=== PATIENT | female | born 1940 | race Caucasian/White ===

== ENCOUNTER → 2017-10-24 14:25 | Outpatient (REF) | payer MEDICARE, MEDICAID, SELFPAY ==
[2017-10-24 20:53] LABS: Prothrombin Time 9.4 sec (9.3-10.8)
[2017-10-24 20:58] LABS: Abs Immature Grans 0.01 k/cumm (0.0-0.09); Absolute Basophil Count 0.01 k/cumm (0.0-0.2); Absolute Eosinophil Count 0.07 k/cumm (0.0-0.7); Absolute Monocyte Count 0.64 k/cumm (0.11-0.7); Absolute Neutrophil Count 3.09 k/cumm (1.2-6.7); Basophils % 0.2; Eosinophils % 1.4; HCT 39.1 % (36.0-46.0); HGB 12.7 g/dL (12.0-15.5); Immature Grans % 0.2; Lymphocytes % 25.4; Mean Corp. HGB Concentration 32.5 g/dL (32.0-36.0); Mean Corpuscular Hemoglobin 31.4 pg (27.0-33.0); Mean Corpuscular Volume 96.5 fL (80-95); Mean Platelet Volume 9.8 fL (8.0-11.0); Monocytes % 12.5; Neutrophils % 60.3; Platelet Count 236 x1000/uL (130-400); RBC 4.05 m/cumm (4.00-5.20); RBC Distribution Width 12.9 % (11.7-14.6); White Blood Cell Count 5.12 k/cumm (4.4-10.8)
[2017-10-24 21:24] LABS: Anion Gap 9.7 mmol/L (3-11); BUN 17 mg/dL (7-18); CO2 27.3 mmol/L (21.0-32.0); CREATININE 1.02 mg/dL (0.55-1.02); Calcium 9.3 mg/dL (8.5-10.1); Chloride 104 mmol/L (98-107); Estimated GFR 52.83 (mL/min/1.73m2); Glucose 82 mg/dL (70-100); Potassium 4.8 mmol/L (3.5-5.1); Sodium 141 mmol/L (136-145)
== END ==
LOC: NCHCN 14:25
PROVIDERS: PCP Physician Assistant Medical; Visit Provider Physician Assistant Medical
DX: I67.1 Cerebral aneurysm, nonruptured (principal); I73.9 Peripheral vascular disease, unspecified; Z01.818 Encounter for other preprocedural examination
CPT/HCPCS: 80048; 85025; 85610

== ENCOUNTER → 2017-10-26 00:15 | Outpatient (CLI) | payer MEDICARE, MEDICAID, SELFPAY ==
--- NOTE | 2017-10-26 12:46 | DI.REPORT_ITS ---
SYMPTOMS/DIAGNOSIS: PAIN RT SI JOINTS, M53.3, RT HIP PAIN, M25.551 SI JOINTS: Three views were obtained. Mild degenerative changes are seen at the sacroiliac joints bilaterally. No ankylosis is seen. The bones appear mildly osteopenic. No acute fracture or subluxation is seen. Vascular calcifications are present. IMPRESSION: Mild degenerative changes of the sacroiliac joints. RIGHT HIP AND PELVIS: Two views. The right hip is well maintained. The bones are intact. No significant arthrosis is seen of the right hip. The soft tissues are unremarkable IMPRESSION: Negative right hip.
== END ==
PROVIDERS: PCP Physician Assistant Medical; Visit Provider Internal Medicine Rheumatology
DX: M53.3 Sacrococcygeal disorders, not elsewhere classified (principal); M25.551 Pain in right hip; M85.88 Other specified disorders of bone density and structure, other site; J44.9 Chronic obstructive pulmonary disease, unspecified; I67.1 Cerebral aneurysm, nonruptured; Z01.818 Encounter for other preprocedural examination
CPT/HCPCS: 71046; 72202; 73502

== ENCOUNTER → 2017-10-26 00:16 | Outpatient (CLI) | payer MEDICARE, MEDICAID, SELFPAY ==
--- NOTE | 2017-10-26 12:40 | DI.REPORT_ITS ---
SYMPTOMS/DIAGNOSIS: PRE OP, Z01.818, CEREBRAL ANEURYSM, I67.1 CHEST: Frontal and lateral views. Comparison is 08/14/16. The heart size and pulmonary vasculature are stable and within normal limits. No evidence of acute pneumonia or congestive heart failure is seen. The lungs appear hyperinflated suggesting underlying COPD. Pulmonary fibrotic changes are noted. No effusions or pneumothoraces are identified. Degenerative changes are seen in the spine. IMPRESSION: No acute pulmonary process.
== END ==
PROVIDERS: PCP Physician Assistant Medical; Visit Provider Physician Assistant Medical
DX: M53.3 Sacrococcygeal disorders, not elsewhere classified (principal); M25.551 Pain in right hip; M85.88 Other specified disorders of bone density and structure, other site; J44.9 Chronic obstructive pulmonary disease, unspecified; I67.1 Cerebral aneurysm, nonruptured; Z01.818 Encounter for other preprocedural examination
CPT/HCPCS: 71046

== ENCOUNTER 2017-12-25 14:44 | Outpatient (REF) | payer MEDICARE, MEDICAID, SELFPAY ==
[2017-12-25 21:02] LABS: Abs Immature Grans 0.01 k/cumm (0.0-0.09); Absolute Basophil Count 0.02 k/cumm (0.0-0.2); Absolute Eosinophil Count 0.06 k/cumm (0.0-0.7); Absolute Lymphocyte Count 1.08 k/cumm (1.2-3.4); Absolute Monocyte Count 0.36 k/cumm (0.11-0.7); Absolute Neutrophil Count 2.98 k/cumm (1.2-6.7); Basophils % 0.4; Eosinophils % 1.3; HGB 12.7 g/dL (12.0-15.5); Immature Grans % 0.2; Lymphocytes % 23.9; Mean Corp. HGB Concentration 31.8 g/dL (32.0-36.0); Mean Corpuscular Hemoglobin 30.2 pg (27.0-33.0); Mean Corpuscular Volume 95.2 fL (80-95); Mean Platelet Volume 9.8 fL (8.0-11.0); Neutrophils % 66.2; Platelet Count 249 x1000/uL (130-400); RBC Distribution Width 13.1 % (11.7-14.6); White Blood Cell Count 4.51 k/cumm (4.4-10.8)
[2017-12-25 21:10] LABS: ALT 36 U/L (12-78); AST 36 U/L (15-37); Albumin 3.6 g/dL (3.4-5.0); Alkaline Phosphatase 96 U/L (46-116); Anion Gap 5.3 mmol/L (3-11); BUN 17 mg/dL (7-18); Bilirubin, Total 0.4 mg/dL (0.2-1.0); CO2 29.7 mmol/L (21.0-32.0); CREATININE 0.82 mg/dL (0.55-1.02); Calcium 9.2 mg/dL (8.5-10.1); Chloride 105 mmol/L (98-107); Glucose 90 mg/dL (70-100); Potassium 4.6 mmol/L (3.5-5.1); Sodium 140 mmol/L (136-145); Total Protein 6.5 g/dL (6.4-8.2)
== END 2017-12-25 15:04 ==
LOC: NCHCN 14:44
PROVIDERS: PCP Physician Assistant Medical; Visit Provider Physician Assistant Medical
DX: R53.83 Other fatigue (principal)
CPT/HCPCS: 80053; 85025

== ENCOUNTER 2018-01-03 00:31 | Outpatient (CLI) | payer MEDICARE, MEDICAID, SELFPAY ==
--- NOTE | 2018-01-03 11:12 | DI.MAMMO_ITS ---
SYMPTOMS/DIAGNOSIS: SCREENING, Z12.31 MAMMOGRAM: Mammograms were interpreted according to the usual protocol including computer analysis with CAD system, tomosynthesis and C view imaging. Comparison is made with exams from 2012 through 2017. The breasts are composed of heterogeneously dense fibroglandular tissue, breast density Category C. No suspicious masses or suspicious microcalcifications are seen. There has been no significant change. IMPRESSION: Category I C, negative mammogram. Yearly screening mammography is recommended. [facility] ASSESSMENT OF FINDINGS: Negative. Category 1. Patient will receive a letter notifying them of these results. Bi-RADS category C. The breasts are heterogeneously dense, which may obscure small masses.
== END 2018-01-03 00:51 ==
PROVIDERS: PCP Physician Assistant Medical; Visit Provider Obstetrics & Gynecology Gynecology
DX: Z12.31 Encounter for screening mammogram for malignant neoplasm of breast (principal)
CPT/HCPCS: 77063; 77067

== ENCOUNTER 2018-01-29 08:33 | Outpatient (CLI) | payer MEDICARE, MEDICAID, SELFPAY ==
[2018-01-29 20:02] LABS: Vitamin B12 422 pg/mL (193-986)
[2018-01-31 12:28] LABS: Methylmalonic Acid 0.24 nmol/mL (<=0.40)
== END 2018-01-29 08:53 ==
PROVIDERS: PCP Physician Assistant Medical; Visit Provider Physician Assistant Medical
DX: E53.8 Deficiency of other specified B group vitamins (principal)
CPT/HCPCS: 36415; 80186; 82607

== ENCOUNTER 2019-01-06 01:00 | Outpatient (CLI) | payer MEDICARE, MEDICAID, SELFPAY ==
--- NOTE | 2019-01-06 11:10 | DI.MAMMO_ITS ---
EXAM: MAMMO SCREENING CLINICAL HISTORY: SCREENING, Z12.31 TECHNIQUE: Mammograms were interpreted according to the usual protocol including computer analysis with CAD system, tomosynthesis and C-view imaging. COMPARISON: December 2017 FINDINGS: The breasts are heterogeneously dense. No dominant mass or clumped microcalcification is identified in either breast. The current examination is compared with previous examinations including January 12 and there has been no gross interval change in appearance in comparison with the previous studies. IMPRESSION: No specific evidence of malignancy at this time. Routine screening examinations are suggested at year ly intervals in this age group according to the ACS/ACR guidelines. Category 1, breast density catego ry C. BI-RADS Cat 1 - Negative Breast Density - Category C - Heterogeneously dense
== END 2019-01-06 01:20 ==
PROVIDERS: PCP Physician Assistant Medical; Visit Provider Obstetrics & Gynecology Gynecology
DX: Z12.31 Encounter for screening mammogram for malignant neoplasm of breast (principal)
CPT/HCPCS: 77063; 77067

== ENCOUNTER 2019-04-01 12:14 | Outpatient (REF) | payer MEDICARE, MEDICAID, SELFPAY ==
[2019-04-01 22:03] LABS: Anion Gap 7.5 mmol/L (3-11); BUN 19 mg/dL (7-18); CO2 30.5 mmol/L (21.0-32.0); CREATININE 0.98 mg/dL (0.55-1.02); Calcium 9.2 mg/dL (8.5-10.1); Calculated LDL 144 mg/dL; Chloride 104 mmol/L (98-107); Cholesterol 247 mg/dL (<200); Estimated GFR 55.18 (mL/min/1.73m2); Glucose 93 mg/dL (74-106); HDL Cholesterol 90 mg/dL (40-60); Potassium 4.5 mmol/L (3.5-5.1); Sodium 142 mmol/L (136-145); Triglyceride 66 mg/dL (<150)
[2019-04-01 22:04] LABS: Hemoglobin A1C 5.8 % (3.8-5.6)
== END 2019-04-01 12:34 ==
LOC: NCHCN 12:14
PROVIDERS: PCP Physician Assistant Medical; Visit Provider Physician Assistant Medical
DX: I10 Essential (primary) hypertension (principal); R73.09 Other abnormal glucose
CPT/HCPCS: 80048; 80061; 83036

== ENCOUNTER 2019-09-09 12:11 | Outpatient (REF) | payer MEDICARE, MEDICAID, SELFPAY ==
--- NOTE | 2019-09-09 10:20 | PAPFT_PTH ---
PATIENT: Rehan Gann LOC: [facility] U#:[id number] AGE/SX: 79/F ROOM: RE09/09/[address]: Michelle Kingston : 1940 BED: DIS: 09/09/2019 SPEC #: [id number] RECD: 09/09/19 12:35 STATUS: NELSON REQ #: [id number] JAZMINE: 09/09/19 10:[address]: Michelle Kingston DEPT: [facility] [place] Cytology RECD BY: Aleja Guan ENTERED: 09/09/19 12:35 SP TYPE: PAPFT OTHR DR: Raquel Martin Tissues: 1 - CX/ENDOCX FOR PAP SMEARS Procedures: PAP THIN PREP/UVM Screening HPV DNA PROBE Comments: [id number]
== END 2019-09-09 12:31 ==
LOC: LBN 12:11
PROVIDERS: PCP Physician Assistant Medical; Visit Provider Obstetrics & Gynecology Gynecology
DX: Z12.4 Encounter for screening for malignant neoplasm of cervix (principal); Z11.51 Encounter for screening for human papillomavirus (HPV)
CPT/HCPCS: 88142; 87624

== ENCOUNTER 2019-12-17 06:22 | Emergency (ER) | payer MEDICARE, MEDICAID, SELFPAY ==
[2019-12-17] VITALS (9 sets, daily range): BP systolic 167–183; BP diastolic 72–80; PULSE 75–87; RESP 18–19; TEMP 36.6–36.9; O2SAT 79–97
--- NOTE | 2019-12-17 06:25 | ED.GENADUL_ITS ---
Discharge Plan Disposition Patient Disposition: HOME Condition: Improving Discharge Details Clinical Impression: Gallstones Primary Care Provider: Raquel Martin ED Provider: Marty Hansen Home Meds and New Rx's Prescriptions: New ondansetron HCl [Zofran] 4 mg tablet 4 mg PO QID PRN (Reason: nausea and vomiting) Qty: 10 RF: 0 Continued Spiriva with HandiHaler 18 MCG capsule, w/inhalation device 18 mcg Inhalation DAILY RF: 0 triamcinolone acetonide 0.5 % ointment 1 applic TP BID Qty: 15 RF: 1 lisinopril 2.5 MG tablet 2.5 mg PO DAILY RF: 0 albuterol sulfate [Proventil HFA] 200 PUFF HFA aerosol inhaler 2 puff Inhalation .Q4-6H PRN PRNRF: 0 Discharge Instructions Instructions: Biliary Colic (ED), Gallstones (ED) Additional Instructions: Home to rest today. Small, frequent sips of fluids to maintain hydration. Avoid fatty or fried foods. Return if you develop a fever, persistent vomiting, pain, or any other acute concerns. We will ask our care management team to arrange a follow-up appointment for you in surgery clinic. Resume normal routine and activities. May use Zofran as needed for nausea or abdominal pressure. Medical Decision Making <Justin Pagan MD - Last Filed: 12/17/19 07:44> Patient presents to ED with generalized abdominal discomfort mostly upper in nature with some nausea and belching. Denies chest pain. Has no localizing tenderness on exam. Consider gallbladder disease, ulcer disease, pancreatitis, less likely cardiac. IV placed. Fluids started. Zofran, Pepcid, morphine ordered. Laboratory studies sent. CT scan abdomen pelvis ordered. 07:45 - EKG without acute changes. Laboratory studies unremarkable. Urinalysis and CT scan pending. Patient declined morphine. Patient will be signed out to oncoming physician, Dr. Hansen, to follow-up on CT scan and reevaluate patient for disposition. Medical Records Medical records reviewed: Yes I reviewed the patient's medical records. Lab Data Lab results reviewed: Yes I reviewed the patient's lab results. ECG Data Attestation: I personally reviewed and interpreted this ECG (s) as follows: Interpretation: See EKG <Marty Hansen MD - Last Filed: 12/17/19 09:14> Received signout from Dr. Pagan. Patient improved following medications. Her CT images noted prominently distended gallbladder. See formal report. Labs unremarkable. Patient referred for ultrasound, + gallstones, no pericholecystic fluid or wall thickening. Consistent with biliary colic. We will refer her to surgery clinic for consultation. Discussed with her indications to seek return. She is stable for discharge home. Lab Data Lab results reviewed: Yes I reviewed the patient's lab results. Labs: Laboratory Results - last 24 hr 12/17/19 12/17/19 06:35 06:35 WBC 5.68 RBC 4.61 Hgb 14.1 Hct 44.1 MCV 95.7 H MCH 30.6 MCHC 32.0 RDW 12.6 Plt Count 186 MPV 9.2 Immature Gran % 0.4 Neutrophils % 81.9 Lymphocytes % 11.1 Monocytes % 6.2 Eosinophils % 0.2 Basophils % 0.2 Nucleated RBC % 0 Absolute Neutrophils 4.66 Absolute Lymphocytes 0.63 L Absolute Monocytes 0.35 Absolute Eosinophils 0.01 Absolute Basophils 0.01 Sodium 138 Potassium 4.4 Chloride 103 Carbon Dioxide 28.5 Anion Gap 6.5 BUN 15 Creatinine 0.89 Estimated GFR/1.73 m2 >= 60.00 Glucose 121 H Calcium 9.8 Magnesium 2.0 Total Bilirubin 0.6 AST 34 ALT 20 Alkaline Phosphatase 75 Troponin I < 0.05 Total Protein 7.4 Albumin 4.0 Lipase 109 HPI <Justin Pagan MD - Last Filed: 12/17/19 07:44> General Mode of arrival: wheelchair . Date/Time Provider Initiated Documentation: 12/17/19 06:25 . Limitations to Documentation: no limitations . Information obtained by: patient, RN notes reviewed and old records reviewed . HPI Narrative: Patient presents to ED with generalized abdominal discomfort, bloated and distended feeling. Some nausea and dry heaves intermittently overnight but no vomiting. No diarrhea. Denies having chest pain. Does report fair amount of belching. Cannot localize the pain anywhere in particular though seems to be mostly upper in nature. Denies fever, cough, shortness of breath. No urinary symptoms. Slight radiation to the back though not consistently. Status post tubal ligation but no other abdominal surgery in the past. Also complains of very mild headache. No other neurologic symptomatology. No URI symptoms. Related Data Home Medications Medication Instructions Recorded Confirmed lisinopril 2.5 mg PO DAILY 10/14/15 12/17/19 Spiriva with HandiHaler 18 mcg INHALATION DAILY tab-cap 01/31/17 12/17/19 albuterol sulfate [Proventil HFA] 2 puff INHALATION .Q4-6H PRN PRN 06/06/1711/25 triamcinolone acetonide 0.5 % 1 applic TP BID #15 gm 11/27/18 12/17/19 topical ointment ondansetron HCl [Zofran] 4 mg PO QID PRN #10 tab 12/17/19 Previous Rx's Medication Instructions Recorded triamcinolone acetonide 0.5 % 1 applic TP BID #15 gm 11/27/18 topical ointment ondansetron HCl [Zofran] 4 mg PO QID PRN #10 tab 12/17/19 Allergies Allergy/AdvReac Type Severity Reaction Status Date / Time pseudoephedrine HCl Allergy Intermediate Swelling/Ed Unverified 12/17/19 06:31 [From Sudafed] yuniel Sulfa (Sulfonamide Allergy itch/rash Unverified 12/17/19 06:31 Antibiotics) erythromycin base AdvReac Intermediate GI upset Unverified 12/17/19 06:31 codeine AdvReac hyper Unverified 12/17/19 06:31 Review of Systems <Justin Pagan MD - Last Filed: 12/17/19 07:44> Narrative: 01/06 Review of Systems completed and is negative except as stated above in HPI (Systems reviewed: Const, Eyes, ENT, Resp, CV, GI, , MSK, Skin, Neuro) PFSH <Justin Pagan MD - Last Filed: 12/17/19 07:44> Medical History (Updated 12/17/19 @ 09:05 by Marty Hansen MD) Cerebral aneurysm without rupture 2018 patient had aneurysm clipped at [facility]. No sequela Claudication of left lower extremity Dense breasts 2019. Category C. Normal mammogram. 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 + HR HPV beginning 2003. 2013 Pap Nl/HPV Neg 2014 Pap Nl/HPV + 2016 Pap Nl/HPV + ( Neg HPV 16 & 18) 2017 Pap Nl/HPV Neg HTN (hypertension) PMR (polymyalgia rheumatica) Pulmonary emphysema Surgical History S/P cataract surgery S/P tubal ligation Social History Smoking/Tobacco Use Status: Former Tobacco Use Tobacco: How many years used: 10 Alcohol Intake: never Drug use: Never Substance use type: does not use Household members: none and other Details: Lives alone at [address] [place]. D x20 years Number of Children: 5 number of grandchildren: 3 current occupation: Retired with 50 years [employer] Pets and animals: Yes (Jose Currie) Pets and animals: dog(s) Sexually active: No Do you feel safe at home: Yes Do you feel safe in your relationship?: Yes Additional Social history: Son-Arron. 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 GC - Bhargav 24, Naeem 20, Pavithra 21. Female Reproductive History Menstrual Menopause type: natural History History 6 Para Hx # Term Pregnancies 5 Multiple births Hx # Pregnancies Ectopic pregnancies AB induced Hx Number of Living Children AB spontaneous Exam <Justin Pagan MD - Last Filed: 12/17/19 07:44> Narrative Exam Narrative: Vitals: Afebrile. Hypertensive otherwise normal vitals and normal room air pulse ox. Const: WDWN elderly female in NAD. HEENT: NC/AT. Normal facial exam. Eyes: Normal conjunctiva and sclera. Neck: Supple. Trachea midline. Lungs: Normal respiratory effort. Lungs are clear. Cor: RRR without murmur/gallop. Good radial pulses. GI: Soft. Some mild distention. Generalized upper abdominal discomfort but no true tenderness. No guarding or rebound. No Ruvalcaba sign. Neuro: A+O x 3. Normal speech, mentation, gait. Cranial nerves II - XII grossly intact. No gross motor or sensory deficit. Ext: No C/C/E. Skin: Warm and dry without rash. Sign Out <Justin Pagan MD - Last Filed: 12/17/19 07:44> Sign Out Data: Sign Out Comment: pending CT Last updated by Justin Pagan MD at 12/17/19 07:48
--- NOTE | 2019-12-17 06:30 | RT.EKG_ITS ---
APPROVED REPORT Exam: Resting ECG Patient Location: E HR:76 bpm ECG Measurements Heart Rate 76 AXIS KS 164 P -54 QRSd 134 QRS 71 QT 439 T 12 QTc 493 Conclusion Sinus or ectopic atrial rhythm...P axis (-45,135) Right bundle branch block...QRSd>120, terminal axis(90,270) No STEMI.
--- NOTE | 2019-12-17 06:30 | DI.CT_ITS ---
EXAM: CT ABDOMEN PELVIS W CLINICAL HISTORY: generalized abd pain, distended TECHNIQUE: Imaging Protocol: Axial computed tomography images with coronal and sagittal reformatted images were created and reviewed CONTRAST MATERIAL: Intravenous: Omnipaque 350 Contrast volume:100 mL Oral: No COMPARISON: No exams were available for comparison FINDINGS: ABDOMEN: Lung Bases: Centrilobular emphysema. Nodular opacities are seen in the lung bases bilaterally. Smal l hiatal hernia. Liver: Normal density. No measurable mass. There is a nodular contour of the liver suspicious for hep atic cirrhosis. Portal, Superior Mesenteric, and Splenic Veins: Unremarkable. Gallbladder and Biliary Tract: No radiodense calculus or dilation. Pancreas: Normal density, no abnormal calcifications or inflammatory process. Spleen: Normal. Adrenals: No masses seen. Kidneys: Normal size, contour and axis. No radiodense stones or obstructive uropathy. Tiny hypodensit y in the lower pole of the left kidney. It is too small for further characterization but likely refl ects a small cyst. Abdominal Aorta: Abdominal portion non-dilated. 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 Bowel: No obstruction or bowel wall thickening. No evidence of appendicitis. Colonic diverticulosis. No evidence of acute diverticulitis. Peritoneal Cavity: No ascites, collection or mesenteric inflammatory response. Lymph Nodes: Within normal limits. Bones: Degenerative changes are seen in the spine. Soft Tissues: Unremarkable. PELVIS: Bladder: Symmetric distention, no gross wall thickening. Reproductive Organs: Unremarkable as visualized. Lymph Nodes: Within normal limits. Bones: Degenerative changes. IMPRESSION: 1. Nodular opacities in the lung bases which may reflect non-specific small airways disease. 2. Findings suggestive of hepatic cirrhosis. 3. Colonic diverticulosis but no evidence of acute diverticulitis. 4. No stones or biliary ductal dilatation. If there is concern for gallbladder disease, ultrasound m ay be considered for further evaluation. RADIATION DOSE DELIVERED: 945.47mGy.cm Total DLP DATA REPOSITORY: All CT scans at this facility are submitted to the National Radiology Data Registry (NRDR) Dose Index Registry (DIR) with the [employer] (ACR). RADIATION OPTIMIZATION: All CT scans at this facility use at least one of these dose optimization te chniques: automated exposure control; mA and/or kV adjustment per patient size (includes targeted exa ms where dose is matched to clinical indication); or iterative reconstruction.
[2019-12-17] MEDS: Ondansetron 4 MG/2 ML VIAL IVP (06:53)
[2019-12-17] MEDS: FAMOTIDINE 20 MG/50 ML BAG 100 MG IVPB (06:53)
[2019-12-17] MEDS: Normal Saline Flush 10 ML SYR IVP (06:54)
[2019-12-17] MEDS: Lactated Ringers 1,000 ML 125 ML IV (06:54)
[2019-12-17 07:05] LABS: Abs Immature Grans 0.02 10^3/uL (0.0-0.06); Absolute Basophil Count 0.01 10^3/uL (0.0-0.2); Absolute Eosinophil Count 0.01 10^3/uL (0.0-0.7); Absolute Lymphocyte Count 0.63 10^3/uL (1.2-3.4); Absolute Monocyte Count 0.35 10^3/uL (0.1-0.8); Absolute Neutrophil Count 4.66 10^3/uL (1.2-6.7); Basophils % 0.2; Eosinophils % 0.2; HCT 44.1 % (36.0-46.0); HGB 14.1 g/dL (11.2-15.7); Immature Grans % 0.4; Lymphocytes % 11.1; MCH 30.6 pg (27.0-33.0); MCV 95.7 fL (80-95); MPV 9.2 fL (8.0-11.0); Monocytes % 6.2; Neutrophils % 81.9; Nucleated RBC 0 %; Platelet Count 186 10^3/uL (130-400); RBC 4.61 10^6/uL (3.93-5.22); RDW 12.6 % (11.7-14.6); RDW-SD 43.8 fL; WBC 5.68 10^3/uL (4.4-10.8)
[2019-12-17 07:29] LABS: ALT 20 U/L (14-59); AST 34 U/L (15-37); Alkaline Phosphatase 75 U/L (46-116); Anion Gap 6.5 mmol/L (3-11); BUN 15 mg/dL (7-18); Bilirubin, Total 0.6 mg/dL (0.2-1.0); CO2 28.5 mmol/L (21.0-32.0); CREATININE 0.89 mg/dL (0.55-1.02); Calcium 9.8 mg/dL (8.5-10.1); Chloride 103 mmol/L (98-107); Glucose 121 mg/dL (74-106); Lipase 109 U/L (73-393); Potassium 4.4 mmol/L (3.5-5.1); Sodium 138 mmol/L (136-145); Total Protein 7.4 g/dL (6.4-8.2)
[2019-12-17 07:32] LABS: Troponin I < 0.05 ng/mL (<0.06)
[2019-12-17] MEDS: Omnipaque 350 MG/ML 100 ML BTL IV (07:50)
--- NOTE | 2019-12-17 08:15 | DI.US_ITS ---
EXAM: US ABDOMEN LIMITED CLINICAL HISTORY: abd pain, distended gallbladder TECHNIQUE: Ultrasound abdomen performed using standard protocol. COMPARISON: CT CT ABDOMEN PELVIS W from 12/17/2019 FINDINGS: ABDOMINAL AORTA AND IVC: Visualized portions normal caliber. PANCREAS: Normal where visualized. LIVER: Increased echogenicity consistent with fatty infiltration. Hepatopedal flow in the Portal Vei n. 14.3 cm in length. GALLBLADDER: Multiple mobile gallstones. The largest measures 1.6 cm. No evidence of wall thickenin g. No pericholecystic fluid identified. BILIARY SYSTEM: Common bile duct measures < 7 mm. No intrahepatic biliary ductal dilation. THOMPSON'S SIGN: Negative. KIDNEYS: Right kidney is unremarkable. No evidence of renal calculi. No evidence of hydronephrosis. No renal mass or cyst identified. ASCITES: None seen. IMPRESSION: 1. Cholelithiasis. No biliary ductal dilatation. No sonographic findings to suggest acute cholecyst itis. 2. Fatty liver. 3. Findings were discussed with the emergency department on the date of the examination. DATA REPOSITORY:
--- NOTE | 2019-12-17 08:17 | DI.VRAD_ITS ---
PROCEDURE INFORMATION: Exam: CT Abdomen And Pelvis With Contrast Exam date and time: 12/17/2019 6:46 AM Age: 79 years old Clinical indication: Other: Generalized abd pain, distended TECHNIQUE: Imaging protocol: Computed tomography of the abdomen and pelvis with intravenous contrast. Contrast material: OMNIPAQUE 350; Contrast volume: 100 ml; Contrast route: INTRAVENOUS (IV); COMPARISON: CR RT HIP COMPLETE AP PELVIS 10/26/2017 12:46 PM FINDINGS: Lungs: Nodular opacities at the lung bases may reflect nonspecific small airways disease. Liver: Equivocal micro nodular hepatic cirrhosis Gallbladder and bile ducts: The gallbladder is prominently distended but not obviously thick-walled. No calcified stones evident. Sonography however recommended if right upper quadrant symptoms are present to exclude cholecystitis. Pancreas: Normal. No ductal dilation. Spleen: Normal. No splenomegaly. Adrenals: Normal. No mass. Kidneys and ureters: Normal. No hydronephrosis. Stomach and bowel: Unremarkable. No obstruction. No mucosal thickening. Appendix: No evidence of appendicitis. Intraperitoneal space: Unremarkable. No free air. No significant fluid collection. Vasculature: Prominent atherosclerotic calcifications of the abdominal aorta are noted. High-grade ostial SMA stenosis Lymph nodes: Unremarkable. No enlarged lymph nodes. Urinary bladder: Unremarkable as visualized. Reproductive: Unremarkable as visualized. Bones/joints: Unremarkable. No acute fracture. Soft tissues: Unremarkable. IMPRESSION: 1. Nodular opacities at the lung bases may reflect nonspecific small airways disease. 2. The gallbladder is prominently distended but not obviously thick-walled. No calcified stones evident. Sonography however recommended if right upper quadrant symptoms are present to exclude cholecystitis. 3. Equivocal micro nodular hepatic cirrhosis Dictated and Authenticated by: Moiz Lizama MD. Ordering:VASU Anderson MD
--- NOTE | 2019-12-17 09:00 | NUR.NOTE ---
Nursing Note: Referral for follow up with [facility] faxed. Aditi Burciaga
== END 2019-12-17 09:17 | disposition home or self-care (01) ==
PROVIDERS: Emergency Medicine; Emergency Provider Emergency Medicine; PCP Physician Assistant Medical
DX: K80.20 Calculus of gallbladder without cholecystitis without obstruction (principal); I10 Essential (primary) hypertension
CPT/HCPCS: 36415; 80053; 83690; 93005; 96361; 96365; 96366; 96375; 99285; 74177; 76705; 83735; 84484; 85025; 93010; J2270; J2405; J3490

== ENCOUNTER → 2019-12-19 10:52 | Outpatient (BNVA) | payer MEDICARE, MEDICAID, SELFPAY | PROVIDERS: PCP Physician Assistant Medical; Referring Provider Physician Assistant Medical; Visit Provider Surgery | DX: K80.50 Calculus of bile duct without cholangitis or cholecystitis without obstruction (principal); Z11.59 Encounter for screening for other viral diseases; I10 Essential (primary) hypertension | CPT/HCPCS: 99213 ==

== ENCOUNTER 2019-12-26 04:21 | Outpatient (CLI) | payer MEDICARE, MEDICAID, SELFPAY ==
[2019-12-27 20:39] LABS: COVID-19 RT-PCR Result NEGATIVE (Negative)
== END 2019-12-26 04:41 ==
PROVIDERS: PCP Physician Assistant Medical; Visit Provider Surgery
DX: Z11.59 Encounter for screening for other viral diseases (principal); Z01.818 Encounter for other preprocedural examination
CPT/HCPCS: U0003

== ENCOUNTER 2019-12-30 06:06 | Day surgery (SDC) | payer MEDICARE, MEDICAID, SELFPAY ==
--- NOTE | 2019-12-29 08:18 | GB_PTH ---
PATIENT: Rehan Gann LOC: [facility] U#:[id number] AGE/SX: 79/F ROOM: RE12/30/[address]: Thi Kelsey MD : 1940 BED: DIS: 12/30/2019 SPEC #: [id number] RECD: 12/30/19 09:36 STATUS: NELSON REQ #: [id number] JAZMINE: 12/29/19 08:[address]: Thi Kelsey DEPT: Surgical Specimen RECD BY: Cindy Roca ENTERED: 12/30/19 09:37 SP TYPE: GB OTHR DR: Raquel Martin Tissues: 1 - GALLBLADDER Procedures: GROSS AND MICRO LEVEL 3 Comments: [id number]
[2019-12-30] VITALS (9 sets, daily range): BP systolic 124–150; BP diastolic 40–73; PULSE 59–69; RESP 12–20; TEMP 36.3–36.6; O2SAT 94–99
[2019-12-30] MEDS: Celecoxib 200 MG CAP PO (06:45)
[2019-12-30] MEDS: Lactated Ringers 1,000 ML 80 ML IV ×2 (06:45→08:04)
[2019-12-30] MEDS: Acetaminophen 500 MG TAB 1000 MG PO (06:45)
--- NOTE | 2019-12-30 07:03 | W.PM.OP ---
Date of service: 12/30/19 Time of Service: 08:43 Operative Note Operative Note DATE OF PROCEDURE: 12/30/19 PRE-OP DIAGNOSIS: Biliary Cholic POST-OP DIAGNOSIS: same (and cirrhosis of the liver) PROCEDURE: Laparoscopic Cholecystectomy SURGEON: Thi Kelsey PURCHASING DEPARTMENT CLERK: Vida Moya ANESTHESIA: GETA (ASA 2/ Don Wheeler CRNA) ESTIMATED BLOOD LOSS: 25 PATHOLOGY: other (Gallbladder and content) COMPLICATIONS: None Patient was transported to: PACU Patient's condition: stable Indications: 79 year old female with biliary colic. She continues to have some upper abdominal tightness and discomfort. She is at this point eating a low-fat diet. We reviewed the anatomy of the gallbladder. We went over the surgery and its complications. We discussed nonsurgical treatment with dietary changes. Patient would like to move forward with laparoscopic cholecystectomy. Over testing was discussed prior to surgery as per state guidelines. Findings: Mild inflammation around the Gallbladder Cirrhosis of the liver Short Cystic duct Procedure Description: After informed consent was obtained the patient was brought to the operating room, placed in a supine position and monitors were applied. SCDs were applied to her lower extremities and she was placed under general anesthesia and intubated without difficulty. Her abdomen was then prepped and draped in a sterile fashion using ChloraPrep. At this point a timeout was done and the patient's name, date of , procedure type, allergies to medications, metal in her body, antibiotic and DVT prophylaxis, and fire risk was assessed. At this point 1% Lidocaine was injected just above the umbilicus into the dermis and subcutaneous tissue. A 5 mm incision was made with an 11 blade. The skin next to the incision was grasped with penetrating towel clamps and while pulling up on the skin a 5 mm port was placed under direct visualization. The abdomen was insuflated and then 3 more ports were placed. A 12 mm port was placed in the subxiphoid area and two 5 mm ports were placed in the right upper quadrant. The liver was inspected. The liver looked cirrhotic and enlarged. The patient's bed was then turned to the left and her head was brought up. The gallbladder was grasped at the body and pushed towards the right shoulder, this allowed me to visualize the neck of the gallbladder. There was omentum attached to the Gallbladder and this was taken down using a murphy dissector and cautery. The neck was grasped and pulled towards the right flank and down allowing me to visualize the lymph node. Using a [place] dissector with cautery the lymph node was gently dissected away from the tissues and the fatty tissue was also dissected away. The cystic duct was identified it was normal in size. The duct was short. The common bile duct was identified. The duct was dissected 360 degrees using the [place] dissector in order for me to visualize its entrance into the gallbladder. Liver was noted behind it. There were no other structures right behind. Critical view was achieved. 3 clips were placed one proximal and 2 distal and the cystic duct was cut. The cystic artery was then identified and dissected 360 degrees. It was located just medial to the cystic duct. It was visualized going into the gallbladder. Once dissected 3 more clips were placed one proximal and 2 distal and the artery was cut. Using the hook dissector the gallbladder was then dissected away from the liver bed and placed into an Endo Catch bag and pulled through the 12 mm port site. The 12 mm port was placed back into the abdomen under direct visualization. The liver bed was inspected, there was mild bleeding noted. The bleeding was stopped with cautery. A 4x4 was placed into the abdomen and pressure was applied to the liver bed. The 4x4 was removed. The abdomen was then irrigated with 200 cc of normal saline until the effluent was clear. Floseal was then injected onto the liver bed. Next the rest of the local anesthetic mixture was injected above the liver to help with postoperative right shoulder pain. The 12 mm and the 2 right upper quadrant ports were removed under direct visualization and no bleeding was noted from the fascia. The abdomen was deflated completely and lastly the umbilical port was removed. The skin was cleaned and the incisions were closed with 4-0 Vicryl. The skin was dried and mastasol and steri-strips were applied over the closed incisions. 4x4 were applied and secured with tegaderm. Needle and sponge counts were correct at the end of the case. At this point the patient was woken up, extubated and taken back to recovery in stable condition. There were no immediate complications.
--- NOTE | 2019-12-30 07:07 | PDOC.DSDIS_ITS ---
Discharge Plan Disposition Patient Disposition: HOME Condition: Good Discharge Details Reason For Visit: Laparoscopic Cholecystectomy Attending Provider: Thi Kelsey Primary Care Provider: Raquel Martin Home Meds and New Rx's Prescriptions: New acetaminophen [Tylenol] 325 mg tablet 650 mg PO Q6H PRNQty: 30 RF: 0 ibuprofen 600 mg tablet 600 mg PO Q6H PRNQty: 30 RF: 0 oxycodone 5 mg tablet 5 mg PO Q6H PRNQty: 14 RF: 0 Continued Spiriva with HandiHaler 18 MCG capsule, w/inhalation device 18 mcg Inhalation DAILY RF: 0 triamcinolone acetonide 0.5 % ointment 1 applic TP BID Qty: 15 RF: 1 lisinopril 2.5 MG tablet 2.5 mg PO DAILY RF: 0 albuterol sulfate [Proventil HFA] 200 PUFF HFA aerosol inhaler 2 puff Inhalation .Q4-6H PRN PRNRF: 0 Discharge Instructions Additional Instructions: Activity at Home after surgery: 1. Make sure you walk outside at least 4 times per day 2. You should be able to climb a flight of stairs 3. No driving while in pain or taking pain medications 4. No strenuous activity or heavy lifting for 2 weeks (laparoscopic surgery) Diet, Nutrition, & wound healin. Avoid alcohol until after you are recovered from your surgery 2. Make sure to eat plenty of lean protein (meat, fish, eggs, cottage cheese, beans) 3. Eat a variety of fruits and vegetables. Eat plenty of high fiber foods to avoid constipation. 4. Drink plenty of liquids to stay hydrated and avoid constipation Pain Medications: 1.Tylenol 650 mg every 6 hours as needed and Ibuprofen 600 mg every 6 hours as needed. You may alternate between the two medications every 3 hours 2. If a narcotic has been prescribed take as directed only for breakthrough pain For Constipation: 1. Take Milk of Magnesia or MiraLax as needed for constipation Other: 1. You may shower daily. Do not scrub the incisions 2. Do not soak the incisions for 1 week 3. You may alternate ice and heat as needed for pain and swelling Wound Care: 1. Keep the incisions clean and dry Please call our office if you develop: 1. Fevers >101.5 2. Nausea or Vomiting 3. Worsening pain 4. Redness and thick discharge from the wounds If after hours please call the Hospital at and ask to speak to the on-call surgeon Referrals: Thi Kelsey MD [ [facility] STAFF PHYSICIAN] - 01/13/20 9:30 am Activity:: No lifting >20 lb x 2 weeks Remove Dressings/Wound Care:: Do Not Remove Shower/Bathe:: 24 hours Diet:: low fat for 2 weeks Discharge Orders Discharge Orders: Discharge Order (Routine); Ordered 12/30/19 Ordered By: Thi Kelsey
[2019-12-30] MEDS: Lidocaine 1% Multi-Dose 50 ML VIAL (08:04)
[2019-12-30] MEDS: fentaNYL 100 MCG/2 ML VIAL IVP (09:18)
[2019-12-30] MEDS: oxyCODONE 5 MG TAB PO (10:15)
== END 2019-12-30 11:45 | disposition home or self-care (01) ==
PROVIDERS: PCP Physician Assistant Medical; Visit Provider Surgery
PROC: 0FT44ZZ Resection of Gallbladder, Percutaneous Endoscopic Approach (ICD-10-PCS; CPT 47562; principal; 2019-12-30 07:30)
DX: K80.20 Calculus of gallbladder without cholecystitis without obstruction (principal); K74.60 Unspecified cirrhosis of liver
CPT/HCPCS: 47562; 88304; J0295; J1100; J2405; J2704; J3010

== ENCOUNTER 2020-01-09 04:36 | Outpatient (CLI) | payer MEDICARE, MEDICAID, SELFPAY ==
--- NOTE | 2020-01-09 09:00 | DI.MAMMO_ITS ---
EXAM: MG MAMMO SCREENING CLINICAL HISTORY: screening TECHNIQUE: Bilateral full field digital CC and MLO mammographic images were obtained with 3D tomosyn thesis and utilizing computer aided detection (CAD). COMPARISON: Available for comparison. FINDINGS: Masses/Architectural Distortion: None seen. Microcalcifications: No suspicious pleomorphic-type are seen. Skin Thickening/Nipple Retraction: None. IMPRESSION: 1. No significant interval change with no specific features of malignancy noted. 2. Unless there is more urgent need, screening mammography is recommended, as per [employer] guidelines. BI-RADS Category 1 - Negative Breast Density - Category C - Heterogeneously dense The mammogram demonstrates the patient's breast tissue is dense. Dense breast tissue is very common a nd is not abnormal but dense breast tissue can make it harder to find cancer on a mammogram. Also, de nse breast tissue may increase their breast cancer risk. This information about the result of the [facility] mogram report was provided to the patient to raise their awareness. Use this report when you speak wi th the patient about their risks for breast cancer, which includes their family history. At that time , you may recommend for more screening tests (Ultrasound or MRI) as they might be useful based on the ir risk. A negative radiographic report should not delay biopsy if a dominant or clinically suspicious mass is present. Up to ten percent of cancers are not identified on mammography. A negative report may reinforce clinical impression. Adenosis and dense breasts may obscure an underlying neoplasm. False positive reports average 6 to 10%. Patient will receive a letter notifying them of these results.
== END 2020-01-09 04:56 ==
PROVIDERS: PCP Physician Assistant Medical; Visit Provider Obstetrics & Gynecology Gynecology
DX: Z12.31 Encounter for screening mammogram for malignant neoplasm of breast (principal)
CPT/HCPCS: 77063; 77067

== ENCOUNTER → 2020-01-13 09:20 | Outpatient (BNVA) | payer MEDICARE, MEDICAID, SELFPAY | PROVIDERS: PCP Physician Assistant Medical; Referring Provider Physician Assistant Medical; Visit Provider Surgery | DX: Z48.815 Encounter for surgical aftercare following surgery on the digestive system (principal); I10 Essential (primary) hypertension ==

== ENCOUNTER 2020-02-03 13:54 | Outpatient (REF) | payer MEDICARE, MEDICAID, SELFPAY ==
[2020-02-08 12:38] LABS: Patient Race White; SARS-CoV-2 RNA Undetected (Undetected); SARS-CoV-2 Specimen Source Nasal
== END 2020-02-03 14:14 ==
LOC: NCHCN 13:54
PROVIDERS: PCP Physician Assistant Medical; Visit Provider Physician Assistant Medical
DX: Z11.59 Encounter for screening for other viral diseases (principal); Z00.00 Encounter for general adult medical examination without abnormal findings
CPT/HCPCS: U0003

== ENCOUNTER 2020-02-13 18:44 | Outpatient (CLI) | payer MEDICARE, MEDICAID, SELFPAY ==
--- NOTE | 2020-02-13 12:10 | DI.RAD_ITS ---
EXAM: XR KNEE RT 3V AP,LAT,SUPRIYA CLINICAL HISTORY: RT KNEE PAIN, M25.561. TECHNIQUE: 2D digital imaging was performed. COMPARISON: CR CHEST 2 VIEWS PA,LAT from 10/26/2017 FINDINGS: BONES: No acute fracture is present. No bony destructive lesion is seen. There is an enthesophyte at the superior patella. JOINTS: The knee is normally aligned. No joint effusion is seen. Minimal degenerative changes are see n in the knee. SOFT TISSUE: Atherosclerosis. IMPRESSION: No acute fracture or dislocation. DATA REPOSITORY: RADIATION DOSE DELIVERED:
== END 2020-02-13 19:04 ==
PROVIDERS: PCP Physician Assistant Medical; Visit Provider Physician Assistant Medical
DX: M25.561 Pain in right knee (principal)
CPT/HCPCS: 73562

== ENCOUNTER 2020-05-01 08:22 | Emergency (ER) | payer MEDICARE, MEDICAID, SELFPAY ==
[2020-05-01] VITALS (27 sets, daily range): BP systolic 135–175; BP diastolic 70–88; PULSE 68–87; RESP 14–22; TEMP 36.4; O2SAT 83–100
--- NOTE | 2020-05-01 08:15 | RT.EKG_ITS ---
APPROVED REPORT Exam: Resting ECG Patient Location: E HR:69 bpm ECG Measurements Heart Rate 69 AXIS FL 154 P 82 QRSd 127 QRS 84 QT 449 T 26 QTc 482 Conclusion Sinus rhythm. bigeminy Right bundle branch block...QRSd>120, terminal axis(90,270)
--- NOTE | 2020-05-01 08:45 | DI.CT_ITS ---
EXAM: CT ABDOMEN PELVIS W CLINICAL HISTORY: recent cholecystectomy, abd pain/pressure TECHNIQUE: Imaging Protocol: Axial computed tomography images with coronal and sagittal reformatted images were created and reviewed CONTRAST MATERIAL: Intravenous: Omnipaque 350 Contrast volume:100 mL Oral: No COMPARISON: CT CHEST WITH CONTRAST from 08/30/2010 CT CHEST WITH CONTRAST from 08/30/[address] ABDOMEN PELVIS W from 12/17/2019 FINDINGS: ABDOMEN: Lung Bases: Stable emphysematous changes are seen in the lung bases. Stable reticular nodular opacit ies are seen in the lung bases. Liver: The liver has an unchanged appearance suggestive of cirrhosis. No evidence of a hepatic mass. The liver measures 14 cm in length. Portal, Superior Mesenteric, and Splenic Veins: Unremarkable. Gallbladder and Biliary Tract: The patient is status post cholecystectomy. No biliary ductal dilatat ion. No focal fluid collection is seen in the gallbladder bed. Pancreas: Normal density, no abnormal calcifications or inflammatory process. Spleen: Normal. Adrenals: No masses seen. Kidneys: Normal size, contour and axis. No radiodense stones or obstructive uropathy. No masses seen. Abdominal Aorta: Abdominal portion non-dilated. Atherosclerosis. There is atherosclerosis at the audelia gin of the superior mesenteric artery resulting in [id number]-[id number] stenosis. Bowel: No obstruction or bowel wall thickening. Appendix is unremarkable. Diverticulosis of the sigmo id colon but no evidence of acute diverticulitis. Moderate amount of retained stool throughout the c olon. Small hiatal hernia. Peritoneal Cavity: No ascites, collection or mesenteric inflammatory response. No free air. Lymph Nodes: Within normal limits. Bones: Within normal limits for the patient's age. Soft Tissues: Small fat containing umbilical hernia. PELVIS: Bladder: Symmetric distention, no gross wall thickening. Reproductive Organs: Unremarkable as visualized. Lymph Nodes: Within normal limits. Bones: Within normal limits for the patient's age. IMPRESSION: 1. Status post cholecystectomy. No evidence of biliary ductal dilatation or fluid collection in the gallbladder bed. 2. Stable bilateral nodular interstitial infiltrate in the lung bases. Differential considerations i nclude chronic interstitial disease, infectious or inflammatory process. 3. Findings suggestive of hepatic cirrhosis. RADIATION DOSE DELIVERED: 965.09mGy.cm Total DLP DATA REPOSITORY: All CT scans at this facility are submitted to the National Radiology Data Registry (NRDR) Dose Index Registry (DIR) with the [employer] (A[employer]). RADIATION OPTIMIZATION: All CT scans at this facility use at least one of these dose optimization te chniques: automated exposure control; mA and/or kV adjustment per patient size (includes targeted exa ms where dose is matched to clinical indication); or iterative reconstruction.
--- NOTE | 2020-05-01 08:48 | NUR.NOTE ---
Nursing Note: pt reports having gallbladder removed in Dec 2019. States she feels {the pain feels like this
--- NOTE | 2020-05-01 08:55 | DI.RAD_ITS ---
EXAM: XR PORTABLE CHEST AP CLINICAL HISTORY: abdominal pressure towards rib cage TECHNIQUE: 2D digital imaging was performed. COMPARISON: CR CHEST 2 VIEWS PA,LAT from 10/26/2017 FINDINGS: MEDIASTINUM: Normal. HEART: Normal. PULMONARY VASCULATURE: Normal. LUNGS: Scattered interstitial infiltrates are seen in the lungs not present on the prior examination. Acute interstitial pneumonia should be considered. Interstitial edema cannot be excluded. PLEURAL SPACE: No pleural effusion or pneumothorax. BONE:Within normal limits for the patient's age. OTHER FINDINGS:Normal. IMPRESSION: Patchy bilateral interstitial infiltrates. This may represent pneumonia or edema. Please correlate clinically. DATA REPOSITORY: RADIATION DOSE DELIVERED:
--- NOTE | 2020-05-01 08:59 | ED.GENADUL_ITS ---
Discharge Plan Disposition Patient Disposition: HOME Condition: Good Discharge Details Clinical Impression: Pneumonia, COVID-19 Primary Care Provider: Raquel Martin ED Provider: Aleja Soni Home Meds and New Rx's Prescriptions: New doxycycline hyclate 100 mg capsule 100 mg PO BID Qty: 20 RF: 0 Continued acetaminophen [Tylenol] 325 mg tablet 325 mg PO Q6H PRNRF: 0 Spiriva with HandiHaler 18 MCG capsule, w/inhalation device 18 mcg Inhalation DAILY RF: 0 triamcinolone acetonide 0.5 % ointment 1 applic TP BID Qty: 15 RF: 1 lisinopril 2.5 MG tablet 2.5 mg PO DAILY RF: 0 Discharge Instructions Instructions: Viral Syndrome (ED) Additional Instructions: You are being evaluated for possible COVID-19, you should isolate, not leave your house Anyone that you have had a exposure with should also isolate until your test returns You should test your pulse oximeter several times a day and if your oxygen dips below 90%, you should return to the emergency room Your chest will take 48 to 72 hours to return, we will notify you if this is positive, you should behave as though you have a positive Covid swab until proven otherwise Take the antibiotic as prescribed there is evidence of pneumonia on your x-ray, COVID-19 can also cause these findings I recommend reevaluation in 48 hours, you should not be evaluated by your doctor until your Covid test returned but a virtual visit is a safe and good alternative Please return immediately with low oxygen, worsening symptoms, shortness of breath, or with any new or worsening complaints Discharge Data Discharge Date/Time-TO BE ENTERED AT DEPARTURE: 05/01/20 11:31 Medical Decision Making Patient with bilateral interstitial infiltrates on her chest x-ray concerning for pneumonia, she was treated with doxycycline, the other concerning findings are that she has leukopenia and lymphocytopenia which may be consistent with COVID-19, she has a swab pending at this time She ambulated for 2 minutes and was not noted to be hypoxic in fact her oxygen saturation was 98% throughout her visit She is speaking in complete sentences, currently asymptomatic The remainder of her do not show acute pathology Clinically low suspicion for pulmonary embolism, she is not tachypneic, tachycardic, or hypoxic, aside from age she does not have any risk factors Her CT abdomen pelvis did not show acute pathology She is instructed to follow-up on Sunday and instructed to isolate until her Covid swab should return She is encouraged to have a virtual visit with her doctor on Sunday for reassessment and to use her pulse oximeter at home She does have a pulse ox in number, the confirmed She is discharged home in stable condition with stable vital given very low threshold to return should she have new or complaints She has a negative troponin her symptoms are more of an abdominal pressure and her symptoms have been present for some yesterday evening, there is no indication for repeat troponin Her EKG did not show acute pathology as well Differential Diagnosis Differential Diagnosis: Pneumonia, bowel obstruction, abscess, COVID-19 Medical Records Medical records reviewed: Yes I reviewed the patient's medical records. Lab Data Lab results reviewed: Yes I reviewed the patient's lab results. HPI This 80-year-old female with past medical history of hypertension, cerebral aneurysm (without rupture, HPV, PMR, and pulmonary emphysema presents with reported intermittent pressure in her abdomen. She is status post cholecystectomy in December. She states of uneventful. She denies any fever or chills. She had some intermittent nausea without vomiting. She denies any chest pain or shortness of breath. She has any pleuritic symptoms. She denies any urinary complaints. Patient denies any known exacerbating or alleviating factors. Patient was able to sleep through the night. She denies any current nausea. She denies headache. She status post Covid vaccine #1 on 04/21. She lives independently and denies any known sick contacts. She has not been coughing. Denies any weight gain. Denies orthopnea. General Date/Time Provider Initiated Documentation: 05/01/20 08:27 . Related Data Home Medications Medication Instructions Recorded Confirmed lisinopril 2.5 mg PO DAILY 10/14/15 05/01/20 Spiriva with HandiHaler 18 mcg INHALATION DAILY tab-cap 01/31/17 05/01/20 triamcinolone acetonide 0.5 % 1 applic TP BID #15 gm 11/27/18 05/01/20 topical ointment acetaminophen 325 mg tablet 325 mg PO Q6H PRN tab 01/13/20 05/01/20 doxycycline hyclate 100 mg PO BID #20 cap 05/01/20 Previous Rx's Medication Instructions Recorded triamcinolone acetonide 0.5 % 1 applic TP BID #15 gm 11/27/18 topical ointment doxycycline hyclate 100 mg PO BID #20 cap 05/01/20 Allergies Allergy/AdvReac Type Severity Reaction Status Date / Time pseudoephedrine HCl Allergy Intermediate Swelling/Ed Unverified 05/01/20 08:43 [From Sudafed] yuniel Sulfa (Sulfonamide Allergy itch/rash Unverified 05/01/20 08:43 Antibiotics) erythromycin base AdvReac Intermediate GI upset Unverified 05/01/20 08:43 codeine AdvReac hyper Unverified 05/01/20 08:43 General Stated Complaint: Chest/Rib ADAM: 2 Review of Systems Narrative: Review of systems negative x7 aside from where indicated in HPI, specifically no chest pain, shortness of breath, vomiting, diarrhea PFSH Medical History Cerebral aneurysm without rupture 2018 patient had aneurysm clipped at [facility]. No sequela Per pt. stable, and did not require further F/U Claudication of left lower extremity Dense breasts 2019. Category C. Normal mammogram. 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 + HR HPV beginning 2003. 2013 Pap Nl/HPV Neg 2014 Pap Nl/HPV + 2016 Pap Nl/HPV + ( Neg HPV 16 & 18) 2017 Pap Nl/HPV Neg HTN (hypertension) Hx of carpal tunnel syndrome R side Hx of chronic cholecystitis Limited range of motion of shoulder R sided. PMR (polymyalgia rheumatica) Pulmonary emphysema Surgical History H/O: pt. soraida, pt. states one child was born vaginally Hx laparoscopic cholecystectomy (~12/30/19) S/P cataract surgery S/P tubal ligation Social History Smoking/Tobacco Use Status: Former Tobacco Use Quit Date: 03/26/07 Tobacco: How many years used: 10 Smoking risk assessment performed?: Yes Alcohol Intake: current Alcohol Intake frequency: holidays/special occasions only Alcohol type: wine and hard liquor Drug use: Never Substance use type: does not use Details: alcohol: t-7 Household members: none and other Details: Lives alone at [address]. 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 GC - Bhargav 24, Naeem 20, Pavithra 21. Female Reproductive History Menstrual Menopause type: natural History History 6 Para Hx # Term Pregnancies 5 Multiple births Hx # Pregnancies Ectopic pregnancies AB induced Hx Number of Living Children AB spontaneous Exam Const General: cooperative, healthy appearing, comfortable and no acute distress HENMT Mouth: oral mucosae normal Chest Chest: normal inspection of the chest Resp Effort & Inspection: normal respiratory effort Auscultation: clear to auscultation bilaterally Cardio Pulses: normal peripheral pulses GI Inspection: normal to inspection Auscultation: normal bowel sounds Other: Mild diffuse tenderness without rebound or guarding, no abdominal bruit or pulsatile mass, no CVA tenderness Skin General skin exam: no rashes or lesions noted Neuro General: patient alert and patient oriented x3 Cranial Nerves: CN's II-XI intact bilaterally Gait: normal gait Extrem General: normal to inspection Other: No calf swelling or tenderness Psych Appearance: grossly normal and well kempt Course Vital Signs Vital signs: Vital Signs Temperature 36.4 C L 05/01/20 08:30 Pulse 76 05/01/20 08:30 Respiratory Rate 16 05/01/20 08:30 Blood Pressure 150/86 H 05/01/20 08:30 Temperature 36.4 C L 05/01/20 08:30 Temperature Source Tympanic 05/01/20 08:30 Pulse 76 05/01/20 08:30 Respiratory Rate 16 05/01/20 08:30 Respiratory Effort Non-Labored 05/01/20 08:38 Respiratory Depth Normal 05/01/20 08:38 Respiratory Pattern Normal 05/01/20 08:38 Blood Pressure 150/86 H 05/01/20 08:30 Blood Pressure Position Sitting 05/01/20 08:30 Oxygen Delivery Method Room Air 05/01/20 08:30 Oxygen Flow Rate 0 05/01/20 08:30 Pain Level 4 05/01/20 08:38
[2020-05-01 09:09] LABS: Abs Immature Grans 0.01 10^3/uL (0.0-0.06); Absolute Basophil Count 0.01 10^3/uL (0.0-0.2); Absolute Eosinophil Count 0.01 10^3/uL (0.0-0.7); Absolute Lymphocyte Count 0.61 10^3/uL (1.2-3.4); Absolute Monocyte Count 0.41 10^3/uL (0.1-0.8); Absolute Neutrophil Count 3.31 10^3/uL (1.2-6.7); Basophils % 0.2; Eosinophils % 0.2; HGB 13.2 g/dL (11.2-15.7); Immature Grans % 0.2; MCV 93.9 fL (80-95); MPV 9.1 fL (8.0-11.0); Monocytes % 9.4; Nucleated RBC 0 %; Platelet Count 173 10^3/uL (130-400); RBC 4.26 10^6/uL (3.93-5.22); RDW 12.9 % (11.7-14.6); RDW-SD 44.5 fL; WBC 4.36 10^3/uL (4.4-10.8)
[2020-05-01 09:31] LABS: ALT 25 U/L (14-59); AST 30 U/L (15-37); Albumin 3.7 g/dL (3.4-5.0); Alkaline Phosphatase 75 U/L (46-116); Anion Gap 8.5 mmol/L (3-11); BUN 15 mg/dL (7-18); Bilirubin, Total 0.9 mg/dL (0.2-1.0); CO2 28.5 mmol/L (21.0-32.0); CREATININE 0.9 mg/dL (0.55-1.02); Chloride 102 mmol/L (98-107); Glucose 105 mg/dL (74-106); Lipase 109 U/L (73-393); Potassium 4.5 mmol/L (3.5-5.1); Sodium 139 mmol/L (136-145); Total Protein 7.2 g/dL (6.4-8.2); Troponin I < 0.05 ng/mL (<0.06)
[2020-05-01 09:47] LABS: Bilirubin Negative (Negative); Blood Negative (Negative); Clarity Clear (Clear); Glucose Negative (Negative); Ketones 15 mg/dL (Negative); Leukocyte Esterase Negative (Negative); Nitrite Negative (Negative); Specific Gravity >= 1.030 (1.005-1.025)
[2020-05-01] MEDS: Omnipaque 350 MG/ML 100 ML BTL IJ (10:00)
--- NOTE | 2020-05-01 10:10 | DI.VRAD_ITS ---
PROCEDURE INFORMATION: Exam: XR Chest, 1 View Exam date and time: 05/01/2020 9:57 AM Age: 80 years old Clinical indication: Chest wall pain TECHNIQUE: Imaging protocol: XR of the chest Views: 1 view. COMPARISON: CR CHEST 2 VIEWS PA,LAT 10/26/2017 12:40 PM FINDINGS: Lungs: Changes of emphysema. Patchy bilateral interstitial prominence suspicious for infiltrate. Pleural spaces: Unremarkable. No pleural effusion. No pneumothorax. Heart/Mediastinum: Unremarkable. No cardiomegaly. Vasculature: Aortic calcifications. Bones/joints: Unremarkable. IMPRESSION: Patchy bilateral interstitial prominence suspicious for infiltrate. Dictated and Authenticated by: Jessica Mcpherson MD. Ordering:SANDRA Masterson MD
--- NOTE | 2020-05-01 10:19 | DI.VRAD_ITS ---
PROCEDURE INFORMATION: Exam: CT Abdomen And Pelvis With Contrast Exam date and time: 05/01/2020 9:02 AM Age: 80 years old Clinical indication: Other: Pain, preasure; Prior surgery; Surgery date: 1-6 months; Surgery type: Cholecystectomy 12-30-19 TECHNIQUE: Imaging protocol: Computed tomography of the abdomen and pelvis with contrast. Contrast material: OMNIPAQUE 350; Contrast volume: 100 ml; Contrast route: IV; COMPARISON: CT ABDOMEN PELVIS W 12/17/2019 7:38 AM FINDINGS: Lungs: Nodular interstitial infiltrate in both lung bases. Changes of emphysema. Mediastinal space: Small esophageal hiatal hernia. Liver: Diffuse fatty infiltration of the liver. Slightly nodular contour of the liver suggesting cirrhotic change. Gallbladder and bile ducts: Cholecystectomy. Pancreas: Normal. No ductal dilation. Spleen: Mild splenomegaly. Adrenal glands: Normal. No mass. Kidneys and ureters: Normal. No hydronephrosis. Stomach and bowel: Moderate amount of stool in the colon. Appendix: No evidence of appendicitis. Intraperitoneal space: Unremarkable. No free air. No significant fluid collection. Vasculature: Diffuse vascular calcifications. No aneurysm identified Lymph nodes: Unremarkable. No enlarged lymph nodes. Urinary bladder: Unremarkable as visualized. Reproductive: Unremarkable as visualized. Bones/joints: Degenerative arthritis in the spine and pelvis. The bones are demineralized. Soft tissues: Tiny fat containing supraumbilical abdominal wall hernia. IMPRESSION: 1. Nodular interstitial infiltrate in both lung bases. 2. Fatty liver with a slightly nodular configuration and splenomegaly. 3. Esophageal hiatal hernia. 4. Cholecystectomy. Dictated and Authenticated by: Jessica Mcpherson MD. Ordering:SANDRA Masterson MD
--- NOTE | 2020-05-01 11:26 | NUR.NOTE ---
Nursing Note: Referral faxed to PCP for follow up within 2-3 days. Pneumonia, r/o COVID w/spec done and sent out. Aditi Burciaga
[2020-05-03 16:23] LABS: COVID-19 RT-PCR UVMMC Result Negative (Negative)
--- NOTE | 2020-05-04 14:27 | NUR.NOTE ---
Nursing Note: Received call from patient inquiring about her covid test results- pt results were called to her by her PCP but had not heard from ED where testing was performed. Pt test results were confirmed with her, and per her request will forward her name and phone number to the office manager to investigate why results did not print to ED.
== END 2020-05-01 11:31 | disposition home or self-care (01) ==
PROVIDERS: Emergency Provider Physician Assistant; PCP Physician Assistant Medical
DX: J18.8 Other pneumonia, unspecified organism (principal); D72.819 Decreased white blood cell count, unspecified; D72.810 Lymphocytopenia; Z03.818 Encounter for observation for suspected exposure to other biological agents ruled out
CPT/HCPCS: 80053; 83690; 93005; 99285; U0003; 71045; 74177; 81003; 84484; 85025; 93010; 99284; J3490

== ENCOUNTER 2020-05-12 18:55 | Outpatient (CLI) | payer MEDICARE, MEDICAID, SELFPAY ==
--- NOTE | 2020-05-12 | DI.RAD_ITS ---
EXAM: XR CHEST 2V PA LATERAL CLINICAL HISTORY: PNEUMONIA J18.9, NEG COVID. TECHNIQUE: 2D digital imaging was performed. COMPARISON: CR,XR XR PORTABLE CHEST AP from 05/01/2020 FINDINGS: Heart size is upper normal. The mediastinum is not widened. No confluent infiltrates but there is very mild reticulonodular density in the right lung base, possi milena significant. No pleural effusions. No pulmonary edema. No Idalia B lines IMPRESSION: Very mild increased reticulonodular markings in the right lung base. No pleural effusions. No pulmo nary edema. DATA REPOSITORY: RADIATION DOSE DELIVERED:
== END 2020-05-12 18:56 ==
LOC: DI 05-13 18:57
PROVIDERS: PCP Physician Assistant Medical; Visit Provider Physician Assistant Medical
DX: J18.9 Pneumonia, unspecified organism (principal); R91.1 Solitary pulmonary nodule
CPT/HCPCS: 71046

== ENCOUNTER 2021-02-10 01:13 | Outpatient (CLI) | payer MEDICARE, MEDICAID, SELFPAY ==
--- NOTE | 2021-02-10 11:30 | DI.MAMMO_ITS ---
Exam(s) MAMMO SCREENING EXAM: MAMMO SCREENING CLINICAL HISTORY: screening. TECHNIQUE: Bilateral full field digital CC and MLO mammographic images were obtained with 3D tomosyn thesis and utilizing computer aided detection (CAD). COMPARISON: Prior mammograms dating back to 2011, the most recent being December 2019. FINDINGS: Fibroglandular tissue is again noted be moderately dense, this decreasing the sensitivity of the mamm ogram for finding in underlying lesions. There are no new spiculated masses nor malignant appearing microcalcification groups. Asymmetric density posteriorly in the left breast on the CC view is unchanged from prior studies. There is no significant architectural distortion nor skin thickening-retraction. IMPRESSION: Dense bilateral fibroglandular tissue. No obvious radiographic evidence of malignancy nor significan t change compared to prior studies listed above BI-RADS Category 2 - Benign Findings Breast Density - Category C - Heterogeneously dense Breast density Category C or D implies that the patient has dense breast tissue. Dense breast tissue can make it harder to find cancer on a mammogram. Dense breast tissue is also associated with an incr eased risk of breast cancer. This information about the result of the mammogram report was provided to the patient to raise their awareness. Use this report when you speak with the patient about their risks for breast cancer, which includes their family history. At that time, you may recommend additional screening tests (Ultrasoun d or MRI) as these tests may add significant information. A negative radiographic report should not delay biopsy if a dominant or clinically suspicious mass is present. Up to ten percent of cancers are not identified on mammography. A negative report may reinforce clinical impression. Adenosis and dense breasts may obscure an underlying neoplasm. False positive reports average 6 to 10%. Patient will receive a letter notifying them of these results.
== END 2021-02-10 01:33 ==
PROVIDERS: PCP Physician Assistant Medical; Visit Provider Obstetrics & Gynecology Gynecology
DX: Z12.31 Encounter for screening mammogram for malignant neoplasm of breast (principal)
CPT/HCPCS: 77063; 77067

== ENCOUNTER 2021-04-18 15:01 | Outpatient (REF) | payer MEDICARE, MEDICAID, SELFPAY ==
[2021-04-18 20:20] LABS: Abs Immature Grans 0.01 10^3/uL (0.0-0.06); Absolute Basophil Count 0.01 10^3/uL (0.0-0.2); Absolute Eosinophil Count 0.04 10^3/uL (0.0-0.7); Absolute Lymphocyte Count 1.07 10^3/uL (1.2-3.4); Absolute Monocyte Count 0.46 10^3/uL (0.1-0.8); Absolute Neutrophil Count 2.78 10^3/uL (1.2-6.7); Basophils % 0.2; Eosinophils % 0.9; HCT 44.6 % (36.0-46.0); HGB 13.7 g/dL (11.2-15.7); Immature Grans % 0.2; Lymphocytes % 24.5; MCH 30.1 pg (27.0-33.0); MCHC 30.7 % (32.0-36.0); MPV 9.5 fL (8.0-11.0); Monocytes % 10.5; Neutrophils % 63.7; Nucleated RBC 0 %; Platelet Count 192 10^3/uL (130-400); RBC 4.55 10^6/uL (3.93-5.22); RDW 12.9 % (11.7-14.6); RDW-SD 46.7 fL; WBC 4.37 10^3/uL (4.4-10.8)
[2021-04-18 20:30] LABS: Prothrombin Time 10.4 sec (9.3-11.0)
[2021-04-18 20:35] LABS: Hemoglobin A1C 5.6 % (<5.7)
[2021-04-18 20:39] LABS: Anion Gap 6.5 mmol/L (3-11); BUN 19 mg/dL (7-18); CO2 31.5 mmol/L (21.0-32.0); Calcium 9.4 mg/dL (8.5-10.1); Chloride 101 mmol/L (98-107); Estimated GFR 53.62 (mL/min/1.73m2); Glucose 87 mg/dL (74-106); NT-proBNP 1584 pg/mL (<300); Potassium 4.5 mmol/L (3.5-5.1); Sodium 139 mmol/L (136-145); TSH (W/Ref FT4) 1.15 uIU/mL (0.36-3.74)
[2021-04-18 20:50] LABS: Calculated LDL 137 mg/dL (<100); Cholesterol 230 mg/dL (<200); HDL Cholesterol 78 mg/dL (40-60); Triglyceride 76 mg/dL (<150)
== END 2021-04-18 15:02 | disposition home or self-care (01) ==
LOC: NCHCN 15:01
PROVIDERS: PCP Physician Assistant Medical; Visit Provider Physician Assistant Medical
DX: R00.0 Tachycardia, unspecified (principal); I48.91 Unspecified atrial fibrillation; J44.9 Chronic obstructive pulmonary disease, unspecified
CPT/HCPCS: 80048; 80061; 83036; 83880; 84443; 85025; 85610; 85730

== ENCOUNTER 2021-05-03 01:10 | Outpatient (CLI) | payer MEDICARE, MEDICAID, SELFPAY ==
--- NOTE | 2021-05-03 13:00 | DI.US_ITS ---
APPROVED REPORT EXAM: Comprehensive 2D, Doppler, and color-flow Echocardiogram Patient Location: Out-Patient [facility] Operator: Irene Licea RDCS (AE) Indications: Atrial Fibrillation Other Information Study Quality: Adequate Conclusion Normal left ventricular wall thickness and chamber size. Estimated ejection fraction is approximatel y 55%. Wall motion is normal Normal right ventricular size and systolic function Both atria are moderately to severely dilated Mildly sclerotic trileaflet aortic valve without stenosis or regurgitation Normal mitral valve with moderate regurgitation Normal tricuspid valve with moderate regurgitation. Estimated right ventricular systolic pressure is 34 mmHg Atrial fibrillation was present throughout with an average heart rate of 125 Wall motion Left Ventricle The left ventricle is normal size. The left ventricular systolic function is normal. The left ventric ular ejection fraction is within the normal range. There is normal left ventricular wall thickness. T here is no ventricular septal defect visualized. LVEF is 55%. Right Ventricle The right ventricle is normal size. The right ventricular systolic function is normal. The RVSP is 34 .1 mmHg. Atria Left atrium is moderate to severely dilated. Right atrium is moderate to severely dilated. The intera trial septum is intact with no evidence for an atrial septal defect. Aortic Valve The aortic valve is mildly sclerotic Aortic valve is trileaflet. There is no aortic valvular stenosis . No aortic regurgitation is present. Mitral Valve The mitral valve is normal in structure. No evidence of mitral valve stenosis. Moderate mitral regurg itation. Tricuspid Valve The tricuspid valve is normal in structure. There is no tricuspid valve stenosis. Moderate tricuspid regurgitation. Pulmonic Valve The pulmonary valve is normal in structure. There is no pulmonic valvular stenosis. Trace pulmonic re gurgitation. Great Vessels The aortic root is normal in size. The ascending aorta is normal in size. Aortic arch is not well vis ualized. IVC is normal in size and collapses >50% with inspiration. Pericardium There is no pericardial effusion. 2D Dimensions IVSD d PLAX 1.00 cm F: 0.6-1.0 LV Vol A2C d MOD 77.6 mL LVPW d PLAX 1.03 cm F: 0.6 - 1.0 LV Vol A4C d MOD 70.1 mL LVID d PLAX 4.07 cm F: 3.8 - 5.2 LA vol/ BSA A2C s A-L 41.2 mL/m2 LVDs 2.95 cm F: 2.2 - 3.5 LA vol/ BSA A4C s A-L 37.8 mL/m2 Ao Root d 2.80 cm F: 2.7 - 3.3 LA Vol/ BSA Biplane s A-L 40.1 mL/m2 RA Area A4C 18.58 cm2 LA Area A4C s MOD 22.62 cm2 RA Vol/ BSA A4C s A-L 30.9 mL/m2 LA Area A2C s MOD 23.24 cm2 Ao Asc Diam d 3.21 cm F: 2.3 - 3.1 LV EF A4C MOD 53.8 % LV EF Teichholz 53.2 % LV EF A2C MOD 51.0 % LVEF (Craft's) 50.57 % F: 54 - 74 LV EF Biplane MOD 50.6 % LV Volume 57.35 mL F: 46 - 106 SV 37.62 mL LV Volume Index 31.16 mL/m2 F: 29 - 61 SV Index 20.38 mL/m2 LV Vol Biplane MOD 74.4 mL FS 27.05 % M-Mode TAPSE 1.21 cm (M/F) >1.7 LV Diastology MV E' medial 0.075 (>0.07 m/s) MV E Vmax 1.02 (0.4-1.3 m/s) LV E/e MED 13.55 (<14) MV E' lateral 0.123 (>0.1 m/s) LV E/e LAT 8.30 (<14) MV E/E' medial 13.59 MV E/E' lateral 8.30 Aortic Valve LVOT Area 3.02 cm2 AoV Area Vmax 2.22 cm2 LVOT Vmax 0.73 m/s AoV Area/ BSA (Vmax) 1.20 cm2/m2 LVOT Mean Anibal. 0.48 m/s ALBERTO Mean Anibal. 2.07 cm2 LVOT Peak Grad 2.1 mmHg ALBERTO Mean Anibal. Index 1.12 cm2/m2 LVOT Mean Grad 1.1 mmHg LVOT VTI 0.130 m LVOT Diam s 1.95 cm AoV Vmax 1.00 m/s Velocity Ratio 0.73 AoV Mean Anibal. 0.71 m/s AoV Peak Grad 4.0 mmHg LVOT SV 39.35 mL AoV Mean Grad 2.2 mmHg AoV VTI 0.171 m AoV Area VTI 2.30 cm2 AoV Area/ BSA (VTI) 1.25 cm/m2 Mitral Valve MV DT 162 (160-240 msec) MR Vmax 5.74 m/s MV PHT 47 msec MR VTI 1.648 m MV Area PHT 4.68 cm2 MR Peak Grad 132.0 mmHg MV VTI 0.193 m MR Mean Grad 85.0 mmHg MV VTI Annulus 0.194 m MR PISA Radius 0.44 cm MV Area VTI 2.05 (4.0-6.0 cm2) MR EROA 0.07 cm2 MR Aliasing Velocity 0.35 m/s MR PISA 1.23 cm2 Pulmonary Valve PV Vmax 0.64 (0.5-1.5 m/s) RVOT Peak Gr. 0.95 mmHg PV Peak Grad 1.7 mmHg RVOT Mean Gr. 0.45 mmHg PV Mean Grad 0.9 mmHg RVOT VTI 0.087 m PV VTI 0.107 m RVOT Vmax 0.49 m/s Tricuspid Valve TR Peak Grad 31.0 mmHg TR Vmax 2.79 m/s RA Pressure 3.00 mmHg RVSP (TR) 34.1 mmHg
== END 2021-05-03 01:30 ==
PROVIDERS: PCP Physician Assistant Medical; Visit Provider Physician Assistant Medical
DX: I48.91 Unspecified atrial fibrillation (principal); R94.39 Abnormal result of other cardiovascular function study
CPT/HCPCS: 93306

== ENCOUNTER 2021-06-06 09:00 | Outpatient (CLI) | payer MEDICARE, MEDICAID, SELFPAY ==
--- NOTE | 2021-06-06 09:00 | RT.EKG_ITS ---
APPROVED REPORT Exam: Resting ECG Reason for Exam: afib Patient Location: O HR:105 bpm ECG Measurements Heart Rate 105 AXIS AR [id number] P [id number] QRSd 133 QRS 77 QT 366 T -20 QTc 484 Conclusion Atrial fibrillation...V-rate 77-132, irreg A-activity Right bundle branch block...QRSd>120, terminal axis(90,270)
== END 2021-06-06 09:01 | disposition home or self-care (01) ==
LOC: DI.CARD 09:01
PROVIDERS: PCP Physician Assistant Medical; Visit Provider Internal Medicine Cardiovascular Disease
DX: I48.91 Unspecified atrial fibrillation (principal); R06.00 Dyspnea, unspecified
CPT/HCPCS: 93010

== ENCOUNTER → 2021-06-06 12:47 | Outpatient (BNVA) | payer MEDICARE, MEDICAID, SELFPAY | PROVIDERS: PCP Physician Assistant Medical; Referring Provider Physician Assistant Medical; Visit Provider Internal Medicine Cardiovascular Disease | DX: I48.20 Chronic atrial fibrillation, unspecified (principal); I10 Essential (primary) hypertension; R06.09 Other forms of dyspnea; R73.03 Prediabetes; J44.9 Chronic obstructive pulmonary disease, unspecified | CPT/HCPCS: 93005; 99203; 99214 ==

== ENCOUNTER → 2021-07-04 13:22 | Outpatient (BNVA) | payer MEDICARE, MEDICAID, SELFPAY | PROVIDERS: PCP Physician Assistant Medical; Referring Provider Physician Assistant Medical; Visit Provider Internal Medicine Cardiovascular Disease | DX: I48.20 Chronic atrial fibrillation, unspecified (principal) | CPT/HCPCS: 99214; 99213 ==

== ENCOUNTER 2021-07-08 19:01 | Emergency (ER) | payer MEDICARE, MEDICAID, SELFPAY ==
[2021-07-08] VITALS (26 sets, daily range): BP systolic 111–135; BP diastolic 41–105; PULSE 79–119; RESP 16–27; TEMP 36.6; O2SAT 96–99
--- NOTE | 2021-07-08 19:00 | RT.EKG_ITS ---
APPROVED REPORT Exam: Resting ECG Reason for Exam: DYSPNEA Patient Location: E HR:109 bpm ECG Measurements Heart Rate 109 AXIS AK [id number] P [id number] QRSd 129 QRS 72 QT 375 T -15 QTc 505 Conclusion Atrial fibrillation...V-rate 79-140, irreg A-activity Right bundle branch block...QRSd>120, terminal axis(90,270)
--- NOTE | 2021-07-08 19:30 | DI.RAD_ITS ---
Exam(s) XR PORTABLE CHEST AP EXAM: XR PORTABLE CHEST AP CLINICAL HISTORY: shortness of breath, crackles, afib. TECHNIQUE: 2D digital imaging was performed. COMPARISON: CR,XR XR PORTABLE CHEST AP from 05/01/2020 CR XR CHEST 2V PA LATERAL from 05/12/2020 FINDINGS: Single AP portable view. Mild cardiomegaly. Mediastinum not widened. There is COPD changes bilaterally. There is interstitial prominence in both lung bauer as well as s carring bilaterally. No obvious pleural effusions. No pulmonary edema. IMPRESSION: Increasing interstitial disease and scarring in both lung bauer, superimposed upon COPD findings. DATA REPOSITORY: RADIATION DOSE DELIVERED: All CT scans at this facility use at least one of these dose optimization techniques: automated exposure control; mA and/or kV adjustment per patient size (includes targeted e xams where dose is matched to clinical indication); or iterative reconstruction.
[2021-07-08 20:03] LABS: Source Nasal/Nares
[2021-07-08 20:07] LABS: Abs Immature Grans 0.01 10^3/uL (0.0-0.06); Absolute Basophil Count 0.02 10^3/uL (0.0-0.2); Absolute Eosinophil Count 0.07 10^3/uL (0.0-0.7); Absolute Lymphocyte Count 0.93 10^3/uL (1.2-3.4); Absolute Monocyte Count 0.51 10^3/uL (0.1-0.8); Absolute Neutrophil Count 2.43 10^3/uL (1.2-6.7); Basophils % 0.5; Eosinophils % 1.8; HCT 40.4 % (36.0-46.0); HGB 12.7 g/dL (11.2-15.7); Immature Grans % 0.3; Lymphocytes % 23.4; MCH 30.3 pg (27.0-33.0); MCHC 31.4 % (32.0-36.0); MCV 96.4 fL (80-95); MPV 9.2 fL (8.0-11.0); Monocytes % 12.8; Neutrophils % 61.2; Platelet Count 162 10^3/uL (130-400); RBC 4.19 10^6/uL (3.93-5.22); RDW 13.4 % (11.7-14.6); RDW-SD 47.1 fL; WBC 3.97 10^3/uL (4.4-10.8)
[2021-07-08] MEDS: dilTIAZem 25 MG/5 ML VIAL 10 MG IVP (20:10)
--- NOTE | 2021-07-08 20:25 | ED.GENADUL_ITS ---
Discharge Plan Disposition Patient Disposition: OTHER Condition: Stable Discharge Details Clinical Impression: Atrial fibrillation, chronic, CHF (congestive heart failure) Primary Care Provider: Raquel Martin ED Provider: Aleja Soni Home Meds and New Rx's Prescriptions: Continued acetaminophen [Tylenol] 325 mg tablet 325 mg PO Q6H PRN0RF Eliquis 5 mg tablet 5 mg PO BID Qty: 60 7RF metoprolol tartrate 25 mg tablet 25 mg PO BID Qty: 180 3RF Spiriva with HandiHaler 18 MCG capsule, w/inhalation device 18 mcg Inhalation DAILY 0RF lisinopril 2.5 mg tablet 5 mg PO DAILY 0RF furosemide 20 mg tablet 20 mg PO DAILY PRN0RF ondansetron 4 mg tablet,disintegrating 4 mg PO Q6H 0RF Rx Instructions: df mecobalamin (vitamin B12) 10,000 mcg recon soln 1,000 mcg subcut [id number] 0RF albuterol sulfate [Ventolin HFA] 90 mcg/actuation HFA aerosol inhaler 2 puff inhalation Q6H PRN0RF triamcinolone acetonide 0.1 % cream 1 applic topical BID 0RF Discharge Data Discharge Date/Time-TO BE ENTERED AT DEPARTURE: 07/08/21 22:56 Medical Decision Making Patient is in atrial fibrillation with CHF Patient is symptomatic, BNP of 2500 with evidence of mild pulmonary edema on chest x-ray Covid negative Troponin negative Given a dose of 10 mg of diltiazem secondary to bradycardia of 1 10-1 20 and CHF and patient has been rate controlled in the 80s in the emergency department She also received an additional 12.5 mg of metoprolol tartrate in addition to the 50 mg tach prior to arrival She received 20 mg of Lasix as she has not been taking Lasix at home Her electrolyte stable Unfortunately secondary capacity we are unable to admit this patient to her was contacted and Dr. Eubanks, hospitalist is willing to accept this patient She did have a 4 beat episode of what appeared to be ventricular tachycardia on the monitor, she will continue to be monitored in the emergency department She was asymptomatic with this event her blood pressure and vitals remained stable, she was alert and oriented She is full CODE STATUS Pending transportation at this time Medical Records Medical records reviewed: Yes I reviewed the patient's medical records. HPI General Date/Time Provider Initiated Documentation: 07/08/21 19:18 . HPI Narrative: This 81-year-old female presents with report of dyspnea on exertion for the past 2 days that is worsening. Is not currently taking Lasix. Denies history of CHF. Was diagnosed with CHF approximately 2 months ago. Has been taking Eliquis for the past few months and did take her dose this evening. Has also taken her metoprolol this evening. States she had an echocardiogram in April that was normal . Denies any associated chest discomfort. Denies any weight gain or peripheral edema. Denies fevers, chest discomfort, Covid exposure. Denies hemoptysis. Denies prior history of PE or DVT. Related Data Home Medications Medication Instructions Recorded Confirmed tiotropium bromide 18 mcg capsule 18 mcg INHALATION DAILY tab-cap 01/31/17 07/08/21 with inhalation device (Spiriva with HandiHaler) acetaminophen 325 mg tablet 325 mg PO Q6H PRN tab 01/13/20 07/08/21 (Tylenol) albuterol sulfate 90 mcg/actuation 2 puff INHALATION Q6H PRN 05/17/21 07/08/21 aerosol inhaler (Ventolin HFA) furosemide 20 mg tablet 20 mg PO DAILY PRN 05/17/21 07/08/21 lisinopril 2.5 mg tablet 5 mg PO DAILY tab 05/17/21 07/08/21 mecobalamin (vitamin B12) 10,000 1,000 mcg SUBCUT [id number] ea 05/17/21 07/08/21 mcg solution for injection ondansetron 4 mg disintegrating 4 mg PO Q6H 05/17/21 07/08/21 tablet triamcinolone acetonide 0.1 % 1 applic TOPICAL BID 05/17/21 07/08/21 topical cream apixaban 5 mg tablet (Eliquis) 5 mg PO BID #60 tab 06/06/21 07/08/21 metoprolol tartrate 25 mg tablet 25 mg PO BID #180 tab 06/07/21 07/08/21 Previous Rx's Medication Instructions Recorded apixaban 5 mg tablet (Eliquis) 5 mg PO BID #60 tab 06/06/21 metoprolol tartrate 25 mg tablet 25 mg PO BID #180 tab 06/07/21 Allergies Allergy/AdvReac Type Severity Reaction Status Date / Time pseudoephedrine HCl Allergy Intermediate Swelling/Ed Verified 07/08/21 19:36 [From Sudafed] yuniel Sulfa (Sulfonamide Allergy itch/rash Verified 07/08/21 19:36 Antibiotics) erythromycin base AdvReac Intermediate GI upset Verified 07/08/21 19:36 codeine AdvReac hyper Verified 07/08/21 19:36 General Stated Complaint: SOB ADAM: 3 Review of Systems All systems reviewed & are unremarkable except as noted in HPI and below PFSH All Active Problems (Updated 07/09/21 @ 17:56 by GALILEO Moeller) CHF (congestive heart failure) (Chronic) Dyspnea (Acute) Tachycardia (Acute) Pre-diabetes (Acute) PVD (peripheral vascular disease) (Chronic) Lumbar radiculopathy (Acute) Anxiety (Chronic) COPD (chronic obstructive pulmonary disease) (Chronic) Atrial fibrillation, chronic (Acute) COVID-19 (Acute) HTN (hypertension) (Chronic) Dense breasts (Chronic) 2019. Category C. Normal mammogram. Claudication of left lower extremity (Chronic) Pulmonary emphysema (Chronic) PMR (polymyalgia rheumatica) (Chronic) Medical History Dysuria (~10/2018) Hx of carpal tunnel syndrome R side Hx of chronic cholecystitis Limited range of motion of shoulder R sided. Surgical History H/O: pt. denies, pt. states one child was born vaginally Hx laparoscopic cholecystectomy (~12/30/19) S/P cataract surgery S/P tubal ligation Social History Smoking/Tobacco Use Status: Former Tobacco Use Quit Date: 03/26/07 Tobacco: How many years used: 10 Smoking risk assessment performed?: Yes Alcohol Intake: current Alcohol Intake frequency: holidays/special occasions only Alcohol type: wine and hard liquor Drug use: Never Substance use type: does not use Details: alcohol: t-7 Household members: none and other Details: Lives alone at [facility]. 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 SERINA - Bhargav 24, Naeem 20, Pavithra 21. Female Reproductive History Menstrual Menopause type: natural History History 6 Para Hx # Term Pregnancies 5 Multiple births Hx # Pregnancies Ectopic pregnancies AB induced Hx Number of Living Children AB spontaneous Exam Const General: cooperative, comfortable and no acute distress Eyes Pupils: PERRL Resp Effort & Inspection: normal respiratory effort Other: Crackles at bases Cardio Rate: regular rate Rhythm: regular rhythm GI Inspection: normal to inspection Skin General skin exam: no rashes or lesions noted Neuro General: patient alert and patient oriented x3 Extrem Other: 1+ edema, distal pulses intact, non-tender Course Vital Signs Vital signs: Vital Signs Temperature 36.6 C 07/08/21 19:22 Pulse 105 H 07/08/21 19:22 Respiratory Rate 16 07/08/21 19:22 Blood Pressure 131/73 07/08/21 19:22 Pulse Oximetry 98 07/08/21 19:22 Temperature 36.6 C 07/08/21 19:22 Temperature Source Skin 07/08/21 19:22 Pulse 104 H 07/08/21 20:09 Pulse 107 H 07/08/21 20:10 Respiratory Rate 27 H 07/08/21 20:10 Respiratory Effort 07/08/21 19:40 Respiratory Depth Normal 07/08/21 19:40 Respiratory Pattern Normal 07/08/21 19:40 Blood Pressure 122/70 07/08/21 20:09 Blood Pressure Mean 82 07/08/21 20:09 Blood Pressure Position Sitting 07/08/21 19:22 Pulse Oximetry 98 07/08/21 20:10 Pain Level 0 07/08/21 19:22 Lab/Test Results Lab/Test Results: Laboratory Tests Range/Units 07/08/21 07/08/21 19:50 19:50 WBC (4.4-10.8) 10^3/uL 3.97 L RBC (3.93-5.22) 10^6/uL 4.19 Hgb (11.2-15.7) g/dL 12.7 Hct (36.0-46.0) % 40.4 MCV (80-95) fL 96.4 H MCH (27.0-33.0) pg 30.3 MCHC (32.0-36.0) % 31.4 L RDW (11.7-14.6) % 13.4 Plt Count (130-400) 10^3/uL 162 MPV (8.0-11.0) fL 9.2 Immature Gran % 0.3 Neutrophils % 61.2 Lymphocytes % 23.4 Monocytes % 12.8 Eosinophils % 1.8 Basophils % 0.5 Nucleated RBC % (0.0-0.3) % 0.0 Absolute Neutrophils (1.2-6.7) 10^3/uL 2.43 Absolute Lymphocytes (1.2-3.4) 10^3/uL 0.93 L Absolute Monocytes (0.1-0.8) 10^3/uL 0.51 Absolute Eosinophils (0.0-0.7) 10^3/uL 0.07 Absolute Basophils (0.0-0.2) 10^3/uL 0.02 COVID-19 Source Nasal/Nares Critical Care Time Critical Care Time Critical Care Time: Yes Total Critical Care Time: 45 Attestation: telemetry monitoring, iv diltiazem, iv lasix, diagnostic blood work, and transfer for inpatient bed placement
[2021-07-08] MEDS: Metoprolol 12.5 MG TAB PO (20:28)
[2021-07-08 20:30] LABS: ALT 40 U/L (14-59); AST 37 U/L (15-37); Albumin 3.8 g/dL (3.4-5.0); Alkaline Phosphatase 74 U/L (46-116); Anion Gap 7.2 mmol/L (3-11); BUN 18 mg/dL (7-18); Bilirubin, Total 0.5 mg/dL (0.2-1.0); CO2 27.8 mmol/L (21.0-32.0); CREATININE 1.1 mg/dL (0.55-1.02); Calcium 9.2 mg/dL (8.5-10.1); Chloride 107 mmol/L (98-107); Estimated GFR 47.91 (mL/min/1.73m2); Glucose 106 mg/dL (74-106); Magnesium 2.1 mg/dL (1.8-2.4); NT-proBNP 2554 pg/mL (<300); Potassium 4.4 mmol/L (3.5-5.1); Sodium 142 mmol/L (136-145); TSH (W/Ref FT4) 3.05 uIU/mL (0.36-3.74); Total Protein 6.9 g/dL (6.4-8.2); Troponin I < 50 ng/L (<or=60)
[2021-07-08 20:42] LABS: COVID-19 PCR Negative (Negative)
--- NOTE | 2021-07-08 20:43 | DI.VRAD_ITS ---
PROCEDURE INFORMATION: Exam: XR Chest Exam date and time: 07/08/2021 7:55 PM Age: 81 years old Clinical indication: Shortness of breath; Additional info: SOB TECHNIQUE: Imaging protocol: XR of the chest. Views: 1 view. COMPARISON: CR XR CHEST 2V PA LATERAL 05/12/2020 2:41 PM FINDINGS: Tubes, catheters and devices: Monitoring wires noted. Lungs: Coarse interstitial prominence noted throughout both lungs. Background emphysematous changes noted. Patchy airspace opacity present in the lung bases. Pleural spaces: Mild blunting noted in both costophrenic angles. No pneumothorax. Heart/Mediastinum: Mild cardiomegaly. Bones/joints: Unremarkable. IMPRESSION: 1. Background emphysema. 2. Overlying edema and/or pneumonia. 3. Trace bilateral pleural effusions. Dictated and Authenticated by: Pedro Nunez MD. Ordering:SANDRA Masterson MD
[2021-07-08] MEDS: Furosemide 20 MG/2 ML VIAL IVP (20:49)
--- NOTE | 2021-07-08 21:09 | NUR.NOTE ---
This nurse was admininstering 20mg/2ml Lasix IV (over 2minutes) to patient. At end of administration, monitor read V-TACH for 6 beats and then returned to baseline rhythm (AFIB) . At that time, patient was talking to nurse and appeared unchanged. This nurse asked patient if she was symptomatic; patient denied any symptoms. PA aware. Defibrillator pads placed. VSS. Will continue to monitor patient. [facility]
== END 2021-07-08 22:56 | disposition other institution (70) ==
PROVIDERS: Emergency Provider Physician Assistant; PCP Physician Assistant Medical
DX: I48.20 Chronic atrial fibrillation, unspecified (principal); I11.0 Hypertensive heart disease with heart failure; I50.9 Heart failure, unspecified; R06.02 Shortness of breath; R06.00 Dyspnea, unspecified; Z20.822 Contact with and (suspected) exposure to COVID-19
CPT/HCPCS: 51702; 80053; 87635; 93005; 96374; 96375; 99291; 71045; 83735; 83880; 84443; 84484; 85025; 93010; J1941; J3490

== ENCOUNTER 2021-07-18 14:15 | Outpatient (REF) | payer MEDICARE, MEDICAID, SELFPAY ==
[2021-07-18 15:38] LABS: ALT 31 U/L (14-59); AST 41 U/L (15-37); Albumin 4.1 g/dL (3.4-5.0); Alkaline Phosphatase 74 U/L (46-116); Anion Gap 6.9 mmol/L (3-11); BUN 20 mg/dL (7-18); Bilirubin, Total 0.7 mg/dL (0.2-1.0); CO2 30.1 mmol/L (21.0-32.0); Calcium 9.4 mg/dL (8.5-10.1); Chloride 103 mmol/L (98-107); Digoxin 1.29 ng/mL (0.90-2.00); Estimated GFR 53.48 (mL/min/1.73m2); Glucose 85 mg/dL (74-106); Potassium 4.9 mmol/L (3.5-5.1); Sodium 140 mmol/L (136-145); Total Protein 7.2 g/dL (6.4-8.2)
== END 2021-07-18 14:16 | disposition home or self-care (01) ==
LOC: NCHCN 14:15
PROVIDERS: PCP Physician Assistant Medical; Visit Provider Physician Assistant Medical
DX: I50.9 Heart failure, unspecified (principal); I48.91 Unspecified atrial fibrillation; Z51.81 Encounter for therapeutic drug level monitoring
CPT/HCPCS: 80053; 80162

== ENCOUNTER 2021-07-19 08:23 | Outpatient (CLI) | payer MEDICARE, MEDICAID, SELFPAY ==
--- NOTE | 2021-07-19 08:15 | RT.EKG_ITS ---
APPROVED REPORT Exam: Resting ECG Reason for Exam: tachy Patient Location: O HR:76 bpm ECG Measurements Heart Rate 76 AXIS FL [id number] P [id number] QRSd 127 QRS 77 QT 382 T -52 QTc 430 Conclusion Atrial fibrillation...V-rate 67- 83, irreg A-activity Right bundle branch block...QRSd>120, terminal axis(90,270) Baseline wander in lead(s) V2,V5
== END 2021-07-19 08:24 | disposition home or self-care (01) ==
LOC: DI.CARD 08:24
PROVIDERS: PCP Physician Assistant Medical; Visit Provider Internal Medicine Cardiovascular Disease
DX: R00.0 Tachycardia, unspecified (principal)
CPT/HCPCS: 93010

== ENCOUNTER → 2021-07-19 09:49 | Outpatient (BNVA) | payer MEDICARE, MEDICAID, SELFPAY | PROVIDERS: PCP Physician Assistant Medical; Referring Provider Physician Assistant Medical; Visit Provider Internal Medicine Cardiovascular Disease | DX: I50.9 Heart failure, unspecified (principal); I48.20 Chronic atrial fibrillation, unspecified; R00.0 Tachycardia, unspecified | CPT/HCPCS: 93005; 99214; 99213 ==

== ENCOUNTER 2021-08-29 15:02 | Outpatient (REF) | payer MEDICARE, MEDICAID, SELFPAY ==
[2021-08-29 16:16] LABS: ALT 28 U/L (14-59); AST 33 U/L (15-37); Albumin 3.9 g/dL (3.4-5.0); Alkaline Phosphatase 62 U/L (46-116); Anion Gap 9.3 mmol/L (3-11); BUN 18 mg/dL (7-18); Bilirubin, Total 0.6 mg/dL (0.2-1.0); CO2 29.7 mmol/L (21.0-32.0); CREATININE 1.1 mg/dL (0.55-1.02); Calcium 9.1 mg/dL (8.5-10.1); Chloride 102 mmol/L (98-107); Digoxin 1.96 ng/mL (0.90-2.00); Estimated GFR 47.91 (mL/min/1.73m2); Glucose 107 mg/dL (74-106); Potassium 4.7 mmol/L (3.5-5.1); Sodium 141 mmol/L (136-145); Total Protein 6.8 g/dL (6.4-8.2)
== END 2021-08-29 15:03 | disposition home or self-care (01) ==
LOC: NCHCN 15:02
PROVIDERS: PCP Physician Assistant Medical; Visit Provider Physician Assistant Medical
DX: I50.9 Heart failure, unspecified (principal); Z51.81 Encounter for therapeutic drug level monitoring
CPT/HCPCS: 80053; 80162

== ENCOUNTER → 2021-08-30 11:29 | Outpatient (BNVA) | payer MEDICARE, MEDICAID, SELFPAY | PROVIDERS: PCP Physician Assistant Medical; Referring Provider Physician Assistant Medical; Visit Provider Internal Medicine Cardiovascular Disease | DX: I48.20 Chronic atrial fibrillation, unspecified (principal); I10 Essential (primary) hypertension; I50.30 Unspecified diastolic (congestive) heart failure; R00.0 Tachycardia, unspecified | CPT/HCPCS: 99214; 99213 ==

== ENCOUNTER 2021-09-13 19:27 | Emergency (ER) | payer MEDICARE, MEDICAID, SELFPAY ==
[2021-09-13 19:32] VITALS: BP 125/70; PULSE 87; RESP 18; TEMP 36.3; O2SAT 96
--- NOTE | 2021-09-13 19:55 | ED.GENADUL_ITS ---
Discharge Plan Disposition Patient Disposition: HOME Condition: Stable Discharge Details Clinical Impression: Constipation Primary Care Provider: Raquel Martin ED Provider: Meño Mustafa Home Meds and New Rx's Prescriptions: Continued acetaminophen [Tylenol] 325 mg tablet 325 mg PO Q6H PRN Eliquis 5 mg tablet 5 mg PO BID Qty: 60 7RF furosemide 40 mg tablet 40 mg PO DAILY Qty: 90 3RF Spiriva with HandiHaler 18 MCG capsule, w/inhalation device 18 mcg Inhalation DAILY mecobalamin (vitamin B12) 10,000 mcg recon soln 1,000 mcg subcut [id number] albuterol sulfate [Ventolin HFA] 90 mcg/actuation HFA aerosol inhaler 2 puff inhalation Q6H PRN triamcinolone acetonide 0.1 % cream 1 applic topical BID digoxin [Digox] 125 mcg (0.125 mg) tablet 125 mcg PO DAILY potassium chloride 10 mEq capsule, extended release 10 meq PO DAILY metoprolol succinate 50 mg tablet extended release 24 hr 50 mg PO BID lisinopril 2.5 mg tablet 2.5 mg PO DAILY Discharge Instructions Instructions: Polyethylene Glycol 3350/Electrolytes (By mouth), Constipation (ED) Additional Instructions: Use GoLytely to encourage bowel movement. Drink the entire bottle. If constipation does not resolve with GoLytely, perform milk and molasses enema: mix 1/2 cup whole milk with 1/2 cup black strap molasses in a sauce santa until mixed and warm (NOT hot). Fill enema bag with this solution and use per rectum. Try to keep solution in rectum as long as possible. Please contact your primary care physician to arrange follow-up. Return to the ER immediately for any worsening or new concerning symptoms. You need to have a colonoscopy as soon as possible. Please follow-up with general surgery to schedule this diagnostic procedure. Referrals: [facility] [Provider Group] Raquel Martin PA [Primary Care Provider] - Medical Decision Making 2008 --81-year-old female here with constipation over the past few days. Abdominal exam is benign. We discussed treatment options and patient is interested in attempting GoLytely and if this is not successful proceeding to milk and molasses enema. Of note, the patient has not yet had a colonoscopy. She notes fear of this procedure. I reviewed the procedure with her and encouraged her to arrange outpatient follow- up. I will refer her to general surgery for colonoscopy. Disposition decision was made weighing the risks and benefits of hospitalization versus outpatient treatment, the risk for further decompensation, and the patient's wishes. The patient was stable and requested discharge. Prior to discharge, my usual and customary return precautions were reviewed with the patient - this included follow-up instructions and reason to return to the emergency department if condition worsens, does not improve as expected, or other new concerns arise. HPI General Mode of arrival: ambulatory . Date/Time Provider Initiated Documentation: 09/13/21 19:27 . Limitations to Documentation: no limitations . Information obtained by: patient . HPI Narrative: 81-year-old female presents with chief complaint of constipation. Patient notes she has not had a normal bowel movement over the past few days. She states she Colace today and a oil enema. She notes she has had some liquid stool after the enema but continues to feel like she needs to have a bowel movement and cannot. She has no associated abdominal pain. Normal appetite. No nausea or vomiting. Related Data Home Medications Medication Instructions Recorded Confirmed tiotropium bromide 18 mcg capsule 18 mcg inhalation DAILY 01/31/17 09/13/21 with inhalation device (Spiriva with HandiHaler) acetaminophen 325 mg tablet 325 mg PO Q6H PRN 01/13/20 09/13/21 (Tylenol) albuterol sulfate 90 mcg/actuation 2 puff inhalation Q6H PRN 05/17/21 09/13/21 aerosol inhaler (Ventolin HFA) mecobalamin (vitamin B12) 10,000 1,000 mcg subcut [id number] 05/17/21 09/13/21 mcg solution for injection triamcinolone acetonide 0.1 % 1 applic topical BID 05/17/21 09/13/21 topical cream apixaban 5 mg tablet (Eliquis) 5 mg PO BID #60 tabs 06/06/21 09/13/21 digoxin 125 mcg (0.125 mg) tablet 125 mcg PO DAILY 07/13/21 09/13/21 (Digox) lisinopril 2.5 mg tablet 2.5 mg PO DAILY 07/13/21 09/13/21 metoprolol succinate 50 mg 50 mg PO BID 04/20/22 06/21/22 tablet,extended release 24 hr potassium chloride 10 mEq 10 meq PO DAILY 07/13/21 09/13/21 capsule,extended release furosemide 40 mg tablet 40 mg PO DAILY #90 tabs 07/19/21 09/13/21 Previous Rx's Medication Instructions Recorded apixaban 5 mg tablet (Eliquis) 5 mg PO BID #60 tabs 06/06/21 furosemide 40 mg tablet 40 mg PO DAILY #90 tabs 07/19/21 Allergies Allergy/AdvReac Type Severity Reaction Status Date / Time pseudoephedrine HCl Allergy Intermediate Swelling/Ed Verified 09/13/21 19:35 [From Sudafed] yuniel Sulfa (Sulfonamide Allergy itch/rash Verified 09/13/21 19:35 Antibiotics) erythromycin base AdvReac Intermediate GI upset Verified 09/13/21 19:35 codeine AdvReac hyper Verified 09/13/21 19:35 General Stated Complaint: Abd Prob ADAM: 4 Review of Systems Constitutional Constitutional: Denies fever(s) Gastrointestinal Gastrointestinal: Reports as per HPI, Denies abdominal pain and Denies vomiting PFSH All Active Problems (Updated 09/13/21 @ 19:56 by Meño Mustafa MD) Constipation (Acute) Diastolic heart failure (Acute) Dyspnea (Acute) Tachycardia (Acute) Pre-diabetes (Acute) PVD (peripheral vascular disease) (Chronic) Lumbar radiculopathy (Acute) Anxiety (Chronic) COPD (chronic obstructive pulmonary disease) (Chronic) Atrial fibrillation, chronic (Acute) COVID-19 (Acute) HTN (hypertension) (Chronic) Dense breasts (Chronic) 2019. Category C. Normal mammogram. Claudication of left lower extremity (Chronic) Pulmonary emphysema (Chronic) PMR (polymyalgia rheumatica) (Chronic) Medical History Dysuria (~10/2018) Hx of carpal tunnel syndrome R side Hx of chronic cholecystitis Limited range of motion of shoulder R sided. Surgical History H/O: pt. soraida, pt. states one child was born vaginally Hx laparoscopic cholecystectomy (~12/30/19) S/P cataract surgery S/P tubal ligation Social History Smoking/Tobacco Use Status: Former Tobacco Use Quit Date: 03/26/07 Tobacco: How many years used: 10 Smoking risk assessment performed?: Yes Alcohol Intake: current Alcohol Intake frequency: holidays/special occasions only Alcohol type: wine and hard liquor Drug use: Never Substance use type: does not use Details: alcohol: t-7 Household members: none and other Details: Lives alone at [facility]. 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 GC - Bhargav 24, Naeem 20, Pavithra 21. Female Reproductive History Menstrual Menopause type: natural History History 6 Para Hx # Term Pregnancies 5 Multiple births Hx # Pregnancies Ectopic pregnancies AB induced Hx Number of Living Children AB spontaneous Exam Const General: cooperative and no acute distress HENMT Mouth: moist mucous membranes Resp Auscultation: clear to auscultation bilaterally, no rales, no rhonchi and no wheezes Cardio Rate: regular rate and not tachycardic Rhythm: regular rhythm GI Palpation: soft, not firm, no guarding, no masses, not rigid and nontender Neuro General: patient alert and patient awake Course Vital Signs Vital signs: Vital Signs Temperature 36.3 C L 09/13/21 19:32 Pulse 87 09/13/21 19:32 Respiratory Rate 18 09/13/21 19:32 Blood Pressure 125/70 09/13/21 19:32 Pulse Oximetry 96 09/13/21 19:32 Temperature 36.3 C L 09/13/21 19:32 Temperature Source Temporal Artery Scan 09/13/21 19:32 Pulse 87 09/13/21 19:32 Respiratory Rate 18 09/13/21 19:32 Blood Pressure 125/70 09/13/21 19:32 Pulse Oximetry 96 09/13/21 19:32 Oxygen Delivery Method Room Air 09/13/21 19:32 Oxygen Flow Rate 0 09/13/21 19:32 Pain Level 4 09/13/21 19:32
== END 2021-09-13 20:19 | disposition home or self-care (01) ==
PROVIDERS: Emergency Provider Student in an Organized Health Care Education/Training Program; PCP Physician Assistant Medical
DX: K59.00 Constipation, unspecified (principal)
CPT/HCPCS: 99282

== ENCOUNTER 2021-11-15 16:12 | Emergency (ER) | payer MEDICARE, MEDICAID, SELFPAY ==
[2021-11-15] VITALS (11 sets, daily range): BP systolic 107–127; BP diastolic 42–75; PULSE 66–103; RESP 13–23; TEMP 36.4–36.5; O2SAT 95–98
--- NOTE | 2021-11-15 16:15 | RT.EKG_ITS ---
APPROVED REPORT Exam: Resting ECG Reason for Exam: sob Patient Location: E HR:66 bpm ECG Measurements Heart Rate 66 AXIS WA [id number] P [id number] QRSd 132 QRS 75 QT 416 T -56 QTc 437 Conclusion Atrial fibrillation...V-rate 53- 82, irreg A-activity Right bundle branch block...QRSd>120, terminal axis(90,270)
--- NOTE | 2021-11-15 17:00 | DI.RAD_ITS ---
Exam(s) XR CHEST 2V PA LATERAL EXAM: XR CHEST 2V PA LATERAL CLINICAL HISTORY: Shortness of breath. TECHNIQUE: 2D digital imaging was performed. COMPARISON: CR,XR XR PORTABLE CHEST AP from 07/08/2021 FINDINGS: 2 views: Mild cardiomegaly. Mediastinum not widened. Heart size is normal. The mediastinum is not widened. Scarring in left upper lobe again noted. No new infiltrates nor pleural effusions. No pulmonary terrence ma. There is no pneumothorax. IMPRESSION: Left upper lobe scarring. Unchanged.Mild cardiomegaly. No pulmonary edema. DATA REPOSITORY: RADIATION DOSE DELIVERED:
[2021-11-15] MEDS: Albuterol/Ipratropium 3 ML UPD VIAL UPD (17:44)
[2021-11-15] MEDS: methylPREDNISolone SUCC 125 MG VIAL IVP (17:44)
[2021-11-15 18:04] LABS: Abs Immature Grans 0.02 10^3/uL (0.0-0.06); Absolute Basophil Count 0.03 10^3/uL (0.0-0.2); Absolute Eosinophil Count 0.05 10^3/uL (0.0-0.7); Absolute Lymphocyte Count 0.83 10^3/uL (1.2-3.4); Absolute Monocyte Count 0.46 10^3/uL (0.1-0.8); Absolute Neutrophil Count 2.84 10^3/uL (1.2-6.7); Basophils % 0.7; Eosinophils % 1.2; HCT 45.7 % (36.0-46.0); Immature Grans % 0.5; Lymphocytes % 19.6; MCH 30.6 pg (27.0-33.0); MCHC 32.8 % (32.0-36.0); MCV 93 fL (80-95); MPV 9.1 fL (8.0-11.0); Monocytes % 10.9; Neutrophils % 67.1; Platelet Count 181 10^3/uL (130-400); RDW 13.2 % (11.7-14.6); RDW-SD 45.1 fL; WBC 4.23 10^3/uL (4.4-10.8)
[2021-11-15 18:24] LABS: ALT 38 U/L (14-59); AST 39 U/L (15-37); Albumin 3.9 g/dL (3.4-5.0); Alkaline Phosphatase 72 U/L (46-116); Anion Gap 5.9 mmol/L (3-11); BUN 23 mg/dL (7-18); Bilirubin, Total 0.7 mg/dL (0.2-1.0); CO2 34.1 mmol/L (21.0-32.0); CREATININE 1.4 mg/dL (0.55-1.02); Calcium 9.2 mg/dL (8.5-10.1); Chloride 98 mmol/L (98-107); Estimated GFR 36.27 (mL/min/1.73m2); Glucose 105 mg/dL (74-106); Potassium 4.2 mmol/L (3.5-5.1); Sodium 138 mmol/L (136-145); Total Protein 7.4 g/dL (6.4-8.2)
[2021-11-15 18:27] LABS: Magnesium 2.2 mg/dL (1.8-2.4); NT-proBNP 3239 pg/mL (<300); Troponin I < 50 ng/L (<or=60)
[2021-11-15 18:34] LABS: D-Dimer 1100 ng/mlFEU (<500)
[2021-11-15 18:51] LABS: Digoxin 1.68 ng/mL (0.90-2.00)
--- NOTE | 2021-11-15 18:55 | DI.VRAD_ITS ---
PROCEDURE INFORMATION: Exam: XR Chest Exam date and time: 11/15/2021 6:29 PM Age: 81 years old Clinical indication: Other: Shortness of breath TECHNIQUE: Imaging protocol: Radiologic exam of the chest. Views: 2 views. COMPARISON: 1. XR PORTABLE CHEST AP 07/08/2021 7:55 PM 2. CR XR CHEST 2V PA LATERAL 05/12/2020 2:41 PM 3. XR PORTABLE CHEST AP 05/01/2020 9:44 AM FINDINGS: Lungs: There are increased interstitial markings bilaterally. Pleural spaces: Unremarkable. No pleural effusion. No pneumothorax. Heart/Mediastinum: Unremarkable. No cardiomegaly. Vasculature: There are arteriosclerotic changes of the aorta. Bones/joints: There are degenerative changes of the thoracic spine. There is osteopenia. IMPRESSION: No significant change when compared to the earlier study dated 07/08/2021. Please see discussion. Dictated and Authenticated by: Ronnie Smith MD. Ordering:ERNESTINA Sorto MD
[2021-11-15] MEDS: Furosemide 40 MG/4 ML VIAL IVP (20:23)
--- NOTE | 2021-11-15 22:25 | ED.GENADUL_ITS ---
Discharge Plan Disposition Patient Disposition: HOME Condition: Improving Discharge Details Clinical Impression: Atrial fibrillation, chronic, COPD (chronic obstructive pulmonary disease), Dyspnea, Diastolic heart failure Primary Care Provider: Raquel Martin ED Provider: Macario Renteria Home Meds and New Rx's Prescriptions: New furosemide 80 mg tablet 80 mg PO DAILY Qty: 3 0RF Continued acetaminophen [Tylenol] 325 mg tablet 325 mg PO Q6H PRN Eliquis 5 mg tablet 5 mg PO BID Qty: 60 7RF furosemide 40 mg tablet 40 mg PO DAILY Qty: 90 3RF Spiriva with HandiHaler 18 MCG capsule, w/inhalation device 18 mcg Inhalation DAILY mecobalamin (vitamin B12) 10,000 mcg recon soln 1,000 mcg subcut [id number] albuterol sulfate [Ventolin HFA] 90 mcg/actuation HFA aerosol inhaler 2 puff inhalation Q6H PRN triamcinolone acetonide 0.1 % cream 1 applic topical BID digoxin [Digox] 125 mcg (0.125 mg) tablet 125 mcg PO DAILY potassium chloride 10 mEq capsule, extended release 10 meq PO DAILY metoprolol succinate 50 mg tablet extended release 24 hr 40 mg PO BID lisinopril 2.5 mg tablet 2.5 mg PO DAILY Discharge Instructions Additional Instructions: Please hold your 40 mg furosemide for the next 3 days and take the prescribed 80 mg tablets. Please also reduce the amount of salt intake that you has which includes both added salt and canned or prepared foods that have a lot of added salt as well. It is very important that you follow-up with your primary care provider for further discussion of any further medication changes. If you have any new or significant worsening of symptoms return to the emergency department immediately for reassessment. Referrals: Raquel Martin PA [Primary Care Provider] - 3 days (For reassessment and potential lab recheck due to increased Lasix) Discharge Data Discharge Date/Time-TO BE ENTERED AT DEPARTURE: 11/15/21 23:22 Medical Decision Making Patient presenting to the emergency department for chief complaint of worsening shortness of breath. Patient does have significant past medical history of asthma, COPD, diastolic heart failure, A. fib, hypertension. Patient reports that this is been going on since her previous admission that she has had ongoing shortness of breath. She was started on multiple medications at that time but has noted a worsening shortness of breath with exertion and specifically in the morning. She does state that it slightly improves when she takes her medications but is concerned due to the increasing dyspnea with activity throughout the day. Patient denies any chest pain, fever chills or other systemic symptoms. Physical exam is unremarkable except for slightly decreased lung sounds in the bilateral lower bauer. We will plan on checking labs including EKG along with digoxin level. Will give patient Please see physician interpretation for full interpretation of EKG but patient does appear to be in her chronic A. fib but appropriate rate. No acute worrisome signs of STEMI noted at this time. Review of labs does show an unremarkable nondiagnostic CBC, CMP with decreased renal function with a BUN of 23, creatinine of 1.4 and a GFR 36. This is markedly worst than previously noted with patient's GFR typically being around 50. Patient had a negative initial troponin but a BNP of 3239 which also is higher than previously noted along with a D-dimer of 1100. Chest x-ray was performed and did show no significant change from 1 performed in June which patient was admitted for CHF at that time. Will give patient increase Lasix to see if this helps with symptoms. initially considered keeping patient for VQ scan due to decreased renal function with inability to fluid bolus due to decreased renal function. But after discussing case with hospitalist and realizing patient is already on Eliquis I feel this is reassuring and lower likelihood that this is a PE. Patient states she would prefer to go home anyways so we will increase patient's Lasix from 40 to 80 mg for [address] patient on follow-up with primary care provider for reassessment. Patient states clear understanding to return for any new or significant worsening of symptoms. After discussion of diagnosis and plan of care patient has no further needs, questions, or concerns and states clear understanding to return to the emergency department for any worsening symptoms. This documentation was generated using [employer] dictation system, please disregard any oddities of phrase or misspellings. HPI General Mode of arrival: ambulatory . Date/Time Provider Initiated Documentation: 11/15/21 16:49 . Limitations to Documentation: no limitations . Information obtained by: patient and RN notes reviewed . History of Present Illness 81 year old F presents to the emergency department with the chief complaint of Shortness of breath, Quality is described as other (Denies pain or discomfort), Patient reports no radiation. Patient started experiencing this month(s) (1) and it has been constant and intermittent. No relieving factors improve symptom(s), Other factors that worsen symptoms (activity) . Patient notes denies chest pain and cough. Patient did receive the following treatments prior to arrival, none Related Data Home Medications Medication Instructions Recorded Confirmed tiotropium bromide 18 mcg capsule 18 mcg inhalation DAILY 01/31/17 11/15/21 with inhalation device (Spiriva with HandiHaler) acetaminophen 325 mg tablet 325 mg PO Q6H PRN 01/13/20 11/15/21 (Tylenol) albuterol sulfate 90 mcg/actuation 2 puff inhalation Q6H PRN 05/17/21 11/15/21 aerosol inhaler (Ventolin HFA) mecobalamin (vitamin B12) 10,000 1,000 mcg subcut [id number] 05/17/21 11/15/21 mcg solution for injection triamcinolone acetonide 0.1 % 1 applic topical BID 05/17/21 11/15/21 topical cream apixaban 5 mg tablet (Eliquis) 5 mg PO BID #60 tabs 06/06/21 11/15/21 digoxin 125 mcg (0.125 mg) tablet 125 mcg PO DAILY 07/13/21 11/15/21 (Digox) lisinopril 2.5 mg tablet 2.5 mg PO DAILY 07/13/21 11/15/21 metoprolol succinate 50 mg 40 mg PO BID 07/13/21 11/15/21 tablet,extended release 24 hr potassium chloride 10 mEq 10 meq PO DAILY 07/13/21 11/15/21 capsule,extended release furosemide 40 mg tablet 40 mg PO DAILY #90 tabs 07/19/21 11/15/21 furosemide 80 mg tablet 80 mg PO DAILY #3 tabs 11/15/21 Previous Rx's Medication Instructions Recorded apixaban 5 mg tablet (Eliquis) 5 mg PO BID #60 tabs 06/06/21 furosemide 40 mg tablet 40 mg PO DAILY #90 tabs 07/19/21 furosemide 80 mg tablet 80 mg PO DAILY #3 tabs 11/15/21 Allergies Allergy/AdvReac Type Severity Reaction Status Date / Time pseudoephedrine HCl Allergy Intermediate Swelling/Ed Verified 11/15/21 16:26 [From Sudafed] yuniel Sulfa (Sulfonamide Allergy itch/rash Verified 11/15/21 16:26 Antibiotics) erythromycin base AdvReac Intermediate GI upset Verified 11/15/21 16:26 codeine AdvReac hyper Verified 11/15/21 16:26 General Stated Complaint: SOB ADAM: 3 Review of Systems Constitutional Constitutional: Denies chills, Reports fatigue, Denies fever(s), Reports malaise and Denies poor appetite ENT Ears, Nose, Mouth, and Throat: Denies nasal discharge, Denies nasal obstruction and Denies sore throat Cardiovascular Cardiovascular: Reports as per HPI, Denies chest pain, Denies syncope, Denies pedal edema, Denies edema, Denies leg edema, Denies lightheadedness, Denies palpitations, Reports dyspnea, Reports dyspnea on exertion and Reports orthopnea Respiratory Respiratory: Reports as per HPI, Reports dyspnea and Reports dyspnea on exertion Gastrointestinal Gastrointestinal: Denies abdominal pain, Denies nausea and Denies vomiting Neurologic Neurologic: Denies syncope Psychiatric Psychiatric: Denies anxiety Endocrine Endocrine: Reports fatigue and Denies palpitations PFSH All Active Problems (Updated 11/15/21 @ 22:56 by Macario Renteria NP) Diastolic heart failure (Acute) Dyspnea (Acute) Tachycardia (Acute) Pre-diabetes (Acute) PVD (peripheral vascular disease) (Chronic) Lumbar radiculopathy (Acute) Anxiety (Chronic) COPD (chronic obstructive pulmonary disease) (Chronic) Atrial fibrillation, chronic (Acute) COVID-19 (Acute) HTN (hypertension) (Chronic) Dense breasts (Chronic) 2019. Category C. Normal mammogram. Claudication of left lower extremity (Chronic) Pulmonary emphysema (Chronic) PMR (polymyalgia rheumatica) (Chronic) Medical History Dysuria (~10/2018) Hx of carpal tunnel syndrome R side Hx of chronic cholecystitis Limited range of motion of shoulder R sided. Surgical History H/O: pt. denies, pt. states one child was born vaginally Hx laparoscopic cholecystectomy (~12/30/19) S/P cataract surgery S/P tubal ligation Social History Smoking/Tobacco Use Status: Former Tobacco Use Quit Date: 03/26/07 Tobacco: How many years used: 10 Smoking risk assessment performed?: Yes Alcohol Intake: current Alcohol Intake frequency: holidays/special occasions only Alcohol type: wine and hard liquor Drug use: Never Substance use type: does not use Details: alcohol: t-7 Household members: none and other Details: Lives alone at [facility]. 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 GC - Bhargav 24, Naeem 20, Pavithra 19. Female Reproductive History Menstrual Menopause type: natural History History 6 Para Hx # Term Pregnancies 5 Multiple births Hx # Pregnancies Ectopic pregnancies AB induced Hx Number of Living Children AB spontaneous Exam Const General: cooperative, healthy appearing, comfortable, no acute distress, not diaphoretic and not ill appearing Nutritional Appearance: average body habitus Orientation: alert, awake and oriented x3 Limitations: mental status not altered Neck Neck: normal visual inspection, full ROM, trachea midline, supple and no anterior neck swelling Thyroid: thyroid normal Carotids: normal carotid upstroke and no bruits Resp Effort & Inspection: normal respiratory effort and able to speak in complete sentences Auscultation: clear to auscultation bilaterally and diminished lung sounds bilaterally in the lower lung bauer Cardio Jugular venous pressure: no JVD Palpation: normal PMI Rate: regular rate Rhythm: abnormal rhythm irregularly irregular Heart Sounds: S1 normal, S2 normal, no click, no gallops, no murmurs and no rubs Bruits: no abdominal aortic bruits and no carotid bruits Pulses: radial pulses present bilaterally 2+ GI Inspection: normal to inspection Palpation: soft, no aortic enlargement, no pulsatile masses and nontender Auscultation: normal bowel sounds Skin General skin exam: no rashes or lesions noted Neuro General: patient alert, patient awake, patient oriented x3, tone normal and moves all extremities Course Vital Signs Vital signs: Vital Signs Temperature 36.5 C 11/15/21 16:20 Pulse 71 11/15/21 16:20 Respiratory Rate 17 11/15/21 16:20 Blood Pressure 127/54 L 11/15/21 16:20 Pulse Oximetry 97 11/15/21 16:20 Temperature 36.4 C 11/15/21 20:34 Temperature Source Oral 11/15/21 20:34 Pulse 76 11/15/21 20:34 Respiratory Rate 16 11/15/21 20:34 Respiratory Effort Short of Breath 11/15/21 16:23 Respiratory Depth Normal 11/15/21 16:23 Respiratory Pattern Normal 11/15/21 16:23 Blood Pressure 121/75 11/15/21 20:34 Blood Pressure Position Sitting 11/15/21 16:20 Pulse Oximetry 95 11/15/21 20:34 Oxygen Delivery Method Room Air 11/15/21 20:34 Oxygen Flow Rate 0 11/15/21 20:34 Pain Level 0 11/15/21 16:20 Lab/Test Results Lab/Test Results: Laboratory Tests Range/Units 11/15/21 11/15/21 11/15/21 17:40 17:40 17:40 WBC (4.4-10.8) 10^3/uL RBC (3.93-5.22) 10^6/uL Hgb (11.2-15.7) g/dL Hct (36.0-46.0) % MCV (80-95) fL MCH (27.0-33.0) pg MCHC (32.0-36.0) % RDW (11.7-14.6) % Plt Count (130-400) 10^3/uL MPV (8.0-11.0) fL Immature Gran % Neutrophils % Lymphocytes % Monocytes % Eosinophils % Basophils % Nucleated RBC % (0.0-0.3) % Absolute Neutrophils (1.2-6.7) 10^3/uL Absolute Lymphocytes (1.2-3.4) 10^3/uL Absolute Monocytes (0.1-0.8) 10^3/uL Absolute Eosinophils (0.0-0.7) 10^3/uL Absolute Basophils (0.0-0.2) 10^3/uL D-Dimer (<500) ng/mlFEU 1100 H Sodium (136-145) mmol/L 138 Potassium (3.5-5.1) mmol/L 4.2 Chloride (98-107) mmol/L 98 Carbon Dioxide (21.0-32.0) mmol/L 34.1 H Anion Gap (3-11) mmol/L 5.9 BUN (7-18) mg/dL 23 H Creatinine (0.55-1.02) mg/dL 1.4 H Estimated GFR/1.73 m2 (mL/min/1.73m2) 36.27 Glucose (74-106) mg/dL 105 Calcium (8.5-10.1) mg/dL 9.2 Magnesium (1.8-2.4) mg/dL 2.2 Total Bilirubin (0.2-1.0) mg/dL 0.7 AST (15-37) U/L 39 H ALT (14-59) U/L 38 Alkaline Phosphatase (46-116) U/L 72 Troponin I (<or=60) ng/L < 50 NT-Pro-B Natriuret Pep (<300) pg/mL 3239 H Total Protein (6.4-8.2) g/dL 7.4 Albumin (3.4-5.0) g/dL 3.9 Digoxin (0.90-2.00) ng/mL Range/Units 11/15/21 11/15/21 17:40 18:40 WBC (4.4-10.8) 10^3/uL 4.23 L RBC (3.93-5.22) 10^6/uL 4.90 Hgb (11.2-15.7) g/dL 15.0 Hct (36.0-46.0) % 45.7 MCV (80-95) fL 93 MCH (27.0-33.0) pg 30.6 MCHC (32.0-36.0) % 32.8 RDW (11.7-14.6) % 13.2 Plt Count (130-400) 10^3/uL 181 MPV (8.0-11.0) fL 9.1 Immature Gran % 0.5 Neutrophils % 67.1 Lymphocytes % 19.6 Monocytes % 10.9 Eosinophils % 1.2 Basophils % 0.7 Nucleated RBC % (0.0-0.3) % 0.0 Absolute Neutrophils (1.2-6.7) 10^3/uL 2.84 Absolute Lymphocytes (1.2-3.4) 10^3/uL 0.83 L Absolute Monocytes (0.1-0.8) 10^3/uL 0.46 Absolute Eosinophils (0.0-0.7) 10^3/uL 0.05 Absolute Basophils (0.0-0.2) 10^3/uL 0.03 D-Dimer (<500) ng/mlFEU Sodium (136-145) mmol/L Potassium (3.5-5.1) mmol/L Chloride (98-107) mmol/L Carbon Dioxide (21.0-32.0) mmol/L Anion Gap (3-11) mmol/L BUN (7-18) mg/dL Creatinine (0.55-1.02) mg/dL Estimated GFR/1.73 m2 (mL/min/1.73m2) Glucose (74-106) mg/dL Calcium (8.5-10.1) mg/dL Magnesium (1.8-2.4) mg/dL Total Bilirubin (0.2-1.0) mg/dL AST (15-37) U/L ALT (14-59) U/L Alkaline Phosphatase (46-116) U/L Troponin I (<or=60) ng/L NT-Pro-B Natriuret Pep (<300) pg/mL Total Protein (6.4-8.2) g/dL Albumin (3.4-5.0) g/dL Digoxin (0.90-2.00) ng/mL 1.68
[2021-11-15 22:35] LABS: Source Nasal/Nares
--- NOTE | 2021-11-15 23:04 | NUR.NOTE ---
Referral faxed to [facility] Raquel Martin to f/u in 3 days for acute on chronic CHF with increased lasix dosing.Nursing Note:
[2021-11-15 23:07] LABS: COVID-19 PCR Negative (Negative)
== END 2021-11-15 23:22 | disposition home or self-care (01) ==
PROVIDERS: Emergency Provider Nurse Practitioner Family; PCP Physician Assistant Medical
DX: I11.0 Hypertensive heart disease with heart failure (principal); I50.30 Unspecified diastolic (congestive) heart failure; I48.20 Chronic atrial fibrillation, unspecified; J44.9 Chronic obstructive pulmonary disease, unspecified; R94.4 Abnormal results of kidney function studies; Z20.822 Contact with and (suspected) exposure to COVID-19; Z87.891 Personal history of nicotine dependence
CPT/HCPCS: 36415; 80053; 87635; 93005; 94640; 96374; 96375; 99284; 71046; 80162; 83735; 83880; 84484; 85025; 85379; 93010; J1940; J2930; J7620

== ENCOUNTER 2021-11-18 18:22 | Outpatient (REF) | payer MEDICARE, MEDICAID, SELFPAY ==
[2021-11-18 16:53] LABS: Anion Gap 9.5 mmol/L (3-11); BUN 29 mg/dL (7-18); CO2 32.5 mmol/L (21.0-32.0); CREATININE 1.5 mg/dL (0.55-1.02); Calcium 9.7 mg/dL (8.5-10.1); Chloride 97 mmol/L (98-107); Glucose 100 mg/dL (74-106); Potassium 4.9 mmol/L (3.5-5.1); Sodium 139 mmol/L (136-145)
--- OUTSIDE RECORDS SUMMARY | 2021-11-18 18:24 | XMS_ITS | Encounter Summary ---
:1940 Author Organization [facility] Address [address] [place] [address] Care Team Providers Name Role Phone Raquel Martin PA-C Primary Care Provider [phone] Reason for Visit Reason Comments Eye Problem Encounter Details Date Type Department Care Team Description 01/22/2019 Office Visit [facility] Sohail Chaudhry, Ophthalmology - [facility] [address] [place] [address], [facility] [place] [id number] (Wo rk) Social History Tobacco Use Types Packs/Day Years Used Date Former Smoker Quit: 08/29/19 07 Smokeless Tobacco: Never Used Alcohol Use Standard Drinks/Week Comments No 0 (1 standard drink = 0.6 oz pure alcoho l) Sex Assigned at Date Recorded Not on file documented as of this encounter Functional Status Functional Status Response Date of Assessment Are you deaf or do you have serious difficulty hearing? No 11/14/2017 Are you blind or do you have serious difficulty seeing, No 11/14/2017 even when wearing glasses? Do you have serious difficulty walking or climbing No 11/14/2017 stairs? (5 years old or older) Do you have difficulty dressing or bathing? (5 years old No 11/14/2017 or older) Because of a physical, mental, or emotional condition, No 01/01/2018 does this person have difficulty doing errands alone such as visiting a doctor's office or shopping? Cognitive Status Response Date of Assessment Because of a physical, mental, or emotional condition, No 01/01/2018 does this person have serious difficulty concentrating, remembering, or making decisions? documented as of this encounter Discharge Disposition Disposition Code Departure Means Destination Auto Discharge documented in this encounter Progress Notes Sohail Chaudhry MD - 01/22/2019 1445 EDT This office note has been dictated. I spent 30 minutes in [id number] conversation and discussion, with more than 50% of that time used for counseling and coordination of care. Sohail Beltre MD - 01/22/2019 0000 EDT [facility] NEURO-OPHTHALMOLOGY PROGRESS / FOLLOWUP NOTE - 01/22/2019 Ms Gann returned for neuro-ophthalmic evaluation because of a history of to date, unexplained vision loss with concern for micronutrient deficiency as well as macular degeneration. To recall, this is a 78-year-old woman who was initially evaluated by me in August 2017, due to unexplained vision loss and subnormal best corrected visual acuity. At the time of her evaluation, the patient reported simply blurring. There was concern for progressive gradual painless vision loss as well as dyschromatopsia. Extensive testing has been performed to date including serologic studies that suggested B12 deficiency or functional B12 deficiency. The patient returned in followup to see me on December 18, 2018 due to further concern for the same. At that point, her vision was somewhat worse andshe had received B12 deficiency. Nonetheless, I have recommended and obtained repeat serologic studies for the same, which showed a low-normal B12 and an elevated methylmalonic acid, again supporting micronutrient deficiency. The patient has also undergone a visual evoked potential and ERG which suggests significant macular disease with relatively intact optic nerve function. She saw Dr Babin immediately previously during her visit with me, with the concern that her vision loss might be related to maculopathy. She denies new or worsening difficulties in the interval and continues to be frustrated with the clarity of her vision with her glasses. The ocular history, medical history, surgical history, social history, family history, medications, and allergies are all unchanged except as noted above and documented in the electronic health record. The neuro-ophthalmic examination found the patient to be communicative and cooperative for testing. Visual acuities with correction were 20/60-2 in the right and 20/150-2 in the left eye. Color vision (Ishihara) showed 2/13 correct pseudoisochromatic plates in each eye. Amsler grid testing showed no me tamorphopsia in each eye. The pupils were equal in size, sluggishly responsive with no afferent pupillary defect. 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 Lids were in normal position and showed no lid lag or twitch. Examination of extraocular motility showed no strabismus. There was choppy pursuit, normal saccades in motor and persistence. There was no nystagmus. Applanation tonometry at 1406 hours were 16 mmHg in the right eye, 18 mmHg in the left eye. Slit lamp examination revealed blepharitis, early breakup of the tear film, well-placed posterior chamber intraocular lens with clear corneal incisions. Undilated stereoscopic (indirect) funduscopy revealed temporal pallor. There is mottling of both maculae. Cup-to-disc ratio, 0.3. There is mild vascular attenuation in each eye. FORMULATION: This is a 78-year-old woman seen for followup neuro-ophthalmic evaluation because of a history of painless progressive vision loss. The patient has had consultation with my colleague, Dr Babin, who feels that much of her vision loss is attributed to macular changes. This is supported by the recent ERG. The patient has continued mildly elevated methylmalonic acid and low-normal B12. I have encouraged her to take the AREDS multivitamin as recommended by Dr Babin in the hope that this will slow her macular changes. I further recommended that she have additional supplementation with B12 and monitoring to ensure that her methylmalonic acid is returning to the normal range. I would not rely on her B12 level as the cut off for normal is highly variable amongst different labs and may give us a false sense of security. The patient prefers to follow ongoing care close to home. I think that is reasonable provided she is otherwise doing well and there are no additional difficulties. Please do not hesitate to contact me with any further questions or concerns. Sohail Chaudhry MD Diplomate, the [place] [employer] aws architect Department of Ophthalmology NEURO-OPHTHALMOLOGY documented in this encounter Plan of Treatment Not on filedocumented as of this encounter Visit Diagnoses Diagnosis Maculopathy - Primary Unspecified retinal disorder documented in this encounter Eye Exam Slit Lamp Exam Right eye Left eye Lids/Lashes Normal Normal Conjunctiva/Sclera White and quiet White and quiet Cornea Clear Clear Anterior Chamber Deep and quiet Deep and quiet Iris Round and reactive Round and reactive Lens Posterior chamber intraocular Posterior chamber intraocular lens lens Fundus Exam Right eye Left eye Disc temp pallor temp crescent C/D Ratio 0.3 0.3 Macula drusen like changes, mottling from mottl ed in PM bundle no SSF, HE or nerve to macula no heme, HE or SSF heme Care Teams Glass Ribbon Machine Operator Assistant Relationship Specialty Start Date End Date Raquel Martin PA-C PCP - General 08/28/17 [address] [place] [id number] documented as of this encounter
--- OUTSIDE RECORDS SUMMARY | 2021-11-18 18:24 | XMS_ITS | Encounter Summary ---
:[address] [facility] Address [address] [place] [address] Care Team Providers Name Role Phone Raquel Martin PA-C Primary Care Provider [phone] Encounter Details Date Type Department Care Team Description 12/26/2019 Lab Requisition [facility] Outr Resulting Lab, Pathology & Laboratory Provider [facility] [address], [place] [id number] Social History Tobacco Use Types Packs/Day Years [...] making decisions? documented as of this encounter Plan of Treatment Not on filedocumented as of this encounter Procedures Procedure Name Priority Date/Time Associated Comments Diagnosis DO NOT ORDER Today 12/26/2019 9:28 EDT Results for this STANDALONE - BROAD procedure are in COVID TEST the results section. COVID-19 TESTING Routine 12/26/2019 9:28 EDT Resu lts for this procedure are i n the results section. documented in this encounter Results DO NOT ORDER STANDALONE - BROAD COVID TEST (12/26/2019 9:28 EDT) COVID-19 rt-PCR NEGATIVE Negative [facility] Result Comment: LABORATORY 2019-novel Coronavirus (2019 -nCoV) not detected by the qRT-PCR assay. Consider testing for other respiratory viruses or re-collecting for 2019-nCoV testing. Note: Optimum timing for peak viral levels du ring infections caused by 20 -nCoV have not been determined. Collection of multiple specimens from the same patient may be necessary to detect the virus. Limitations Positive results are indicat ethel of active infection with SARS-CoV-2 but do not rule out bacterial infection or co-infection with other viruses. The agent detected may not be the definite cause of diseas e. In addition, detection of viral RNA may not indicate the presence of infectious virus or that SARS-CoV-2 is the causative agent for clinical symptoms. Negative results do not prec lude SARS-CoV-2 infection and should not be used as the sole basis for patient management decisions. Negative results must be combined with clinical observations, patient his tory, and epidemiological in formation. False negative results may also occur if amplification inhibitors are present in the specimen or if inadequate numbers of organisms are present in the specimen. Op timum specimen types and archie ing for peak viral levels during infections caused by SARS-CoV-2 have not been fully determined. Collection of multiple specimens (types and time points) from the same patient may be necessary to detect the virus. The test was validated for u se with upper respiratory specimens obtained via nasopharyngeal or oropharyngeal swabs in VTM, UTM, M4, M5, M6, saline, and MTM media. The performance of this test has not be en established for other spe cimens. Specimens collected using other FDA recommended Specimen Collection Materials listed in the FDA COVID-19 [employer] communication (June 19, 2019) are pr ocessed with the caveat that they were not all validated for use with this test and the result must be interpreted in this context. Furthermore, a false negative results may occur if a specimen is improperly collected, transported or handled. If the virus mutates in the RT-PCR target region, SARS-CoV-2 may not be detected or may be detected less predictably. Inhibitors or other types of interference may produce a false negative result. An interference study evaluating the effect of common cold medications was not performed. This test is not FDA-cleared but its performance characteristics were established by our CLIA-certified, CAP-accredited, high complexity laboratory in accordance with CLIA regulations, [employer] (CAP) guidel masoud (Jun 12, 2019), and FDA guidance (May 24, 2019). This test is only for use un sasha the Food and Drug Administration's Emergency Use Authorization. Specimen Swab - Entire nasopharynx (body structur e) Performing Organization Address City/State/ZIP Code Phon e Number [facility]OR[facility]ORY [facility] [place] COVID-19 TESTING (12/26/2019 9:28 EDT) COVID-19 rt-PCR NEGATIVE Negative [facility] Result Comment: LABORATORY 2019-novel Coronavirus (2019 -nCoV) not detected by the qRT-PCR assay. Consider testing for other respiratory viruses or re-collecting for 2019-nCoV testing. Note: Optimum timing for peak viral levels du ring infections caused by 20 19-nCoV have not been determined. Collection of multiple specimens from the same patient may be necessary to detect the virus. Limitations Positive results are indicat ethel of active infection with SARS-CoV-2 but do not rule out bacterial infection or co-infection with other viruses. The agent detected may not be the definite cause of diseas e. In addition, detection of viral RNA may not indicate the presence of infectious virus or that SARS-CoV-2 is the causative agent for clinical symptoms. Negative results do not prec lude SARS-CoV-2 infection and should not be used as the sole basis for patient management decisions. Negative results must be combined with clinical observations, patient his tory, and epidemiological in formation. False negative results may also occur if amplification inhibitors are present in the specimen or if inadequate numbers of organisms are present in the specimen. Op timum specimen types and archie ing for peak viral levels during infections caused by SARS-CoV-2 have not been fully determined. Collection of multiple specimens (types and time points) from the same patient may be necessary to detect the virus. The test was validated for u se with upper respiratory specimens obtained via nasopharyngeal or oropharyngeal swabs in VTM, UTM, M4, M5, M6, saline, and MTM media. The performance of this test has not be en established for other spe cimens. Specimens collected using other FDA recommended Specimen Collection Materials listed in the FDA COVID-19 [employer] communication (June 19, 2019) are pr ocessed with the caveat that they were not all validated for use with this test and the result must be interpreted in this context. Furthermore, a false negative results may occur if a specimen is improperly collected, transported or handled. If the virus mutates in the RT-PCR target region, SARS-CoV-2 may not be detected or may be detected less predictably. Inhibitors or other types of interference may produce a false negative result. An interference study evaluating the effect of common cold medications was not performed. This test is not FDA-cleared but its performance characteristics were established by our CLIA-certified, CAP-accredited, high complexity laboratory in accordance with CLIA regulations, [employer] (CAP) guidel masoud (Jun 12, 2019), and FDA guidance (May 24, 2019). This test is only for use un sasha the Food and Drug Administration's Emergency Use Authorization. Performing Lab [facility] LABORATORY SERVICES Specimen Swab Performing Organization Address City/State/ZIP Code Phon e Number [facility] [address] [place] [address] SERVICES [facility] [place] documented in this encounter Visit Diagnoses Not on filedocumented in this encounter Care Teams [employer] Relationship Specialty Start Date End Date Raquel Martin PA-C PCP - General 08/28/17 [address] [place] [address] documented as of this encounter
--- OUTSIDE RECORDS SUMMARY | 2021-11-18 18:24 | XMS_ITS | Encounter Summary ---
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 This finding is likely related to vitamin B12 deficiency. . ADDITIONAL INFORMATION ------ This test was developed and its performance characteri stics determined by [facility] in a manner consistent with CLIA requirements. This test has not been cleared or approv ed by the U.S. Food and Drug Administration. Performed or Referred by: [facility] Labs [facility], [address] [place] [address] Specimen Blood specimen (specimen) - Blood Performing Organization Address [facility] e Number [facility] LABOR[facility]ORY [address] [place] [address] SERVICES VITAMIN B12 (12/18/2018 12:03 EDT) Pathologist Sig nature Vitamin B-12 229 211 - 911 pg/ml [facility] LABORATORY SERVICES Specimen Blood specimen (specimen) - Blood Performing Organization Address [facility] e Number [facility] [address] [place] [address] SERVICES VITAMIN E, SERUM (12/18/2018 12:03 EDT) Alpha- Tocopherol 13.5 5.5 - 17.0 [facility] (Vitamin E) Comment: mg/L [facility] LABORATORY (Note) SERVICES . ADDITIONAL INFORMATION ------ This test was developed and its performance characteri stics determined by [facility] in a manner consistent with CLIA requirements. This test has not been cleared or approv ed by the U.S. Food and Drug Administration. Performed by: [facility] Labs: [address], [place] [address] Specimen Blood specimen (specimen) - Blood Performing Organization Address [facility] e [facility] LABORATORY [address] [place] [address] SERVICES VITAMIN A, S (12/18/2018 12:03 EDT) Vitamin A 59.7 32.5 - 78.0 [facility] Comment: mcg/dL LABORATORY (Note) SERVICES . ADDITIONAL INFORMATION ------ This test was developed and its performance characteri stics determined by [facility] in a manner consistent with CLIA requirements. This test has not been cleared or approv ed by the U.S. Food and Drug Administration. Performed by: [facility] Labs: [address], [place] [address] Specimen Blood specimen (specimen) - Blood Performing Organization Address City/[facility]/ZIP Code Phon e Number [facility]ORY [address] [place] [address] SERVICES (ABNORMAL) COMPLETE BLOOD COUNT AND DIFFERENTIAL (12/18/2018 12:03 EDT) Pathologist Sig nature WBC 4.64 4.0 - 12.4 [facility] LABORATORY SERVICES RBC 4.67 3.86 - 5.04 [facility] M[facility] LABORATORY SERVICES Hemoglobin 14.2 11.6 - 15.2 [facility] gm/dl LABORATORY SERVICES HCT 43.9 34.9 - 44.4 % [facility] LABORATORY SERVICES MCV 94 81 - 98 fl [facility] LABORATORY SERVICES MCH 30.4 26.7 - 33.3 pg [facility] LABORATORY SERVICES MCHC 32.3 32.1 - 35.9 [facility] gm/dl LABORATORY SERVICES RDW-CV 13.0 <14.7 % [facility] LABORATORY SERVICES RDW-SD 44.4 <50.4 fl [facility] LABORATORY SERVICES PLT 226 141 - 377 K/[facility] LABORATORY SERVICES MPV 9.3 (L) 9.5 - 12.7 fl [facility] LABORATORY SERVICES Neutrophils 61.9 % [facility] LABORATORY SERVICES Lymphocytes 26.7 % [facility] LABORATORY SERVICES Monocytes 9.3 % [facility] LABORATORY SERVICES Eosinophils 1.3 % [facility] LABORATORY SERVICES Basophils 0.6 % [facility] LABORATORY SERVICES Immature Grans 0.2 % [facility] LABORATORY SERVICES ABS Neutrophils 2.87 2.20 - 8.85 [facility] LABORATORY SERVICES ABS Lymphs 1.24 1.09 - 3.30 [facility] LABORATORY SERVICES ABS Monocytes 0.43 0.1 - 0.8 K/[facility] LABORATORY SERVICES ABS Eosinophils 0.06 0.03 - 0.61 [facility] LABORATORY SERVICES ABS Basophils 0.03 0.01 - 0.11 [facility] LABORATORY SERVICES ABS Immature Grans 0.01 0 - 0.06 /[facility] LABORATORY SERVICES Type of Diff: Automated [facility] LABORATORY SERVICES Specimen Blood specimen (specimen) - Blood Performing Organization Address City/[facility]/ZIP Code Phon e Number [facility]ORY [address] [place] [address] SERVICES ANCA, IFA (12/18/2018 12:03 EDT) ANCA Interpretation Negative Negative [facility] Comment: LABORATORY DAVID Positive, suggest follow-up DAVID testing if c linically indicated. Cannot SERVICES rule out Atypical ANCA (A-ANCA). No titer performed, ANCA screen is negative. Results were obtained with the INOVA NOVA Lite ANCA ki t by indirect immunofluorescence. 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
--- OUTSIDE RECORDS SUMMARY | 2021-11-18 18:24 | XMS_ITS | Encounter Summary ---
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 Level [address] [place] [address] Visual field defects; Welsh Jaye, Lotus Neil MD Cerebral aneurysm, nonruptured; [address] [facility] Scotoma involving [place] [id number] Social History Tobacco Use Types Packs/Day Years [...] decisions? 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 ALBUTEROL INHL Inhale as directed as 0 needed. lisinopril (PRINIVIL, Take 2.5 mg by mouth 0 ZESTRIL) 2.5 mg tablet daily. Multivitamins with Take 1 Tab by mouth 0 Minerals tablet tablet daily. NIFEdipine XL Take 30 mg by mouth 0 (PROCARDIA-XL) 30 mg daily. tablet tiotropium (SPIRIVA WITH Inhale 18 mcg as 0 HANDIHALER) 18 mcg directed daily. 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 Patient condition: Alert and cooperative Visual Acuity: Left 20/60 Right 20/50 with corrective lenses Medications Administered: proparacaine 0.5% tropicamide 1% Technical Description: The patient's eye to be tested is numbed, dialted and dark adapted for 30 minutes in a dark room. A DTL fiber electrode is placed in the eye referenced to Fz. A Ganzfeld stimulator is used for all flash stimuli. In the dark adapted state a very dim flash is used to elicit a purerod response. A bright flash is used to elicit a mixed nicole and cone response and the oscillatory potentials. The eye is then light adapted for 10 minutes and the bright flash elicits a pure cone response and thirty Hz flicker stimulus also provides a pure cone response. Filter settings are: LFF 0.3Hz,HFF 500Hz Findings: See data in scans in PRISM Impression: Amplitudes in the dark and light adapted state are entirely normal on the electroretinogram for each eye. Implicit times are at the upper limits of normal or somewhat abnormal in the photopic state. Bravo Fajardo MD, PhD ABPN Neurology ABCN Clinical Neurophysiology Pattern Visual Evoked Potential Report Referring Physician: Sohail Adantamika Study Number: [id number] Clinical Indication: Patient with an unexplained scotoma in the left eye and bilateral thinning of the macula in the temporal area. The patient also has the history of polymyalgia rheumatica and concern for associated arteritis as well as a nutritional deficiency of B12 possibly explaining her progressive left eye vision problems. Patient condition: Alert and cooperative Technical Description: Independent monocular stimulation is performed using a pattern reversal stimulus with standard check size of 27 minutes. Filter settings are: LFF 1 Hz, HFF 1,000 Hz. At least twoindependent averages are obtained. Eight recording channels are employed including Oz-Fz as well as O1 and O2 and other lateral posterior channels. Findings: Wave Left (msec) Right (msec) L.D. (msec) P100 131.5 126.5 5.0 L.D. = Latency Difference Impression: The pattern reversal visual evoked potentials are rather noisy perhaps related to the marginal vision for the check size. There is a reversing asymmetry of the hemispheric distribution raising the possibility of a chiasmatic problem. The degree of delay bilaterally is consistent with a fairly severe macular problem or mild or optic neuritis is on both sides. Bravo Fajardo MD, PhD ABPN Neurology ABCN Clinical Neurophysiology documented in this encounter Plan of Treatment Not on filedocumented as of this encounter Procedures Procedure Name Priority Date/Time Associated Diagnosis Comme nts EEG - SCANNED 01/07/2019 8:29 EDT documented in this encounter Visit Diagnoses Diagnosis Retinal disease Unspecified retinal disorder Visual field defects Visual field defect, unspecified Cerebral aneurysm, nonruptured Scotoma involving central area of both e yes Scotoma involving central area in visual field documented in this encounter Orders Procedures Count Last Ordered Date First Ordered Date EEG - SCANNED 1 01/07/2019 documented in this encounter Care Teams [employer] Relationship Specialty Start Date End Date Raquel Martin PA-C PCP - General 08/28/[address] [place] [id number] documented as of this encounter
--- OUTSIDE RECORDS SUMMARY | 2021-11-18 18:24 | XMS_ITS | Encounter Summary ---
:1940 Author Organization [facility] Address [address] [place] [address] Care Team Providers Name Role Phone Raquel Martin PA-C Primary Care Provider [phone] Reason for Visit Reason Comments Eye Exam Eval of AMD Encounter Details Date Type Department Care Team Description 01/22/2019 Office Visit [facility] Ted Babin MD Ophthalmology - [address], [address], [address] [place], [place] [id number] [place] [address] [phone] (Wo rk) Social History Tobacco Use Types [...] making decisions? documented as of this encounter Patient Instructions Patient InstructionsAnju Ruelas OTA - 01/22/2019 13:00 EDT Images from the original note were not included. Vitamin & Mineral Supplements and Your Eyes -Background Scientists have long debated whether taking vitamin and/or mineral supplements could help prevent, treat or cure certain eye conditions. Some early scientific studies seemed to show that supplements had the potential to prevent or slow the progression of cataracts and age-related macular degeneration (AMD), although more complete study was needed to answer some important questions: Which supplements are helpful for which condition(s)? Which patients will benefit from supplementation? What doses of supplements would benefit patients? What other effects might these supplements have on the body? A recent study, the Age-Related Eye Disease Study (AREDS), sought to address these questions, and seems to have given us some (but not all) of the answers to these questions. -What is AREDS? The Age-Related Eye Disease Study (AREDS) is a major study sponsored by the [employer] [facility] [place] (NEI), one of the Federal Government's National Institutes of Health, and conducted at [facility] [place] the country. In the study, scientists looked at the effects of zinc and antioxidants, and a combination of both, on patients with cataracts, and on those with varying stages and types of age-related macular degeneration (AMD). They also studied patients without evidence of cataract or AMD to determine if zinc and/or antioxidants can prevent the development of these conditions. -What were the results? The study showed a number of important things: High levels of antioxidants and zinc can reduce the risk of vision loss from advanced AMD by 19% in high-risk patients (patients with intermediate AMD or advanced AMD in one eye but not the other). Supplements do not provide significant benefit to patients with minimal AMD. These nutritional supplements do not prevent the initial development of AMD, nor do they improve vision already lost to AMD. Nutritional supplements do not seem to prevent cataracts, or to keep them from getting worse over time. While most patients in the study experienced no serious side effects from the doses of zinc and antioxidants used, a few taking zinc alone had urinary tract problems that required hospitalization. Somepatients taking large doses of antioxidants experienced some yellowing of the skin. The long-term effects of taking large doses of these supplements are still unknown. -Should I Take Nutritional Supplements? If you have intermediate AMD (or advanced AMD in one eye only), talk to your physician about taking nutritional supplements. He or she can help you determine if they may be beneficial - and safe ??? for you, and what types and doses of supplements to take. The doses used in the study were: -Vitamin C 500 mg -Vitamin E 400 IU -Zinc 80 mg, as zinc oxide -Copper 2 mg, as cupric oxide (copper should be taken with zinc, because high- dose zinc is associated with copper deficiency). -Lutein 10mg -Zeaxanthin 2mg It is very important to talk with your physician before taking large-dose supplements, and to followhis or her dosage recommendations carefully. Some supplements may interfere with each other or othermedications. -Where Can I Get More Information? More information on AREDS is available from the [facility] [place] of the National Institutes ofHealth, www.nei.nih.gov/amd. Your Eye M.D. is your best source of information about eye care. You can also get trustworthy information from the [place] [employer]'s partner Web site, [employer] www.Oxxy/MedLB/bufferpage aao.cfm. -What Should You Buy? To try to dispel some confusion about what AREDS preparation to take the preparation that seems to have the closest to what the AREDS study group suggest is the [employer] PreserVision Eye Vitaminand Mineral Supplement. It is a blue and orange (or blue and green) label and it says AREDS II (or 2) on it. You take 1 of these pills, which are Soft Gels, twice a day, with a full glass of water during a meal. Instructions on using the Amsler Grid: 1. Wear your reading glasses 2. Cover one eye 3. Look at the center dot and keep your eye focused on it at all times. 4. Whilelooking directly at the center, and only at the center, be sure that all the lines are straight and that all the small squares are the same size. 5. If you should notice any area on the grid that becomes distorted, blurred, discolored, or otherwise abnormal, please call your transplanter at [facility] right away @ [phone]. 6. Do the test for each eye separately. documented in this encounter Progress Notes Justin Babin - 01/22/2019 1300 EDT Chief Complaint Patient presents with ??? Eye Exam Eval of AMD HPI Location: Both eyes Pain: 0 - No pain Quality: Blurry Severity: Moderate Duration: Months Timing: Constant Lasts: Continuous Context: pt states when she covers her right eye she feels she has a dark area in temporal left eye VA. Modifying factors: is able to read but does need good light to read. distance VA ok. some night timedriving but not significant Associated Signs & Symptoms: no flashes or floaters Visual Fluctuations: None Attestation: hx of PMR and hx of being on Prednisone for about 1 year. VA blurry gradually worseningover time. No flashes or floaters Base Eye Exam Visual Acuity (Snellen - Linear) Right Left Dist cc 20/60 -2 20/150 -2 Tonometry (Applanation, 14:06) Right Left Pressure 16 18 Pupils Pupils Right PERRL Left PERRL Visual Flower Right Left Full Full Extraocular Movement Right Left Full Full Neuro/Psych Oriented x3: Yes Mood/Affect: Normal Dilation Both eyes: 1.0% Mydriacyl, 2.5% Phenylephrine @ 14:06 Additional Tests Color Right Left Ishihara /13 2/13 Slit Lamp and Fundus Exam Slit Lamp Exam Right Left Lids/Lashes Normal Normal Conjunctiva/Sclera White and quiet White and quiet Cornea Clear Clear Anterior Chamber Deep and quiet Deep and quiet Iris Round and reactive Round and reactive Lens Posterior chamber intraocular lens Posterior chamber intraocular lens Fundus Exam Right Left Disc temp pallor temp crescent C/D Ratio 0.3 0.3 Macula drusen like changes, mottling from nerve to macula no heme, HE or SSF mottled in PM bundle no SSF, HE or heme Imaging: OCT REPORT Indications: Age-related Macular Degeneration Findings: Right Eye Left Eye atrophic PM bundle atrophic PM bundle Original test to be found in patients shadow chart Impression: 1. Early dry stage nonexudative age-related macular degeneration of both eyes 2. Lens replaced by other means 3. Intermediate stage nonexudative age-related macular degeneration of right eye Plan: Possible Macular degeneration both eyes Rehan Fritz has been informed that she has age-related macular degeneration that is dry. She will be started on AREDS II vitamins every day with daily use of the Amsler Grid. We have suggested that she use Ocuvite PreserVision AREDSII Gelcaps oral twice a day. A handout on AREDS study has been givento her. ( EITHER TODAY OR PREVIOUSLY) She understands the difference between wet and dry macular degeneration and understands the extreme importance of daily use, one eye at a time of the Amsler Grid. She also understands the extreme importance of immediate reporting of any Amsler Grid changes, i.e.,this may represent transformation of dry ARMD to wet macular degeneration which needs to be dealt with urgently. She also understands that failure to report change in the Amsler Grid could result in severe loss of vision from progressive wet age-related macular degeneration. PCIOL both eyes Pt has well placed IOL(s) and natural lens of eye has been removed. There is no anterior segment inflammation. Positioning of stew(s) is good. Patient reassured. Increased risk RD post lensectomy /IOL Spoke with Rehan Fritz and cautioned them to notice any new flashes, floaters, or loss in peripheral vision. If they saw any of these signs, they were instructed to contact office immediately. They have been further counseled to cover the unaffected eye at least once per day to ascertain whether there is any increase in floaters , flashes or loss of side vision occurring in the affected eye. This office note has been dictated. Recommend low vision eval Return PRN Recommend seeing Dr. Trejo two times a year as pt doesn't want to make trip here I, Dr. Babin, have performed my own HPI and reviewed the tech's ROS. I have also reviewed the patient's past medical, family, social and surgical history, as well as the patient's medications, allergies, and problem list. I am scribing for Dr. Justin Babin MD while he is personally performing the service. PATRICIA Nevarez (Scribe) Justin Santos - 01/22/2019 0000 EDT [facility] OPHTH[facility] January 22, 2019 Sohail Chaudhry MD [facility] - Ophthalmology [address] [place] [address] RE: REHAN FRITZ : [address] Chaudhry: Rehan Fritz was seen today at your request, Korey. As you know, she has been worked up for central cecal scotoma, dyschromatopsia and has been felt to potentially have a B12 deficiency based upon elevated methylmalonic acid and a borderline low B12. She has had visual evoked potentials and ERG demonstrating mildly delayed latencies in each eye consistent with macular maculopathy or mild optic neuropathy bilaterally. Her vision is moderately to severely depressed, left greater than right, has been so for months in acontinuous fashion. This has occurred slowly over the course of some time. She has a family history of macular degeneration in her mother. I have examined the following ophthalmic exam components for this patient, inspection of bulbar and palpebral conjunctivae, ocular adnexa, which includes the lids, lacrimal glands, lacrimal drainage, orbits and preauricular lymph nodes, examination of pupils including shape, reaction and size, morphology not done due to mydriasis, irises were examined, presence or absence of rubeosis, corneal exam including epithelium, stroma, endothelium and tear film, anterior chambers including depth, cells and flare, lens exam including clarity, anterior and posterior capsule, cortex and nucleus. The above are all normal both eyes except PCIOLs. Extended ophthalmoscopy was done with Hruby lens and indirect scope today. Indications: Central cecal scotoma, decreased vision. Findings: The patient has slight pallor of her temporal discs, right greater than left. She has RPE changes in the papillomacular bundle involving the fovea with some drusen-like changes in both eyes. There is no hemorrhage, hard exudate or subsensory retinal fluid. IS, OS changes are noted in the PM bundle in both eyes, particularly on OCT. Assessment: 1. Maculopathy consistent with the patient's visual field changes. I think that the patient likely has decreased vision based upon her macular status. She has some drusen-like changes so this may well be a feature of an age-related macular degeneration. I am going to get the [place] [employer] to see the patient and hopefully help her maximize use of her current vision. 2. Elevated methylmalonic acid and borderline low B12. I certainly do not have any objections to you, supplementing the patient with B12. 3. PC implants look great. Follow. In summary, the patient's macular problems are consistent with her visual field changes. This could be macular degeneration. I have only seen the patient once. This picture is something that might alsobe seen in a patient that had chronic disc edema and macular edema involving the peripapillary area,but I would tend to favor the macular degeneration hypothesis given that the patient has been seen by multiple eye doctors in the past and there has been no mention of any disc swelling or leakage. I think the patient should be seen every 6 months to follow up on her macular degeneration. She tells me that transportation is an issue for her and it is much easier to see Dr Trejo so I am going to recommend that she see Shin in 6 months or p.r.n. We will instruct her in the use of the Amsler gridand I think she should probably start on the AREDS 2 formula, which we will give her a handout on. Thanks for letting me participate in her care. I am glad to see her again at any time as you see fitor as Shin Trejo sees fit. Sincerely, Justin Babin MD 03 23 PM - Justin Babin MD ln Dictation ID: [id number] cc: Raquel Martin PA-C, [address] [id number] Sohail Chaudhry MD, [facility] - Ophthalmology [address] [place] [address] Myles Trejo MD, [facility] [address], [address], [place] [address] documented in this encounter Plan of Treatment Scheduled Orders Name Type Priority Associated Diagnoses Order S chedule OCT (OPHTHALMIC Ophthalmology Routine Intermediate stage Order ed: 01/23/2019 DIGITAL IMAGING, nonexudative POSTERIOR SEGMENT) age-related macular degeneration of right eye documented as of this encounter Visit Diagnoses Diagnosis Intermediate stage nonexudative age-rela ivis macular degeneration of right eye - Primary Lens replaced by other means documented in this encounter Eye Exam Visual Acuity (Snellen - Linear) Right eye Left eye Dist cc 20/60 -2 20/150 -2 Tonometry (Applanation, 14:06) Right eye Left eye Pressure 16 18 Pupils Pupils Right eye PERRL Left eye PERRL Visual Flower Right eye Left eye Full Full Extraocular Movement Right eye Left eye Full Full Neuro/Psych Oriented x3: Yes Mood/Affect: Normal Dilation Both eyes: 1.0% Mydriacyl, 2.5% Phenylep hrine @ 14:06 Color Right eye Left eye Ishihara 05/08 05/08 Slit Lamp Exam Right eye Left eye [...] heme, HE or SSF heme Care Teams Machine Pie Maker Relationship Specialty Start Date End Date Raquel Martin PA-C PCP - General 08/28/17 [address] [place] [id number] documented as of this encounter
--- OUTSIDE RECORDS SUMMARY | 2021-11-18 18:24 | XMS_ITS | Encounter Summary ---
:[address] [facility] Address [address] [place] [address] Care Team Providers Name Role Phone Raquel Martin PA-C Primary Care Provider [phone] Encounter Details Date Type Department Care Team Description 12/18/2018 Hospital Encounter [facility] MD [place] [address] [facility] [address] [phone] [place], [address] [place] [address] (Wo rk) Social History Tobacco Use [...] as of this encounter Discharge Diagnoses Diagnosis H53.40 Unspecified visual field defects- H53.40[ICD-10-CM] I67.1 Cerebral aneurysm, nonruptured-I67 .1[ICD-10-CM] H35.30 Unspecified macular degeneration (age-related)-H35.30[ICD-10-CM] H53.413 Scotoma involving central area, bilateral-H53.413[ICD-10-CM] documented in this encounter Medications at Time [...] Auto Discharge Home documented in this encounter Plan of Treatment Not on filedocumented as of this encounter Visit Diagnoses Not on filedocumented in this encounter Care Teams Fleet Manager Relationship Specialty Start Date End Date Raquel Martin PA-C PCP - General 08/28/17 [address] [place] [address] documented as of this encounter
--- OUTSIDE RECORDS SUMMARY | 2021-11-18 18:24 | XMS_ITS | Encounter Summary ---
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 Sohail Chaudhry MD Procedures OCT (OPHTHALMIC DIGITAL IMAGING, POSTERIOR SEGMENT) [address] [phone] Referral ID Status Reason Start Date Expiration Date Visits V isits Requested Authorized [id number] New Request 12/18/2018 1 1 (Routine) - New Request Specialty Diagnoses / Procedures Referred By Contact Refer red To Contact Diagnoses Visual field defect Aneurysm of anterior cerebral artery Macular degeneration of both eyes, unspecified type 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 No eye pain. No flashe s. No floaters. Same rare headaches. Occasional diplopia, pt thin ks objects are side by side, has not tried closing/covering eithe r eye. Pt not using eye drops Consult, Test and Treat (Routine) - Authorization Not Required Specialty Diagnoses / Procedures Referred By Contact Refer red To Contact Ophthalmology Diagnoses Vitreous degeneration Raquel Martin, Sohail Chaudhry PA-C MD [address] [place] [phone] [place] [address] Pavilion, [address] [place] [address] Phone: Fax: Referral ID Status Reason Start Expiration Visits Visits Date Date Requested Authorized [id number] Authorization Not 1 1 Required Encounter Details Date Type Department Care Team Description 12/18/2018 Office Visit [facility] Sohail Chaudhry, Ophthalmology - [address] [address] [address], [place] [address] (Wo rk) Social History Tobacco [...] nonruptured-I67 .1[ICD-10-CM] H35.30 Unspecified macular degeneration (age-related)-H35.30[ICD-10-CM] documented in this encounter Discharge Disposition Disposition Code Departure Means Destination Auto Discharge documented in this encounter Progress Notes Sohail Chaudhry MD - 12/18/2018 0830 EDT This office note has been dictated. I spent 30 minutes in [id number] conversation and discussion, with more than 50% of that time used for counseling and coordination of care. documented in this encounter Consult Notes Sohail Chaudhry MD - 12/18/2018 0000 EDT [facility] NEURO-OPHTHALMOLOGY CONSULTATION - 12/18/2018 Ms Gann returned for followup neuro-ophthalmic evaluation because of the history of unexplained vision loss. To recall, this 78-year-old woman who was seen by me in 08/2017 due to an unexplained scotoma in theleft eye and subnormal best corrected visual acuity. At that time, the patient was seen to have relatively intact vision in the right eye and moderate loss in the left with some degree of dyschromatopsia in the left more so than right eye. There is no clear thinning at the optic nerves; however, the maculae were thin in each eye temporally. Complicating things, there was mottling and pigmentary changes at the macula. Nonetheless, investigations were undertaken including extensive serologic studies de monstrating only a mild B12 deficiency with corresponding elevated methylmalonic acid. It was recommended that she increase her supplementation of her B12 and follow locally with ongoing recommendations to keep track of the same. In addition, an incidental finding of a modest size aneurysm was found on CAT scans performed to investigate causes of her vision loss. This was addressed surgically with Carly with excellent result. In the interval, the patient has had ongoing difficulties with her vision. She reports progressive frustration with the clarity of her vision. She reports that this affects her reading more than distance vision, but thinks that this is affecting both eyes. The patient denies significant headaches, although endorses only occasional headaches. She also had brief episodes of diplopia which were otherwise self- limited. It is unclear whether or not this is monocular or binocular. The patient denies significant changes in her overall health outside of the aneurysm surgery, which she tolerated well. She denies any history of memory difficulties and her friend who accompanied her to this visit today endorses that the patient's memory is quite good and has not noticed any concernsrelated to same. However, the patient cannot really describe much beyond the difficulties that she is having and simply states that she just wants her glasses to be better, although multiple attempts at the same have yielded no improvement and repeat visual flower suggest a scotoma in each eye that is enlarging, as such, the patient returns for followup and further investigation. The ocular history, medical history, surgical history, social history, family history, medications and allergies are all unchanged except as noted above and documented in the electronic health record. The neuro-ophthalmic examination found the patient to be communicative, cooperative, quite anxious, but otherwise appropriate for testing. Visual acuities with her current correction were 20/40-2 in the right eye without pinhole improvement, but refractive refinement to 20/25; 20/400 in the left eye with pinhole improvement to 20/350 and no clear refractive refinement. However, when tested with numbers instead of letters, the patient achieved only 20/50 minus acuity with her current correction in the right eye and achieved 20/60 -2 in the left. Color vision showed similar discrepancies with only 5/11 correct pseudoisochromatic plates in the right eye, unable to see even the control plate in the left eye; however, with both eyes tested together, the patient was able to identify all of the color plates, but for a single letter on a double plate, but required additional time and only achieved this by tracing the tracing the numbers in the air above the test plates. 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 The pupils were equal in size and did not demonstrate a relative afferent pupillary defect. External examination of the eyes and orbits was normal with perhaps some degree of dermatochalasia. The lids were in normal position and showed no lid lag or twitch. Examination of extraocular motility showed no strabismus. Ductions were full. There were choppy pursuit motor and persistent normal saccades with no nystagmus. Eye care tonometry at 0921 hours was 10 mmHg in the right eye, 14 mmHg in the left eye. Slit lamp examination revealed rosacea arcus, well-placed posterior chamber intraocular lenses with clear corneal incisions in each eye. Automated flower were performed with amoderate degree of technical error. The right eye showed a dense paracentral scotoma with a mean deviation score of -3.86 dB with a foveal threshold of 36 dB. The left eye showed a similar pattern, paracentral scotoma with a mean deviation score of -4.93 dB and a foveal threshold of 10. Dilated stereoscopic (indirect) fundoscopy revealed relatively normal optic nerves with perhaps trace pallor of each. Cup-to-disc ratio 0.3. There is mottling and hard drusen at the macula with pigmentary changes. The vessels are mildly attenuated and the mid peripheral retina relatively unremarkable. Spectral domain OCT nerve fiber layer analysis showed no clear thinning or edema at the disks and similar to that seen previously, there is significant macular thinning in each eye. Analysis of the RNFL suggests that this is most dramatically affected. FORMULATION: This is a 78-year-old woman seen for followup neuro-ophthalmic evaluation due to worsening vision. The patient has a longstanding history of macular degeneration the extent to which this has been evaluated or may account for the patient's finding is not entirely clear. The patient reportsprevious history of polymyalgia rheumatica and was on steroids for a period of time, but has not been on this for over a year and denies other symptoms to suggest an association. When last seen, she was found to be functionally B12 deficient. By all accounts, this has been repeated. The patient was followed for the same. Alternate etiologies were not discovered. The patient has had an interval progression, whether this is strictly retinal in etiology, that is primary macular process or optic nerve process is not entirely clear. I am also uncertain as to whether or not there is some degree of cognitive component given the discrepancies between what the patient sees when even comparing between letters and numbers in her ability to trace things, although I did not discover a clear simultagnosia and the patient's visual folwer do not suggest a pattern typically seen with posterior cortical atrophy. There may be some component of cognitive piece contributing here as well. I have recommended and ordered additional serologic studies including repeat nutritional laboratories. We will obtain a visual evoked potential and ERG to try to better localize the dysfunction. I haveasked that the patient see my colleague, Dr Babin, in retina. I will plan on seeing the patient thesame day and we will determine additional steps pending the results of these evaluations. Please do not hesitate to contact me with any further questions or concerns. 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 Cannot SERVICES rule out Atypical ANCA (A-ANCA). No titer performed, ANCA screen is negative. Results were obtained with the INOVA NOVA Lite ANCA ki t by indirect immunofluorescence. Specimen Blood specimen (specimen) - Blood Performing Organization Address City/State/ZIP Code Phon e Number [facility] [address] [place] [address] SERVICES (ABNORMAL) COMPLETE BLOOD COUNT AND DIFFERENTIAL (12/18/2018 12:03 EDT) Pathologist Sig nature WBC 4.64 4.0 - 12.4 [facility]critical access hospital LABORATORY SERVICES RBC 4.67 3.86 - 5.04 [facility]critical access hospital LABORATORY SERVICES Hemoglobin 14.2 11.6 - 15.2 [facility] gm/dl LABORATORY SERVICES HCT 43.9 34.9 - 44.4 % [facility] SERVICES MCV 94 81 - 98 fl [facility] SERVICES MCH 30.4 26.7 - 33.3 pg [facility] SERVICES MCHC 32.3 32.1 - 35.9 [facility] gm/dl LABORATORY SERVICES RDW-CV 13.0 <14.7 % [facility] SERVICES RDW-SD 44.4 <50.4 fl [facility] SERVICES PLT 226 141 - 377 K/[facility] LABORATORY SERVICES MPV 9.3 (L) 9.5 - 12.7 fl [facility] SERVICES Neutrophils 61.9 % [facility] SERVICES Lymphocytes 26.7 % [facility] SERVICES Monocytes 9.3 % [facility] SERVICES Eosinophils 1.3 % [facility] SERVICES Basophils 0.6 % [facility] SERVICES Immature Grans 0.2 % [facility] SERVICES ABS Neutrophils 2.87 2.20 - 8.85 [facility]critical access hospital LABORATORY SERVICES ABS Lymphs 1.24 1.09 - 3.30 [facility] LABORATORY SERVICES ABS Monocytes 0.43 0.1 - 0.8 /[facility] LABORATORY SERVICES ABS Eosinophils 0.06 0.03 - 0.61 [facility] LABORATORY SERVICES ABS Basophils 0.03 0.01 - 0.11 [facility] LABORATORY SERVICES ABS Immature Grans 0.01 0 - 0.06 [facility] LABORATORY SERVICES Type of Diff: Automated [facility] SERVICES Specimen Blood specimen (specimen) - Blood Performing Organization Address City/State/ZIP Code Phon e Number [facility] [address] [place] [address] SERVICES VITAMIN A, S (12/18/2018 12:03 EDT) Vitamin A 59.7 32.5 - 78.0 [facility] Comment: mcg/dL LABORATORY (Note) SERVICES . ADDITIONAL INFORMATION ------ This test was developed and its performance characteri stics determined by [facility] in a manner consistent with CLIA requirements. This test has not been cleared or approv ed by the U.S. Food and Drug Administration. Performed by: [facility] Labs: [facility] [address], [place] [address] Specimen Blood specimen (specimen) - Blood Performing Organization Address [facility] e Number [facility] [address] [place] [address] SERVICES VITAMIN E, SERUM (12/18/2018 12:03 EDT) Alpha- Tocopherol 13.5 5.5 - 17.0 [facility] (Vitamin E) Comment: mg/L [facility] (Note) SERVICES . ADDITIONAL INFORMATION ------ This test was developed and its performance characteri stics determined by [facility] in a manner consistent with CLIA requirements. This test has not been cleared or approv ed by the U.S. Food and Drug Administration. Performed by: [facility] Labs: [facility] [address], [place] [address] Specimen Blood specimen (specimen) - Blood Performing Organization Address [facility] e Number [facility] [address] [place] [phone] SERVICES VITAMIN B12 (12/18/2018 12:03 EDT) Pathologist [facility] nature Vitamin B-12 229 211 - 911 pg/ml [facility] SERVICES Specimen Blood specimen (specimen) - Blood Performing Organization Address [facility] e [facility] LABORATORY [address] [place] [address] SERVICES (ABNORMAL) METHYLMALONIC ACID (12/18/2018 12:03 EDT) Methylmalonic Acid 0.69 (H) <=0.40 [facility] Comment: nmol/mL CENTER (Note) LABORATORY In this sample, the concentration of methylmalonic aci d SERVICES (MMA) was elevated. This finding is likely related to vitamin B12 deficiency. . ADDITIONAL INFORMATION ------ This test was developed and its performance characteri stics determined by [facility] in a manner consistent with CLIA requirements. This test has not been cleared or approv ed by the U.S. Food and Drug Administration. Performed or Referred by: 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, nonruptured Macular degeneration of both eyes, unspe cified type Scotoma involving central area of both e yes Scotoma involving central area in visual field documented in this encounter Eye Exam Visual Acuity #1 (Snellen - Linear) Right eye Left eye Dist cc 20/40 -2 20/400 Dist ph cc NI 20/350 Near cc J3 J16 Correction: Glasses, Contacts Visual Acuity #2 (Snellen - numbers) Right eye Left eye Dist cc 20/50 -2 20/60 -2 Dist ph cc NI NI Tonometry (icare, 9:21) Right eye Left eye Pressure 10 14 Pupils Dark Light Right eye 3 2.5 Left eye 3 2.5 Visual Flower Right eye Left eye Full Full Extraocular Movement Right eye Left eye Full Full Neuro/Psych Oriented x3: Yes Mood/Affect: Normal Amsler Right eye Left eye Wavy lines Wavy lines-hard to s ee Color Right eye Left eye Ishihara 08/03 pt unable to see ivory t plate Stereo Fly: - Circles: 04/03 Lan secs Slit Lamp Exam Right eye Left eye Lids/Lashes Rosacea Rosacea Conjunctiva/Sclera Trace Injection, No LG Stain 1+ Injectio n, No LG Stain Cornea Arcus senilis, Clear corneal Arcus senil is, Clear corneal incision, No Stain incision, No Stain Anterior Chamber Deep and quiet Deep and quiet Iris No TI No TI Lens Posterior chamber intraocular Posterior chamber intraocular lens lens Fundus Exam Right eye Left eye Disc trace temporal pallor full, subtle pallo r C/D Ratio 0.3 0.2 Macula Mottling, Drusen, Hard drusen, pigment M ottling, Drusen, Hard drusen, pigment Vessels Normal Normal Periphery Normal Normal Wearing Rx Sphere Cylinder [employer] Add Right eye -1.25 +1.25 180 +2.50 Left eye +0.25 +1.00 178 +2.50 Type: PAL Manifest Refraction (Auto) Sphere Cylinder [employer] Dist VA Right eye -1.50 +1.50 005 20/25 Left eye +0.75 +1.25 180 NI AR 1 with letter AR 2with numbers Care Teams Performance Improvement Manager Relationship Specialty Start Date End Date Raquel Martin PA-C PCP - General 08/28/17 [address] [place] [phone] documented as of this encounter
--- OUTSIDE RECORDS SUMMARY | 2021-11-18 18:24 | XMS_ITS | Encounter Summary ---
:1940 Author Organization [facility] Address [address] [place] [address] Care Team Providers Name Role Phone Raquel Martin PA-C Primary Care Provider [phone] Reason for Visit Reason Onset Date Comments Other 08/20/2019 lab results Encounter Details Date Type Department Care Team Description 08/20/2019 Telephone [facility] Sam Ryan Othe r (lab results) Ophthalmology - [place] in [address] [facility] [address] [place] [phone] (Wo rk) Social History Tobacco Use Types Packs/Day Years Used Date Former Smoker Quit: 08/29/19 07 Smokeless Tobacco: Never Used Alcohol Use Standard Drinks/Week Comments No 0 (1 standard drink = 0.6 oz pure alcoho l) Sex Assigned at Date Recorded Not on file COVID-19 Exposure Response Date Recorded In the last month, have you been in contact with No / Unsure 08/13/2019 10:32 EDT someone who was confirmed or suspected to have Coronavirus / COVID-19? documented as of this encounter Functional Status [...] making decisions? documented as of this encounter Miscellaneous Notes Telephone Encounter - Jasmyne Rubio COA - 08/20/2019 1610 EDT Patient called to check lab results from tests ordered at last visit w/Dr. Ryan. Called [facility] where patient had labs done - not back yet but will fax to us when they get results. documented in this encounter Plan of Treatment Not on filedocumented as of this encounter Visit Diagnoses Not on filedocumented in this encounter Care Teams City Tax Auditor Relationship Specialty Start Date End Date Raquel Martin PA-C PCP - General 08/28/17 [address] [place] [address] documented as of this encounter
--- OUTSIDE RECORDS SUMMARY | 2021-11-18 18:24 | XMS_ITS | Encounter Summary ---
:1940 Author Organization [facility] Address [address] [place] [address] Care Team Providers Name Role Phone Raquel Martin PA-C Primary Care Provider [phone] Reason for Visit Reason Comments Follow-up Yearly f/u - Age-related mac ular degeneration Encounter Details Date Type Department Care Team Description 10/12/2020 Office Visit [facility] Kayla Ryan MD Ophthalmology - [place] [address] [place] [id number] [address] [place], [place] [address] [phone] Social History Tobacco Use Types Packs/Day Years [...] making decisions? documented as of this encounter Progress Notes Sam Ryan MD - 10/12/2020 0959 EDT Chief Complaint Patient presents with ??? Follow-up Yearly f/u - Age-related macular degeneration HPI The patient is a 80 y.o. female with age-related macular degeneration of both eyes here for completeexam. No significant vision changes reported. she has no eye pain, double vision, or new flashes/floaters. She is taking OcuVite AREDS daily and using artificial tears PRN Right Eye: Glare or Light Sensitivity, Problem with Night Vision, Blurred Vision, Tearing Left Eye: Glare or Light Sensitivity, Problem with Night Vision, Blurred Vision, Tearing Visual Aid: Glasses Current Rx Age Location: Pain: 0 - No pain Quality: Severity: Duration: Timing: Lasts: Context: Pt here for follow up visit. She reports vision mostly stable as far as she can tell, with no new floaters or flashes, and no eye pain. SHe has some tearing on & off. Modifying factors: uses AT's PRN Associated Signs & Symptoms: taking ocuvite vits daily Attestation: ROS Constitutional: NL ENT/Mouth NL Cardiovascular: High Blood Pressure Respiratory: (COPD) Gastrointestinal: NL Genitourinary: NL Musculoskeletal: NL (PMR) Integumentary: NL Neurologic: (s/p cerebral aneurysm) Psychiatric: NL Endocrine: NL Hematologic: NL Immunologic: Drug Allergy Physician Relations Manager: NL Exposures: None Other: Attestation: Base Eye Exam Visual Acuity (Snellen - Linear) Right Left Dist cc 20/80 -3 CF at 3' Tonometry (Applanation, 13:34) Right Left Pressure 17 15 Pupils Dark Light APD Right 4 3 None Left 4 3 None Visual Flower (Counting fingers) Right Left Full Full Extraocular Movement Right Left Full Full Neuro/Psych Oriented x3: Yes Mood/Affect: Normal Dilation Both eyes: Tropicamide 1%, Phenylephrine 2.5% @ 13:34 Slit Lamp and Fundus Exam Slit Lamp Exam Right Left Lids/Lashes Normal Normal Conjunctiva/Sclera White and quiet White and quiet Cornea Clear Clear Anterior Chamber Deep and quiet Deep and quiet Iris Round and reactive Round and reactive Lens Posterior chamber intraocular lens, Open posterior capsule Posterior chamber intraocular lens,anterior capsular phimosis, trace posterior capsular opacification Fundus Exam Right Left Vitreous Posterior vitreous detachment Posterior vitreous detachment Disc Normal Peripapillary atrophy C/D Ratio 0.25 0.2 Macula Geographic atrophy mostly nasal to fovea, some drusen, no hemorrhage Geographic atrophy involving the fovea, no hemorrhage Vessels Normal Normal Periphery Normal Normal Refraction Wearing Rx Sphere Cylinder [place] Add Right -1.50 +1.50 179 +2.25 Left +0.25 +1.00 179 +2.25 Manifest Refraction (Auto) Sphere Cylinder [place] Right -1.75 +1.25 006 Left -0.75 +1.25 135 DIAGNOSTIC TESTING/PROCEDURES: OCT, Retina - OU - Both Eyes Indication: Age-related macular degeneration OCT macula: Right: signal strength: 8/10, normal foveal contour, window defect, drusen, no intra/subretinal fluid Left: signal strength: 8/10, foveal thinning, window defect, drusen, no intra/subretinal fluid (poorfixation) IMPRESSION & PLAN: 1. Age-related macular degeneration, both eyes Right: intermediate/ Advanced non-exudative macular degeneration without subfoveal involvement Left: Advanced non-exudative macular degeneration with subfoveal involvement -Recommend regular use of Amsler grid -Recommend AREDS 2 formula supplement 1 cap twice daily -Return 6-8 months with OCT macula, BOTH eyes and Fundus autofluorescence photos or sooner with changes 2. Posterior vitreous detachment, both eyes Stable, monitor periodically 3. Posterior capsular opacification, left eye -not visually significant -monitor I have reviewed the patient's past medical, family, social and surgical history. I have also reviewed the patient's medications, allergies, and problem list. I performed my own HPI and have reviewed the [facility]'s ROS as well. I completed this exam personally. Sam Ryan MD I am scribing for Sam Ryan MD, while he is personally performing the service. PATRICIA Gage Patient Education Topic: Age-related macular degeneration Method: Verbal Taught to: Patient Barriers: None Outcomes: independent Signature: Sam Ryan MD documented in this encounter Plan of Treatment Not on filedocumented as of this encounter Procedures Procedure Name Priority Date/Time Associated Diagnosis Comme nts OCT, RETINA - OU - Routine 10/12/2020 14:17 Nonexudative Resul ts for this BOTH EYES EDT age-related macular procedur e are in degeneration, left the resul ts eye, advanced section. 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 documented in this encounter Results OCT, RETINA - OU - BOTH EYES (10/12/2020 14:17 EDT) Specimen Narrative [facility] POINT OF CARE - 10/12/2020 14:17 E DT Indication: Age-related macular degeneration OCT macula: Right: signal strength: 8/10 , normal foveal contour, window defect, drusen, no intra/subretinal flui d Left: signal strength: 8/10, foveal thin glenda, window defect, drusen, no intra/subretinal fluid (poor fixation) Performing Organization Address City/State/ZIP Code Phon e Number [facility] POINT OF CARE documented in this encounter Visit Diagnoses Diagnosis Nonexudative age-related macular degener ation, left eye, advanced atrophic with subfoveal involvement - Primary Advanced atrophic nonexudative age-relat ed macular degeneration of right eye without subfoveal involvement PVD (posterior vitreous detachment), carmen ateral PCO (posterior capsular opacification), left After-cataract, unspecified documented in this encounter Eye Exam Visual Acuity (Snellen - Linear) Right eye Left eye Dist cc 20/80 -3 CF at 3' Tonometry (Applanation, 13:34) Right eye Left eye Pressure 17 15 Pupils Dark Light APD Right eye 4 3 None Left eye 4 3 None Visual Flower (Counting fingers) Right eye Left eye Full Full Extraocular Movement Right eye Left eye Full Full Neuro/Psych Oriented x3: Yes Mood/Affect: Normal Dilation Both eyes: Tropicamide 1%, Phenylephrine 2.5% @ 13:34 Slit Lamp Exam Right eye Left eye Lids/Lashes Normal Normal Conjunctiva/Sclera White and quiet White and quiet Cornea Clear Clear Anterior Chamber Deep and quiet Deep and quiet Iris Round and reactive Round and reactive Lens Posterior chamber intraocular Posterior chamber intraocular lens, Open posterior capsule lens, anter ior capsular phimosis, trace posterior caps ular opacification Vitreous Posterior vitreous detachment Posterior vitreous detachment Fundus Exam Right eye Left eye Disc Normal Peripapillary atroph y C/D Ratio 0.25 0.2 Macula Geographic atrophy mostly nasal to Geogr aphic atrophy involving the fovea, fovea, some drusen, no hemorrhage no hem orrhage Vessels Normal Normal Periphery Normal Normal Wearing Rx Sphere Cylinder [place] Add Right eye -1.50 +1.50 179 +2.25 Left eye +0.25 +1.00 179 +2.25 Manifest Refraction (Auto) Sphere Cylinder [place] Right eye -1.75 +1.25 006 Left eye -0.75 +1.25 135 Care Teams Toll Test Worker Relationship Specialty Start Date End Date Raquel Martin PA-C PCP - General 08/28/17 [address] [place] [phone] documented as of this encounter
--- OUTSIDE RECORDS SUMMARY | 2021-11-18 18:24 | XMS_ITS | Encounter Summary ---
:1940 Author Organization [facility] Address [address] [place] [address] Care Team Providers Name Role Phone Raquel Martin PA-C Primary Care Provider [phone] Encounter Details Date Type Department Care Team Description 12/20/2018 Orders Only [facility] Sohail Chaudhry thy (Primary Ophthalmology - Paddy Vasquez MD Dx) [place] [address] [place] [address] [place], [address] [place] [address] (Wo rk) Social History Tobacco [...] Unspecified retinal disorder documented in this encounter Care Teams Hand Ironer Relationship Specialty Start Date End Date Raquel Martin PA-C PCP - General 08/28/17 [address] [place] [address] documented as of this encounter
--- OUTSIDE RECORDS SUMMARY | 2021-11-18 18:24 | XMS_ITS | Encounter Summary ---
:1940 Author Organization [facility] Address [address] [place] [address] Care Team Providers Name Role Phone Raquel Martin PA-C Primary Care Provider [phone] Reason for Visit Reason Comments Macular Degeneration Complete exam for Macular de generation, PCO - left eye and PVD's both eyes Encounter Details Date Type Department Care Team Description 08/23/2021 Office Visit [facility] Kayla Ryan MD Ophthalmology - [place] in [address] [place] [phone] [address] [place], [place] [address] [phone] Social History Tobacco Use Types Packs/Day Years [...] encounter Progress Notes Sam Ryan MD - 08/23/2021 1030 EDT Chief Complaint Patient presents with ??? Macular Degeneration Complete exam for Macular degeneration, PCO - left eye and PVD's both eyes HPI The patient is a 81 y.o. female here for follow up of macular degeneration/Posterior capsular opacification, left. She reports vision has been stable with no new floaters or flashes, no eye pain & no double vision. Right Eye: Blurred Vision, Glare or Light Sensitivity Left Eye: Blurred Vision, Glare or Light Sensitivity Visual Aid: Glasses Current Rx Age 4 years Location: Pain: 0 - No pain Quality: Severity: Duration: Timing: Lasts: Context: She reports vision has been stable. She uses artifical tears as needed. She has been using Ocuvite as directed. No new floaters, flashes or pain in the eyes. Modifying factors: Associated Signs & Symptoms: Attestation: ROS Constitutional: NL ENT/Mouth NL Cardiovascular: High Blood Pressure Respiratory: NL Gastrointestinal: NL Genitourinary: NL Musculoskeletal: Muscle Pain, NL Integumentary: NL Neurologic: NL Psychiatric: NL Endocrine: NL Hematologic: NL Immunologic: Drug Allergy Electrician Manager: Exposures: None Other: Attestation: Base Eye Exam Visual Acuity (Snellen - Linear) Right Left Dist cc 20/80 -3 CF at 3' Dist ph cc NI NI Correction: Glasses She does not want new glasses Tonometry (Applanation, 10:52) Right Left Pressure 14 13 Pupils Pupils Dark APD Right PERRL 2 None Left PERRL 2 None Visual Flower (Counting fingers) Right Left Full Full Extraocular Movement Right Left Full Full Neuro/Psych Oriented x3: Yes Mood/Affect: Normal Dilation Both eyes: Phenylephrine 2.5%, Tropicamide 1% @ 10:54 Slit Lamp and Fundus Exam Slit Lamp [...] detachment Disc Normal Peripapillary atrophy C/D Ratio 0.2 0.2 Macula Geographic atrophy mostly nasal to fovea, some drusen, pigment mottling, no hemorrhage Geographic atrophy involving the fovea, drusen, no hemorrhage Vessels Normal Normal Periphery Normal Normal Refraction Wearing Rx Sphere Cylinder [place] Add Right -1.50 +1.50 179 +2.25 Left +0.25 +1.00 179 +2.25 Manifest Refraction Sphere Cylinder [place] Right -1.75 +1.00 005 Left +0.50 +1.25 130 DIAGNOSTIC TESTING/PROCEDURES: IMPRESSION & PLAN: 1. Age-related macular degeneration, both eyes Right:??intermediate/??Advanced non-exudative macular degeneration without subfoveal involvement Left:??Advanced non-exudative macular degeneration with subfoveal involvement -discussed calling [facility] (She has worked with them in the past and plans to reach out to them again) -Recommend regular use of Amsler grid -Recommend AREDS 2 formula supplement 1 cap twice daily -Return??8-10 months complete with Fundus autofluorescence??photos??or sooner with changes 2. Posterior capsular opacification, left eye -not visually significant -monitor 3. Posterior vitreous detachment, both eye(s) Stable, monitor periodically I have reviewed the patient's past medical, family, social and surgical history. I have also reviewed the patient's medications, allergies, and problem list. I performed my own HPI and have reviewed the tech's ROS as well. I completed this exam personally. Sam Ryan MD I am scribing for Sam Ryan MD, while he is personally performing the service. Jasmyne Rubio, PATRICIA Patient Education Topic: macular degeneration, [facility] - assistance Method: Verbal Taught to: Patient Barriers: None Outcomes: independent Signature: Sam Ryan MD documented in this encounter Plan of Treatment Not on filedocumented as of this encounter Procedures Procedure Name Priority Date/Time Associated Diagnosis Comme nts COLOR FUNDUS Routine 08/23/2021 11:41 Nonexudative Results for this PHOTOGRAPHY - OU - EDT age-related macular pr ocedure are in BOTH EYES degeneration, left the resul ts eye, advanced section. 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 Performing Organization Address City/State/ZIP Code Phon e Number [facility] POINT OF CARE documented in this encounter Visit Diagnoses Diagnosis Nonexudative age-related macular degener ation, left eye, advanced atrophic with subfoveal involvement - Primary Advanced atrophic nonexudative age-relat ed macular degeneration of right eye without subfoveal involvement PVD (posterior vitreous detachment), carmen ateral PCO (posterior capsular opacification), left After-cataract, unspecified documented in this encounter Historical Medications This list may reflect changes made after this encounter. Medication Sig Dispensed Refills Start Date End Date digoxin (LANOXIN) 125 mcg Take 5 mcg by mouth 0 (0.125 mg) tablet daily. metoprolol TARtrate Take 50 mg by mouth 2 0 (LOPRESSOR) 50 mg tablet times daily. added in this encounter Eye Exam Visual Acuity (Snellen - Linear) Right eye Left eye Dist cc 20/80 -3 CF at 3' Dist ph cc NI NI Correction: Glasses She does not want new glasses Tonometry (Applanation, 10:52) Right eye Left eye Pressure 14 13 Pupils Pupils Dark APD Right eye PERRL 2 None Left eye PERRL 2 None Visual Flower (Counting fingers) Right eye Left eye Full Full Extraocular Movement Right eye Left eye Full Full Neuro/Psych Oriented x3: Yes Mood/Affect: Normal Dilation Both eyes: Phenylephrine 2.5%, Tropicami de 1% @ 10:54 Slit Lamp Exam Right eye Left eye [...] Disc Normal Peripapillary atroph y C/D Ratio 0.2 0.2 Macula Geographic atrophy mostly nasal to Geogr aphic atrophy involving the fovea, fovea, some drusen, pigment drusen, no h emorrhage mottling, no hemorrhage Vessels Normal Normal Periphery Normal Normal Wearing Rx Sphere Cylinder [place] Add Right eye -1.50 +1.50 179 +2.25 Left eye +0.25 +1.00 179 +2.25 Manifest Refraction Sphere Cylinder [place] Right eye -1.75 +1.00 005 Left eye +0.50 +1.25 [facility] Care Teams Assemblyman Or Woman Relationship Specialty Start Date End Date Raquel Martin PA-C PCP - General 08/28/17 [address] [place] [phone] documented as of this encounter
--- OUTSIDE RECORDS SUMMARY | 2021-11-18 18:24 | XMS_ITS | Encounter Summary ---
:1940 Author Organization [facility] Address [address] [place] [address] Care Team Providers Name Role Phone Raquel Martin PA-C Primary Care Provider [phone] Reason for Visit Reason Onset Date Comments Other 12/10/2018 Encounter Details Date Type Department Care Team Description 12/10/2018 Telephone [facility] [place], Sohail Vasquez, Other Ophthalmology - [address], MD [address] [phone] [facility] [address] [place] [address] (Wo rk) Social History Tobacco [...] this encounter Miscellaneous Notes Telephone Encounter - Maddison Kerns - 12/11/[address] Barreto's office is calling regarding the fax they sent to Dr. Chaudhry yesterday. Please call them. Telephone Encounter - Maddison Kerns - 12/10/[address] Marii Barreto's office just faxed to the [facility] information for Dr. Chaudhry to review and then callDr. Barreto back. documented in this encounter Plan of Treatment Not on filedocumented as of this encounter Visit Diagnoses Not on filedocumented in this encounter Care Teams Manager Web Relationship Specialty Start Date End Date Raquel Martin PA-C PCP - General 08/28/17 [address] [place] [address] documented as of this encounter
--- OUTSIDE RECORDS SUMMARY | 2021-11-18 18:24 | XMS_ITS | Encounter Summary ---
:1940 Author Organization [facility] Address [address] [place] [address] Care Team Providers Name Role Phone Raquel Martin PA-C Primary Care Provider [phone] Reason for Visit Reason Onset Date Comments Appointment Related 12/18/2018 Encounter Details Date Type Department Care Team Description 12/18/2018 Telephone [facility] Sohail Chaudhry ent Related Neurophysiology - [facility] MD Pedro Cullen [address] [place] [address] [place], [address] [place] [address] (Wo rk) Social History Tobacco [...] this encounter Miscellaneous Notes Telephone Encounter - Renetta Franco - 12/19/2018 0812 EDT Need order for eyedrops on ERG order. documented in this encounter Plan of Treatment Not on filedocumented as of this encounter Visit Diagnoses Not on filedocumented in this encounter Care Teams Business Management Analyst Relationship Specialty Start Date End Date Raquel Martin PA-C PCP - General 08/28/17 [address] [place] [phone] documented as of this encounter
--- OUTSIDE RECORDS SUMMARY | 2021-11-18 18:24 | XMS_ITS | Encounter Summary ---
:1940 Author Organization [facility] Address [address] [place] [address] Care Team Providers Name Role Phone Raquel Martin PA-C Primary Care Provider [phone] Encounter Details Date Type Department Care Team Description 02/16/2020 Travel Social History Tobacco Use Types Packs/Day Years Used Date Former Smoker Quit: 08/29/19 07 Smokeless Tobacco: Never Used Alcohol Use Standard Drinks/Week Comments No 0 (1 standard drink = 0.6 oz pure alcoho l) Sex Assigned at Date Recorded Not on file COVID-19 Exposure Response Date Recorded In the last month, have you been in contact with No / Unsure 02/16/2020 10:23 EST someone who was confirmed or suspected to [...] on filedocumented in this encounter Care Teams Residential Property Manager Relationship Specialty Start Date End Date Raquel Martin PA-C PCP - General 08/28/17 [address] [place] [phone] documented as of this encounter
--- OUTSIDE RECORDS SUMMARY | 2021-11-18 18:24 | XMS_ITS | Encounter Summary ---
:1940 Author Organization [facility] Address [address] [place] [address] Care Team Providers Name Role Phone Raquel Martin PA-C Primary Care Provider [phone] Reason for Visit Reason Comments Follow-up Yearly f/u ARMD Encounter Details Date Type Department Care Team Description 02/16/2020 Office Visit [facility] Kayla Ryan MD Ophthalmology - [place] [address] [place] [address] [address] [place] [address] [address] [place], [place] [address] [phone] Social History Tobacco Use Types Packs/Day Years [...] encounter Progress Notes Sam Ryan MD - 02/16/2020 1030 EST Chief Complaint Patient presents with ??? Follow-up Yearly f/u ARMD HPI The patient is a 79 y.o. female here for follow up of Age-related macular degeneration. No vision changes reported, but feels newer glasses are not working well. Still having trouble reading. she has no eye pain, double vision, or new flashes/floaters. There is some tearing. Right Eye: Tearing, Blurred Vision Left Eye: Tearing, Blurred Vision Visual Aid: Glasses Current Rx Age Location: Pain: 0 - No pain Quality: Severity: Duration: Timing: Lasts: Context: Pt here for ARMD f/u visit. She reports vision has been stable, blurry as it has been with difficulty reading. She has some tearing, no other irritation or pain and she does not have any new floaters or flashes. Modifying factors: Associated Signs & Symptoms: Attestation: ROS Constitutional: NL ENT/Mouth NL Cardiovascular: High Blood Pressure Respiratory: (asthma, emphasema) Gastrointestinal: Heartburn Genitourinary: NL Musculoskeletal: NL Integumentary: NL Neurologic: NL Psychiatric: NL Endocrine: NL Hematologic: NL Immunologic: Drug Allergy Student Life Vice President: NL Exposures: None Other: Attestation: Base Eye Exam Visual Acuity (Snellen - Linear) Right Left Dist cc 20/80 -2 CF at 3' Dist ph cc 20/70- Correction: Glasses Tonometry (Applanation, 11:14) Right Left Pressure 14 17 Pupils Pupils Dark Light APD Right PERRL 4.5 3.5 None Left PERRL 4.5 3.5 None Visual Flower (Counting fingers) Right Left Full Full Extraocular Movement Right Left Full Full Neuro/Psych Oriented x3: Yes Mood/Affect: Normal Dilation Both eyes: Tropicamide 1%, Phenylephrine 2.5% @ 11:17 Slit Lamp and Fundus Exam Slit Lamp Exam Right Left Lids/Lashes Normal Normal Conjunctiva/Sclera White and quiet White and quiet Cornea Clear Clear Anterior Chamber Deep and quiet Deep and quiet Iris Round and reactive Round and reactive Lens Posterior chamber intraocular lens, Open posterior capsule Posterior chamber intraocular lens,anterior capsular phimosis Fundus Exam Right Left Vitreous Posterior vitreous detachment Normal Disc Normal Peripapillary atrophy C/D Ratio 0.3 0.2 Macula Geographic atrophy mostly nasal to fovea, no hemorrhage Geographic atrophy mostly nasal to fovea, no hemorrhage Vessels Normal Normal Periphery Normal Normal Refraction Wearing Rx Sphere Cylinder [place] Add Right -1.50 +1.50 179 +2.25 Left +0.25 +1.00 179 +2.25 Manifest Refraction Sphere Cylinder [place] Dist VA Right -1.75 +1.25 009 20/50-2 Left DIAGNOSTIC TESTING/PROCEDURES: Fundus Photos - OU - Both Eyes Indication: Dry macular degeneration Fundus/disc photo: Right: geographic atrophy without significant change on Fundus autofluorescence photos. Left: geographic atrophy without significant change on Fundus autofluorescence photos. IMPRESSION & PLAN: 1. Age-related macular degeneration, both eyes Intermediate/advanced non-exudative, right Advanced non-exudative with subfoveal involvement, left -Continue regular use of Amsler grid -Continue AREDS 2 formula supplement 1 cap twice daily -Return in about 8 months with Fundus autofluorescence photos BOTH eyes or sooner with changes -Try +3.00 OTC readers for near 2. Posterior vitreous detachment, right eye Stable, monitor periodically 3. Pseudophakia, both eyes Stable, observe I have reviewed the patient's past medical, [...] Name Priority Date/Time Associated Diagnosis Comme nts FUNDUS PHOTOS - OU Routine 02/16/2020 11:59 Nonexudative Resul ts for this - BOTH EYES EST age-related macular procedur e are in degeneration, left the resul ts eye, advanced section. atrophic with subfoveal involv ement Intermediate stage nonexudative age-related macular degeneration of right eye documented in this encounter Results FUNDUS PHOTOS - OU - BOTH EYES (02/16/2020 11:59 EST) Specimen Narrative [facility] POINT OF CARE - 02/16/2020 11:[address] Indication: Dry macular degeneration Fundus/disc photo: Right: geographic atr ophy without significant change on Fundus autofluorescence photos. Left: geographic atrophy without signifi cant change on Fundus autofluorescence photos. Performing Organization Address City/State/ZIP Code Phon e Number [facility] POINT OF CARE documented in this encounter Visit Diagnoses Diagnosis Nonexudative age-related macular degener ation, left eye, advanced atrophic with subfoveal involvement - Primary Intermediate stage nonexudative age-rela ivis macular degeneration of right eye documented in this encounter Historical Medications This list may reflect changes made after this encounter. Medication Sig Dispensed Refills Start Date End Date beta-carotene,A,-vits Take by mouth daily. 0 C,E/mins (OCUVITE ORAL) added in this encounter Eye Exam Visual Acuity (Snellen - Linear) Right eye Left eye Dist cc 20/80 -2 CF at 3' Dist ph cc 20/70- Correction: Glasses Tonometry (Applanation, 11:14) Right eye Left eye Pressure 14 17 Pupils Pupils Dark Light APD Right eye PERRL 4.5 3.5 None Left eye PERRL 4.5 3.5 None Visual Flower (Counting fingers) Right eye Left eye Full Full Extraocular Movement Right eye Left eye Full Full Neuro/Psych Oriented x3: Yes Mood/Affect: Normal Dilation Both eyes: Tropicamide 1%, Phenylephrine 2.5% @ 11:17 Slit Lamp Exam Right eye Left eye Lids/Lashes Normal Normal Conjunctiva/Sclera White and quiet White and quiet Cornea Clear Clear Anterior Chamber Deep and quiet Deep and quiet Iris Round and reactive Round and reactive Lens Posterior chamber intraocular Posterior chamber intraocular lens, Open posterior capsule lens, anter ior capsular phimosis Vitreous Posterior vitreous detachment Normal Fundus Exam Right eye Left eye Disc Normal Peripapillary atroph y C/D Ratio 0.3 0.2 Macula Geographic atrophy mostly nasal to Geogr aphic atrophy mostly nasal to fovea, no hemorrhage fovea, no hemorrhag e Vessels Normal Normal Periphery Normal Normal Wearing Rx Sphere Cylinder [place] Add Right eye -1.50 +1.50 179 +2.25 Left eye +0.25 +1.00 179 +2.25 Manifest Refraction Sphere Cylinder [place] Dist VA Right eye -1.75 +1.25 009 20/50-2 Left eye Care Teams Brusher Tender Relationship Specialty Start Date End Date Raquel Martin PA-C PCP - General 08/28/17 [address] [place] [phone] documented as of this encounter
--- OUTSIDE RECORDS SUMMARY | 2021-11-18 18:24 | XMS_ITS | Encounter Summary ---
:1940 Author Organization [facility] Address [address] [place] [address] Care Team Providers Name Role Phone Raquel Martin PA-C Primary Care Provider [phone] Encounter Details Date Type Department Care Team Description 08/13/2019 Travel Social History Tobacco Use Types Packs/Day [...] on filedocumented in this encounter Care Teams Canceling And Cutting Control Clerk Relationship Specialty Start Date End Date Raquel Martin PA-C PCP - General 08/28/17 [address] [place] [phone] documented as of this encounter
--- OUTSIDE RECORDS SUMMARY | 2021-11-18 18:24 | XMS_ITS | Encounter Summary ---
:1940 Author Organization [facility] Address [address] [place] [address] Care Team Providers Name Role Phone Raquel Martin PA-C Primary Care Provider [phone] Reason for Visit Reason Onset Date Comments Appointment Related 02/16/2020 Encounter Details Date Type Department Care Team Description 02/16/2020 Telephone [facility] Debby Polo, [place] ointment Related Neurosurgery - [facility] RN [address] [place] [address] Social History Tobacco Use Types Packs/Day Years [...] this encounter Miscellaneous Notes Telephone Encounter - Debby Polo RN - 02/25/2020 1341 EST No calls were made to the patient from Neurosurgery scheduling. elephone Encounter - Debby Polo RN - 02/16/2020 1414 EST The patient thought she had a missed call from Neurosurgery on her phone. documented in this encounter Plan of Treatment Not on filedocumented as of this encounter Visit Diagnoses Not on filedocumented in this encounter Care Teams Catcher Helper Relationship Specialty Start Date End Date Raquel Martin PA-C PCP - General 08/28/[address] [place] [phone] documented as of this encounter
--- OUTSIDE RECORDS SUMMARY | 2021-11-18 18:24 | XMS_ITS | Encounter Summary ---
:1940 Author Organization [facility] Address [address] [place] [address] Care Team Providers Name Role Phone Raquel Martin PA-C Primary Care Provider [phone] Reason for Visit Reason Onset Date Comments Update 02/06/2019 Encounter Details Date Type Department Care Team Description 02/06/2019 Telephone [facility] Sohail Chaudhry, Update Ophthalmology - [facility] 111 [facility] [address] [phone] [place], [address] [place] [address] (Wo rk) Social History Tobacco [...] Notes Telephone Encounter - Maddison Kerns - 02/06/[address] Chaudhry mentioned at her visit on 01/22/19 that perhaps the [employer] could get jo-ann good magnifying glass. How does she go about getting the magnifying glass? Also, she has an appointment on July 28, [address] Tej Ryan in the [place] office. She'd like [facility], to call her back. documented in this encounter Plan of Treatment Not on filedocumented as of this encounter Visit Diagnoses Not on filedocumented in this encounter Care Teams Mule Tender Relationship Specialty Start Date End Date Raquel Martin PA-C PCP - General 08/28/[address] [place] [phone] documented as of this encounter
--- OUTSIDE RECORDS SUMMARY | 2021-11-18 18:24 | XMS_ITS | Encounter Summary ---
:1940 Author Organization [facility] Address [address] [place] [address] Care Team Providers Name Role Phone Raquel Martin PA-C Primary Care Provider [phone] Reason for Visit Reason Onset Date Comments Appointment Related 01/23/2019 Encounter Details Date Type Department Care Team Description 01/23/2019 Telephone [facility] Sohail Chaudhry ent Related Ophthalmology - Paddy Vasquez MD [address] [phone] [facility] [address] [place] [address] (Wo rk) Social History Tobacco [...] this encounter Miscellaneous Notes Telephone Encounter - Gary Barcenas - 01/23/2019 0844 EDT She would like to know if she could see dr Obrien in [place]? She cannot see Dr Trejo will not take on any new patients. Unless she is surgical. She says that she just cannot make it to [place] anymore. She loves you, you are very wonderful to her. She would like to continue to see a retinia specialist. documented in this encounter Plan of Treatment Not on filedocumented as of this encounter Visit Diagnoses Not on filedocumented in this encounter Care Teams Metal Tube Cutter Relationship Specialty Start Date End Date Raquel Martin PA-C PCP - General 08/28/17 [address] [place] [phone] documented as of this encounter
--- OUTSIDE RECORDS SUMMARY | 2021-11-18 18:24 | XMS_ITS | Encounter Summary ---
:1940 Author Organization [facility] Address [address] [place] [address] Care Team Providers Name Role Phone Raquel Martin PA-C Primary Care Provider [phone] Reason for Visit Reason Onset Date Comments Other 01/14/2019 Encounter Details Date Type Department Care Team Description 01/14/2019 Telephone [facility] Is[place], Sohail Vasquez, Other Ophthalmology - [facility] 111 [facility] [address] [phone] [place], [address] [place] [address] (Wo rk) Social History Tobacco [...] this encounter Miscellaneous Notes Telephone Encounter - Luis Alberto Dimas RN - 01/22/2019 0736 EDT Patient is scheduled to see Dr Chaudhry and Dr Baibn today. Luis Alberto Dimas RN 01/22/2019 7:36 elephone Encounter - Luis Alberto Dimas RN - 01/20/[address] Chaudhry for update on this. Luis Alberto Dimas RN 01/20/2019 10:27 elephone Encounter - Judah Corbett - 01/14/2019 1446 EDT Patient is calling to ask if Dr. Chaudhry has received the results from the VEP and ERG tests. She would like these notes as well as her blood work sent to her primary care doctor. documented in this encounter Plan of Treatment Not on filedocumented as of this encounter Visit Diagnoses Not on filedocumented in this encounter Care Teams Fishing Rod Mechanic Relationship Specialty Start Date End Date Raquel Martin PA-C PCP - General 08/28/[address] [place] [phone] documented as of this encounter
--- OUTSIDE RECORDS SUMMARY | 2021-11-18 18:24 | XMS_ITS | Encounter Summary ---
:1940 Author Organization [facility] Address [address] [place] [address] Care Team Providers Name Role Phone Raquel Martin PA-C Primary Care Provider [phone] Reason for Visit Reason Onset Date Comments Update 01/27/2019 Encounter Details Date Type Department Care Team Description 01/27/2019 Telephone [facility] Sohail Chaudhry, Update Ophthalmology - [facility] 111 [facility] [address] [phone] [place], [address] [place] [address] (Wo rk) Social History Tobacco [...] this encounter Miscellaneous Notes Telephone Encounter - Roseline Marte RN - 02/11/2019 1637 EST Called patient who said that mentioned something to her about the blind organization and how they may have some nice magnifying glasses for her since hers is old and she can't see out of it anymore. She couldn't remember who to contact. She was also wanting her last visit notes but Dr. Chaudhry's note is not signed. Her release of information has been received and is scanned into her chart. Please have Dr. Chaudhry sign his note from 01/22. Patient was given the number for the [place] [employer] # [phone] and said that she will start there to see if they canhelp her and if they can't she will call back. Is there another number that Dr. Chaudhry would like herto call instead? Telephone Encounter - Luis Alberto Dimas RN - 02/11/[address] Chaudhry is looking for more information about the magnifying glass. Luis Alberto Dimas RN 02/11/2019 8:19 elephone Encounter - Roseline Marte RN - 02/07/2019 1105 EST Patient called back and was assisted in helping her fill out the release of information form. elephone Encounter - Roseline Marte RN - 02/07/2019 0942 EST Called patient back who said that she is not in front of form but when she gets home she will call back. Message about magnifying glass placed on Dr. Chaudhry's desk. elephone Encounter - Maddison Kerns - 02/03/2019 0819 EST Patient received the form [facility] sent to her. It is too complicated for her to fill out (she is unsure which areas to fill out). In the past she has received the notes from her PCP's office and she is going to ask for a copy from them. If [facility] has any questions, she can call her back. elephone Encounter - Roseline Marte RN - 01/28/[address] Rodriguez said that patient can take oral B12 if she would like once daily. It is water soluble andshe will just void it out. Called patient and updated. Explained to patient that she will also need to fill out a records release to have notes sent to her. Form printed out and mailed to her with fax number and address on where to send it back too. elephone Encounter - Roseline Marte RN - 01/28/[address] Rodriguez who said that patients primary is aware. Dr. Rodriguez said that patient can follow up with Dr. Ryan in [place]. Called patient to update. Patient went to primary care office and received her B12 shot yesterday. She is wondering if she can also take oral B12 complex as well. She would like to know if she could have Dr. Babin and Dr. Chaudhry's notes from 01/22/19 mailed to her. Address verified. elephone Encounter - Roseline Marte RN - 01/27/2019 0928 EST Message given to Dr. Rodriguez to advise. elephone Encounter - Maddison Kerns - 01/27/2019 0831 EST Patient is starting her B12 today. Dr. Chaudhry said the B12 lab test in the lab has a little more to it because of her eye problem. She'dlike to discus this with someone and make sure that her PCP knows what the normal level of B12 is for her. Is there someone she could see closer to [place], [place] ? [facility], gave her some names of doctors that see patients in [place]. Does she needs to see a retina specialist? Can see see Dr. Colunga or Dr. Ryan? She'd like to get established with someone closerto home and she's like an safety officer. If that is OK, who sets up the appointment? Does Dr. Chaudhry have a preference where she is seen? Who does she need to follow up with in six months? documented in this encounter Plan of Treatment Not on filedocumented as of this encounter Visit Diagnoses Not on filedocumented in this encounter Care Teams Retort Or Condenser Press Operator Relationship Specialty Start Date End Date Raquel Martin PA-C PCP - General 08/28/17 [address] [place] [phone] documented as of this encounter
--- OUTSIDE RECORDS SUMMARY | 2021-11-18 18:24 | XMS_ITS | Encounter Summary ---
:1940 Author Organization [facility] Address [address] [place] [address] Care Team Providers Name Role Phone Raquel Martin PA-C Primary Care Provider Reason for Referral Laboratory Services (Routine) - New Request Specialty Diagnoses / Procedures Referred By Contact Refer red To Contact Diagnoses Low vitamin B12 level Sam Ryan MD Procedures VITAMIN B12 [address] [place] [phone] Referral ID Status Reason Start Date Expiration Date Visits V isits Requested Authorized [id number] New Request 08/13/2019 1 1 aboratory Services (Routine) - New Request Specialty Diagnoses / Procedures Referred By Contact Refer red To Contact Diagnoses Low vitamin B12 level Sam Ryan MD Procedures METHYLMALONIC ACID [address] [place] [address] Referral ID Status Reason Start Date Expiration Date Visits V isits Requested Authorized [id number] New Request 08/13/2019 1 1 Reason for Visit Reason Comments Macular Degeneration 6 month follow up per Dr Loco lundberg for Macular degeneration Encounter Details Date Type Department Care Team Description 08/13/2019 Office Visit [facility] Kayla Ryan MD Ophthalmology - [place] in [address] [place] [address] [address] [place] [address] [place] [address] [phone] Social History Tobacco Use Types Packs/Day Years [...] encounter Progress Notes Sam Ryan MD - 08/13/2019 1045 EDT Chief Complaint Patient presents with ??? Macular Degeneration 6 month follow up per Dr Chaudhry for Macular degeneration HPI The patient is a 79 y.o. female here for follow up of macular degeneration and possible B12 deficiency. She reports that her vision has gotten somewhat worse in the left eye. She has no pain in the eyes. She has been getting Vitb12 injections. She is having difficulty with reading, and her current glasses do not seem to help. Right Eye: Tearing, Blurred Vision Left Eye: Tearing, Blurred Vision Visual Aid: Glasses Current Rx Age 6 mo to 1 yr Location: Pain: 0 - No pain Quality: Severity: Duration: Timing: Lasts: Context: She is here today for a follow up per Dr Chaudhry for Macular degeneration. She sees foggy at times. She has been using artifical tears for dry eyes. Both eyes still tear a little. She has new glasses from the past [address] Barreto. Modifying factors: Associated Signs & Symptoms: Attestation: ROS Constitutional: NL ENT/Mouth NL Cardiovascular: High Blood Pressure Respiratory: NL Gastrointestinal: NL Genitourinary: NL Musculoskeletal: NL Integumentary: NL Neurologic: NL Psychiatric: NL Endocrine: NL Hematologic: NL Immunologic: Drug Allergy Machine Preservative Filler: Exposures: None Other: Attestation: Base Eye Exam Visual Acuity (Snellen - Linear) Right Left Dist cc 20/50 +1 CF at 3' Dist ph cc NI NI Correction: Glasses Tonometry (Applanation, 11:00) Right Left Pressure 15 19 Pupils Pupils Dark APD Right PERRL 3 None Left PERRL 3 None Visual Flower (Counting fingers) Right Left Full Full Extraocular Movement Right Left Full Full Neuro/Psych Oriented x3: Yes Mood/Affect: Normal Dilation Both eyes: Phenylephrine 2.5%, Tropicamide 1% @ 11:01 Additional Tests Color Right Left Ishihara 06/04 04/06 Slit Lamp and Fundus Exam Slit Lamp Exam Right Left Lids/Lashes Normal Normal Conjunctiva/Sclera White and quiet White and quiet Cornea Clear Clear Anterior Chamber Deep and quiet Deep and quiet Iris Round and reactive Round and reactive Lens Posterior chamber intraocular lens, Open posterior capsule Posterior chamber intraocular lens,anterior capsular phimosis Fundus Exam Right Left Vitreous Normal Normal Disc Normal Normal C/D Ratio 0.3 0.3 Macula mottling and atrophy mostly nasal to fovea mottling and atrophy mostly nasal to fovea Vessels Normal Normal Periphery Normal Normal Refraction Wearing Rx Sphere Cylinder Kotlik Add Right -1.50 +1.50 179 +2.25 Left +0.25 +1.00 179 +2.25 Age: 6m DIAGNOSTIC TESTING/PROCEDURES: OCT, Retina - OU - Both Eyes Indication: Age-related macular degeneration OCT macula: Right: signal strength: 9/10, normal foveal contour, no intra/subretinal fluid, RPE atrophy Left: signal strength: 8/10, normal foveal contour, no intra/subretinal fluid, RPE atrophy Color Fundus Photography - OU - Both Eyes Right Eye 30??. Macula. Progression has no prior data. Macula findings include geographic atrophy, retinal pigment epithelium abnormalities. Vessel findings include normal observations. Left Eye 30??. Macula. Progression has no prior data. Macula findings include geographic atrophy, retinal pigment epithelium abnormalities. Vessel findings include normal observations. IMPRESSION & PLAN: 1. Age-related macular degeneration, both eyes Right: Intermediate non-exudative macular degeneration Left: Advanced non-exudative macular degeneration with subfoveal involvement -Recommend regular use of Amsler grid -Start AREDS 2 formula supplement 1 cap twice daily (discussed) -Return 6 months with fundus photo and autofluorescence eyes or sooner with changes -Referral to [facility], recommend single vision reading glasses and good lighting to read 2. Low vit B12 Will get labs to remeasure this level. I have reviewed the patient's past medical, family, social and surgical history. I have also reviewed the patient's medications, allergies, and problem list. I performed my own HPI and have reviewed the tech's ROS as well. I completed this exam personally. Sam Ryan MD Patient Education Topic: Age-related macular degeneration Method: Verbal Taught to: Patient Barriers: None Outcomes: independent Signature: Sam Ryan MD documented in this encounter Plan of Treatment Scheduled Orders Name Type Priority Associated Diagnoses Order S chedule METHYLMALONIC ACID Lab Routine Low vitamin B12 level Ordered: 08/13/2019 VITAMIN B12 Lab Routine Low vitamin B12 level Ordere d: 08/13/2019 documented as of this encounter Procedures Procedure Name Priority Date/Time Associated Diagnosis Comme nts COLOR FUNDUS Routine 08/13/2019 12:51 Nonexudative Results for this PHOTOGRAPHY - OU - EDT age-related macular pr ocedure are in BOTH EYES degeneration, left the resul ts eye, advanced section. atrophic with subfoveal involv ement Intermediate stage nonexudative age-related macular degeneration of both eyes OCT, RETINA - OU - Routine 08/13/2019 12:50 Nonexudative Resul ts for this BOTH EYES EDT age-related macular procedur e are in degeneration, left the resul ts eye, advanced section. 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 Macula. Progression has no prior d supa. Macula findings include geographic atrophy, retinal pigment epit helium abnormalities. Vessel findings include normal observations. Left Eye 30??. Macula. Progression has no prior d supa. Macula findings include geographic atrophy, retinal pigment epit helium abnormalities. Vessel findings include normal observations. Performing Organization Address [facility]/ZIP Code Phon e Number [facility] POINT OF CARE [facility] OCT, RETINA - OU - BOTH EYES (08/13/2019 12:50 EDT) Specimen Narrative POINT OF CARE [facility] - 08/13/2019 12:50 E DT Indication: Age-related macular degeneration OCT macula: Right: signal strength: 9/10 , normal foveal contour, no intra/subretinal fluid, RPE atrophy Left: signal strength: 8/10, normal fove al contour, no intra/subretinal fluid, RPE atrophy Performing Organization Address [facility] Phon e Number [facility] POINT OF CARE POINT [facility] C[facility] documented in this encounter Visit Diagnoses Diagnosis Nonexudative age-related macular degener ation, left eye, advanced atrophic with subfoveal involvement - Primary Intermediate stage nonexudative age-rela ivis macular degeneration of both eyes Low vitamin B12 level Other B-complex deficiencies documented in this encounter Eye Exam Visual Acuity (Snellen - Linear) Right eye Left eye Dist cc 20/50 +1 CF at 3' Dist ph cc NI NI Correction: Glasses Tonometry (Applanation, 11:00) Right eye Left eye Pressure 15 19 Pupils Pupils Dark APD Right eye PERRL 3 None Left eye PERRL 3 None Visual Flower (Counting fingers) Right eye Left eye Full Full Extraocular Movement Right eye Left eye Full Full Neuro/Psych Oriented x3: Yes Mood/Affect: Normal Dilation Both eyes: Phenylephrine 2.5%, Tropicami de 1% @ 11:01 Color Right eye Left eye Ishihara 06/04 04/06 Slit Lamp Exam Right eye Left eye Lids/Lashes Normal Normal Conjunctiva/Sclera White and quiet White and quiet Cornea Clear Clear Anterior Chamber Deep and quiet Deep and quiet Iris Round and reactive Round and reactive Lens Posterior chamber intraocular Posterior chamber intraocular lens, Open posterior capsule lens, anter ior capsular phimosis Vitreous Normal Normal Fundus Exam Right eye Left eye Disc Normal Normal C/D Ratio 0.3 0.3 Macula mottling and atrophy mostly nasal to mot tling and atrophy mostly nasal to fovea fovea Vessels Normal Normal Periphery Normal Normal Wearing Rx Sphere Cylinder Kotlik Add Right eye -1.50 +1.50 179 +2.25 Left eye +0.25 +1.00 179 +2.25 Age: 6m Care Teams Cook Soup Relationship Specialty Start Date End Date Raquel Martin PA-C PCP - General 08/28/17 [address] [place] [id number] documented as of this encounter
--- OUTSIDE RECORDS SUMMARY | 2021-11-18 18:24 | XMS_ITS | Encounter Summary ---
:1940 Author Organization [facility] Address [address] [place] [address] Care Team Providers Name Role Phone Raquel Martin PA-C Primary Care Provider [phone] Encounter Details Date Type Department Care Team Description 12/30/2019 Lab Requisition [facility] Britt Kelsey for other Pathology & MD John general examination Laboratory Medicine [address] [place], [place] [address] [facility] [id number] [place] [id number] Social History Tobacco Use Types Packs/Day Years [...] Name Priority Date/Time Associated Diagnosis Comme nts SURGICAL PATHOLOGY Today 12/30/2019 8:18 EDT Encounter for o ther Results for this general examination procedur e are in the results section. documented in this encounter Results SURGICAL PATHOLOGY (12/30/2019 8:18 EDT) Final Diagnosis A. GALLBLADDER, CHOLECYSTECTOMY: [facility] EDICAL - Chronic cholecystitis and cholelithiasis. CENTER - Deeper sections x3 examined. LABORATORY - SEE COMMENT. SERVICES Diagnosis Comment Occupational Ther slides of jeison s case were reviewed at the gastrointestinal/liver intradepartmental consultation conference. (RW) [facility] SERVICES Attestation There was significant [facility] Electr onically resident/fellow CENTER signed by Ab navin Santos involvement in the LABORATORY Agnieszka Summers on diagnostic evaluation SERVICES 2019 at 1634 of this case. By the signature below, the attending physician certifies that they have personally conducted a gross and/or microscopic examination of the described specimens and rendered or confirmed the above diagnosis. Clinical History Biliary colic [facility] SERVICES Gross Description A. [facility] Received in formalin jaz d with proper patient identification (initials G, J) and gallbladder [id number] is an intact gallbladder with an attached segment of cystic duct (1.1 x 0.2 x 0.2 cm). A possible cystic duct lymph node is present. CENTER LABORATORY The serosa is smooth and gre en to salinas. The mucosa is dark green and velvety and the wall is 0.2 cm in thickness. There are 2 foci of denuded mucosa, 1 in the fundus and 1 adjacent to the cystic duct. Th SERVICES e cystic duct lumen is paten t and measures 0.7 cm in diameter. The cystic duct margin is inked black. Within the gallbladder body are 3 roughly spherical cholesterol stones (up to 1.0 cm in greatest dim ension). Adjacent to the cys tic duct lumen, a firm nodule (initially assumed to be a lymph node) was cut to reveal a pocket containing 4 miniscule yellow stones (no greater than 0.1 cm in greatest dimension). Three insurance healthcare representative section s and the en face cystic duct margin and the possible cystic duct lymph node are submitted in A1. Three additional sections of the gallbladder are submi tted in A2. Pedro Knox MD 12/31/2019 15:49 Resident/Fellow: Pedro Knox MD [facility] Performing Lab [facility] Scanned Images [facility] Specimen Tissue - Entire gallbladder (body struct ure) Performing Organization Address City/State/ZIP Code Phon e Number [facility] [address] [place] [address] SERVICES documented in this encounter Visit Diagnoses Diagnosis Encounter for other general examination documented in this encounter Care Teams Level Vial Inspector Relationship Specialty Start Date End Date Raquel Martin PA-C PCP - General 08/28/17 [address] [place] [address] documented as of this encounter
--- OUTSIDE RECORDS SUMMARY | 2021-11-18 18:24 | XMS_ITS | Encounter Summary ---
:1940 Author Organization [facility] Address [address] [place] [address] Care Team Providers Name Role Phone Raquel Martin PA-C Primary Care Provider Reason for Visit Reason Onset Date Comments Appointment Related 12/24/2018 Encounter Details Date Type Department Care Team Description 12/24/2018 Telephone [facility] Unknown, Appointme nt Related Neurophysiology - Main Provider, [place] [phone] [address] [facility] (Work) [place] [address] [phone] Social History Tobacco Use Types Packs/Day Years [...] this encounter Miscellaneous Notes Telephone Encounter - Madeline Santiago - 12/24/2018 0936 EDT Patient called to schedule the ERG- I let her know that Renetta who does the scheduling for this particular test is out this week and she should hear something next week. She stated that she has two appointments on 01/22 starting at 1pm that she was wondering if she would be able to do the test the same day but in the morning so that they would have a the results and she is also traveling over two hours to get here. documented in this encounter Plan of Treatment Not on filedocumented as of this encounter Visit Diagnoses Not on filedocumented in this encounter Care Teams Masking Machine Feeder Relationship Specialty Start Date End Date Raquel Martin PA-C PCP - General 08/28/17 [address] [place] [address] documented as of this encounter
--- OUTSIDE RECORDS SUMMARY | 2021-11-18 18:25 | XMS_ITS | Encounter Summary ---
:1940 Author Organization [facility] Address [address] [place] [address] Care Team Providers Name Role Phone Unavailable Primary Care Provider Unavailable Encounter Details Date Type Department Care Team Description 04/20/2009 Orders Only [facility] Samara Rubin MD Laboratory Services - [address] [place] [address] [place] [address] Social History Tobacco Use Types Packs/Day Years Used Date Never Assessed Sex Assigned at Date Recorded Not on file documented as of this encounter Plan of Treatment Not on filedocumented as of this encounter Procedures Procedure Name Priority Date/Time Associated Comments Diagnosis HPV DETECTION, HIGH Routine 04/20/2009 19:39 Resu lts for this RISK TYPES EST procedure are i n the results section. CYTOPATHOLOGY Routine 04/20/2009 0:00 Results for this EST procedure are i n the results section. documented in this encounter Results HUMAN PAPILLOMA VIRUS DNA TEST (04/20/2009 19:39 EST) Specimen Description Cervix, ThinPrep [facility] vial LAB Result Positive for one or more of HPV types 16,18,31,33,35,39,45,51,52,56,58,59, or 68. These ROWAN A LLEN high/intermediate risk HPV t ypes are associated with dysplasia and some cervical cancers. LAB Report Status Final [facility] 04/28/2009 LAB Specimen Performing Organization Address City/State/ZIP Code Phon e Number [facility] [address] [place] [address] SERVICES [facility] [address] [place] [address] CYTOPATHOLOGY (04/20/2009 0:00 EST) Pathology Report: CYTOPATHOLOGY REPORT ? ROWAN ALL EN ? LAB Reports generated via electr onic interface contain original data; ? however they are lacking the format of the original report. ? Caution should be taken when reading/interpreting unformatted reports. ? Name: ? REHAN FRITZ ? Accession #: ? [id number] ? : ? 1940 (Age: 68) ??F ?Collect Date: ? 04/20/2009 ? Location: ? [facility] ? Receive Date: ? 04/20/2009 ? Provider: ?SAMARA TIFFANY L MD ? Copy to: ? Specimen/Source: ? Pap Test, Cervix/Endocervix, ThinPrep Imaging System ? with manual evaluation ? Last Menstrual Period: ? Previous Gynecologic Patholo gy: ? SKYE III: 5/98 ? JESUS: 6/98 ? ASC-US: 6/03, 6/04, 12/04 ? HPV: + 6/04, 12/4 ? Treatment History: ? Colposcopy: 6/98 ? LEEP: 6/98 ? Other: ? HPVDX - HPV testing requeste d regardless of diagnosis on current ThinPrep Pap ?? test. ? SPECIMEN ADEQUACY ? Satisfactory for Eval uation ? - transformation zone compon ent present ? GENERAL CATEGORIZATION ? Negative for Intraepi thelial Lesion or Malignancy ? Document reviewed and electr onically signed by: ? Silvia [place], [place]( CP) ? Report Date: ??01/28/ 2010 10:14 ? End of Report ? Specimen Performing Organization Address City/State/ZIP Code Phon e Number [facility] [address] [place] [address] SERVICES [facility] [address] [place] [address] documented in this encounter Visit Diagnoses Not on filedocumented in this encounter
--- OUTSIDE RECORDS SUMMARY | 2021-11-18 18:25 | XMS_ITS | Encounter Summary ---
:1940 Author Organization [facility] Address [address] [place] [address] Care Team Providers Name Role Phone Raquel Martin PA-C Primary Care Provider [phone] Reason for Visit Reason Comments Eye Problem Visual field defect.?Here for CT scan review.?No eye pain, flashing, floaters.?Umberto nues to have darkening of vision centrally left eye.?Right eye edwardo joya. Encounter Details Date Type Department Care Team Description 09/14/2017 Office Visit [facility] Sohail Chaudhry, Ophthalmology - [facility] [address] [address] [place], [place] [address] (Wo rk) Social History Tobacco Use Types Packs/Day Years Used Date Former Smoker Quit: 08/29/19 07 Smokeless Tobacco: Never Used Alcohol Use Standard Drinks/Week Comments No 0 (1 standard drink = 0.6 oz pure alcoho l) Sex Assigned at Date Recorded Not on file documented as of this encounter Discharge Diagnoses Diagnosis H53.40 Unspecified visual field defects- H53.40[ICD-10-CM] H35.30 Unspecified macular degeneration (age-related)-H35.30[ICD-10-CM] documented in this encounter Discharge Disposition Disposition Code Departure Means Destination Auto Discharge documented in this encounter Progress Notes Sohail Chaudhry MD - 09/14/2017 1015 EDT This office note has been dictated. I spent a total of 25 minutes in face to face time with this patient today and 20 minutes of that time was spent in counseling and coordination of care as described in the progress note. Sohail Beltre MD - 09/14/2017 0000 EDT [facility] NEURO-OPHTHALMOLOGY PROGRESS / FOLLOWUP NOTE - 09/14/2017 Ms Gann is seen for followup neuro-ophthalmic evaluation because of a history of unexplained vision loss. 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 At that time, the patient was found to have slightly subnormal best corrected visual acuity in each eye as well as dyschromatopsia, which was worse in the left than the right eye. 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 Extensive serologic testing did reveal a low-normal B12 with an abnormal methylmalonic acid, suggestingfunctional B12 deficiency. The patient was also found to have an elevated homocysteine going along with the same. The remainder of her laboratory studies were unremarkable. I had recommended a CT of the brain and orbits in followup today. In the interval since the patient was last examined, she reports that her vision is unchanged. She struggled to try to get things clear with her current refraction and was anxious about coming to have a CT done. She feels that the right eye is unaffected and continues to appreciate a darkening of the vision in the left eye. The ocular history, medical history, surgical history, social history, family history, medications, allergies are all unchanged. The patient did have CT immediately prior to the examination today. This has not been formally interpreted, but does not show any clear lesion to account for the patient's visual field defects. Her visual acuities are stable. 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 I explained to the patient that my concern is that the functional B12 deficiency may be at play, although it is impossible to say for certain. I would recommend that she have high intensity replacement of the same as this mayallow for at least some degree of stabilization if not reversal of this vision loss. The patient does have complex eyes and macular degeneration may be at play here as well. However, given the testing performed last it is not unreasonable to suspect a metabolic etiology. I further explained that if her field defects and vision loss are indeed related to B12 deficiency, this may not be reversible, andif it is, it may take several months or more. I have advised that the patient not try to obtain updated refraction until such time if things have stabilized. She reports that, in fact, her old refraction works better than her current and if necessary, it may be advisable for her to that prescription put into her current glasses and otherwise I would simply wait a good three to six months to let things stabilize that is provided they do. Ultimately, if this is for macular degeneration, I would expectthat it progressed, however, I am hopeful that we have identified a reversible cause through intensive B12 supplementation. She at the very least may stabilize if not improve. I have asked that she return in six months for repeat testing. She knows to call sooner if things are worsening, and if thingshave improved at six months, she should simply call and cancel and follow up locally. Please do not hesitate to contact me with any further questions or concerns. Sohail Chaudhry MD Diplomate, the [place] [employer] net c developer Department of Ophthalmology NEURO-OPHTHALMOLOGY cc: Raquel Martin PA-C, [address] [address] documented in this encounter Plan of Treatment Not on filedocumented as of this encounter Visit Diagnoses Diagnosis Macular degeneration of both eyes, unspe cified type - Primary Visual field defect Visual field defect, unspecified documented in this encounter Historical Medications This list may reflect changes made after this encounter. Medication Sig Dispensed Refills Start Date End Date tiotropium (SPIRIVA WITH Inhale 18 mcg as 0 HANDIHALER) 18 mcg directed daily. inhalation capsule added in this encounter Eye Exam Visual Acuity (Snellen - Linear) Right eye Left eye Dist cc 20/20 -1 20/40 -2 Dist ph cc NI Correction: Glasses Neuro/Psych Oriented x3: Yes Mood/Affect: Normal Care Teams Cardiology Coordinator Relationship Specialty Start Date End Date Raquel Martin PA-C PCP - General 08/28/17 [address] [place] [address] documented as of this encounter
--- OUTSIDE RECORDS SUMMARY | 2021-11-18 18:25 | XMS_ITS | Encounter Summary ---
:1940 Author Organization [facility] Address [address] [place] [address] Care Team Providers Name Role Phone Raquel Martin PA-C Primary Care Provider [phone] Reason for Referral Radiology Services (Routine) - Receiving Office to Obtain Authorization Specialty Diagnoses / Procedures Referred By Contact Refer red To Contact Diagnoses Cerebral aneurysm, nonruptured Varsha Patrick, Procedures CT HEAD WO CONTRAST ANGEL [address] [place] [phone] Referral ID Status Reason Start Expiration Visits Visits Date Date Requested Authorized [id number] Receiving Office 11/16/2017 1 1 to Obtain Authorization ollow Up (Routine) - Authorization Not Required Specialty Diagnoses / Procedures Referred By Contact Refer red To Contact Neurosurgery Diagnoses Cerebral aneurysm, nonruptured Varsha Patrick, Yosef Shields PA-C PA-C [address] [place] [phone] Referral ID Status Reason Start Expiration Visits Visits Date Date Requested Authorized [id number] Authorization Specialty 1 1 Not Required Services 8 Required Question Answer Reason for Request: post op follow up Scheduling Comments (optional ? 4 weeks describe specific scheduling needs if applicable): Encounter Details Date Type Department Care Team Description 11/12/2017 - [facility] Dennis Henao Cerebra l aneurysm, 11/16/2017 Encounter Neurosurgery Unit MD Justyn nonruptured [address] [place] [address] [address] [phone] [address] [place], [facility], [facility] [address] [place] [address] Social History Tobacco Use Types Packs/Day Years Used Date Former Smoker Quit: 08/29/19 07 Smokeless Tobacco: Never Used Alcohol Use Standard Drinks/Week Comments No 0 (1 standard drink = 0.6 oz pure alcoho l) Sex Assigned at Date Recorded Not on file documented as of this encounter Last Filed Vital Signs Vital Sign Reading Time Taken Comments Blood Pressure 139/61 11/16/2017 0950 EDT Pulse 68 11/15/2017 1731 EDT Temperature 36.5 ??C (97.7 ??F) 11/16/2017 0950 EDT Respiratory Rate 17 11/16/2017 0950 EDT Oxygen Saturation 98% 11/16/2017 0950 EDT Inhaled Oxygen Concentration - - Weight 80.7 kg (178 lb) 11/14/2017 0200 EDT Height 166.4 cm (5' 5.51) 11/14/2017 0200 EDT Body Mass Index 29.16 11/14/2017 0200 EDT documented in this encounter Functional Status Functional Status Response [...] of a physical, mental, or emotional condition, do No 11/14/2017 you have difficulty doing errands alone such as visiting a doctor's office or shopping? (15 years old or older) Cognitive Status Response Date of Assessment Because of a physical, mental, or emotional condition, do No 11/14/2017 you have serious difficulty concentrating, remembering, or making decisions? (5 years old or older) documented as of this encounter Discharge Diagnoses Diagnosis I67.1 Cerebral aneurysm, nonruptured-I67 .1[ICD-10-CM] J44.9 Chronic obstructive pulmonary dise ase, unspecified-J44.9[ICD-10-CM] M35.3 Polymyalgia rheumatica-M35.3[ICD-1 0-CM] I10 Essential (primary) hypertension-I10 [ICD-10-CM] M54.9 Dorsalgia, unspecified-M54.9[ICD-1 0-CM] M71.9 Bursopathy, unspecified-M71.9[ICD- 10-CM] F41.9 Anxiety disorder, unspecified-F41. 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[ICD-10-CM] R41.0 Disorientation, unspecified-R41.0[ ICD-10-CM] Z88.2 Allergy status to sulfonamides sta tus-Z88.2[ICD-10-CM] Z79.82 bed bug exterminator (current) use of aspiri n-Z79.82[ICD-10-CM] documented in this encounter Discharge Summaries Varsha Patrick PA - 11/14/2017 1336 EDT Neurosurgery Discharge Summary Primary Care Provider: Raquel Martin Attending Physician: Dennis Henao MD Admit Date: 11/12/2017 Discharge Date: 11/16/2017 Disposition: Subacute Rehab Problems and Procedures Admitting Diagnosis: left pericallosal cerebral aneurysm Discharge Diagnosis: same Additional Problems Managed in the Hospital Active Hospital Problems Diagnosis Date Noted ??? Cerebral aneurysm, nonruptured 09/27/2017 Resolved Hospital Problems Diagnosis Date Noted Date Resolved No resolved problems to display. Principal Procedure: Bifrontal craniotomy for clip ligation of left pericallosal aneurysm Date: 11/12/2017 Secondary Procedures: None Patient did not have a stroke or TIA Hospital Course 77 y.o. female with pertinent past medical history significant for PMR, hypertension, chronic back pain, bursitis and a cerebral aneurysm was DOSA for a bifrontal craniotomy for clip ligation of a leftperiocallosal aneurysm on 11/12/[address] Henao. She tolerated the procedure well. Her post operative CT scan showed no hemorrhage and hypodensity in the left AUDRA territory consistent with retractionedema. On 11/14/2017, the patient was mildly confused with normal sodium, WBC and O2 sat. A repeat head CT showed expected post operative changes and a new vascular hyperdensity within the frontal lobesperhaps concerning for a high density thrombus. The patient was started on a 325 ASA for this. She will have a follow up scan at her post operative visit. Her confusion cleared. She was medically readyfor discharge on 11/16/2017 to subacute rehab. During the hospital stay, the patient was evaluated by physical and occupational therapy. They recommended subacute rehab. The patient's incision was closed with absorbable suture, which does not need removal. Allergies and Immunizations Allergies Allergen Reactions ??? Sulfa (Sulfonamide Antibiotics) Rash Pt is not really sure if she has an allergy or not, states it has been so long since she had it ??? Codeine Insomnia nervous ??? Erythromycin GI upset There is no immunization history on file for this patient. Transition of Care Plans Condition at Discharge Good Prognosis: good Assessment at Discharge Vital signs: Patient Vitals for the past 12 hrs: BP Heart Rate Resp Temp SpO2 O2 Flow Rate (L/min) O2 Device 11/16/17 0800 131/58 79 BPM - - - - - 11/16/17 0755 - 78 BPM 16 - 98 % 0 l/min - 11/16/17 0552 (!) 150/67 - 16 36.6 ??C (97.9 ??F) 93 % - Nasal cannula 11/16/17 0144 132/62 - - - - - - 11/16/17 0120 (!) 148/68 - 16 36.5 ??C (97.7 ??F) 97 % - Nasal cannula 11/15/17 2223 - - - - 96 % 1.5 l/min Nasal cannula 11/15/17 2200 - - - - (!) 64 % - None Discharge Medications: START taking these medications Sig acetaminophen 325 mg tablet Commonly known as: TYLENOL Take 2 Tabs by mouth every 4 hours as needed for Pain. docusate sodium 100 mg capsule Commonly known as: COLACE Take 1 Cap by mouth 2 times daily. enoxaparin 40 mg/0.4 mL injection Commonly known as: LOVENOX Inject 40 mg into the skin at bedtime. senna 8.6 mg tablet Commonly known as: SENOKOT Take 1 Tab by mouth 2 times daily. CHANGE how you take these medications Sig aspirin 325 mg EC tablet Start taking on: 11/17/2017 What changed: - medication strength - how much to take Take 1 Tab by mouth daily. CONTINUE taking these medications Sig ALBUTEROL INHL Inhale as directed as needed. lisinopril 2.5 mg tablet Commonly known as: PRINIVIL, ZESTRIL Take 2.5 mg by mouth daily. Multivitamins with Minerals tablet tablet Take 1 Tab by mouth daily. NIFEdipine XL 30 mg tablet Commonly known as: PROCARDIA-XL Take 30 mg by mouth daily. SPIRIVA WITH HANDIHALER 18 mcg inhalation capsule Generic drug: tiotropium Inhale 18 mcg as directed daily. Test results still pending from this admission None Relevant Studies During Admission CT: head Imaging Required Yes Modality: CT Interval: 1 month Last Lab Results at Discharge CBC: Lab Results Component Value Date WBC 6.65 11/15/2017 RBC 3.65 (L) 11/15/2017 HGB 11.2 (L) 11/15/2017 HCT 34.2 (L) 11/15/2017 MCV 94 11/15/2017 MCH 30.7 11/15/2017 MCHC 32.7 11/15/2017 PLT 181 11/15/2017 DIFFTYPE Automated 11/15/2017 SEDRATE 2 08/28/2017 Discharge Follow Up Appointments Scheduled with [facility] in the next 3 months Studies We Will Schedule Follow-up labs and tests Pre-Op Blood Bank Draw Complete by: Nov 12, 2017 (Approximate) Process Instructions: Blood Bank specimens collected for Preoperative procedures require a completed Preadmission Pre-op Blood Bank Requisition. Authorizing Provider: Carmen Rodriguez PA Appointments We Recommend but have not been Scheduled Follow up with Carmen Rodriguez PA-C in [address] head. GALILEO Stewart 11/14/2017 13:36 documented in this encounter Discharge Instructions Discharge Instr - Other OrdersVarsha Patrick PA - 11/16/2017 9:44 EDT POST- OPERATIVE INSTRUCTIONS FOLLOWING BRAIN SURGERY 1. Do not engage in strenuous activity. Do not drive a vehicle. You may be a passenger. 2. You may walk as much as you wish, but be careful not to overexert yourself. 3. Facial swelling will usually peak on the third day after surgery. You may apply ice covered with a cloth to your area of swelling for 20 minutes at a time. Do not place ice directly onto your eyelids but may apply it around the area. 4. Often patients will experience headaches or nausea following surgery. Avoid bending over to pick things up, as this may cause headache pain. Be sure to stay hydrated. Dehydration can bring on a headache or cause headache pain to become severe. Eating ice pops can help you stay hydrated when you don't feel like drinking fluids. If you get a headache, lay down with your head slightly elevated (on two pillows). You may take Tylenol or your prescribed pain medication. Please call our office if your headache pain increases in frequency or severity or does not go away. Please call 911 for complaint ofthe worst headache ever. 5. You may notice that you are more fatigued during your recovery. Be sure to pace yourself and nap as needed. Your energy should return within weeks after surgery. Be patient with yourself while healing. 6. If your skin ailyn or sutures were not removed before leaving the hospital, they should generally be removed in 10-14 days, unless instructed otherwise. Sutures may be removed by our office, your Primary Care Provider's office, or Emergency Room. Please call our office to discuss arrangements forsuture removal. 7. Please call if you develop any redness, swelling, or increased discomfort at the incision site. Please call if you have any drainage from the wound or fever. 8. Do not pick at your wound. You may gently wash the area with clear soap or baby shampoo on the third day following surgery. Please pat dry, no scrubbing and no washcloths. Do not use hydrogen peroxide on wound. Do not apply lotions or ointment to the incision. 9. You may have been prescribed steroids which help with the inflammation after surgery. It is very important to take these exactly as directed and not stop them suddenly unless directed to do so. 10. Continue taking steroids (Decadron, dexamethasone or prednisone) as prescribed at discharge, unless directed otherwise by your doctor. If you run out of medication without specifically being told to stop them, please contact our office immediately. 11. Steroids can cause side effects such as facial flushing, water retention, swelling in your legs and feet, agitation, anxiety, increased appetite, sleeplessness and increased heart rate. They can upset your stomach or irritate ulcers. Please call our office if you think you may be having side effects from the steroids or if you have questions. 12. You may have been prescribed anticonvulsant medication. Some medicines require blood tests to check the level of medicine in your body. Take these exactly as directed. Please call before you are out of medicine as you may need to continue these medications. These medicines can cause fatigue, confusion, dizziness, stomach upset, fever or rash which can be serious. Please call our office or your pharmacy immediately if you experience any of these symptoms for medical advice. 13. Please call 911 for complaint of slurred speech, loss of balance, confusion, problems moving an extremity, visual changes with a headache. Please call our office if you are having any episodes which you suspect may be a seizure such as numbness of an arm or leg, numb on one side of your face, uncontrollable twitching, a funny feeling, or ???zoning out?? where people cannot get your attention by talking to you. 14. Ensure patient safety during active seizure activity. If the patient is sitting or standing, layhim or her on the floor. If in bed , protect from falling., Roll the patient onto his or her side. Protect the patient's head. Loosen clothing. Do not place any objects in the mouth. Do not give the patient water, pills or food until fully alert. 15. Follow-up visit with your surgeon???s office should be made for three to four weeks post-surgery. 16. Please call our nurse with any questions regarding your recovery during hours 8 AM to 4 PM, Sunday through Sunday. Triage line [phone]. 17. After hours, there is always a doctor armed security professional for emergencies or go to your local hospital emergency department. Call our office within one week of discharge at or for an appointment or if any problems such as signs of infection or above symptoms. documented in this encounter Medications at Time of Discharge Medication Sig Dispensed Refills Start Date End Date acetaminophen (TYLENOL) Take 2 Tabs by mouth 0 325 mg tablet every 4 hours as needed for Pain. ALBUTEROL INHL Inhale as directed 0 as needed. lisinopril (PRINIVIL, Take 2.5 mg by mouth 0 ZESTRIL) 2.5 mg tablet daily. Multivitamins with Take 1 Tab by mouth 0 Minerals tablet tablet daily. NIFEdipine XL Take 30 mg by mouth 0 (PROCARDIA-XL) 30 mg daily. tablet tiotropium (SPIRIVA WITH Inhale 18 mcg as 0 HANDIHALER) 18 mcg directed daily. inhalation capsule aspirin 325 mg EC tablet Take 1 Tab by mouth 0 01/01/2018 daily. docusate sodium (COLACE) Take 1 Cap by mouth 0 12/18/2017 100 mg capsule 2 times daily. enoxaparin (LOVENOX) 40 Inject 40 mg into 0 11/1612/18/2017 mg/0.4 mL injection the skin at bedtime. senna (SENOKOT) 8.6 mg Take 1 Tab by mouth 0 10/2512/18/2017 tablet 2 times daily. documented as of this encounter Ordered Prescriptions Prescription Sig Dispensed Refills Start Date End Date acetaminophen (TYLENOL) Take 2 Tabs by 0 11/17/19 18 325 mg tablet mouth every 4 hours as needed for Pain. senna (SENOKOT) 8.6 mg Take 1 Tab by mouth 0 10/2512/18/2017 tablet 2 times daily. enoxaparin (LOVENOX) 40 Inject 40 mg into 0 11/1612/18/2017 mg/0.4 mL injection the skin at bedtime. docusate sodium (COLACE) Take 1 Cap by mouth 0 12/18/2017 100 mg capsule 2 times daily. aspirin 325 mg EC tablet Take 1 Tab by mouth 0 01/01/2018 daily. documented in this encounter Discharge Disposition Disposition Code Departure Means Destination Nursing Facility (Skilled) documented in this encounter Progress Notes Marisa Renteria, OT - 11/16/2017 1126 EDT [facility] Acute Therapies [facility] [place] ??? Occupational Therapy Discontinue/Discharge Note Date of Service: 11/17/2017 Precautions: ad suresh and Elevate HOB > 30 degrees SUBJECTIVE: Pt has been discharged OBJECTIVE: pt has been discharged Patient has been seen in occupational therapy since 11/14/17 fo Please refer to the occupational therapy notes for specifics on the patient's functional status and treatment sessions. Relevant Objective Findings: Body Functions and Performance Skills: Mental Functions: Specific mental functions Per OT note on 11/14 : Followed one step commands Cognition Pt questioned on the following information: Name (first, last) ++ (44) +++ Address (street +, apt - , city +, state+) Son (Arron) + Sister (Katey) + Location ([facility]) + Situation (Brain aneurysm) + Month - (September) Year - I don't know - Pt unable to see whiteboard across room with glasses on ?? Sensory Functions: Unable to evaluate due to limited cognitive status. Flinched on RUE during BP cuff inflation. ?? Neuro musculoskeletal and Movement Related Functions: Range of motion: Pt demonstrated B shoulder flexion to at least 90 bilaterally. BUE AROM WNL completed semifowler for shoulder flexion, external rotation (reaching behind head), elbow flexion/extension, pronation/supination ?? Skin and Related Structure Functions: Skin functions: dressing in place from surgery. ?? Areas of Occupation and Performance Skills: Basic Activities of Daily Living: Per OT notes of 11/15/17 Self-care: Functional mobility - transitioned semi-cortes to EOB with HOB elevated and cues for hand positioning and scooting to edge for feet to rest on floor, seated EOB > supine with cues for positioning. ?? Maintained sitting balance EOB to complete grooming, posterior pelvic tilt and kyphotic posture ?? Grooming: seated EOB with set-up assist to place all items on tray. Tasks very effortful for Pt, significant moaning/groaning throughout despite no reports of pain/discomfort ?? Oral care - supervision - Pt picked up toothpaste to initiate task, then stopped to ask, what is this? requiring confirmation before proceeding. Sequenced appropriately and attended to both sides of mouth using dominant L hand. Able to manipulate toothpaste lid with bilateral hands. ?? Face washing: modified independent - washed both sides of face with careful attention to avoid bandages on forehead. ?? LB dressing: seated EOB Pt initiated attempt to reach feet to change socks, however, fearful of LOB and with increased fatigue declined further participation at this time. ASSESSMENT: Rehan Gann is a 77 y.o. year old female who appropriate for OT intervention She has made progress in overall cognition and basic adl's in this setting . Rehan is currently functioning far below her baseline at which time she was living alone and independently. At this time, once medically stable, Rehan would be appropriate for admission to a subacute Rehab. ?? 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 Pt will demonstrate orientation to self, place, month, year and reason for admission consistently ?? Pt will move supine > edge of bed with supervision ?? Pt will groom, seated, with set up and no cues ?? Pt will complete ambulatory toilet transfer with min A ?? Pt will demonstrate ability to sustain attention to ADL task for 15 minutes ?? Pt will demonstrate ability to [facility] pants and slipper socks with min A ?? PLAN: Discontinue occupational therapy at [facility] acute care. Recommended Discharge Destination: Sub-acute rehabilitation Recommended Discharge Services: Occupational therapy at rehabilitation facility Recommended Discharge Equipment: To be determined by next care provider Pager: [phone] Marisa Renteria OT, 11/17/2017, 11:44 Romeo Tinoco, PT - 11/16/2017 1126 EDT [facility] Therapy Acute Therapies [facility] Physical Therapy Discontinue/Discharge Note Date of Service: 11/16/2017 Precautions: Up ad suresh SUBJECTIVE: N/A OBJECTIVE: Intervention Completed Today: No treatments rendered today due to: discharged to rehab facility Team Communication: N/A Patient has been seen in physical therapy since 11/13/17 for Therapeutic activities. In this reporting period 11/13/17 to 11/15/17 the patient has been seen by a physical therapist. Please refer to the physical therapy notes for specifics on the patient's functional status and treatment sessions. Relevant objective findings: CARDIOPULMONARY: Per 11/15/17 PT note: Vital signs were monitored and were stable throughout physical therapy session.Patient with expected vital sign response to activity. No verbal or non-verbal signs of poor tolerance to activity. BP 140's - 150's systolic throughout denies dizziness or lightheadedness ?? Denies discomfort or increase in discomfort with mobility, but behaviors do not support this. BALANCE, MOBILITY, AND GAIT: Per 11/15/17 PT note Therapeutic exercise: Patient in bed on my arrival. Supine AROM exercises performed as warm up for activity. Combination of verbal and visual cues needed for performance of tasks. Performed on bilateral LE Ankle pumps, heels slides and hip abduction 5 reps ?? Therapeutic Activity: Bed Mobility: this patient performed supine -> sit with supervision assist and verbal cues for sequencing and technique, right side of bed HOB up and rail bed features. ?? Sitting balance with close supervision ?? Transfers: patient performed sit -> stand transfer from edge of bed and chair with moderate assist of 1. ?? Bed to chair with moderate assist with no device via shuffle step transfer ?? Walker provided and patient marching in place with ability to clear feet from the floor for functional steps, 7 on each foot with minimal contact assist for support. High amounts of verbal cues for task performance. ?? Decreased activity tolerance noted as well as some confusion with task performance noted throughout session. ?? Patient sitting reclined in chair at end of session. Call cortes in reach. ASSESSMENT: Physical therapy services in this setting have been discontinued secondary to: Patient has been discharged from the hospital Physical Therapy Diagnosis: this patient s/p Bifrontal craniotomy for microsurgical clipping of a left pericallosal aneurysm presents with a PT diagnosis of decreased mobility with decreased activity tolerance. Physical Therapy Prognosis: Patient was appropriate for skilled PT evaluation and interventions in this setting. Her rate of progress was slow and impacted by confusion and decreased activity tolerance. Introduction of assistive device aided with support needed for foot clearance and functional steps,but given no use of device at baseline she would be expected to wean from this device longer term Asof last session she did not demonstrate the mobility level or tolerance to activity necessary for return to home with family assist and SARIKA was recommended. She has been discharged to this facility today. With improvement in pain and mentation she has good potential for steady gains and to meet her group home goal of discharge to home with her family after rehab. Please see below for progress made toward goals, unmet goals will be discontinued given discharge from this setting. Short-Term Goals: N/A ? Long-Term Goals: 1-2 weeks ?? The patient will be able to perform bed mobility with modified independence assist demonstrating appropriate sequencing/motor planning. Progressing, now discontinued ?? The patient will demonstrate vital signs in parameters with position changes. MET ?? The patient will be able to perform bed to chair transfers with modified independence while demonstrating an effective strategy for recovery of loss of balance. Progressing, now discontinued ?? The patient will be able to ambulate with supervision to modified independence with no loss of balance on level surfaces 100- 200 feet. Progressing, now discontinued ?? The patient and/or caregiver will be able to recall and demonstrate precautions/movement recommendations. Progressing, now discontinued ?? All of the above mobility goals will be performed with an oxygen saturation > 95%. MET ?? The patient will be able to perform stairs with supervision with home set up for rails. N/E PLAN: D/C Physical Therapy Recommended Discharge Destination: Sub-acute rehabilitation Recommended Discharge Services: Physical therapy at rehabilitation facility Recommended Equipment Needs: To be determined by next care provider Other recommendations: No other consults recommended at this time Pager: [phone] ROMEO SUAREZ PT 11/16/2017 12:24 Flor Kruse RN - 11/16/2017 0855 EDT Pt has bed offer at her first choice, [facility]. Pt will transfer via ambulance at 11:00 today. PASAR, COLST, and ambulance forms all placed with chart. Khris Swartz RT - 11/16/2017 0802 EDT Respiratory Consult/Progress Note Indications for Respiratory therapy: Home reg. Pt can't squeeze MDI Data Vitals: Heart Rate: 78 BPM, Resp: 16, SpO2: 98 % FIO2/O2 Device: O2 Flow Rate (L/min): 0 l/min, , O2 Device: Nasal cannula, RT Orders: Spiriva Daily Protocol Scoring: Bronchodilator/Inhalation Therapy Frequency Bronchodialator - Clinical Indications: Home regimen Breath Sounds: Any abnormal BS decreased Response: No change / no treatment Pulse: <100 Resp Rate: <18 SOB: None Total Score: 1 Comment:: home routine Airway Clearance Therapy Frequency Airway Clearance - Clinical Indications: No clinical indications Breath Sounds: Clear / diminished Sputum: Small (tsp) / None Consistency: None Cough Effort: Strong, non-productive Color: None Total Score: 0 Comment: Not indicated Hyperinflation Therapy Frequency Hyperinflation - Clinical Indications: No clinical indications Breath Sounds: Other Surgery: No X-Ray / Atelectasis: No O2 Requirements: 0-2 L above baseline Mobility Status: Mobile / at baseline Total: 2 Comment: IS at bedside Action/Events Respiratory events; 09:00 PT received Spiriva Response/Results Weaning and Toleration of treatments; Tolerated TX well Khris Singh, RT 11/16/17 Johnny Downs MD - 11/16/2017 0751 EDT Neurosurgery Progress Note 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 Henao, 11/12/17) 24/ Continued on IVFs Started on ASA 325mg No episodes of confusion Improved Neuro exam Subjective/ Oh hey here's the team! No complaints this AM. Objective/ Blood pressure (!) 150/67, pulse 68, temperature 36.6 ??C (97.9 ??F), temperature source Tympanic, resp. rate 16, height 166.4 cm (65.51), weight 80.7 kg (178 lb), SpO2 93 %. Temp: [36.5 ??C (97.7 ??F)-37.2 ??C (99 ??F)] () BP: (125-150)/(59-68) () Exam: Alert Verbalizes appropriately, fluently Oriented to self, [facility], October 2017 Follows commands x4 Extraocular movements intact Face symmetric Tongue midline Full strength bilateral upper extremities No drift Sensation intact in bilateral upper extremities (C5/C6/C7/C8 distributions) Full strength bilateral lower extremities Sensation intact in bilateral lower extremities (L4/L5/S1 distributions) Incision dressing clean/dry/intact Studies/ Na/K/Cl/CO2: 138/4.1/105/25 (11/15 602) WBC/Hgb/Hct/Plts: 6.65/11.2/34.2/181 (11/15 602) BUN/Cr/glu/ALT/AST/amyl/lip: 11/0.56/--/--/--/--/-- (11/15 602) Assessment/ Rehan Gann is a 77 y.o. female s/p bifrontal craniotomy for microsurgical clipping of a left pericallosal aneurysm. Initially confused post-operatively, now with baseline cognition according to friend who is at bedside. Continue working with therapies today. Medically ready for discharge. Plan/ Neurological - Q4H neuro checks, Analgesia - Acetaminophen, oxycodone Cardiovascular - SBP 100-160, ASA 325mg Respiratory - SpO2>92%, IS FEN/GI - Regular diet Hematological - Trend CBC Infectious - Trend Fever Curve and WBC Endocrinology - JOEL Consults - PT/OT Imaging - No further imaging at this time PPx - SCD/SELIN, Lovenox Activity - As tolerated Disposition - dispo to [facility] pending availability and acceptance Johnny Yeh MD Neurosurgery resident 11/16/2017 7:51 Page [id number] with questions Flor Kruse RN - 11/15/2017 1218 EDT Per discussion with PT pt will require [facility] stay after hospital prior to home with her sister. Met with pt and her friend for choice and consent for [facility] placement. Pt lives in [facility] and [facility]. Explained that if one of the two facilities in [facility] does not offer her a bed we would need to expand the search and she agrees with this, but would like [facility] attempted first. Pt's information sent to both [facility] facilities. Myranda Starks, OT - 11/15/2017 1152 EDT [facility] Rehabilitation Therapy Acute Therapies [facility] [place] ??? Occupational Therapy Encounter Note Date of Service: 11/15/2017 Subjective/Objective Subjective My son lives 2+ hours away. Objective Time: 1000 Total treatment time: 30 minutes. Timed code treatment minutes: 30 minutes Interventions included: Self-Care/Home Management (1 unit) Cognition (1 unit) Focus of session on continued assessment of cognition, UE ROM, and functional ADLs due to limited evaluation based on Pt status 11/14/2017 Cognition Pt questioned on the following information: Name (first, last) ++ (44) +++ Address (street +, apt - , city +, state+) Son (Arron) + Sister (Katey) + Location ([facility]) + Situation (Brain aneurysm) + Month - (September) Year - I don't know - Pt unable to see whiteboard across room with glasses on Followed one step commands with demonstration to complete BUE AROM assessment BUE AROM WNL completed semifowler for shoulder flexion, external rotation (reaching behind head), elbow flexion/extension, pronation/supination Pt reports no dizziness, lightheadedness with sitting EOB Vision - Pt reports no blurry vision, no double vision, some increased photophobia Self-care: Functional mobility - transitioned semi-cortes to EOB with HOB elevated and cues for hand positioning and scooting to edge for feet to rest on floor, seated EOB > supine with cues for positioning. Maintained sitting balance EOB to complete grooming, posterior pelvic tilt and kyphotic posture Grooming: seated EOB with set-up assist to place all items on tray. Tasks very effortful for Pt, significant moaning/groaning throughout despite no reports of pain/discomfort Oral care - supervision - Pt picked up toothpaste to initiate task, then stopped to ask, what is this? requiring confirmation before proceeding. Sequenced appropriately and attended to both sides of mouth using dominant L hand. Able to manipulate toothpaste lid with bilateral hands. Face washing: modified independent - washed both sides of face with careful attention to avoid bandages on forehead. LB dressing: seated EOB Pt initiated attempt to reach feet to change socks, however, fearful of LOB and with increased fatigue declined further participation at this time. Vital signs: Position Heart Rate (bpm) Blood Pressure (mmHG) Respiratory Rate (breaths/min) Oxygen Saturation SPO2 Liters of Oxygen Pre: semifowler 72 138/65 92% on room air NA Post: semifowler 71 148/63 92% on room air NA Patient/Family Education: Topic: Benefits of activity Role of OT Energy conservation D/C planning Safety awareness Learner: patient Method: verbal Barriers to Learning: recent alterations in mental status/cognition, though much improved in today'ssession Outcome: verbalized understanding and reinforcement needed / plan: Continue with OT Team Communication: With RN prior to and upon completion of session - informed of elevated BP Assessment/Plan Assessment Rehna presents with much more clarity related to cognition and improved alertness in participating in30 minute OT session. She was able to provide accurate information (based on chart review) for relevant personal details, however, continues to have difficulty with temporal details (month/year). She de monstrates increased capacity to complete limited BADL tasks with minimal direction, however, activity tolerance remains low. Pt is not safe or appropriate to d/c home alone and will benefit from [facility] when medically appropriate for d/c. 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 Procedures/ Bifrontal craniotomy for microsurgical clipping of a left pericallosal aneurysm (Dr. Henao, 11/12/17) Patient understands reason for admission: Yes PATIENT CONTACT INFO VERIFIED: Yes PATIENT ADDRESS VERIFIED: Yes LIVING ARRANGEMENTS AND ACCESSIBILITY ISSUES: Living Arrangements: Alone Levels: 1 Stairs to enter: 2 Bathroom located on bedroom level?: Yes What in home social supports are available to the patient? Friends / neighbors, Family member(s), Children Is 24/7 care available? Yes ADVANCED DIRECTIVES, POA &/or COLST IN PLACE: DIRECTIVES FOR FINANCES: Directive For Finances: No TRANSPORTATION: Transportation: Family CULTURAL, ADVENTISM and/or LANGUAGE factors affecting health care/discharge planning: Spiritual/Cultural Requests: (Caodaism) Any factors affecting health care/discharge planning?: No Insurance in Place: Yes Medical Insurance: Yes Type of insurance: Medicare, Medicaid Medicare type: A, B Medicaid Type: Community Referred to patient financial services: No DISCHARGE RISK ASSESSMENT: Polypharmacy, > 7 medications Total # selected above: Score of 1 - 2: This patient is at LOW RISK for re-hospitalization RAPT TOOL: Age: 66-77 Gender: Female Ambulation distance: 2 or more blocks (600ft) Gait device: None Community Services: Home health, MOW, SASH-none of one time a week Will you live with someone who will care for you?: Yes RAPT Tool Score: 10 Patient expects to be discharged to: Home with family and neighbors supporting her SBIRT: SASQ (Single Alcohol Screening Question) How many times in the past year have you had 4 or more drinks in a single day?: Never How many times in the past year have you used an illegal drug or used a prescription medication for non-medical reasons?: Never Intervention in place/initiated?: No, not indicated FUNCTIONAL STATUS: Activities patient requires assistance: None Assistive Device: None COMMUNITY RESOURCES/SUPPORTS: Primary Care Provider: Raquel Martin PCP Verified: Yes Specialists: Neurology (Opthomology, Neurosurgery) Type of Home Health Services: None DME Provider: None Pharmacy: [id number] - [place], [place] - [address] [place] [id number] Home Health: None Other: POST HOSPITAL TRANSITION PLAN: Met with pt and her neighbor while Rehan was resting in bed. Pt stateschuck is currently feeling sort of out of it pleasant and O/x3. Pt lives alone in a first floor apartment, her son lives 6 miles away and the neighbor at the bedside lives next door. Pt's sister Belkis is going to stay with patient after discharge. No CM needs identified at this time, will look to PT/OTrecommendations and assist with discharge needs if they arise. Becca Luo RN/CM #[id number] 11/15/2017 9:07 Romeo Suarez, PT - 11/15/2017 0723 EDT [facility] Therapy [facility] Physical Therapy Encounter Note Date of Service: 11/15/2017 Subjective/Objective SUBJECTIVE: I'm OK honey OBJECTIVE: Intervention completed today: Physical Therapy today at: 11:05 Total treatment time: 25 minutes. Timed code treatment minutes: 25 Vital signs were monitored and were stable throughout physical therapy session. Patient with expected vital sign response to activity. No verbal or non-verbal signs of poor tolerance to activity. BP 140's - 150's systolic throughout denies dizziness or lightheadedness Denies discomfort or increase in discomfort with mobility, but behaviors do not support this. Therapeutic exercise: Patient in bed on my arrival. Supine AROM exercises performed as warm up for activity. Combination of verbal and visual cues needed for performance of tasks. Performed on bilateral LE Ankle pumps, heels slides and hip abduction 5 reps Therapeutic Activity: Bed Mobility: this patient performed supine -> sit with supervision assist and verbal cues for sequencing and technique, right side of bed HOB up and rail bed features. Sitting balance with close supervision Transfers: patient performed sit -> stand transfer from edge of bed and chair with moderate assist of 1. Bed to chair with moderate assist with no device via shuffle step transfer Walker provided and patient marching in place with ability to clear feet from the floor for functional steps, 7 on each foot with minimal contact assist for support. High amounts of verbal cues for task performance. Decreased activity tolerance noted as well as some confusion with task performance noted throughout session. Patient sitting reclined in chair at end of session. Call cortes in reach. Patient/Family Education: Topic: Assistive device/technique Bed mobility Exercise Gait Role of therapy Safety Transfers Learner: patient Method: verbal and demonstration Barriers to Learning: cognitive deficits Outcome: needs practice Team Communication: Pt status discussed with nursing prior to and after treatment session. Discussedcurrent level of mobility and recommendations with nursing for assistance with mobility and positioning outside of PT. Assessment/Plan ASSESSMENT: Patient with low activity tolerance and need for assistance to mobilize. She currently is not demonstrating a functional level necessary for return to home with assist and if she is medically ready forhospital discharge than [facility]IKA is recommended. 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 Henao, 11/12/17) 24/ Confused during AM Removed all deliriogenic medications Tramadol x1 for pain control Improved Neuro exam Subjective/ I'm okay. No specific complaints this AM. Objective/ Blood pressure 136/66, pulse 74, temperature 36.6 ??C (97.9 ??F), temperature source Tympanic, resp.rate 16, height 166.4 cm (65.51), weight 80.7 kg (178 lb), SpO2 97 %. Temp: [36.4 ??C (97.5 ??F)-37.5 ??C (99.5 ??F)] () BP: (115-150)/(54-71) () Exam: Alert Verbalizes appropriately, fluently Oriented to self, [facility], October 2017 Follows commands x4 Extraocular movements intact Face symmetric Tongue midline Full strength bilateral upper extremities No drift Sensation intact in bilateral upper extremities (C5/C6/C7/C8 distributions) Full strength bilateral lower extremities Sensation intact in bilateral lower extremities (L4/L5/S1 distributions) Incision dressing clean/dry/intact Studies/ Na/K/Cl/CO2: 136/4.6/107/23 (11/14 538) WBC/Hgb/Hct/Plts: 6.65/11.2/34.2/181 (11/15 602) BUN/Cr/glu/ALT/AST/amyl/lip: 16/0.62/--/--/--/--/-- (11/14 538) Assessment/ Rehan Gann is a 77 y.o. female s/p bifrontal craniotomy for microsurgical clipping of a left pericallosal aneurysm. Initially confused post-operatively, now with improved neuro exam. Continue working with therapies today. Plan/ Neurological - Q4H neuro checks, Analgesia - Acetaminophen, oxycodone Cardiovascular - SBP 100-140 Respiratory - SpO2>92%, IS FEN/GI - Regular diet Hematological - Trend CBC Infectious - Trend Fever Curve and WBC Endocrinology - JOEL Consults - PT/OT Imaging - No further imaging at this time PPx - SCD/SELIN Activity - As tolerated Disposition - dispo pending PT/OT recommmendations Johnny Yeh MD Neurosurgery resident 11/15/2017 6:54 Page [phone] with questions Associated attestation - Dennis Henao MD - 11/15/2017 1015 EDT Neurosurgery Staff I have seen and examined this patient. I reviewed the patient's history and exam with the Neurosurgery Resident. I agree with the findings, assessment and treatment plan as documented in the resident'snote. Much better today- recognizes Drs and oriented / Mobilizing PT neded Romeo Chen, PT - 11/14/2017 1136 EDT [facility] Therapies [facility] Therapy[facility] Note Date of Service: 11/14/2017 Patient is unable to participate with PT for progression of activities at this time. Currently recommend ongoing mobility with nursing assistance as tolerated. If medically ready for discharge then SARmay be necessary as she is not demonstrating mobility necessary for return to home with family at this time. PT will follow up 11/15ROMEO PT 11/14/2017 11:36 TTiera Lucia, OT - 11/14/2017 0948 EDT [facility] Therapy Acute Therapies [facility] Occupational Therapy Initial Evaluation Note Date of Service: 11/14/2017 Reason for Referral: Evaluate and treat Precautions: Up ad suresh and Elevate HOB > 30 degrees SUBJECTIVE: Oh honey Pain: Unable to answer questions about pain. Groaning at times. OBJECTIVE: Patient Profile: Rehan Gann is a 77 y.o. female admitted on 11/12/2017 secondary to *Left frontal craniotomy for clipping of aneurysm I67.1 Cerebral aneurysm, nonruptured-I67.1[ICD-10-CM] The patient lives at [address] [place] [address] History of Present Illness/Injury: Underwent Bifrontal craniotomy for microsurgical clipping of a left pericallosal aneurysm (Dr. Henao, 11/12/17) Per chart: Caregiver Support: Part-time assist and initially pt's sister can stay with her 24/7. Equipment Available: None Lives alone in a house with 2 steps to enter. Details of home set up limited at this time. 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 Medical/Surgical History: Current: Patient Active Problem List Diagnosis ??? Cerebral aneurysm, nonruptured Past: Past Medical History: Diagnosis Date ??? Bursitis On the right ??? Chronic back pain ??? Hypertension ??? PMR (polymyalgia rheumatica) ([facility]) Past Surgical History: Procedure Laterality Date ??? EYE SURGERY Bilateral Cataract ??? TUBAL LIGATION Medications: Medications reviewed Body Functions and Performance Skills: Cardiovascular/Respiratory Systems Function: Vital Signs: Position Heart Rate (bpm) Blood Pressure (mmHG) Oxygen Saturation SPO2 Pre: Semi-fowlers 74 136/62 95% Post: *Not taken due to in bed limited eval Mental Functions: Specific mental functions: Followed ~ 50% of one step commands. Unable to answer questions. Used nonspecific verbalizations such as Oh honey yeah,yeah, sure Global mental functions: Pt in and out of alertness. Oriented to friend, Jolie, only. Unable to state her own name. Unable to state her last name when provided with her first name. Sensory Functions: Unable to evaluate due to limited cognitive status. Flinched on RUE during BP cuff inflation. Neuro musculoskeletal and Movement Related Functions: Range of motion: Pt demonstrated B shoulder flexion to at least 90 bilaterally. Active movement noted in BUEs during in bed evaluation, but limited due to cognitive deficits Skin and Related Structure Functions: Skin functions: dressing in place from surgery. Areas of Occupation and Performance Skills: Basic Activities of Daily Living: Not able to evaluate due to impaired cognition and decreased arousal. Informed Consent: The patient was unable to consent due to impaired cognition. Interventions completed today: Occupational therapy today at 10:25. Total treatment time: 15 minutes. Timed code treatment minutes: 15 Intervention included: none Patient/Family Education: Not applicable Team Communication: With PT and RN re: pt status, concerns about decreased cognitive status since yesterday evening. RN reports they are holding sedating medications today. Pt clearly not ready for discharge at this time. ASSESSMENT: Rehan Gann is a 77 y.o. year old female who was able to participate minimally in an OT evaluation today. Rehan underwent a bifrontal craniotomy with aneurysm clipping on 11/12. Today Rehan demonstrates fluctuating alertness and significant cognitive impairment which per chart review is more pronounced than yesterday. Rehan was groaning at times during this session. Because of her cognitive impairments, today's evaluation was quite limited. RN reports they are holding her sedating medications today and assessing her cognition regularly. Rehan is currently functioning far below her baseline at which timeshe was living alone and independently. At this time, once medically stable, Rehan would be appropriat e for admission to a subacute Rehab. Depending on her recovery trajectory, she may be able to tolerate acute rehab once medically stable. Rehan is appropriate for occupational therapy for ongoing cognitive, visual and ADL assessment, intervention and to assist with discharge planning. GOALS: Jail Goals: 3-4 weels ?? Pt will demonstrate orientation to self, place, month, year and reason for admission consistently ?? Pt will move supine > edge of bed with supervision ?? Pt will groom, seated, with set up and no cues ?? Pt will complete ambulatory toilet transfer with min A ?? Pt will demonstrate ability to sustain attention to ADL task for 15 minutes ?? Pt will demonstrate ability to [facility] pants and slipper socks with min A PLAN: Intervention: Occupational therapy treatment for: Frequency: daily for 3 times per week Intensity: 15-30 minutes per session. Interventions include: Occupation Based Activity - Basic Activities of Daily Living Purposeful Activity Patient/Family Education Standardized Cognitive Testing Further Data: Cognitive assessment (MoCA, SLUMS), vision screen when able, UE assessment, basic ADL assessment Patient/Family Education: Discharge Planning Recommended Discharge Destination: Acute vs. sub-acute rehabilitation (see assessment) Recommended Discharge Services: Occupational therapy at rehabilitation facility Recommended Discharge Equipment: To be determined Pager: [phone] Tiera Lucia OT, 11/14/2017, 9:49 Flor Kruse RN - 11/14/2017 0945 EDT Attempted to meet pt, sleeping soundly, will attempt later today. 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 Henao, 11/12/17) 24/ Transferred to floor, stable overnight rHCT yesterday afternoon stable Subjective/ I'm doing alright. No specific complaints this AM. Objective/ Blood pressure 127/57, pulse 72, temperature 36.7 ??C (98.1 ??F), temperature source Tympanic, resp.rate 16, height 166.4 cm (65.51), weight 80.7 kg (178 lb), SpO2 95 %. Temp: [36.4 ??C (97.5 ??F)-37.3 ??C (99.1 ??F)] () BP: (94-127)/(46-58) () Exam: Alert Verbalizes appropriately, fluently Oriented to self, Hospital, not to time/year Follows commands x4 Extraocular movements intact Pupils equal, round, reactive Face symmetric Tongue midline Shoulder shrug 5/5 UE Strength - LEFT Deltoid (C5) 5/5 Bicep (C5, 6) 5/5 Tricep (C6, 7) 5/5 Molded Frames Assembler (C8) 5/5 UE Strength - RIGHT Deltoid (C5) 5/5 Bicep (C5, 6) 5/5 Tricep (C6, 7) 5/5 Molded Frames Assembler (C8) 5/5 No drift Sensation intact in bilateral upper extremities (C5/C6/C7/C8 distributions) LE Strength - LEFT Iliopsoas(L2, 3) 5/5 Quadricep (L3, 4) 5/5 Knee Flexor (L5, S1) 5/5 Gastroc (S1, S2) 5/5 Anterior Tibialis (L4, 5) 5/5 Extensor Hallicus (L5) 5/5 LE Strength - RIGHT Iliopsoas(L2, 3) 5/5 Quadricep (L3, 4) 5/5 Knee Flexor (L5, S1) 5/5 Gastroc (S1, S2) 5/5 Anterior Tibialis (L4, 5) 5/5 Extensor Hallicus (L5) 5/5 Sensation intact in bilateral lower extremities (L4/L5/S1 distributions) Incision dressing clean/dry/intact Studies/ Na/K/Cl/CO2: 136/4.6/107/23 (11/14 538) WBC/Hgb/Hct/Plts: 9.63/10.9/33.7/165 (11/14 538) BUN/Cr/glu/ALT/AST/amyl/lip: 16/0.62/--/--/--/--/-- (11/14 538) Assessment/ Rehan Gann is a 77 y.o. female s/p bifrontal craniotomy for microsurgical clipping of a left pericallosal aneurysm doing well post-operatively with repeat post-operative CT head stable with dispo pending PT/OT recommendations. Plan/ Neurological - Q4H neuro checks, Analgesia - Acetaminophen, oxycodone Cardiovascular - SBP 100-140 Respiratory - SpO2>92%, IS FEN/GI - Regular diet Hematological - Trend CBC Infectious - Trend Fever Curve and WBC Endocrinology - JOEL Consults - PT/OT Imaging - No further imaging at this time PPx - SCD/SELIN Activity - As tolerated Disposition - dispo pending PT/OT recommmendations Clark Powell MD Neurosurgery resident 11/14/2017 7:38 Page [id number] with questions Associated attestation - Dennis Henao MD - 11/14/2017 1006 EDT Neurosurgery Staff I have seen and examined this patient. I reviewed the patient's history and exam with the Neurosurgery Resident. I agree with the findings, assessment and treatment plan as documented in the resident'snote. Mildly confused Na ok, WBC ok, O2 sat ok Will hold meds BT Mariann Kay OT - 11/13/2017 1042 EDT Rehabilitation Therapies [facility] Occupational Therapy Contact Note Date of Service: 11/13/2017 Occupational Therapy priority for discharge referral received. Chart reviewed. Communicated with PT who stated pt is not clinically ready and Occupational Therapy evaluation wouldbest be completed on 11/14/17. Occupational Therapy to follow up with pt tomorrow, 11/14/17 to determine d/c recommendations. Mariann aKy OT, 11/13/2017, 10:43 Romeo Suarez, PT - 11/13/2017 0942 EDT [facility] Therapy[facility] Note Date of Service: 11/13/2017 Referral received as priority for discharge. Patient with poor tolerance to activity today and does not demonstrate the functional readiness for discharge at this time. Full note to follow. ROMEO SUAREZ PT 11/13/2017 9:44 Romeo Suarez, PT - 11/13/2017 5795 EDT [facility] Rehabilitation Therapy Acute Therapies [facility] Physical Therapy Initial Evaluation Note Date of Service: 11/13/2017 Reason for Referral: Priority for discharge Precautions: Up ad suresh SUBJECTIVE: Denies any complaints or pain, but actions/behaviors are not consistent with this. Pain: Location: patient denies pain when asked but during exam has left foot pain and pressure at surgicalsite Intensity: patient does not rate Frequency: intermittent Quality: Patient does not describe Aggravating factors: Foot pain increases to touch and movement, patient tells me she is Okay when I ask about her head, throughout evaluation she intermittently holds her head Alleviating factors: Foot pain improved after mobility, medications OBJECTIVE: PatientProfile: Patient is a 77 y.o. female admitted on 11/12/2017 secondary to *Left frontal craniotomy for clipping of aneurysm I67.1 Cerebral aneurysm, nonruptured-I67.1[ICD-10-CM] The patient lives at [address] [place] [address] Home environment Lives:alone Caregiver Support: Part-time assist, sister will stay with her post-op or 24 hour assistance Equipment Available: None Home Environment: house Home Layout: 2 steps to enter with rail Prior Level of Function: Independent, reports chronic back pain and she sees a chiropractor Services prior to admission: chiropractor for back pain Work/Leisure: Retired Medical/Surgical History: Current: 11/13/[address]: Impression: ?? 1. 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 ?? 2. ??Small amount expected of extra-axial hemorrhage and ?? pneumocephalus status post aneurysm clipping Patient Active Problem List Diagnosis ??? Cerebral aneurysm, nonruptured Past: Past Medical History: Diagnosis Date ??? Bursitis On the right ??? Chronic back pain ??? Hypertension ??? PMR (polymyalgia rheumatica) ([facility]) Past Surgical History: Procedure Laterality Date ??? EYE SURGERY Bilateral Cataract ??? TUBAL LIGATION Medications: Medications reviewed Arousal, Attention, and Cognition: Orientation: Awake and participativ Oriented to person and place, but provides limited history and short non- detailed answers Cardiopulmonary: Vital Signs: Activity Heart rate (bpm) Blood Pressure (mmHg) Respiratory rate (breaths/min) Oxygen Sat/ Fractions of inspired Oxygen SPO2/FIO2 % Pre- activity - supine 70 107/45 96% on room air During- sitting 70-75 98/49 then 129/57 - difficult to read due to patient not keeping arm still 96% on room air Post-activity- reclined in chair 70 107/51 96% on room air She denies dizziness or lightheadedness. Denies headache when asked directly, denies double vision. 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 After transfer to chair she demonstrates AROM with no deficits and no pain. RightLower Extremity: Lumbar Spine: N/E Muscle Performance: In supine: able to actively move UE(shoulder flexion, shoulder abduction, elbow flexion, elbow extension, and hand supervisor record press ) and LE(hip flexion, hip abduction, knee flexion, ankle dorsiflexion (after mobilization) and ankle plantar flexion for functional ROM suggesting strength of at least 3/5. Sensation, Reflexes, and Nerve Integrity: Light Touch Sensation: Upper Quarter:Not evaluated secondary to patient unable to participate in formal sensory testing butlight touch sensation appears intact Lower Quarter: Not evaluated secondary to patient unable to participate in formal sensory testing but light touch sensation appears intact Neuromotor Function/Development: No problems noted Balance, Mobility, and Gait: Balance: Sitting: Patient can tolerate static sitting at edge of bed with no assistance or loss of balance with close supervision Standing: Patient can tolerate static standing at edge of bed with minimal contact assist Mobility: Mobility evaluation as follows: Supine to sit: with supervision Sit to supine: N/E patient sitting in chair at end of session Sit to stand: with minimal assist Stand to sit: with minimal assist Bed to chair: with moderate assist, stand step transfer bed to chair Gait: Patient with poor tolerance to activity today and unable to progress beyond bed to chair transfer. Self-Care, Home Management, Work, and Leisure: N/E at this time Outcomes: Please refer to individual sections for any outcome measures that were performed Informed Consent: The patient consented to the physical therapy evaluation. The patient agrees to and understands the physical therapy treatment plan and goals. Interventions Completed Today: Physical Therapy today at: 9:05 Total treatment time: 40 minutes. Timed code treatment minutes: 10 Intervention included: Therapeutic exercises: ROM exercises performed to bilateral LE ta all joints for warm- up prior to mobility activity. She was unable to initially perform ankle pumps on left foot due to pain. Gentle passive ROM provided and compression stockings re-adjusted. After mobility she demonstrates improved ankle ROM and ability to demonstrate active ankle pumps bilaterally. EOB sitting x 5 minutes to allow accommodation to sitting position and initial nausea and dry heavesto pass. While sitting work on deep breathing for pulmonary hygiene. Therapeutic Activity: During all functional activities noted above this patient was provided with manual assist and education via combination of verbal and demonstration. This was provided to give movement strategies to increase amount of functional activity while decreasing pain and activity effort. Patient/Family Education: Topic: Activity pacing/Energy conservation Bed mobility Exercise Positioning Role of therapy Safety Transfers Learner: patient Method: verbal and demonstration Barriers to Learning: post op status may impact ability to fully focus and retain information Outcome: requires assist and verbalized understanding Team Communication: Discussed current level of mobility and recommendations with nursing for assistance with mobility and positioning outside of PT. ASSESSMENT: Physical Therapy Diagnosis: this patient s/p Bifrontal craniotomy for microsurgical clipping of a left pericallosal aneurysm presents with a PT diagnosis of decreased mobility with decreased activity tolerance. Physical Therapy Prognosis: Patient was appropriate for skilled PT evaluation and intervention. At baseline she is independent with mobility and currently she is well below this baseline level. She will need to demonstrate significant improvement in mobility and tolerance to activity for return to home with assist of her sister. Patient verbally denies pain, except left foot pain, but her behaviors during first mobility efforts support pain in head as well and nausea with mobility also impacted activity today. Her foot pain was expected to limit mobility but with initiation of steps and weigth bearing this is improved and hopefully will not impact ambulation as she tolerates increased activity. Ifthis does impact ambulation progression, use of assistive device may need to be considered. Evidence supports that early and regular mobilization decreases risks of secondary complications related from immobility and improves overall systemic body function. Skilled intervention by PT with knowledge of disease pathophyslology is indicated to establish and progress mobility and exercise, and provide recommendations for staff and safe discharge planning. Short-Term Goals: N/A ?? Long-Term Goals: 1-2 weeks The patient will be able to perform bed mobility with modified independence assist demonstrating appropriate sequencing/motor planning. The patient will demonstrate vital signs in parameters with position changes. The patient will be able to perform bed to chair transfers with modified independence while demonstrating an effective strategy for recovery of loss of balance. The patient will be able to ambulate with supervision to modified independence with no loss of balance on level surfaces 100- 200 feet. The patient and/or caregiver will be able to recall and demonstrate precautions. All of the above mobility goals will be performed with an oxygen saturation > 95%. The patient will be able to perform stairs with supervision with home set up for rails. PLAN: Treatment/Intervention: Physical therapy will be provided by physical therapist and/or physical therapist resident assistant cna when medically appropriate. Frequency: daily for 3-5 times per week as determined by the patient's medical stability, tolerance to activity and progression of functional activities Intensity: 15-30 minutes per session Duration: During hospitalization Interventions may include:Therapeutic exercises, Therapeutic activities and Gait training Patient/family education: Discharge planning, Equipment, Recommendations, Role of physical therapy/rehabilitation, Safety Further Data: mobility progression Recommended Discharge Destination: To be determined. Hopeful for home with sister, but if slower rate of progress, rehab may need to beconsidered Recommended Discharge Services: To be determined based on level of function at time of discharge Recommended Equipment Needs: To be determined Other recommendations: Occupational Therapy consult when tolerating increased activity Pager: [phone] ROMEO SUAREZ PT 11/13/2017 8:57 Johnny Yeh MD - 11/13/2017 0785 EDT Neurosurgery Progress Note 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 Henao, 11/12/17) 24/ -To SICU post-op -CT Head - mild pneumocephalus, hypodensity in left AUDRA territory consistent with retraction edema -JOSSELIN overnight -Pain well controlled -Neuro stable in ICU Subjective/ I feel okay. Denies complaints this AM. Objective/ Blood pressure 110/49, temperature 36.3 ??C (97.3 ??F), resp. rate 18, height 166.4 cm (65.5), weight 80.7 kg (178 lb), SpO2 98 %. Temp: [35.8 ??C (96.4 ??F)-36.5 ??C (97.7 ??F)] () BP: (110-153)/(46-76) () Exam: Alert Verbalizes appropriately, fluently Oriented to self, Hospital, October 2017 Follows commands x4 Extraocular movements intact Pupils equal, round, reactive Face symmetric Tongue midline Shoulder shrug 5/5 UE Strength - LEFT Deltoid (C5) 5/5 Bicep (C5, 6) 5/5 Tricep (C6, 7) 5/5 Molded Frames Assembler (C8) 5/5 UE Strength - RIGHT Deltoid (C5) 5/5 Bicep (C5, 6) 5/5 Tricep (C6, 7) 5/5 Molded Frames Assembler (C8) 5/5 No drift Sensation intact in bilateral upper extremities (C5/C6/C7/C8 distributions) LE Strength - LEFT Iliopsoas(L2, 3) 5/5 Quadricep (L3, 4) 5/5 Knee Flexor (L5, S1) 5/5 Gastroc (S1, S2) 5/5 Anterior Tibialis (L4, 5) 5/5 Extensor Hallicus (L5) 5/5 LE Strength - RIGHT Iliopsoas(L2, 3) 5/5 Quadricep (L3, 4) 5/5 Knee Flexor (L5, S1) 5/5 Gastroc (S1, S2) 5/5 Anterior Tibialis (L4, 5) 5/5 Extensor Hallicus (L5) 5/5 Sensation intact in bilateral lower extremities (L4/L5/S1 distributions) Incision dressing clean/dry/intact Studies/ Na/K/Cl/CO2: 138/4.7/108/22 (11/14 315) WBC/Hgb/Hct/Plts: 9.85/11.4/34.3/171 (11/14 315) BUN/Cr/glu/ALT/AST/amyl/lip: 15/0.71/--/--/--/--/-- (11/14 315) Assessment/ Rehan Gann is a 77 y.o. female s/p bifrontal craniotomy for microsurgical clipping of a left pericallosal aneurysm doing well post-operatively. Head CT this AM consistent with mild retraction edema,not consistent with infarct. Plan/ Neurological - Q4H neuro checks, Analgesia - Acetaminophen, oxycodone Cardiovascular - SBP 100-140 Respiratory - SpO2>92%, IS FEN/GI - Regular diet, d/c IVFs once PO intake >500cc Hematological - Trend CBC Infectious - Trend Fever Curve and WBC Endocrinology - JOEL Consults - PT/OT Imaging - No further imaging at this time PPx - SCD/SELIN Activity - As tolerated Disposition - Transfer to Floor Johnny Yeh MD Neurosurgery resident 11/13/2017 7:24 Page [id number] with questions Associated attestation - Dennis Henao MD - 11/13/2017 0848 EDT Neurosurgery Staff I have seen and examined this patient. I reviewed the patient's history and exam with the Neurosurgery Resident. I agree with the findings, assessment and treatment plan as documented in the resident'snote. Doing well CT good BT Bhavani Joaquin, RT - 11/12/2017 1508 EDT Respiratory Consult/Progress Note Indications for Respiratory therapy: Initial Consult Data Vitals: Heart Rate: 73 BPM, Resp: 17, SpO2: 100 % FIO2/O2 Device: O2 Flow Rate (L/min): 2 l/min, , O2 Device: Nasal cannula, RT Orders: Daily Spiriva Q12 Respiratory Evaluation Protocol Scoring: Bronchodilator/Inhalation Therapy Frequency Bronchodialator - Clinical Indications: History of COPD Breath Sounds: Any abnormal BS decreased Response: No change / no treatment Pulse: <100 Resp Rate: 18-25 SOB: With exertion Total Score: 3 Comment:: Not indicated Airway Clearance Therapy Frequency Airway Clearance - Clinical Indications: Rhonchi Breath Sounds: Rhonchi / crackles Sputum: Small (tsp) / None Consistency: Thin Cough Effort: Strong, productive Color: Clear / white Total Score: 2 Comment: Not indicated Hyperinflation Therapy Frequency Hyperinflation - Clinical Indications: Decreased breath sounds with increased FiO2 Breath Sounds: Other Surgery: Yes X-Ray / Atelectasis: No O2 Requirements: 0-2 L above baseline Mobility Status: In bed Total: 7 Comment: IS at bedside Action/Events Respiratory events; Pt does have a history of COPD 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 Pt states shenever takes Albuterol MDI at home. Able to administer Spiriva on own once transferred to the floor. No home oxygen or history of NAVA/CSA. Breath sounds are diminished with rhonchi. Pt has a strong productive cough. Will work with IS when pt is more alert. RT Charlotte 11/12/17 Clark Melchor MD - 11/12/2017 1322 EDT Neurosurgery Post Procedure Note Problems/ Bifrontal craniotomy for microsurgical clipping of a left pericallosal aneurysm Procedures/ Unruptured left Pericallosal artery aneurysm Subjective/ Doctor, Doctor, doctor, yeah I'm okay. No specific complaints. Objective/ BP (!) 148/76 Temp 35.8 ??C (96.4 ??F) (Axillary) Resp 10 Ht 166.4 cm (65.5) Wt 80.7 kg (178 lb) SpO2 100% BMI 29.17 kg/m2 Alert and oriented to self, not to place, or date (groggy, just received fentanyl) Speech fluent, no dysarthria PEERLA 2 to 1 bilaterally EOMI FCX4 Patient moving all extremities spontaneously, formal strength testing deferred until more awake withless medication on board Assessment/ 77 yo woman sp bifrontal craniotomy for microsurgical clipping of a left pericallosal aneurysm Plan/ SICU Q1H neuro checks Keppra 500 BID x 7 days Pain control Advance diet as tolerated Activity as tolerated Clark Powell MD Neurosurgery resident 11/12/2017 13:23 Page [id number] with questions Shannan Ivory, RN - 10/31/2017 1058 EDT Rehan Gann has been instructed as follows regarding medication administration for the day of the scheduled procedure. Date of Surgery: 11-12-17 Instructions for Taking Medications Day of Surgery Medication Sig Last Dose Hold DOS Take DOS ALBUTEROL INHL Inhale as directed as needed. aspirin 81 mg EC tablet Take 81 mg by mouth daily. Yes lisinopril (PRINIVIL, ZESTRIL) 2.5 mg tablet Take 2.5 mg by mouth daily. Hold 11-11-17 and 11-12-17 x Multivitamins with Minerals tablet tablet Take 1 Tab by mouth daily. Hold one week x NIFEdipine XL (PROCARDIA-XL) 30 mg tablet Take 30 mg by mouth daily. Yes tiotropium (SPIRIVA WITH HANDIHALER) 18 mcg inhalation capsule Inhale 18 mcg as directed daily. Yes documented in this encounter H&P Notes Linh Santamaria MD - 11/12/2017 0704 EDT The preoperative history and physical which was performed within 30 days of this procedure has been reviewed and the clinically appropriate elements of the physical examination havebeen repeated. There are no changes to the documented history and physical or if so such changes aredocumented below History reviewed with the patient; No change in symptoms leading to this surgery No Recent change in health such as systemic or skin infections, chest pain, hearth attack, strokes etc Not on blood thinners (stopped ASA 7 days ago) No obvious skin lesions Sommer?? Akt??MD wayne Neurosurgery Resident 11/12/2017 7:05 Please page Neurosurgery Service Pager [phone] for questions Linh Santamaria MD 11/12/2017 7:05 documented in this encounter Procedure Notes Bravo Fajardo MD PhD - 11/12/2017 1347 EDTProcedure(s): EEG Intraoperative Monitoring Report Referring Physician: Dennis Henao Study Number: [id number] Clinical Indication: Patient with an aneurysm of the anterior communicating artery in need of clamping. Monitoring is undertaken to monitor the evoked potentials on the arms and legs during all clamping procedures and the EEG to assure a burst suppression pattern with at least 10 second suppression periods during clamping of critical arteries. Technical Description: The patient was prepared with stimulating electrodes over the right and left ulnar nerves at the wrists and posterior tibial nerves at the ankles. In addition a set of EEG electrodes was applied in accordance with the International 10-20 system in central parietal and occipital regions and and posterior temporal derivations as well as midline derivations. Monitoring of the evoked potentials was undertaken at cervical vertebra II and over scalp regions above sensorimotor cortex. Findings: EEG monitoring began at 8:01 and to need until 12:03. The evoked potentials were well formed from the outset and stable throughout the procedure. There was intermittent clamping of anterior cerebral arteries from time to time after a burst suppression pattern was arranged with anesthesiologyto help. No asymmetries in the EEG are seen in association with this procedure. Summary: No evidence of hemispheric ischemia seen in association with this surgical procedure. Burstsuppression pattern was readily maintained throughout the period of critical clamping. Bravo Fajardo MD, PhD ABPN Neurology ABCN Clinical Neurophysiology documented in this encounter OR Notes OR Surgeon - Dennis Henao MD - 11/12/2017 0000 EDT OPERATIVE REPORT SERVICE DATE: 11/12/2017 SURGEON: Dennis Henao MD ASSISTANTS: Linh Santamaria MD, Dhaval Matthew MD ANESTHESIA: General. PREOPERATIVE DIAGNOSIS: Left pericallosal cerebral aneurysm. POSTOPERATIVE DIAGNOSIS: Left pericallosal cerebral aneurysm. PROCEDURES: 1. Bifrontal craniotomy. 2. Surgical clipping of left pericallosal aneurysm. 3. Temporary clipping technique for clipping of aneurysm. 4. Intraoperative neuro-electrophysiological monitoring. 5. Microsurgical technique. ANEURYSM CLIP USED: Sugita 7 mm sideward curve, 17-001- (MRI compatible). INDICATIONS: This 77-year-old female underwent a CT scan because of visual problem with her left eyeand an incidental aneurysm was seen. She then underwent a CTA and a formal cerebral angiogram, whichrevealed a 7 mm left pericallosal aneurysm. Treatment options were clearly discussed with her, thoseincluding monitoring versus definitive treatment. Treatment techniques were also discussed, those being surgical clipping or endovascular treatment. Based on the cerebral angiogram, our cerebrovascularteam felt that surgical clipping would be the best technique to use to treat this definitively. The risks of surgical clipping of the aneurysm were clearly explained to the patient. She understood the risks and asked us to proceed. FINDINGS: At surgery, the aneurysm was well exposed as it arose from the left A2 vessel. Pericallosal branch was clearly seen as well. Left and right A2 and A3 vessels were clearly seen. The neck of the aneurysm was dissected out. We did temporary clip the proximal left A2 four times in order to dissect the neck of the aneurysm out, as well as placed a satisfactory clip. The temporary clipping was done using burst suppression with monitoring. The longest period of temporary clipping was 3 minutes. The sideward curved aneurysm clip was placed at the neck of the aneurysm and the aneurysm was entirelysecured, and all surrounding vessels were widely patent. We tested patency with ultrasound as well as IC-Green fluorescence. NARRATIVE: This patient was brought to the operating room for surgical clipping through craniotomy of a left pericallosal aneurysm. In supine position, she was intubated and put under general anesthetic. Pneumatic stockings, IV, art line, Carreon catheter were put in place. Her head was affixed in the Chacko 3-point headrest in the nose up position. She was covered perioperatively with antibiotics, Keppra, Decadron, and mannitol was given intraoperatively. Her bifrontal region was shaven just along the hairline and then bifrontal region was then prepped and draped for a bicoronal skin incision. EEGelectrodes had been put in place prior to prepping and draping. Safety checklist done. Local anesthetic injected along the planned incision. A bicoronal incision was then made just behind the hairline. Subcutaneous tissue, galea cut sharply down to the pericranium. The pericranium was opened with the cutting cautery and the skin flap was reflected anteriorly. The bifrontal region was exposed. The temporal muscles were not opened. We did use Stealth neuro-navigation to plan the bone flap as well as identify the location of the aneurysm. Thus, the bone flap was mapped out just above the frontal sinuses. Two curly holes were put oneither side of the superior sagittal sinus anteriorly and posteriorly, and 1 curly hole was placed left lateral over the frontal lobe. Dura was stripped and the craniotome was used to connect the curly holes and a free bone flap was removed. Along the superior sagittal sinus, we did use the QD8 to remove bone. The dura was very adherent to the inner table of the bone and the dura did tear extensively during the opening. The superior sagittal sinus remained intact, however. The dura was opened on the left side and the dural flap was hinged along the superior sagittal sinus and held in place with stay sutures. Thus, the left frontal lobe was exposed. The falx was clearly identified and the interhemispheric fissure was widely exposed. Microscope was brought in and microsurgical technique was used. Stealth neuro- navigation was used toidentify the direction of the pericallosal aneurysm. We then used microsurgical technique to follow the interhemispheric fissure down to the aneurysm. We used Hayes halo retractor system to gently retract the left frontal lobe. Under the microscope, we were able to identify both A2 and A3 vessels, pericallosal vessels, and the aneurysm was clearly seen. We used temporary clipping 4 times, no longer than 3 minutes was the max, to define the neck of the aneurysm and place various sizes of clips on theaneurysm until the aneurysm was satisfactorily secured. We used a 7 mm Sugita sideward curve clip, which was placed securely at the neck. All surrounding vessels, those being the pericallosal vessels, as well as A2 and A3 branches were widely patent. We tested patency using Doppler as well as IC-Green. We also placed papaverine over the dissected vessels for 5 minutes to reverse any mechanical vasospasm, and then we irrigated the papaverine out. With the aneurysm well-secured and all surrounding vessels widely patent, and bipolar was used to stop any oozing from the brain, the incision was then closed. The dura was closed as best as possible with 4-0 Nurolon, and then the dura was covered with Durepair and DuraGen. Gelfoam had been previously placed along the superior sagittal sinus. A central hitch-up stitch was put in place. The bone secured back in place with plates and screws. HydroSet was then used to seal the bony defects and cover the plates and screws. We did use fibrin glue to seal the e dges of the dura. With the HydroSet in place, the wound was thoroughly irrigated one last time and then closed. 3-0 Vicryl was used to close the galea, followed by running Rapide stitches for the skin.Sterile dressing was then applied. The patient was stable throughout the procedure and left the operating room in good condition. Count was correct. No complications encountered. No drains used. . Dennis Henao MD 12 08 PM / Dennis Henao MD cn Confirmation: [id number] Dictation ID: [id number] cc: Dhaval Chaudhry MD documented in this encounter Miscellaneous Notes Plan of Care - Henny Schofield RN - 11/16/2017 1126 EDT Problem: Daily Care Plan Goals Goal: Care Plan Documentation Outcome: Completed Date Met: 11/16/17 11/16/17 0800 Care Plan Focus Area of Focus Discharge Plan Goal This Shift Pt will discharge with needs met [facility] Action: Report called to Stephania LUGO. Pt updated on plan of care and transfer. Response: Pt agreeable to transfer. Pt medically stable at time of transfer. Henny Schofield RN 11/16/2017 12:51 lan of Care - Flor Luo RN - 11/16/2017 0950 EDT 11/16/17 0950 Medicare IM Notice: IM notice status Patient received notification verbally and in writing while in hospital. IM notice given at discharge? Yes lan of Care - Bhavani Shine RN - 11/16/2017 0335 EDT Problem: Daily Care Plan Goals Goal: Care Plan Documentation Outcome: Ongoing 11/15/17 2330 Care Plan Focus Area of Focus Pain/ Comfort Goal This Shift Pt will report tolerable level of pain Data: Pt s/p bifrontal crani for aneurysm clipping. Action: Pt monitored closely overnight - Q4H vitals, Q4H neuro checks, repositioning. Response: Pt slept well overnight. Neuro checks stable. AVSS. Reports pain minimal at 10. Denies need for pain med. Repositioned for comfort. Friend in recliner chair at bedside overnight. Call lightwithin reach. Will cont to closely monitor. BHAVANI SHINE RN 11/16/2017 3:30 Problem: High Fall Risk: Goal: Patient will Remain Free of Falls due to Med. Side Effects Outcome: Met This Shift Problem: High Fall Risk: Add only for + Hendrich score - Add only risk factors indicated by assessment Goal: Patient Will Remain Free from Fall-Related Injury Outcome: Met This Shift Problem: High Fall Risk: Goal: Patient will Remain Free of Falls due to Altered Elimination Outcome: Met This Shift Problem: High Fall Risk: Goal: Patient will Remain Free of Falls due to Altered Mobility Outcome: Met This Shift lan of Care - Benito Douglas RN - 11/15/2017 1954 EDT Problem: Daily Care Plan Goals Goal: Care Plan Documentation Outcome: Ongoing 11/15/17 0954 Care Plan Focus Area of Focus Mobility Goal This Shift pt will work with PT and be safe for discharge Data: Pt admitted for bifrontal craniotomy and aneurysm clipping. Action: Vitals Q4h. Neuro checks Q4h. Pt more alert, oriented x3, strong throughout, PERRLA. tylenoland aspirin given for pain. Pt assisted x1 to commode. Strict intake and output. Response: Pt resting comfortably. Pain better controlled. Plan is for SARIKA. Will continue to monitor. BENITO DOUGLAS RN 11/15/2017 19:53 lan of Alan - Azra Solano RN - 11/15/2017 0500 EDT Problem: Daily Care Plan Goals Goal: Care Plan Documentation Outcome: Ongoing 11/15/17 0119 Care Plan Focus Area of Focus Pain/ Comfort Goal This Shift Pt will report pain within tolerable level Data: Pt POD #3 s/p crani for aneurysm clipping. Dry dressing to frontal head c/d/i. A+Ox3. PERRLA. Strong throughout. LLE weaker than right. Pt moaning throughout night and unable to sleep due to pain. Tylenol ineffective. Action: Contacted MD and received order for one time tramadol. Pt one assist to bedside commode. Treated elevated BP during night. Response: Tramadol effective. Pt able to fall asleep. Resting comfortably at this time. Continuous O2 monitoring in place. Call cortes within reach. Friend Jolie at bedside. AZRA SOLANO RN 11/15/2017 4:49 lan of Alan - Benito Douglas RN - 11/14/2017 1630 EDT Problem: Daily Care Plan Goals Goal: Care Plan Documentation Outcome: Ongoing 11/14/17 0853 Care Plan Focus Area of Focus Neuro Status Goal This Shift pt neuro status will be monitored Data: Pt POD #2 s/p craniotomy and aneurysm clipping. Today, pt incr. More confused, unable to stateown name, place and time. Action: MD paged and at bedside. Pt has waxing and waning neuro status. IVF. Pt x2 heavy assist OOB.Utilizing thompson roman pain scale. Neuro checks Q4h. Vitals Q4h. Original dressing CDI. Response: Pt resting comfortably. Per neuro, no narcotics. Call cortes within reach, bed alarm applied. Family updated. Will continue to monitor. BENITO DOUGLAS RN 11/14/2017 16:27 lan of Care - Azra Solano RN - 11/14/2017 0746 EDT Problem: Daily Care Plan Goals Goal: Care Plan Documentation Outcome: Met This Shift 11/13/17 2024 Care Plan Focus Area of Focus Neuro Status Goal This Shift Pt will maintain stable neuro status Data: Pt POD #1 s/p frontal crani for aneurysm clipping. A+Ox3. PERRLA. Surgical dressing in place c/d/i. Pt moaning and grimacing while stating she is not in pain. Action: NVS Q4. Monitoring intake and output. Pt able to void in bedside commode. PRN pain medications provided after discussing need for pain intervention with patient. At 0400, pt experienced dry heaving nausea but did not have emesis. PRN nausea medication provided with good effect. Response: No changes in neuro status. VSS. Pt able to sleep most of night. Encouraged to adhere to pain medication schedule. 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 Action: monitor neuro vital signs Response: pt alert and oriented x 3, pupils equal and reactive, Louis equally, pt frequently heard groaning in bed when asked if she is experiencing pain pt denies pain, when asked why she is groaning she says Oh I don't know honey, when she does endorse pain she has a difficult time rating the pain or describing it, at one point pt held head and rated pain 10/10 and pt given 5 mg Oxycodone and 650 mg Tylenol, slept in the late morning and early afternoon, declined lunch, later afternoon with a neuro check pt drowsy, oriented to self and [facility] but not oriented to month or year, notified NS resident who came to bedside to assess, pt seem to have difficulty focusing on questions asked of her, I don't know honey, awaiting to go to CT scan; continue to monitor Nakia Cortes RN 11/13/2017 16:56 nesthesia Post-Eval - Aman Gracia MD - 11/13/2017 0854 EDT Anesthesia Post op Note Rehan Gann [id number] Anesthesia received: General; Vital Signs: Temp: 36.7 ??C (98.1 ??F), Heart Rate: 66 BPM, BP: 118/49, Resp: 17, SpO2: 96 % Vital signs Stable: Yes Consciousness: Awake, Alert Patient's participation in evaluation:Able to participate Temperature Status: Normothermic Respiratory Status: Airway patent Supplemental O2: Room air Oxygen Saturation: Appropriate for condition Cardiovascular Status: Appropriate for condition Post-op Hydration: Adequate Nausea / Vomiting: None Pain Control: Adequate Current Pain Score: Numeric Pain Level (Scale 1-10): 3 Post-op Assessment: Tolerated procedure well Disposition: Inpatient Complications: No apparent anesthetic complications Aman Gracia MD 11/13/2017 8:54 lan of Care - Radha Delvalle RN - 11/12/2017 0669 EDT Problem: Daily Care Plan Goals Goal: Care Plan Documentation Outcome: Ongoing 11/12/171999 Care Plan Focus Area of Focus Neuro Status Goal This Shift monitor neuro vital signs q1 Data: Nicardipine paused at start of shift. Pt c/o 3/10 headache pain. Dressing C/D/I. Cuff and a-line match. Action: Did not need to restart nicardipine. Neuro checks q1. Pt repositioned self independently. CTat 0430. Response: Pt continues to c/o 3/10 headache pain. Bath in am, pt AOx3 with unchanged neuro status throughout shift. 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 Henao BUDGET CONSULTANT = Drs. Matthew and Rosalio ANESTHESIA = GETA COMPLICATIONS = None FINDINGS = Successful clipping EBL = 100 cc IVF = 1.4 liters UOP = 1200cc SPECIMENS/CULTURES = None DRAINS = None SKIN = Rapide (absorbable) DISPO =SICU Sommer?? Akt??MD wayne Neurosurgery Resident 11/12/2017 12:31 Please page Neurosurgery Service Pager [phone] for questions documented in this encounter Plan of Treatment Scheduled Referrals Name Type Priority Associated Diagnoses Order S chedule AMB CONS/FOLLOW UP Outpatient Referral Routine Cerebral aneury sm, Ordered: NEUROSURGERY nonruptured 11/16/2017 documented as of this encounter Procedures Procedure Name Priority Date/Time Associated Diagnosis Comme nts CT HEAD WO CONTRAST Routine 12/18/2017 9:17 Cerebral aneurysm, Results for this EDT nonruptured procedure are i n the results section. ECG REPORT - SCANNED 11/20/2017 8:20 EDT IMPLANT RECORD - 11/20/2017 8:20 SCANNED EDT IMPLANT RECORD - 11/19/2017 10:04 SCANNED EDT COMPLETE BLOOD COUNT Routine 11/15/2017 6:03 Resu lts for this AND DIFFERENTIAL EDT procedure a re in the results section. BUN Routine 11/15/2017 6:03 Results for this EDT procedure are i n the results section. CREATININE Routine 11/15/2017 6:03 Results for this EDT procedure are i n the results section. ELECTROLYTES Routine 11/15/2017 6:03 Results for this EDT procedure are i n the results section. DRY POWDERED OR Routine 11/15/2017 6:00 METERED DOSE INHALER EDT DRY POWDERED OR Routine 11/14/2017 6:00 METERED DOSE INHALER EDT COMPLETE BLOOD COUNT Routine 11/14/2017 5:39 Resu lts for this AND DIFFERENTIAL EDT procedure a re in the results section. BUN Routine 11/14/2017 5:39 Results for this EDT procedure are i n the results section. CREATININE Routine 11/14/2017 5:39 Results for this EDT procedure are i n the results section. ELECTROLYTES Routine 11/14/2017 5:39 Results for this EDT procedure are i n the results section. CT HEAD WO CONTRAST Routine 11/13/2017 17:45 Resu lts for this EDT procedure are i n the results section. EEG - SCANNED 11/13/2017 10:15 EDT ORDERS - SCANNED 11/13/2017 10:15 EDT DRY POWDERED OR Routine 11/13/2017 6:43 METERED DOSE INHALER EDT DRY POWDERED OR Routine 11/13/2017 6:43 METERED [address] INHALER ED[address] HEAD WO CONTRAST Routine 11/13/2017 4:19 Resul ts for this EDT procedure are i n the results section. COMPLETE BLOOD COUNT Routine 11/13/2017 3:16 Resu lts for this AND DIFFERENTIAL EDT procedure a re in the results section. BUN Routine 11/13/2017 3:16 Results for this EDT procedure are i n the results section. CREATININE Routine 11/13/2017 3:16 Results for this EDT procedure are i n the results section. ELECTROLYTES Routine 11/13/2017 3:16 Results for this EDT procedure are i n the results section. RESPIRATORY CARE Routine 11/12/2017 15:07 EVALUATION ONLY EDT RESPIRATORY CARE Routine 11/12/2017 15:07 EVALUATION ONLY EDT MRSA PCR Routine 11/12/2017 14:10 Results for this EDT procedure are i n the results section. BLOOD GAS, CG8 ISTAT Routine 11/12/2017 9:00 Resu lts for this EDT procedure are i n the results section. PREPARE RED BLOOD Routine 11/12/2017 8:41 Results for this CELLS EDT procedure are i n the results section. PREPARE RED BLOOD Routine 11/12/2017 8:41 Results for this CELLS EDT procedure are i n the results section. PREPARE RED BLOOD Routine 11/12/2017 8:41 Results for this CELLS EDT procedure are i n the results section. PREPARE RED BLOOD Routine 11/12/2017 8:41 Results for this CELLS EDT procedure are i n the results section. ABO/RH Routine 11/12/2017 7:54 Results for this EDT procedure are i n the results section. TYPE AND SCREEN Routine 11/12/2017 7:54 Results f or this EDT procedure are i n the results section. ECG REPORT - SCANNED 11/08/2017 9:35 EDT documented in this encounter Results CT HEAD WO CONTRAST (12/18/2017 9:17 EDT) Anatomical Region Laterality Modality Other Specimen Narrative [facility] - 12/18/2017 11:[address] HEAD WO CONTRAST ??12/18/2017 9:17 AM CLINICAL HISTORY: Headache. History of cerebral artery cli pping. COMPARISON: CT head November 13, 2017. TECHNIQUE: CT head without IV contrast. 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 N o evidence of new infarction. There is a mixed density subdural hemato ma along the right convexity measuring 6 mm in maximal diameter on [place] images, new from the immediate postoperative study performed November 13, 2017. High density material in the right super ior frontal sulcus is unchanged. Changes related to prior fron tomás craniotomy are present. Aneurysm clip in the interhemispheric fi ssure is again seen. Scattered hypodensities in the supratent orial white matter, non-specific, but likely representing mi ld chronic microangiopathic changes. The included soft tissues are unremarkab le. IMPRESSION: 1. New mixed density subdural hematoma a long the right convexity measures 6 mm in maximal dimension on co [place] images. 2. Postsurgical changes related to aneur ysm clipping are again seen. 3. 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 No e vidence of new infarction. 4. High density in the right superior fr ontal focus is unchanged. No surrounding edema to suggest any parench ymal injury. This may represent mineralization or calcificatio n in the subarachnoid space. Appearance is slightly atypical for veno us thrombosis given degree of high density and lack of change. If n eeded, CT venogram could be obtained to assess relationship of this high density structure to the veins. The results of this examination were com municated by phone to Carmen Rodriguez immediately upon discovery on 12/18/201711:45 AM and findings were repeated back to me to sig nify understanding according to our critical results reporting policy . Procedure Note Pedro Lebron MD - 12/18/2017 CT HEAD WO CONTRAST 12/18/2017 9:17 AM CLINICAL HISTORY: Headache. History of cerebral artery cli pping. COMPARISON: CT head November 13, 2017. TECHNIQUE: CT head without IV contrast. 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 N o evidence of new infarction. There is a mixed density subdural hemato ma along the right convexity measuring 6 mm in maximal diameter on [place] images, new from the immediate postoperative study performed November 13, 2017. High density material in the right super ior frontal sulcus is unchanged. Changes related to prior fron tomás craniotomy are present. Aneurysm clip in the interhemispheric fi ssure is again seen. Scattered hypodensities in the supratent orial white matter, non-specific, but likely representing mi ld chronic microangiopathic changes. The included soft tissues are unremarkab le. IMPRESSION: 1. New mixed density subdural hematoma a long the right convexity measures 6 mm in maximal dimension on co [place] images. 2. Postsurgical changes related to aneur ysm clipping are again seen. 3. 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 No e vidence of new infarction. 4. High density in the right superior fr ontal focus is unchanged. No surrounding edema to suggest any parench ymal injury. This may represent mineralization or calcificatio n in the subarachnoid space. Appearance is slightly atypical for veno us thrombosis given degree of high density and lack of change. If n eeded, CT venogram could be obtained to assess relationship of this high density structure to the veins. The results of this examination were com municated by phone to Carmen Rodriguez immediately upon discovery on 12/18/201711:45 AM and findings were repeated back to me to sig nify understanding according to our critical results reporting policy . Performing Organization Address City/State/ZIP Code Phon e Number [facility] (ABNORMAL) COMPLETE BLOOD COUNT AND DIFFERENTIAL (11/15/2017 6:03 EDT) Pathologist Sig nature WBC 6.65 4.0 - 12.4 [facility] LABORATORY SERVICES RBC 3.65 (L) 3.86 - 5.04 [facility] M/[facility] LABORATORY SERVICES Hemoglobin 11.2 (L) 11.6 - 15.2 [facility] gm/dl LABORATORY SERVICES HCT 34.2 (L) 34.9 - 44.4 % [facility] SERVICES MCV 94 81 - 98 fl [facility] MCH 30.7 26.7 - 33.3 pg [facility] MCHC 32.7 32.1 - 35.9 [facility] gm/dl LABORATORY SERVICES RDW-CV 13.0 <14.7 % [facility] LABOR[facility] SERVICES RDW-SD 44.8 <50.4 fl [facility] PLT 181 141 - 377 K/[facility] LABORATORY SERVICES MPV 9.8 9.5 - 12.7 fl [facility] SERVICES Neutrophils 77.5 % [facility] Lymphocytes 11.4 % [facility] Monocytes 9.2 % [facility] Eosinophils 1.2 % [facility] Basophils 0.2 % [facility] SERVICES Immature Grans 0.5 % [facility]OR[facility] SERVICES ABS Neutrophils 5.16 2.20 - 8.85 [facility] LABORATORY SERVICES ABS Lymphs 0.76 (L) 1.09 - 3.30 [facility] LABORATORY SERVICES ABS Monocytes 0.61 0.1 - 0.8 /[facility] LABORATORY SERVICES ABS Eosinophils 0.08 0.03 - 0.61 [facility] LABORATORY SERVICES ABS Basophils 0.01 0.01 - 0.11 [facility] LABORATORY SERVICES ABS Immature Grans 0.03 0 - 0.06 [facility] LABORATORY SERVICES Type of Diff: Automated [facility] SERVICES Specimen Blood specimen (specimen) - Blood Performing Organization Address City/State/ZIP Code Phon e Number [facility] [address] [place] [address] SERVICES CREATININE (11/15/2017 6:03 EDT) Creatinine 0.56 0.52 - 1.04 [facility] mg/dl LABORATORY SERVICES GFR, Calculated 92 >60 [facility] Comment: ml/min/1.73m2 LABORATORY eGFR calculated using CKD-EPI equation for SERVICES non Americans. Multiply eGFR by 1.16 for Americans. Specimen Blood specimen (specimen) - Blood Performing Organization Address City/State/ZIP Code Phon e Number [facility] [address] [place] [address] SERVICES BUN (11/15/2017 6:03 EDT) Pathologist Sig nature BUN 11 10 - 26 mg/dl [facility] LABORATO RY SERVICES Specimen Blood specimen (specimen) - Blood Performing Organization Address City/State/ZIP Code Phon e Number [facility] [address] [place] [address] SERVICES ELECTROLYTES (11/15/2017 6:03 EDT) Pathologist Sig nature Sodium 138 136 - 145 mEq/L [facility] SERVICES Potassium 4.1 3.5 - 5.0 mEq/L [facility] Chloride 105 96 - 110 mEq/L [facility] LABORAT ORY SERVICES CO2 25 22 - 32 mEq/L [facility] LABOR[facility] R[facility] SERVICES Specimen Blood specimen (specimen) - Blood Performing Organization Address City/[facility]/ZIP Code Phon e Number [facility] [address] [place] [address] SERVICES (ABNORMAL) COMPLETE BLOOD COUNT AND DIFFERENTIAL (11/14/2017 5:39 EDT) Pathologist Sig nature WBC 9.63 4.0 - 12.4 [facility] K/m LABORATORY SERVICES RBC 3.58 (L) 3.86 - 5.04 [facility] M/[facility] LABORATORY SERVICES Hemoglobin 10.9 (L) 11.6 - 15.2 [facility] gm/dl LABORATORY SERVICES HCT 33.7 (L) 34.9 - 44.4 % [facility] LABORATORY SERVICES MCV 94 81 - 98 fl [facility] SERVICES MCH 30.4 26.7 - 33.3 pg [facility] LABORAT[facility] SERVICES MCHC 32.3 32.1 - 35.9 [facility] gm/dl LABORATORY SERVICES RDW-CV 13.2 <14.7 % [facility] LABORATORY SERVICES RDW-SD 45.9 <50.4 fl [facility] LAB[facility] SERVICES PLT 165 141 - 377 K/[facility] LABORATORY SERVICES MPV 10.1 9.5 - 12.7 fl [facility] LABORAT[facility] SERVICES Neutrophils 78.8 % [facility] SERVICES Lymphocytes 9.7 % [facility] SERVICES Monocytes 10.3 % [facility] SERVICES Eosinophils 0.5 % [facility] SERVICES Basophils 0.1 % [facility] SERVICES Immature Grans 0.6 % [facility] LABORAT[facility] SERVICES ABS Neutrophils 7.59 2.20 - 8.85 [facility] K/[facility] LABORATORY SERVICES ABS Lymphs 0.93 (L) 1.09 - 3.30 [facility] K/[facility] LABORATORY SERVICES ABS Monocytes 0.99 (H) 0.1 - 0.8 /[facility] LABORATORY SERVICES ABS Eosinophils 0.05 0.03 - 0.61 [facility] K/[facility] LABORATORY SERVICES ABS Basophils 0.01 0.01 - 0.11 [facility] K/[facility] LABORATORY SERVICES ABS Immature Grans 0.06 0 - 0.06 /[facility] LABORATORY SERVICES Type of Diff: Automated [facility] LABORAT[facility] SERVICES Specimen Blood specimen (specimen) - Blood Performing Organization Address City/State/ZIP Code Phon e Number [facility] [address] [place] [address] SERVICES CREATININE (11/14/2017 5:39 EDT) Creatinine 0.62 0.52 - 1.04 [facility] mg/dl LABORATORY SERVICES GFR, Calculated 88 >60 [facility] Comment: ml/min/1.73m2 LABORATORY eGFR calculated using CKD-EPI equation for SERVICES non Americans. Multiply eGFR by 1.16 for Americans. Specimen Blood specimen (specimen) - Blood Performing Organization Address City/State/ZIP Code Phon e Number [facility] [address] [place] [address] SERVICES BUN (11/14/2017 5:39 EDT) Pathologist Sig nature BUN 16 10 - 26 mg/dl [facility] LABORATO RY SERVICES Specimen Blood specimen (specimen) - Blood Performing Organization Address City/State/ZIP Code Phon e Number [facility] [address] [place] [id number] SERVICES ELECTROLYTES (11/14/2017 5:39 EDT) Pathologist Sig nature Sodium 136 136 - 145 mEq/L [facility] LABOR[facility] T[facility] SERVICES Potassium 4.6 3.5 - 5.0 mEq/L [facility] LABOR[facility] T[facility] SERVICES Chloride 107 96 - 110 mEq/L [facility] LABORAT ORY SERVICES CO2 23 22 - 32 mEq/L [facility] Specimen Blood specimen (specimen) - Blood Performing Organization Address City/State/ZIP Code Phon e Number [facility] [address] [place] [address] HEAD WO CONTRAST (11/13/2017 17:45 EDT) Anatomical Region Laterality Modality Other Specimen Narrative [facility] - 11/14/2017 9:[address] HEAD WO CONTRAST ??11/13/2017 5:45 PM Clinical History/Comments: Disorientation. Comparison: November 13, 2017 and September 14, 2017. Technique: Axial noncontrast CT images of the head were obtained with coronal and sagittal reformations. Findings There has been recent bifrontal cranioto my. A small amount of subcutaneous emphysema is demonstrated i n the overlying scalp. Pneumocephalus, predominantly over the r ight anterior frontal lobes has decreased slightly in comparison to previous study. A small amount of extra-axial hemorrhage over th e anterior frontal lobes is again demonstrated. No new intracranial hemorrhage is identified. Small left frontal lobe infarcts are aga in noted in the left superior frontal gyrus and within the le ft frontal lobe more inferiorly, just posterolateral to the a neurysm clip. An aneurysm clip is demonstrated within the anterior cerebral artery cistern. Vascular hyperdensities are noted in the right greater than left frontal lobes, which are not significant ly changed from the most recent head CT. They are new compared wi th the preoperative CT scan in August 2017. This may reflect high dens ity thrombus, ??within draining veins. Vascular calcifications are also demonstrated consistent with intracranial atheroscler osis, similar to prior studies. The ventricles are normal in caliber. Th ere is no midline shift. The basilar cisterns are patent. The cerebel lar tonsils are in normal position. There has been previous bilateral lens r eplacement. The paranasal sinuses and mastoid air ce lls are essentially clear. Impression: 1. 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 2. Small infarcts within the left fronta l lobe, similar in appearance to the most recent comparison study. 3. New vascular hyperdensity within the frontal lobes, greater on the right than the left compared with th e preoperative study from August 2017 but unchanged from the most re cent examination. In the absence of interval vascular embolizatio n, this may reflect high density thrombus within draining veins. 4. Intracranial atherosclerosis. Procedure Note Shante Robles MD - 11/14/2017 CT HEAD WO CONTRAST 11/13/2017 5:45 PM Clinical History/Comments: Disorientation. Comparison: November 13, 2017 and September 14, 2017. Technique: Axial noncontrast CT images of the head were obtained with coronal and sagittal reformations. Findings There has been recent bifrontal cranioto my. A small amount of subcutaneous emphysema is demonstrated i n the overlying scalp. Pneumocephalus, predominantly over the r ight anterior frontal lobes has decreased slightly in comparison to previous study. A small amount of extra-axial hemorrhage over th e anterior frontal lobes is again demonstrated. No new intracranial hemorrhage is identified. Small left frontal lobe infarcts are aga in noted in the left superior frontal gyrus and within the le ft frontal lobe more inferiorly, just posterolateral to the a neurysm clip. An aneurysm clip is demonstrated within the anterior cerebral artery cistern. Vascular hyperdensities are noted in the right greater than left frontal lobes, which are not significant ly changed from the most recent head CT. They are new compared wi th the preoperative CT scan in August 2017. This may reflect high dens ity thrombus, within draining veins. Vascular calcifications are also demonstrated consistent with intracranial atheroscler osis, similar to prior studies. The ventricles are normal in caliber. Th ere is no midline shift. The basilar cisterns are patent. The cerebel lar tonsils are in normal position. There has been previous bilateral lens r eplacement. The paranasal sinuses and mastoid air ce lls are essentially clear. Impression: 1. 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 2. Small infarcts within the left fronta l lobe, similar in appearance to the most recent comparison study. 3. New vascular hyperdensity within the frontal lobes, greater on the right than the left compared with th e preoperative study from August 2017 but unchanged from the most re cent examination. In the absence of interval vascular embolizatio n, this may reflect high density thrombus within draining veins. 4. Intracranial atherosclerosis. Performing Organization Address City/State/ZIP Code Phon e Number [facility] CT HEAD WO CONTRAST (11/13/2017 4:19 EDT) Anatomical Region Laterality Modality Other Specimen Narrative [facility] - 11/13/2017 9:[address] HEAD WO CONTRAST ??11/13/2017 4:19 AM Signs and Symptoms/Comments: ?? 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 Axial non-contrast CT images of the head were obtained from the vertex through the foramen magnum with c oronal reformations. 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 A small amount of extra -axial hemorrhage is seen overlying the frontal lobes. There is a moderate amount of pneumocephalus. Expected postsurgical ch anges are present in the skull and soft tissues. There is there has been development of h ypodensity in the medial left frontal lobe in the left [place]y. White matter hypodensities are unchanged compared to prior. The ventricles and sulci are within normal l imits. There is no midline shift. The basal cisterns are patent. At herosclerotic calcification is seen in the carotid and vertebral art eries. Impression: 1. 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 2. ??Small amount expected of extra-axia l hemorrhage and pneumocephalus status post aneurysm clip ping These findings were discussed with Dr. Agnieszka powell by Dr. Sal Barr at 11/13/2017 5:50 AM. I have personally reviewed the images an d the above interpretation and agree with the findings. 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 A small amount of extra -axial hemorrhage is seen overlying the frontal lobes. There is a moderate amount of pneumocephalus. Expected postsurgical ch anges are present in the skull and soft tissues. There is there has been development of h ypodensity in the medial left frontal lobe in the left [place] territ [place]y. White matter hypodensities are unchanged compared to prior. The ventricles and sulci are within normal l imits. There is no midline shift. The basal cisterns are patent. At herosclerotic calcification is seen in the carotid and vertebral art eries. Impression: 1. Infarction of the left frontal lobe i n the [place] territory. 2. Small amount expected of extra-axial hemorrhage and pneumocephalus status post aneurysm clip ping These findings were discussed with Dr. Agnieszka powell by Dr. Sal Barr at 11/13/2017 5:50 AM. I have personally reviewed the images an d the above interpretation and agree with the findings. Performing Organization Address City/State/ZIP Code Phon e Number [facility] (ABNORMAL) COMPLETE BLOOD COUNT AND DIFFERENTIAL (11/13/2017 3:16 EDT) Pathologist Sig nature WBC 9.85 4.0 - 12.4 [facility] K/[facility] LABORATORY SERVICES RBC 3.75 (L) 3.86 - 5.04 [facility] M/[facility] LABORATORY SERVICES Hemoglobin 11.4 (L) 11.6 - 15.2 [facility] gm/dl LABORATORY SERVICES HCT 34.3 (L) 34.9 - 44.4 % [facility] MCV 92 81 - 98 fl [facility] MCH 30.4 26.7 - 33.3 pg [facility] MCHC 33.2 32.1 - 35.9 [facility] gm/dl LABORATORY SERVICES RDW-CV 13.1 <14.7 % [facility] RDW-SD 43.1 <50.4 fl [facility] PLT 171 141 - 377 [facility] MPV 9.5 9.5 - 12.7 fl [facility] Neutrophils 85.8 % [facility] Lymphocytes 4.1 % [facility] Monocytes 9.7 % [facility] Eosinophils 0.0 % [facility] Basophils 0.1 % [facility] Immature Grans 0.3 % [facility] ABS Neutrophils 8.45 2.20 - 8.85 [facility] LABORATORY SERVICES ABS Lymphs 0.40 (L) 1.09 - 3.30 [facility] ABS Monocytes 0.96 (H) 0.1 - 0.8 K/[facility] LABORATORY SERVICES ABS Eosinophils 0.00 (L) 0.03 - 0.61 [facility] K/[facility] LABORATORY SERVICES ABS Basophils 0.01 0.01 - 0.11 [facility] K/[facility] LABORATORY SERVICES ABS Immature Grans 0.03 0 - 0.06 K/[facility] LABORATORY SERVICES Type of Diff: Automated [facility] Specimen Blood specimen (specimen) - Blood Performing Organization Address [facility]/ZIP [facility] Phon e Number [facility] [address] [place] [address] SERVICES CREATININE (11/13/2017 3:16 EDT) Creatinine 0.71 0.52 - 1.04 [facility] mg/dl LABORATORY SERVICES GFR, Calculated 84 >60 [facility] Comment: ml/min/1.73m2 LABORATORY eGFR calculated using CKD-EPI equation for SERVICES non Americans. Multiply eGFR by 1.16 for Americans. Specimen Blood specimen (specimen) - Blood Performing Organization Address City/State/ZIP Code Phon e Number [facility] [address] [place] [address] SERVICES BUN (11/13/2017 3:16 EDT) Pathologist Sig nature BUN 15 10 - 26 mg/dl [facility] Specimen Blood specimen (specimen) - Blood Performing Organization Address City/State/ZIP [facility] Phon e Number [facility] [address] [place] [address] SERVICES ELECTROLYTES (11/13/2017 3:16 EDT) Pathologist Sig nature Sodium 138 136 - 145 mEq/L [facility] Potassium 4.7 3.5 - 5.0 mEq/L [facility] Chloride 108 96 - 110 mEq/L [facility] CO2 22 22 - 32 mEq/L [facility] Specimen Blood specimen (specimen) - Blood Performing Organization Address City/State/ZIP Code Phon e Number [facility] [address] [place] [address] SERVICES MRSA PCR (11/12/2017 14:10 EDT) Pathologist Sig nature Result Methicillin susceptible [facility] Staphylococcus aureus LABORATORY SERVICES (MSSA) DNA detected by PCR. Specimen Other (qualifier value) - Nasal Performing Organization Address City/[facility]/ZIP Code Phon e Number [facility] [address] [place] [address] SERVICES (ABNORMAL) BLOOD GAS, CG8 ISTAT (11/12/2017 9:00 EDT) pH, i-STAT 7.41 7.35 - 7.45 [facility] pCO2, i-STAT 44 35 - 45 mmHg [facility] pO2, i-STAT 192 (H) 80 - 105 mmHg [facility] TCO2, i-STAT 29 (H) 23 - 27 mEq/L [facility] O2 Saturation 100 (H) 95 - 98 % [facility] Sodium, i-STAT 142 136 - 145 [facility] mEq/L LABORATORY SERVICES Potassium, i-STAT 3.7 3.5 - 5.0 [facility] mEq/L LABORATORY SERVICES Glucose, I-STAT 97 70 - 100 [facility] mg/dl LABORATORY SERVICES Hematocrit,iSTAT 33 (L) 34.9 - 44.4 % [facility] Calcium, Ionized 1.21 1.12 - 1.32 [facility] mmol/L LABORATORY SERVICES Base Excess, 3 [facility] i-STAT LABORATORY SERVICES Sample Type ARTERIAL [facility] gallery host ID [id number] [facility] Comment: LABORATORY Test performed by Anesthesia. SERVICES For non-arterial reference ranges, please see ISTAT procedure. Specimen Blood Performing Organization Address City/State/ZIP Code Phon e Number [facility] [address] [place] [address] SERVICES PREPARE RED BLOOD CELLS (11/12/2017 8:41 EDT) Product Code [id number] [facility] Donor Number [id number] [facility] Unit ABO O [facility] Unit Rh NEG [facility] Unit Status RE^Released From [facility] BLOOD BANK Product Expiration [id number] [facility] Unit Blood Type 9500 [facility] BLOOD BANK Coding System [id number] [facility] Specimen Performing Organization Address City/[facility]/ZIP Code Phon e Number [facility] [address] BLOOD BANK PREPARE RED BLOOD CELLS (11/12/2017 8:41 EDT) Product Code [id number] [facility] Donor Number [id number] [facility] Unit ABO O [facility] Unit Rh NEG [facility] Unit Status RE^Released From [facility] BLOOD BANK Product Expiration [id number] [facility] BLOOD BANK Unit Blood Type 95[address] [facility] BLOOD BANK Coding System [id number] [facility] Specimen Performing Organization Address City/[facility]/ZIP Code Phon e Number [facility] [address] [place] [address] BLOOD BANK PREPARE RED BLOOD CELLS (11/12/2017 8:41 EDT) Product Code [id number] [facility] Donor Number [id number] [facility] Unit ABO O [facility] Unit Rh NEG [facility] Unit Status RE^Released From [facility] BLOOD BANK Product Expiration [id number] [facility] BLOOD BANK Unit Blood Type 95[address] [facility] BLOOD BANK Coding System [id number] [facility] Specimen Performing Organization Address City/State/ZIP Code Phon e Number [facility] [address] [facility] [place], [place] [id number] [place] [address] BLOOD BANK PREPARE RED BLOOD CELLS (11/12/2017 8:41 EDT) Product Code [id number] [facility] Donor Number [id number] [facility] Unit ABO O [facility] Unit Rh NEG [facility] Unit Status RE^Released From [facility] BLOOD BANK Product Expiration [id number] [facility] BLOOD BANK Unit Blood Type 9500 [facility] BLOOD BANK Coding System [id number] [facility] Specimen Performing Organization Address City/[facility]/ZIP Code Phon e Number [facility] [address] [facility]. [address] BLOOD BANK ABO/RH (11/12/2017 7:54 EDT) Pathologist Sig nature ABO O [facility] K Rh Factor Negative [facility] K Specimen Performing Organization Address City/State/ZIP Code Phon e Number [facility] [address] [facility] BLOOD BANK TYPE AND SCREEN (11/12/2017 7:54 EDT) ABO O [facility] Rh Factor Negative [facility] Antibody Screen Negative [facility] Comment: BLOOD BANK Patient is electronic crossmatch eligible. Units available upon request for transfusion. Specimen Expires: 11/15/2017 @ 23:59 [facility] Specimen Performing Organization Address City/[facility]/ZIP Code Phon e Number [facility] [address] [facility] BLOOD BANK documented in this encounter Visit Diagnoses Diagnosis Cerebral aneurysm, nonruptured documented in this encounter Administered Medications Inactive Administered Medications - up to 3 most recent administrations Medication Order MAR Action Action Date Dose Rate Site acetaminophen (TYLENOL) solution unit do se cup 650 mg 650 mg, per ng tube, EVERY 4 HOURS PRN, Starting on Sun11/12/17 at 1232, Until Sun11/16/17 at 1326, Pain, Routine acetaminophen (TYLENOL) suppository 650 mg 650 mg, rectal, EVERY 4 HOURS PRN, Starting on 10/25 at 1232, Until Sun11/16/17 at 1326, Pain, Routine acetaminophen (TYLENOL) tablet 650 mg Given 11/16/2017 10:10 EDT 650 mg 650 mg, oral, EVERY 4 HOURS PRN, Starting on Sun11/12/17 at 1232, Until Sun11/16/17 at 1326, Pain, Routine Given 11/16/2017 6:36 EDT 650 mg Given 11/15/2017 16:45 EDT 650 mg albumin (BUMINATE) 5 % infusion 12.5 g Given 11/14/2017 11:30 EDT 12.5 g 12.5 g, intravenous, Administer over 30 Minutes, NOW X1, 1 dose, On Sun11/14/17 at 1045, Routine aspirin EC tablet 325 mg Given 11/16/2017 8:28 EDT 325 mg 325 mg, oral, DAILY, First dose on Theodora 11/15/17 at 1330, Until Discontinued, Routine Given 11/15/2017 14:02 EDT 325 mg ceFAZolin (ANCEF) syringe 1 g Given by Other 11/12/2017 9:05 EDT 1 g 1 g, intravenous, Administer over 10 Minutes, PRE-OP ONCE, 1 dose, On Sun11/12/17 at 1015, Routine ceFAZolin (ANCEF) syringe 2 g Given by Other 11/12/2017 7:59 EDT 2 g 2 g, intravenous, Administer over 10 Minutes, PRE-OP ONCE, 1 dose, On Sun11/12/17 at 0700, Routine, Pre-Op DOS Rx Approved docusate sodium (COLACE) capsule 100 mg Given 11/16/2017 8:27 EDT 100 mg 100 mg, oral, 2 TIMES DAILY, First dose on Sun11/12/17 at 1300, Until Discontinued, Routine Given 11/15/2017 20:06 EDT 100 mg Given 11/15/2017 8:40 EDT 100 mg enoxaparin (LOVENOX) injection 40 mg Given 11/15/2017 20:06 EDT 40 mg 40 mg, subcutaneous, AT BEDTIME, First dose on Theodora 11/15/17 at 2100, Until Discontinued, Routine fentaNYL citrate (PF) 50 mcg/mL injection 25-50 Given 11/12/2017 13:34 EDT 25 mcg mcg 25-50 mcg, intravenous, EVERY 1 HOUR PRN, Starting on Sun11/12/17 at 1234, Until Sun11/13/17 at 0731, Pain, For breakthrough pain not controlled with oral medications., Routine, Release Given 11/12/2017 13:29 EDT 25 mcg hydrALAzine (APRESOLINE) 10 mg in sodium chloride Given 11/16/2017 6:37 EDT 10 mg (NS) 0.9 % 50 mL IVPB 10 mg, intravenous, Administer over 20 Minutes, EVERY 1 HOUR PRN, Starting on Sun11/13/17 at 0729, Until Sun11/16/17 at 1326, Routine Given 11/15/2017 2:25 EDT 10 mg HYDROmorphone injection (DILAUDID) 0.5 mg/1 mL Given 018 5:05 EDT 0.2 mg syringe 0.2 mg 0.2 mg, intravenous, ONCE PRN, 1 dose, Starting on Sun11/14/17 at 0454, Until Sun11/14/17 at 0505, Pain, Routine labetalol (TRANDATE) injection 10 mg Given 11/12/2017 13:27 EDT 10 mg 10 mg, intravenous, EVERY 1 HOUR PRN, Starting on Sun11/12/17 at 1310, Until Sun11/13/17 at 0731, High Blood Pressure, SBP >140, Routine lactated ringers (LR) infusion New Bag 11/12/2017 7:27 EDT 30 mL/hr 30 mL/hr IV at 30 mL/hr, 30 mL/hr, intravenous, CONTINUOUS, Starting on Sun11/12/17 at 0700, Until Sun11/12/17 at 1312, Routine, Pre-Op DOS Rx Approved levETIRAcetam (KEPPRA) tablet 500 mg Given 11/13/2017 20:24 EDT 500 mg 500 mg, oral, EVERY 12 HOURS, 14 doses, First dose on Sun11/12/17 at 2100, Last dose on Sun11/19/17 at 0900, Routine Given 11/13/2017 8:04 EDT 500 mg Given 11/12/2017 21:04 EDT 500 mg lisinopril (PRINIVIL, ZESTRIL) tablet 2. 5 mg Given 11/13/2017 8:05 EDT 2.5 mg 2.5 mg, oral, DAILY, First dose on Sun11/12/17 at 1330, Until Discontinued, Routine Given 11/12/2017 14:11 EDT 2.5 mg niCARdipine in NaCl 0.9% Rate Documented 11/12/2017 18:00 EDT 5 mg/hr 50 mL/hr (CARDENE) 20 mg/200 mL infusion 5 mg/hr (50 mL/hr), intravenous, CONTINUOUS, Starting on Sun11/12/17 at 1300, Until Sun11/13/17 at 0731, Routine, Release Rate Documented 11/12/2017 17:00 EDT 5 mg/hr 50 mL/hr New Bag 11/12/2017 16:55 EDT 5 mg/hr 50 mL/hr NIFEdipine ER (ADALAT CC) tablet 30 mg Given 11/16/2017 8:28 EDT 30 mg 30 mg, oral, DAILY, First dose on Sun11/12/17 at 1530, Until Discontinued, Routine Given 11/15/2017 8:40 EDT 30 mg Given 11/14/2017 10:12 EDT 30 mg ondansetron (PF) (ZOFRAN) injection 4 mg Given 11/14/2017 4:58 EDT 4 mg 4 mg, intravenous, EVERY 4 HOURS PRN, Starting on Sun11/12/17 at 1234, Until Sun11/14/17 at 0949, Nausea, Routine Given 11/12/2017 18:41 EDT 4 mg ondansetron (ZOFRAN-ODT) disintegrating tablet 4 mg 4 mg, oral, EVERY 4 HOURS PRN, Starting on Sun11/15/17 at 0836, Until Sun11/16/17 at 1326, Nausea, Routine oxyCODONE (ROXICODONE) immediate release tablet Given 11/14/2017 4:50 EDT 5 mg 5-15 mg 5-15 mg, oral, EVERY 4 HOURS PRN, Starting on Sun11/12/17 at 1234, Until Sun11/14/17 at 0759, Pain, discomfort, Routine Given 11/14/2017 0:09 EDT 5 mg Given 11/13/2017 10:37 EDT 5 mg senna (SENOKOT) tablet 1 Tab Given 11/16/2017 8:27 EDT 1 Tablet 1 Tablet, oral, 2 TIMES DAILY, First dose on Sun11/14/17 at 0900, Until Discontinued, Routine Given 11/15/2017 8:40 EDT 1 Tablet Given 11/14/2017 21:45 EDT 1 Tablet sodium chloride 0.9 % (NS) infusion Rate Documented 11/16/2017 1:00 EDT 75 mL/hr at 75 mL/hr, intravenous, CONTINUOUS, Starting on Sun11/14/17 at 1045, Until Sun11/16/17 at 1326, Routine Rate Documented 11/16/2017 0:00 EDT 75 mL/hr New Bag 11/15/2017 16:45 EDT 75 mL/hr sodium chloride 0.9 % with KCl 20 mEq/L New Bag 11/14/2017 5:15 ED T 75 mL/hr infusion at 75 mL/hr, intravenous, CONTINUOUS, Starting on Sun11/12/17 at 1330, Until Sun11/14/17 at 0756, Routine Rate Documented 11/13/2017 16:00 EDT 75 mL/hr New Bag 11/13/2017 15:54 EDT 75 mL/hr tiotropium (SPIRIVA) 18 mcg inhalation capsule Given 018 8:01 EDT 18 mcg 18 mcg 18 mcg, inhalation, DAILY, First dose on Sun11/12/17 at 1330, Until Discontinued, Routine Given 11/15/2017 8:29 EDT 18 mcg Given 11/14/2017 9:40 EDT 18 mcg traMADol (ULTRAM) tablet 50 mg Given 11/15/2017 4:17 EDT 50 mg 50 mg, oral, Once (NO Time Specified), 1 dose, Starting on Sun11/15/17 at 0405, Until Sun11/15/17 at 0417, Routine documented in this encounter Discontinued Medications Medication Sig Discontinue Reason Start Date End Date ibuprofen (MOTRIN) 200 Take 200 mg by mouth Therapy completed 10/31/2017 mg tablet every 6 hours as needed for Pain. aspirin 81 mg EC tablet Take 81 mg by mouth 11/16/2017 daily. documented as of this encounter Active and Recently Administered Medications Times are shown in EDT. Scheduled Medication Order 11/14/2017 11/15/2017 11/16/2017 albumin (BUMINATE) 5 % infusion 12.5 g (COMPLETED) 113 0 (Given - Provider: Benito Douglas RN) 12.5 g, intravenous, Administer over 30 Minutes, NOW X1, 1 dose, Sun11/14/17 at 1045, Routine aspirin EC tablet 325 mg 1402 (Given - Provider: Benito Douglas RN) 0828 (Given - Provider: Henny Schofield, [place]) 325 mg, oral, DAILY, First dose on Sun at 1330, Until Discontinued, Routine docusate sodium (COLACE) capsule 100 mg 1012 (Not Give n - Provider: Benito Douglas RN - Reason: Patient/family refused)2146 (Hold - Provider: Surya Ritter - Reason: Patient/family refused) 0840 (Given - Provider: Benito Douglas RN)2005 (Given - Provider: Surya Ritter) 08 (Given - Provider: Henny Schofield, [place]) 100 mg, oral, 2 TIMES DAILY, First dose on Sun11/12/17 at 1300, Until Discontinued, Routine enoxaparin (LOVENOX) injection 40 mg 2005 (Given - Provider: Surya Ritter) 40 mg, subcutaneous, AT BEDTIME, First d ose on Sun11/15/17 at 2100, Until Discontinued, Routine NIFEdipine ER (ADALAT CC) tablet 30 mg 1012 (Given - P rovider: Benito Douglas RN) 0840 (Given - Provider: Benito Douglas RN) 0828 (Giv en - Provider: Henny Schofield, PARISH) 30 mg, oral, DAILY, First dose on Sun at 1530, Until Discontinued, Routine senna (SENOKOT) tablet 1 Tab 1012 (Not Given - Provide r: Benito Douglas RN - Reason: Patient/family refused)2144 (Given - Provider: Surya Ritter) 0840 (Given - Provider: Benito Douglas RN)2008 (Not Given - Provider: Surya Ritter - Reason: Patient/family refused) 08 (Given - Provider: Henny gore RN) 1 Tab, oral, 2 TIMES DAILY, First dose o n Sun11/14/17 at 0900, Until Discontinued, Routine tiotropium (SPIRIVA) 18 mcg inhalation capsule 18 mcg 0940 (Given - Provider: Mary Anne Cagle, RT) 0829 (Given - Provider: Meño Escobedo, RT) 0801 (Given - Provider: Khris Singh, RT) 18 mcg, inhalation, DAILY, First dose on Sun11/12/17 at 1330, Until Discontinued, Routine traMADol (ULTRAM) tablet 50 mg (COMPLETED) 0417 (Given - Provider: Azra Solano, PARISH) 50 mg, oral, ONCE, 1 dose, Starting Theodora 11/15/17 at 0405, Until Sun11/15/17 at 0417, Routine Continuous Medication Order 11/14/2017 11/15/2017 11/16/2017 sodium chloride 0.9 % (NS) infusion 1224 (New Bag - Pr ovider: Benito Douglas RN) 0043 (New Bag - Provider: Azra Solano RN)0841 (Rate Documented - Provider: Benito Douglas RN)1645 (New Bag - Provider: Benito Douglas RN) 0000 (Rate Documented - Provider: Bhavani Shine RN)0100 (Rate Documented - Provider: Bhavani Shine RN)1000 (Completed - Provider: Henny Schofield RN) at 75 mL/hr, intravenous, CONTINUOUS, St arting Sun11/14/17 at 1045, Until Sun11/16/17 at 1326, Routine sodium chloride 0.9 % with KCl 20 mEq/L infusion ([facility]) 0515 (New Bag - Provider: Azra Solano RN) at 75 mL/hr, intravenous, CONTINUOUS, St arting Sun11/12/17 at 1330, Until Sun11/14/17 at 0756, Routine PRN Medication Order 11/14/2017 11/15/2017 11/16/2017 acetaminophen (TYLENOL) solution unit dose cup 650 mg( Linked Group 1) 0448 (See Alternative - Provider: Azra Solano RN)1012 (See Alternative - Provider: Benito Douglas RN)1435 (See Alternative - Provider: Benito Douglas RN)1847 (See Alternative - Provider: Benito Douglas, PARISH) 0037 (See Alternative - Provider: Azra Solano RN)0417 (See Alternative - Provider: Azra Solano RN)0840 (See Alternative - Provider: Benito Douglas RN)1242 (See Alternative - Provider: Benito Douglas RN) 0636 (See Alternative - Provider: Henry Mccann, RN)1010 (See Alternative - Provider: Henny Schofield, PARISH) 650 mg, per ng tube, EVERY 4 HOURS PRN, Starting 11/12/17 at 1232, Until Sun11/16/17 at 1326, Pain, Routine 1645 (See Alternative - Provider: Benito Dogulas RN) acetaminophen (TYLENOL) suppository 650 mg(Linked Grou p 1) 0448 (See Alternative - Provider: Azra Solano RN)1012 (See Alternative - Provider: Benito Douglas RN)1435 (See Alternative - Provider: Benito Douglas RN)1847 (See Alternative - Provider: Benito Douglas RN) 0037 (See Alternative - Provider: Azra Solano RN)0417 (See Alternative - Provider: Azra Solano RN)0840 (See Alternative - Provider: Benito Douglas RN)1242 (See Alternative - Provider: Benito Douglas RN) 0636 (See Alternative - Provider: Henry Mccann, PARISH)1010 (See Alternative - Provider: Henny Schofield, PARISH) 650 mg, rectal, EVERY 4 HOURS PRN, Start ing 11/12/17 at 1232, Until Sun11/16/17 at 1326, Pain, Routine 1645 (See Alternative - Provider: Benito Douglas RN) acetaminophen (TYLENOL) tablet 650 mg(Linked Group 1) 0448 (Given - Provider: Azra Solano RN)1012 (Given - Provider: Benito Douglas RN)1435 (Given - Provider: Benito Douglas RN)1847 (Given - Provider: Benito Douglas RN) 0037 (Given - Provider: Azra Solano RN)0417 (Given - Provider: Azra Solano RN)0840 (Given - Provider: Benito Douglas RN)1242 (Given - Provider: Benito Douglas RN)1645 (Given - Provider: Benito Douglas RN) 0636 (Given - Provider: Bhavani Shine RN)1010 (Given - Provider: Henny Schofield RN) 650 mg, oral, EVERY 4 HOURS PRN, Startin g Sun11/12/17 at 1232, Until Sun11/16/17 at 1326, Pain, Routine bisacodyl (DULCOLAX) suppository 10 mg 10 mg, rectal, EVERY 48 HOURS PRN, Start ing Sun11/14/17 at 0000, Until Sun11/16/17 at 1326, Constipation, Routine calcium carbonate (TUMS) 200 mg calcium (500 mg) per chewable tablet tablet,chewable 1 Tab 1 Tab, oral, EVERY 4 HOURS PRN, Starting 11/12/17 at 1234, Until Sun11/16/17 at 1326, Heartburn, Routine hydrALAzine (APRESOLINE) 10 mg in sodium chloride (NS) 0.9 % 50 mL IVPB 0225 (Given - Provider: Azra Solano RN) 0637 (Given - Provider: Bhavani chavez RN - Comment: BP 150/82 Manual) 10 mg, intravenous, Administer over 20 M inutes, EVERY 1 HOUR PRN, Starting 11/13/17 at 0729, Until Sun11/16/17 at 1326, Routine HYDROmorphone injection (DILAUDID) 0.5 mg/1 mL syringe 0.2 mg (COMPLETED) 0505 (Given - Provider: Azra Solano RN) 0.2 mg, intravenous, ONCE PRN, 1 dose, S tarting Sun11/14/17 at 0454, Until Sun11/14/17 at 0505, Pain, Routine ondansetron (PF) (ZOFRAN) injection 4 mg (CANCELED) 04 58 (Given - Provider: Azra Solano RN) 4 mg, intravenous, EVERY 4 HOURS PRN, St arting Sun11/12/17 at 1234, Until Sun11/14/17 at 0949, Nausea, Routine ondansetron (ZOFRAN-ODT) disintegrating tablet 4 mg 4 mg, oral, EVERY 4 HOURS PRN, Starting Theodora 11/15/17 at 0836, Until Sun11/16/17 at 1326, Nausea, Routine oxyCODONE (ROXICODONE) immediate release tablet 5-15 m g (CANCELED) 0009 (Given - Provider: Azra Solano RN)0450 (Given - Provider: Azra Solano RN) 5-15 mg, oral, EVERY 4 HOURS PRN, Starti ng Sun11/12/17 at 1234, Until Sun11/14/17 at 0759, Pain, discomfort, Routine Linked Groups Order Group 1: acetaminophen (TYLENOL) tablet 650 mgJump to med 650 mg, oral, EVERY 4 HOURS PRN, Startin g Sun11/12/17 at 1232, Until Sun11/16/17 at 1326, Pain, Routine Or acetaminophen (TYLENOL) solution unit dose cup 650 mgJump to med 650 mg, per ng tube, EVERY 4 HOURS PRN, Starting Sun11/12/17 at 1232, Until Sun11/16/17 at 1326, Pain, Routine Or acetaminophen (TYLENOL) suppository 650 mgJump to med 650 mg, rectal, EVERY 4 HOURS PRN, Start ing Sun11/12/17 at 1232, Until Sun11/16/17 at 1326, Pain, Routine documented in this encounter Orders Medications Ordered That Might Not Have Count Last Ord ered Date First Ordered Date Been Administered ondansetron (ZOFRAN-ODT) disintegrating 11/16/19 tablet 4 mg albumin (BUMINATE) 5 % infusion 25 g 11/14/2017 scopolamine (TRANSDERM-SCOP) 1 mg over 3 018 days patch 1 Patch traMADol (ULTRAM) tablet 50 mg 11/14/2017 acetaminophen (TYLENOL) solution unit dose 11/12 cup 650 mg acetaminophen (TYLENOL) suppository 650 mg 11/12 bisacodyl (DULCOLAX) suppository 10 mg 8 calcium carbonate (TUMS) 200 mg calcium 11/13/19 18 (500 mg) per chewable tablet tablet,chewable 1 Tab hydrALAzine (APRESOLINE) 10 mg in sodium 018 chloride (NS) 0.9 % 50 mL IVPB hydrALAzine (APRESOLINE) injection 10 mg 018 levETIRAcetam (KEPPRA) 500 mg in sodium 11/13/19 18 chloride (NS) 0.9 % 100 mL IVPB NIFEdipine XL (PROCARDIA-XL) tablet 30 mg 1 2017 Procedures Count Last Ordered Date First Ordered Date ECG REPORT - SCANNED 2 11/20/2017 11/08/2017 IMPLANT RECORD - SCANNED 2 11/20/2017 018 EEG - SCANNED 1 11/13/2017 Nursing Count Last Ordered Date First Ordered Date CARREON CATHETER - DISCONTINUE 1 11/13/2017 REMOVE ARTERIAL LINE 1 11/13/2017 CONTRAINDICATION TO ANTICOAGULATION 1 11/12/2017 THERAPY INSERT CARREON CATHETER 1 11/12/2017 PATIENT NOT A CANDIDATE FOR MECHANICAL VTE 1 11/12 PROPHYLAXIS PT Count Last Ordered Date First Ordered Date PT EVALUATION AND TREAT 1 11/13/2017 Respiratory Care Count Last Ordered Date First Ordered Date DRY POWDERED OR METERED DOSE INHALER 4 11/15/2017 11/13/2017 RESPIRATORY CARE EVALUATION ONLY 2 11/12/2017 IV Count Last Ordered Date First Ordered Date IV REQUEST 2 11/15/2017 11/12/2017 Admission Count Last Ordered Date First Ordered Date ORDERS - SCANNED 1 11/13/2017 STATUS: INPATIENT DOSA/DOPA DAY OF 1 11/12/2017 SURGERY/PROCEDURE ADMISSION Transfer Count Last Ordered Date First Ordered Date NOTIFY PPS OF DISCHARGE COMPLETE 1 11/16/2017 PPS NOTIFICATION OF PATIENT ARRIVAL ON 3 11/12/2017 UNIT PPS NOTIFICATION OF SENDING PATIENT OFF 1 11/14/19 18 THE UNIT TRANSFER PATIENT 1 11/13/2017 Discharge Count Last Ordered Date First Ordered Date DISCHARGE PATIENT 1 11/16/2017 documented in this encounter Care Teams Content Assistant Relationship Specialty Start Date End Date Raquel Martin PA-C PCP - General 08/28/17 [address] [place] [id number] documented as of this encounter
--- OUTSIDE RECORDS SUMMARY | 2021-11-18 18:25 | XMS_ITS | Encounter Summary ---
:1940 Author Organization [facility] Address [address] [place] [address] Care Team Providers Name Role Phone Raquel Martin PA-C Primary Care Provider [phone] Reason for Referral Radiology Services (Routine) - Closed Specialty Diagnoses / Procedures Referred By Contact Refer red To Contact Diagnoses Cerebral aneurysm, nonruptured Dennis Henao MD Procedures IR CAROTID CEREBRAL BILATERAL [address] [phone] Referral ID Status Reason Start Date Expiration Date Visits Requ ested Visits Authorized [id number] Closed 09/27/2017 1 1 Reason for Visit Reason Comments Follow-up aneurysm Consult (Routine) - Specialty Report Received Specialty Diagnoses / Procedures Referred By Contact Refer red To Contact Neurosurgery Diagnoses Aneurysm of anterior cerebral artery Sohail Chaudhry Tranmer, Bruce Ia n, MD MD 111 [facility] [address] [phone] Referral ID Status Reason Start Expiration Visits Visits Date Date Requested Authorized [id number] Specialty Specialty 09/20/2017 1 1 Report Services Received Required Encounter Details Date Type Department Care Team Description 09/27/[address] [facility] Dennis Henao Ce rebral aneurysm, Neurosurgery - Paddy BARRAZA nonruptured (Primary [place] [address]) [address] [place] [address] [facility] [phone] [address]ilion, [address] [place] [phone] (Wo rk) Social History Tobacco Use Types Packs/Day Years Used Date Former Smoker Quit: 08/29/19 07 Smokeless Tobacco: Never Used Alcohol Use Standard Drinks/Week Comments No 0 (1 standard drink = 0.6 oz pure alcoho l) Sex Assigned at Date Recorded Not on file documented as of this encounter Last Filed Vital Signs Vital Sign Reading Time Taken Comments Blood Pressure 138/84 09/27/2017 1313 EDT Pulse 64 09/27/2017 1313 EDT Temperature - - Respiratory Rate 12 09/27/2017 1313 EDT Oxygen Saturation - - Inhaled Oxygen Concentration - - Weight - - Height - - Body Mass Index - - documented in this encounter Functional Status Functional Status Response Date of Assessment Because of a physical, mental, or emotional condition, No 09/27/2017 does this person have difficulty doing errands alone such as visiting a doctor's office or shopping? Cognitive Status Response Date of Assessment Because of a physical, mental, or emotional condition, No 09/27/2017 does this person have serious difficulty concentrating, remembering, or making decisions? documented as of this encounter Discharge Diagnoses Diagnosis I67.1 Cerebral aneurysm, nonruptured-I67 .1[ICD-10-CM] documented in this encounter Discharge Disposition Disposition Code Departure Means Destination Auto Discharge documented in this encounter Progress Notes Jenniffer Serrano MD - 09/27/2017 1300 EDT Outpatient Neurosurgery Clinic CHIEF COMPLAINT: HISTORY OF PRESENT ILLNESS: Ms Gann is a 77-year-old generally healthy female presenting today bulmaro incidental finding of an aneurysm on CT head. CT head was performed initially because of changes in vision the past couple of months. She saw her rubber mill operator who referred her to our distribution warehouse manager,Dr Sohail Chaudhry, who saw macular degeneration due to B12 deficiency and also performed a CT head with and without contrast. 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 She was referred to Dr Henao's office for this purpose. She is accompanied today by he r neighbor and her [id number] who have several questions regarding her aneurysm and its treatment. She denies any headaches, any dizziness, any family history of aneurysms or sudden . She is currently a nonsmoker. She quit smoking 10 years ago with a 95-kvoa-xyne smoking history. Her only medical history is hypertension, well controlled on oral medication. SOCIAL HISTORY: She lives in the [facility] with her dog independently. She lives close by to her children. PAST MEDICAL HISTORY: Hypertension, polymyalgia rheumatica in remission. PAST SURGICAL HISTORY: None relevant. PHYSICAL EXAM: She is awake and alert, conversant and making jokes. Face is symmetric. Hearing is intact. Her pupils that are equal, reactive on both sides. EOMI. Hearing intact bilaterally. No changesin facial sensation. Gait is balanced and coordinated; 5/5 strength in bilateral upper and lower extremities. Sensation intact throughout. 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 We discussed the benefits and risks of treatment versus observation of this, with a risk of rupture around 1% per year, and observation would be r easonable with her age. Ms Gann is quite anxious regarding not doing anything and is electing to pursue treatment, which is understandable. We recommend that she undergo a formal cerebral angiogram to better identify the architecture of the aneurysm itself as well as surrounding vessels and to guidefurther treatment, though surgery is likely the plan due to location. This was discussed with her. We will see her back in approximately 1 week following her cerebral angiogram and tentatively plan forsurgery in the next couple of months. She is in agreement with this plan and is very grateful for our care. The patient was seen and examined today with Dr Dennis Henao, and we will look forward to seeing her soon in followup. JENNIFFER SERRANO MD Dennis shen MD - 09/27/2017 1300 EDT This office note has been dictated. documented in this encounter Consult Notes Dennis Henao MD - 09/27/2017 0000 EDT [facility] NEUROLOGICAL SURGERY CONSULTATION - 09/27/2017 Raquel Martin PA-C [address] [address] Dear Garfieldtiffaniesamra: I had the pleasure of seeing your patient, Rehan Gann, in consultation in my neurosurgery office on09/27/2017. She was referred for assessment of a left A2 anterior cerebral artery aneurysm. I did have the opportunity of seeing her with my neurosurgery resident, Dr Jenniffer Serrano. She willdictate a more complete note. I agree with her assessment and treatment plan. This 77-year-old female underwent a CT scan for assessment of visual loss of her left eye. This visual deterioration of her left eye was assessed by Dr Korey Chaudhry our neuroophthalmologist. 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 This aneurysm is approximately 6 mm in size. It appears to be multilobulated. We have told Mrs Gann that the aneurysmis asymptomatic, but we did discuss the natural history of aneurysms and the risk of rupture and brain injury as a result of this. She is very anxious about this aneurysm. She would like it definitively treated. We did discuss surgical clipping of the aneurysm as well as endovascular coiling. Because she is so anxious and she is relatively healthy 77-year-old female, we did agree with her that it would be best to definitively treat this aneurysm. In order to get a better understanding and visualization of this aneurysm, I have asked her to undergo a cerebral angiogram. The angiogram will also give us information regarding the possibility of endovascular coiling. We will proceed with a cerebral angiogram and I will see her as soon as that has been done. We will keep you informed. Thanks for asking us to help with her care. Yours sincerely, Dennis Henao MD 07 48 AM - Dennis Henao MD en Dictation ID: [id number] cc: Raquel Martin PA-C, [address] [place] [address] Sohail Chaudhry MD, [facility] - Ophthalmology [address] [place] [id number] signed by Dennis Henao MD at 10/01/2017 7:29 EDTdocumented in this encounter Plan of Treatment Not on filedocumented as of this encounter Procedures Procedure Name Priority Date/Time Associated Diagnosis Comme nts IR CAROTID CEREBRAL Routine 10/10/2017 9:55 EDT Cerebral aneur ys, Results for this BILATERAL nonruptured procedure are i n the results section. documented in this encounter Results IR CAROTID CEREBRAL BILATERAL (10/10/2017 9:55 EDT) Anatomical Region Laterality Modality Other Specimen Narrative [facility] - 10/11/2017 16:50 EDT Preoperative diagnosis: Left pericallosal aneurysm Postoperative Diagnosis: Same Surgeons: Dr. Don Vela Stationary Fireman: Arron Mera, RT Anesthesia: Local with sedation Interventional procedure: None Catheterization of the following vessels : 1. Right common carotid artery 2. Right internal carotid artery 3. Left common carotid artery 4. Left internal carotid artery Angiographic interpretation of the follo wing images: 1. Bilateral cervical carotid artery ang iograms 2. Bilateral cerebral carotid artery ang iograms 3. Rotational left internal carotid kori ry angiogram Hemostasis: Mynx closure device Indications: The patient is a 77-year-ol d female with an aneurysm of the left pericallosal artery. Diagnostic angiogram is requested for treatment planning. Procedure in detail and findings: The ri sks and benefits of the procedure were explained to the patient and informed consent was obtained and signed. Prior to the proced ure, a timeout was completed verifying correct patient, date of , procedure, site, positioning and special equipment as li licable. The patient was brought to the neurointerventional suite and placed in the supine position upon the angiography table. Bot h groins were prepped and draped in sterile fashion. Lidocaine 1% was used for local anesthesia. A 19-gauge singlewall punctu re needle was used to access the right common femoral artery. The nee dle was exchanged over an introducer wire for a 5 Malawian sheath. H eparinized saline infusion was administered through the sheath and the catheter used during this procedure. A 5 Mal[place]ian Terumo angled glide catheter was advanced over a Glidewire into the right common carotid artery. Right common carotid artery cervical angiogram was performed in frontal and lateral projections. The angiogram shows no sign ificant stenosis at the origin of the internal carotid artery. T he external carotid branches are normal in their cervical course. The catheter was advanced under fluorosc opic guidance into the right internal carotid artery and an angiogram was performed in frontal and lateral projections. Right internal carotid artery cerebral angiogram shows satisfactory opacificati on of the internal carotid artery as well as the anterior and middl e cerebral arteries. The catheter was advanced into the left common carotid artery using fluoroscopic guidance and a cervical ang iogram was performed in frontal and lateral projections. Left ce rvical carotid artery angiogram shows a normal origin of the i nternal carotid artery. The external carotid artery branches are nor mal in their cervical course. The catheter was advanced under fluorosc opic guidance into the left internal carotid artery and a cerebral a ngiogram was performed in frontal and lateral projections. ??Left internal carotid artery cerebral angiogram shows satisfactory op acification of the internal carotid artery as well as the anterior a nd middle cerebral arteries. There is an irregular aneurysm projectin g from the pericallosal artery. The catheter was attached to automatic i njector and rotational angiogram was performed. Data from this angiogram were sent to the workstation for analysis. The aneurysm h as multiple lobes and measures 7.5 x 3.3 x 3.5 mm. This aneury sm has a wide neck and incorporates a frontal branch origin. Th e A1 and A2 segments measure 2.3 mm in greatest diameter. The catheter was removed. After thorough review of the images, the sheath was removed and a Mynx closure de vice was used to achieve hemostasis. Dr. Don Vela was present during the entire procedure and the interpretation of images. Impression: There is a wide necked, mult ilobed left pericallosal aneurysm measuring 7.5 mm in greatest di mension. PLAN: Follow-up with Dr. Mckeon for jeffrey gical planning. Procedure Note Don Vela MD - 10/11/2017 Preoperative diagnosis: Left pericallosa l aneurysm Postoperative Diagnosis: Same Surgeons: Dr. Don Vela Stationary Fireman: Arron Mera RT Anesthesia: Local with sedation Interventional procedure: None Catheterization of the following vessels : 1. Right common carotid artery 2. Right internal carotid artery 3. Left common carotid artery 4. Left internal carotid artery Angiographic interpretation of the follo wing images: 1. Bilateral cervical carotid artery ang iograms 2. Bilateral cerebral carotid artery ang iograms 3. Rotational left internal carotid kori ry angiogram Hemostasis: Mynx closure device Indications: The patient is a 77-year-ol d female with an aneurysm of the left pericallosal artery. Diagnostic angiogram is requested for treatment planning. Procedure in detail and findings: The ri sks and benefits of the procedure were explained to the patient and informed consent was obtained and signed. Prior to the proced ure, a timeout was completed verifying correct patient, date of , procedure, site, positioning and special equipment as li licable. The patient was brought to the neurointerventional suite and placed in the supine position upon the angiography table. Bot h groins were prepped and draped in sterile fashion. Lidocaine 1% was used for local anesthesia. A 19-gauge singlewall punctu re needle was used to access the right common femoral artery. The nee dle was exchanged over an introducer wire for a 5 Malawian sheath. H eparinized saline infusion was administered through the sheath and the catheter used during this procedure. A 5 [place]ian Terumo angled glide catheter was advanced over a Glidewire into the right common carotid artery. Right common carotid artery cervical angiogram was performed in frontal and lateral projections. The angiogram shows no sign ificant stenosis at the origin of the internal carotid artery. T he external carotid branches are normal in their cervical course. The catheter was advanced under fluorosc opic guidance into the right internal carotid artery and an angiogram was performed in frontal and lateral projections. Right internal carotid artery cerebral angiogram shows satisfactory opacificati on of the internal carotid artery as well as the anterior and middl e cerebral arteries. The catheter was advanced into the left common carotid artery using fluoroscopic guidance and a cervical ang iogram was performed in frontal and lateral projections. Left ce rvical carotid artery angiogram shows a normal origin of the i nternal carotid artery. The external carotid artery branches are nor mal in their cervical course. The catheter was advanced under fluorosc opic guidance into the left internal carotid artery and a cerebral a ngiogram was performed in frontal and lateral projections. Left in ternal carotid artery cerebral angiogram shows satisfactory op acification of the internal carotid artery as well as the anterior a nd middle cerebral arteries. There is an irregular aneurysm projectin g from the pericallosal artery. The catheter was attached to automatic i njector and rotational angiogram was performed. Data from this angiogram were sent to the workstation for analysis. The aneurysm h as multiple lobes and measures 7.5 x 3.3 x 3.5 mm. This aneury sm has a wide neck and incorporates a frontal branch origin. Th e A1 and A2 segments measure 2.3 mm in greatest diameter. The catheter was removed. After thorough review of the images, the sheath was removed and a Mynx closure de vice was used to achieve hemostasis. Dr. Don Vela was present during the entire procedure and the interpretation of images. Impression: There is a wide necked, mult ilobed left pericallosal aneurysm measuring 7.5 mm in greatest di mension. PLAN: Follow-up with Dr. Mckeon for jeffrey gical planning. Performing Organization Address City/State/ZIP Code Phon e Number [facility] documented in this encounter Visit Diagnoses Diagnosis Cerebral aneurysm, nonruptured - Primary documented in this encounter Care Teams Retail Wireless Sales Representative Relationship Specialty Start Date End Date Raquel Martin PA-C PCP - General 08/28/17 [address] [place] [phone] documented as of this encounter
--- OUTSIDE RECORDS SUMMARY | 2021-11-18 18:25 | XMS_ITS | Encounter Summary ---
:1940 Author Organization [facility] Address [address] [place] [address] Care Team Providers Name Role Phone Raquel Martin PA-C Primary Care Provider [phone] Encounter Details Date Type Department Care Team Description 10/10/2017 Hospital Encounter [facility] Don Vela Cardiovascular Unit MD Pedro 111 [facility] [address] [place] [address] [address] [phone] [facility] [address] [place] [address] (Wo rk) Social History Tobacco Use Types Packs/Day Years Used Date Former Smoker Quit: 08/29/19 07 Smokeless Tobacco: Never Used Alcohol Use Standard Drinks/Week Comments No 0 (1 standard drink = 0.6 oz pure alcoho l) Sex Assigned at Date Recorded Not on file documented as of this encounter Last Filed Vital Signs Vital Sign Reading Time Taken Comments Blood Pressure 122/55 10/10/2017 1230 EDT Pulse - - Temperature 36.1 ??C (97 ??F) 10/10/2017 0956 EDT Respiratory Rate 18 10/10/2017 1200 EDT Oxygen Saturation 97% 10/10/2017 1230 EDT Inhaled Oxygen Concentration - - Weight 81.6 kg (180 lb) 10/10/2017 0707 EDT Height 165.1 cm (5' 5) 10/10/2017 0707 EDT Body Mass Index 29.95 10/10/2017 0707 EDT documented in this encounter Functional Status [...] nonruptured-I67 .1[ICD-10-CM] documented in this encounter Discharge Instructions Instructionsvan Linette Ferrari PA-C - 10/10/2017 RADIOLOGY PATIENT EDUCATION INSTRUCTIONS FOLLOWING AN ANGIOGRAM OF THE HEAD October 10, 2017 with conscious sedation (versed and fentanyl ) Procedure Wound Site - right Femoral artery Dr. Don Vela MD has completed an angiogram of your Head. reviewed your studies with in our suite following the procedure. 's office will contact you to arrange a follow up appointment in his office next week to discuss the findings in more detail and to discuss a treatment plan moving forward. 1. Please drink extra fluids today (6-8 glasses). This will encourage the excretion of the contrast dye material. 2. Do not drive or make any legal decisions today as you have received medications. 3. If you feel a tingling sensation or lack of feeling in the affected extremity, call your local doctor. 4. If you note any signs of bleeding, such as bulging under the skin the size of a golf ball, put direct pressure to the area, call your doctor, and go to the nearest emergency room or call 911 for assistance. 5. You may resume all of your normal dietary and medication requirements. 6. Leave the sterile dressing on for 24 hours, then shower and clean the area daily. Place a clean Band-Aid over the site each day for 5 days. 7. Do not take a tub bath, go in a hot tub or submerge in water for 5 days. 8. Do not put lotions or powder on the area for 5 days. 9. Report any signs of infection (redness, swelling, discharge and fever) to your doctor. 10. No lifting > 20 lbs. or heavy exertion for 5 days after procedure. CLOSURE DEVICE Mynx Vascular closure devise. It is uses a soft sponge-like material to close the small hole in yourartery after your procedure. It works by rapidly absorbing the blood around the puncture site, whichstops the bleeding and immediately seals the hole. Mynx will completely absorbed by your body cuadpq00 days, leaving nothing behind but a healed arter IF YOU HAVE ANY QUESTIONS OR CONCERNS REGARDING THE PROCEDURE, PLEASE CALL THE INTERVENTIONAL RADIOLOGY CLINIC AT . SOMEONE IS AVAILABLE TO TAKE YOUR CALL 24 HOURS A DAY. documented in this encounter Medications at Time of Discharge Medication Sig Dispensed Refills Start Date End Date ALBUTEROL INHL Inhale as directed 0 as needed. lisinopril (PRINIVIL, Take 2.5 mg by mouth 0 ZESTRIL) 2.5 mg tablet daily. Multivitamins with Take 1 Tab by mouth 0 Minerals tablet tablet daily. NIFEdipine XL Take 30 mg by mouth 0 (PROCARDIA-XL) 30 mg daily. tablet tiotropium (SPIRIVA WITH Inhale 18 mcg as 0 HANDIHALER) 18 mcg directed daily. inhalation capsule aspirin 81 mg EC tablet Take 81 mg by mouth 0 11/16/2017 daily. ibuprofen (MOTRIN) 200 mg Take 200 mg by mouth 0 10/31/2017 tablet every 6 hours as needed for Pain. documented as of this encounter Discharge Disposition Disposition Code Departure Means Destination Home or Self Care documented in this encounter Progress Notes Rosalba Alvarado RN - 10/10/2017 1004 EDT At 0955 patient arrived to cvu from IR s/p cerebral angiogram. Patient is alert and oriented x3, denies pain. IV infusing with no sign of infiltration. Right groin site clean dry and intact with no sign of bleeding or hematoma. Pt educated on the importance of keeping right leg straight and head down.Patient tolerating PO fluids, declines food. Bed in low position, side rails up and call pickard withinreach. Family at bedside. 1035 Patient tolerating crackers. 1125 Noni Ang at bedside to see patient. Will return prior to dc. 1225 Discharge instructions reviewed with patient. Patient verbalizes understanding. 1245 Report to Haresh Sanford RN 1330 Report from Haresh Sanford. Awaitng dc visit from Noni Martinez - paged. 1340 DVG does not need to see patient again prior to dc. 1343 Patient discharged from CVU. Patient left via wheelchair, accompanied by friend. Trena Romero RN - 10/10/2017 0857 EDT I have reviewed Labs, MAR, Pt history. I have noted the sedation orders by dvg. For sedated IP procedure perform education assessment. I have reviewed all over pertinent orders for this procedure. The H + P has been completed dvg. ASA 2 Pt and family member granddaughter greeted in cvu ID'd by name, and viewed name bracelet. Assessed IV. As the nurse in the room I explained goals of procedure and sedation relating to nursing goals. Pt verbalizes all questions have been answered regarding procedure Pt meets criteria to receive IV sedation. Pt neurologically intact. Does disclose hip pain on left 2-3/10 Voided prior to procedure. Pt in room time is 840 I have reviewed the consent for the procedure. Pt positioned Supine on the angio 23 table. Elbows with padding, Safety straps in place. VS assessed. Administration of conscious sedation began at 850 . Sterile prep of bilateral groin region with chloraprep by jrjose manuel in the usual sterile fashion in accordance with manufactures recommendation. Lorenzo moment for cerebral angiogram procedure verbalized with all team members listening At 910 between dmj and vlp/twp with jrm assisting with the procedure as well. At start of the procedure the patient is awake, slightly sleepy. Thus far pt has received versed 5mg, fentanyl 175mcg, zofran 4mg (to complement sedation not for nausea Contrast imaging began once sheath is in place. Pt cooperative with breath holding sergio request from dr vela. 3 d imaging done. Procedure completed 945 closed right femoral arteriotomy with mynx. dsd applied. family notified end of procedure discharge instructions have our clinic number for patient to call for any concerns or questions. follow up plan discussed with In suite provider. Defer to Physicians note for procedure outcomes Medications administered during the procedure, over 55minutes of time in titrated, divided doses, Versed 6 Mg Fentanyl 250 Mcg IV. Pt responded to sedation well. Other Meds given during procedure zofran 4mg IVF during procedure 500mLs. Pt tolerated procedure well . Discharge instructions placed in prism. Deb Aguillon RN - 10/10/2017 0742 EDT Rehan Gann arrived to CVU via wheelchair. Patient alert and oriented x3. Bed in lowest position with side rails up & call pickard within reach. Unit orientation and explanation of IV and procedure completed with patient. Patient demonstrates willingness and understanding of pre-procedure education. Andrea Gagnon RN - 10/08/2017 0824 EDT Patient called IR nursing office and the information in Shante's note was relayed. Patient reports this is her first cerebral she is very nervous. Shante Keys RN - 10/07/2017 1444 EDT Pre procedure phone call was made to patient regarding their upcoming appointment on Sunday, . Patient unable to be reached. This RN has left a message for them to call IR nuclear medicine officer [phone]) for pre-procedure instructions [phone]. If patient should call back, the following information should be given and charted: Plan: -Go to registration on 3rd floor at 0645 (still need to go here even if pre- registered on phone) -Do not eat any food after 0100 DOP -Patient may have clears from 0100 until 0500 (water, clear juices like apple or cranberry, black coffee or black tea, jello, carbonated beverages) -After 0500, nothing by mouth (meds ok w/ sip h20) -Medications - Pt should take prescribed medications. Meds to hold: none per mar Pt should not take ibuprofen (Motrin, Advil) for 24 hours prior to the procedure or naproxen (Aleve)for 2 days before. Tylenol (acetaminophen) may be taken for pain. -Due to sedation patient must have a taxi driver supervisor (bus or taxi is not allowed) - Bring a list of current medications/allergy list -Bring CPAP if applicable -Shower night before or morning of procedure -Leave all valuables/medications at home (pt's with hearing aids should bring them) documented in this encounter H&P Notes Linette Martinez PA-C - 10/10/2017 0837 EDT The preoperative history and physical which was performed within 30 days of this procedure has been reviewed and the clinically appropriate elements of the physical examination havebeen repeated. There are no changes to the documented history and physical or if so such changes aredocumented below Patient reports feeling well with no medical complaints. Linette Martinez PA-C 10/10/2017 8:37 Jenniffer Park MD - 09/27/2017 1300 EDT Outpatient Neurosurgery Clinic CHIEF COMPLAINT: HISTORY OF PRESENT ILLNESS: Ms Gann is a 77-year-old generally healthy female presenting today bulmaro incidental finding of an aneurysm on CT head. CT head was performed initially because of changes in vision the past couple of months. She saw her obiee report developer who referred her to our healthcare network consultant,Dr Sohail Chaudhry, who saw macular degeneration due [...] today by he r neighbor and her [id number] who have several questions regarding her aneurysm and its treatment. She denies any headaches, any dizziness, any family history of aneurysms or sudden . She is currently a nonsmoker. She quit smoking 10 years ago with a 60-gvit-inku smoking history. Her only medical history is hypertension, well controlled on oral medication. SOCIAL HISTORY: She lives in the [facility] with her dog independently. She lives [...] her soon in followup. JENNIFFER SERRANO MD documented in this encounter Procedure Notes Don Vela MD - 10/10/2017 1003 EDTPre-Procedure Diagnose(s): Cerebral aneurysm without rupturePost-Procedure Diagnose(s): Cerebral aneurysm without rupture NEUROINTERVENTIONAL RADIOLOGY Rehan Gann 77 y.o. female LOS: 0 days Code Status: No Order PREPROCEDURE CLINICAL PROBLEMS Active Problems: * No active hospital problems. * LABORATORY RESULTS BMP: Lab Results Component Value Date BUN 17 08/28/2017 CREATININE 0.80 08/28/2017 PROCEDURE 1. Bilateral Common Carotid Artery Angiogram 2. Bilateral Internal Carotid Artery Angiogram Access Site: rc Total fluoroscopy time: 5.8 minutes Total contrast volume load: 45 cc SURGEONS: Don Vela MD Eligibility Manager: Arron Mera, RT ANESTHESIA: IV sedation with versed and fentanyl PRELIMINARY FINDINGS: A time-out was completed prior to procedure verifying correct patient, procedure, site, positioning,and special equipment if applicable. 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 No other aneurysm seen. COMPLICATIONS: None PLAN: Bedrest for 3 hours[address] Follow up with Dr. Henao for surgery as directed. Dr. Don Vela Neurointerventional Radiology [facility] documented in this encounter Plan of Treatment Not on filedocumented as of this encounter Visit Diagnoses Not on filedocumented in this encounter Administered Medications Inactive Administered Medications - up to 3 most recent administrations Medication Order MAR Action Action Date Dose Rate Site acetaminophen (TYLENOL) suppository 650 mg 650 mg, rectal, EVERY 4 HOURS PRN, Starting on 09/23 at 0957, Until Sun10/10/17 at 1551, Pain, Routine, Postprocedure acetaminophen (TYLENOL) tablet 650 mg 650 mg, oral, EVERY 4 HOURS PRN, Startin g on Sun10/10/17 at 0957, Until Sun10/10/17 at 1551, Pain, Routine, Postprocedure fentaNYL citrate (PF) 50 mcg/mL injection Given 10/10/2017 9:45 EDT 250 mcg 25-250 mcg 25-250 mcg, intravenous, ONCE PRN, 1 dose, Starting on Sun10/10/17 at 0745, Until Sun10/10/17 at 0945, Pain, radiology, Routine, Intraprocedure midazolam (PF) (VERSED) 1 mg/mL injection 0.5-10 Given 10/10 9:45 EDT 6 mg mg 0.5-10 mg, intravenous, ONCE PRN, 1 dose, Starting on Sun10/10/17 at 0745, Until Sun10/10/17 at 0945, Sedation, Routine, Intraprocedure ondansetron (PF) (ZOFRAN) injection 2-4 mg Given 10/10/2017 9:15 EDT 4 mg 2-4 mg, intravenous, ONCE PRN, 1 dose, Starting on Sun10/10/17 at 0653, Until Sun10/10/17 at 0915, Nausea, Routine, Preprocedure sodium chloride 0.9 % (NS) Rate Documented 10/10/2017 10:00 EDT 50 mL/hr 50 mL/hr infusion at 50 mL/hr, 50 mL/hr, intravenous, CONTINUOUS, Starting on Sun10/10/17 at 0715, Until Sun10/10/17 at 1551, Routine, Preprocedure New Bag 10/10/2017 7:16 EDT 50 mL/hr 50 mL/hr documented in this encounter Historical Medications This list may reflect changes made after this encounter. Medication Sig Dispensed Refills Start Date End Date ibuprofen (MOTRIN) 200 mg Take 200 mg by mouth 0 10/31/2017 tablet every 6 hours as needed for Pain. added in this encounter Active and Recently Administered Medications Times are shown in EDT. Continuous Medication Order 10/08/2017 10/09/2017 10/10/2017 sodium chloride 0.9 % (NS) infusion 0716 (New Bag - Provider: Deb Sanford RN)1000 (Rate Documented - Provider: Rosalba Alvarado RN) at 50 mL/hr, 50 mL/hr, intravenous, CONT INUOUS, Starting Sun10/10/17 at 0715, Until Sun10/10/17 at 1551, Routine PRN Medication Order 10/08/2017 10/09/2017 10/10/2017 acetaminophen (TYLENOL) suppository 650 mg(Linked Group 1) 650 mg, rectal, EVERY 4 HOURS PRN, Start ing Sun10/10/17 at 0957, Until Sun10/10/17 at 1551, Pain, Routine acetaminophen (TYLENOL) tablet 650 mg(Linked Group 1) 650 mg, oral, EVERY 4 HOURS PRN, Startin g Sun10/10/17 at 0957, Until Sun10/10/17 at 1551, Pain, Routine fentaNYL citrate (PF) 50 mcg/mL injection 25-250 mcg (COMPLETED) 0945 (Given - Provider: Trena Romero RN - Comment: over 55 min) 25-250 mcg, intravenous, ONCE PRN, 1 dos e, Starting Sun10/10/17 at 0745, Until Sun10/10/17 at 2359, Pain, radiology, Routine midazolam (PF) (VERSED) 1 mg/mL injection 0.5-10 mg (COMPLETED) 09 (Given - Provider: Trena Romero RN - Comment: over 55 min) 0.5-10 mg, intravenous, ONCE PRN, 1 dose , Starting Sun10/10/17 at 0745, Until Sun10/10/17 at 2359, Sedation, Routine ondansetron (PF) (ZOFRAN) injection 2-4 mg (COMPLETED) 0915 (Given - Provider: Trena Romero RN) 2-4 mg, intravenous, ONCE PRN, 1 dose, S tarting Sun10/10/17 at 0653, Until Sun10/10/17 at 0915, Nausea, Routine Linked Groups Order Group 1: acetaminophen (TYLENOL) tablet 650 mgJump to med 650 mg, oral, EVERY 4 HOURS PRN, Startin g Sun10/10/17 at 0957, Until Sun10/10/17 at 1551, Pain, Routine Or acetaminophen (TYLENOL) suppository 650 mgJump to med 650 mg, rectal, EVERY 4 HOURS PRN, Start ing Sun10/10/17 at 0957, Until Sun10/10/17 at 1551, Pain, Routine documented in this encounter Orders Medications Ordered That Might Not Have Count Last Ord ered Date First Ordered Date Been Administered acetaminophen (TYLENOL) suppository 650 mg 10/10 acetaminophen (TYLENOL) tablet 650 mg 1 10/10/2017 Nursing Count Last Ordered Date First Ordered Date BEDREST 1 10/10/2017 DISCHARGE INSTRUCTIONS 10/10/2017 INSERT PERIPHERAL IV 10/10/2017 MONITOR WOUND DRAINAGE 10/10/2017 NURSING COMMUNICATION 10/10/2017 Transfer Count Last Ordered Date First Ordered Date NOTIFY PPS OF DISCHARGE COMPLETE 10/10/2017 TEACHING SERVICE 1 10/10/2017 Discharge Count Last Ordered Date First Ordered Date DISCHARGE PATIENT 10/10/2017 documented in this encounter Care Teams Shop Foreman Relationship Specialty Start Date End Date Raquel Martin PA-C PCP - General 08/28/17 [address] [place] [address] documented as of this encounter
--- OUTSIDE RECORDS SUMMARY | 2021-11-18 18:25 | XMS_ITS | Encounter Summary ---
:1940 Author Organization [facility] Address [address] [place] [address] Care Team Providers Name Role Phone Raquel Martin PA-C Primary Care Provider [phone] Encounter Details Date Type Department Care Team Description 09/14/2017 Hospital Encounter [facility] MD Pedro 111 [facility] [address] [phone] [place], [address] [place] [address] (Wo rk) Social History Tobacco Use Types Packs/Day Years Used Date Former Smoker Quit: 08/29/19 07 Smokeless Tobacco: Never Used Alcohol Use Standard Drinks/Week Comments No 0 (1 standard drink = 0.6 oz pure alcoho l) Sex Assigned at Date Recorded Not on file documented as of this encounter Discharge Diagnoses Diagnosis H53.40 Unspecified visual field defects- H53.40[ICD-10-CM] documented in this encounter Medications at Time [...] 81 mg by mouth 0 11/16/2017 daily. documented as of this encounter Discharge Disposition Disposition Code Departure Means Destination Auto Discharge Home documented in this encounter Plan of Treatment Not on filedocumented as of this encounter Visit Diagnoses Not on filedocumented in this encounter Care Teams Medical Accountant Relationship Specialty Start Date End Date Raquel Martin PA-C PCP - General 08/28/17 [address] [place] [address] documented as of this encounter
--- OUTSIDE RECORDS SUMMARY | 2021-11-18 18:25 | XMS_ITS | Encounter Summary ---
:1940 Author Organization [facility] Address [address] [place] [address] Care Team Providers Name Role Phone Raquel Martin PA-C Primary Care Provider [phone] Reason for Visit Reason Onset Date Comments Other 12/07/2017 Encounter Details Date Type Department Care Team Description 12/07/2017 Telephone [facility] Sharri Henao MD Other Neurosurgery - [address] [address] [address], [place] [address] (Wo rk) Social History Tobacco Use Types [...] or older) documented as of this encounter Miscellaneous Notes Telephone Encounter - Debby Polo RN - 12/07/2017 1001 EDT Advised no chemical processing, coloring, perms for 90 days post procedure. The patient verbalized understanding. elephone Encounter - Sarah Yin - 12/07/2017 0849 EDT Patient remembers hearing that she isn't supposed to put any color in her hair until after her 1 month follow up. Patient has an appt on 12/18 for the follow up which is a little over a month after surgery. Patients hair appt is scheduled for 12/14 and she will cancel if she needs to. documented in this encounter Plan of Treatment Not on filedocumented as of this encounter Visit Diagnoses Not on filedocumented in this encounter Care Teams Occupational Health Physiotherapist Relationship Specialty Start Date End Date Raquel Martin PA-C PCP - General 08/28/17 [address] [place] [address] documented as of this encounter
--- OUTSIDE RECORDS SUMMARY | 2021-11-18 18:25 | XMS_ITS | Encounter Summary ---
:1940 Author Organization [facility] Address [address] [place] [address] Care Team Providers Name Role Phone Raquel Martin PA-C Primary Care Provider [phone] Reason for Visit Reason Onset Date Comments Advice Only 11/28/2017 Encounter Details Date Type Department Care Team Description 11/28/2017 Telephone [facility] Debby Polo RN Advice Only Neurosurgery - Main [place] [address] [place] [address] Social History Tobacco Use Types Packs/Day Years [...] encounter Miscellaneous Notes Telephone Encounter - Debby Polo, [place] - 11/28/2017 1028 EDT The patient questioned whether or not her sutures need removal. She also questioned the need to continue aspirin 325 mg daily. Instructed the patient to continue aspirin 325 mg daily. Follow up appointment and scan confirmed. documented in this encounter Plan of Treatment Not on filedocumented as of this encounter Visit Diagnoses Not on filedocumented in this encounter Care Teams Core Stripper Relationship Specialty Start Date End Date Raquel Martin PA-C PCP - General 08/28/17 [address] [place] [id number] documented as of this encounter
--- OUTSIDE RECORDS SUMMARY | 2021-11-18 18:25 | XMS_ITS | Encounter Summary ---
:1940 Author Organization [facility] Address [address] [place] [address] Care Team Providers Name Role Phone Unavailable Primary Care Provider Unavailable Encounter Details Date Type Department Care Team Description 05/12/2011 Results Only [facility] Samara Rubin MD Laboratory Services - [address] [place] [address] [place] [address] Social History Tobacco Use Types Packs/Day Years Used Date Never Assessed Sex Assigned at Date Recorded Not on file documented as of this encounter Plan of Treatment Not on filedocumented as of this encounter Procedures Procedure Name Priority Date/Time Associated Diagnosis Comme nts PAP TEST- RESULT Routine 05/12/2011 0:00 EST Resu lts for this ONLY procedure are i n the results section. documented in this encounter Results PAP TEST- RESULT ONLY (05/12/2011 0:00 EST) Pathology Report: CYTOPATHOLOGY REPORT [facility] Reports generated via electronic interface contain audelia ginal data; however they are lacking the format of the original re port. Caution should be taken when reading/interpreting unfo rmatted reports. Name: ? REHAN FRITZ ? Accession #: ? [id number] ? : ? 1940 (Age: 71) ??F ?Collect Da te: ? 05/12/2011 ? Location: ? [facility] ? Receive Date: ? 012 ? Provider: SAMARA RUBIN MD Copy to: KEYA MADDOX MD ? Final Report SPECIMEN ADEQUACY ? Satisfactory for Evaluation - assessment of transformation zone component not appl icable ( e.g. atrophy, vaginal sample, hysterectomy) - scant squamous epithelial component - obscuring contamination, possibly lubricant GENERAL CATEGORIZATION ? Negative for Intraepithelial Lesion or Malignan cy ?? Last Menstural Period: 1994 Previous Gynecologic Pathology: SKYE III: JESUS: 08/26, 08/27, 02/26, 08/30 HPV: + 08/27, 02/26, 03/30, 08/30, 05/05, 05/06 Treatment History: Colposcopy: LEEP: Specimen/Source: ??Pap Test, Cervix/Endocervix, ThinPr ep Imaging System with manual evaluation Document reviewed and electronically signed by: ? HERNANDEZ Mansfield(ASCP) ? Report ??Date: 05/17/2011 11:29 HPV with Pap Test ? Date Ordered: ? 05/16/2011 ? Status: ?? Signed Out ?Date Complete: ? 05/22/2011 ? By: ??S ystem Interface ? Date Reported: ? 05/22/2011 ? Interpretation RESULT: Positive for one or more of HPV types 16,18,31 ,33,35,39,45, 51,52,56,58,59, or 68. These high/intermediate risk HP V types are associated with some squamous intraepithelia l lesions and cervical cancers. Comments Document reviewed and electronically signed by: ? System Interface ? Report date: 05/22/2011 By the signature above, the attending physician certif ies that he/she has personally conducted a gross and/or microscopic examin ation of the described specimens and rendered or confirmed the above diagnosi s. End of Report Specimen Performing Organization Address City/State/ZIP Code Phon e Number [facility] [address] [place] [address] [facility] [address] [place] [address] documented in this encounter Visit Diagnoses Not on filedocumented in this encounter
--- OUTSIDE RECORDS SUMMARY | 2021-11-18 18:25 | XMS_ITS | Encounter Summary ---
:1940 Author Organization [facility] Address [address] [place] [address] Care Team Providers Name Role Phone Raquel Martin PA-C Primary Care Provider [phone] Reason for Visit Reason Onset Date Comments Appointment Related 10/03/2017 Encounter Details Date Type Department Care Team Description 10/03/2017 Telephone [facility] Dennis Henao Ap pointment Related Neurosurgery - [address] [address] [address], [place] [phone] (Wo rk) Social History Tobacco Use Types [...] this encounter Miscellaneous Notes Telephone Encounter - Iza Haynes - 10/03/2017 7333 EDT LM for Rehan stating that Dr. Henao will see her on 10/10/17, following her angio with IR. The appointment is scheduled at 1pm but advised Rehan to come to our office as soon as she is able to and Dr. Henao will be paged to see her. Advised Rehan to contact our office if she has any questions. documented in this encounter Plan of Treatment Not on filedocumented as of this encounter Visit Diagnoses Not on filedocumented in this encounter Care Teams Boat [employer] Relationship Specialty Start Date End Date Raquel Martin PA-C PCP - General 08/28/17 [address] [place] [id number] documented as of this encounter
--- OUTSIDE RECORDS SUMMARY | 2021-11-18 18:25 | XMS_ITS | Encounter Summary ---
:1940 Author Organization [facility] Address [address] [place] [address] Care Team Providers Name Role Phone Raquel Martin PA-C Primary Care Provider [phone] Reason for Referral Radiology Services (3 - 10 Business Days) - Specialty Report Received Specialty Diagnoses / Procedures Referred By Contact Refer red To Contact Diagnoses Visual field defect Sohail Chaudhry MD Procedures CT ORBITS W/WO CONTRAST [address] [phone] Referral ID Status Reason Start Date Expiration Date Visits V isits Requested Authorized [id number] Specialty 08/28/2017 1 1 Report Received adiology Services (3 - 10 Business Days) - Specialty Report Received Specialty Diagnoses / Procedures Referred By Contact Refer red To Contact Diagnoses Visual field defect Sohail Chaudhry MD Procedures CT HEAD W/WO CONTRAST [address] [phone] Referral ID Status Reason Start Date Expiration Date Visits V isits Requested Authorized [id number] Specialty 08/28/2017 1 1 Report Received (Routine) - New Request Specialty Diagnoses / Procedures Referred By Contact Refer red To Contact Diagnoses Visual field defect oShail Chaudhry MD Procedures VISUAL FIELD EXAM, INTERMEDIATE [address] [address] Referral ID Status Reason Start Date Expiration Date Visits V isits Requested Authorized [id number] New Request 08/28/2017 1 1 (Routine) - New Request Specialty Diagnoses / Procedures Referred By Contact Refer red To Contact Diagnoses Visual field defect Sohail Chaudhry MD Procedures OCT (OPHTHALMIC DIGITAL IMAGING, POSTERIOR SEGMENT) [address] [place], [place] [phone] Referral ID Status Reason Start Date Expiration Date Visits V isits Requested Authorized [id number] New Request 08/28/2017 1 1 Reason for Visit Reason Comments Blurred Vision Patient refered by Alison delaney OD due to vision difficulty in the left eye. Patient notes Sandi ract surgery on the left eye by Dr. Marinelli on 06-11-2017 and on right e ye 2 years ago. The patient uses no eye meds currently, and denies f lashes, floaters, itch, burn, or tearing. Patient denies CVA/TIA or hi strory of Cardiac surgery. No Headache, but hit by horses knee 30 ye ars ago. Consult (Urgent) - Authorization Not Required Specialty Diagnoses / Procedures Referred By Contact Refer red To Contact Ophthalmology Alison Barreto, [facility] [address] [place] [address] ,[place] [address] Fax: Referral ID Status Reason Start Expiration Visits Visits Date Date Requested Authorized [id number] Authorization Not 1 1 Required Encounter Details Date Type Department Care Team Description 08/28/2017 Office Visit [facility] Sohail Chaudhry, Ophthalmology - Paddy BARRAZA [place] [phone] [place] [address] (Wo rk) Social History Tobacco Use Types Packs/Day Years Used Date Former Smoker Quit: 08/29/19 07 Smokeless Tobacco: Never Used Alcohol Use Standard Drinks/Week Comments No 0 (1 standard drink = 0.6 oz pure alcoho l) Sex Assigned at Date Recorded Not on file documented as of this encounter Last Filed Vital Signs Vital Sign Reading Time Taken Comments Blood Pressure - - Pulse - - Temperature - - Respiratory Rate - - Oxygen Saturation - - Inhaled Oxygen Concentration - - Weight 81.6 kg (180 lb) 08/28/2017816 EDT Height 165.1 cm (5' 5) 08/28/2017816 EDT Body Mass Index 29.95 08/28/2017816 EDT documented in this encounter Discharge Diagnoses Diagnosis H53.40 Unspecified visual field defects- H53.40[ICD-10-CM] H35.30 Unspecified macular degeneration (age-related)-H35.30[ICD-10-CM] H53.452 Other localized visual field def ect, left eye-H53.452[ICD-10-CM] 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 I spent a total of 65 minutes in face to face time with this patient today and 40 minutes of that time was spent in counseling and coordination of care as described in the progress note. 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 Dear Dr Barreto: Thank you for requesting neuro-ophthalmic evaluation on Ms Gann because of a history and concern for a new or worsening scotoma in the left eye. I appreciate the notes you sent in advance that provided an introduction to her medical problems. 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 She underwent a cataract extraction in her right eye about two years ago without complication. She has known macular degeneration; this has been followed all along and to her knowledge has been stable. The patient has intermittently had glasses including correction with progressive lenses, which she has tolerated fairly well. Several months back, she underwent cataract surgery in the left eye and soon thereafter noted difficulties with adjusting to her new glasses. Further evaluation to include visual flower that discovered a new paracentral defect or newly appreciated paracentral defect in that eye. The patient denies any eye pain. She has not had any headaches. There is some history of head traumawhere she was hit in the head by a horse's knee about 30 years ago, but suffered no ill effects related to the same. She does also carry a history and diagnosis of polymyalgia rheumatica. This was madeover a year ago and she finally weaned off steroids at the end of July. She has some ongoing arthralgias and myalgias related to the same or simply non-inflammatory arthritis. She specifically denies any scalp tenderness, jaw pain, unexplained weight loss or weight gain, night sweats or other difficulties and reports that other than anxiety and systemic hypertension which she relates to her anxiety, she has been well. As a consequence of this new visual field defect, the patient is referred for neuro-ophthalmic evaluation for the same. Of note, the patient reports that she would rather have her head cut off then undergo an MRI due to severe claustrophobia, including being intolerant of riding in elevators despite bursitis and arthritis that limits her ability to go up stairs. A comprehensive review of systems is otherwise negative except as noted above. The ocular history is significant as noted above; the patient is bilaterally surgically pseudophakic, she has background dry macular degeneration, presbyopic. The medical history is significant for systemic hypertension, polymyalgia rheumatica with details noted above, bursitis, arthritis, chronic back pain, having been seen by orthopedic surgery and polymyalgia rheumatica is managed by rheumatology, [facility] in [place]. Her surgical historyincludes a tubal ligation and bilateral cataract extraction as noted above. The social history reveals that the patient has greater than 13-kqeb-emkv history of smoking and quit approximately 10 years ago. She denies alcohol or recreational drug use. Medications were reviewed as documented in electronic health record and include albuterol, aspirin, lisinopril, multivitamin and mineral, and nifedipine. The patient is allergic to CODEINE and ERYTHROMYCIN. The family history includes a retinal detachment in her mother, her father had macular degeneration and cataracts. Her mother also suffered stroke. There is no other known neurologic or ophthalmologic disease in the family. The neuro-ophthalmic examination revealed the patient to be communicative and cooperative for testing. Visual acuities with correction were 20/25+2 in the right eye, 20/40 in the left eye with further refractive refinement to 20/30, Symone 1+ in the right eye and Symone 2 in the left eye on near card.Color vision (AOPIP) showed 8.5/14 correct pseudoisochromatic plates in the right eye, 4/14 correct pseudoisochromatic plates in the left eye. The pupils were equal in size. I did not appreciate a relative afferent pupillary defect. The external examination of the eyes and orbits revealed rosacea withmild blepharitis. Lids were in normal position and showed no lid lag or twitch. Examination of extrao cular motility showed no strabismus. Versions and ductions were full. There is choppy pursuit, motorimpersistence with normal saccades and no nystagmus. Applanation tonometry at 0950 hours was 15 mmHgin the right eye, 14 mmHg in the left eye. Slit lamp examination revealed rosacea injection, arcus, clear corneal incisions, well-placed posterior chamber and intraocular lenses in each eye. Automated Contreras visual flower were performed with a moderate degree of technical error. The right eye shows a temporal/cecocentral defect with a mean deviation score -3.06 dB and a foveal threshold of 29 dB. The left eye showed a temporal/cecocentral defect with a mean deviation score of -3.10 dB and a foveal threshold of 21 dB. Dilated stereoscopic (indirect) funduscopy revealed trace temporal pallor of theright optic nerve, cup-to-disc ratio 0.3. There is mottling and hard drusen in the temporal portion of the macula with some pigmentary changes. The vessels are mildly attenuated and mid peripheral retina was unremarkable. On the left, the nerve was full and showed diffuse subtle pallor, cup-to-disc ratio estimated 0.2; no hemorrhage, exudates, or other abnormalities. There is mottling, hard drusen again in the temporal more than nasal portion of the macula with normal mid peripheral retina. Spectral domain OCT nerve fiber layer analysis showed no clear thinning or edema at the disks with average nerve fiber layer thickness of 100 microns on the right and 105 microns on the left. There wassignificant macular thinning temporally in both eyes and more superior on the left when compared to the right. FORMULATION: This is a 77-year-old woman with a history of recent prolonged steroid exposure, longstanding history of macular degeneration who was incidentally found to have new field defects after cataract surgery in the left eye. 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 With regard to her nerves, it is possible that what we are looking at is simply related to either buried drusen or an old process, particularly given the distribution of the macular changes; this should not explain the color deficiency. As such, I think it prudent to look for reversible causes and have ordered serologic studies to investigate for the same today. Further, I have recommended and will obtain a CT of the brain and orbits. While less than ideal, the patient is adamant that she would not be able to tolerate an MRI, particularly closed MRI, which would be needed to provide the resolution thatone would expect to provide a benefit over that which can be obtained with CT. I will plan on seeingthe patient back the same time that her CT is done. She knows to call in the interval if there are an y changes or new symptoms in the interval. Sincerely, Sohail Chaudhry MD Diplomate, the [place] [employer] homicide squad sergeant Department of Ophthalmology NEURO-OPHTHALMOLOGY cc: Zabrina Ambriz MD, [facility] [address] [facility] [facility], [place] [address] Alison Barreto OD, [address] [facility], [address], [place] [address] Veronica Caban PA, [address] [facility], [place] [address] ( ) ADDENDUM: The patient's B12 level returned at 215 pg/ml with the low-end cut off for abnormal of 200pg/ml. However, her methylmalonic Acid was abnormal at 0.84 nmol/ml with a cutoff <0.40 nmol/ml supporting a functional B12 deficiency. The pateint's PCP's office was contacted with this result and a copy of this note will be forwarded. documented in this encounter Plan of Treatment Scheduled Orders Name Type Priority Associated Diagnoses Order S chedule OCT (OPHTHALMIC DIGITAL Ophthalmology Routine Visual field def ect Ordered: IMAGING, POSTERIOR 8 SEGMENT) VISUAL FIELD EXAM, Ophthalmology Routine Visual field defect O rdered: INTERMEDIATE 08/28/2017 documented as of this encounter Procedures Procedure Name Priority Date/Time Associated Diagnosis Comme nts CT ORBITS W/WO Routine 09/14/2017 9:33 EDT Visual field defect Results for this CONTRAST procedure are i n the results section. CT HEAD W/WO Routine 09/14/2017 9:33 EDT Visual field defect R esults for this CONTRAST procedure are i n the results section. documented in this encounter Results CT ORBITS W/WO CONTRAST (09/14/2017 9:33 EDT) Anatomical Region Laterality Modality Other Specimen Narrative [facility] - 09/14/2017 12:[address] HEAD W/WO CONTRAST, CT ORBITS W/WO CONTRAST ??09/14/2017 9:33 AM CLINICAL HISTORY: H53.40-Unspecified vis ual field [id number]; bi-temporal visual field defects COMPARISON: No relevant prior TECHNIQUE: Axial CT images of the head and orbits w ere acquired without and with. Coronal and sagittal reformations were created. FINDINGS: The ventricles and extra-axial spaces ar e normal. There is no midline shift or other evidence of mass effect. ?? No mass or hemorrhage is seen. No infarc tion is identified. There is patchy periventricular white matter hypo attenuation presumably reflecting chronic microangiopathic freire ge. No abnormal parenchymal enhancement is identified. No suspicious lesions are seen in the ca lvarium. The major intracranial vessels show no significant stenosis. There is diffuse calcification through the carotid siphon s. There is a multilobulated aneurysm which measures about 6 mm trans verse by 3 mm craniocaudal by 5 mm AP which appears to arise from t he left anterior cerebral artery A2 segment (series 507 image #79) . This is not near the optic chiasm. The intracranial venous structur es opacify normally. The pituitary gland appears within abbey l limits. The optic chiasm has a normal CT appearance. The cavernou s sinuses opacify symmetrically. There is no evidence of a mass impinging upon the optic canals. Bilaterally, the optic ner ve sheath complex appears at the upper limit of normal, measuring abo ut 5.5 mm. The globes, orbital fat, lacrimal glands, and extrao cular muscles have a normal appearance allowing for prior lens extra ction bilaterally. The paranasal sinuses and mastoid air ce lls are well aerated. No fractures or suspicious osseous lesions are seen in the skull base. The facial soft tissues show no concerni ng findings. IMPRESSION: 1. 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 Thi s is likely an incidental finding and is not felt to be related to the patient's visual defects. Neurosurgical consultation is r ecommended. 2. The pituitary gland, optic chiasm, an d optic nerves within the optic canals appear normal. The cavernou s sinuses show no asymmetry. 3. The optic nerve sheath complex measur es about 5.5 mm bilaterally, upper limit of normal. 4. No significant radiographic abnormali ty of the globes or other orbital contents is identified. I have personally reviewed the images an d the above interpretation and agree with the findings. Procedure Note Pedro Lebron P - 09/14/2017 CT HEAD W/WO CONTRAST, CT ORBITS W/WO CO NTRAST 09/14/2017 9:33 AM CLINICAL HISTORY: H53.40-Unspecified vis ual field [id number]; bi-temporal visual field defects COMPARISON: No relevant prior TECHNIQUE: Axial CT images of the head and orbits w ere acquired without and with. Coronal and sagittal reformations were created. FINDINGS: The ventricles and extra-axial spaces ar e normal. There is no midline shift or other evidence of mass effect. No mass or hemorrhage is seen. No infarc tion is identified. There is patchy periventricular white matter hypo attenuation presumably reflecting chronic microangiopathic freire ge. No abnormal parenchymal enhancement is identified. No suspicious lesions are seen in the ca lvarium. The major intracranial vessels show no significant stenosis. There is diffuse calcification through the carotid siphon s. There is a multilobulated aneurysm which measures about 6 mm trans verse by 3 mm craniocaudal by 5 mm AP which appears to arise from t he left anterior cerebral artery A2 segment (series 507 image #79) . This is not near the optic chiasm. The intracranial venous structur es opacify normally. The pituitary gland appears within abbey l limits. The optic chiasm has a normal CT appearance. The cavernou s sinuses opacify symmetrically. There is no evidence of a mass impinging upon the optic canals. Bilaterally, the optic ner ve sheath complex appears at the upper limit of normal, measuring abo ut 5.5 mm. The globes, orbital fat, lacrimal glands, and extrao cular muscles have a normal appearance allowing for prior lens extra ction bilaterally. The paranasal sinuses and mastoid air ce lls are well aerated. No fractures or suspicious osseous lesions are seen in the skull base. The facial soft tissues show no concerni ng findings. IMPRESSION: 1. 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 Thi s is likely an incidental finding and is not felt to be related to the patient's visual defects. Neurosurgical consultation is r ecommended. 2. The pituitary gland, optic chiasm, an d optic nerves within the optic canals appear normal. The cavernou s sinuses show no asymmetry. 3. The optic nerve sheath complex measur es about 5.5 mm bilaterally, upper limit of normal. 4. No significant radiographic abnormali ty of the globes or other orbital contents is identified. I have personally reviewed the images an d the above interpretation and agree with the findings. Performing Organization Address City/State/ZIP Code Phon e Number [facility] CT HEAD W/WO CONTRAST (09/14/2017 9:33 EDT) Anatomical Region Laterality Modality Other Specimen Narrative [facility] - 09/14/2017 12:[address] HEAD W/WO CONTRAST, CT ORBITS W/WO CONTRAST ??09/14/2017 9:33 AM CLINICAL HISTORY: H53.40-Unspecified vis ual field [id number]; bi-temporal visual field defects COMPARISON: No relevant prior TECHNIQUE: Axial CT images of the head and orbits w ere acquired without and with. Coronal and sagittal reformations were created. FINDINGS: The ventricles and extra-axial spaces ar e normal. There is no midline shift or other evidence of mass effect. ?? No mass or hemorrhage is seen. No infarc tion is identified. There is patchy periventricular white matter hypo attenuation presumably reflecting chronic microangiopathic freire ge. No abnormal parenchymal enhancement is identified. No suspicious lesions are seen in the ca lvarium. The major intracranial vessels show no significant stenosis. There is diffuse calcification through the carotid siphon s. There is a multilobulated aneurysm which measures about 6 mm trans verse by 3 mm craniocaudal by 5 mm AP which appears to arise from t he left anterior cerebral artery A2 segment (series 507 image #79) . This is not near the optic chiasm. The intracranial venous structur es opacify normally. The pituitary gland appears within abbey l limits. The optic chiasm has a normal CT appearance. The cavernou s sinuses opacify symmetrically. There is no evidence of a mass impinging upon the optic canals. Bilaterally, the optic ner ve sheath complex appears at the upper limit of normal, measuring abo ut 5.5 mm. The globes, orbital fat, lacrimal glands, and extrao cular muscles have a normal appearance allowing for prior lens extra ction bilaterally. The paranasal sinuses and mastoid air ce lls are well aerated. No fractures or suspicious osseous lesions are seen in the skull base. The facial soft tissues show no concerni ng findings. IMPRESSION: 1. 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 Thi s is likely an incidental finding and is not felt to be related to the patient's visual defects. Neurosurgical consultation is r ecommended. 2. The pituitary gland, optic chiasm, an d optic nerves within the optic canals appear normal. The cavernou s sinuses show no asymmetry. 3. The optic nerve sheath complex measur es about 5.5 mm bilaterally, upper limit of normal. 4. No significant radiographic abnormali ty of the globes or other orbital contents is identified. I have personally reviewed the images an d the above interpretation and agree with the findings. Procedure Note Pedro Lebron P - 09/14/2017 CT HEAD W/WO CONTRAST, CT ORBITS W/WO CO NTRAST 09/14/2017 9:33 AM CLINICAL HISTORY: H53.40-Unspecified vis ual field [id number]; bi-temporal visual field defects COMPARISON: No relevant prior TECHNIQUE: Axial CT images of the head and orbits w ere acquired without and with. Coronal and sagittal reformations were created. FINDINGS: The ventricles and extra-axial spaces ar e normal. There is no midline shift or other evidence of mass effect. No mass or hemorrhage is seen. No infarc tion is identified. There is patchy periventricular white matter hypo attenuation presumably reflecting chronic microangiopathic freire ge. No abnormal parenchymal enhancement is identified. No suspicious lesions are seen in the ca lvarium. The major intracranial vessels show no significant stenosis. There is diffuse calcification through the carotid siphon s. There is a multilobulated aneurysm which measures about 6 mm trans verse by 3 mm craniocaudal by 5 mm AP which appears to arise from t he left anterior cerebral artery A2 segment (series 507 image #79) . This is not near the optic chiasm. The intracranial venous structur es opacify normally. The pituitary gland appears within abbey l limits. The optic chiasm has a normal CT appearance. The cavernou s sinuses opacify symmetrically. There is no evidence of a mass impinging upon the optic canals. Bilaterally, the optic ner ve sheath complex appears at the upper limit of normal, measuring abo ut 5.5 mm. The globes, orbital fat, lacrimal glands, and extrao cular muscles have a normal appearance allowing for prior lens extra ction bilaterally. The paranasal sinuses and mastoid air ce lls are well aerated. No fractures or suspicious osseous lesions are seen in the skull base. The facial soft tissues show no concerni ng findings. IMPRESSION: 1. 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 Thi s is likely an incidental finding and is not felt to be related to the patient's visual defects. Neurosurgical consultation is r ecommended. 2. The pituitary gland, optic chiasm, an d optic nerves within the optic canals appear normal. The cavernou s sinuses show no asymmetry. 3. The optic nerve sheath complex measur es about 5.5 mm bilaterally, upper limit of normal. 4. No significant radiographic abnormali ty of the globes or other orbital contents is identified. I have personally reviewed the images an d the above interpretation and agree with the findings. Performing Organization Address City/State/ZIP Code Phon e Number [facility] (ABNORMAL) HOMOCYSTEINE (08/28/2017 11:09 EDT) Homocysteine 25.0 (H) 4.5 - 12.4 [facility] Comment: umol/L LABORATORY Results may be falsely elevated if sample is not SERVICES collected on ice or is not removed from cells within 6 hours of collection. Reference range may not apply to non-fasting samples. It is not recommended that EDTA and serum from the same patient be used interchangeably. Serum concentrations have been observed to be up to 10% higher than EDTA plasma. ??Reference range may not apply to serum results. The results of this assay can be falsely elevated due to the consumption of Biotin. Specimen Blood specimen (specimen) - Blood Performing Organization Address City/[facility] Code Phon e Number [facility] [address] [place] [address] SERVICES PROTEIN S ACTIVITY (08/28/2017 11:09 EDT) Protein S 147 64 - 147 % [facility] Activity Comment: LABORATORY SERVICES a. ??Acquired Protein S defi ciencies are associated with vitamin K antagonists, acute thrombotic events, , vitamin K deficie ncy, L-aspariginase treatment and inflammatory syndrome. Def iciencies may or may not be present in liver disease and DIC. b. ??Results may be affected by plasma h eparin levels greater than 1.6U/mL for UFH or greater than 1.8 U/mL for LMWH. c. ??Results may be overestimated in the presence of d irect Xa inhibitors (rivaroxaban, apixaban, edoxaban) and direct thr ombin inhibitors (dabigatran, argatroban, bivalirudin). d. ??Acute illness and/or thrombosis may influence ivory t results in an unpredictable manner, therefore results should b e interpreted with caution in this setting. e. ??Age and hormonal status may affect the normal ran ge for females. Specimen Blood specimen (specimen) - Blood Performing Organization Address City/[facility]/ZIP Code Phon e Number [facility] [address] [place] [address] SERVICES (ABNORMAL) HEMAGRAM AND DIFFERENTIAL (08/28/2017 11:09 EDT) Pathologist Sig nature WBC 4.32 4.0 - 12.4 [facility] K/[facility] LABORATORY SERVICES RBC 4.13 3.86 - 5.04 [facility] M/[facility] LABORATORY SERVICES Hemoglobin 12.9 11.6 - 15.2 [facility] gm/dl LABORATORY SERVICES HCT 38.8 34.9 - 44.4 % [facility] LABOR[facility]ORY SERVICES MCV 94 81 - 98 fl [facility]OR[facility] SERVICES MCH 31.2 26.7 - 33.3 pg [facility] LABORATORY SERVICES MCHC 33.2 32.1 - 35.9 [facility] gm/dl LABORATORY SERVICES RDW-CV 12.5 <14.7 % [facility] LABORATORY SERVICES RDW-SD 43.6 <50.4 fl [facility] LABORATORY SERVICES PLT 231 141 - 377 K/[facility] LABORATORY SERVICES MPV 9.6 9.5 - 12.7 fl [facility]OR[facility] SERVICES Neutrophils 66.9 % [facility] SERVICES Lymphocytes 22.9 % [facility] SERVICES Monocytes 8.8 % [facility]OR[facility] SERVICES Eosinophils 0.7 % [facility]OR[facility] SERVICES Basophils 0.5 % [facility] SERVICES Immature Grans 0.2 % [facility] LABOR[facility] SERVICES ABS Neutrophils 2.89 2.20 - 8.85 [facility] K/[facility] LABORATORY SERVICES ABS Lymphs 0.99 (L) 1.09 - 3.30 [facility] K/[facility] LABORATORY SERVICES ABS Monocytes 0.38 0.1 - 0.8 /[facility] LABORATORY SERVICES ABS Eosinophils 0.03 0.03 - 0.61 [facility] K/[facility] LABORATORY SERVICES ABS Basophils 0.02 0.01 - 0.11 [facility] K/[facility] LABORATORY SERVICES ABS Immature Grans 0.01 0 - 0.06 /[facility] LABORATORY SERVICES Type of Diff: Automated [facility] LABORATORY SERVICES Specimen Blood specimen (specimen) - Blood Performing Organization Address City/[facility]/ZIP Code Phon e Number [facility] [address] [place] [address] SERVICES SYPHILIS SEROLOGY (08/28/2017 11:09 EDT) Syphilis Serology NegativeComment: [facility] Reference Range: LABORATORY SERVICES Negative Specimen Blood specimen (specimen) - Blood Performing Organization Address [facility] Phon e Number [facility] [address] [place] [address] SERVICES ANGIOTENSIN CONVERTING ENZYME (DES) (08/28/2017 11:09 EDT) Angiotensin 17 8 - 53 U/L [facility] Converting Enzyme Comment: LABORATORY Performed or Referred by: [facility], [address] [place] [address], Lab Dir: Nimesh Osorio I I, M.D., Ph.D. Specimen Blood specimen (specimen) - Blood Performing Organization Address [facility] Phon e Number [facility] [address] [place] [address] SERVICES SED. RATE:WESTERGREN (08/28/2017 11:09 EDT) Pathologist Sig nature Sed. Rate Westergren 2 0 - 30 mm/hr [facility] SERVICES Specimen Blood specimen (specimen) - Blood Performing Organization Address [facility]/ZIP [facility] Phon e Number [facility] [address] [place] [address] SERVICES BUN (08/28/2017 11:09 EDT) Pathologist [facility] nature BUN 17 10 - 26 mg/dl [facility] LABORATO RY SERVICES Specimen Blood specimen (specimen) - Blood Performing Organization Address [facility]/ZIP [facility] Phon e Number [facility] [address] [place] [address] SERVICES FOLATE (08/28/2017 11:09 EDT) Pathologist Sig nature Folate 19.1 ng/ml [facility] Comment: LABORATORY SERVICES Deficient: ??Less than 3.4 ng/mL Indeterminate: ??3.4-5.4 ng/mL Normal: ??Greater than 5.4 ng/mL The results of this assay can be falsely elevated due to the consumption of Biotin. Specimen Blood specimen (specimen) - Blood Performing Organization Address [facility]/ZIP [facility] Phon e Number [facility] [address] [place] [address] SERVICES CREATININE (08/28/2017 11:09 EDT) Creatinine 0.80 0.52 - 1.04 [facility] mg/dl LABORATORY SERVICES GFR, Calculated 72 >60 [facility] Comment: ml/min/1.73m2 LABORATORY eGFR calculated using CKD-EPI equation for SERVICES non Americans. Multiply eGFR by 1.16 for Americans. Specimen Blood specimen (specimen) - Blood Performing Organization Address City/[facility]/ZIP [facility] Phon e Number [facility] [address] [place] [address] SERVICES C REACTIVE PROTEIN (08/28/2017 11:09 EDT) Pathologist Sig nature C Reactive Protein <7.0 <10.0 mg/L [facility] LABOR[facility] SERVICES Specimen Blood specimen (specimen) - Blood Performing Organization Address [facility] e Number [facility] [address] [place] [address] SERVICES (ABNORMAL) METHYLMALONIC ACID (08/28/2017 11:09 EDT) Pathologist [facility] Methylmalonic Acid 0.84 (H) <=0.40 [facility] Comment: nmol/mL CENTER (Note) LABORATORY In this sample, the concentration of methylmalonic aci d SERVICES (MMA) was elevated. This finding is likely related to vitamin B12 deficiency. . ADDITIONAL INFORMATION ------ This test was developed and its performance characteri stics determined by [facility] in a manner consistent with CLIA requirements. This test has not been cleared or approv ed by the U.S. Food and Drug Administration. Performed or Referred by: [facility], [address] [place] [address], Lab Dir: Nimesh junior II, M.D., Ph.D. Specimen Blood specimen (specimen) - Blood Performing Organization Address City/[facility] Phon e Number [facility] [address] [place] [address] SERVICES VITAMIN B12 (08/28/2017 11:09 EDT) Pathologist [facility] Vitamin B-12 215 097 - 911 [facility] Comment: pg/ml LABORATORY SERVICES The results of this assay can be falsely lowered due to the consumption of Biotin. Specimen Blood specimen (specimen) - Blood Performing Organization Address City/[facility]/ZIP Code Phon e Number [facility] [address] [place] [address] SERVICES VITAMIN A, S (08/28/2017 11:09 EDT) Vitamin A 60.6 32.5 - 78.0 [facility] Comment: mcg/dL LABORATORY (Note) SERVICES . ADDITIONAL INFORMATION ------ This test was developed and its performance characteri stics determined by [facility] in a manner consistent with CLIA requirements. This test has not been cleared or approv ed by the U.S. Food and Drug Administration. Performed by: [facility]: [address], [place] [address], Lab Dir: Nimesh Osorio II, M.D., Ph.D. Specimen Blood specimen (specimen) - Blood Performing Organization Address City/[facility] Code Phon e Number [facility] [address] [place] [address] SERVICES documented in this encounter Visit Diagnoses Diagnosis Visual field defect - Primary Visual field defect, unspecified Macular degeneration of both eyes, unspe cified type documented in this encounter Historical Medications This list may reflect changes made after this encounter. Medication Sig Dispensed Refills Start Date End Date ALBUTEROL INHL Inhale as directed 0 as needed. Multivitamins with Take 1 Tab by mouth 0 Minerals tablet tablet daily. NIFEdipine XL Take 30 mg by mouth 0 (PROCARDIA-XL) 30 mg daily. tablet lisinopril (PRINIVIL, Take 2.5 mg by mouth 0 ZESTRIL) 2.5 mg tablet daily. aspirin 81 mg EC tablet Take 81 mg by mouth 0 11/16/2017 daily. added in this encounter Eye Exam Visual Acuity (Snellen - Linear) Right eye Left eye Dist cc 20/25 +2 20/40 Near cc J2 20/400+ Tonometry (Applanation, 9:50) Right eye Left eye Pressure 15 14 Pupils Dark Light React APD Right eye 4 2 Brisk None Left eye 4 2 Brisk None Visual Flower Right eye Left eye Full Full Extraocular Movement Right eye Left eye Full, Ortho Full, Ortho Neuro/Psych Oriented x3: Yes Mood/Affect: Anxious Amsler Right eye Left eye Wavy lines Missing lines left i nferior Color Right eye Left eye AO PIP 8.5/14 4 Stereo Fly: + Circles: 2/9 Slit Lamp Exam Right eye Left eye [...] Periphery Normal Normal Wearing Rx Sphere Cylinder Renner Add Right eye -1.25 +1.25 180 +2.50 Left eye +0.50 Sphere +2.50 Age: 1m Type: PAL Manifest Refraction (Retinoscopy) Sphere Cylinder Renner Dist VA Add Near VA Right eye -1.00 +1.50 010 20/25+ +2.50 J1+ Left eye [place] +0.75 165 20/30 +2.50 J2 Care Teams Program Support Assistant Relationship Specialty Start Date End Date Raquel Martin PA-C PCP - General 08/28/17 [address] [place] [phone] documented as of this encounter
--- OUTSIDE RECORDS SUMMARY | 2021-11-18 18:25 | XMS_ITS | Encounter Summary ---
:1940 Author Organization [facility] Address [address] [place] [address] Care Team Providers Name Role Phone Raquel Martin [facility] Primary Care Provider [phone] Reason for Visit Reason Onset Date Comments Appointment Related 12/19/2017 Encounter Details Date Type Department Care Team Description 12/19/2017 Telephone [facility] Carmen Rodriguez A ppointment Related Neurosurgery - [facility] [place] [address] [place] [address], [place] [id number] [place] [address] [phone] (Wo rk) Social History Tobacco Use [...] a physical, mental, or emotional condition, No 12/18/2017 does this person have difficulty doing errands alone such as visiting a doctor's office or shopping? Cognitive Status Response Date of Assessment Because of a physical, mental, or emotional condition, No 12/18/2017 does this person have serious difficulty concentrating, remembering, or making decisions? documented as of this encounter Miscellaneous Notes Telephone Encounter - Lucia Olvera - 12/19/2017 0917 EDT Spoke to patient regarding CT scan scheduled for 01/01 at 1PM with an arrival of 12:30 at registration. She will then see Carmen at 2PM. documented in this encounter Plan of Treatment Not on filedocumented as of this encounter Visit Diagnoses Not on filedocumented in this encounter Care Teams Water Attendant Relationship Specialty Start Date End Date Raquel Martin PA-C PCP - General 08/28/17 [address] [place] [address] documented as of this encounter
--- OUTSIDE RECORDS SUMMARY | 2021-11-18 18:25 | XMS_ITS | Encounter Summary ---
:1940 Author Organization [facility] Address [address] [place] [address] Care Team Providers Name Role Phone Raquel Martin PA-C Primary Care Provider [phone] Reason for Visit Reason Onset Date Comments Appointment Related 09/25/2017 Encounter Details Date Type Department Care Team Description 09/25/2017 Telephone [facility] Dennis Henao Ap pointment Related Neurosurgery - [address] [address] [address], [place] [phone] (Wo rk) Social History Tobacco Use Types Packs/Day Years Used Date Former Smoker Quit: 08/29/19 07 Smokeless Tobacco: Never Used Alcohol Use Standard Drinks/Week Comments No 0 (1 standard drink = 0.6 oz pure alcoho l) Sex Assigned at Date Recorded Not on file documented as of this encounter Miscellaneous Notes Telephone Encounter - Iza Pimentel - 09/25/2017 0951 EDT Confirmed for patient with the following appointment details: Date:09/27/2017 Arrival time:12:45 Appt time:1pm Provider:Dr. Henao Location:EP5 Advised patient to contact our office with any questions. The phone number and directions to the clinic were provided. documented in this encounter Plan of Treatment Not on filedocumented as of this encounter Visit Diagnoses Not on filedocumented in this encounter Care Teams Publicity Director Relationship Specialty Start Date End Date Raquel Martin PA-C PCP - General 08/28/17 [address] [place] [phone] documented as of this encounter
--- OUTSIDE RECORDS SUMMARY | 2021-11-18 18:25 | XMS_ITS | Encounter Summary ---
:1940 Author Organization [facility] Address [address] [place] [address] Care Team Providers Name Role Phone Raquel Martin PA-C Primary Care Provider [phone] Reason for Visit Reason Comments Follow-up aneurysm, IR 10/10/17 Encounter Details Date Type Department Care Team Description 10/18/2017 Office Visit [facility] Dennis Henao Ce rebral aneurysm, Neurosurgery - Main nonruptured (Primary [place] [address] [place] [address]) [address] [place], [place] [id number] [place] [address] [place], [address] [place] [phone] (Wo rk) Social History Tobacco Use Types Packs/Day Years Used Date Former Smoker Quit: 08/29/19 07 Smokeless Tobacco: Never Used Alcohol Use Standard Drinks/Week Comments No 0 (1 standard drink = 0.6 oz pure alcoho l) Sex Assigned at Date Recorded Not on file documented as of this encounter Last Filed Vital Signs Vital Sign Reading Time Taken Comments Blood Pressure 170/92 10/18/2017 1423 EDT Pulse 76 10/18/2017 1423 EDT Temperature - - Respiratory Rate 16 10/18/2017 1423 EDT Oxygen Saturation - - Inhaled Oxygen Concentration - - Weight - - Height - - Body Mass Index - - documented in this encounter Functional Status Functional Status Response Date of Assessment Because of a physical, mental, or emotional condition, No 10/18/2017 does this person have difficulty doing errands alone such as visiting a doctor's office or shopping? Cognitive Status Response Date of Assessment Because of a physical, mental, or emotional condition, No 10/18/2017 does this person have serious difficulty concentrating, remembering, or making decisions? documented as of this encounter Discharge Diagnoses Diagnosis I67.1 Cerebral aneurysm, nonruptured-I67 .1[ICD-10-CM] documented in this encounter Patient Instructions Patient InstructionsIza Haynes - 10/18/2017 14:30 EDT Surgery scheduled on 11/12/[address] Dennis Henao ?? Please schedule a pre-op physical with you primary doctor within 30 days of your surgery date (The week of October 29 is ideal) ?? A nurse from pre-op anesthesia will call you to review your medications ?? Our office will contact you closer to your surgery date with your arrival/surgery times POST- OPERATIVE INSTRUCTIONS FOLLOWING BRAIN SURGERY 1. [...] 4 PM, Sunday through Sunday. Triage line [phone]. 17. After hours, there is always a doctor receptionist nurse for emergencies or go to your local hospital emergency department. Call our office within one week of discharge at or for an appointment or if any problems such as signs of infection or above symptoms. documented in this encounter Discharge Disposition Disposition Code Departure Means Destination Auto Discharge documented in this encounter Progress Notes Debby Polo RN - 10/18/2017 1430 EDT Patient Education Topic: craniotomy for aneurysm clipping Method: Verbal, Written, Taught to: Family and Patient Barriers: None Outcomes: independent and verbalized understanding PREPARING FOR SURGERY, A patient's guide was reviewed with the patient. Smoking cessation guidelines per patient guide unless otherwise documented by Physician. The patient was encouraged to review all instructions at home. Medications reviewed and reconciled Advised patient to DC all NSAIDS, vitamins and herbal supplements 7 days prior to procedure. Aspirin/Antiplatelet therapy-instructed the patient to stop aspirin 7 days prior to procedure Immunosuppressive therapy-none Insulin/oral hypoglycemic agents-none DES inhibitor/ARB therapy-instructed to stop the day before surgery Post-Op instructions reviewed. Collar/braces: no Advanced directive information provided. Pain Consult:no MRSA/MSSA protocol:no AGREEMENT FOR POST-OPERATIVE NON-INVASIVE VENTILATION-not applicable Signature: Emili LUGO Dennis Bishop MD - 10/18/2017 1430 EDT This office note has been dictated. Dennis Bishop MD - 10/18/[address] [facility] NEUROLOGICAL SURGERY PROGRESS / FOLLOWUP NOTE - 10/18/2017 Raquel Martin PA-C [address] [phone] Dear Veronica: I had the pleasure of seeing your patient, Rehan Gann, back in my neurosurgery office at [facility] on 10/18/2017. She is known to have a moderate-sized left pericallosal aneurysm. This was found incidentally on a CAT scan that was done for assessment of visual deterioration in her left eye. The CAT scan showed a 7 mm left pericallosal (A2) aneurysm. When I last saw her 09/27/2017, I discussed managementof this problem. One could monitor it by CTA over the next few years or one could go ahead with surgery. She does know that there is about a 1% risk per year of rupture and if it does rupture, the consequences could be serious. In order to fully assess the aneurysm and to assess whether endovascular or surgical treatment was possible, I did have her undergo a cerebral angiogram. The angiogram was done on 10/10/2017 and the angiogram shows the aneurysm which is a 7 mm pericallosal aneurysm coming off of the left A2 vessel. Surrounding anatomy is clearly seen on the angiogram. Dr Don Vela performed the angiogram and he is one of our endovascular radiologists, and he feltthat the risk of endovascular treatment was quite high and therefore, to definitively treat this aneurysm, surgical clipping is necessary. Today, pros and cons of surgical clipping were discussed with Mrs Gann and with her relatives. The possible complications were also discussed and are clearly listed on our consent form, which will be reviewed with her by our neurosurgery nurse. On the consent, the risks are listed and will be reviewed with her by our nurse. She wishes to proceed with surgery as soon as possible to get this aneurysm definitively dealt with.I believe she is fully consented and we will proceed in the near future. I will keep you informed. Thanks for asking us to help with her care. Sincerely, Dennis Henao MD 03 13 PM - Dennis Henao MD an Dictation ID: [id number] cc: Raquel Martin PA-C, [facility] [address] [place] [address] Sohail Chaudhry MD, [facility] - Ophthalmology [address] [place] [id number] signed by Dennis Henao MD at 10/20/2017 10:35 EDTdocumented in this encounter Plan of Treatment Not on filedocumented as of this encounter Visit Diagnoses Diagnosis Cerebral aneurysm, nonruptured - Primary documented in this encounter Care Teams Instructional Paraprofessional Relationship Specialty Start Date End Date Raquel Martin PA-C PCP - General 08/28/17 [address] [place] [phone] documented as of this encounter
--- OUTSIDE RECORDS SUMMARY | 2021-11-18 18:25 | XMS_ITS | Encounter Summary ---
:1940 Author Organization [facility] Address [address] [place] [address] Care Team Providers Name Role Phone Raquel Martin PA-C Primary Care Provider [phone] Encounter Details Date Type Department Care Team Description 01/01/2018 Hospital Encounter [facility], Carmen [place], [facility] ANGEL [address] [facility] [address] [place] [address] [place] [address] [place] [phone] (Wo rk) Social History Tobacco Use Types [...] Diagnoses Diagnosis I67.1 Cerebral aneurysm, nonruptured-I67 .1[ICD-10-CM] Z09 Encntr for f/u exam aft trtmt for co nd oth than en neoplm-Z09[ICD-10-CM] documented in this encounter Medications at Time [...] on filedocumented in this encounter Care Teams Biodiesel Operations Manager Relationship Specialty Start Date End Date Raquel Martin PA-C PCP - General 08/28/17 [address] [place] [phone] documented as of this encounter
--- OUTSIDE RECORDS SUMMARY | 2021-11-18 18:25 | XMS_ITS | Encounter Summary ---
:1940 Author Organization [facility] Address [address] [place] [address] Care Team Providers Name Role Phone Raquel Martin PA-C Primary Care Provider [phone] Encounter Details Date Type Department Care Team Description 11/07/2017 Pre-Procedure [facility] Najoby, Carmen Cerebra l aneurysm, Orders Encounter Neurosurgery - [facility] ANGEL [place] nonruptured [place] [address] [place] [address] (Primary Dx) [address] [place], [place] [phone] [place], [place] [address] [place] [phone] Social History Tobacco Use Types Packs/Day Years [...] Primary documented in this encounter Care Teams Oven Laborer Relationship Specialty Start Date End Date Raquel Martin PA-C PCP - General 08/28/[address] [place] [phone] documented as of this encounter
--- OUTSIDE RECORDS SUMMARY | 2021-11-18 18:25 | XMS_ITS | Encounter Summary ---
:1940 Author Organization [facility] Address [address] [place] [address] Care Team Providers Name Role Phone Raquel Martin PA-C Primary Care Provider [phone] Encounter Details Date Type Department Care Team Description 08/28/2017 Phlebotomy Only [facility] Vessel LinerPamela field defect - [facility] Outpatient (Primary Dx) [address], [place] [phone] Social History Tobacco Use Types Packs/Day Years [...] Procedure Name Priority Date/Time Associated Comments Diagnosis SYPHILIS SEROLOGY Routine 08/28/2017 11:09 Visual field defect Results for this EDT procedure are i n the results section. PROTEIN S ACTIVITY Routine 08/28/2017 11:09 Visual field defec t Results for this EDT procedure are i n the results section. METHYLMALONIC ACID Routine 08/28/2017 11:09 Visual field defec t Results for this EDT procedure are i n the results section. VITAMIN A, S Routine 08/28/2017 11:09 Visual field defect Resu lts for this EDT procedure are i n the results section. SED RATE Routine 08/28/2017 11:09 Visual field defect Resu lts for this EDT procedure are i n the results section. COMPLETE BLOOD COUNT Routine 08/28/2017 11:09 Visual field def ect Results for this AND DIFFERENTIAL EDT procedure a re in the results section. ANGIOTENSIN CONVERTING Routine 08/28/2017 11:09 Visual field d efect Results for this ENZYME (DES) EDT procedure are i n the results section. C REACTIVE PROTEIN Routine 08/28/2017 11:09 Visual field defec t Results for this EDT procedure are i n the results section. BUN Routine 08/28/2017 11:09 Visual field defect Resu lts for this EDT procedure are i n the results section. HOMOCYSTEINE Routine 08/28/2017 11:09 Visual field defect Resu lts for this EDT procedure are i n the results section. FOLATE Routine 08/28/2017 11:09 Visual field defect Resu lts for this EDT procedure are i n the results section. VITAMIN B12 Routine 08/28/2017 11:09 Visual field defect Resu lts for this EDT procedure are i n the results section. CREATININE Routine 08/28/2017 11:09 Visual field defect Resu lts for this EDT procedure are i n the results section. documented in this encounter Results (ABNORMAL) HOMOCYSTEINE (08/28/2017 11:09 EDT) Homocysteine 25.0 (H) 4.5 - 12.4 [facility] Comment: umol/L LABORATORY Results may be [...] Organization Address City/State/ZIP Code Phon e Number [facility] LABORATORY [address] [place] [address] SERVICES PROTEIN S ACTIVITY (08/28/2017 11:09 EDT) Protein S 147 64 - 147 % [facility] Activity Comment: LABORATORY SERVICES a. ??Acquired [...] Organization Address City/State/ZIP Code Phon e Number [facility] [address] [place] [address] SERVICES (ABNORMAL) HEMAGRAM AND DIFFERENTIAL (08/28/2017 11:09 EDT) Pathologist Sig nature WBC 4.32 4.0 - 12.4 [facility] LABORATORY SERVICES RBC 4.13 3.86 - 5.04 [facility] LABORATORY SERVICES Hemoglobin 12.9 11.6 - 15.2 [facility] gm/dl LABORATORY SERVICES HCT 38.8 34.9 - 44.4 % [facility] LABORATORY SERVICES MCV 94 81 - 98 fl [facility] LABORATORY SERVICES MCH 31.2 26.7 - 33.3 pg [facility] LABORATORY SERVICES MCHC 33.2 32.1 - 35.9 [facility] gm/dl LABORATORY SERVICES RDW-CV 12.5 <14.7 % [facility] LABORATORY SERVICES RDW-SD 43.6 <50.4 fl [facility] LABORATORY SERVICES PLT 231 141 - 377 K/[facility] LABORATORY SERVICES MPV 9.6 9.5 - 12.7 fl [facility] LABORATORY SERVICES Neutrophils 66.9 % [facility] LABORATORY SERVICES Lymphocytes 22.9 % [facility] LABOR[facility]ORY SERVICES Monocytes 8.8 % [facility] LABORATORY SERVICES Eosinophils 0.7 % [facility] LABORATORY SERVICES Basophils 0.5 % [facility] LABORATORY SERVICES Immature Grans 0.2 % [facility] LABORATORY SERVICES ABS Neutrophils 2.89 2.20 - 8.85 [facility] LABORATORY SERVICES ABS Lymphs 0.99 (L) 1.09 - 3.30 [facility] LABORATORY SERVICES ABS Monocytes 0.38 0.1 - 0.8 K/m [facility] LABORATORY SERVICES ABS Eosinophils 0.03 0.03 - 0.61 [facility] LABORATORY SERVICES ABS Basophils 0.02 0.01 - 0.11 [facility] LABORATORY SERVICES ABS Immature Grans 0.01 0 - 0.06 /[facility] LABORATORY SERVICES Type of Diff: Automated [facility] LABORATORY SERVICES Specimen Blood specimen (specimen) - Blood Performing Organization Address [facility]/[place] [facility] Phon e Number [facility] [address] [place] [address] SERVICES SYPHILIS SEROLOGY (08/28/2017 11:09 EDT) Pathologist [facility] Syphilis Serology NegativeComment: [facility] Reference Range: LABORATORY SERVICES Negative Specimen Blood specimen (specimen) - Blood Performing Organization Address [facility] Phon e Number [facility] [address] [place] [address] SERVICES ANGIOTENSIN CONVERTING ENZYME (DES) (08/28/2017 11:09 EDT) Angiotensin 17 8 - 53 U/L [facility] Converting [employer]zyme Comment: LABORATORY Performed or Referred by: [facility], [address] [place] [address], Lab Dir: Nimesh Osorio I I, M.D., Ph.D. Specimen Blood specimen (specimen) - Blood Performing Organization Address [facility]/ZIP [facility] Phon e Number [facility] [address] [place] [address] SERVICES SED. RATE:WESTERGREN (08/28/2017 11:09 EDT) Pathologist Sig nature Sed. Rate Westergren 2 0 - 30 mm/hr [facility] LABORATORY SERVICES Specimen Blood specimen (specimen) - Blood Performing Organization Address City/[facility]/ZIP [facility] Phon e Number [facility] [address] [place] [address] SERVICES BUN (08/28/2017 11:09 EDT) Pathologist Sig nature BUN 17 10 - 26 mg/dl [facility] LABORATO RY SERVICES Specimen Blood specimen (specimen) - Blood Performing Organization Address City/[facility]/ZIP [facility] Phon e Number [facility] [address] [place] [address] SERVICES FOLATE (08/28/2017 11:09 EDT) Pathologist Sig nature Folate 19.1 ng/ml [facility] Comment: LABORATORY SERVICES Deficient: ??Less than 3.4 ng/mL Indeterminate: ??3.4-5.4 ng/mL Normal: ??Greater than 5.4 ng/mL The results of this assay can be falsely elevated due to the consumption of Biotin. Specimen Blood specimen (specimen) - Blood Performing Organization Address [facility]/ZIP Code Phon e Number [facility] [address] [place] [address] SERVICES CREATININE (08/28/2017 11:09 EDT) Creatinine 0.80 0.52 - 1.04 [facility] mg/dl LABORATORY SERVICES GFR, Calculated 72 >60 [facility] Comment: ml/min/1.73m2 LABORATORY eGFR calculated using CKD-EPI equation for SERVICES non Americans. Multiply eGFR by 1.16 for Americans. Specimen Blood specimen (specimen) - Blood Performing Organization Address [facility]/ZIP Code Phon e Number [facility] [address] [place] [address] SERVICES C REACTIVE PROTEIN (08/28/2017 11:09 EDT) Pathologist Sig nature C Reactive Protein <7.0 <10.0 mg/L [facility] LABORATORY SERVICES Specimen Blood specimen (specimen) - Blood Performing Organization Address [facility] Phon e Number [facility]ORY [address] [place] [address] SERVICES (ABNORMAL) METHYLMALONIC ACID (08/28/2017 11:09 EDT) Methylmalonic Acid 0.84 (H) <=0.40 [facility] Comment: nmol/mL CENTER (Note) LABORATORY In this sample, the concentration of methylmalonic aci d SERVICES (MMA) was elevated. This finding is likely related to vitamin B12 deficiency. . ADDITIONAL INFORMATION ------ This test was developed and its performance characteri stics determined by [facility] in a manner consistent with CLIA requirements. This test has not been cleared or approv ed by the U.S. Food and Drug Administration. Performed or Referred by: [facility] Labs [facility], [address] [place] [address], Lab Dir: Nimesh junior II, M.D., Ph.D. Specimen Blood specimen (specimen) - Blood Performing Organization Address City/[facility]/ZIP Code Phon e Number [facility] [address] [place] [address] SERVICES VITAMIN B12 (08/28/2017 11:09 EDT) Vitamin B-12 215 211 - 911 [facility] Comment: pg/ml LABORATORY SERVICES The results of this assay can be falsely lowered due to the consumption of Biotin. Specimen Blood specimen (specimen) - Blood Performing Organization Address [facility] e Number [facility]ORY [address] [place] [address] SERVICES VITAMIN A, S (08/28/2017 11:09 EDT) Vitamin A 60.6 32.5 - 78.0 [facility] Comment: mcg/dL LABORATORY (Note) SERVICES . ADDITIONAL INFORMATION ------ This test was developed and its performance characteri stics determined by [facility] in a manner consistent with CLIA requirements. This test has not been cleared or approv ed by the U.S. Food and Drug Administration. Performed by: [facility] Labs: [facility] [address], [place] [address], Lab Dir: Nimesh Osorio II, M.D., Ph.D. Specimen Blood specimen (specimen) - Blood Performing Organization Address City/[facility]/ZIP [facility] Ph[place] e Number [facility] [address] [place] [address] SERVICES documented in this encounter Visit Diagnoses Diagnosis Visual field defect - Primary Visual field defect, unspecified documented in this encounter Care Teams Nurse Quality Relationship Specialty Start Date End Date Raquel Martin PA-C PCP - General 08/28/17 [address] [place] [address] documented as of this encounter
--- OUTSIDE RECORDS SUMMARY | 2021-11-18 18:25 | XMS_ITS | Encounter Summary ---
:1940 Author Organization [facility] Address [address] [place] [address] Care Team Providers Name Role Phone Unknown, Provider Primary Care Provider Encounter Details Date Type Department Care Team Description 07/11/2016 Results Only [facility]- Samara Milan MD [phone] [address] [facility] [place] [address] Social History Tobacco Use Types Packs/Day Years Used Date Never Assessed Sex Assigned at Date Recorded Not on file documented as of this encounter Plan of Treatment Not on filedocumented as of this encounter Procedures Procedure Name Priority Date/Time Associated Diagnosis Comme nts PAP TEST- RESULT Routine 07/11/2016 0:00 EDT Resu lts for this ONLY procedure are i n the results section. documented in this encounter Results PAP TEST- RESULT ONLY (07/11/2016 0:00 EDT) Pathology Report: CYTOPATHOLOGY REPORT [facility] Reports generated via electronic interface contain audelia ginal data; SERVICES however they are lacking the format of the original re port. Caution should be taken when reading/interpreting unfo rmatted reports. Name: ? REHAN FRITZ ? Accession #: ? [id number] ? : ? 1940 (Age: 76 ) ??F ?Collect Date: ? 07/11/2016 ? Location: ? [facility] ? Receive Date: ? 07/13/19 17 ? Provider: SAMARA BLANCO MD Copy to: CLAY GAMA PA-C ? Final Report SPECIMEN ADEQUACY ? Satisfactory for Evaluation - transformation zone component present GENERAL CATEGORIZATION ? Negative for Intraepithelial Lesion or Malignan cy ?? Menstrual/ Status: ??Post Menopausal Previous Gynecologic Pathology: HPV: + HX Specimen/Source: ??Pap Test, Cervix, ThinPrep Imaging System with manual evaluation Document reviewed and electronically signed by: ? Boyd Boswell, CT(ASCP) ? Report ??Date: 07/21/2016 14:32 HPV with Pap Test ? Date Ordered: ? 07/21/2016 ? Status: ?? Signed Out ?Date Complete: ? 07/25/2016 ? By: ??Sys tem Interface ? Date Reported: ? 07/25/2016 ? Interpretation RESULT: Negative for HPV. No E6 or E7 mRNA is detected from HPV types 16,18,31,3 3,35, 39,45,51,52,56,58,59,66, and 68 by fountain roller assembler media ivis amplification. Comments Document reviewed and electronically signed by: ? System Interface ? Report date: 07/25/2016 By the signature above, the attending physician certif ies that he/she has personally conducted a gross and/or microscopic examin ation of the described specimens and rendered or confirmed the above diagnosi s. End of Report Specimen Performing Organization Address City/State/ZIP Code Phon e Number [facility] [address] [place] [address] SERVICES documented in this encounter Visit Diagnoses Not on filedocumented in this encounter Care Teams Senior Architectural Designer Relationship Specialty Start Date End Date Unknown, Provider, PCP - General 06/30/11 08/27/17 documented as of this encounter
--- OUTSIDE RECORDS SUMMARY | 2021-11-18 18:25 | XMS_ITS | Encounter Summary ---
:1940 Author Organization [facility] Address [address] [place] [address] Care Team Providers Name Role Phone Unavailable Primary Care Provider Unavailable Encounter Details Date Type Department Care Team Description 09/07/2006 Results Only [facility] - Anthony Rubin MD Maple conversion [address] [place] [address] [place] [address] Social History Tobacco Use Types Packs/Day Years Used Date Never Assessed Sex Assigned at Date Recorded Not on file documented as of this encounter Plan of Treatment Not on filedocumented as of this encounter Procedures Procedure Name Priority Date/Time Associated Comments Diagnosis HPV DETECTION, HIGH Routine 09/07/2006 14:00 Resu lts for this RISK TYPES EDT procedure are i n the results section. CYTOPATHOLOGY Routine 09/07/2006 0:00 Results for this EDT procedure are i n the results section. documented in this encounter Results HUMAN PAPILLOMA VIRUS DNA TEST (09/07/2006 14:00 EDT) Specimen Description Cervix, ThinPrep [facility] Result Positive for one or more of HPV types 16,18,31,33,35,39,45,51,52,56,58,59, or 68. These ROWAN A LLEN high/intermediate risk HPV t ypes are associated with dysplasia and some cervical cancers. LAB Report Status Final [facility] [id number] [facility] Specimen Performing Organization Address City/State/ZIP Code Phon e Number [facility] [address] [place] [address] SERVICES [facility] [address] [place] [address] CYTOPATHOLOGY (09/07/2006 0:00 EDT) Pathology Report: CYTOPATHOLOGY REPORT [facility] Reports generated via electronic interface contain audelia ginal data; however they are lacking the format of the original re port. Caution should be taken when reading/interpreting unfo rmatted reports. Name: ? REHAN FRITZ ? Accession #: ? [id number] : ? 1940 (Age: 66) ??F ?Collect Date: ? 08/24 Location: ? [facility] ? Receive Date : ? 09/10/2006 Provider: ?LUDY RUBIN MD Copy to: ? Specimen/Source: ? ThinPrep Pap Test, Cervix/Endocervix, processed on Blippar ThinPrep Imaging System, with manual evaluation Last Menstrual Period: ? 1993 Previous Gynecologic Pathology: ? SKYE III: JESUS: ASC-US: 08/26, 08/27, 02/26 HPV: 08/27, 02/26 Treatment History: ? Colposcopy: LEEP: Miscellaneous treatment: Endocervical Cautery Other: ? HPVA - HPV testing requested if ASC-US on the current ThinPrep Pap test. ? SPECIMEN ADEQUACY ? Satisfactory for Evaluation - transformation zone component present GENERAL CATEGORIZATION ? Epithelial Cell Abnormality INTERPRETATION ? Squamous Cell Abnormality - Atypical squamous c ells, undetermined significance (ASC-US). EDUCATIONAL NOTES/RECOMMENDATIONS ? [facility] recommends joni wing the 2001 Consensus Guidelines for the Management of Women with Cervical Cytological Abnormalities (JAM A,2002;287:2120-9). Management algorithms have b een distributed by [facility] and are available online at www.ASCCP.org. ? Document reviewed and electronically signed by: ? TERESA BETANCOURT MD ? Report Date: ??09/17/2006 09:36 End of Report Specimen Performing Organization Address City/State/ZIP Code Phon e Number [facility] [address] [place] [address] SERVICES [facility] [address] [place] [address] documented in this encounter Visit Diagnoses Not on filedocumented in this encounter
--- OUTSIDE RECORDS SUMMARY | 2021-11-18 18:25 | XMS_ITS | Encounter Summary ---
:1940 Author Organization [facility] Address [address] [place] [address] Care Team Providers Name Role Phone Raquel Martin PA-C Primary Care Provider [phone] Reason for Referral Radiology Services (Routine) - Closed Specialty Diagnoses / Procedures Referred By Contact Refer red To Contact Diagnoses Abnormal head CT Carmen Rodriguez PA-C Procedures CT HEAD VENOGRAM W CONTRAST [address] [place] [phone] Referral ID Status Reason Start Date Expiration Date Visits Requ ested Visits Authorized [id number] Closed 12/26/2017 1 1 Encounter Details Date Type Department Care Team Description 12/26/2017 Orders Only [facility] Carmen Rodriguez A bnormal head CT Neurosurgery - Paddy ORTIZ (Primary Dx) [place] [address] [place] [address] [place] [address] (Wo rk) Social History Tobacco [...] Date/Time Associated Diagnosis Comme nts CT HEAD VENOGRAM W Routine 01/01/2018 12:[address] R esults for this CONTRAST EDT procedure are i n the results section. documented in this encounter Results CT HEAD VENOGRAM W CONTRAST (01/01/2018 12:58 EDT) Anatomical Region Laterality Modality Other Specimen Narrative [facility] - 01/01/2018 14:[address] HEAD VENOGRAM W CONTRAST ??01/01/2018 12:58 PM CLINICAL HISTORY: R93.0-Abnormal finding s on diagnostic imaging of skull and head, not elsewhere classified -ICD-10; High density in the right superior frontal focus I67.1-Cereb ral aneurysm, [id number] I62.00-Nontraumatic s ubdural hemorrhage, unspecified (HCC-CMS)-ICD-10; SDH, crani otomy for aneurysm clipping COMPARISON: December 18, 2017 TECHNIQUE: CT venogram of the head was p erformed with intravenous contrast. Multiple MIP and 3-D reconstru ctions were created and evaluated unadjusted if necessary on an independent workstation. The examination also includes an unenhanced head CT scan. FINDINGS: There are changes related to prior front al craniotomy. Small bilateral epidural fluid collection seen subjacent to the craniotomy flap. These appear similar to prior. On the right, this extends posteriorly over the convexity. Aneurysm clip seen in the interhemispher ic fissure anteriorly. In the medial left frontal lobe, there is a small region of encephalomalacia adjacent to the clip. S lightly larger region of encephalomalacia seen closer to the vert ex. 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 No arterial occlusion is identified. No additional aneurysms are seen. Evaluation of the venous structure s shows narrowing of the anterior portion of the superior sagitta l sinus which is likely postsurgical in nature. Posterior to the craniotomy, the superior sagittal sinus has a normal caliber. No venous sinus thrombosis is identified. There is mild asymmetry of t he transverse sinuses which is presumably congenital given asymmetry of the carotid bulbs and internal jugular veins. The orbits show no concerning abnormalit y. IMPRESSION: Postsurgical/posttreatment changes as de scribed above. No evidence of venous sinus thrombosis. The anterior portion of the superior sag ittal sinus along the craniotomy is narrow but does not appear to be thrombosed. Procedure Note Osiel Navarrete MD - 01/01/2018 CT HEAD VENOGRAM W CONTRAST 01/01/2018 12 :58 PM CLINICAL HISTORY: R93.0-Abnormal finding s on diagnostic imaging of skull and head, not elsewhere classified -ICD-10; High density in the right superior frontal focus I67.1-Cereb ral aneurysm, [id number] I62.00-Nontraumatic s ubdural hemorrhage, unspecified (HCC-CMS)-ICD-10; SDH, crani otomy for aneurysm clipping COMPARISON: December 18, 2017 TECHNIQUE: CT venogram of the head was p erformed with intravenous contrast. Multiple MIP and 3-D reconstru ctions were created and evaluated unadjusted if necessary on an independent workstation. The examination also includes an unenhanced head CT scan. FINDINGS: There are changes related to prior front al craniotomy. Small bilateral epidural fluid collection seen subjacent to the craniotomy flap. These appear similar to prior. On the right, this extends posteriorly over the convexity. Aneurysm clip seen in the interhemispher ic fissure anteriorly. In the medial left frontal lobe, there is a small region of encephalomalacia adjacent to the clip. S lightly larger region of encephalomalacia seen closer to the vert ex. 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 No arterial occlusion is identified. No additional aneurysms are seen. Evaluation of the venous structure s shows narrowing of the anterior portion of the superior sagitta l sinus which is likely postsurgical in nature. Posterior to the craniotomy, the superior sagittal sinus has a normal caliber. No venous sinus thrombosis is identified. There is mild asymmetry of t he transverse sinuses which is presumably congenital given asymmetry of the carotid bulbs and internal jugular veins. The orbits show no concerning abnormalit y. IMPRESSION: Postsurgical/posttreatment changes as de scribed above. No evidence of venous sinus thrombosis. The anterior portion of the superior sag ittal sinus along the craniotomy is narrow but does not appear to be thrombosed. Performing Organization Address City/State/ZIP Code Phon e Number [facility] documented in this encounter Visit Diagnoses Diagnosis Abnormal head CT - Primary Nonspecific (abnormal) findings on radio logical and other examination of skull and head documented in this encounter Care Teams Temperature Control Inspector Relationship Specialty Start Date End Date Raquel Martin PA-C PCP - General 08/28/17 [address] [place] [address] documented as of this encounter
--- OUTSIDE RECORDS SUMMARY | 2021-11-18 18:25 | XMS_ITS | Encounter Summary ---
:1940 Author Organization [facility] Address [address] [place] [address] Care Team Providers Name Role Phone Raquel Martin PA-C Primary Care Provider [phone] Reason for Visit Reason Onset Date Comments Post-OP Follow Up 11/19/2017 Encounter Details Date Type Department Care Team Description 11/19/2017 Telephone [place] Debby Polo Pos t-OP Follow Up Neurosurgery - [facility] RN [address] [place] [address] Social History Tobacco Use Types [...] Telephone Encounter - Debby Polo RN - 11/19/2017 1259 EDT Rehab Physician called to say the patient does not have ailyn. elephone Encounter - Debby Polo RN - 11/19/2017 1012 EDT Spoke with Director at [facility] and advised staple removal at 14 days post procedure. documented in this encounter Plan of Treatment Not on filedocumented as of this encounter Visit Diagnoses Not on filedocumented in this encounter Care Teams Accountant Certified Public Relationship Specialty Start Date End Date Raquel Martin PA-C PCP - General 08/28/[address] [place] [phone] documented as of this encounter
--- OUTSIDE RECORDS SUMMARY | 2021-11-18 18:25 | XMS_ITS | Encounter Summary ---
:1940 Author Organization [facility] Address [address] [place] [address] Care Team Providers Name Role Phone Raquel Martin PA-C Primary Care Provider [phone] Reason for Visit Reason Onset Date Comments Advice Only 01/15/2018 Encounter Details Date Type Department Care Team Description 01/15/2018 Telephone [facility] Debby Polo RN Advice Only Neurosurgery - [place] [address] [place] [address] Social History Tobacco Use Types Packs/Day Years [...] Telephone Encounter - Debby Polo RN - 01/15/2018 1104 EDT The patient called to be sure of the timeframe for coloring her hair. Confirmed it is best to wait three months from surgery. documented in this encounter Plan of Treatment Not on filedocumented as of this encounter Visit Diagnoses Not on filedocumented in this encounter Care Teams Golf Course Mechanic Relationship Specialty Start Date End Date Raquel Martin PA-C PCP - General 08/28/[address] [place] [phone] documented as of this encounter
--- OUTSIDE RECORDS SUMMARY | 2021-11-18 18:25 | XMS_ITS | Encounter Summary ---
:1940 Author Organization [facility] Address [address] [place] [address] Care Team Providers Name Role Phone Raquel Martin PA-C Primary Care Provider [phone] Reason for Visit Reason Comments Post-OP Follow Up aneurysm, CT today Encounter Details Date Type Department Care Team Description 01/01/2018 Post-op Visit [facility] Naef, Carmen Cerebra l aneurysm, nonruptured (Primary Dx); Neurosurgery - Paddy Eagle PA-C SDH (subdural hematoma) ([facility]) [place] [address] [place] [address] [facility] [address] [place] [address] (Wo rk) Social History Tobacco Use Types Packs/Day Years Used Date Former Smoker Quit: 08/29/19 07 Smokeless Tobacco: Never Used Alcohol Use Standard Drinks/Week Comments No 0 (1 standard drink = 0.6 oz pure alcoho l) Sex Assigned at Date Recorded Not on file documented as of this encounter Last Filed Vital Signs Vital Sign Reading Time Taken Comments Blood Pressure 132/84 01/01/2018 1339 EDT Pulse 84 01/01/2018 1339 EDT Temperature - - Respiratory Rate 12 01/01/2018 1339 EDT Oxygen Saturation - - Inhaled Oxygen [...] aft trtmt for co nd oth than malig [id number][ICD-10-CM] S06.5X9A Traumatic subdural hemorrhage w ith loss of consciousness of unspecified duration, initial encounter-S06.5X9A[ICD -10-CM] documented in this encounter Discharge Disposition Disposition Code Departure Means Destination Auto Discharge documented in this encounter Progress Notes Carmen Rodriguez PA - 01/01/2018 1400 EDT Neurosurgery Postoperative Follow Up Patient Active Problem List Diagnosis Date Noted ??? SDH (subdural hematoma) ([facility]) 12/18/2017 Priority: Medium ??? 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 ?? 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 The patient was last seen on 12/18/2017 and at that time was doing well. A CT scan revealed a new mixed density subdural hematoma and an area of high density in the right superior frontal region. It was recommended that she stop her aspirin and undergo a repeat CTV in 2 weeks. Today the patient presents in follow-up. She has been doing well and denies any headaches. Her incision has been healing well and she denies any complaints. IMAGING STUDIES: A CT head venogram obtained today reveals postsurgical changes with some improvement in the small bilateral epidural fluid collection subjacent to the craniotomy flap. There is no evidence of a venous sinus thrombosis. These images have been personally reviewed by myself and Dr. Henao and demonstrated to the patient with explanation. Current Outpatient Prescriptions: acetaminophen (TYLENOL) 325 mg tablet Take 2 Tabs by mouth every 4 hours as needed for Pain. (Patient taking differently: Take 650 mg by mouth as needed for Pain. ) ALBUTEROL INHL Inhale as directed as needed. lisinopril (PRINIVIL, ZESTRIL) 2.5 mg tablet Take 2.5 mg by mouth daily. Multivitamins with Minerals tablet tablet Take 1 Tab by mouth daily. NIFEdipine XL (PROCARDIA-XL) 30 mg tablet Take 30 mg by mouth daily. tiotropium (SPIRIVA WITH HANDIHALER) 18 mcg inhalation capsule Inhale 18 mcg as directed daily. O/ BP 132/84 Pulse 84 Resp 12 Alert and oriented. She is accompanied by her sister In no significant distress Movement is fluid Face symmetric Scalp incision is well healed, nontender Gait is nonantalgic A/ 1. Cerebral aneurysm, nonruptured 2. SDH (subdural hematoma) (HCC-CMS) Rehan Gann is seen today in neurosurgical follow-up, 2 months status post an aneurysm clipping. The patient is doing well and she denies any headaches. Her imaging reveals improvement in the fluid collection adjacent to the craniotomy. Dr. Henao had the opportunity to see the patient as well today and is pleased with her progress. He is not recommending any further imaging studies and she can follow up as needed. All questions were answered and the patient is in agreement with the plan. P/ Neurosurgery followup: GALILEO Carl thank you for the opportunity to participate in Rehan Gann's care. Please feel free to contact our office with any questions you may have. Sincerely, Carmen Rodriguez, PA documented in this encounter Plan of Treatment Not on filedocumented as of this encounter Visit Diagnoses Diagnosis Cerebral aneurysm, nonruptured - Primary SDH (subdural hematoma) (HCC-CMS) (HCC) Subdural hemorrhage documented in this encounter Discontinued Medications Medication Sig Discontinue Reason Start Date End Date aspirin 325 mg EC tablet Take 1 Tab by mouth 8 01/01/2018 daily. documented as of this encounter Care Teams Shop Tailor Relationship Specialty Start Date End Date Raquel Martin PA-C PCP - General 08/28/17 [address] [place] [address] documented as of this encounter
--- OUTSIDE RECORDS SUMMARY | 2021-11-18 18:25 | XMS_ITS | Encounter Summary ---
:1940 Author Organization [facility] Address [address] [place] [address] Care Team Providers Name Role Phone Raquel Martin PA-C Primary Care Provider [phone] Reason for Visit Reason Onset Date Comments Appointment Related 10/09/2017 Encounter Details Date Type Department Care Team Description 10/09/2017 Telephone [facility] Dennis Henao Ap pointment Related Neurosurgery - [address] [address] [address], [place] [phone] (Wo rk) Social History Tobacco Use Types [...] Notes Telephone Encounter - Iza Pimentel - 10/09/2017 0941 EDT Confirmed for patient with the following appointment details: Date:10/10/2017 Arrival time:6:30 FOR 7AM ANGIO Appt time:Come right after scan Provider:Dr. Henao Location:3rd floor registration then EP5 Advised patient to contact our office with any questions. The phone number and directions to the clinic were provided. documented in this encounter Plan of Treatment Not on filedocumented as of this encounter Visit Diagnoses Not on filedocumented in this encounter Care Teams Pain Management Nurse Relationship Specialty Start Date End Date Raquel Martin PA-C PCP - General 08/28/[address] [place] [phone] documented as of this encounter
--- OUTSIDE RECORDS SUMMARY | 2021-11-18 18:25 | XMS_ITS | Encounter Summary ---
:1940 Author Organization [facility] Address [address] [place] [address] Care Team Providers Name Role Phone Unknown, Provider Primary Care Provider Encounter Details Date Type Department Care Team Description 02/09/2016 Results Only [facility]- Samara Milan MD [phone] [address] [address] Social History Tobacco Use Types Packs/Day Years Used Date Never Assessed Sex Assigned at Date Recorded Not on file documented as of this encounter Plan of Treatment Not on filedocumented as of this encounter Procedures Procedure Name Priority Date/Time Associated Diagnosis Comme nts HPV DNA DETECTION Routine 02/09/2016 13:20 Result s for this WITH GENOTYPING, EST procedure a re in PCR, THINPREP the results section. PAP TEST- RESULT Routine 02/09/2016 0:00 EST Resu lts for this ONLY procedure are i n the results section. documented in this encounter Results HPV DNA DETECTION WITH GENOTYPING, PCR, THINPREP (02/09/2016 13:20 EST) Specimen Source [employer] HPV type 16, PCR Test not indicated, [facility] credit issued. LABORATORY SERVICES HPV type 18, PCR Test not indicated, [facility] el? CENTE R credit issued. LABORATORY SERVICES HPV other types, Test not indicated, [facility] el? CENTE R PCR credit issued. LABORATORY SERVICES Specimen Other Performing Organization Address City/State/ZIP Code Phon e Number [facility] [address] [place] [address] SERVICES PAP TEST- RESULT ONLY (02/09/2016 0:00 EST) Pathology Report: CYTOPATHOLOGY REPORT [facility] Reports generated via electronic interface contain audelia ginal data; SERVICES however they are lacking the format of the original re port. Caution should be taken when reading/interpreting unfo rmatted reports. Name: ? REHAN FRITZ ? Accession #: ? [id number] ? : ? 1940 (Age: 75 ) ??F ?Collect Da te: ? 02/09/2016 ? Location: ? [facility] ? Receive Date: ? 016 ? Provider: SAMARA BLANCO MD Copy to: CLAY GAMA PA-C ? Final Report SPECIMEN ADEQUACY ? Satisfactory for Evaluation - transformation zone component present GENERAL CATEGORIZATION ? Negative for Intraepithelial Lesion or Malignan cy ?? Menstrual/ Status: ??Post Menopausal Previous Gynecologic Pathology: HPV: + Specimen/Source: ??Pap Test, Cervix/Endocervix, ThinPr ep Imaging System with manual evaluation Document reviewed and electronically signed by: ? Boyd Boswell, HERNANDEZ(ASCP) ? Report ??Date: 02/16/2016 12:57 HPV with Pap Test ? Date Ordered: ? 02/16/2016 ? Status: ?? Signed Out ?Date Complete: ? 02/21/2016 ? By: ??S ystem Interface ? Date Reported: ? 02/21/2016 ? Interpretation RESULT: Positive for high or intermediate risk HPV. E6 OR E7 mRNA from one or more types of HPV types 16,1 8,31, 33,35,39,45,51,52,56,58,59,66, and 68 is detected by information technology audit manager mediated amplification. High and intermediate risk HPV types are associated wi th most squamous intraepithelial lesions and cervical can cers. Comments Document reviewed and electronically signed by: ? System Interface ? Report date: 02/21/2016 By the signature above, the attending physician certif ies that he/she has personally conducted a gross and/or microscopic examin ation of the described specimens and rendered or confirmed the above diagnosi s. End of Report Specimen Performing Organization Address City/State/ZIP Code Phon e Number [facility] [address] [place] [address] SERVICES documented in this encounter Visit Diagnoses Not on filedocumented in this encounter Care Teams Litigation Services Manager Relationship Specialty Start Date End Date Unknown, Provider, PCP - General 06/30/11 08/27/17 documented as of this encounter
--- OUTSIDE RECORDS SUMMARY | 2021-11-18 18:25 | XMS_ITS | Encounter Summary ---
:1940 Author Organization [facility] Address [address] [place] [address] Care Team Providers Name Role Phone Unknown, Provider Primary Care Provider Encounter Details Date Type Department Care Team Description 12/16/2013 Results Only [facility] Samara Rubin MD Laboratory Services - [address] [place] [address] [place] [address] Social History Tobacco Use Types Packs/Day Years Used Date Never Assessed Sex Assigned at Date Recorded Not on file documented as of this encounter Plan of Treatment Not on filedocumented as of this encounter Procedures Procedure Name Priority Date/Time Associated Diagnosis Comme nts PAP TEST- RESULT Routine 12/16/2013 0:00 EDT Resu lts for this ONLY procedure are i n the results section. documented in this encounter Results PAP TEST- RESULT ONLY (12/16/2013 0:00 EDT) Pathology Report: CYTOPATHOLOGY REPORT [facility] Reports generated via electronic interface contain audelia ginal data; however they are lacking the format of the original re port. Caution should be taken when reading/interpreting unfo rmatted reports. Name: ? REHAN FRITZ ? Accession #: ? [id number] ? : ? 1940 (Age: 73) ??F ?Collect Da te: ? 12/16/2013 ? Location: ? [facility] ? Receive Date: ? 014 ? Provider: SAMARA RUBIN MD Copy to: CLAY GURROLA ? Final Report SPECIMEN ADEQUACY ? Satisfactory for Evaluation - assessment of transformation zone component not appl icable ( e.g. atrophy, vaginal sample, hysterectomy) GENERAL CATEGORIZATION ? Negative for Intraepithelial Lesion or Malignan cy ?? Previous Gynecologic Pathology: SKYE II: H/O HPV: + Specimen/Source: ??Pap Test, Cervix/Endocervix, ThinPr ep Imaging System with manual evaluation Document reviewed and electronically signed by: ? Boyd Boswell, CT(ASCP) ? Report ??Date: 12/23/2013 13:46 HPV with Pap Test ? Date Ordered: ? 12/23/2013 ? Status: ?? Signed Out ?Date Complete: ? 12/25/2013 ? By: ??S ystem Interface ? Date Reported: ? 12/25/2013 ? Interpretation RESULT: Negative for HPV. No E6 or E7 mRNA is detected from HPV types 16,18,31,3 3,35, 39,45,51,52,56,58,59,66, and 68 by parking enforcement manager media ivis amplification. Comments Document reviewed and electronically signed by: ? System Interface ? Report date: 12/25/2013 By the signature above, the attending physician certif ies that he/she has personally conducted a gross and/or microscopic examin ation of the described specimens and rendered or confirmed the above diagnosi s. End of Report Specimen Performing Organization Address City/State/ZIP Code Phon e Number [facility] [address] [place] [phone] SERVICES [facility] [address] [place] [address] documented in this encounter Visit Diagnoses Not on filedocumented in this encounter Care Teams Drill Runner Relationship Specialty Start Date End Date Unknown, Provider, PCP - General 06/30/11 08/27/17 documented as of this encounter
--- OUTSIDE RECORDS SUMMARY | 2021-11-18 18:25 | XMS_ITS | Encounter Summary ---
:1940 Author Organization [facility] Address [address] [place] [address] Care Team Providers Name Role Phone Unavailable Primary Care Provider Unavailable Encounter Details Date Type Department Care Team Description 05/03/[address] [facility] Samara Rubin MD Laboratory Services - [address] [place] [address] [place] [address] Social History Tobacco Use Types Packs/Day Years Used Date Never Assessed Sex Assigned at Date Recorded Not on file documented as of this encounter Plan of Treatment Not on filedocumented as of this encounter Procedures Procedure Name Priority Date/Time Associated Diagnosis Comme [facility] CYTOPATHOLOGY Routine 05/03/2010 0:00 EST Results for this procedure are i n the results section . documented in this encounter Results CYTOPATHOLOGY (05/03/2010 0:00 EST) Pathology Report: CYTOPATHOLOGY REPORT ? [facility] ? [facility] Reports generated via [employer] interface contain original data; ? however they are lacking the format of the original report. ? Caution should be taken when reading/interpreting unformatted reports. ? Name: ? CATRINA REHAN ? Accession #: ? [id number] ? : ? 1940 (Age: 70) ??F ?Collect Date: ? 05/03/2010 ? Location: ? [facility] ? R eceive Date: ? 05/04/2010 ? Provider: SAMARAHARRY RUBIN MD ? Copy to: ? Final Report ? SPECIMEN ADEQUACY ? Satisfactory for Eval uation ? - assessment of transformati on zone component not applicable ( e.g. atrophy, ? vaginal sample, hysterectomy ) ? GENERAL CATEGORIZATION ? Negative for Intraepi thelial Lesion or Malignancy ? Previous Gynecologic Patholo gy: SKYE III: 05/98 ? JESUS: 06/03, 06/04, 12/04 & 0 6/07 ? HPV: + 06/04, 12/04, 01/05, 06/07 & 02/10 ? Specimen/Source: ??Pap Test, Cervix/Endocervix, ThinPrep Imaging System with ? manual evaluation ? Document reviewed and electr onically signed by: ? Shagufta Arriaza, SCT( ASCP) ? Report ??Date: 2010 11:56 ? HPV with Pap Test ? Date Ordered: ? 0 05/09/2010 ? Status: ?? Signed Out ?Date Complete: ? 05/11/2010 ? By: ??System Interface ? Date Reported: ? 05/11/2010 ? Interpretation ? RESULT: Positive for one or more of HPV types 16,18,31,33,35,39,45, ? 51,52,56,58,59, or 68. These high/intermediate risk HPV ? types are associated with dy splasia and some cervical ? cancers. ? Comments ? Document reviewed and electr onically signed by: ? System Interface ? Report date: 02/16/20 11 ? By the signature above, the attending physician certifies that he/she has ? personally conducted a gross and/or microscopic examination of the described ? specimens and rendered or co nfirmed the above diagnosis. ? End of Report ? Specimen Performing Organization Address City/State/ZIP Code Phon e Number [facility] [address] [place] [address] SERVICES [facility] [address] [place] [address] documented in this encounter Visit Diagnoses Not on filedocumented in this encounter
--- OUTSIDE RECORDS SUMMARY | 2021-11-18 18:25 | XMS_ITS | Encounter Summary ---
:1940 Author Organization [facility] Address [address] [place] [address] Care Team Providers Name Role Phone Unavailable Primary Care Provider Unavailable Encounter Details Date Type Department Care Team Description 06/22/2011 Results Only [facility] Samara Rubin MD Laboratory Services - [address] [place] [address] [place] [address] Social History Tobacco Use Types Packs/Day Years Used Date Never Assessed Sex Assigned at Date Recorded Not on file documented as of this encounter Plan of Treatment Not on filedocumented as of this encounter Procedures Procedure Name Priority Date/Time Associated Diagnosis Comme nts PAP TEST- RESULT Routine 06/22/2011 0:00 EDT Resu lts for this ONLY procedure are i n the results section. documented in this encounter Results PAP TEST- RESULT ONLY (06/22/2011 0:00 EDT) Pathology Report: CYTOPATHOLOGY REPORT [facility] Reports generated via electronic interface contain audelia ginal data; however they are lacking the format of the original re port. Caution should be taken when reading/interpreting unfo rmatted reports. Name: ? REHAN FRITZ ? Accession #: ? [id number] : ? 1940 (Age: 71) ??F ?Collect Date: ? 05/25 Location: ? [facility] ? Receive Date : ? 06/23/2011 Provider: ?SAMARA RUBIN MD Copy to: ?ARPAN BOWEN MD ? Specimen/Source: ? Pap Test, Cervix/Endocervix, ThinPrep Imaging System with manual evaluation Last Menstrual Period: ? Previous Gynecologic Pathology: ? SKYE III: JESUS: 08/26,. 08/27, 02/26, 08/30 HPV: + 08/27, 02/26, 03/30, 08/30, 05/05 Other: ? Additional clinical information: last pap no endo cx ? SPECIMEN ADEQUACY ? Satisfactory for Evaluation - transformation zone component present GENERAL CATEGORIZATION ? Epithelial Cell Abnormality INTERPRETATION ? Squamous Cell Abnormality - Atypical squamous c ells, undetermined significance (ASC-US). EDUCATIONAL NOTES/RECOMMENDATIONS ? FORMERLY [facility], [facility] recommends joni sutton the 2006 Consensus Guidelines for the Management of Women with Abnormal Cervical Cancer Screening Tests (JLGTD, 2007;11(4):201-222). ??Consensus guidelines are availa ble online at www.ASCCP.org. ? Document reviewed and electronically signed by: ? ANTONIO NINO MD ? Report Date: ??06/28/2011 15:55 End of Report Specimen Performing Organization Address City/State/ZIP Code Phon e Number [facility] [address] [place] [address] SERVICES [facility] [address] [place] [address] documented in this encounter Visit Diagnoses Not on filedocumented in this encounter
--- OUTSIDE RECORDS SUMMARY | 2021-11-18 18:25 | XMS_ITS | Encounter Summary ---
:1940 Author Organization [facility] Address [address] [place] [address] Care Team Providers Name Role Phone Raquel Martin PA-C Primary Care Provider [phone] Reason for Visit Reason Onset Date Comments Appointment Related 10/11/2017 Encounter Details Date Type Department Care Team Description 10/11/2017 Telephone [facility] Dennis Mcwilliams MD Appointment Related 111 [facility] [address] [phone] [facility] [address] [place] [address] (Wo rk) Social History Tobacco [...] Notes Telephone Encounter - Iza Haynes - 10/12/2017 1107 EDT LM for Rehan with the following appointment details: 10/18/17 - [facility] Appointment at 2:30pm with Dr. Dennis Henao Advised Rehan to contact our office if she has any questions or would like to reschedule. Telephone Encounter - Lucia Olvera - 10/12/2017 0913 EDT Patient calling back to schedule a follow-up appointment with Dr. Henao. elephone Encounter - Aruna Rivera - 10/11/2017 0830 EDT Reason for Call: Appointment Related Summary/Symptoms: Patient calling to schedule FUR with Dr. Henao Has a few other appointments next week so wants to get her appointment as soon as possible Please call Aruna Rivera 10/11/2017 8:30 documented in this encounter Plan of Treatment Not on filedocumented as of this encounter Visit Diagnoses Not on filedocumented in this encounter Care Teams Continuous Improvement Lead Relationship Specialty Start Date End Date Raquel Martin PA-C PCP - General 08/28/17 [address] [place] [address] documented as of this encounter
--- OUTSIDE RECORDS SUMMARY | 2021-11-18 18:25 | XMS_ITS | Encounter Summary ---
:1940 Author Organization Health system Address [address] [place] [address] Care Team Providers Name Role Phone Raquel Martin PA-C Primary Care Provider [phone] Reason for Visit Reason Onset Date Comments Appointment Related 10/01/2017 Appointment Related 10/01/2017 cerebral angiogram Encounter Details Date Type Department Care Team Description 10/01/2017 Telephone [facility] Dennis Henao Ap pointment Related; Neurosurgery - Main MD Appointment Related [address] (cerebral angiogram ) [address] [place] [address] [place], [address] [place] [address] (Wo rk) Social History Tobacco [...] this encounter Miscellaneous Notes Telephone Encounter - Kristine Arguello - 10/01/2017 3527 EDT Called and spoke with Rehan in regards to scheduling their cerebral angiogram requested by Dr. Henao. Ms. Gann will be coming in on Tuesday 10/10 @ 700AM, checking in at 645AM with a stake driver. They understand that they will need a stake driver, and that they should plan on being NPO six hours priorto this procedure. Ms. Gann can have clear liquids two hours prior to their check in time. They will take their morning medications with a small sip of water. Confirmed that they are not taking over the counter pain medication regularly and will not do so twodays prior to this procedure. Confirmed that they are NOT taking blood thinning medication. I put a letter in the mail with pre procedure confirmation as well as prep instructions. I will inform the ordering office of this scheduled date and time. Routed to L.D Ms. Gann verbalized understanding and agrees with Plan of Care. No cognitive barriers were identified during this conversation. She has our contact number to call with questions. Kristine Arguello elephone Encounter - Iza Haynes - 10/01/2017 1442 EDT Rehan called to schedule her angio with IR. Discussed that our office will follow up with IR and havethem contact her to schedule the procedure. documented in this encounter Plan of Treatment Not on filedocumented as of this encounter Visit Diagnoses Not on filedocumented in this encounter Care Teams Card Decorator Relationship Specialty Start Date End Date Raquel Martin PA-C PCP - General 08/28/17 [address] [place] [address] documented as of this encounter
--- OUTSIDE RECORDS SUMMARY | 2021-11-18 18:25 | XMS_ITS | Encounter Summary ---
:1940 Author Organization [facility] Address [address] [place] [address] Care Team Providers Name Role Phone Unknown, Provider Primary Care Provider Encounter Details Date Type Department Care Team Description 12/07/2011 Results Only [facility] Samara Rubin MD Laboratory Services - [address] [place] [address] [place] [address] Social History Tobacco Use Types Packs/Day Years Used Date Never Assessed Sex Assigned at Date Recorded Not on file documented as of this encounter Plan of Treatment Not on filedocumented as of this encounter Procedures Procedure Name Priority Date/Time Associated Diagnosis Comme nts PAP TEST- RESULT Routine 12/07/2011 0:00 EDT Resu lts for this ONLY procedure are i n the results section. documented in this encounter Results PAP TEST- RESULT ONLY (12/07/2011 0:00 EDT) Pathology Report: CYTOPATHOLOGY REPORT [facility] Reports generated via electronic interface contain audelia ginal data; however they are lacking the format of the original re port. Caution should be taken when reading/interpreting unfo rmatted reports. Name: ? REHAN FRITZ ? Accession #: ? [id number] : ? 1940 (Age: 71) ??F ?Collect Date: ? 11/24 Location: ? [facility] ? Receive Date : ? 12/08/2011 Provider: ?SAMARA RUBIN MD Copy to: ? Specimen/Source: ? Pap Test, Cervix/Endocervix, ThinPrep Imaging System with manual evaluation Last Menstrual Period: ? 1994 Previous Gynecologic Pathology: ? SKYE III: JESUS: , 08/27, 02/26, 08/30 ASC-US: 08/26, 08/27, 02/26, 06/04 HPV: + 08/27, 02/26, 03/30, 08/30, 05/05, 05/12/11 Treatment History: ? Colposcopy: LEEP: ? SPECIMEN ADEQUACY ? Satisfactory for Evaluation - transformation zone component present GENERAL CATEGORIZATION ? Negative for Intraepithelial Lesion or Malignan cy INTERPRETATION ? Fungal organisms pres ent morphologically consistent with Vanessa species. ? Document reviewed and electronically signed by: ? HERNANDEZ Sage(ASCP)(IAC) ? Report Date: ??12/19/2011 08:37 End of Report Specimen Performing Organization Address City/State/ZIP Code Phon e Number [facility] [address] [place] [address] SERVICES [facility] [address] [place] [address] documented in this encounter Visit Diagnoses Not on filedocumented in this encounter Care Teams Cartridge Maker Relationship Specialty Start Date End Date Unknown, Provider, PCP - General 06/30/11 08/27/17 documented as of this encounter
--- OUTSIDE RECORDS SUMMARY | 2021-11-18 18:25 | XMS_ITS | Encounter Summary ---
:1940 Author Organization [facility] Address [address] [place] [address] Care Team Providers Name Role Phone Raquel Martin PA-C Primary Care Provider [phone] Reason for Visit Reason Comments Post-OP Follow Up aneurysm, CT today Follow Up (Routine) - Authorization Not Required Specialty Diagnoses / Procedures Referred By Contact Refer red To Contact Neurosurgery Diagnoses Cerebral aneurysm, nonruptured Varsha Patrick, Yosef Shields PA-C PA-C [address] [place] [address], [address] [place] [id number] Referral ID Status Reason Start Expiration Visits Visits Date Date Requested Authorized [id number] Authorization Specialty 1 1 Not Required Services 8 Required Encounter Details Date Type Department Care Team Description 12/18/2017 Post-op Visit [facility] Carmen Rodriguez aneurysm, nonruptured (Primary Dx); Neurosurgery - [facility] ANGEL Eagle SDH (subdural hematoma) ([facility]) [place] [address] [place] [address] [place] [address] (Wo rk) Social History Tobacco Use Types Packs/Day Years Used Date Former Smoker Quit: 08/29/19 07 Smokeless Tobacco: Never Used Alcohol Use Standard Drinks/Week Comments No 0 (1 standard drink = 0.6 oz pure alcoho l) Sex Assigned at Date Recorded Not on file documented as of this encounter Last Filed Vital Signs Vital Sign Reading Time Taken Comments Blood Pressure 116/74 12/18/2017 1052 EDT Pulse 80 12/18/2017 1052 EDT Temperature 36.4 ??C (97.5 ??F) 12/18/2017 1052 EDT Respiratory Rate 16 12/18/2017 1052 EDT Oxygen Saturation - - Inhaled Oxygen [...] Diagnoses Diagnosis I67.1 Cerebral aneurysm, nonruptured-I67 .1[ICD-10-CM] I62.00 Nontraumatic subdural hemorrhage, unspecified-I62.00[ICD-10-CM] documented in this encounter Discharge Disposition Disposition Code Departure Means Destination Auto Discharge documented in this encounter Progress Notes Carmen Rodriguez PA - 12/18/2017 1100 EDT Neurosurgery Postoperative Follow Up Patient Active Problem List Diagnosis Date Noted ??? 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 ?? Rehan Gann presents to neurosurgery clinic today, now one month s/p a bifrontal craniotomy for clip ligation of a left pericallosal aneurysm. The patient underwent evaluation for a visual problem ofher left eye and was found to have an incidental aneurysm. A follow up CTA and a formal cerebral aneurysm revealed a 7 mm left pericallosal aneurysm. Surgical intervention in the form of clipping was recommended and she was brought to the OR on 11/12/17. She tolerated the procedure well, but became mildly confused post op and a repeat head CT revealed a new hyperdensity within the frontal lobe concerning for a thrombus and she was placed on ASA 325 mg daily. Her confusion cleared and she was discharged to subacute rehab on 11/16/17. Today, the patient presents for her first post op visit. She remained at rehab for a week and was then discharged home with home health PT. She denies any headaches, visual changes or confusion. She continues to take ASA 325 mg. Her incision has been healing well and she denies any drainage. She has not experienced any balance difficulty or extremity numbness or weakness. She denies any falls. IMAGING STUDIES: A head CT obtained today reveals a new mixed density SDH along the right convexity. There are postsurgical changes related to the aneurysm clipping and the area of high density in the right superior frontal focus is unchanged. These images were personally reviewed by myself and Dr Calloway and demonstrated to the patient with explanation. Current Outpatient Prescriptions: acetaminophen (TYLENOL) 325 mg tablet Take 2 Tabs by mouth every 4 hours as needed for Pain. (Patient taking differently: Take 650 mg by mouth as needed for Pain. ) ALBUTEROL INHL Inhale as directed as needed. aspirin 325 mg EC tablet Take 1 Tab by mouth daily. lisinopril (PRINIVIL, ZESTRIL) 2.5 mg tablet Take 2.5 mg by mouth daily. Multivitamins with Minerals tablet tablet Take 1 Tab by mouth daily. NIFEdipine XL (PROCARDIA-XL) 30 mg tablet Take 30 mg by mouth daily. tiotropium (SPIRIVA WITH HANDIHALER) 18 mcg inhalation capsule Inhale 18 mcg as directed daily. O/ BP 116/74 Pulse 80 Temp 36.4 ??C (97.5 ??F) (Oral) Resp 16 Alert and oriented. She is accompanied by her sister In no significant distress Movement is fluid Face symmetric, EOMI, tongue midline No pronator drift Incision is healing well UE strength is intact Gait is nonantalgic A/ 1. Cerebral aneurysm, nonruptured CT HEAD WO CONTRAST 2. 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 The patient is doing extremely well, however her head CT reveals a new mixed densitysubdural hematoma. This was discussed with Dr. Calloway (in Dr Durant absence) and it is recommended that she stop her aspirin and we repeat a head CT in 14 days. The patient is aware that if her symptoms change or progress and she develops a persistent headache, cognitive change, visual changes, or balance difficulties she should contact our office or proceed to the nearest emergency department. Stone plan to see her back in 2 weeks and a further plan will be made at that time. P/ Discontinue ASA Head CT in 2 weeks Neurosurgery followup: scheduled 2 weeks GALILEO Ortega thank you for the opportunity to participate [...] Sig Discontinue Reason Start Date End Date senna (SENOKOT) 8.6 mg Take 1 Tab by mouth 11/16/2017 12/18/2017 tablet 2 times daily. enoxaparin (LOVENOX) 40 Inject 40 mg into 11/16/2017 12/18/2017 mg/0.4 mL injection the skin at bedtime. docusate sodium (COLACE) Take 1 Cap by mouth 8 12/18/2017 100 mg capsule 2 times daily. documented as of this encounter Care Teams Director Of Market Intelligence Relationship Specialty Start Date End Date Raquel Martin PA-C PCP - General 08/28/17 [address] [place] [id number] documented as of this encounter
--- OUTSIDE RECORDS SUMMARY | 2021-11-18 18:26 | XMS_ITS | Encounter Summary ---
:1940 Author Organization [facility] Address [address] [place] [address] Care Team Providers Name Role Phone Unavailable Primary Care Provider Unavailable Encounter Details Date Type Department Care Team Description 02/07/2000 Results Only [facility] - Nimesh Castelan MD conversion [address] [place] [address] Social History Tobacco Use Types Packs/Day Years Used Date Never Assessed Sex Assigned at Date Recorded Not on file documented as of this encounter Plan of Treatment Not on filedocumented as of this encounter Procedures Procedure Name Priority Date/Time Associated Diagnosis Comme nts CYTOPATHOLOGY Routine 02/07/2000 0:00 EST Results for this procedure are i n the results section . documented in this encounter Results CYTOPATHOLOGY (02/07/2000 0:00 EST) Pathology Report: CYTOPATHOLOGY REPORT [facility] Reports generated via electronic interface contain audelia ginal data; however they are lacking the format of the original re port. Caution should be taken when reading/interpreting unfo rmatted reports. Name: ? REHAN FRITZ ? Accession #: ? [id number] : ? 1940 (Age: 59) ??F ?Collect Date: ? 01/24 Location: ? [facility] ? Receive Date : ? 02/09/2000 Provider: ?NIMESH LYLES MD Copy to: ? Specimen/Source: ?ThinPrep Pap Test, Cervix/ Endocervix Last Menstrual Period: ? Menstrual/ Status: ? Post Menopausal Previous Gynecologic Pathology: ? SKYE III: JESUS: Treatment History: ? Colposcopy: LEEP: Other: ? Additional clinical information: and WNL ? SPECIMEN ADEQUACY ? Satisfactory for evaluation but limited by scan t squamous epithelial component secondary to excessive blood. GENERAL CATEGORIZATION ? Within Normal Limits ? Document reviewed and electronically signed by: ? Isabel Long SCT(ASCP) ? Report Date: ??02/20/2000 08:20 End of Report Specimen Performing Organization Address City/State/ZIP Code Phon e Number [facility] [address] [place] [address] [facility] [address] [place] [address] documented in this encounter Visit Diagnoses Not on filedocumented in this encounter
--- OUTSIDE RECORDS SUMMARY | 2021-11-18 18:26 | XMS_ITS | Encounter Summary ---
:1940 Author Organization [facility] Address [address] [place] [address] Care Team Providers Name Role Phone Unavailable Primary Care Provider Unavailable Encounter Details Date Type Department Care Team Description 08/26/2002 Results Only [facility] - Nimesh Castelan MD conversion [address] [place] [address] Social History Tobacco Use Types Packs/Day Years Used Date Never Assessed Sex Assigned at Date Recorded Not on file documented as of this encounter Plan of Treatment Not on filedocumented as of this encounter Procedures Procedure Name Priority Date/Time Associated Diagnosis Comme nts CYTOPATHOLOGY Routine 08/26/2002 0:00 EDT Results for this procedure are i n the results section . documented in this encounter Results CYTOPATHOLOGY (08/26/2002 0:00 EDT) Pathology Report: CYTOPATHOLOGY REPORT [facility] Reports generated via electronic interface contain audelia ginal data; however they are lacking the format of the original re port. Caution should be taken when reading/interpreting unfo rmatted reports. Name: ? REHAN FRITZ ? Accession #: ? [id number] : ? 1940 (Age: 62) ??F ?Collect Date: ? 05/2002 Location: ? [facility] ? Receive Date : ? 08/28/2002 Provider: ?NIMESH LYLES MD Copy to: ? Specimen/Source: ?ThinPrep Pap Test, Cervix/ Endocervix Last Menstrual Period: ? Age 50 Previous Gynecologic Pathology: ? SKYE II: 1997 JESUS: 1997 Treatment History: ? LEEP: 1998, then wnl Other: ? Additional clinical information: marked cervical steno sis ? SPECIMEN ADEQUACY ? Satisfactory for Evaluation - transformation zone component present GENERAL CATEGORIZATION ? Epithelial Cell Abnormality INTERPRETATION ? Squamous Cell Abnormality - Atypical squamous c ells, undetermined significance. EDUCATIONAL NOTES/RECOMMENDATIONS ? [facility] recommends joni wing the 2001 Consensus Guidelines for the Management of Women with Cervical Cytological Abnormalities (JAM [employer],2002;287:2120-9). Management algorithms have b een distributed by [facility] and are available online at www.ASCCP.org. ? Document reviewed and electronically signed by: ? TERESA BETANCOURT MD ? Report Date: ??09/01/2002 13:59 End of Report Specimen Performing Organization Address City/State/ZIP Code Phon e Number [facility] [address] [place] [address] [facility] [address] [place] [address] documented in this encounter Visit Diagnoses Not on filedocumented in this encounter
--- OUTSIDE RECORDS SUMMARY | 2021-11-18 18:26 | XMS_ITS | Clinical Summary ---
:1940 Author Organization [facility] [place] [address] Care Team Providers Name Role Phone Unknown Primary Care Provider Unavailable Allergies Active Allergy Reactions Severity Noted Date Comments Codeine 02/26/2012 Erythromycin Base CIS - Naus ea/Vomiting Sulfa (Sulfonamide Antibiotics) Medications Medication Sig Dispensed Refills Start Date End Date Status tiotropium (SPIRIVA Inhale 18 mcg 0 Active WITH HANDIHALER) 18 mcg into the lungs inhalation capsule daily. cetirizine (ZYRTEC) 10 TAKE ONE TABLET 3 03/04/2018 Active mg Tablet BY MOUTH EVERY DAY lisinopril Take 2.5 mg by 0 Acti ve (PRINIVIL;ZESTRIL) 2.5 mouth Daily. mg Tablet multivitamin with Take 1 tablet by 0 Active minerals Tablet mouth Daily. NIFEdipine (PROCARDIA Take 30 mg by 0 Active XL) 30 mg Tablet mouth Daily. Extended Rel 24 hr Immunizations Name Administration Dates Next Due Influenza Vaccine, Whole 01/12/2006, 01/13/2005 Td, adult 03/26/1994 Social History Tobacco Use Types Packs/Day Years Used Date Never Smoker Smokeless Tobacco: Never Used Sex Assigned at Date Recorded Not on file Plan of Treatment Health Maintenance Due Date Last Done Comments Covid-19 Vaccine (#1) 1947 Hepatitis C Screening 1960 Tdap adult 1961 Zoster vaccine (1 of 2) 1992 Advance Directive 1997 Tetanus vaccine 03/26/2004 03/26/1994 Bone Density Scan 2007 Pneumoccocal Vaccine: 65+ (1 - PCV) 2007 Influenza (Flu) vaccine (1 of 1 - 11/24/2021 01/12/2006, Influenza standard series) Insurance Payer Benefit Plan / Subscriber ID Effective Dates Phone Addre ss Type Group MEDICARE MEDICARE PART [id number] 2009-Mickie [id number] [facility] [place] [address] [place] [id number] 2019-Meaghan [phone] [address] [place] [address] Guarantor Name Account Type Relation to Date of Phone Bill ing Patient Address Rehan Gann Agnieszka Personal/Family Self 1940 [address] (Home) [address] [place] [address] Care Teams Light Oil Operator Relationship Specialty Start Date End Date Unknown PCP - General 11/12/19 None
--- OUTSIDE RECORDS SUMMARY | 2021-11-18 18:26 | XMS_ITS | Encounter Summary ---
:1940 Author Organization [facility] [address] Care Team Providers Name Role Phone Raquel Martin Primary Care Provider Reason for Visit Reason Comments Skin Lesion Encounter Details Date Type Department Care Team Description 02/26/2012 Office Visit Dermatology Niko Mars, Seborrheic keratosis [address] [facility] (Primary Dx) [address] [place], [place] DERMATOLOGY [id number] [place] [address] [phone] (Wo rk) Social History Tobacco Use Types Packs/Day Years Used Date Never Smoker Sex Assigned at Date Recorded Not on file documented as of this encounter Progress Notes Niko Mars MD - 02/26/2012 11:02 AM EST Problem: Back lesion. Rehan follows up after last being seen by me in December 2007. She is now followed by Raquel Norwood and Dr. Smith at the [facility] and desires to have her mole checked again. She had been reassured in the past by myself and Dr. Cali that this was a seborrheic keratosis. She does not want to have it removed if there is nothing wrong with it. Physical examination reveals a waxy stuck-on appearing 1.5-cm seborrheic keratosis on the mid central back just underneath where her bra strap clasps attach. Assessment and Plan: Seborrheic keratosis, back. a. Patient reassured about benign lesion. b. No treatment necessary. c. Also reassured about being solar lentigos on distal hands, forearms, and nasal bridge. Return to clinic here p.r.n. copy: Ilan Elias M.D. documented in this encounter Miscellaneous Notes Miscellaneous - Provider, Scanning - 02/26/2012 10:43 AM EST documented in this encounter Plan of Treatment Not on filedocumented as of this encounter Visit Diagnoses Diagnosis Seborrheic keratosis - Primary Other seborrheic keratosis documented in this encounter Care Teams Ice Hockey Coach Relationship Specialty Start Date End Date Raquel Martin PA PCP - General 02/26/12 11/11/19 [address] [place] [address] documented as of this encounter
--- OUTSIDE RECORDS SUMMARY | 2021-11-18 18:26 | XMS_ITS | Encounter Summary ---
:1940 Author Organization [facility] Address [address] [place] [address] Care Team Providers Name Role Phone Unavailable Primary Care Provider Unavailable Encounter Details Date Type Department Care Team Description 04/02/2003 Results Only [facility] - Anthony Rubin MD [place] conversion [address] [place] [address] [place] [address] Social History Tobacco Use Types Packs/Day Years Used Date Never Assessed Sex Assigned at Date Recorded Not on file documented as of this encounter Plan of Treatment Not on filedocumented as of this encounter Procedures Procedure Name Priority Date/Time Associated Diagnosis Comme nts SURGICAL PATHOLOGY Routine 04/02/2003 0:00 EST Re sults for this procedure are i n the results section. documented in this encounter Results SURGICAL PATHOLOGY (04/02/2003 0:00 EST) Pathology Report: SURGICAL PATHOLOGY REPORT [facility] Reports generated via electronic interface contain audelia ginal data; LAB however they are lacking the format of the original re port. Caution should be taken when reading/interpreting unfo rmatted reports. Name: ? REHAN FRITZ ? Accession #: ? [id number] ? : ? 1940 (Age: 62) ??F ? Collect Date: ? 04/02/2003 ? Location: ? [facility] ? Receive Date: ? 004 ? Provider: LUDY RUBIN MD Copy to: RADHA MORALES MD ? Final Pathologic Diagnosis: ? Endometrium, curettage: 1. ?Strips of benign endocervical mucosa. 2. ?Fragments of benign squamous mucosa. 3. ?Endometrial tissue not identified. ?? See comment. Comment: No endometrial tissue is identified. ??(Dr. Lantigua)/[facility] Document reviewed and electronically signed by: ИРИНА LANTIGUA MD Report ??Date: 04/06/2003 16:19 By the signature above, the attending physician certif ies that he/she has personally conducted a gross and/or microscopic examin ation of the described specimens and rendered or confirmed the above diagnosi s. Specimen(s) Received: ? Endometrial curettings Clinical History: ? Postmenopausal bleeding & cervical stenosis; pr ior LEEP cone Gross Description: ? Received in formalin labeled Sanjuanita and endometrial curettings is a 1.2 x 0.8 x 0.2 cm aggregate of salinas, mucoid soft material. ??Entirely submitted in one cassette. ??(Gertrudis De Souza/cory End of Report Specimen Performing Organization Address City/State/ZIP Code Phon e Number [facility] [address] [place] [address] [facility] [address] [place] [address] documented in this encounter Visit Diagnoses Not on filedocumented in this encounter
--- OUTSIDE RECORDS SUMMARY | 2021-11-18 18:26 | XMS_ITS | Encounter Summary ---
:1940 Author Organization [facility] [place] [address] Care Team Providers Name Role Phone Raquel Martin Primary Care Provider Reason for Visit Reason Comments Follow-up Skin Check Encounter Details Date Type Department Care Team Description 04/18/2018 Office Visit Dermatology at [facility] Niko Mars MD Xerosis cutis; [address] [place] [address] [place] [address] [place] [address] [phone] (Wo rk) Social History Tobacco Use Types Packs/Day Years Used Date Never Smoker Smokeless Tobacco: Never Used Sex Assigned at Date Recorded Not on file documented as of this encounter Progress Notes Niko Mars MD - 04/18/2018 10:30 AM EST Problem: 1. Pruritus times 1-2 months, generalized 2. Followed by Dr. Zabrina Ambriz for PMR 3. Status post intracerebral aneurysm repair October 2017 Rehan follows up referred back to be seen by Raquel Martin. Apparently for the last 1-2 months shehas had significant pruritus of her arms her chest and back. There have been no change in her medications. She is status post an intra- cerebral aneurysm repair in October 2017 at [facility]. There was been no change in her medications which include lisinopril and nifedipine for hypertension. She had no rash following her October surgery and was seen on several occasions by Raquel John her PCP who prescribed 2 successive Medrol Dosepak for this, the last 1 completed April 14, and she was advised to usefragrance free Dove soap, a baby shampoo, frequent free detergent and fabric softeners or dryer sheets. She been using humidifier at home in her bedroom. She has been using as needed triamcinolone cream and once to twice daily applications of CeraVe. She thinks she is finally rounding the corner. She did have some nummular eczematous patches but these have cleared on her legs. The patient is seen in consultation today for Raquel GURROLA. Physical examination reveals a pleasant 77-year-old woman who has diffusely xerotic skin with mild patchy erythema remaining at prior sites of nummular eczematous dermatitis. She has no active dermatitis. She continues to have a waxy stuck on appearing seborrheic keratosis on her central back just underneath her bra strap present the same location when I last saw it in February 2012. Assessment plan: Recent pruritic dermatitis likely related to her wintertime xerotic skin. 1. Agree with the current treatment plan as initiated by her PCP 2. Continue the CeraVe cream but use twice a day in a generalized application pattern to prevent recurrence of dermatitis 3. Hold triamcinolone cream in reserve for actual nummular eczematous dermatitic sites. 4. No need today for further p.o. steroidal therapies CC: Raquel GURROLA documented in this encounter Plan of Treatment Not on filedocumented as of this encounter Visit Diagnoses Diagnosis Xerosis cutis Other specified disease of sebaceous gla nds Pruritus Unspecified pruritic disorder documented in this encounter Care Teams Ip/Mosaic Technician Relationship Specialty Start Date End Date Raquel Martin PA PCP - General 02/26/12 11/11/19 [address] [place] [address] documented as of this encounter
--- OUTSIDE RECORDS SUMMARY | 2021-11-18 18:26 | XMS_ITS | Encounter Summary ---
:1940 Author Organization [facility] Address [address] [place] [address] Care Team Providers Name Role Phone Unavailable Primary Care Provider Unavailable Encounter Details Date Type Department Care Team Description 09/09/2004 Results Only [facility] [place] [facility] - Anthony Rubin MD Maple conversion [address] [place] [address] [place] [address] Social History Tobacco Use Types Packs/Day Years Used Date Never Assessed Sex Assigned at Date Recorded Not on file documented as of this encounter Plan of Treatment Not on filedocumented as of this encounter Procedures Procedure Name Priority Date/Time Associated Diagnosis Comme nts CYTOPATHOLOGY Routine 09/09/2004 0:00 EDT Results for this procedure are i n the results section . documented in this encounter Results CYTOPATHOLOGY (09/09/2004 0:00 EDT) Pathology Report: CYTOPATHOLOGY REPORT [facility] Reports generated via electronic interface contain audelia ginal data; however they are lacking the format of the original re port. Caution should be taken when reading/interpreting unfo rmatted reports. Name: ? REHAN FRITZ ? Accession #: ? [id number] : ? 1940 (Age: 64) ??F ?Collect Date: ? 08/24 Location: ? [facility] ? Receive Date : ? 09/12/2004 Provider: ?LUDY RUBIN MD Copy to: ? Specimen/Source: ?ThinPrep Pap Test, Cervix/ Endocervix Last Menstrual Period: ? Menstrual/ Status: ? Post Menopausal Previous Gynecologic Pathology: ? SKYE III: JESUS: ASC-US: 08/26, 08/27, 02/26 HPV: positive 08/27, 02/26 Treatment History: ? Colposcopy: LEEP: Other: ? Additional clinical information: Endocervical curettag e 03/29 HPVA - HPV testing requested if ASC-US on the current ThinPrep Pap test. ? SPECIMEN ADEQUACY ? Satisfactory for Evaluation - transformation zone component present GENERAL CATEGORIZATION ? Negative for Intraepithelial Lesion or Malignan cy INTERPRETATION ? Reactive cellular willis nges associated with inflammation present (includes repair). ? Document reviewed and electronically signed by: ? ANTONIO NINO MD ? Report Date: ??09/16/2004 16:22 End of Report Specimen Performing Organization Address City/State/ZIP Code Phon e Number [facility] [address] [place] [address] SERVICES [facility] [address] [place] [address] documented in this encounter Visit Diagnoses Not on filedocumented in this encounter
--- OUTSIDE RECORDS SUMMARY | 2021-11-18 18:26 | XMS_ITS | Encounter Summary ---
:1940 Author Organization [facility] Address [address] [place] [address] Care Team Providers Name Role Phone Unavailable Primary Care Provider Unavailable Encounter Details Date Type Department Care Team Description 02/08/2001 Results Only [facility] - Nimesh Castelan MD conversion [address] [place] [address] Social History Tobacco Use Types Packs/Day Years Used Date Never Assessed Sex Assigned at Date Recorded Not on file documented as of this encounter Plan of Treatment Not on filedocumented as of this encounter Procedures Procedure Name Priority Date/Time Associated Diagnosis Comme nts CYTOPATHOLOGY Routine 02/08/2001 0:00 EST Results for this procedure are i n the results section . documented in this encounter Results CYTOPATHOLOGY (02/08/2001 0:00 EST) Pathology Report: CYTOPATHOLOGY REPORT [facility] Reports generated via electronic interface contain audelia ginal data; however they are lacking the format of the original re port. Caution should be taken when reading/interpreting unfo rmatted reports. Name: ? REHAN FRITZ ? Accession #: ? [id number] : ? 1940 (Age: 60) ??F ?Collect Date: ? 01/24 Location: ? [facility] ? Receive Date : ? 02/11/2001 Provider: ?NIMESH LYLES MD Copy to: ? Specimen/Source: ?ThinPrep Pap Test, Cervix/ Endocervix Last Menstrual Period: ? S/P Menopause. Previous Gynecologic Pathology: ? SKYE II: JESUS: , within normal limits Treatment History: ? Colposcopy: LEEP: ? SPECIMEN ADEQUACY ? Unsatisfactory for ev aluation, insufficient numbers of squamous epithelial cells (less than 10% of expected cellularity). GENERAL CATEGORIZATION ? Unsatisfactory Recommend repeat Pap test or further follow up, as cli nically indicated. ? Document reviewed and electronically signed by: ? Roz Rodriguez, ??SCT(ASCP) ? Report Date: ??02/18/2001 14:56 End of Report Specimen Performing Organization Address City/State/ZIP Code Phon e Number [facility] [address] [place] [address] [facility] [address] [place] [address] documented in this encounter Visit Diagnoses Not on filedocumented in this encounter
--- OUTSIDE RECORDS SUMMARY | 2021-11-18 18:26 | XMS_ITS | Encounter Summary ---
:1940 Author Organization [facility] Address [address] [place] [address] Care Team Providers Name Role Phone Unavailable Primary Care Provider Unavailable Encounter Details Date Type Department Care Team Description 03/11/2004 Results Only [facility] - Anthony Rubin MD Maple conversion [address] [place] [address] [place] [address] Social History Tobacco Use Types Packs/Day Years Used Date Never Assessed Sex Assigned at Date Recorded Not on file documented as of this encounter Plan of Treatment Not on filedocumented as of this encounter Procedures Procedure Name Priority Date/Time Associated Diagnosis Comme nts CYTOPATHOLOGY Routine 03/11/2004 0:00 EST Results for this procedure are i n the results section . documented in this encounter Results CYTOPATHOLOGY (03/11/2004 0:00 EST) Pathology Report: CYTOPATHOLOGY REPORT [facility] Reports generated via electronic interface contain audelia ginal data; however they are lacking the format of the original re port. Caution should be taken when reading/interpreting unfo rmatted reports. Name: ? REHAN FRITZ ? Accession #: ? [id number] : ? 1940 (Age: 63) ??F ?Collect Date: ? 02/23 Location: ? [facility] ? Receive Date : ? 03/14/2004 Provider: ?LUDY RUBIN MD Copy to: ? Specimen/Source: ?ThinPrep Pap Test, Cervix/ Endocervix Last Menstrual Period: ? Menstrual/ Status: ? Post Menopausal Hormonal/Contraceptive Status: ? Yes: Estrace Cream Previous Gynecologic Pathology: ? SKYE III: JESUS: ASC-US: 08/26,08/27 + HPV Treatment History: ? Colposcopy: LEEP: Other: ? Additional clinical information: ECC 03/29 ? SPECIMEN ADEQUACY ? Satisfactory for Evaluation - transformation zone component present GENERAL CATEGORIZATION ? Epithelial Cell Abnormality INTERPRETATION ? Squamous Cell Abnormality - Atypical squamous c ells, undetermined significance. EDUCATIONAL NOTES/RECOMMENDATIONS ? [facility] recommends joni wing the 2001 Consensus Guidelines for the Management of Women with Cervical Cytological Abnormalities (JENNY Cross,2002;287:2120-9). Management algorithms have b een distributed by [facility] and are available online at www.ASCCP.org. ? Document reviewed and electronically signed by: ? ANTONETTE BRYANT MD ? Report Date: ??03/22/2004 11:44 End of Report Specimen Performing Organization Address City/State/ZIP Code Phon e Number [facility] [address] [place] [address] SERVICES [facility] [address] [place] [address] documented in this encounter Visit Diagnoses Not on filedocumented in this encounter
== END 2021-11-18 18:23 | disposition home or self-care (01) ==
LOC: NCHCN 18:22
PROVIDERS: PCP Physician Assistant Medical; Visit Provider Physician Assistant Medical
DX: I50.9 Heart failure, unspecified (principal)
CPT/HCPCS: 80048

== ENCOUNTER 2021-11-25 14:33 | Outpatient (REF) | payer MEDICARE, MEDICAID, SELFPAY ==
[2021-11-25 20:14] LABS: Anion Gap 7.6 mmol/L (3-11); BUN 31 mg/dL (7-18); CO2 29.4 mmol/L (21.0-32.0); CREATININE 1.7 mg/dL (0.55-1.02); Calcium 9.7 mg/dL (8.5-10.1); Chloride 101 mmol/L (98-107); Estimated GFR 30.32 (mL/min/1.73m2); Glucose 122 mg/dL (74-106); Potassium 4.9 mmol/L (3.5-5.1); Sodium 138 mmol/L (136-145)
== END 2021-11-25 14:34 | disposition home or self-care (01) ==
LOC: NCHCN 14:33
PROVIDERS: PCP Physician Assistant Medical; Visit Provider Physician Assistant Medical
DX: I50.9 Heart failure, unspecified (principal)
CPT/HCPCS: 80048

== ENCOUNTER → 2021-11-29 10:44 | Outpatient (BNVA) | payer MEDICARE, MEDICAID, SELFPAY | PROVIDERS: PCP Physician Assistant Medical; Referring Provider Physician Assistant Medical; Visit Provider Internal Medicine Cardiovascular Disease | DX: I48.20 Chronic atrial fibrillation, unspecified (principal); I50.30 Unspecified diastolic (congestive) heart failure; J44.9 Chronic obstructive pulmonary disease, unspecified | CPT/HCPCS: 99214; 99213 ==

== ENCOUNTER 2021-12-07 13:40 | Outpatient (REF) | payer MEDICARE, MEDICAID, SELFPAY ==
--- OUTSIDE RECORDS SUMMARY | 2021-12-07 13:42 | XMS_ITS | Encounter Summary ---
:1940 Author Organization [facility] Address [address] [place] [address] Care Team Providers Name Role Phone Raquel Martin PA-C Primary Care Provider [phone] Reason for Visit Reason Onset Date Comments Appointment Related 06/18/2019 Encounter Details Date Type Department Care Team Description 06/18/2019 Telephone [facility] Sam Ryan, Doug intment Related Ophthalmology - Berl in [address] [place] [phone] (Wo rk) Social History Tobacco Use Types [...] Telephone Encounter - Jasmyne Rubio COA - 06/18/2019 1129 EDT Called patient about moving her appointment with Dr. Ryan due to COVID-19 virus. She said her eyes have been tearing with crystals. Suggested she try some OTC lubrication-artifical tears & could try using warm compresses for 3-5 mins morning/night. documented in this encounter Plan of Treatment Not on filedocumented as of this encounter Visit Diagnoses Not on filedocumented in this encounter Care Teams Frozen Food Selector Relationship Specialty Start Date End Date Raquel Martin PA-C PCP - General 08/28/17 [address] [place] [address] documented as of this encounter
--- OUTSIDE RECORDS SUMMARY | 2021-12-07 13:42 | XMS_ITS | Encounter Summary ---
:1940 Author Organization [facility] Address [address] [place] [address] Care Team Providers Name Role Phone Raquel Martin PA-C Primary Care Provider [phone] Encounter Details Date Type Department Care Team Description 12/30/2019 Lab Requisition [facility] Britt Kelsey for other Pathology & MD John general examination Laboratory Medicine [address] [place], [place] [address] [facility] [id number] [place] [id number] Social History Tobacco Use Types Packs/Day Years [...] 8:18 EDT) Final Diagnosis A. GALLBLADDER, CHOLECYSTECTOMY: [facility] EDICAL - Chronic cholecystitis and cholelithiasis. CENTER - Deeper sections x3 examined. LABORATORY - SEE COMMENT. SERVICES Diagnosis Comment Medicare Compliance Auditor slides of jeison s case were reviewed at the gastrointestinal/liver intradepartmental consultation conference. (RW) [facility] Attestation There was significant [facility] MEDICAL Electr onically resident/fellow CENTER signed by Ab navin Santos involvement in the LABORATORY Agnieszka Summers on diagnostic evaluation SERVICES 2019 at 1634 of this case. By the signature below, the attending physician certifies that they have personally conducted a gross and/or microscopic examination of the described specimens and rendered or confirmed the above diagnosis. Clinical History Biliary colic [facility] Gross Description A. [facility] MEDICAL Received in formalin jaz d with proper patient identification (initials G, J) and gallbladder [id number] is an intact gallbladder with an attached [...] than 0.1 cm in greatest dimension). Three client relations representative section s and the en face cystic duct margin and the possible cystic duct lymph node are submitted in A1. Three additional sections of the gallbladder are submi tted in A2. Pedro Knox MD 12/31/2019 15:49 Resident/Fellow: Pedro Knox MD [facility] Performing Lab [facility] Scanned Images [facility] Specimen Tissue - Entire gallbladder (body struct ure) Performing Organization Address City/State/ZIP Code Phon e Number [facility] [address] [place] [address] SERVICES documented in this encounter Visit Diagnoses Diagnosis Encounter for other general examination documented in this encounter Care Teams Retail Reset Merchandiser Relationship Specialty Start Date End Date Raquel Martin PA-C PCP - General 08/28/17 [address] [place] [address] documented as of this encounter
--- OUTSIDE RECORDS SUMMARY | 2021-12-07 13:42 | XMS_ITS | Encounter Summary ---
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 [address] Phone: [facility] [address] [place] [address] Referral ID Status Reason Start Date Expiration Date Visits V isits Requested Authorized [id number] Order 12/18/2018 1 1 Cancelled Encounter Details Date Type Department Care Team Description 01/02/2019 [facility] Unknown, Prov MD alba Retinal disease; Encounter Neurophysiology - [facility] Bravo Fajardo MD PhD [address] [facility]. [address] [place] [address] Visual field defects; Fisher Jaye, Lotus Neil MD Cerebral aneurysm, nonruptured; [address] [facility] Scotoma involving [place] [address] Social History Tobacco Use Types Packs/Day Years [...] Procedure Notes Bravo Fajardo MD, - 01/02/2019 1016 EDT Electroretinogram Report Referring Physician: Sohail Isidoro [...] 01/07/2019 documented in this encounter Care Teams Foundation Stage Teacher Relationship Specialty Start Date End Date Raquel Martin PA-C PCP - General 08/28/[address] [place] [phone] documented as of this encounter
--- OUTSIDE RECORDS SUMMARY | 2021-12-07 13:42 | XMS_ITS | Encounter Summary ---
:[address] [facility] Address [address] [place] [address] Care Team Providers Name Role Phone Raquel Martin PA-C Primary Care Provider [phone] Encounter Details Date Type Department Care Team Description 12/20/2018 Orders Only [facility] Sohail Chaudhry thy (Primary Ophthalmology - Paddy Vasquez MD Dx) [place] [address] [place] [address] Boss, [address] [place] [address] (Wo rk) Social History Tobacco [...] disorder documented in this encounter Care Teams Apparel Fashion Designer Relationship Specialty Start Date End Date Raquel Martin PA-C PCP - General 08/28/17 [address] [place] [address] documented as of this encounter
--- OUTSIDE RECORDS SUMMARY | 2021-12-07 13:42 | XMS_ITS | Encounter Summary ---
:1940 Author Organization [facility] Address [address] [place] [address] Care Team Providers Name Role Phone Raquel Martin PA-C Primary Care Provider [phone] Reason for Visit Reason Onset Date Comments Appointment Related 01/23/2019 Encounter Details Date Type Department Care Team Description 01/23/2019 Telephone [facility] Sohail Chaudhry ent Related Ophthalmology - Paddy Vasquez MD [address] [phone] [facility] [address] [place] [address] (Wo rk) Social History Tobacco [...] if she could see dr Obrien in [place]? She cannot see Dr Trejo will not take on any new patients. Unless she is surgical. She says that she just cannot make it to [place] anymore. She loves you, you are very wonderful to her. She would like to continue to see a retinia specialist. documented in this encounter Plan of Treatment Not on filedocumented as of this encounter Visit Diagnoses Not on filedocumented in this encounter Care Teams Elevated Guard Relationship Specialty Start Date End Date Raquel Martin PA-C PCP - General 08/28/17 [address] [place] [address] documented as of this encounter
--- OUTSIDE RECORDS SUMMARY | 2021-12-07 13:42 | XMS_ITS | Encounter Summary ---
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 Sohail Chaudhry MD Procedures OCT (OPHTHALMIC DIGITAL IMAGING, POSTERIOR SEGMENT) [address] [phone] Referral ID Status Reason Start Date Expiration Date Visits V isits Requested Authorized [id number] New Request 12/18/2018 1 1 (Routine) - New Request Specialty Diagnoses / Procedures Referred By Contact Refer red To Contact Diagnoses Visual field defect Aneurysm of anterior cerebral artery Macular degeneration of both eyes, unspecified type 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 Sohail Chaudhry MD Procedures VISUAL FIELD EXAM, EXTENDED [address] [phone] Referral ID Status Reason Start Date Expiration Date Visits V isits Requested Authorized [id number] New Request 12/18/2018 1 1 Reason for [...] degeneration Raquel Martin, Sohail Chaudhry PA-C MD [address] [place] [phone] [place] [address] Pavilion, Level [address] [place] [address] Phone: Fax: Referral ID Status Reason Start Expiration Visits Visits Date Date Requested Authorized [id number] Authorization Not 1 1 Required Encounter Details Date Type Department Care Team Description 12/18/2018 Office Visit [facility] Sohail Chaudhry, Ophthalmology - [address] [address] [address], [place] [address] (Wo rk) Social History Tobacco [...] been dictated. I spent 30 minutes in [id number] conversation and discussion, with more than 50% of that time used for counseling and coordination of care. documented in this encounter Consult Notes Sohail Chaudhry MD - 12/18/2018 0000 EDT [facility] NEURO-OPHTHALMOLOGY CONSULTATION - 12/18/2018 Ms Gann [...] a clear simultagnosia and the patient's visual flower do not suggest a pattern typically seen [...] or concerns. Sohail Chaudhry MD Diplomate, the [place] [employer] Neurology desktop operator Department of Ophthalmology NEURO-OPHTHALMOLOGY cc: Raquel Martin PA-C, [address] [phone] Alison Barreto OD, [address] [place] [address], [facility] 6, [place] [address] documented in this encounter Plan of Treatment [...] EDT) ANCA Interpretation Negative Negative [facility] Comment: LABORATORY DAVID Positive, suggest follow-up DAVID testing if c linically indicated. Cannot SERVICES rule out Atypical ANCA (A-ANCA). No titer performed, ANCA screen is negative. Results were obtained with the INOVA NOVA Lite ANCA ki t by indirect immunofluorescence. Specimen Blood specimen (specimen) - Blood Performing Organization Address City/State/ZIP Code Phon e Number [facility] LABORATORY [address] [place] [address] SERVICES (ABNORMAL) COMPLETE BLOOD COUNT AND DIFFERENTIAL (12/18/2018 12:03 EDT) Pathologist Sig nature WBC 4.64 4.0 - 12.4 [facility] K/[facility] LABORATORY SERVICES RBC 4.67 3.86 - 5.04 [facility] LABORATORY SERVICES Hemoglobin 14.2 11.6 - 15.2 [facility] gm/dl LABORATORY SERVICES HCT 43.9 34.9 - 44.4 % [facility] LABORATORY SERVICES MCV 94 81 - 98 fl [facility] LABORATORY SERVICES MCH 30.4 26.7 - 33.3 pg [facility] LABORATORY SERVICES MCHC 32.3 32.1 - 35.9 [facility] gm/dl LABORATORY SERVICES RDW-CV 13.0 <14.7 % [facility] LABORATORY SERVICES RDW-SD 44.4 <50.4 fl [facility] LABORATORY SERVICES PLT 226 141 - 377 K/[facility] LABORATORY SERVICES MPV 9.3 (L) 9.5 - 12.7 fl [facility] LABORATORY SERVICES Neutrophils 61.9 % [facility] LABORATORY SERVICES Lymphocytes 26.7 % [facility] LABORATORY SERVICES Monocytes 9.3 % [facility] LABORATORY SERVICES Eosinophils 1.3 % [facility] LABORATORY SERVICES Basophils 0.6 % [facility] LABORATORY SERVICES Immature Grans 0.2 % [facility] LABORATORY SERVICES ABS Neutrophils 2.87 2.20 - 8.85 [facility] K/[facility] LABORATORY SERVICES ABS Lymphs 1.24 1.09 - 3.30 [facility] LABORATORY SERVICES ABS Monocytes 0.43 0.1 - 0.8 /[facility] LABORATORY SERVICES ABS Eosinophils 0.06 0.03 - 0.61 [facility] LABORATORY SERVICES ABS Basophils 0.03 0.01 - 0.11 [facility] LABORATORY SERVICES ABS Immature Grans 0.01 0 - 0.06 [facility] LABORATORY SERVICES Type of Diff: Automated [facility] LABORATORY SERVICES Specimen Blood specimen (specimen) - Blood Performing Organization Address City/State/ZIP Code Phon e Number [facility] LABORATORY [address] [place] [address] SERVICES VITAMIN A, S (12/18/2018 12:03 EDT) Vitamin A 59.7 32.5 - 78.0 [facility] Comment: mcg/dL LABORATORY (Note) SERVICES . ADDITIONAL INFORMATION ------ This test was developed and its performance characteri stics determined by [facility] in a manner consistent with CLIA requirements. This test has not been cleared or approv ed by the U.S. Food and Drug Administration. Performed by: [facility] Labs: [facility] [address], [place] [address] Specimen Blood specimen (specimen) - Blood Performing Organization Address [facility] e Number [facility] LABORATORY [address] [place] [address] SERVICES VITAMIN E, SERUM (12/18/2018 12:03 EDT) Alpha- Tocopherol 13.5 5.5 - 17.0 [facility] (Vitamin E) Comment: mg/L MANY LABORATORY (Note) SERVICES . ADDITIONAL INFORMATION ------ This test was developed and its performance characteri stics determined by [facility] in a manner consistent with CLIA requirements. This test has not been cleared or approv ed by the U.S. Food and Drug Administration. Performed by: [facility] Labs: [facility] [address], [place] [address] Specimen Blood specimen (specimen) - Blood Performing Organization Address [facility] e Number [facility] LABORATORY [address] [place] [phone] SERVICES VITAMIN B12 (12/18/2018 12:03 EDT) Pathologist [facility] nature Vitamin B-12 229 211 - 911 pg/ml [facility] LABORATORY SERVICES Specimen Blood specimen (specimen) - Blood Performing Organization Address [facility] e [facility] LABORATORY [address] [place] [address] SERVICES (ABNORMAL) METHYLMALONIC ACID (12/18/2018 12:03 EDT) Methylmalonic Acid 0.69 (H) <=0.40 [facility] Comment: nmol/mL CENTER (Note) LABORATORY In this sample, the concentration of methylmalonic aci d SERVICES (MMA) was elevated. This finding is likely related to vitamin B12 deficiency. . ADDITIONAL INFORMATION ------ This test was developed and its performance characteri stics determined by [facility] in a manner consistent with CLIA requirements. This test has not been cleared or approv ed by the U.S. Food and Drug Administration. Performed or Referred by: [facility] Labs [facility], [address] [place] [address] Specimen Blood specimen (specimen) - Blood Performing Organization Address City/State/ZIP Code Phon e Number [facility] LABORATORY [address] [place] [address] SERVICES documented in this encounter Visit Diagnoses [...] Periphery Normal Normal Wearing Rx Sphere Cylinder [place] Add Right eye -1.25 +1.25 180 +2.50 Left eye +0.25 +1.00 178 +2.50 Type: PAL Manifest Refraction (Auto) Sphere Cylinder [place] Dist [place] Right eye -1.50 +1.50 005 20/25 Left eye +0.75 +1.25 180 NI AR 1 with letter AR 2with numbers Care Teams Graduate Student Relationship Specialty Start Date End Date Raquel Martin PA-C PCP - General 08/28/17 [address] [place] [phone] documented as of this encounter
--- OUTSIDE RECORDS SUMMARY | 2021-12-07 13:42 | XMS_ITS | Encounter Summary ---
:1940 Author Organization [facility] Address [address] [place] [address] Care Team Providers Name Role Phone Raquel Martin PA-C Primary Care Provider [phone] Reason for Referral Radiology Services (Routine) - Closed Specialty Diagnoses / Procedures Referred By Contact Refer red To Contact Diagnoses Abnormal head CT Carmen Rodriguez PA-C Procedures CT HEAD VENOGRAM W CONTRAST [address] [place] [phone] Referral ID Status Reason Start Date Expiration Date Visits Requ ested Visits Authorized [id number] Closed 12/26/2017 1 1 Encounter Details Date Type Department Care Team Description 12/26/2017 Orders Only [facility] Carmen Rodriguez A bnormal head CT Neurosurgery - Paddy ORTIZ (Primary Dx) [place] [address] [place] [address] [place] [address] (Wo rk) Social History Tobacco [...] Anatomical Region Laterality Modality Other Specimen Narrative [facility] - 01/01/2018 14:[address] HEAD VENOGRAM W CONTRAST ??01/01/2018 12:58 PM CLINICAL HISTORY: R93.0-Abnormal finding s on diagnostic imaging of skull and head, not elsewhere classified -ICD-10; High density in the right superior frontal focus I67.1-Cereb ral aneurysm, [id number] I62.00-Nontraumatic s ubdural hemorrhage, unspecified (HCC-CMS)-ICD-10; SDH, [...] right superior frontal focus I67.1-Cereb ral aneurysm, lhbxeuqwjqa-ZHL-14 I62.00-Nontraumatic s ubdural hemorrhage, unspecified (HCC-CMS)-ICD-10; SDH, [...] Organization Address City/State/ZIP Code Phon e Number [facility] [place] documented in this encounter Visit Diagnoses Diagnosis Abnormal head CT - Primary Nonspecific (abnormal) findings on radio logical and other examination of skull and head documented in this encounter Care Teams Technical Service Representative Relationship Specialty Start Date End Date Raquel Martin PA-C PCP - General 08/28/17 [address] [place] [address] documented as of this encounter
--- OUTSIDE RECORDS SUMMARY | 2021-12-07 13:42 | XMS_ITS | Encounter Summary ---
:1940 Author Organization [facility] Address [address] [place] [address] Care Team Providers Name Role Phone Raquel Martin PA-C Primary Care Provider Reason for Visit Reason Comments Eye Problem Encounter Details Date Type Department Care Team Description 01/22/[address] [facility] Sohail Chaudhry, Ophthalmology - [facility] [phone] [place] [address], [facility] [place] [phone] (Wo rk) Social History Tobacco Use Types [...] been dictated. I spent 30 minutes in vprr-eh-ruhc conversation and discussion, with more than 50% of that time used for counseling and coordination of care. Sohail Beltre MD - 01/22/2019 0000 EDT [facility] NEURO-OPHTHALMOLOGY PROGRESS / FOLLOWUP NOTE - 01/22/2019 [...] or concerns. Sohail Chaudhry MD Diplomate, the [place] [employer] & Neurology machinist class b Department of Ophthalmology NEURO-OPHTHALMOLOGY documented in this [...] heme, HE or SSF heme Care Teams Edge Finisher Relationship Specialty Start Date End Date Raquel Martin PA-C PCP - General 08/28/17 [address] [place] [address] documented as of this encounter
--- OUTSIDE RECORDS SUMMARY | 2021-12-07 13:42 | XMS_ITS | Encounter Summary ---
:1940 Author Organization [facility] Address [address] [place] [address] Care Team Providers Name Role Phone Raquel Martin PA-C Primary Care Provider [phone] Reason for Visit Reason Onset Date Comments Other 12/10/2018 Encounter Details Date Type Department Care Team Description 12/10/2018 Telephone [facility] Isidoro, Sohail Vasquez, Other Ophthalmology - [address], MD [address] [phone] [facility] Level [address] [place] [address] (Wo rk) Social History Tobacco [...] Marii Barreto's office just faxed to the [facility] information for Dr. Chaudhry to review and then callDr. Barreto back. documented in this encounter Plan of Treatment Not on filedocumented as of this encounter Visit Diagnoses Not on filedocumented in this encounter Care Teams Showplace Manager Relationship Specialty Start Date End Date Raquel Martin PA-C PCP - General 08/28/17 [address] [place] [address] documented as of this encounter
--- OUTSIDE RECORDS SUMMARY | 2021-12-07 13:42 | XMS_ITS | Encounter Summary ---
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 This finding is likely related to vitamin B12 deficiency. . ADDITIONAL INFORMATION ------ This test was developed and its performance characteri stics determined by [facility] in a manner consistent with CLIA requirements. This test has not been cleared or approv ed by the U.S. Food and Drug Administration. Performed or Referred by: [facility] Labs [facility], [address] [place] [address] Specimen Blood specimen (specimen) - Blood Performing Organization Address [facility] e Number [facility] LABORATORY [address] [place] [address] SERVICES VITAMIN B12 (12/18/2018 12:03 EDT) Pathologist Sig nature Vitamin B-12 229 211 - 911 pg/ml [facility] LABORATORY SERVICES Specimen Blood specimen (specimen) - Blood Performing Organization Address [facility] e Number [facility] LABORATORY [address] [place] [address] SERVICES VITAMIN E, SERUM (12/18/2018 12:03 EDT) Alpha- Tocopherol 13.5 5.5 - 17.0 [facility] (Vitamin E) Comment: mg/L [facility] (Note) SERVICES . ADDITIONAL INFORMATION ------ This test was developed and its performance characteri stics determined by [facility] in a manner consistent with CLIA requirements. This test has not been cleared or approv ed by the U.S. Food and Drug Administration. Performed by: [facility] Labs: [address], [place] [address] Specimen Blood specimen (specimen) - Blood Performing Organization Address [facility] e [facility] LABORATORY [address] [place] [address] SERVICES VITAMIN A, S (12/18/2018 12:03 EDT) Vitamin A 59.7 32.5 - 78.0 [facility] Comment: mcg/dL LABORATORY (Note) SERVICES . ADDITIONAL INFORMATION ------ This test was developed and its performance characteri stics determined by [facility] in a manner consistent with CLIA requirements. This test has not been cleared or approv ed by the U.S. Food and Drug Administration. Performed by: [facility] Labs: [address], [place] [address] Specimen Blood specimen (specimen) - Blood Performing Organization Address City/[facility]/ZIP Code Phon e Number [facility] LABORATORY [address] [place] [address] SERVICES (ABNORMAL) COMPLETE BLOOD COUNT AND DIFFERENTIAL (12/18/2018 12:03 EDT) Pathologist Sig nature WBC 4.64 4.0 - 12.4 [facility] K/[facility] LABORATORY SERVICES RBC 4.67 3.86 - 5.04 [facility] M/[facility] LABORATORY SERVICES Hemoglobin 14.2 11.6 - 15.2 [facility] gm/dl LABORATORY SERVICES HCT 43.9 34.9 - 44.4 % [facility] LABORATORY SERVICES MCV 94 81 - 98 fl [facility] LABORATORY SERVICES MCH 30.4 26.7 - 33.3 pg [facility] LABORATORY SERVICES MCHC 32.3 32.1 - 35.9 [facility] gm/dl LABORATORY SERVICES RDW-CV 13.0 <14.7 % [facility] LABORATORY SERVICES RDW-SD 44.4 <50.4 fl [facility] LABORATORY SERVICES PLT 226 141 - 377 K/[facility] LABORATORY SERVICES MPV 9.3 (L) 9.5 - 12.7 fl [facility] LABORATORY SERVICES Neutrophils 61.9 % [facility] LABORATORY SERVICES Lymphocytes 26.7 % [facility] LABORATORY SERVICES Monocytes 9.3 % [facility] LABORATORY SERVICES Eosinophils 1.3 % [facility] LABORATORY SERVICES Basophils 0.6 % [facility] LABORATORY SERVICES Immature Grans 0.2 % [facility] LABORATORY SERVICES ABS Neutrophils 2.87 2.20 - 8.85 [facility] K/[facility] LABORATORY SERVICES ABS Lymphs 1.24 1.09 - 3.30 [facility] K/[facility] LABORATORY SERVICES ABS Monocytes 0.43 0.1 - 0.8 K/[facility] LABORATORY SERVICES ABS Eosinophils 0.06 0.03 - 0.61 [facility] K/[facility] LABORATORY SERVICES ABS Basophils 0.03 0.01 - 0.11 [facility] K/[facility] LABORATORY SERVICES ABS Immature Grans 0.01 0 - 0.06 /[facility] LABORATORY SERVICES Type of Diff: Automated [facility] LABORATORY SERVICES Specimen Blood specimen (specimen) - Blood Performing Organization Address City/[facility]/ZIP Code Phon e Number [facility] LABOR[facility]ORY [address] [place] [address] SERVICES ANCA, IFA (12/18/2018 12:03 EDT) ANCA Interpretation Negative Negative [facility] Comment: LABORATORY DAVID Positive, suggest follow-up DAVID testing if c linically indicated. Cannot SERVICES rule out Atypical ANCA (A-ANCA). No titer performed, ANCA screen is negative. Results were obtained with the INOVA NOVA Lite ANCA ki t by indirect immunofluorescence. 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
--- OUTSIDE RECORDS SUMMARY | 2021-12-07 13:42 | XMS_ITS | Encounter Summary ---
:[address] [facility] Address [address] [place] [address] Care Team Providers Name Role Phone Raquel Martin PA-C Primary Care Provider [phone] Encounter Details Date Type Department Care Team [...] on filedocumented in this encounter Care Teams Platform Operations Director Relationship Specialty Start Date End Date Raquel Martin PA-C PCP - General 08/28/17 [address] [place] [phone] documented as of this encounter
--- OUTSIDE RECORDS SUMMARY | 2021-12-07 13:42 | XMS_ITS | Encounter Summary ---
:1940 Author Organization [facility] Address [address] [place] [address] Care Team Providers Name Role Phone Raquel Martin PA-C Primary Care Provider [phone] Reason for Visit Reason Onset Date Comments Post-OP Follow Up 12/19/2017 Encounter Details Date Type Department Care Team Description 12/19/2017 Telephone [facility] Debby Polo Pos t-OP Follow Up Neurosurgery - [facility] RN [address] [place] [address] Social History Tobacco Use Types [...] Telephone Encounter - Debby Polo RN - 12/19/2017 1311 EDT The patient had questions regarding subdural hematoma and what symptoms to be mindful of. Machinist Bench advised persistent or severe headache, visual disturbance and gait imbalance would prompt a call to 911 and evaluation at her local ED. The patient verbalized understanding. She will avoid aspirin until reevaluation in 2 weeks. documented in this encounter Plan of Treatment Not on filedocumented as of this encounter Visit Diagnoses Not on filedocumented in this encounter Care Teams Bow Maker Production Relationship Specialty Start Date End Date Raquel Martin PA-C PCP - General 08/28/17 [address] [place] [address] documented as of this encounter
--- OUTSIDE RECORDS SUMMARY | 2021-12-07 13:42 | XMS_ITS | Encounter Summary ---
:1940 Author Organization Address [address] [place] [address] Care Team Providers Name Role Phone Raquel Martin PA-C Primary Care Provider [phone] Reason for Visit Reason Onset Date Comments Other 08/20/2019 lab results Encounter Details Date Type Department Care Team Description 08/20/2019 Telephone [facility] Sam Ryan Othe r (lab results) Ophthalmology - [place] [address] [facility] [address] [place] [phone] (Wo rk) Social History Tobacco Use Types [...] ordered at last visit w/Dr. Ryan. Called [facility] where patient had labs done - not back yet but will fax to us when they get results. documented in this encounter Plan of Treatment Not on filedocumented as of this encounter Visit Diagnoses Not on filedocumented in this encounter Care Teams Adaptive Physical Education Teacher Relationship Specialty Start Date End Date Raquel Martin PA-C PCP - General 08/28/17 [address] [place] [address] documented as of this encounter
--- OUTSIDE RECORDS SUMMARY | 2021-12-07 13:42 | XMS_ITS | Clinical Summary ---
:1940 Author Organization [facility] Address [address] [place] [address] Care Team Providers Name Role Phone Raquel Martin PA-C Primary Care Provider [phone] Allergies Active Allergy Reactions Severity Noted Date Comments Codeine Insomnia Medium 08/28/2017 nervous Erythromycin GI upset Low 08/28/2017 Sulfa (Sulfonamide Rash High 11/12/2017 Pt is not really sure if Antibiotics) she has an andrew rgy or not, states it has been so long since s he had it Medications Medication Sig Dispensed Refills Start Date End Date Status lisinopril (PRINIVIL, Take 2.5 mg by 0 Active ZESTRIL) 2.5 mg tablet mouth daily. NIFEdipine XL Take 30 mg by 0 Ac tive (PROCARDIA-XL) 30 mg mouth daily. tablet Multivitamins with Take 1 Tab by 0 Active Minerals tablet tablet mouth daily. ALBUTEROL INHL Inhale as 0 Activ e directed as needed. tiotropium (SPIRIVA Inhale 18 mcg as 0 Active WITH HANDIHALER) 18 mcg directed daily. inhalation capsule acetaminophen (TYLENOL) Take 2 Tabs by 0 11/16/2017 Active 325 mg tablet mouth every 4 hours as needed for Pain. Additional Information Patient not taking. Reported on 08/23/2021 beta-carotene,A,-vits C,E/mins (OCUVITE Take by mouth daily. 0 Active ORAL) metoprolol TARtrate (LOPRESSOR) 50 mg Take 50 mg by mouth 2 times 0 Active tablet daily. digoxin (LANOXIN) 125 mcg (0.125 mg) tablet Take 5 mcg by mouth daily. 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 ?? Surgical History Surgery Date Site/Laterality Comments EYE SURGERY Bilateral Cataract TUBAL LIGATION INTRAOCULAR LENS PROSTHESIS INSERTION CATARACT REMOVAL Medical History Medical History Date Comments Bursitis On the right Chronic back pain PMR (polymyalgia rheumatica) ([facility]) ([facility]) Hypertension Family History Medical History Relation Name Comments Lung Cancer Father Macular Degeneration Mother Relation Name Status Comments Father Mother Social History Tobacco Use Types Packs/Day Years Used Date Former Smoker Quit: 08/29/19 07 Smokeless Tobacco: Never Used Alcohol Use Standard Drinks/Week Comments No 0 (1 standard drink = 0.6 oz pure alcoho l) Sex Assigned at Date Recorded Not on file Last Filed Vital Signs Vital Sign Reading Time Taken Comments Blood Pressure 132/84 01/01/2018 1339 EDT Pulse 84 01/01/2018 1339 EDT Temperature 36.4 ??C (97.5 ??F) 12/18/2017 1052 EDT Respiratory Rate 12 01/01/2018 1339 EDT Oxygen Saturation 98% 11/16/2017 0950 EDT Inhaled Oxygen Concentration - - Weight 80.7 kg (178 lb) 11/14/2017 0200 EDT Height 166.4 cm (5' 5.51) 11/14/2017 0200 EDT Body Mass Index 29.16 11/14/2017 0200 EDT Plan of Treatment Health Maintenance Due Date Last Done Comments Hepatitis C Screen 1940 COVID-19 Vaccine (#1) 1940 Fall Risk Screening 2007 Insurance Payer Benefit Plan / Subscriber ID Effective Phone Address T ype Group Dates MEDICARE MEDICARE A/B [id number] 2007-Prese [address] Medicare [place] [facility] [place] [address] [place] [id number] 2017-Prese [address] [place] [phone] Guarantor Name Account Type Relation to Date of Phone Bill ing Patient Address Rehan Gann Personal/Family Self 1940 [address] [place] [address] Sanjuanita,Rehan Agnieszka Personal/Family Self 1940 [address] [place] [address] Rehan Gann Personal/Family Self 1940 [address] [place] [address] [place]io[place],Rehan Agnieszka Personal/Family Self 1940 [address] [place] [address] SanjuanitaRehan Agnieszka Personal/Family Self 1940 [address] [place] [address] Rehan Gann Personal/Family Self 1940 [address] [place] [address] AntiochRehan Aaron Personal/Family Self 1940 [address] [place] [address] AntiochRehan leggett Personal/Family Self 1940 [address] [place] [address] Advance Directives For more information, please contact: [phone] Documents on File Type Date Recorded Patient Dependency Program Director Explanati on Advance Directive 11/12/2017 5:47 [place] Advanced Di rective for Health Care sign ed 2017-10-11 Latest Code Status on File Code Status Date Activated Date Inactivated Comments Full Code 11/12/2017 12:36 11/16/2017 13:31 Reason for decision includes: Full code consistent with over all plan of care Who participated in the discussion? Not Discussed Full Code 11/12/2017 6:31 11/12/2017 12:36 Reason for decision includes: Full code consistent with over all plan of care Who participated in the discussion? Not Discussed Care Teams Launchman Relationship Specialty Start Date End Date Raquel Martin PA-C PCP - General 08/28/17 [address] [place] [address]
--- OUTSIDE RECORDS SUMMARY | 2021-12-07 13:42 | XMS_ITS | Encounter Summary ---
:1940 Author Organization [facility] Address [address] [place] [address] Care Team Providers Name Role Phone Raquel Martin PA-C Primary Care Provider [phone] Reason for Visit Reason Onset Date Comments Appointment Related 12/18/2018 Encounter Details Date Type Department Care Team Description 12/18/2018 Telephone [facility] Sohail Chaudhry ent Related Neurophysiology - [facility] MD Pedro [place] [address] [place] [address] [place], [address] [place] [address] (Wo rk) Social History Tobacco [...] on filedocumented in this encounter Care Teams Gas Processing Plant Operator Relationship Specialty Start Date End Date Raquel Martin PA-C PCP - General 08/28/17 [address] [place] [phone] documented as of this encounter
--- OUTSIDE RECORDS SUMMARY | 2021-12-07 13:42 | XMS_ITS | Encounter Summary ---
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 Encounter Details Date Type Department Care Team Description 08/23/2021 Office Visit [facility] Kayla Ryan MD Ophthalmology - [place] [address] [place] [phone] [address] [place], [place] [address] [phone] Social History Tobacco Use Types Packs/Day Years [...] Endocrine: NL Hematologic: NL Immunologic: Drug Allergy Superintendent Oil Field Drilling: Exposures: None Other: Attestation: Base Eye Exam [...] Normal Normal Refraction Wearing Rx Sphere Cylinder [place] Add Right -1.50 +1.50 179 +2.25 Left +0.25 +1.00 179 +2.25 Manifest Refraction Sphere Cylinder [place] Right -1.75 +1.00 005 Left +0.50 +1.25 [...] Sam Ryan MD I am scribing for Sma Ryan MD, while he is personally performing [...] BOTH EYES (08/23/2021 11:41 EDT) Specimen Narrative [facility] POINT OF CARE - 08/23/2021 11:41 E DT Indication: Age-related macular degeneration Fundus/disc photo: Right: geographic atr ophy- small increase in atrophy inferior to center of macula Left: geographic atrophy, no significant change from prior. Performing Organization Address City/State/ZIP Code Phon e Number [facility] POINT OF CARE documented in [...] Periphery Normal Normal Wearing Rx Sphere Cylinder [place] Add Right eye -1.50 +1.50 179 +2.25 Left eye +0.25 +1.00 179 +2.25 Manifest Refraction Sphere Cylinder [place] Right eye -1.75 +1.00 005 Left eye +0.50 +1.25 [facility] Care Teams Wildlife Rehabilitator Relationship Specialty Start Date End Date Raquel Martin PA-C PCP - General 08/28/17 [address] [place] [phone] documented as of this encounter
--- OUTSIDE RECORDS SUMMARY | 2021-12-07 13:42 | XMS_ITS | Encounter Summary ---
:1940 Author Organization [facility] Address [address] [place] [address] Care Team Providers Name Role Phone Raquel Martin PA-C Primary Care Provider [phone] Reason for Visit Reason Comments Post-OP Follow Up aneurysm, CT today Follow Up (Routine) - Authorization Not Required Specialty Diagnoses / Procedures Referred By Contact Refer red To Contact Neurosurgery Diagnoses Cerebral aneurysm, nonruptured Varsha Patrick, Yosef Shields PA-C PA-C [address] [place] [address], [address] [place] [phone] Referral ID Status Reason Start Expiration Visits Visits Date Date Requested Authorized [id number] Authorization Specialty 1 1 Not Required Services 8 Required Encounter Details Date Type Department Care Team Description 12/18/2017 Post-op Visit [facility] Carmen Rodriguez aneurysm, nonruptured (Primary Dx); Neurosurgery - [facility] ANGEL [place] SDH (subdural hematoma) [facility] [place] [address] [place] [address] [place] [address] (Wo rk) Social History Tobacco [...] documented as of this encounter Care Teams Interactive Media Marketing Specialist Relationship Specialty Start Date End Date Raquel Martin PA-C PCP - General 08/28/17 [address] [place] [phone] documented as of this encounter
--- OUTSIDE RECORDS SUMMARY | 2021-12-07 13:42 | XMS_ITS | Encounter Summary ---
:1940 Author Organization [facility] Address [address] [place] [address] Care Team Providers Name Role Phone Raquel Martin PA-C Primary Care Provider [phone] Encounter Details Date Type Department Care Team Description 01/21/2019 Documentation Visit [facility] Sohail Chaudhry Ophthalmology - Paddy Vasquez MD [address] [phone] [facility] [address] [place] [address] (Wo rk) Social History Tobacco [...] documented as of this encounter Progress Notes Sohail Chaudhry MD - 01/21/2019 0000 EDT [facility] NEURO-OPHTHALMOLOGY January 21, 2019 Raquel Martin PA-C [address] [address] RE: REHAN FRITZ : 1940 Dear Garfieldtiffaniesamra: Ms Fritz returned for further neuro-ophthalmic evaluation at the end of November due to progressive visual difficulties. At the time, she was seen the patient had subnormal best corrected visual acuity in each eye, left more so than right. There is mild dyschromatopsia. The patient showed general macular depression in each eye. Repeat studies were obtained to include nutritional laboratory studies,which again demonstrated a slightly elevated methylmalonic acid and borderline low B12 at 229 and for the B12 and methylmalonic acid elevated at 0.69 with a cut off 0.40. Previously, the patient's methylmalonic acid was much higher at 0.84. However, the patient related that she has continued with B12 supplementation. Nonetheless, it appears that she remains functionally B12 deficient. The patient has subsequently undergone additional diagnostics to include evoked potentials and ERG demonstrating mildly delayed latencies in each eye, consistent with maculopathy or mild optic neuropathy bilaterally. I recommend continued aggressive supplementation with B12 as well as AREDS2 multivitamin. I have encouraged the patient to follow up and asked that she have a consultation with my colleague, Dr Babin, in retina to determine if any additional investigations or therapy are necessary. Please do not hesitate to contact me with any further questions or concerns. Sincerely, Sohail Chaudhry MD Diplomate, the [place] [employer] Neurology textile coating machine operator Department of Ophthalmology NEURO-OPHTHALMOLOGY cc: Raquel Martin PA-C, [address] [phone] documented in this encounter Plan of Treatment Not on filedocumented as of this encounter Visit Diagnoses Not on filedocumented in this encounter Care Teams Pool Hall Inspector Relationship Specialty Start Date End Date Raquel Martin PA-C PCP - General 6/5/18 [address] [place] [address] documented as of this encounter
--- OUTSIDE RECORDS SUMMARY | 2021-12-07 13:42 | XMS_ITS | Encounter Summary ---
:1940 Author Organization [facility] Address [address] [place] [address] Care Team Providers Name Role Phone Raquel Martin PA-C Primary Care Provider [phone] Reason for Visit Reason Comments Follow-up 6-8m f/u ARMD Encounter Details Date Type Department Care Team Description 02/22/2021 Office Visit [facility] Kayla Ryan MD Ophthalmology - [place] [address] [place] [phone] [address] [place], [place] [address] [phone] Social History Tobacco Use Types Packs/Day Years [...] as of this encounter Progress Notes Sam yRan MD - 02/22/2021 7242 EST Chief Complaint Patient presents with ??? Follow-up 6-8m f/u ARMD HPI The patient is a 80 y.o. female here for macular degeneration follow up visit. She reports vision seems stable since last visit. She has some moist feeling in her eyes at times, no new floaters or flashes, and no eye pain. Right Eye: Tearing, Blurred Vision Left Eye: Tearing, Blurred Vision Visual Aid: Glasses Current Rx Age Location: Pain: 0 - No pain Quality: Severity: Duration: Timing: Lasts: Context: Pt here for follow up visit. She reports vision seems stable since last visit. She has no new floaters or flashes, and no eye pain. She gets occasional moist feeling in her eyes. Modifying factors: Associated Signs & Symptoms: Attestation: ROS Constitutional: ENT/Mouth NL Cardiovascular: High Blood Pressure Respiratory: (mild COPD) Gastrointestinal: NL Genitourinary: NL Musculoskeletal: (PMR) Integumentary: NL Neurologic: NL Psychiatric: NL Endocrine: NL Hematologic: NL Immunologic: Drug Allergy Weld Technician: NL Exposures: Other: Attestation: Base Eye Exam Visual Acuity (Snellen - Linear) Right Left Dist cc 20/70 -3 CF at 3' Correction: Glasses Tonometry (Applanation, 11:13) Right Left Pressure 16 17 Pupils Pupils Dark Light APD Right PERRL 4 3 None Left PERRL 4 3 None Checked by RB Visual Flower (Counting fingers) Right Left Full Full Extraocular Movement Right Left Full Full Neuro/Psych Oriented x3: Yes Mood/Affect: Normal Dilation Both eyes: Tropicamide 1%, Phenylephrine 2.5% @ 11:13 Slit Lamp and Fundus Exam Slit Lamp [...] detachment Disc Normal Peripapillary atrophy C/D Ratio 0.3 0.2 Macula Geographic atrophy mostly nasal to fovea, some drusen, pigment mottling, no hemorrhage Geographic atrophy involving the fovea, drusen, no hemorrhage Vessels Normal Normal Periphery Normal Normal Refraction Wearing Rx Sphere Cylinder Edson Add Right -1.50 +1.50 179 +2.25 Left +0.25 +1.00 179 +2.25 DIAGNOSTIC TESTING/PROCEDURES: OCT, Retina - OU - Both Eyes Indication: Age-related macular degeneration OCT macula: Right: signal strength: 9/10, foveal atrophy, window defect, no intra/subretinal fluid Left: signal strength: 10/10, foveal atrophy, window defect, no intra/subretinal fluid Fundus Photos - OU - Both Eyes Indication: Age-related macular degeneration Fundus/Fundus autofluorescence photo: Right: area of geographic atrophy, small amount of change inferior Left: area of geographic atrophy (decreased autofluorescence), some small change inferior IMPRESSION & PLAN: 1. Age-related macular degeneration, both eyes Right: intermediate/ Advanced non-exudative macular degeneration without subfoveal involvement Left: Advanced non-exudative macular degeneration with subfoveal involvement -Recommend regular use of Amsler grid -Recommend AREDS 2 formula supplement 1 cap twice daily -Return 6-7 months complete with Fundus autofluorescence photos or sooner with changes ?? 2. Posterior capsular opacification, left eye -not [...] Rubio, PATRICIA Patient Education Topic: macular degeneration, Posterior capsular opacification Method: Verbal Taught to: Patient Barriers: None Outcomes: independent Signature: Sam Ryan MD documented in this encounter Plan of Treatment Not on filedocumented as of this encounter Procedures Procedure Name Priority Date/Time Associated Diagnosis Comme nts OCT, RETINA - OU - Routine 02/22/2021 12:09 Nonexudative Resul ts for this BOTH EYES EST age-related macular procedur e are in degeneration, left the resul ts eye, advanced section. 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 documented in this encounter Results OCT, RETINA - OU - BOTH EYES (02/22/2021 12:09 EST) Specimen Narrative [facility] POINT OF CARE - 02/22/2021 12:[address] Indication: Age-related macular degeneration OCT macula: Right: signal strength: 9/10 , foveal atrophy, window defect, no intra/subretinal fluid Left: signal strength: 10/10, foveal atr ophy, window defect, no intra/subretinal fluid Performing Organization Address City/State/ZIP Code Phon e Number [facility] POINT OF CARE FUNDUS PHOTOS - OU - BOTH EYES (02/22/2021 12:08 EST) Specimen Narrative [facility] POINT OF CARE - 02/22/2021 12:[address] Indication: Age-related macular degeneration Fundus/Fundus autofluorescence photo: Ri ght: area of geographic atrophy, small amount of change inferior Left: area of geographic atrophy (decrea sed autofluorescence), some small change inferior Performing Organization Address City/[facility]/ZIP Code Phon e Number [facility] POINT OF CARE documented in this [...] Linear) Right eye Left eye Dist cc 20/70 -3 CF at 3' Correction: Glasses Tonometry (Applanation, 11:13) Right eye Left eye Pressure 16 17 Pupils Pupils Dark Light APD Right eye PERRL 4 3 None Left eye PERRL 4 3 None Checked by RB Visual Flower (Counting fingers) Right eye Left eye Full Full Extraocular Movement Right eye Left eye Full Full Neuro/Psych Oriented x3: Yes Mood/Affect: Normal Dilation Both eyes: Tropicamide 1%, Phenylephrine 2.5% @ 11:13 Slit Lamp Exam Right eye Left eye [...] Periphery Normal Normal Wearing Rx Sphere Cylinder Edson Add Right eye -1.50 +1.50 179 +2.25 Left eye +0.25 +1.00 179 +2.25 Care Teams Ladle Puller Relationship Specialty Start Date End Date Raquel Martin PA-C PCP - General 08/28/17 [address] [place] [phone] documented as of this encounter
--- OUTSIDE RECORDS SUMMARY | 2021-12-07 13:42 | XMS_ITS | Encounter Summary ---
:1940 Author Organization [facility] Address [address] [place] [address] Care Team Providers Name Role Phone Raquel Martin PA-C Primary Care Provider [phone] Reason for Visit Reason Onset Date Comments Update 02/06/2019 Encounter Details Date Type Department Care Team Description 02/06/2019 Telephone [facility] Sohail Chaudhry, Update Ophthalmology - [facility] [address] [facility] [address] [phone] [place], [address] [place] [address] (Wo rk) Social History Tobacco [...] [address] Tej Ryan in the [place] office. She'd like [facility], to call her back. documented in this encounter Plan of Treatment Not on filedocumented as of this encounter Visit Diagnoses Not on filedocumented in this encounter Care Teams Human Intelligence Relationship Specialty Start Date End Date Raquel Martin PA-C PCP - General 08/28/[address] [place] [phone] documented as of this encounter
--- OUTSIDE RECORDS SUMMARY | 2021-12-07 13:42 | XMS_ITS | Encounter Summary ---
:1940 Author Organization [facility] Address [address] [place] [address] Care Team Providers Name Role Phone Raquel Martin PA-C Primary Care Provider [phone] Encounter Details Date Type Department Care Team Description 05/01/2020 Lab Requisition [facility] Outr Resulting Lab, Pathology & Laboratory Provider General acute hospital [address] [place], [place] [id number] Social History Tobacco Use Types Packs/Day Years [...] Name Priority Date/Time Associated Diagnosis Comme nts COVID-19 TEST [facility] Today 05/01/2020 11:20 LAB PCR EST COVID-19 TESTING Routine 05/01/2020 11:20 Results for this EST procedure are i n the results section. documented in this encounter Results COVID-19 TEST [facility] PCR (05/01/2020 11:20 EST) Specimen Swab - Entire nasopharynx (body structur e) Performing Organization Address City/State/ZIP Code Phon e Number [facility] [address] [place] [address] SERVICES COVID-19 TESTING (05/01/2020 11:20 EST) COVID-19 rt-PCR Negative Negative [facility] Result Comment: [facility] This test has not been FDA c leared or approved. This test has been authorized by FDA under an EUA for use by authorized laboratories. This test has been authorized only for detection of nucleic acid fro SERVICES m 2019-nCoV, not for any oth er viruses or pathogens. This test is only authorized for the duration of the declaration that circumstances exist justifying the authorization of emergency use of in vitro d iagnostic tests for detectio n and/or diagnosis of 2019-nCoV under section 564(b)(1) of Act, 21 U.S.C ?? 360bbb-3(b) (1), unless the authorization is terminated or revoked sooner. Negative results do not prec lude 2019-nCoV infection and should not be used as the sole basis for treatment or other patient management decisions. Negative results must be combined with clinical observa tions, patient history, and epidemiological informatio n. This test was developed and its performance characteristics determined by [facility]. It has not been cleared or approved by the US Food and Drug Administration. FDA does not require this test to go through premarket FDA review. This t est is used for clinical purposes. It should not be regarded as investigational or for research. This laboratory is certified under the Clinical Laboratory Improvement Amendm ents (CLIA) as qualified to perform high complexity clinical laboratory testing. This test is based on the CD C COVID-19 Emergency Use Authorization (EUA) assay, with minor modification as defined by the FDA Performed on the Autopilot 7 Flex RT-PCR System. Performing Lab [facility] SERVICES Specimen Swab Performing Organization Address City/State/ZIP Code Phon e Number [facility] [address] [place] [address] SERVICES documented in this encounter Visit Diagnoses Not on filedocumented in this encounter Care Teams Tablet Coater Relationship Specialty Start Date End Date Raquel Martin PA-C PCP - General 08/28/17 [address] [place] [phone] documented as of this encounter
--- OUTSIDE RECORDS SUMMARY | 2021-12-07 13:42 | XMS_ITS | Encounter Summary ---
:1940 Author Organization [facility] Address [address] [place] [address] Care Team Providers Name Role Phone Raquel Martin PA-C Primary Care Provider [phone] Reason for Referral Laboratory Services (Routine) - New Request Specialty Diagnoses / Procedures Referred By Contact Refer red To Contact Diagnoses Low vitamin B12 level Sam Ryan MD Procedures VITAMIN B12 [address] [place] [phone] Referral ID Status Reason Start Date Expiration Date Visits V isits Requested Authorized [id number] New Request 08/13/2019 1 1 aboratory Services (Routine) - New Request Specialty Diagnoses / Procedures Referred By Contact Refer red To Contact Diagnoses Low vitamin B12 level Sam Ryan MD Procedures METHYLMALONIC ACID [address] [place] [address] Referral ID Status Reason Start Date Expiration Date Visits V isits Requested Authorized [id number] New Request 08/13/2019 1 1 Reason for Visit Reason Comments Macular Degeneration 6 month follow up per Dr Loco lundberg for Macular degeneration Encounter Details Date Type Department Care Team Description 08/13/2019 Office Visit [facility] Kayla Ryan MD Ophthalmology - [place] [address] [place] [address] [address] [place] [address] [place] [address] [phone] Social History Tobacco Use Types Packs/Day Years [...] Endocrine: NL Hematologic: NL Immunologic: Drug Allergy Die Press Operator: Exposures: None Other: Attestation: Base Eye Exam [...] Normal Normal Refraction Wearing Rx Sphere Cylinder [place] Add Right -1.50 +1.50 179 +2.25 Left [...] 12:51 EDT) Specimen Narrative POINT OF CARE [facility] - 08/13/2019 12:51 E DT Right Eye 30??. Macula. Progression has no prior d supa. Macula findings include geographic atrophy, retinal pigment epit helium abnormalities. Vessel findings include normal observations. Left Eye 30??. Macula. Progression has no prior d supa. Macula findings include geographic atrophy, retinal pigment epit helium abnormalities. Vessel findings include normal observations. Performing Organization Address [facility]/ZIP Code Phon e Number [facility] POINT OF CARE POINT OF CARE [facility] OCT, RETINA - OU - BOTH EYES (08/13/2019 12:50 EDT) Specimen Narrative POINT OF CARE [facility] - 08/13/2019 12:50 E DT Indication: Age-related macular degeneration OCT macula: Right: signal strength: 9/10 , normal foveal contour, no intra/subretinal fluid, RPE atrophy Left: signal strength: 8/10, normal fove al contour, no intra/subretinal fluid, RPE atrophy Performing Organization Address [facility] Phon e Number [facility] POINT OF CARE POINT OF CARE [facility] documented in this encounter Visit Diagnoses Diagnosis [...] Periphery Normal Normal Wearing Rx Sphere Cylinder [place] Add Right eye -1.50 +1.50 179 +2.25 Left eye +0.25 +1.00 179 +2.25 Age: 8m Care Teams Retail Seasonal Specialist Relationship Specialty Start Date End Date Raquel Martin PA-C PCP - General 08/28/17 [address] [place] [phone] documented as of this encounter
--- OUTSIDE RECORDS SUMMARY | 2021-12-07 13:42 | XMS_ITS | Encounter Summary ---
:1940 Author Organization [facility] Address [address] [place] [address] Care Team Providers Name Role Phone Raquel [facility] Primary Care Provider [phone] Reason for Visit Reason Onset Date Comments Appointment Related 12/19/2017 Encounter Details Date Type Department Care Team Description 12/19/2017 Telephone [facility] Carmen Rodriguez A ppointment Related Neurosurgery - [facility] [place] [address] [place] [address] [place], [place] [address] [place] [address] [phone] (Wo rk) Social History Tobacco Use [...] on filedocumented in this encounter Care Teams Career Development Coordinator/Teacher Relationship Specialty Start Date End Date Raquel Martin PA-C PCP - General 08/28/17 [address] [place] [address] documented as of this encounter
--- OUTSIDE RECORDS SUMMARY | 2021-12-07 13:42 | XMS_ITS | Encounter Summary ---
:1940 Author Organization [facility] Address [address] [place] [address] Care Team Providers Name Role Phone Raquel Martin PA-C Primary Care Provider [phone] Encounter Details Date Type Department Care Team Description 12/26/2019 Lab Requisition [facility] Outr Resulting Lab, Pathology & Laboratory Provider [facility] [address] [place], [place] [id number] Social History Tobacco Use Types Packs/Day Years [...] (12/26/2019 9:28 EDT) COVID-19 rt-PCR NEGATIVE Negative [facility] Result Comment: LABORATORY 2019-novel Coronavirus (2019 -nCoV) [...] Organization Address City/State/ZIP Code Phon e Number [facility] LABORATORY [facility]AT[facility] [place], [place] COVID-19 TESTING (12/26/2019 9:28 EDT) COVID-19 rt-PCR NEGATIVE Negative [facility] Result Comment: LABORATORY 2019-novel Coronavirus (2019 -nCoV) [...] Administration's Emergency Use Authorization. Performing Lab [facility] LABORATORY SERVICES Specimen Swab Performing Organization Address City/State/ZIP Code Phon e Number [facility] [address] [place] [address] SERVICES [facility] [place], [place] documented in this encounter Visit Diagnoses Not on filedocumented in this encounter Care Teams Home Care Companion Relationship Specialty Start Date End Date Raquel Martin PA-C PCP - General 08/28/17 [address] [place] [address] documented as of this encounter
--- OUTSIDE RECORDS SUMMARY | 2021-12-07 13:42 | XMS_ITS | Encounter Summary ---
:1940 Author Organization [facility] Address [address] [place] [address] Care Team Providers Name Role Phone Raquel Martin PA-C Primary Care Provider [phone] Reason for Visit Reason Onset Date Comments Other 01/14/2019 Encounter Details Date Type Department Care Team Description 01/14/2019 Telephone [facility] Isidoro, Sohail Vasquez, Other Ophthalmology - [facility] 111 [facility] [address] [phone] [place], [address] [place] [address] (Wo rk) Social History Tobacco [...] scheduled to see Dr Chaudhry and Dr Babin today. Luis Alberto Dimas RN 01/22/2019 7:36 [...] on filedocumented in this encounter Care Teams Caul Puller Relationship Specialty Start Date End Date Raquel Martin PA-C PCP - General 08/28/[address] [place] [phone] documented as of this encounter
--- OUTSIDE RECORDS SUMMARY | 2021-12-07 13:42 | XMS_ITS | Encounter Summary ---
:1940 Author Organization [facility] Address [address] [place] [address] Care Team Providers Name Role Phone Raquel Martin PA-C Primary Care Provider [phone] Encounter Details Date Type Department Care Team Description 01/01/2018 Hospital Encounter [facility], Carmen Eagle, [facility] 111 [facility] [address] [place] [address] [place] [address] [place] [phone] (Wo rk) Social History Tobacco Use Types [...] on filedocumented in this encounter Care Teams Dba Developer Relationship Specialty Start Date End Date Raquel Martin PA-C PCP - General 08/28/17 [address] [place] [phone] documented as of this encounter
--- OUTSIDE RECORDS SUMMARY | 2021-12-07 13:42 | XMS_ITS | Encounter Summary ---
:1940 Author Organization [facility] Address [address] [place] [address] Care Team Providers Name Role Phone Raquel Martin PA-C Primary Care Provider [phone] Reason for Visit Reason Comments Post-OP Follow Up aneurysm, CT today Encounter Details Date Type Department Care Team Description 01/01/2018 Post-op Visit [facility] Naef, Carmen Cerebra l aneurysm, nonruptured (Primary Dx); Neurosurgery - Paddy Eagle PA-C SDH (subdural hematoma) ([facility]) [place] [address] [place] [address] [facility] [address] [place] [address] (Wo rk) Social History Tobacco [...] Diagnosis Date Noted ??? SDH (subdural hematoma) ([facility]) 12/18/2017 Priority: Medium ??? Cerebral aneurysm, nonruptured [...] documented as of this encounter Care Teams Assistant Clinical Nurse Manager Relationship Specialty Start Date End Date Raquel Martin PA-C PCP - General 08/28/17 [address] [place] [address] documented as of this encounter
--- OUTSIDE RECORDS SUMMARY | 2021-12-07 13:42 | XMS_ITS | Encounter Summary ---
:1940 Author Organization [facility] Address [address] [place] [address] Care Team Providers Name Role Phone Raquel Martin PA-C Primary Care Provider [phone] Reason for Visit Reason Onset Date Comments Post-OP Follow Up 11/22/2017 Encounter Details Date Type Department Care Team Description 11/22/2017 Telephone [facility] Sharri Henao MD Post-OP Follow Up Neurosurgery - [address], [address], [address] [place], [place] [address] [place] [address] [phone] (Wo rk) Social History Tobacco Use [...] Notes Telephone Encounter - Iza Haynes - 11/27/2017 1225 EDT Confirmed the following appointment details with Rehan: 12/18/17 - [facility] Bertram Check in at 9am at registration CT at 9:30am POV at 11am with Carmen Rodriguez, PAC Rehan verbalized understanding and denied having any questions. elephone Encounter - Alea Kessler - 11/27/2017 1134 EDT Patient would like CT and labs done at [facility] if possible. elephone Encounter - Lucia Olvera - 11/22/2017 1508 EDT Left message for [facility] letting them know that the post- op appointment should be with Carmen. I told them we would let them know if she can have the scan closer to the rehab facility. documented in this encounter Plan of Treatment Not on filedocumented as of this encounter Visit Diagnoses Not on filedocumented in this encounter Care Teams Psychology Teacher Relationship Specialty Start Date End Date Raquel Martin PA-C PCP - General 08/28/17 [address] [place] [address] documented as of this encounter
--- OUTSIDE RECORDS SUMMARY | 2021-12-07 13:42 | XMS_ITS | Encounter Summary ---
:1940 Author Organization [facility] Address [address] [place] [address] Care Team Providers Name Role Phone Raquel Martin PA-C Primary Care Provider [phone] Reason for Visit Reason Onset Date Comments Advice Only 01/15/2018 Encounter Details Date Type Department Care Team Description 01/15/2018 Telephone [facility] Debby Polo RN Advice Only Neurosurgery - [facility] [place] [address] [place] [address] Social History Tobacco Use Types Packs/Day Years [...] on filedocumented in this encounter Care Teams Personal Counselor Relationship Specialty Start Date End Date Raquel Martin PA-C PCP - General 08/28/[address] [place] [address] documented as of this encounter
--- OUTSIDE RECORDS SUMMARY | 2021-12-07 13:42 | XMS_ITS | Encounter Summary ---
:1940 Author Organization [facility] Address [address] [place] [address] Care Team Providers Name Role Phone Raquel Martin PA-C Primary Care Provider [phone] Reason for Visit Reason Comments Eye Exam Eval of AMD Encounter Details Date Type Department Care Team Description 01/22/2019 Office Visit [facility] Ted Babin MD Ophthalmology - [address], [address], [address] [place], [place] [address] [place] [address] [phone] (Wo rk) Social History Tobacco Use [...] major study sponsored by the National Eye Farwell (NEI), one of the Federal Government's National Institutes of Health, and conducted at [address] [facility] research facilities around the country. In [...] AREDS is available from the National Eye Farwell of the National Institutes ofHealth, www.nei.nih.gov/amd. Your Eye M.D. is your best source of information about eye care. You can also get trustworthy information from the [place] [employer]hthal[employer]'s partner Web site, [employer] www.PopJax/MedLB/bufferpage aao.cfm. -What Should You Buy? To try [...] discolored, or otherwise abnormal, please call your animal surgeon at [facility] right away @ [phone]. 6. Do the test for each eye [...] Justin Santos - 01/22/2019 0000 EDT [facility] OPHTHAL[facility]OLOGY January 22, 2019 Sohail Chaudhry MD [facility] - Ophthalmology [address] [place] [address] RE: REHAN FRITZ : [address] [...] degeneration. I am going to get the [place] [employer] to see [...] - Justin Babin MD ln Dictation ID: [id number] cc: Raquel Martin PA-C, [address] [phone] Sohail Chaudhry MD, [facility] - Ophthalmology [address] [place] [address] Myles Trejo MD, [facility] [address], [address], [place] [address] documented in this encounter Plan of Treatment [...] heme, HE or SSF heme Care Teams Plumbing Drafter Relationship Specialty Start Date End Date Raquel Martin PA-C PCP - General 08/28/17 [address] [place] [phone] documented as of this encounter
--- OUTSIDE RECORDS SUMMARY | 2021-12-07 13:42 | XMS_ITS | Encounter Summary ---
:1940 Author Organization [facility] Address [address] [place] [address] Care Team Providers Name Role Phone Raquel Martin PA-C Primary Care Provider [phone] Reason for Visit Reason Onset Date Comments Other 12/31/2018 Encounter Details Date Type Department Care Team Description 12/31/2018 Telephone [facility] Isidoro, Sohail Vasquez, Other Ophthalmology - [facility] [address] [facility] [address] [phone] [place], [address] [place] [address] (Wo rk) Social History Tobacco [...] Miscellaneous Notes Telephone Encounter - Luis Alberto Dimas, RN - 12/31/[address] Chaudhry: It is post surgical, should resolve. ??I would defer any further questions or concerns to neurosurg. Called and spoke to patient. Relayed the message. All questions answered. Stated I would continue to show on the AVS under problem list. She will follow up with Neuro Surg with other questions. Luis Alberto Dimas RN 12/31/2018 11:13 elephone Encounter - Modesta Hurtado - 12/31/2018 1000 EDT On patients AVS under problems list it says SDH subdural hematoma. She was wondering if that's something she always had or is that something new Dr Chaudhry had seen. Maybe it was something dr Henao found? documented in this encounter Plan of Treatment Not on filedocumented as of this encounter Visit Diagnoses Not on filedocumented in this encounter Care Teams Documentum Consultant Relationship Specialty Start Date End Date Raquel Martin PA-C PCP - General 08/28/17 [address] [place] [address] documented as of this encounter
--- OUTSIDE RECORDS SUMMARY | 2021-12-07 13:42 | XMS_ITS | Encounter Summary ---
:1940 Author Organization [facility] Address [address] [place] [address] Care Team Providers Name Role Phone Raquel Martin PA-C Primary Care Provider [phone] Reason for Visit Reason Onset Date Comments Post-OP Follow Up 11/19/2017 Encounter Details Date Type Department Care Team Description 11/19/2017 Telephone [facility] Debby Polo Pos t-OP Follow Up Neurosurgery - [facility] RN [address] [place] [address] Social History Tobacco Use Types [...] 11/19/2017 1012 EDT Spoke with Director at [facility] and advised staple removal at 14 days post procedure. documented in this encounter Plan of Treatment Not on filedocumented as of this encounter Visit Diagnoses Not on filedocumented in this encounter Care Teams Supervisor Detasseling Crew Relationship Specialty Start Date End Date Raquel Martin PA-C PCP - General 08/28/[address] [place] [phone] documented as of this encounter
--- OUTSIDE RECORDS SUMMARY | 2021-12-07 13:42 | XMS_ITS | Encounter Summary ---
:1940 Author Organization [facility] Address [address] [place] [address] Care Team Providers Name Role Phone Raquel Martin PA-C Primary Care Provider [phone] Reason for Visit Reason Onset Date Comments Appointment Related 02/06/2018 Encounter Details Date Type Department Care Team Description 02/06/2018 Telephone [facility] Sohail Chaudhry ent Related Ophthalmology - [place] [address] [phone] [facility] [address] [place] [address] (Wo rk) Social History Tobacco [...] this encounter Miscellaneous Notes Telephone Encounter - Lexi Martínez OTA - 02/06/2018 1415 EST S/W Dr. Chaudhry - he said that if the pt is doing well, if she has no double vision, is doing well / happy with her vision, then would be fine to f/u at [facility]. If any problems arise or return,would have them come here. S/W Gilma at [facility] - relayed above, she will let the pt know. elephone Encounter - Maddison Kerns - 02/06/2018 1328 EST [facility] is asking if the patient needs to follow up with Dr. Chaudhry. Originally, Dr. Chaudhry wanted to see Ms. 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 The patient is under the impression that follow up with Dr. Chaudhry is no longer needed and she can follow up with [facility]. They would like a return call to confirm this is OK. Patient prefers not to have to make the trip to [place]. documented in this encounter Plan of Treatment Not on filedocumented as of this encounter Visit Diagnoses Not on filedocumented in this encounter Care Teams Brands Editor Relationship Specialty Start Date End Date Raquel Martin PA-C PCP - General 08/28/17 [address] [place] [address] documented as of this encounter
--- OUTSIDE RECORDS SUMMARY | 2021-12-07 13:42 | XMS_ITS | Encounter Summary ---
:1940 Author Organization [facility] Address [address] [place] [address] Care Team Providers Name Role Phone Raquel Martin PA-C Primary Care Provider [phone] Encounter Details Date Type Department Care Team [...] on filedocumented in this encounter Care Teams Peoplesoft Developer Relationship Specialty Start Date End Date Raquel Martin PA-C PCP - General 08/28/17 [address] [place] [address] documented as of this encounter
--- OUTSIDE RECORDS SUMMARY | 2021-12-07 13:42 | XMS_ITS | Encounter Summary ---
:1940 Author Organization [facility] Address [address] [place] [address] Care Team Providers Name Role Phone Raquel Martin PA-C Primary Care Provider [phone] Reason for Visit Reason Onset Date Comments Other 11/11/2018 Encounter Details Date Type Department Care Team Description 11/11/2018 Telephone [facility] Sharri Henao MD Other Neurosurgery - [address] [address] [place], [place] [address] (Wo rk) Social History [...] this encounter Miscellaneous Notes Telephone Encounter - Gilson Hays - 11/11/2018 1531 EDT Per pt, wanted to express how grateful she is for and his team. Per pt, 1 year ago today she had surgery that she will never forget and is very thankful. documented in this encounter Plan of Treatment Not on filedocumented as of this encounter Visit Diagnoses Not on filedocumented in this encounter Care Teams Director Of Primary Care Relationship Specialty Start Date End Date Raquel Martin PA-C PCP - General 08/28/17 [address] [place] [address] documented as of this encounter
--- OUTSIDE RECORDS SUMMARY | 2021-12-07 13:42 | XMS_ITS | Encounter Summary ---
:1940 Author Organization [facility] Address [address] [place] [address] Care Team Providers Name Role Phone Raquel Martin PA-C Primary Care Provider [phone] Encounter Details Date Type Department Care Team Description 12/18/2017 Hospital Encounter [facility] - Dennis Henao, [facility] 111 [facility] 111 [place], [place] [address] [place] [address] [place], [address] [place] [address] (Wo rk) Social History Tobacco [...] as of this encounter Discharge Diagnoses Diagnosis R51 Headache-R51[ICD-10-CM] documented in this encounter Medications at Time [...] Tab by mouth 0 01/01/2018 daily. documented as of this encounter Discharge Disposition Disposition Code Departure Means Destination Auto Discharge Home documented in this encounter Plan of Treatment Not on filedocumented as of this encounter Visit Diagnoses Not on filedocumented in this encounter Care Teams Parcel Post Carrier Relationship Specialty Start Date End Date Raquel Martin PA-C PCP - General 08/28/17 [address] [place] [address] documented as of this encounter
--- OUTSIDE RECORDS SUMMARY | 2021-12-07 13:42 | XMS_ITS | Encounter Summary ---
:[address] [facility] Address [address] [place] [address] Care Team Providers Name Role Phone Raquel Martin PA-C Primary Care Provider [phone] Reason for Visit Reason Onset Date Comments Update 01/27/2019 Encounter Details Date Type Department Care Team Description 01/27/2019 Telephone [facility] Sohail Chaudhry, Update Ophthalmology - [facility] 111 [facility] [address] [phone] [place], [address] [place] [address] (Wo rk) Social History Tobacco [...] Patient was given the number for the [place] [employer] # [phone] and said that she will start there [...] can follow up with Dr. Ryan in [place]. Called patient to update. Patient went to [...] there someone she could see closer to [place], [place] ? [facility], gave her some names of doctors that see patients in [place]. Does she needs to see a retina specialist? Can see see Dr. Colunga or Dr. Ryan? She'd like to get established with someone [place]erto home and she's like an bunch breaker. If that is OK, who sets up the appointment? Does Dr. Chaudhry have a preference where she is seen? Who does she need to follow up with in six months? documented in this encounter Plan of Treatment Not on filedocumented as of this encounter Visit Diagnoses Not on filedocumented in this encounter Care Teams Data Analysis Manager Relationship Specialty Start Date End Date Raquel Martin PA-C PCP - General 08/28/17 [address] [place] [address] documented as of this encounter
--- OUTSIDE RECORDS SUMMARY | 2021-12-07 13:42 | XMS_ITS | Encounter Summary ---
:[address] [facility] Address [address] [place] [address] Care Team Providers Name Role Phone Raquel Martin PA-C Primary Care Provider [phone] Encounter Details Date Type Department Care Team Description 12/18/2018 Hospital Encounter [facility] MD Pedro 111 [facility] [address] [phone] [place], [address] [address] (Wo rk) Social History Tobacco Use [...] on filedocumented in this encounter Care Teams Document Scanner Relationship Specialty Start Date End Date Raquel Martin PA-C PCP - General 08/28/17 [address] [place] [address] documented as of this encounter
--- OUTSIDE RECORDS SUMMARY | 2021-12-07 13:42 | XMS_ITS | Encounter Summary ---
:1940 Author Organization [facility] Address [address] [place] [address] Care Team Providers Name Role Phone Raquel Martin PA-C Primary Care Provider [phone] Reason for Visit Reason Comments Follow-up Yearly f/u ARMD Encounter Details Date Type Department Care Team Description 02/16/2020 Office Visit [facility] Kayla Ryan MD Ophthalmology - [place] in [address] [place] [address] [address] [place] [address] [address] [place], [place] [address] [phone] Social History Tobacco Use Types Packs/Day Years [...] Endocrine: NL Hematologic: NL Immunologic: Drug Allergy Principal Librarian: NL Exposures: None Other: Attestation: Base Eye [...] Normal Normal Refraction Wearing Rx Sphere Cylinder [place] Add Right -1.50 +1.50 179 +2.25 Left +0.25 +1.00 179 +2.25 Manifest Refraction Sphere Cylinder [place] Dist [place] Right -1.75 +1.25 009 20/50-2 [...] BOTH EYES (02/16/2020 11:59 EST) Specimen Narrative [facility] POINT OF CARE - 02/16/2020 11:[address] Indication: Dry macular degeneration Fundus/disc photo: Right: geographic atr ophy without significant change on Fundus autofluorescence photos. Left: geographic atrophy without signifi cant change on Fundus autofluorescence photos. Performing Organization Address City/State/ZIP Code Phon e Number [facility] POINT OF CARE documented in this encounter [...] Periphery Normal Normal Wearing Rx Sphere Cylinder [place] Add Right eye -1.50 +1.50 179 +2.25 Left eye +0.25 +1.00 179 +2.25 Manifest Refraction Sphere Cylinder [place] Dist [place] Right eye -1.75 +1.25 009 20/50-2 Left eye Care Teams Flow Coordinator Relationship Specialty Start Date End Date Raquel Martin PA-C PCP - General 08/28/17 [address] [place] [address] documented as of this encounter
--- OUTSIDE RECORDS SUMMARY | 2021-12-07 13:42 | XMS_ITS | Encounter Summary ---
:1940 Author Organization [facility] Address [address] [place] [address] Care Team Providers Name Role Phone Raquel Martin PA-C Primary Care Provider [phone] Reason for Visit Reason Onset Date Comments Results 08/25/2019 Encounter Details Date Type Department Care Team Description 08/25/2019 Telephone [facility] Kayla Ryan MD Results Ophthalmology - [place] [address] [place] [address] [address] [place] [address] [address] [place], [place] [address] [phone] Social History Tobacco Use Types Packs/Day Years [...] this encounter Miscellaneous Notes Telephone Encounter - Sam Ryan MD - 08/25/2019 7987 EDT I spoke with Rehan Gann regarding the results of recent laboratory testing for MMA and Vit b12 which are now within the normal range. she will follow up as scheduled with her PCP and here as scheduled. documented in this encounter Plan of Treatment Not on filedocumented as of this encounter Visit Diagnoses Not on filedocumented in this encounter Care Teams Critical Care Educator Relationship Specialty Start Date End Date Raquel Martin PA-C PCP - General 08/28/17 [address] [place] [address] documented as of this encounter
--- OUTSIDE RECORDS SUMMARY | 2021-12-07 13:42 | XMS_ITS | Encounter Summary ---
:1940 Author Organization [facility] Address [address] [place] [address] Care Team Providers Name Role Phone Raquel Martin PA-C Primary Care Provider [phone] Reason for Visit Reason Onset Date Comments Advice Only 11/28/2017 Encounter Details Date Type Department Care Team Description 11/28/2017 Telephone [facility] Debby Polo RN Advice Only Neurosurgery - Main [place] [address] [place] [address] Social History Tobacco Use Types Packs/Day Years [...] on filedocumented in this encounter Care Teams Ship'S Engineer Relationship Specialty Start Date End Date Raquel Martin PA-C PCP - General 08/28/17 [address] [place] [phone] documented as of this encounter
--- OUTSIDE RECORDS SUMMARY | 2021-12-07 13:42 | XMS_ITS | Encounter Summary ---
:1940 Author Organization [facility] Address [address] [place] [address] Care Team Providers Name Role Phone Raquel Martin PA-C Primary Care Provider [phone] Reason for Visit Reason Comments Follow-up Yearly f/u - Age-related mac ular degeneration Encounter Details Date Type Department Care Team Description 10/12/2020 Office Visit [facility] Kayla Ryan MD Ophthalmology - [place] in [address] [place] [address] [address] [place], [place] [address] [phone] Social History Tobacco Use Types Packs/Day Years [...] Progress Notes Sam Ryan MD - 10/12/2020 4247 EDT Chief Complaint Patient presents with ??? [...] Endocrine: NL Hematologic: NL Immunologic: Drug Allergy Strategic Procurement Manager: NL Exposures: None Other: Attestation: Base [...] Normal Normal Refraction Wearing Rx Sphere Cylinder [place] Add Right -1.50 +1.50 179 +2.25 Left +0.25 +1.00 179 +2.25 Manifest Refraction (Auto) Sphere Cylinder [place] Right -1.75 +1.25 006 Left -0.75 +1.25 [...] my own HPI and have reviewed the [facility]'s ROS as well. I completed this [...] BOTH EYES (10/12/2020 14:17 EDT) Specimen Narrative [facility] POINT OF CARE - 10/12/2020 14:17 E [...] Periphery Normal Normal Wearing Rx Sphere Cylinder [place] Add Right eye -1.50 +1.50 179 +2.25 Left eye +0.25 +1.00 179 +2.25 Manifest Refraction (Auto) Sphere Cylinder [place] Right eye -1.75 +1.25 006 Left eye -0.75 +1.25 135 Care Teams Mingle Operator Relationship Specialty Start Date End Date Raquel Martin PA-C PCP - General 08/28/17 [address] [place] [address] documented as of this encounter
--- OUTSIDE RECORDS SUMMARY | 2021-12-07 13:43 | XMS_ITS | Encounter Summary ---
:1940 Author Organization [facility] Address [address] [place] [address] Care Team Providers Name Role Phone Unavailable Primary Care Provider Unavailable Encounter Details Date Type Department Care Team Description 09/08/2003 Results Only [facility] - Anthony Rubin MD Maple conversion [address] [place] [address] [place] [address] Social History Tobacco Use Types Packs/Day Years Used Date Never Assessed Sex Assigned at Date Recorded Not on file documented as of this encounter Plan of Treatment Not on filedocumented as of this encounter Procedures Procedure Name Priority Date/Time Associated Comments Diagnosis HPV DETECTION, HIGH Routine 09/08/2003 13:25 Resu lts for this RISK TYPES EDT procedure are i n the results section. CYTOPATHOLOGY Routine 09/08/2003 0:00 Results for this EDT procedure are i n the results section. documented in this encounter Results HUMAN PAPILLOMA VIRUS DNA TEST (09/08/2003 13:25 EDT) Specimen Description Cervix, ThinPrep [facility] vial LAB Result Positive for one or more of HPV types 16,18,31,33,35,39,45,51,52,56,58,59, or 68. These ROWAN A LLEN high/intermediate risk HPV t ypes are associated with dysplasia and some cervical cancers. LAB Report Status Final [facility] [id number] LAB Specimen Performing Organization Address City/State/ZIP Code Phon e Number [facility] [address] [place] [address] SERVICES [facility] [address] [place] [address] CYTOPATHOLOGY (09/08/2003 0:00 EDT) Pathology Report: CYTOPATHOLOGY REPORT [facility] Reports generated via electronic interface contain audelia ginal data; however they are lacking the format of the original re port. Caution should be taken when reading/interpreting unfo rmatted reports. Name: ? REHAN FRITZ ? Accession #: ? [id number] : ? 1940 (Age: 63) ??F ?Collect Date: ? 08/24 Location: ? [facility] ? Receive Date : ? 09/09/2003 Provider: ?LUDY RUBIN MD Copy to: ? Specimen/Source: ?ThinPrep Pap Test, Cervix/ Endocervix Last Menstrual Period: ? Menstrual/ Status: ? Post Menopausal Previous Gynecologic Pathology: ? SKYE III: JESUS: ASC-US: 08/26 Treatment History: ? Colposcopy: LEEP: Miscellaneous treatment: Endometrial curettage 03/29 ? SPECIMEN ADEQUACY ? Satisfactory for Evaluation - transformation zone component present GENERAL CATEGORIZATION ? Epithelial Cell Abnormality INTERPRETATION ? Squamous Cell Abnormality - Atypical squamous c ells, undetermined significance. EDUCATIONAL NOTES/RECOMMENDATIONS ? [facility] recommends joni wing the 2001 Consensus Guidelines for the Management of Women with Cervical Cytological Abnormalities (JAM A,2002;287:2120-9). Management algorithms have b een distributed by [facility] and are available online at www.ASCCP.org. ? Document reviewed and electronically signed by: ? Sandra Rivera MD ? Report Date: ??09/14/2003 16:14 End of Report Specimen Performing Organization Address City/State/ZIP Code Phon e Number [facility] [address] [place] [address] SERVICES [facility] [address] [place] [address] documented in this encounter Visit Diagnoses Not on filedocumented in this encounter
--- OUTSIDE RECORDS SUMMARY | 2021-12-07 13:43 | XMS_ITS | Encounter Summary ---
:1940 Author Organization [facility] Address [address] [place] [address] Care Team Providers Name Role Phone Raquel Martin PA-C Primary Care Provider [phone] Reason for Visit Reason Onset Date Comments Appointment Related 10/11/2017 Encounter Details Date Type Department Care Team Description 10/11/2017 Telephone [facility] NEUROSURGE Dennis Gan MD Appointment Related 111 [facility] [address] [phone] [facility] [address] [place] [address] (Wo rk) Social History Tobacco [...] this encounter Miscellaneous Notes Telephone Encounter - HaynesIza - 10/12/2017 1107 EDT LM for Rehan with the following appointment details: 10/18/17 - [facility] Appointment at 2:30pm with Dr. Dennis [...] on filedocumented in this encounter Care Teams Rn Hospice Relationship Specialty Start Date End Date Raquel Martin PA-C PCP - General 08/28/17 [address] [place] [address] documented as of this encounter
--- OUTSIDE RECORDS SUMMARY | 2021-12-07 13:43 | XMS_ITS | Encounter Summary ---
:1940 Author Organization [facility] Address [address] [place] [address] Care Team Providers Name Role Phone Unavailable Primary Care Provider Unavailable Encounter Details Date Type Department Care Team Description 04/02/2003 Results Only [facility] - Anthony Rubin MD Maple conversion [address] [place] [address] [place] [address] Social History Tobacco Use Types Packs/Day Years [...] Comment: No endometrial tissue is identified. ??(Dr. Lantigua)/[facility] Document reviewed and electronically signed by: [...] Organization Address City/State/ZIP Code Phon e Number [facility] [address] [place] [address] SERVICES [facility] [address] [place] [address] documented in this encounter Visit Diagnoses Not on filedocumented in this encounter
--- OUTSIDE RECORDS SUMMARY | 2021-12-07 13:43 | XMS_ITS | Encounter Summary ---
:1940 Author Organization [facility] Address [address] [place] [address] Care Team Providers Name Role Phone Unavailable Primary Care Provider Unavailable Encounter Details Date Type Department Care Team Description 09/07/2006 Results Only [facility] - Anthony Rubin MD Maple conversion [address] [place] [address] [place] [address] Social History Tobacco Use Types Packs/Day Years [...] cancers. LAB Report Status Final [facility] [id number] LAB Specimen Performing Organization Address City/State/ZIP Code Phon e Number [facility] [address] [place] [address] SERVICES [facility] [address] [place] [address] CYTOPATHOLOGY (09/07/2006 0:00 EDT) Pathology Report: CYTOPATHOLOGY REPORT [facility] Reports generated via electronic interface contain audelia ginal data; however they are lacking the format of the original re port. Caution should be taken when reading/interpreting unfo rmatted reports. Name: ? REHAN FRITZ ? Accession #: ? [id number] : ? 1940 (Age: 66) ??F ?Collect Date: ? 08/24 Location: ? [facility] ? Receive Date : ? 09/10/2006 Provider: ?LUDY RUBIN MD Copy to: ? Specimen/Source: ? ThinPrep Pap Test, Cervix/Endocervix, processed on Matches Fashion ThinPrep Imaging System, with manual evaluation Last [...] significance (ASC-US). EDUCATIONAL NOTES/RECOMMENDATIONS ? [facility] recommends joni wing the 2001 Consensus Guidelines for the Management of Women with Cervical Cytological Abnormalities (JAM A,2002;287:2120-9). Management algorithms have b een distributed by [facility] and are available online at www.ASCCP.org. ? Document reviewed and electronically signed by: ? TERESA BETANCOURT MD ? Report Date: ??09/17/2006 09:36 End of Report Specimen Performing Organization Address City/State/ZIP Code Phon e Number [facility] [address] [place] [address] SERVICES [facility] [address] [place] [address] documented in this encounter Visit Diagnoses Not on filedocumented in this encounter
--- OUTSIDE RECORDS SUMMARY | 2021-12-07 13:43 | XMS_ITS | Encounter Summary ---
:1940 Author Organization [facility] Address [address] [place] [address] Care Team Providers Name Role Phone Raquel Martin PA-C Primary Care Provider [phone] Reason for Visit Reason Comments Eye Problem Visual field defect.?Here for CT scan review.?No eye pain, flashing, floaters.?Umberto nues to have darkening of vision centrally left eye.?Right eye edwardo joya. Encounter Details Date Type Department Care Team Description 09/14/2017 Office Visit [facility] Sohail Chaudhry, Ophthalmology - [facility] [address] [address] [place], [place] [address] (Wo rk) Social History Tobacco [...] Beltre MD - 09/14/2017 0000 EDT [facility] [...] or concerns. Sohail Chaudhry MD Diplomate, the [place] [employer] & Neurology pediatric geneticist Department of Ophthalmology NEURO-OPHTHALMOLOGY cc: Raquel Martin PA-C, [address] [address] documented in this encounter Plan of Treatment [...] Oriented x3: Yes Mood/Affect: Normal Care Teams Stripper Machine Operator Relationship Specialty Start Date End Date Raquel Martin PA-C PCP - General 08/28/17 [address] [place] [address] documented as of this encounter
--- OUTSIDE RECORDS SUMMARY | 2021-12-07 13:43 | XMS_ITS | Encounter Summary ---
:1940 Author Organization [facility] Address [address] [place] [address] Care Team Providers Name Role Phone Raquel Martin PA-C Primary Care Provider [phone] Reason for Visit Reason Onset Date Comments Other 11/09/2017 CONFIRM SURGERY Encounter Details Date Type Department Care Team Description 11/09/2017 Telephone [facility] Dennis Henao Ot her (CONFIRM Neurosurgery - Main MD SURGERY) [place] [address] [place] [address] [facility] Level [address] [place] [address] (Wo rk) Social History [...] Notes Telephone Encounter - Iza Haynes - 11/09/2017 1047 EDT Confirmed the following details with Rehan for her surgery on 11/12/[address] Dennis Henao Check in at 6am at registration - located on level 3 Surgery at 7:30am Stop clear liquids at 3:30am No solids after midnight Rehan verbalized understanding and denied having any questions. documented in this encounter Plan of Treatment Not on filedocumented as of this encounter Visit Diagnoses Not on filedocumented in this encounter Care Teams Conference And Event Organiser Relationship Specialty Start Date End Date Raquel Martin PA-C PCP - General 08/28/17 [address] [place] [address] documented as of this encounter
--- OUTSIDE RECORDS SUMMARY | 2021-12-07 13:43 | XMS_ITS | Encounter Summary ---
:[address] [facility] Address [address] [place] [address] Care Team Providers Name Role Phone Unknown, Provider Primary Care Provider Encounter Details Date Type Department Care Team Description 02/09/2016 Results Only [facility]- Samara Milan MD [phone] [address] [address] Social History Tobacco Use Types Packs/Day Years [...] THINPREP (02/09/2016 13:20 EST) Specimen Source Endocerv[facility] HPV type 16, PCR Test not indicated, [facility] R credit issued. LABORATORY SERVICES HPV type 18, PCR Test not indicated, [facility] R credit issued. LABORATORY SERVICES HPV other types, Test not indicated, [facility] R PCR credit issued. LABORATORY SERVICES Specimen Other Performing Organization Address City/State/ZIP Code Phon e Number [facility] [address] [place] [address] SERVICES PAP TEST- RESULT ONLY (02/09/2016 0:00 EST) Pathology Report: CYTOPATHOLOGY REPORT [facility] Reports generated via electronic interface contain audelia ginal data; SERVICES however they are lacking the format of the original re port. Caution should be taken when reading/interpreting unfo rmatted reports. Name: ? REHAN FRITZ ? Accession #: ? [id number] ? : ? 1940 (Age: 75 ) [...] 8,31, 33,35,39,45,51,52,56,58,59,66, and 68 is detected by cruise agent mediated amplification. High and intermediate risk HPV [...] Organization Address City/State/ZIP Code Phon e Number [facility] [address] [place] [address] SERVICES documented in this encounter Visit Diagnoses Not on filedocumented in this encounter Care Teams Coater Smoking Pipe Relationship Specialty Start Date End Date Unknown, Provider, PCP - General 06/30/11 08/27/17 documented as of this encounter
--- OUTSIDE RECORDS SUMMARY | 2021-12-07 13:43 | XMS_ITS | Encounter Summary ---
:1940 Author Organization [facility] Address [address] [place] [address] Care Team Providers Name Role Phone Unavailable Primary Care Provider Unavailable Encounter Details Date Type Department Care Team Description 08/26/2002 Results Only [facility] - Nimesh Castelan MD conversion [address] [place] [address] Social History Tobacco Use Types Packs/Day Years [...] REHAN FRITZ ? Accession #: ? [id number] : ? 1940 (Age: 62) ??F ?Collect [...] c ells, undetermined significance. EDUCATIONAL NOTES/RECOMMENDATIONS ? [facility] recommends joni wing the 2001 Consensus Guidelines for the Management of Women with Cervical Cytological Abnormalities (JAM [place],2002;287:2120-9). Management algorithms have b een distributed by [facility] and are available online at www.ASCCP.org. ? Document reviewed and electronically signed by: ? TERESA BETANCOURT MD ? Report Date: ??09/01/2002 13:59 End of Report Specimen Performing Organization Address City/State/ZIP Code Phon e Number [facility] [address] [place] [address] SERVICES [facility] [address] [place] [address] documented in this encounter Visit Diagnoses Not on filedocumented in this encounter
--- OUTSIDE RECORDS SUMMARY | 2021-12-07 13:43 | XMS_ITS | Encounter Summary ---
:1940 Author Organization [facility] Address [address] [place] [address] Care Team Providers Name Role Phone Raquel Martin PA-C Primary Care Provider [phone] Reason for Visit Reason Onset Date Comments Appointment Related 09/18/2017 Encounter Details Date Type Department Care Team Description 09/18/2017 Telephone [facility] Sohail Chaudhry ent Related Ophthalmology - Paddy Vasquez MD [address] [phone] [facility] Level [address] [place] [address] (Wo rk) Social History Tobacco Use Types Packs/Day Years Used Date Former Smoker Quit: 08/29/19 07 Smokeless Tobacco: Never Used Alcohol Use Standard Drinks/Week Comments No 0 (1 standard drink = 0.6 oz pure alcoho l) Sex Assigned at Date Recorded Not on file documented as of this encounter Miscellaneous Notes Telephone Encounter - Kristine Arguello - 10/04/2017 0852 EDT Returned Rehan's call and answered her questions in regards to her cerebral angiogram on Tuesday 10/10. elephone Encounter - Eileen Hart - 09/18/2017 1417 EDT Called pt after speaking with Dr Chaudhry. Isidoro will be speaking with neurosurgery about a referral. Spoke to pt and told her to expect a call nest week from the neurosurgery department. elephone Encounter - Marilee Kailee - 09/18/2017 1241 EDT Patient called asking when she would hear back from Dr. Chaudhry about seeing a neuro surgeon. She is very anxious about getting this set up and or what she should expect. I did explain that I could hear that she was anxious and nervous about this but it could take a day or two or even a week to get it all set up for her. I have full confidence that Dr. Chaudhry is not going to forget about her, which she is concerned about. She doesn't want to not know when she should expect things to happen. I told her I would let Dr. Chaudhry know she called and also his day care assistant Eileen. documented in this encounter Plan of Treatment Not on filedocumented as of this encounter Visit Diagnoses Not on filedocumented in this encounter Care Teams Supervisor Fertilizer Relationship Specialty Start Date End Date Raquel Martin PA-C PCP - General 08/28/17 [address] [place] [address] documented as of this encounter
--- OUTSIDE RECORDS SUMMARY | 2021-12-07 13:43 | XMS_ITS | Encounter Summary ---
:1940 Author Organization [facility] Address [address] [place] [address] Care Team Providers Name Role Phone Unavailable Primary Care Provider Unavailable Encounter Details Date Type Department Care Team Description 03/11/2004 Results Only [facility] - Anthony Rubin MD Maple conversion [address] [place] [address] [place] [address] Social History Tobacco Use Types Packs/Day Years [...] REHAN FRITZ ? Accession #: ? [id number] : ? 1940 (Age: 63) ??F ?Collect [...] c ells, undetermined significance. EDUCATIONAL NOTES/RECOMMENDATIONS ? [facility] recommends joni wing the 2001 Consensus Guidelines for the Management of Women with Cervical Cytological Abnormalities (JENNY Cross,2002;287:2120-9). Management algorithms have b een distributed by [facility] and are available online at www.ASCCP.org. ? Document reviewed and electronically signed by: ? ANTONETTE BRYANT MD ? Report Date: ??03/22/2004 11:44 End of Report Specimen Performing Organization Address City/State/ZIP Code Phon e Number [facility] [address] [place] [address] SERVICES [facility] [address] [place] [address] documented in this encounter Visit Diagnoses Not on filedocumented in this encounter
--- OUTSIDE RECORDS SUMMARY | 2021-12-07 13:43 | XMS_ITS | Encounter Summary ---
:1940 Author Organization [facility] Address [address] [place] [address] Care Team Providers Name Role Phone Unknown, Provider Primary Care Provider Encounter Details Date Type Department Care Team Description 07/11/[address] [facility]- Samara Milan MD [phone] [address] [facility] [place] [place] [address] Social History Tobacco Use Types Packs/Day Years [...] (07/11/2016 0:00 EDT) Pathology Report: CYTOPATHOLOGY REPORT [facility] Reports generated via electronic interface contain audelia ginal data; SERVICES however they are lacking the format of the original re port. Caution should be taken when reading/interpreting unfo rmatted reports. Name: ? REHAN FRITZ ? Accession #: ? [id number] ? : ? 1940 (Age: 76 ) [...] types 16,18,31,3 3,35, 39,45,51,52,56,58,59,66, and 68 by water treatment plant supervisor media ivis amplification. Comments Document reviewed and [...] Code Phon e Number [facility] [address] [place] [address] SERVICES documented in this encounter Visit Diagnoses Not on filedocumented in this encounter Care Teams Post Anesthesia Care Unit Nurse Relationship Specialty Start Date End Date Unknown, Provider, PCP - General 06/30/11 08/27/17 documented as of this encounter
--- OUTSIDE RECORDS SUMMARY | 2021-12-07 13:43 | XMS_ITS | Encounter Summary ---
:1940 Author Organization [facility] Address [address] [place] [address] Care Team Providers Name Role Phone Unknown, Provider Primary Care Provider Encounter Details Date Type Department Care Team Description 01/28/2015 Results Only [facility]- Samara Milan MD [phone] [address] [place] [address] Social History Tobacco Use Types Packs/Day Years Used Date Never Assessed Sex Assigned at Date Recorded Not on file documented as of this encounter Plan of Treatment Not on filedocumented as of this encounter Procedures Procedure Name Priority Date/Time Associated Diagnosis Comme nts PAP TEST- RESULT Routine 01/28/2015 0:00 EST Resu lts for this ONLY procedure are i n the results section. documented in this encounter Results PAP TEST- RESULT ONLY (01/28/2015 0:00 EST) Pathology Report: CYTOPATHOLOGY REPORT [facility] Reports generated via electronic interface contain audelia ginal data; SERVICES however they are lacking the format of the original re port. Caution should be taken when reading/interpreting unfo rmatted reports. Name: ? REHAN FRITZ ? Accession #: ? [id number] ? : ? 1940 (Age: 74 ) ??F ?Collect Date: ? 01/28/2015 ? Location: ? [facility] ? Receive Date: ? 01/30/20 15 ? Provider: SAMARA BLANCO MD Copy to: CLAY GAMA PA-C ? Final Report SPECIMEN ADEQUACY ? Satisfactory for Evaluation - assessment of transformation zone component not appl icable ( e.g. atrophy, vaginal sample, hysterectomy) GENERAL CATEGORIZATION ? Negative for Intraepithelial Lesion or Malignan cy INTERPRETATION ? Reactive cellular willis nges associated with inflammation present (includes repair). Previous Gynecologic Pathology: SKYE II: H/O Specimen/Source: ??Pap Test, Cervix/Endocervix, ThinPr ep Imaging System with manual evaluation Document reviewed and electronically signed by: ? TORRIE GANT MD PHD ? Report ??Date: 02/05/2015 11:58 HPV with Pap Test ? Date Ordered: ? 02/05/2015 ? Status: ?? Signed Out ?Date Complete: ? 02/09/2015 ? By: ??S ystem Interface ? Date Reported: ? 02/09/2015 ? Interpretation RESULT: Positive for high or intermediate risk HPV. E6 OR E7 mRNA from one or more types of HPV types 16,1 8,31, 33,35,39,45,51,52,56,58,59,66, and 68 is detected by exercise teacher mediated amplification. High and intermediate risk HPV types are associated wi th most squamous intraepithelial lesions and cervical can cers. Comments Document reviewed and electronically signed by: ? System Interface ? Report date: 02/09/2015 By the signature above, the attending physician certif ies that he/she has personally conducted a gross and/or microscopic examin ation of the described specimens and rendered or confirmed the above diagnosi s. End of Report Specimen Performing Organization Address City/State/ZIP Code Phon e Number [facility] [address] [place] [address] SERVICES documented in this encounter Visit Diagnoses Not on filedocumented in this encounter Care Teams Adzing And Boring Machine Operator Relationship Specialty Start Date End Date Unknown, Provider, PCP - General 06/30/11 08/27/17 documented as of this encounter
--- OUTSIDE RECORDS SUMMARY | 2021-12-07 13:43 | XMS_ITS | Encounter Summary ---
:1940 Author Organization [facility] Address [address] [place] [address] Care Team Providers Name Role Phone Unavailable Primary Care Provider Unavailable Encounter Details Date Type Department Care Team Description 04/20/2009 Orders Only [facility] Samara Rubin MD Laboratory Services - [address] [place] [address] [place] [address] Social History Tobacco Use Types Packs/Day [...] City/State/ZIP Code Phon e Number [facility] [address] [place] [address] SERVICES [facility] [address] [place] [address] CYTOPATHOLOGY (04/20/2009 0:00 EST) Pathology Report: CYTOPATHOLOGY REPORT ? [facility] Reports generated via electr onic interface contain original data; ? however they are lacking the format of the original report. ? Caution should be taken when reading/interpreting unformatted reports. ? Name: ? REHAN FRITZ ? Accession #: ? [id number] ? : ? 1940 (Age: 68) ??F [...] and electr onically signed by: ? Silvia Grant, CT( CP) ? Report Date: ??01/28/ 2010 10:14 ? End of Report ? Specimen Performing Organization Address City/State/ZIP Code Phon e Number [facility] [address] [place] [address] SERVICES [facility] [address] [place] [address] documented in this encounter Visit Diagnoses Not on filedocumented in this encounter
--- OUTSIDE RECORDS SUMMARY | 2021-12-07 13:43 | XMS_ITS | Clinical Summary ---
:1940 Author Organization [facility] [place] [address] Care Team Providers Name Role Phone Unknown [...] Addre ss Type Group MEDICARE MEDICARE PART [id number] 2009-Mickie [phone] [facility] [place] [address] MEDICAID IN [place]ICA[place] [id number] 2019-Meaghan [phone] [address] [place] [address] Guarantor Name Account Type Relation to Date of Phone Bill ing Patient Address Rehan Gann Agnieszka Personal/Family Self 1940 [address] (Home) [address] [place] [address] Care Teams Maintenance Mechanic Millwright Relationship Specialty Start Date End Date Unknown PCP - General 11/12/19 None
--- OUTSIDE RECORDS SUMMARY | 2021-12-07 13:43 | XMS_ITS | Encounter Summary ---
:1940 Author Organization [facility] Address [address] [place] [address] Care Team Providers Name Role Phone Raquel Martin PA-C Primary Care Provider [phone] Encounter Details Date Type Department Care Team Description 11/07/2017 Pre-Procedure [facility] Najoby, Carmen Cerebra l aneurysm, Orders Encounter Neurosurgery - [facility] ANGEL Eagle nonruptured [place] [address] [place] [address] (Primary Dx) [address] [place], [place] [address] [place], [place] [address] [place] [phone] Social History Tobacco Use Types Packs/Day Years [...] Primary documented in this encounter Care Teams Intraoperative Neuro Tech Relationship Specialty Start Date End Date Raquel Martin PA-C PCP - General 08/28/[address] [place] [address] documented as of this encounter
--- OUTSIDE RECORDS SUMMARY | 2021-12-07 13:43 | XMS_ITS | Encounter Summary ---
:1940 Author Organization [facility] Address [address] [place] [address] Care Team Providers Name Role Phone Unavailable Primary Care Provider Unavailable Encounter Details Date Type Department Care Team Description 03/10/2003 Results Only [facility] - Nimesh Castelan MD conversion [address] [place] [address] Social History Tobacco Use Types Packs/Day Years Used Date Never Assessed Sex Assigned at Date Recorded Not on file documented as of this encounter Plan of Treatment Not on filedocumented as of this encounter Procedures Procedure Name Priority Date/Time Associated Diagnosis Comme nts CYTOPATHOLOGY Routine 03/10/2003 0:00 EST Results for this procedure are i n the results section . documented in this encounter Results CYTOPATHOLOGY (03/10/2003 0:00 EST) Pathology Report: CYTOPATHOLOGY REPORT [facility] Reports generated via electronic interface contain audelia ginal data; however they are lacking the format of the original re port. Caution should be taken when reading/interpreting unfo rmatted reports. Name: ? REHAN FRITZ ? Accession #: ? [id number] : ? 1940 (Age: 62) ??F ?Collect Date: ? 02/23 Location: ? [facility] ? Receive Date : ? 03/11/2003 Provider: ?NIMESH LYLES MD Copy to: ? Specimen/Source: ?ThinPrep Pap Test, Cervix/ Endocervix Last Menstrual Period: ? years Previous Gynecologic Pathology: ? SKYE III: JESUS: ASC-US: 08/26 Treatment History: ? Colposcopy: LEEP: ? SPECIMEN ADEQUACY ? Satisfactory for Evaluation - transformation zone component present GENERAL CATEGORIZATION ? Negative for Intraepithelial Lesion or Malignan cy ? Document reviewed and electronically signed by: ? ROC Higginbotham(ASCP) ? Report Date: ??03/12/2003 09:48 End of Report Specimen Performing Organization Address City/State/ZIP Code Phon e Number [facility] [address] [place] [address] SERVICES [facility] [address] [place] [address] documented in this encounter Visit Diagnoses Not on filedocumented in this encounter
--- OUTSIDE RECORDS SUMMARY | 2021-12-07 13:43 | XMS_ITS | Encounter Summary ---
:1940 Author Organization [facility] Address [address] [place] [address] Care Team Providers Name Role Phone Raquel Martin PA-C Primary Care Provider [phone] Reason for Visit Reason Onset Date Comments Appointment Related 10/01/2017 Appointment Related 10/01/2017 cerebral angiogram Encounter Details Date Type Department Care Team Description 10/01/2017 Telephone [facility] Dennis Henao Ap pointment Related; Neurosurgery - Main MD Appointment Related [address] (cerebral angiogram ) [address] [place] [address] Pool, [address] [place] [address] (Wo rk) Social History Tobacco [...] Telephone Encounter - Kristine Arguello - 10/01/2017 3017 EDT Called and spoke with Rehan in regards to scheduling their cerebral angiogram requested by Dr. Henao. Ms. Gann will be coming in on Tuesday 10/10 @ 700AM, checking in at 645AM with a bobcat driver/labor. They understand that they will need a bobcat driver/labor, and that they should plan on being [...] on filedocumented in this encounter Care Teams Anesthesia Attending Relationship Specialty Start Date End Date Raquel Martin PA-C PCP - General 08/28/17 [address] [place] [address] documented as of this encounter
--- OUTSIDE RECORDS SUMMARY | 2021-12-07 13:43 | XMS_ITS | Encounter Summary ---
:1940 Author Organization [facility] [place] [address] Care Team Providers Name Role Phone Raquel Martin Primary Care Provider Reason for Visit Reason Comments Follow-up Skin Check Encounter Details Date Type Department Care Team Description 04/18/2018 Office Visit Dermatology at [facility] Niko Mars MD Xerosis cutis; [address] [place] [address] [place] [address] [place] [address] [phone] (Wo rk) Social History Tobacco Use Types [...] cerebral aneurysm repair in October 2017 at [facility]. There was been no change [...] disorder documented in this encounter Care Teams Cosmetologist Relationship Specialty Start Date End Date Raquel Martin PA PCP - General 02/26/12 11/11/19 [address] [place] [address] documented as of this encounter
--- OUTSIDE RECORDS SUMMARY | 2021-12-07 13:43 | XMS_ITS | Encounter Summary ---
:1940 Author Organization [facility] Address [address] [place] [address] Care Team Providers Name Role Phone Unknown, Provider Primary Care Provider Encounter Details Date Type Department Care Team Description 12/07/2011 Results Only [facility] Samara Rubin MD Laboratory Services - [address] [place] [address] [place] [address] Social History Tobacco Use Types Packs/Day [...] REHAN FRITZ ? Accession #: ? [id number] : ? 1940 (Age: 71) ??F ?Collect [...] City/State/ZIP Code Phon e Number [facility] [address] [place] [address] SERVICES [facility] [address] [place] [address] documented in this encounter Visit Diagnoses Not on filedocumented in this encounter Care Teams Drain Layer Relationship Specialty Start Date End Date Unknown, Provider, PCP - General 06/30/11 08/27/17 documented as of this encounter
--- OUTSIDE RECORDS SUMMARY | 2021-12-07 13:43 | XMS_ITS | Encounter Summary ---
:1940 Author Organization [facility] [place] [address] Care Team Providers Name Role Phone Raquel Martin Primary Care Provider Reason for Visit Reason Comments Skin Lesion Encounter Details Date Type Department Care Team Description 02/26/2012 Office Visit Dermatology Niko Mars, Seborrheic keratosis [address] [facility] (Primary Dx) [address] [place], [place] DERMATOLOGY [address] [place] [address] [phone] (Wo rk) Social History Tobacco Use Types Packs/Day Years Used Date Never Smoker Sex Assigned at Date Recorded Not on file documented as of this encounter Progress Notes Niko Mars MD - 02/26/2012 11:02 AM EST Problem: Back lesion. Rehan follows up after last being seen by me in December 2007. She is now followed by Raquel [place] and Dr. Smith at the [facility] and desires to have her [...] keratosis documented in this encounter Care Teams Caser Shoe Parts Relationship Specialty Start Date End Date Raquel Martin PA PCP - General 02/26/12 11/11/19 [address] [place] [address] documented as of this encounter
--- OUTSIDE RECORDS SUMMARY | 2021-12-07 13:43 | XMS_ITS | Encounter Summary ---
:1940 Author Organization [facility] Address [address] [place] [address] Care Team Providers Name Role Phone Raquel Martin PA-C Primary Care Provider [phone] Encounter Details Date Type Department Care Team Description 10/01/2017 Pre-Procedure [facility] Chau Martinez Encounter Interventional Radiology Marga devi PA-C [address] [place] [address], [facility] [address] [place] [address] (Wo rk) Social History Tobacco [...] on filedocumented in this encounter Care Teams Solar Energy Installation Manager Relationship Specialty Start Date End Date Raquel Martin PA-C PCP - General 08/28/17 [address] [place] [address] documented as of this encounter
--- OUTSIDE RECORDS SUMMARY | 2021-12-07 13:43 | XMS_ITS | Encounter Summary ---
:1940 Author Organization [facility] Address [address] [place] [address] Care Team Providers Name Role Phone Unavailable Primary Care Provider Unavailable Encounter Details Date Type Department Care Team Description 06/22/2011 Results Only [facility] Samara Rubin MD Laboratory Services - [address] [place] [address] [place] [address] Social History Tobacco Use Types Packs/Day [...] REHAN FRITZ ? Accession #: ? [id number] : ? 1940 (Age: 71) ??F ?Collect [...] undetermined significance (ASC-US). EDUCATIONAL NOTES/RECOMMENDATIONS ? [facility] recommends joni sutton the 2006 Consensus Guidelines for the Management of Women with Abnormal Cervical Cancer Screening Tests (JLGTD, 2007;11(4):201-222). ??Consensus guidelines are availa ble online at www.ASCCP.org. ? Document reviewed and electronically signed by: ? ANTONIO NINO MD ? Report Date: ??06/28/2011 15:55 End of Report Specimen Performing Organization Address City/State/ZIP Code Phon e Number [facility] [address] [place] [address] SERVICES [facility] [address] [place] [address] documented in this encounter Visit Diagnoses Not on filedocumented in this encounter
--- OUTSIDE RECORDS SUMMARY | 2021-12-07 13:43 | XMS_ITS | Encounter Summary ---
:1940 Author Organization [facility] Address [address] [place] [address] Care Team Providers Name Role Phone Raquel Martin PA-C Primary Care Provider [phone] Reason for Visit Reason Comments Follow-up aneurysm, IR 10/10/17 Encounter Details Date Type Department Care Team Description 10/18/2017 Office Visit [facility] Dennis Henao Ce rebral aneurysm, Neurosurgery - Main nonruptured (Primary [place] [address] [place] [address]) [address] [place], [place] [address] [place] [address] [address], [address] [place] [phone] (Wo rk) Social History Tobacco Use Types [...] 4 PM, Sunday through Sunday. Triage line [phone]. 17. After hours, there is always a doctor oncology consultant for emergencies or go to your local [...] Bishop MD - 10/18/2017 0000 EDT [facility] NEUROLOGICAL SURGERY PROGRESS / FOLLOWUP NOTE - 10/18/2017 Raquel Martin PA-C [address] [address] Dear Veronica: I had the pleasure of seeing your patient, Rehan Gann, back in my neurosurgery office at [facility] on 10/18/2017. She is known to have [...] - Dennis Henao MD an Dictation ID: [id number] cc: Raquel Martin PA-C, [facility] [address] [place] [address] Sohail Chaudhry MD, [facility] - Ophthalmology [address] [place] [id number] signed by Dennis Henao MD at 10/20/2017 10:35 EDTdocumented in this encounter Plan of Treatment Not on filedocumented as of this encounter Visit Diagnoses Diagnosis Cerebral aneurysm, nonruptured - Primary documented in this encounter Care Teams Central Office Repairer Relationship Specialty Start Date End Date Raquel Martin PA-C PCP - General 08/28/17 [address] [place] [phone] documented as of this encounter
--- OUTSIDE RECORDS SUMMARY | 2021-12-07 13:43 | XMS_ITS | Encounter Summary ---
:1940 Author Organization [facility] Address [address] [place] [address] Care Team Providers Name Role Phone Unavailable Primary Care Provider Unavailable Encounter Details Date Type Department Care Team Description 09/05/2005 Results Only [facility] - Anthony Rubin MD Maple conversion [address] [place] [address] [place] [address] Social History Tobacco Use Types Packs/Day Years Used Date Never Assessed Sex Assigned at Date Recorded Not on file documented as of this encounter Plan of Treatment Not on filedocumented as of this encounter Procedures Procedure Name Priority Date/Time Associated Diagnosis Comme nts CYTOPATHOLOGY Routine 09/05/2005 0:00 EDT Results for this procedure are i n the results section . documented in this encounter Results CYTOPATHOLOGY (09/05/2005 0:00 EDT) Pathology Report: CYTOPATHOLOGY REPORT [facility] Reports generated via electronic interface contain audelia ginal data; however they are lacking the format of the original re port. Caution should be taken when reading/interpreting unfo rmatted reports. Name: ? REHAN FRITZ ? Accession #: ? [id number] : ? 1940 (Age: 65) ??F ?Collect Date: ? 08/24 Location: ? [facility] ? Receive Date : ? 09/07/2005 Provider: ?LUDY RUBIN MD Copy to: ? Ladklaudia First ?[facility] ?[address] ?[place], [place] [address] ? Specimen/Source: ? ThinPrep Pap Test, Cervix/Endocervix, processed on [employer] ThinPrep Imaging System, with manual evaluation Last Menstrual Period: ? Menstrual/ Status: ? Post Menopausal Previous Gynecologic Pathology: ? SKYE III: JESUS: ASC-US: 08/26,08/27 and 02/26 HPV: 08/27 and 02/26 Treatment History: ? Colposcopy: LEEP: Miscellaneous treatment: Endocervical cautery ? SPECIMEN ADEQUACY ? Satisfactory for Evaluation - transformation zone component present GENERAL CATEGORIZATION ? Negative for Intraepithelial Lesion or Malignan cy INTERPRETATION ? Reactive cellular willis nges associated with inflammation present (includes repair). ? Document reviewed and electronically signed by: ? Butch Tinoco MD ? Report Date: ??09/12/2005 13:27 End of Report Specimen Performing Organization Address City/State/ZIP Code Phon e Number [facility] [address] [place] [address] SERVICES [facility] [address] [place] [address] documented in this encounter Visit Diagnoses Not on filedocumented in this encounter
--- OUTSIDE RECORDS SUMMARY | 2021-12-07 13:43 | XMS_ITS | Encounter Summary ---
:1940 Author Organization [facility] Address [address] [place] [address] Care Team Providers Name Role Phone Raquel Martin PA-C Primary Care Provider [phone] Reason for Referral Radiology Services (3 - 10 Business Days) - Specialty Report Received Specialty Diagnoses / Procedures Referred By Contact Refer red To Contact Diagnoses Visual field defect Sohail Chaudhry MD Procedures CT ORBITS W/WO CONTRAST [address] [phone] Referral ID Status Reason Start Date Expiration Date Visits V isits Requested Authorized [id number] Specialty 08/28/2017 1 1 Report Received adiology Services (3 - 10 Business Days) - Specialty Report Received Specialty Diagnoses / Procedures Referred By Contact Refer red To Contact Diagnoses Visual field defect Sohail Chaudhry MD Procedures CT HEAD W/WO CONTRAST [address] [phone] Referral ID Status Reason Start Date Expiration Date Visits V isits Requested Authorized [id number] Specialty 08/28/2017 1 1 Report Received (Routine) - New Request Specialty Diagnoses / Procedures Referred By Contact Refer red To Contact Diagnoses Visual field defect Sohail Chaudhry MD Procedures VISUAL FIELD EXAM, INTERMEDIATE [address] [phone] Referral ID Status Reason Start Date Expiration Date Visits V isits Requested Authorized [id number] New Request 08/28/2017 1 1 (Routine) - New Request Specialty Diagnoses / Procedures Referred By Contact Refer red To Contact Diagnoses Visual field defect Sohail Chaudhry MD Procedures OCT (OPHTHALMIC DIGITAL IMAGING, POSTERIOR SEGMENT) [address] [place], [place] [phone] Referral ID Status Reason Start Date Expiration Date Visits V isits Requested Authorized [id number] New Request 08/28/2017 1 1 Reason for [...] Contact Ophthalmology Alison Barreto, MARCO Wp[address] Ophthalmology [address] [place] [address] ,[place] [address] Fax: Referral ID Status Reason Start Expiration Visits Visits Date Date Requested Authorized [id number] Authorization Not 1 1 Required Encounter Details Date Type Department Care Team Description 08/28/2017 Office Visit [facility] Sohail Chaudhry, Ophthalmology - Paddy BARRAZA [place] [address] [phone] [place] [address] (Wo rk) Social History Tobacco [...] Chaudhry MD - 08/28/2017 0000 EDT [facility] NEURO-OPHTHALMOLOGY CONSULTATION - 08/28/2017 Alison Barreto OD [address] [employer], an [employer] [facility], [place], [address] [place] [address] REASON FOR CONSULTATION: 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 Her surgical historyincludes a tubal ligation and bilateral cataract extraction as noted above. The social history reveals that the patient has greater than 46-ndng-cplj history of smoking and quit approximately 10 [...] interval. Sincerely, Sohail Chaudhry MD Diplomate, the [place] [employer] field application engineer Department of Ophthalmology NEURO-OPHTHALMOLOGY cc: Zabrina Ambriz MD, [facility] [address] [facility], [place] [address] Alison Barreto OD, [address], [address], [place] [address] Veronica Caban PA, [address] [facility], [place] [address] ( ) ADDENDUM: The patient's B12 level [...] Anatomical Region Laterality Modality Other Specimen Narrative [facility] - 09/14/2017 12:[address] HEAD W/WO CONTRAST, CT ORBITS W/WO CONTRAST ??09/14/2017 9:33 AM CLINICAL HISTORY: H53.40-Unspecified vis ual field [id number]; bi-temporal visual field defects COMPARISON: No relevant [...] AM CLINICAL HISTORY: H53.40-Unspecified vis ual field [id number]; bi-temporal visual field defects COMPARISON: No relevant [...] Organization Address City/State/ZIP Code Phon e Number [facility] CT HEAD W/WO CONTRAST (09/14/2017 9:33 EDT) Anatomical Region Laterality Modality Other Specimen Narrative [facility] - 09/14/2017 12:[address] HEAD W/WO CONTRAST, CT ORBITS W/WO CONTRAST ??09/14/2017 9:33 AM CLINICAL HISTORY: H53.40-Unspecified vis ual field [id number]; bi-temporal visual field defects COMPARISON: No relevant [...] AM CLINICAL HISTORY: H53.40-Unspecified vis ual field [id number]; bi-temporal visual field defects COMPARISON: No relevant [...] Organization Address City/State/ZIP Code Phon e Number [facility] (ABNORMAL) HOMOCYSTEINE (08/28/2017 11:09 EDT) Homocysteine 25.0 (H) 4.5 - 12.4 [facility] Comment: umol/L LABORATORY Results may be falsely [...] specimen (specimen) - Blood Performing Organization Address City/[facility] Code Phon e Number [facility] [address] [place] [address] SERVICES PROTEIN S ACTIVITY (08/28/2017 11:09 EDT) Protein S 147 64 - 147 % [facility] Activity Comment: LABORATORY SERVICES a. ??Acquired Protein [...] specimen (specimen) - Blood Performing Organization Address City/[facility]/ZIP Code Phon e Number [facility] [address] [place] [address] SERVICES (ABNORMAL) HEMAGRAM AND DIFFERENTIAL (08/28/2017 11:09 EDT) Pathologist Sig nature WBC 4.32 4.0 - 12.4 [facility] K/[facility] LABORATORY SERVICES RBC 4.13 3.86 - 5.04 [facility] M/[facility] LABORATORY SERVICES Hemoglobin 12.9 11.6 - 15.2 [facility] gm/dl LABORATORY SERVICES HCT 38.8 34.9 - 44.4 % [facility] LABORATORY SERVICES MCV 94 81 - 98 fl [facility] LABORATORY SERVICES MCH 31.2 26.7 - 33.3 pg [facility] LABORATORY SERVICES MCHC 33.2 32.1 - 35.9 [facility] gm/dl LABORATORY SERVICES RDW-CV 12.5 <14.7 % [facility] LABORATORY SERVICES RDW-SD 43.6 <50.4 fl [facility] LABORATORY SERVICES PLT 231 141 - 377 K/[facility] LABORATORY SERVICES MPV 9.6 9.5 - 12.7 fl [facility] LABORATORY SERVICES Neutrophils 66.9 % [facility] LABORATORY SERVICES Lymphocytes 22.9 % [facility] LABORATORY SERVICES Monocytes 8.8 % [facility] LABORATORY SERVICES Eosinophils 0.7 % [facility] LABORATORY SERVICES Basophils 0.5 % [facility] LABORATORY SERVICES Immature Grans 0.2 % [facility] LABORATORY SERVICES ABS Neutrophils 2.89 2.20 - 8.85 [facility] K/[facility] LABORATORY SERVICES ABS Lymphs 0.99 (L) 1.09 - 3.30 [facility] K/[facility] LABORATORY SERVICES ABS Monocytes 0.38 0.1 - 0.8 /[facility] LABORATORY SERVICES ABS Eosinophils 0.03 0.03 - 0.61 [facility] K/[facility] LABORATORY SERVICES ABS Basophils 0.02 0.01 - 0.11 [facility] K/[facility] LABORATORY SERVICES ABS Immature Grans 0.01 0 - 0.06 /[facility] LABORATORY SERVICES Type of Diff: Automated [facility] LABORATORY SERVICES Specimen Blood specimen (specimen) - Blood Performing Organization Address City/[facility]/ZIP Code Phon e Number [facility] [address] [place] [address] SERVICES SYPHILIS SEROLOGY (08/28/2017 11:09 EDT) Syphilis Serology NegativeComment: [facility] Reference Range: LABORATORY SERVICES Negative Specimen Blood specimen (specimen) - Blood Performing Organization Address [facility] Phon e Number [facility] [address] [place] [address] SERVICES ANGIOTENSIN CONVERTING ENZYME (DES) (08/28/2017 11:09 EDT) Angiotensin 17 8 - 53 U/L [facility] Converting Enzyme Comment: LABORATORY Performed or Referred by: [facility], [address] [place] [address], Lab Dir: Nimesh Osorio I I, M.D., Ph.D. Specimen Blood specimen (specimen) - Blood Performing Organization Address [facility] Phon e Number [facility]ORY [address] [place] [address] SERVICES SED. RATE:WESTERGREN (08/28/2017 11:09 EDT) Pathologist Sig nature Sed. Rate Westergren 2 0 - 30 mm/hr [facility] LABORATORY SERVICES Specimen Blood specimen (specimen) - Blood Performing Organization Address [facility]/ZIP [facility] Phon e Number [facility] [address] [place] [address] SERVICES BUN (08/28/2017 11:09 EDT) Pathologist [facility] nature BUN 17 10 - 26 mg/dl [facility] LABORATO RY SERVICES Specimen Blood specimen (specimen) - Blood Performing Organization Address [facility]/ZIP [facility] Phon e Number [facility]ORY [address] [place] [address] SERVICES FOLATE (08/28/2017 11:09 EDT) Pathologist Sig nature Folate 19.1 ng/ml [facility] Comment: LABORATORY SERVICES Deficient: ??Less than 3.4 ng/mL Indeterminate: ??3.4-5.4 ng/mL Normal: ??Greater than 5.4 ng/mL The results of this assay can be falsely elevated due to the consumption of Biotin. Specimen Blood specimen (specimen) - Blood Performing Organization Address [facility]/ZIP [facility] Phon e Number [facility]ORY [address] [place] [address] SERVICES CREATININE (08/28/2017 11:09 EDT) Creatinine 0.80 0.52 - 1.04 [facility] mg/dl LABORATORY SERVICES GFR, Calculated 72 >60 [facility] Comment: ml/min/1.73m2 LABORATORY eGFR calculated using CKD-EPI equation for SERVICES non Americans. Multiply eGFR by 1.16 for Americans. Specimen Blood specimen (specimen) - Blood Performing Organization Address City/[facility]/ZIP [facility] Phon e Number [facility]ORY [address] [place] [address] SERVICES C REACTIVE PROTEIN (08/28/2017 11:09 EDT) Pathologist Sig nature C Reactive Protein <7.0 <10.0 mg/L [facility] LABORATORY SERVICES Specimen Blood specimen (specimen) - Blood Performing Organization Address [facility] e Number [facility]ORY [address] [place] [address] SERVICES (ABNORMAL) METHYLMALONIC ACID (08/28/2017 11:09 EDT) Pathologist [facility] Methylmalonic Acid 0.84 (H) <=0.40 [facility] Comment: nmol/mL CENTER (Note) LABORATORY In this sample, the concentration of methylmalonic aci d SERVICES (MMA) was elevated. This finding is likely related to vitamin B12 deficiency. . ADDITIONAL INFORMATION ------ This test was developed and its performance characteri stics determined by [facility] in a manner consistent with CLIA requirements. This test has not been cleared or approv ed by the U.S. Food and Drug Administration. Performed or Referred by: [facility], [address] [place] [address], Lab Dir: Nimesh junior II, M.D., Ph.D. Specimen Blood specimen (specimen) - Blood Performing Organization Address City/[facility] Phon e Number [facility] [address] [place] [address] SERVICES VITAMIN B12 (08/28/2017 11:09 EDT) Pathologist [facility] Vitamin B-12 215 931 - 911 [facility] Comment: pg/ml LABORATORY SERVICES The results of this assay can be falsely lowered due to the consumption of Biotin. Specimen Blood specimen (specimen) - Blood Performing Organization Address City/[facility]/ZIP Code Phon e Number [facility] LABORATORY [address] [place] [address] SERVICES VITAMIN A, S (08/28/2017 11:09 EDT) Vitamin A 60.6 32.5 - 78.0 [facility] Comment: mcg/dL LABORATORY (Note) SERVICES . ADDITIONAL INFORMATION ------ This test was developed and its performance characteri stics determined by [facility] in a manner consistent with CLIA requirements. This test has not been cleared or approv ed by the U.S. Food and Drug Administration. Performed by: [facility] Labs: [address], [place] [address], Lab Dir: Nimesh Osorio II, M.D., Ph.D. Specimen Blood specimen (specimen) - Blood Performing Organization Address City/[facility] Code Phon e Number [facility] [address] [place] [address] SERVICES documented in this encounter Visit Diagnoses [...] Periphery Normal Normal Wearing Rx Sphere Cylinder [place] Add Right eye -1.25 +1.25 180 +2.50 Left eye +0.50 Sphere +2.50 Age: 1m Type: PAL Manifest Refraction (Retinoscopy) Sphere Cylinder [place] Dist [facility] Add Near [facility] Right eye -1.00 +1.50 010 20/25+ +2.50 J1+ Left eye [place] +0.75 165 20/30 +2.50 J2 Care Teams Molder Setter Relationship Specialty Start Date End Date Raquel Martin PA-C PCP - General 08/28/17 [address] [place] [phone] documented as of this encounter
--- OUTSIDE RECORDS SUMMARY | 2021-12-07 13:43 | XMS_ITS | Encounter Summary ---
:1940 Author Organization [facility] Address [address] [place] [address] Care Team Providers Name Role Phone Raquel Martin PA-C Primary Care Provider [phone] Reason for Referral Consult (Routine) - Specialty Report Received Specialty Diagnoses / Procedures Referred By Contact Refer red To Contact Neurosurgery Diagnoses Aneurysm of anterior cerebral artery Sohail Chaudhry Tranmer, Bruce Ia n, MD MD [address] [place] [phone] Referral ID Status Reason Start Expiration Visits Visits Date Date Requested Authorized [id number] Specialty Specialty 09/20/2017 1 1 Report Services Received Required Question Answer Reason for Request: AUDRA aneurysm Encounter Details Date Type Department Care Team Description 09/20/2017 Orders Only [facility] Sohail Chaudhry Aneurysm of anterior Ophthalmology - Paddy Vasquez MD cerebral artery [address] (Primary Dx) [address] [place] [address] [address] (Wo rk) Social History Tobacco Use Types Packs/Day Years Used Date Former Smoker Quit: 08/29/19 07 Smokeless Tobacco: Never Used Alcohol Use Standard Drinks/Week Comments No 0 (1 standard drink = 0.6 oz pure alcoho l) Sex Assigned at Date Recorded Not on file documented as of this encounter Plan of Treatment Scheduled Referrals Name Type Priority Associated Order Schedule Diagnoses AMB CONS/FOLLOW UP Outpatient Referral Routine Aneurysm of Or dered: NEUROSURGERY anterior cerebral 09/20/2017 artery documented as of this encounter Visit Diagnoses Diagnosis Aneurysm of anterior cerebral artery - P rimary Cerebral aneurysm, nonruptured documented in this encounter Care Teams Supervisor [employer] Relationship Specialty Start Date End Date Raquel Martin PA-C PCP - General 08/28/17 [address] [place] [address] documented as of this encounter
--- OUTSIDE RECORDS SUMMARY | 2021-12-07 13:43 | XMS_ITS | Encounter Summary ---
:1940 Author Organization [facility] Address [address] [place] [address] Care Team Providers Name Role Phone Raquel Martin PA-C Primary Care Provider [phone] Reason for Referral Radiology Services (Routine) - Receiving Office to Obtain Authorization Specialty Diagnoses / Procedures Referred By Contact Refer red To Contact Diagnoses Cerebral aneurysm, nonruptured Varsha Patrick, Procedures CT HEAD WO CONTRAST ANGEL [address] [place] [phone] Referral ID Status Reason Start Expiration Visits Visits Date Date Requested Authorized [id number] Receiving Office 11/16/2017 1 1 to Obtain Authorization ollow Up (Routine) - Authorization Not Required Specialty Diagnoses / Procedures Referred By Contact Refer red To Contact Neurosurgery Diagnoses Cerebral aneurysm, nonruptured Varsha Patrick, Yosef Shields PA-C PA-C [address] [place] [phone] Referral ID Status Reason Start Expiration Visits Visits Date Date Requested Authorized [id number] Authorization Specialty 1 1 Not Required Services 8 Required Question Answer Reason for Request: post op follow up Scheduling Comments (optional ? 4 weeks describe specific scheduling needs if applicable): Encounter Details Date Type Department Care Team Description 11/12/2017 - [facility] Dennis Henao Cerebra l aneurysm, 11/16/2017 Encounter Neurosurgery Unit MD Justyn nonruptured [address] [place] [address] [address] [phone] [place], [facility], [facility] [address] [place] [address] Social History Tobacco Use Types [...] Allergy status to sulfonamides sta tus-Z88.2[ICD-10-CM] Z79.82 watermaster (current) use of aspiri n-Z79.82[ICD-10-CM] documented in [...] 08/28/2017 Discharge Follow Up Appointments Scheduled with [facility] in the next 3 months Studies [...] 4 PM, Sunday through Sunday. Triage line [phone]. 17. After hours, there is always a doctor condemnation engineer for emergencies or go to your local [...] Renteria, OT - 11/16/[address] [facility] Rehabilitation Therapy Acute Therapies [place] ??? Occupational Therapy Discontinue/Discharge Note Date of [...] Son (Arron) + Sister (Katey) + Location ([facility]) + Situation (Brain aneurysm) + Month [...] admission to a subacute Rehab. ?? 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 [...] ?? PLAN: Discontinue occupational therapy at [facility] acute care. Recommended Discharge Destination: Sub-acute rehabilitation Recommended Discharge Services: Occupational therapy at rehabilitation facility Recommended Discharge Equipment: To be determined by next care provider Pager: [phone] Marisa Renteria OT, 11/17/2017, 11:44 Romeo Tinoco, PT - 11/16/[address] [facility] Rehabilitation Therapy Acute Therapies [facility] Physical Therapy Discontinue/Discharge Note Date of Service: [...] for steady gains and to meet her mcfp goal of discharge to home with her [...] other consults recommended at this time Pager: [phone] ROMEO SUAREZ PT 11/16/2017 12:24 Flor Kruse RN - 11/16/2017 0855 EDT Pt has bed offer at her first choice, [facility]. Pt will transfer via ambulance [...] Alert Verbalizes appropriately, fluently Oriented to self, [facility], October 2017 Follows commands x4 Extraocular movements [...] Yeh MD Neurosurgery resident 11/16/2017 7:51 Page 1942 with questions Flor Kruse RN - 11/15/2017 1218 EDT Per discussion with PT pt will require SARIKA stay after hospital prior to home with her sister. Met with pt and her friend for choice and consent for SARIKA placement. Pt lives in [facility] and would like to stay within the [facility]. Explained that if one of the two facilities in [facility] does not offer her a bed we would need to expand the search and she agrees with this, but would like [facility] attempted first. Pt's information sent to both [facility] facilities. Myranda Starks, OT - 11/15/[address] [facility] Rehabilitation Therapy Acute Therapies [place] ??? Occupational Therapy Encounter Note Date of [...] Son (Arron) + Sister (Katey) + Location ([facility]) + Situation (Brain aneurysm) + Month [...] - informed of elevated BP Assessment/Plan Assessment Rehan presents with much more clarity related to [...] be determined by next care provider Pager: [phone] Myranda Braswell OT, 11/15/2017, 11:53 Flor Kruse RN - 11/15/2017 4075 EDT Initial Case Management/Social Work Assessment and [...] factors affecting health care/discharge planning: Spiritual/Cultural Requests: (Oriental Orthodox) Any factors affecting health care/discharge planning?: No [...] Health Services: None DME Provider: None Pharmacy: [id number] - [place], [place] - [address] [place] [id number] Home Health: None Other: [facility] [...] Suarez, PT - 11/15/[address] [facility] Rehabilitation Therapy [facility] Physical Therapy Encounter Note Date of Service: [...] initiated Other recommendations: Social Work consult Pager: [phone] ROMEO SUAREZ, PT 11/15/2017 7:24 Johnny Yeh [...] Alert Verbalizes appropriately, fluently Oriented to self, [facility], October 2017 Follows commands x4 Extraocular movements [...] Yeh MD Neurosurgery resident 11/15/2017 6:54 Page [phone] with questions Associated attestation - Dennis Henao [...] Lucia, OT - 11/14/[address] [facility] Rehabilitation Therapy Acute Therapies [facility] Occupational Therapy Initial Evaluation Note Date of [...] Cerebral aneurysm, nonruptured-I67.1[ICD-10-CM] The patient lives at [address] [place] [address] History of Present Illness/Injury: Underwent Bifrontal craniotomy [...] Function: 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 Medical/Surgical History: Current: Patient Active Problem List Diagnosis ??? Cerebral aneurysm, nonruptured Past: Past Medical History: Diagnosis Date ??? Bursitis On the right ??? Chronic back pain ??? Hypertension ??? PMR (polymyalgia rheumatica) ([facility]) Past Surgical History: Procedure Laterality Date ??? [...] and to assist with discharge planning. GOALS: [facility] Goals: 3-4 weels ?? Pt will demonstrate [...] (C5, 6) 5/5 Tricep (C6, 7) 5/5 Toby Maker (C8) 5/5 UE Strength - RIGHT Deltoid (C5) 5/5 Bicep (C5, 6) 5/5 Tricep (C6, 7) 5/5 Toby Maker (C8) 5/5 No drift Sensation intact in [...] Powell MD Neurosurgery resident 11/14/2017 7:38 Page [phone] with questions Associated attestation - Dennis Henao [...] OT - 11/13/2017 1042 EDT Rehabilitation Therapies [facility] Occupational Therapy Contact Note Date of Service: 11/13/2017 Occupational Therapy priority for discharge referral received. Chart reviewed. Communicated with PT who stated pt is not clinically ready and Occupational Therapy evaluation wouldbest be completed on 11/14/17. Occupational Therapy to follow up with pt tomorrow, 11/14/17 to determine d/c recommendations. Mariann Kay OT, 11/13/2017, 10:43 Romeo Suarez, PT - 11/13/2017 0942 EDT Rehabilitation [facility] Physical TherapyContact Note Date of Service: 11/13/2017 Referral received as priority for discharge. Patient with poor tolerance to activity today and does not demonstrate the functional readiness for discharge at this time. Full note to follow. ROMEO SUAREZ PT 11/13/2017 9:44 Romeo Suarez, PT - 11/13/[address] [facility] Rehabilitation Therapy Acute Therapies [facility] Physical Therapy Initial Evaluation Note Date of [...] Cerebral aneurysm, nonruptured-I67.1[ICD-10-CM] The patient lives at [address] [place] [address] Home environment Lives:alone Caregiver Support: Part-time assist, [...] pain ??? Hypertension ??? PMR (polymyalgia rheumatica) ([facility]) Past Surgical History: Procedure Laterality Date ??? [...] abduction, elbow flexion, elbow extension, and hand distresser ) and LE(hip flexion, hip abduction, knee [...] provided by physical therapist and/or physical therapist certified surgical tech/first assistant when medically appropriate. 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 Pt [...] Powell MD Neurosurgery resident 11/12/2017 13:23 Page [phone] with questions Shannan Ivory, RN - 10/31/2017 [...] 11/12/2017 7:05 Please page Neurosurgery Service Pager [phone] for questions Linh Santamaria MD 11/12/2017 7:05 [...] PM / Dennis Henao MD cn Confirmation: [id number] Dictation ID: [id number] cc: Dhaval Chaudhry MD documented in this encounter Miscellaneous Notes Plan of Care - Henny Schofield RN - 11/16/2017 1126 EDT Problem: Daily Care Plan Goals Goal: Care Plan Documentation Outcome: Completed Date Met: 11/16/17 11/16/17 0800 Care Plan Focus Area of Focus Discharge Plan Goal This Shift Pt will discharge with needs met [facility] Action: Report called to Stephania LUGO. Pt updated on plan of care and transfer. Response: Pt agreeable to transfer. Pt medically stable at time of transfer. Henny Schofiedl RN 11/16/2017 12:51 lan of Care - Flor Lou RN - 11/16/2017 0950 EDT 11/16/17 0950 [...] Met This Shift lan of Care - Bentio Douglas RN - 11/15/2017 1954 EDT Problem: [...] Care - Radha Delvalle RN - 11/12/2017 5103 EDT Problem: Daily Care Plan Goals Goal: [...] left pericallosal aneurysm SURGEON = Dr. Henao IT COMPLIANCE ANALYST = Drs. Matthew and Rosalio ANESTHESIA = GETA COMPLICATIONS = None FINDINGS = Successful clipping EBL = 100 cc IVF = 1.4 liters UOP = 1200cc SPECIMENS/CULTURES = None DRAINS = None SKIN = Rapide (absorbable) DISPO =SICU Sommer?? Akt??MD wayne Neurosurgery Resident 11/12/2017 12:31 Please page Neurosurgery Service Pager [phone] for questions documented in this encounter Plan [...] Anatomical Region Laterality Modality Other Specimen Narrative [facility] - 12/18/2017 11:55 [...] Organization Address City/State/ZIP Code Phon e Number [facility] (ABNORMAL) COMPLETE BLOOD COUNT AND DIFFERENTIAL (11/15/2017 6:03 EDT) Pathologist Sig nature WBC 6.65 4.0 - 12.4 [facility] LABORATORY SERVICES RBC 3.65 (L) 3.86 - 5.04 [facility] M[facility] LABORATORY SERVICES Hemoglobin 11.2 (L) 11.6 - 15.2 [facility] gm/dl LABORATORY SERVICES HCT 34.2 (L) 34.9 - 44.4 % [facility] LABORAT[facility] SERVICES MCV 94 81 - 98 fl [facility] LABORATORY SERVICES MCH 30.7 26.7 - 33.3 pg [facility] LABORATORY SERVICES MCHC 32.7 32.1 - 35.9 [facility] gm/dl LABORATORY SERVICES RDW-CV 13.0 <14.7 % [facility] LABORATORY SERVICES RDW-SD 44.8 <50.4 fl [facility] LABORAT[facility] SERVICES PLT 181 141 - 377 K/[facility] LABORATORY SERVICES MPV 9.8 9.5 - 12.7 fl [facility] LABORATORY SERVICES Neutrophils 77.5 % [facility] Lymphocytes 11.4 % [facility] Monocytes 9.2 % [facility] Eosinophils 1.2 % [facility] SERVICES Basophils 0.2 % [facility] SERVICES Immature Grans 0.5 % [facility] LABORATORY SERVICES ABS Neutrophils 5.16 2.20 - 8.85 [facility] LABORATORY SERVICES ABS Lymphs 0.76 (L) 1.09 - 3.30 [facility] LABORATORY SERVICES ABS Monocytes 0.61 0.1 - 0.8 /[facility] LABORATORY SERVICES ABS Eosinophils 0.08 0.03 - 0.61 [facility] LABORATORY SERVICES ABS Basophils 0.01 0.01 - 0.11 [facility] LABORATORY SERVICES ABS Immature Grans 0.03 0 - 0.06 [facility] LABORATORY SERVICES Type of Diff: Automated [facility] SERVICES Specimen Blood specimen (specimen) - Blood Performing Organization Address City/State/ZIP Code Phon e Number [facility] [address] [place] [address] SERVICES CREATININE (11/15/2017 6:03 EDT) Creatinine 0.56 0.52 - 1.04 [facility] mg/dl LABORATORY SERVICES GFR, Calculated 92 >60 [facility] Comment: ml/min/1.73m2 LABORATORY eGFR calculated using CKD-EPI equation for SERVICES non Americans. Multiply eGFR by 1.16 for Americans. Specimen Blood specimen (specimen) - Blood Performing Organization Address City/State/ZIP Code Phon e Number [facility] [address] [place] [address] SERVICES BUN (11/15/2017 6:03 EDT) Pathologist Sig nature BUN 11 10 - 26 mg/dl [facility] LABORATO RY SERVICES Specimen Blood specimen (specimen) - Blood Performing Organization Address City/State/ZIP Code Phon e Number [facility] [address] [place] [address] SERVICES ELECTROLYTES (11/15/2017 6:03 EDT) Pathologist Sig nature Sodium 138 136 - 145 mEq/L [facility] LABORA TORY SERVICES Potassium 4.1 3.5 - 5.0 mEq/L [facility] LABORA TORY SERVICES Chloride 105 96 - 110 mEq/L [facility] LABORAT ORY SERVICES CO2 25 22 - 32 mEq/L [facility] LABORATO RY SERVICES Specimen Blood specimen (specimen) - Blood Performing Organization Address City/[facility]/ZIP Code Phon e Number [facility] [address] [place] [address] SERVICES (ABNORMAL) COMPLETE BLOOD COUNT AND DIFFERENTIAL (11/14/2017 5:39 EDT) Pathologist Sig nature WBC 9.63 4.0 - 12.4 [facility] K/m LABORATORY SERVICES RBC 3.58 (L) 3.86 - 5.04 [facility] M[facility] LABORATORY SERVICES Hemoglobin 10.9 (L) 11.6 - 15.2 [facility] gm/dl LABORATORY SERVICES HCT 33.7 (L) 34.9 - 44.4 % [facility] LABORATORY SERVICES MCV 94 81 - 98 fl [facility] LABORATORY SERVICES MCH 30.4 26.7 - 33.3 pg [facility] LABORATORY SERVICES MCHC 32.3 32.1 - 35.9 [facility] gm/dl LABORATORY SERVICES RDW-CV 13.2 <14.7 % [facility] LABORATORY SERVICES RDW-SD 45.9 <50.4 fl [facility] LABORATORY SERVICES PLT 165 141 - 377 K/[facility] LABORATORY SERVICES MPV 10.1 9.5 - 12.7 fl [facility] LABORATORY SERVICES Neutrophils 78.8 % [facility] LABORATORY SERVICES Lymphocytes 9.7 % [facility] LABORATORY SERVICES Monocytes 10.3 % [facility] LABORATORY SERVICES Eosinophils 0.5 % [facility] LABORATORY SERVICES Basophils 0.1 % [facility] LABORATORY SERVICES Immature Grans 0.6 % [facility] LABORATORY SERVICES ABS Neutrophils 7.59 2.20 - 8.85 [facility] K[facility] LABORATORY SERVICES ABS Lymphs 0.93 (L) 1.09 - 3.30 [facility] K[facility] LABORATORY SERVICES ABS Monocytes 0.99 (H) 0.1 - 0.8 /[facility] LABORATORY SERVICES ABS Eosinophils 0.05 0.03 - 0.61 [facility] K[facility] LABORATORY SERVICES ABS Basophils 0.01 0.01 - 0.11 [facility] K[facility] LABORATORY SERVICES ABS Immature Grans 0.06 0 - 0.06 /[facility] LABORATORY SERVICES Type of Diff: Automated [facility] LABORATORY SERVICES Specimen Blood specimen (specimen) - Blood Performing Organization Address City/State/ZIP Code Phon e Number [facility] [address] [place] [address] SERVICES CREATININE (11/14/2017 5:39 EDT) Creatinine 0.62 0.52 - 1.04 [facility] mg/dl LABORATORY SERVICES GFR, Calculated 88 >60 [facility] Comment: ml/min/1.73m2 LABORATORY eGFR calculated using CKD-EPI equation for SERVICES non Americans. Multiply eGFR by 1.16 for Americans. Specimen Blood specimen (specimen) - Blood Performing Organization Address City/State/ZIP Code Phon e Number [facility] [address] [place] [address] SERVICES BUN (11/14/2017 5:39 EDT) Pathologist Sig nature BUN 16 10 - 26 mg/dl [facility] LABORATO RY SERVICES Specimen Blood specimen (specimen) - Blood Performing Organization Address City/State/ZIP Code Phon e Number [facility] [address] [place] [id number] SERVICES ELECTROLYTES (11/14/2017 5:39 EDT) Pathologist Sig nature Sodium 136 136 - 145 mEq/L [facility] LABORA TORY SERVICES Potassium 4.6 3.5 - 5.0 mEq/L [facility] LABORA TORY SERVICES Chloride 107 96 - 110 mEq/L [facility] LABORAT ORY SERVICES CO2 23 22 - 32 mEq/L [facility] LABORATO RY SERVICES Specimen Blood specimen (specimen) - Blood Performing Organization Address City/State/ZIP Code Phon e Number [facility] [address] [place] [address] HEAD WO CONTRAST (11/13/2017 17:45 EDT) Anatomical Region Laterality Modality Other Specimen Narrative [facility] - 11/14/2017 9:10 [...] Organization Address City/State/ZIP Code Phon e Number [facility] CT HEAD WO CONTRAST (11/13/2017 4:19 EDT) Anatomical Region Laterality Modality Other Specimen Narrative [facility] - 11/13/2017 9:53 [...] Organization Address City/State/ZIP Code Phon e Number [facility] (ABNORMAL) COMPLETE BLOOD COUNT AND DIFFERENTIAL (11/13/2017 3:16 EDT) Pathologist Sig nature WBC 9.85 4.0 - 12.4 [facility] K[facility] LABORATORY SERVICES RBC 3.75 (L) 3.86 - 5.04 [facility] M[facility] LABORATORY SERVICES Hemoglobin 11.4 (L) 11.6 - 15.2 [facility] gm/dl LABORATORY SERVICES HCT 34.3 (L) 34.9 - 44.4 % [facility] LABORATORY SERVICES MCV 92 81 - 98 fl [facility] LABORATORY SERVICES MCH 30.4 26.7 - 33.3 pg [facility] LABORATORY SERVICES MCHC 33.2 32.1 - 35.9 [facility] gm/dl LABORATORY SERVICES RDW-CV 13.1 <14.7 % [facility] LABORATORY SERVICES RDW-SD 43.1 <50.4 fl [facility] LABORATORY SERVICES PLT 171 141 - 377 K[facility] MPV 9.5 9.5 - 12.7 fl [facility] LABORATORY SERVICES Neutrophils 85.8 % [facility] SERVICES Lymphocytes 4.1 % [facility] SERVICES Monocytes 9.7 % [facility] LAB[facility] SERVICES Eosinophils 0.0 % [facility] LABORAT[facility] SERVICES Basophils 0.1 % [facility] LABORATORY SERVICES Immature Grans 0.3 % [facility] LABORATORY SERVICES ABS Neutrophils 8.45 2.20 - 8.85 [facility] K[facility] LABORATORY SERVICES ABS Lymphs 0.40 (L) 1.09 - 3.30 [facility] SERVICES ABS Monocytes 0.96 (H) 0.1 - 0.8 K/[facility] LABORATORY SERVICES ABS Eosinophils 0.00 (L) 0.03 - 0.61 [facility] K[facility] LABORATORY SERVICES ABS Basophils 0.01 0.01 - 0.11 [facility] K[facility] LABORATORY SERVICES ABS Immature Grans 0.03 0 - 0.06 K/[facility] LABORATORY SERVICES Type of Diff: Automated [facility] LABORATORY SERVICES Specimen Blood specimen (specimen) - Blood Performing Organization Address [facility]/ZIP [facility] Phon e Number [facility] [address] [place] [address] SERVICES CREATININE (11/13/2017 3:16 EDT) Creatinine 0.71 0.52 - 1.04 [facility] mg/dl LABORATORY SERVICES GFR, Calculated 84 >60 [facility] Comment: ml/min/1.73m2 LABORATORY eGFR calculated using CKD-EPI equation for SERVICES non Americans. Multiply eGFR by 1.16 for Americans. Specimen Blood specimen (specimen) - Blood Performing Organization Address City/State/ZIP Code Phon e Number [facility] [address] [place] [address] SERVICES BUN (11/13/2017 3:16 EDT) Pathologist Sig nature BUN 15 10 - 26 mg/dl [facility] LABORATO RY SERVICES Specimen Blood specimen (specimen) - Blood Performing Organization Address City/State/ZIP [facility] Phon e Number [facility] [address] [place] [address] SERVICES ELECTROLYTES (11/13/2017 3:16 EDT) Pathologist Sig nature Sodium 138 136 - 145 mEq/L [facility] LABORA TORY SERVICES Potassium 4.7 3.5 - 5.0 mEq/L [facility] LABORA TORY SERVICES Chloride 108 96 - 110 mEq/L [facility] LABORAT ORY SERVICES CO2 22 22 - 32 mEq/L [facility] LABORATO RY SERVICES Specimen Blood specimen (specimen) - Blood Performing Organization Address City/State/ZIP Code Phon e Number [facility] [address] [place] [address] SERVICES MRSA PCR (11/12/2017 14:10 EDT) Pathologist Sig nature Result Methicillin susceptible [facility] Staphylococcus aureus LABORATORY SERVICES (MSSA) DNA detected by PCR. Specimen Other (qualifier value) - Nasal Performing Organization Address City/[facility]/ZIP Code Phon e Number [facility] [address] [place] [address] SERVICES (ABNORMAL) BLOOD GAS, CG8 ISTAT (11/12/2017 9:00 EDT) pH, i-STAT 7.41 7.35 - 7.45 [facility] LABORATORY SERVICES pCO2, i-STAT 44 35 - 45 mmHg [facility] LABORATORY SERVICES pO2, i-STAT 192 (H) 80 - 105 mmHg [facility] LABORATORY SERVICES TCO2, i-STAT 29 (H) 23 - 27 mEq/L [facility] LABORATORY SERVICES O2 Saturation 100 (H) 95 - 98 % [facility] LABORATORY SERVICES Sodium, i-STAT 142 136 - 145 [facility] mEq/L LABORATORY SERVICES Potassium, i-STAT 3.7 3.5 - 5.0 [facility] mEq/L LABORATORY SERVICES Glucose, I-STAT 97 70 - 100 [facility] mg/dl LABORATORY SERVICES Hematocrit,iSTAT 33 (L) 34.9 - 44.4 % [facility] LABORATORY SERVICES Calcium, Ionized 1.21 1.12 - 1.32 [facility] mmol/L LABORATORY SERVICES Base Excess, 3 [facility] i-STAT LABORATORY SERVICES Sample Type ARTERIAL [facility] LABORATORY reconciler ID [id number] [facility] Comment: LABORATORY Test performed by Anesthesia. SERVICES For non-arterial reference ranges, please see ISTAT procedure. Specimen Blood Performing Organization Address City/State/ZIP Code Phon e Number [facility] [address] [place] [address] SERVICES PREPARE RED BLOOD CELLS (11/12/2017 8:41 EDT) Product Code [id number] [facility] Donor Number [id number] [facility] Unit ABO O [facility] Unit Rh NEG [facility] Unit Status RE^Released From [facility] BLOOD BANK Product Expiration [id number] [facility] BLOOD BANK Unit Blood Type 9500 [facility] BLOOD BANK Coding System [id number] [facility] Specimen Performing Organization Address City/[facility]/ZIP Code Phon e Number [facility] [address] BLOOD BANK PREPARE RED BLOOD CELLS (11/12/2017 8:41 EDT) Product Code [id number] [facility] Donor Number [id number] [facility] Unit ABO O [facility] Unit Rh NEG [facility] Unit Status RE^Released From [facility] BLOOD BANK Product Expiration [id number] [facility] BLOOD BANK Unit Blood Type 9500 [facility] BLOOD BANK Coding System [id number] [facility] Specimen Performing Organization Address City/[facility]/ZIP Code Phon e Number [facility] [address] [place] [address] BLOOD BANK PREPARE RED BLOOD CELLS (11/12/2017 8:41 EDT) Product Code [id number] [facility] Donor Number [id number] [facility] Unit ABO O [facility] Unit Rh NEG [facility] Unit Status RE^Released From [facility] BLOOD BANK Product Expiration [id number] [facility] BLOOD BANK Unit Blood Type 9500 [facility] BLOOD BANK Coding System [id number] [facility] BLOOD [facility] Specimen Performing Organization Address City/State/ZIP Code Phon e Number [facility] BLOOD [facility]ANK 111 [facility]. [place], [place] [id number] [place] [address] BLOOD BANK PREPARE RED BLOOD CELLS (11/12/2017 8:41 EDT) Product Code [id number] [facility] Donor Number [id number] [facility] Unit ABO O [facility] Unit Rh NEG [facility]LOOD [facility] Unit Status RE^Released From [facility] BLOOD BANK Product Expiration [id number] [facility] BLOOD BANK Unit Blood Type 9500 [facility] BLOOD BANK Coding System [id number] [facility] BLOOD [facility] Specimen Performing Organization Address City/[facility]/ZIP Code Phon e Number [facility] BLOOD [facility]ANK 111 [facility]. [address] BLOOD BANK ABO/RH (11/12/2017 7:54 EDT) Pathologist Sig nature ABO O [facility] BLOOD BAN K Rh Factor Negative [facility] BLOOD [facility] K Specimen Performing Organization Address City/State/ZIP Code Phon e Number [facility] BLOOD [facility]ANK 111 [facility]. [address] BLOOD BANK TYPE AND SCREEN (11/12/2017 7:54 EDT) ABO O [facility] BLOOD BANK Rh Factor Negative [facility] BLOOD [facility] Antibody Screen Negative [facility] Comment: BLOOD BANK Patient is electronic crossmatch eligible. Units available upon request for transfusion. Specimen Expires: 11/15/2017 @ 23:59 [facility] BLOOD BANK Specimen Performing Organization Address City/[facility]/ZIP Code Phon e Number [facility] BLOOD [facility] 111 [facility]. [address] BLOOD BANK documented in this encounter [...] 0.9 % with KCl 20 mEq/L infusion ([facility]) 0515 (New Bag - Provider: Azra [...] - Provider: Benito Douglas RN) acetaminophen (TYLENOL) suppository 650 mg(Linked Grou [...] 11/16/2017 documented in this encounter Care Teams Room Service Runner Relationship Specialty Start Date End Date Raquel Martin PA-C PCP - General 08/28/17 [address] [place] [address] documented as of this encounter
--- OUTSIDE RECORDS SUMMARY | 2021-12-07 13:43 | XMS_ITS | Encounter Summary ---
:1940 Author Organization Address [address] [place] [address] Care Team Providers Name Role Phone Unavailable Primary Care Provider Unavailable Encounter Details Date Type Department Care Team Description 02/08/[address] [facility] - Nimesh Castelan MD conversion [address] [place] [address] Social History Tobacco Use Types Packs/Day Years [...] REHAN FRITZ ? Accession #: ? [id number] : ? 1940 (Age: 60) ??F ?Collect [...] Code Phon e Number [facility] LABORATORY [address] [place] [address] SERVICES [facility] [address] [place] [address] documented in this encounter Visit Diagnoses Not on filedocumented in this encounter
--- OUTSIDE RECORDS SUMMARY | 2021-12-07 13:43 | XMS_ITS | Encounter Summary ---
:1940 Author Organization [facility] Address [address] [place] [address] Care Team Providers Name Role Phone Raquel Martin PA-C Primary Care Provider [phone] Encounter Details Date Type Department Care Team Description 08/28/2017 Phlebotomy Only [facility] Diamond PolisherPamela field defect - [facility] (Primary Dx) [address] [place], [place] [id number] 38 Social History Tobacco Use Types Packs/Day Years [...] EDT) Homocysteine 25.0 (H) 4.5 - 12.4 [facility] Comment: umol/L LABORATORY Results may be [...] Organization Address City/State/ZIP Code Phon e Number [facility] LABORATORY [address] [place] [address] SERVICES PROTEIN S ACTIVITY (08/28/2017 11:09 EDT) Protein S 147 64 - 147 % [facility] Activity Comment: LABORATORY SERVICES a. ??Acquired [...] Organization Address City/State/ZIP Code Phon e Number [facility] LABORATORY [address] [place] [address] SERVICES (ABNORMAL) HEMAGRAM AND DIFFERENTIAL (08/28/2017 11:09 EDT) Pathologist Sig nature WBC 4.32 4.0 - 12.4 [facility] LAB[facility]ATORY SERVICES RBC 4.13 3.86 - 5.04 [facility] LABORATORY SERVICES Hemoglobin 12.9 11.6 - 15.2 [facility] gm/dl LABORATORY SERVICES HCT 38.8 34.9 - 44.4 % [facility] LABORATORY SERVICES MCV 94 81 - 98 fl [facility] LABORATORY SERVICES MCH 31.2 26.7 - 33.3 pg [facility] LABORATORY SERVICES MCHC 33.2 32.1 - 35.9 [facility] gm/dl LABORATORY SERVICES RDW-CV 12.5 <14.7 % [facility] LABORATORY SERVICES RDW-SD 43.6 <50.4 fl [facility] LABORATORY SERVICES PLT 231 141 - 377 K/[facility] LABORATORY SERVICES MPV 9.6 9.5 - 12.7 fl [facility] LABORATORY SERVICES Neutrophils 66.9 % [facility] LABORATORY SERVICES Lymphocytes 22.9 % [facility] LABORATORY SERVICES Monocytes 8.8 % [facility] LABORATORY SERVICES Eosinophils 0.7 % [facility] LABORATORY SERVICES Basophils 0.5 % [facility] LABORATORY SERVICES Immature Grans 0.2 % [facility] LABORATORY SERVICES ABS Neutrophils 2.89 2.20 - 8.85 [facility] K[facility] LABORATORY SERVICES ABS Lymphs 0.99 (L) 1.09 - 3.30 [facility] LABORATORY SERVICES ABS Monocytes 0.38 0.1 - 0.8 K/m [facility] LABORATORY SERVICES ABS Eosinophils 0.03 0.03 - 0.61 [facility] K[facility] LABORATORY SERVICES ABS Basophils 0.02 0.01 - 0.11 [facility] LABORATORY SERVICES ABS Immature Grans 0.01 0 - 0.06 /[facility] LABORATORY SERVICES Type of Diff: Automated [facility] LABORATORY SERVICES Specimen Blood specimen (specimen) - Blood Performing Organization Address [facility]/ZIP [facility] Phon e Number [facility] LABORATORY [address] [place] [address] SERVICES SYPHILIS SEROLOGY (08/28/2017 11:09 EDT) Pathologist [facility] Syphilis Serology NegativeComment: [facility] Reference Range: LABORATORY SERVICES Negative Specimen Blood specimen (specimen) - Blood Performing Organization Address [facility] Phon e Number [facility] LABORATORY [address] [place] [address] SERVICES ANGIOTENSIN CONVERTING ENZYME (DES) (08/28/2017 11:09 EDT) Angiotensin 17 8 - 53 U/L [facility] Converting Enzyme Comment: LABORATORY Performed or Referred by: [facility], [address] [place] [address], Lab Dir: Nimesh Osorio I I, M.D., Ph.D. Specimen Blood specimen (specimen) - Blood Performing Organization Address [facility]/ZIP [facility] Phon e Number [facility] LABORATORY [address] [place] [address] SERVICES SED. RATE:WESTERGREN (08/28/2017 11:09 EDT) Pathologist Sig nature Sed. Rate Westergren 2 0 - 30 mm/hr [facility] LABORATORY SERVICES Specimen Blood specimen (specimen) - Blood Performing Organization Address City/[facility]/ZIP [facility] Phon e Number [facility] LABOR[facility]ORY [address] [place] [address] SERVICES BUN (08/28/2017 11:09 EDT) Pathologist Sig nature BUN 17 10 - 26 mg/dl [facility] LABORATO RY SERVICES Specimen Blood specimen (specimen) - Blood Performing Organization Address City/[facility]/ZIP [facility] Phon e Number [facility] LABORATORY [address] [place] [address] SERVICES FOLATE (08/28/2017 11:09 EDT) Pathologist Sig nature Folate 19.1 ng/ml [facility] Comment: LABORATORY SERVICES Deficient: ??Less than 3.4 ng/mL Indeterminate: ??3.4-5.4 ng/mL Normal: ??Greater than 5.4 ng/mL The results of this assay can be falsely elevated due to the consumption of Biotin. Specimen Blood specimen (specimen) - Blood Performing Organization Address [facility]/ZIP Code Phon e Number [facility] LABORATORY [address] [place] [address] SERVICES CREATININE (08/28/2017 11:09 EDT) Creatinine 0.80 0.52 - 1.04 [facility] mg/dl LABORATORY SERVICES GFR, Calculated 72 >60 [facility] Comment: ml/min/1.73m2 LABORATORY eGFR calculated using CKD-EPI equation for SERVICES non Americans. Multiply eGFR by 1.16 for Americans. Specimen Blood specimen (specimen) - Blood Performing Organization Address [facility]/ZIP Code Phon e Number [facility] LABOR[facility]ORY [address] [place] [address] SERVICES C REACTIVE PROTEIN (08/28/2017 11:09 EDT) Pathologist Sig nature C Reactive Protein <7.0 <10.0 mg/L [facility] LABORATORY SERVICES Specimen Blood specimen (specimen) - Blood Performing Organization Address [facility] Phon e Number [facility] LABORATORY [address] [place] [address] SERVICES (ABNORMAL) METHYLMALONIC ACID (08/28/2017 11:09 EDT) Methylmalonic Acid 0.84 (H) <=0.40 [facility] Comment: nmol/mL CENTER (Note) LABORATORY In this sample, the concentration of methylmalonic aci d SERVICES (MMA) was elevated. This finding is likely related to vitamin B12 deficiency. . ADDITIONAL INFORMATION ------ This test was developed and its performance characteri stics determined by [facility] in a manner consistent with CLIA requirements. This test has not been cleared or approv ed by the U.S. Food and Drug Administration. Performed or Referred by: [facility] Labs [facility], [address] [place] [address], Lab Dir: Nimesh junior II, M.D., Ph.D. Specimen Blood specimen (specimen) - Blood Performing Organization Address City/[facility]/ZIP Code Phon e Number [facility] LABORATORY [address] [place] [address] SERVICES VITAMIN B12 (08/28/2017 11:09 EDT) Vitamin B-12 215 211 - 911 [facility] Comment: pg/ml LABORATORY SERVICES The results of this assay can be falsely lowered due to the consumption of Biotin. Specimen Blood specimen (specimen) - Blood Performing Organization Address [facility] e Number [facility] LABORATORY [address] [place] [address] SERVICES VITAMIN A, S (08/28/2017 11:09 EDT) Vitamin A 60.6 32.5 - 78.0 [facility] Comment: mcg/dL LABORATORY (Note) SERVICES . ADDITIONAL INFORMATION ------ This test was developed and its performance characteri stics determined by [facility] in a manner consistent with CLIA requirements. This test has not been cleared or approv ed by the U.S. Food and Drug Administration. Performed by: [facility] Labs: [facility] [address], [place] [address], Lab Dir: Nimesh Osorio II, M.D., Ph.D. Specimen Blood specimen (specimen) - Blood Performing Organization Address City/[facility]/ZIP [facility] Phon e Number [facility]OR[facility]ORY [address] [place] [address] SERVICES documented in this encounter Visit Diagnoses Diagnosis Visual field defect - Primary Visual field defect, unspecified documented in this encounter Care Teams Engraver Signature Relationship Specialty Start Date End Date Raquel Martin PA-C PCP - General 08/28/17 [address] [place] [address] documented as of this encounter
--- OUTSIDE RECORDS SUMMARY | 2021-12-07 13:43 | XMS_ITS | Encounter Summary ---
:1940 Author Organization [facility] Address [address] [place] [address] Care Team Providers Name Role Phone Raquel Martin PA-C Primary Care Provider [phone] Encounter Details Date Type Department Care Team Description 10/10/2017 Hospital Encounter [facility] MD Pedro 111 [facility] 111 [place] [address] [address] [phone] [facility] 1 [place] [address] (Wo rk) Social History Tobacco [...] Mynx will completely absorbed by your body [id number] days, leaving nothing behind but a healed [...] a message for them to call IR privacy officer [phone]) for pre-procedure instructions [phone]. If patient should call back, the following [...] -Due to sedation patient must have a industrial tractor driver (bus or taxi is not allowed) - [...] past couple of months. She saw her vice president residential solar sales who referred her to our cutting and printing machine operator,Dr Sohail Chaudhry, who saw macular degeneration due [...] today by he r neighbor and her kczblzgw-fo-frl who have several questions regarding her aneurysm and its treatment. She denies any headaches, any dizziness, any family history of aneurysms or sudden . She is currently a nonsmoker. She quit smoking 10 years ago with a 97-xwjl-mkre smoking history. Her only medical history is hypertension, well controlled on oral medication. SOCIAL HISTORY: She lives in the [facility] with her dog independently. She lives [...] load: 45 cc SURGEONS: Don Vela MD Director Supply: Arron Mera, RT ANESTHESIA: IV sedation with [...] 10/10/2017 documented in this encounter Care Teams Production Repairer Relationship Specialty Start Date End Date Raquel Martin PA-C PCP - General 08/28/17 [address] [place] [address] documented as of this encounter
--- OUTSIDE RECORDS SUMMARY | 2021-12-07 13:43 | XMS_ITS | Encounter Summary ---
:1940 Author Organization [facility] Address [address] [place] [address] Care Team Providers Name Role Phone Raquel Martin PA-C Primary Care Provider [phone] Reason for Referral Radiology Services (Routine) - Closed Specialty Diagnoses / Procedures Referred By Contact Refer red To Contact Diagnoses Cerebral aneurysm, nonruptured Dennis Henao MD Procedures IR CAROTID CEREBRAL BILATERAL [address] [phone] Referral ID Status Reason Start Date Expiration Date Visits Requ ested Visits Authorized [id number] Closed 09/27/2017 1 1 Reason for Visit Reason Comments Follow-up aneurysm Consult (Routine) - Specialty Report Received Specialty Diagnoses / Procedures Referred By Contact Refer red To Contact Neurosurgery Diagnoses Aneurysm of anterior cerebral artery Sohail Chaudhry Tranmer, Bruce Ia n, MD MD 111 [facility] [address] [phone] Referral ID Status Reason Start Expiration Visits Visits Date Date Requested Authorized [id number] Specialty Specialty 09/20/2017 1 1 Report Services Received Required Encounter Details Date Type Department Care Team Description 09/27/2017 Office Visit [facility] Dennis Henao Ce rebral aneurysm, Neurosurgery - Paddy BARRAZA nonruptured (Primary [place] [address] [place] Dx) [address] [place] [address] [facility] [phone] Pavilion, [address] [place] [phone] (Wo rk) Social History Tobacco Use Types [...] past couple of months. She saw her brass plater who referred her to our manager transfusion,Dr Sohail Chaudhry, who saw macular degeneration due [...] today by he r neighbor and her veveceft-wd-gco who have several questions regarding her aneurysm and its treatment. She denies any headaches, any dizziness, any family history of aneurysms or sudden . She is currently a nonsmoker. She quit smoking 10 years ago with a 14-mzcn-ouxe smoking history. Her only medical history is hypertension, well controlled on oral medication. SOCIAL HISTORY: She lives in the [facility] with her dog independently. She lives [...] Henao MD - 09/27/2017 0000 EDT [facility] NEUR[facility]ATION - 09/27/2017 Raquel Martin PA-C [address] [address] Dear Garfieldtiffaniesamra: I had the pleasure of [...] - Dennis Henao MD en Dictation ID: [id number] cc: Raquel Martin PA-C, [address] [place] [address] Sohail Chaudhry MD, [facility] - Ophthalmology [address] [place] [id number] signed by Dennis Henao MD at 10/01/2017 [...] Anatomical Region Laterality Modality Other Specimen Narrative [facility] - 10/11/2017 16:50 EDT Preoperative diagnosis: Left pericallosal aneurysm Postoperative Diagnosis: Same Surgeons: Dr. Don Vela Item Processing Clerk: Arron Mera, RT Anesthesia: Local with sedation [...] over an introducer wire for a 5 American sheath. H eparinized saline infusion was administered through the sheath and the catheter used during this procedure. A 5 American Terumo angled glide catheter was advanced over [...] Postoperative Diagnosis: Same Surgeons: Dr. Don Vela Item Processing Clerk: Arron Mera RT Anesthesia: Local with sedation [...] over an introducer wire for a 5 American sheath. H eparinized saline infusion was administered through the sheath and the catheter used during this procedure. A 5 American Terumo angled glide catheter was advanced over [...] Phon e Number [facility] documented in this encounter Visit Diagnoses Diagnosis Cerebral aneurysm, nonruptured - Primary documented in this encounter Care Teams High School Mathematics Teacher Relationship Specialty Start Date End Date Raquel Martin PA-C PCP - General 08/28/17 [address] [place] [address] documented as of this encounter
--- OUTSIDE RECORDS SUMMARY | 2021-12-07 13:43 | XMS_ITS | Encounter Summary ---
:1940 Author Organization [facility] Address [address] [place] [address] Care Team Providers Name Role Phone Unknown, Provider Primary Care Provider Encounter Details Date Type Department Care Team Description 12/16/2013 Results Only [facility] Samara Rubin MD Laboratory Services - [address] [place] [address] [place] [address] Social History Tobacco Use Types Packs/Day [...] ? REHAN FRITZ ? Accession #: ? [id number] ? : ? 1940 (Age: 73) ??F [...] types 16,18,31,3 3,35, 39,45,51,52,56,58,59,66, and 68 by mail superintendent media ivis amplification. Comments Document reviewed and electronically signed by: ? System Interface ? Report date: 12/25/2013 By the signature above, the attending physician certif ies that he/she has personally conducted a gross and/or microscopic examin ation of the described specimens and rendered or confirmed the above diagnosi s. End of Report Specimen Performing Organization Address City/State/ZIP Code Phon e Number [facility] LABORATORY [address] [place] [address] SERVICES [facility] [address] [place] [address] documented in this encounter Visit Diagnoses Not on filedocumented in this encounter Care Teams Preschool Program Director Relationship Specialty Start Date End Date Unknown, Provider, PCP - General 06/30/11 08/27/17 documented as of this encounter
--- OUTSIDE RECORDS SUMMARY | 2021-12-07 13:43 | XMS_ITS | Encounter Summary ---
:1940 Author Organization [facility] Address [address] [place] [address] Care Team Providers Name Role Phone Raquel Martin PA-C Primary Care Provider [phone] Reason for Visit Reason Onset Date Comments Appointment Related 10/09/2017 Encounter Details Date Type Department Care Team Description 10/09/2017 Telephone [facility] Dennis Henao Ap pointment Related Neurosurgery - [address] [address] [address], [place] [phone] (Wo rk) Social History Tobacco Use Types [...] filedocumented in this encounter Care Teams Supervisor [employer] Farm[employer] Relationship Specialty Start Date End Date Raquel Martin PA-C PCP - General 08/28/[address] [place] [phone] documented as of this encounter
--- OUTSIDE RECORDS SUMMARY | 2021-12-07 13:43 | XMS_ITS | Encounter Summary ---
:1940 Author Organization [facility] Address [address] [place] [address] Care Team Providers Name Role Phone Unavailable Primary Care Provider Unavailable Encounter Details Date Type Department Care Team Description 04/14/2008 Before [facility] - Anthony Rubin MD Converted Visit [facility] conversion [address] ([place]) 111 [facility] [place] [address] Social History Tobacco Use Types Packs/Day Years Used Date Never Assessed Sex Assigned at Date Recorded Not on file documented as of this encounter Plan of Treatment Not on filedocumented as of this encounter Procedures Procedure Name Priority Date/Time Associated Diagnosis Comme nts CYTOPATHOLOGY Routine 04/14/2008 0:00 EST Results for this procedure are i n the results section . documented in this encounter Results CYTOPATHOLOGY (04/14/2008 0:00 EST) Pathology Report: CYTOPATHOLOGY REPORT ? [facility] ? LAB Reports generated via electr Domain Surgical interface contain original data; ? however they are lacking the format of the original report. ? Caution should be taken when reading/interpreting unformatted reports. ? Name: ? REHAN FRITZ ? Accession #: ? [id number] ? : ? 1940 (Age: 67) ??F ?Collect Date: ? 04/14/2008 ? Location: ? [facility] ? Receive Date: ? 04/15/2008 ? Provider: ?LUDY TIFFANY L MD ? Copy to: ? Specimen/Source: ? Pap Test, Cervix/Endocervix, ThinPrep Imaging System ? with manual evaluation ? Last Menstrual Period: ? Previous Gynecologic Patholo gy: ? SKYE II ? ASC-US ? HPV ? Other: ? HPVA - HPV testing requested if ASC-US on the current ThinPrep Pap test. ? SPECIMEN ADEQUACY ? Satisfactory for Eval uation ? - transformation zone compon ent present ? GENERAL CATEGORIZATION ? Negative for Intraepi thelial Lesion or Malignancy ? Document reviewed and electr onically signed by: ? Shagufta B. Arsalan, SCT( ASCP) ? Report Date: ??01/22/ 2009 16:03 ? End of Report ? Specimen Performing Organization Address City/State/ZIP Code Phon e Number [facility] [address] [place] [address] SERVICES [facility] [address] [place] [address] documented in this encounter Visit Diagnoses Not on filedocumented in this encounter
--- OUTSIDE RECORDS SUMMARY | 2021-12-07 13:43 | XMS_ITS | Encounter Summary ---
:1940 Author Organization [facility] Address [address] [place] [address] Care Team Providers Name Role Phone Unavailable Primary Care Provider Unavailable Encounter Details Date Type Department Care Team Description 02/07/2000 Results Only [facility] - Nimesh Castelan MD conversion [address] [place] [address] Social History Tobacco Use Types Packs/Day Years [...] REHAN FRITZ ? Accession #: ? [id number] : ? 1940 (Age: 59) ??F ?Collect [...] Organization Address City/State/ZIP Code Phon e Number [facility]OR[facility] [address] [place] [address] SERVICES [facility] [address] [place] [address] documented in this encounter Visit Diagnoses Not on filedocumented in this encounter
--- OUTSIDE RECORDS SUMMARY | 2021-12-07 13:43 | XMS_ITS | Encounter Summary ---
:1940 Author Organization [facility] Address [address] [place] [address] Care Team Providers Name Role Phone Raquel Martin PA-C Primary Care Provider [phone] Encounter Details Date Type Department Care Team Description 09/14/2017 Hospital Encounter [facility] MD Pedro 111 [facility] [address] [phone] [place], [address] [place] [address] (Wo rk) Social History Tobacco [...] on filedocumented in this encounter Care Teams Customer Data Technician Relationship Specialty Start Date End Date Raquel Martin PA-C PCP - General 08/28/17 [address] [place] [address] documented as of this encounter
--- OUTSIDE RECORDS SUMMARY | 2021-12-07 13:43 | XMS_ITS | Encounter Summary ---
:1940 Author Organization [facility] Address [address] [place] [address] Care Team Providers Name Role Phone Unavailable Primary Care Provider Unavailable Encounter Details Date Type Department Care Team Description 03/29/2007 Results Only [facility] - Anthony Rubin MD Maple conversion [address] [place] [address] [place] [address] Social History Tobacco Use Types Packs/Day Years Used Date Never Assessed Sex Assigned at Date Recorded Not on file documented as of this encounter Plan of Treatment Not on filedocumented as of this encounter Procedures Procedure Name Priority Date/Time Associated Diagnosis Comme nts CYTOPATHOLOGY Routine 03/29/2007 0:00 EST Results for this procedure are i n the results section . documented in this encounter Results CYTOPATHOLOGY (03/29/2007 0:00 EST) Pathology Report: CYTOPATHOLOGY REPORT [facility] Reports generated via electronic interface contain audelia ginal data; however they are lacking the format of the original re port. Caution should be taken when reading/interpreting unfo rmatted reports. Name: ? REHAN FRITZ ? Accession #: ? [id number] : ? 1940 (Age: 66) ??F ?Collect Date: ? 06/2007 Location: ? [facility] ? Receive Date : ? 04/01/2007 Provider: ?LUDY RUBIN MD Copy to: ? Specimen/Source: ? ThinPrep Pap Test, Cervix/Endocervix, processed on [employer] ThinPrep Imaging System, with manual evaluation Last Menstrual Period: ? Previous Gynecologic Pathology: ? SKYE II ASC-US: last pap HPV: last pap Other: ? HPVA - HPV testing requested if ASC-US on the current ThinPrep Pap test. ? SPECIMEN ADEQUACY ? Satisfactory for Evaluation - transformation zone component present GENERAL CATEGORIZATION ? Negative for Intraepithelial Lesion or Malignan cy INTERPRETATION ? Reactive cellular willis nges associated with inflammation present (includes repair). ? Document reviewed and electronically signed by: ? ANGELY VERA MD ? Report Date: ??04/03/2007 20:37 End of Report Specimen Performing Organization Address City/State/ZIP Code Phon e Number [facility] [address] [place] [address] SERVICES [facility] [address] [place] [address] documented in this encounter Visit Diagnoses Not on filedocumented in this encounter
--- OUTSIDE RECORDS SUMMARY | 2021-12-07 13:43 | XMS_ITS | Encounter Summary ---
:1940 Author Organization [facility] Address [address] [place] [address] Care Team Providers Name Role Phone Unavailable Primary Care Provider Unavailable Encounter Details Date Type Department Care Team Description 05/03/2010 Results Only [facility] Samara Rubin MD Laboratory Services - [address] [place] [address] [place] [address] Social History Tobacco Use Types Packs/Day Years Used Date Never Assessed Sex Assigned at Date Recorded Not on file documented as of this encounter Plan of Treatment Not on filedocumented as of this encounter Procedures Procedure Name Priority Date/Time Associated Diagnosis Comme [facility] CYTOPATHOLOGY Routine 05/03/2010 0:00 EST Results for this procedure are i n the results section . documented in this encounter Results CYTOPATHOLOGY (05/03/2010 0:00 EST) Pathology Report: CYTOPATHOLOGY REPORT ? [facility] ? [facility] Reports generated via [employer] interface contain original data; ? however they are lacking the format of the original report. ? Caution should be taken when reading/interpreting unformatted reports. ? Name: ? CATRINA REHAN ? Accession #: ? [id number] ? : ? 1940 (Age: 70) ??F ?Collect Date: ? 05/03/2010 ? Location: ? [facility] ? R eceive Date: ? 05/04/2010 ? Provider: SAMRAAHARRY RUBIN MD ? Copy to: ? Final [...] Organization Address City/State/ZIP Code Phon e Number [facility] [address] [place] [address] SERVICES [facility] [address] [place] [address] documented in this encounter Visit Diagnoses Not on filedocumented in this encounter
--- OUTSIDE RECORDS SUMMARY | 2021-12-07 13:43 | XMS_ITS | Encounter Summary ---
:[address] [facility] Address [address] [place] [address] Care Team Providers Name Role Phone Unknown, Provider Primary Care Provider Encounter Details Date Type Department Care Team Description 12/09/2012 Results Only [facility] Samara Rubin MD Laboratory Services - [address] [place] [address] [place] [address] Social History Tobacco Use Types Packs/Day Years Used Date Never Assessed Sex Assigned at Date Recorded Not on file documented as of this encounter Plan of Treatment Not on filedocumented as of this encounter Procedures Procedure Name Priority Date/Time Associated Diagnosis Comme nts PAP TEST- RESULT Routine 12/09/2012 0:00 EDT Resu lts for this ONLY procedure are i n the results section. documented in this encounter Results PAP TEST- RESULT ONLY (12/09/2012 0:00 EDT) Pathology Report: CYTOPATHOLOGY REPORT [facility] Reports generated via electronic interface contain audelia ginal data; however they are lacking the format of the original re port. Caution should be taken when reading/interpreting unfo rmatted reports. Name: ? REHAN FRITZ ? Accession #: ? [id number] ? : ? 1940 (Age: 72) ??F ?Collect Da te: ? 12/09/2012 ? Location: ? [facility] ? Receive Date: ? 013 ? Provider: SAMARA RUBIN MD Copy to: [facility] ? Final Report SPECIMEN ADEQUACY ? Satisfactory for Evaluation - transformation zone component present - scant squamous epithelial component GENERAL CATEGORIZATION ? Negative for Intraepithelial Lesion or Malignan cy ?? Previous Gynecologic Pathology: SKYE II: h/o HPV: + Specimen/Source: ??Pap Test, Cervix/Endocervix, ThinPr ep Imaging System with manual evaluation Document reviewed and electronically signed by: ? HERNANDEZ Borja(ASCP) ? Report ??Date: 12/13/2012 14:26 HPV with Pap Test ? Date Ordered: ? 12/13/2012 ? Status: ?? Signed Out ?Date Complete: ? 12/17/2012 ? By: ??S ystem Interface ? Date Reported: ? 12/17/2012 ? Interpretation RESULT: Negative for HPV. No E6 or E7 mRNA is detected from HPV types 16,18,31,3 3,35, 39,45,51,52,56,58,59,66, and 68 by hospitality director media ivis amplification. Comments Document reviewed and electronically signed by: ? System Interface ? Report date: 12/17/2012 By the signature above, the attending physician certif ies that he/she has personally conducted a gross and/or microscopic examin ation of the described specimens and rendered or confirmed the above diagnosi s. End of Report Specimen Performing Organization Address City/State/ZIP Code Phon e Number [facility] [address] [place] [address] SERVICES [facility] [address] [place] [address] documented in this encounter Visit Diagnoses Not on filedocumented in this encounter Care Teams Straddle Bug Driver Relationship Specialty Start Date End Date Unknown, Provider, PCP - General 06/30/11 08/27/17 documented as of this encounter
[2021-12-07 19:55] LABS: Anion Gap 7.5 mmol/L (3-11); BUN 43 mg/dL (7-18); CO2 27.5 mmol/L (21.0-32.0); CREATININE 2.1 mg/dL (0.55-1.02); Calcium 9.2 mg/dL (8.5-10.1); Chloride 97 mmol/L (98-107); Estimated GFR 23.53 (mL/min/1.73m2); Glucose 219 mg/dL (74-106); Potassium 5.1 mmol/L (3.5-5.1); Sodium 132 mmol/L (136-145)
[2021-12-07 20:04] LABS: Abs Immature Grans 0.07 10^3/uL (0.0-0.06); Absolute Basophil Count 0.02 10^3/uL (0.0-0.2); Absolute Eosinophil Count 0.01 10^3/uL (0.0-0.7); Absolute Lymphocyte Count 0.67 10^3/uL (1.2-3.4); Absolute Monocyte Count 0.53 10^3/uL (0.1-0.8); Basophils % 0.2; Eosinophils % 0.1; HCT 46.9 % (36.0-46.0); Immature Grans % 0.6; Lymphocytes % 6.1; MCH 30.5 pg (27.0-33.0); MCV 95 fL (80-95); MPV 9.3 fL (8.0-11.0); Monocytes % 4.8; Neutrophils % 88.2; Platelet Count 192 10^3/uL (130-400); RBC 4.92 10^6/uL (3.93-5.22); RDW 13.5 % (11.7-14.6); RDW-SD 47.8 fL; WBC 10.95 10^3/uL (4.4-10.8)
[2021-12-07 20:26] LABS: Absolute Neutrophil Count 9.66 10^3/uL (1.2-6.7)
== END 2021-12-07 13:41 | disposition home or self-care (01) ==
LOC: NCHCN 13:40
PROVIDERS: PCP Physician Assistant Medical; Visit Provider Physician Assistant Medical
DX: R06.09 Other forms of dyspnea (principal)
CPT/HCPCS: 80048; 85025

== ENCOUNTER → 2021-12-12 11:12 | Outpatient (CLI) | payer MEDICARE, MEDICAID, SELFPAY ==
--- NOTE | 2021-12-12 | DI.RAD_ITS ---
Exam(s) XR CHEST 2V PA LATERAL EXAM: XR CHEST 2V PA LATERAL CLINICAL HISTORY: DYSPNEA ON EXERTION--R06.09 TECHNIQUE: 2D digital imaging was performed. COMPARISON: CR CHEST 2 VIEWS PA,LAT from 10/26/2017 CR,XR XR PORTABLE CHEST AP from 05/01/[address] ABDOMEN PELVIS W from 05/01/2020 CR,XR XR CHEST 2V PA LATERAL from 11/15/2021 FINDINGS: MEDIASTINUM: Normal. HEART: Normal. PULMONARY VASCULATURE: Normal. LUNGS: Emphysematous and fibrotic changes throughout both lungs. Scarring greatest left upper lobe. PLEURAL SPACE: No pleural effusion or pneumothorax. BONE:Unremarkable for age. IMPRESSION: Emphysematous and fibrotic changes. DATA REPOSITORY: RADIATION DOSE DELIVERED:
--- OUTSIDE RECORDS SUMMARY | 2021-12-12 11:15 | XMS_ITS | Encounter Summary ---
:1940 Author Organization [facility] Address [address] [place] [address] Care Team Providers Name Role Phone Raquel Martin PA-C Primary Care Provider [phone] Reason for Visit Reason Onset Date Comments Appointment Related 02/16/2020 Encounter Details Date Type Department Care Team Description 02/16/2020 Telephone [facility] Debby Polo, [place] ointment Related Neurosurgery - [facility] RN [address] [place] [address] Social History Tobacco Use Types [...] on filedocumented in this encounter Care Teams Stress Engineer Relationship Specialty Start Date End Date Raquel Martin PA-C PCP - General 08/28/[address] [place] [phone] documented as of this encounter
--- OUTSIDE RECORDS SUMMARY | 2021-12-12 11:15 | XMS_ITS | Encounter Summary ---
:1940 Author Organization [facility] Address [address] [place] [address] Care Team Providers Name Role Phone Raquel Martin PA-C Primary Care Provider [phone] Encounter Details Date Type Department Care Team Description 12/26/2019 Lab Requisition [facility] Outr Resulting Lab, Pathology & Laboratory Provider [facility] [address] [place], [place] [id number] Social History Tobacco Use Types Packs/Day Years [...] (12/26/2019 9:28 EDT) COVID-19 rt-PCR NEGATIVE Negative [facility] Result Comment: LABORATORY 2019-novel Coronavirus (2019 [...] Organization Address City/State/ZIP Code Phon e Number [facility] [place] COVID-19 TESTING (12/26/2019 9:28 EDT) COVID-19 rt-PCR NEGATIVE Negative [facility] Result Comment: LABORATORY 2019-novel Coronavirus (2019 [...] Administration's Emergency Use Authorization. Performing Lab [facility] LABORATORY SERVICES Specimen Swab Performing Organization Address City/State/ZIP Code Phon e Number [facility] [address] [place] [address] SERVICES [facility] [place] documented in this encounter Visit Diagnoses Not on filedocumented in this encounter Care Teams Refinisher Relationship Specialty Start Date End Date Raquel Martin PA-C PCP - General 08/28/17 [address] [place] [address] documented as of this encounter
--- OUTSIDE RECORDS SUMMARY | 2021-12-12 11:15 | XMS_ITS | Encounter Summary ---
:1940 Author Organization [facility] Address [address] [place] [address] Care Team Providers Name Role Phone Raquel Martin PA-C Primary Care Provider [phone] Reason for Visit Reason Onset Date Comments Appointment Related 01/23/2019 Encounter Details Date Type Department Care Team Description 01/23/2019 Telephone [facility] Sohail Chaudhry ent Related Ophthalmology - Paddy Vasquez MD [address] [phone] [facility] [address] [place] [address] (Wo rk) Social History Tobacco [...] if she could see dr Obrien in [place]? She cannot see Dr Trejo will not take on any new patients. Unless she is surgical. She says that she just cannot make it to [place] anymore. She loves you, you are very wonderful to her. She would like to continue to see a retinia specialist. documented in this encounter Plan of Treatment Not on filedocumented as of this encounter Visit Diagnoses Not on filedocumented in this encounter Care Teams Hospice Team Lead Relationship Specialty Start Date End Date Raquel Martin PA-C PCP - General 08/28/17 [address] [place] [address] documented as of this encounter
--- OUTSIDE RECORDS SUMMARY | 2021-12-12 11:15 | XMS_ITS | Encounter Summary ---
:1940 Author Organization [facility] Address [address] [place] [address] Care Team Providers Name Role Phone Raquel Martin PA-C Primary Care Provider [phone] Reason for Visit Reason Onset Date Comments Update 02/06/2019 Encounter Details Date Type Department Care Team Description 02/06/2019 Telephone [facility] Sohail Chaudhry, Update Ophthalmology - [facility] 111 [facility] [address] [phone] [place], [address] [place] [address] (Wo rk) Social History Tobacco [...] [address] Tej Ryan in the [place] office. She'd like [facility], to call her back. documented in this encounter Plan of Treatment Not on filedocumented as of this encounter Visit Diagnoses Not on filedocumented in this encounter Care Teams Physical Chemist Relationship Specialty Start Date End Date Raquel Martin PA-C PCP - General 08/28/[address] [place] [phone] documented as of this encounter
--- OUTSIDE RECORDS SUMMARY | 2021-12-12 11:15 | XMS_ITS | Encounter Summary ---
:1940 Author Organization [facility] Address [address] [place] [address] Care Team Providers Name Role Phone Raquel Martin PA-C Primary Care Provider [phone] Reason for Visit Reason Onset Date Comments Update 01/27/2019 Encounter Details Date Type Department Care Team Description 01/27/[address] [facility] Sohail Chaudhry, Update Ophthalmology - [facility] 111 [facility] [address] [phone] [place], [address] [place] [address] (Wo rk) Social History Tobacco [...] Patient was given the number for the [place] [employer] # [phone] and said that she will start there [...] Dr. Chaudhry's desk. elephone Encounter - Maddison Krens - 02/03/2019 0819 EST Patient received the [...] can follow up with Dr. Ryan in [place]. Called patient to update. Patient went to [...] there someone she could see closer to [place], [place] ? [facility], gave her some names of doctors that see patients in [place]. Does she needs to see a retina specialist? Can see see Dr. Colunga or Dr. Ryan? She'd like to get established with someone [place] home and she's like an gore inserter. If that is OK, who sets up the appointment? Does Dr. Chaudhry have a preference where she is seen? Who does she need to follow up with in six months? documented in this encounter Plan of Treatment Not on filedocumented as of this encounter Visit Diagnoses Not on filedocumented in this encounter Care Teams Lead Trainer Relationship Specialty Start Date End Date Raquel Martin PA-C PCP - General 08/28/17 [address] [place] [address] documented as of this encounter
--- OUTSIDE RECORDS SUMMARY | 2021-12-12 11:15 | XMS_ITS | Clinical Summary ---
:1940 Author Organization [facility] Address [address] [place] [address] Care Team Providers Name Role Phone Raquel Martin PA-C Primary Care Provider [phone] Allergies Active Allergy Reactions Severity Noted Date [...] Problems Problem Noted Date SDH (subdural hematoma) ([facility]) 12/18/2017 Cerebral aneurysm, nonruptured 09/27/2017 Overview: 11/12/17- [...] right Chronic back pain PMR (polymyalgia rheumatica) ([facility]) ([facility]) Hypertension Family History Medical History [...] T ype Group Dates MEDICARE MEDICARE A/B [id number] 2007-Prese [address] [place] [address] [place]ID [id number] 2017-Prese [address] Medicaid [place] [facility] [address] Guarantor Name Account Type Relation to Date of Phone Bill ing Patient Address Rehan Gann Personal/Family Self 1940 [address] [place] [address] Sanjuanita,Rehan Agnieszka Personal/Family Self 1940 [address] [place] [address] Rehan Gann Personal/Family Self 1940 [address] [place] [address] Derry,Rehan Agnieszka Personal/Family Self 1940 [address] [place] [address] SanjuanitaRehan Agnieszka Personal/Family Self 1940 [address] [place] [address] Rehan Gann Personal/Family Self 1940 [address] [place] [address] DerryRehan Aaron Personal/Family Self 1940 [address] [place] [address] DerryRehan leggett Personal/Family Self 1940 [address] [place] [address] Advance Directives For more information, please contact: [phone] Documents on File Type Date Recorded Patient Spa Director/Finance Explanati on Advance Directive 11/12/2017 5:47 [place] [...] in the discussion? Not Discussed Care Teams Cell Tuber Machine Relationship Specialty Start Date End Date Raquel Martin PA-C PCP - General 08/28/17 [address] [place] [address]
--- OUTSIDE RECORDS SUMMARY | 2021-12-12 11:15 | XMS_ITS | Encounter Summary ---
:1940 Author Organization [facility] Address [address] [place] [address] Care Team Providers Name Role Phone Raquel Martin PA-C Primary Care Provider [phone] Reason for Visit Reason Onset Date Comments Appointment Related 06/18/2019 Encounter Details Date Type Department Care Team Description 06/18/2019 Telephone [facility] Sam Ryan, Doug intment Related Ophthalmology - [place] [address] [place] [phone] (Wo rk) Social History Tobacco Use Types [...] on filedocumented in this encounter Care Teams Civil Engineer Helper Relationship Specialty Start Date End Date Raquel Martin PA-C PCP - General 08/28/17 [address] [place] [address] documented as of this encounter
--- OUTSIDE RECORDS SUMMARY | 2021-12-12 11:15 | XMS_ITS | Encounter Summary ---
:1940 Author Organization [facility] Address [address] [place] [address] Care Team Providers Name Role Phone Raquel Martin PA-C Primary Care Provider [phone] Reason for Visit Reason Comments Follow-up 6-8m f/u [facility] Encounter Details Date Type Department Care Team Description 02/22/2021 Office Visit [facility] Kayla Ryan MD Ophthalmology - [place] [address] [place] [address] Suite [place], [place] [address] [phone] Social History Tobacco Use Types Packs/Day Years [...] encounter Progress Notes Sam Ryan MD - 02/22/2021 6136 EST Chief Complaint Patient presents with ??? [...] Endocrine: NL Hematologic: NL Immunologic: Drug Allergy Leather Sponger: NL Exposures: Other: Attestation: Base Eye Exam [...] Normal Normal Refraction Wearing Rx Sphere Cylinder [place] Add Right -1.50 +1.50 179 +2.25 Left [...] BOTH EYES (02/22/2021 12:09 EST) Specimen Narrative [facility] POINT OF CARE - 02/22/2021 12:[address] Indication: Age-related macular degeneration OCT macula: Right: signal strength: 9/10 , foveal atrophy, window defect, no intra/subretinal fluid Left: signal strength: 10/10, foveal atr ophy, window defect, no intra/subretinal fluid Performing Organization Address City/State/ZIP Code Phon e Number [facility] POINT OF CARE FUNDUS PHOTOS - OU - BOTH EYES (02/22/2021 12:08 EST) Specimen Narrative [facility] POINT OF CARE - 02/22/2021 12:[address] Indication: Age-related macular degeneration Fundus/Fundus autofluorescence photo: Ri ght: area of geographic atrophy, small amount of change inferior Left: area of geographic atrophy (decrea sed autofluorescence), some small change inferior Performing Organization Address City/[facility]/ZIP Code Phon e Number [facility] POINT OF CARE documented in this [...] Periphery Normal Normal Wearing Rx Sphere Cylinder [place] Add Right eye -1.50 +1.50 179 +2.25 Left eye +0.25 +1.00 179 +2.25 Care Teams Wood Turner Relationship Specialty Start Date End Date Raquel Martin PA-C PCP - General 08/28/17 [address] [place] [phone] documented as of this encounter
--- OUTSIDE RECORDS SUMMARY | 2021-12-12 11:15 | XMS_ITS | Encounter Summary ---
:1940 Author Organization [facility] Address [address] [place] [address] Care Team Providers Name Role Phone Raquel Martin PA-C Primary Care Provider [phone] Reason for Visit Reason Onset Date Comments Other 08/20/2019 lab results Encounter Details Date Type Department Care Team Description 08/20/2019 Telephone [facility] Sam Ryan Othe r (lab results) Ophthalmology - [place] [address] [facility] [address] [place] [phone] (Wo rk) Social History Tobacco Use Types [...] ordered at last visit w/Dr. Ryan. Called [facility] where patient had labs done - not back yet but will fax to us when they get results. documented in this encounter Plan of Treatment Not on filedocumented as of this encounter Visit Diagnoses Not on filedocumented in this encounter Care Teams Knapsack Sprayer Relationship Specialty Start Date End Date Raquel Martin PA-C PCP - General 08/28/17 [address] [place] [address] documented as of this encounter
--- OUTSIDE RECORDS SUMMARY | 2021-12-12 11:15 | XMS_ITS | Encounter Summary ---
:1940 Author Organization [facility] Address [address] [place] [address] Care Team Providers Name Role Phone Raquel Martin PA-C Primary Care Provider [phone] Reason for Visit Reason Comments Follow-up Yearly f/u [facility] Encounter Details Date Type Department Care Team Description 02/16/2020 Office Visit [facility] [place] [facility] Kayla Ryan MD Ophthalmology - [place] [address] [place] [address] [address] [place] [address] [address] [place], [place] [address] [phone] Social History Tobacco Use Types Packs/Day Years [...] Endocrine: NL Hematologic: NL Immunologic: Drug Allergy Multimedia Technician: NL Exposures: None Other: Attestation: Base Eye [...] Normal Normal Refraction Wearing Rx Sphere Cylinder [place] Add Right -1.50 +1.50 179 +2.25 Left +0.25 +1.00 179 +2.25 Manifest Refraction Sphere Cylinder [place] Dist [place] Right -1.75 +1.25 009 20/50-2 [...] BOTH EYES (02/16/2020 11:59 EST) Specimen Narrative [facility] POINT OF CARE - 02/16/2020 11:[address] Indication: Dry macular degeneration Fundus/disc photo: Right: geographic atr ophy without significant change on Fundus autofluorescence photos. Left: geographic atrophy without signifi cant change on Fundus autofluorescence photos. Performing Organization Address City/State/ZIP Code Phon e Number [facility] POINT OF CARE documented in this [...] Periphery Normal Normal Wearing Rx Sphere Cylinder [place] Add Right eye -1.50 +1.50 179 +2.25 Left eye +0.25 +1.00 179 +2.25 Manifest Refraction Sphere Cylinder [place] Dist [place] Right eye -1.75 +1.25 009 20/50-2 Left eye Care Teams Numerical Control Router Operator Relationship Specialty Start Date End Date Raquel Martin PA-C PCP - General 08/28/17 [address] [place] [phone] documented as of this encounter
--- OUTSIDE RECORDS SUMMARY | 2021-12-12 11:15 | XMS_ITS | Encounter Summary ---
:1940 Author Organization [facility] Address [address] [place] [address] Care Team Providers Name Role Phone Raquel Martin PA-C Primary Care Provider [phone] Encounter Details Date Type Department Care [...] on filedocumented in this encounter Care Teams Safe And Vault Service Mechanic Relationship Specialty Start Date End Date Raquel Martin PA-C PCP - General 08/28/17 [address] [place] [phone] documented as of this encounter
--- OUTSIDE RECORDS SUMMARY | 2021-12-12 11:15 | XMS_ITS | Encounter Summary ---
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 Encounter Details Date Type Department Care Team Description 08/23/2021 Office Visit [facility] Kayla Ryan MD Ophthalmology - [place] in [address] [place] [phone] [address] [place], [place] [address] [phone] Social History Tobacco Use Types Packs/Day Years [...] Endocrine: NL Hematologic: NL Immunologic: Drug Allergy Entry Level Paralegal: Exposures: None Other: Attestation: Base Eye Exam [...] Normal Normal Refraction Wearing Rx Sphere Cylinder [place] Add Right -1.50 +1.50 179 +2.25 Left +0.25 +1.00 179 +2.25 Manifest Refraction Sphere Cylinder [place] Right -1.75 +1.00 005 Left +0.50 +1.25 [...] BOTH EYES (08/23/2021 11:41 EDT) Specimen Narrative [facility] POINT OF CARE - 08/23/2021 11:41 E DT Indication: Age-related macular degeneration Fundus/disc photo: Right: geographic atr ophy- small increase in atrophy inferior to center of macula Left: geographic atrophy, no significant change from prior. Performing Organization Address City/State/ZIP Code Phon e Number [facility] POINT OF CARE documented in this [...] Periphery Normal Normal Wearing Rx Sphere Cylinder [place] Add Right eye -1.50 +1.50 179 +2.25 Left eye +0.25 +1.00 179 +2.25 Manifest Refraction Sphere Cylinder [place] Right eye -1.75 +1.00 005 Left eye +0.50 +1.25 [facility] Care Teams Central Services Tech Relationship Specialty Start Date End Date Raquel Martin PA-C PCP - General 08/28/17 [address] [place] [phone] documented as of this encounter
--- OUTSIDE RECORDS SUMMARY | 2021-12-12 11:15 | XMS_ITS | Encounter Summary ---
:1940 Author Organization [facility] Address [address] [place] [address] Care Team Providers Name Role Phone Raquel Martin PA-C Primary Care Provider [phone] Encounter Details Date Type Department Care Team Description 05/01/2020 Lab Requisition [facility] Outr Resulting Lab, Pathology & Laboratory Provider [facility] [address] [place], [place] [id number] Social History Tobacco Use Types Packs/Day Years [...] documented in this encounter Results COVID-19 TEST [facility] LAB PCR (05/01/2020 11:20 EST) Specimen Swab - Entire nasopharynx (body structur e) Performing Organization Address City/State/ZIP Code Phon e Number [facility] [address] [place] [address] SERVICES COVID-19 TESTING (05/01/2020 11:20 EST) COVID-19 rt-PCR Negative Negative [facility] MEDICAL Result Comment: CENTER LABORATORY This [...] developed and its performance characteristics determined by [facility]. It has not been cleared [...] defined by the FDA Performed on the Zeptor 7 Flex RT-PCR System. Performing Lab [facility] Lab [facility] SERVICES Specimen Swab Performing Organization Address City/State/ZIP Code Phon e Number [facility] [address] [place] [address] SERVICES documented in this encounter Visit Diagnoses Not on filedocumented in this encounter Care Teams Wire Coating Operator Metal Relationship Specialty Start Date End Date Raquel Martin PA-C PCP - General 08/28/17 [address] [place] [phone] documented as of this encounter
--- OUTSIDE RECORDS SUMMARY | 2021-12-12 11:15 | XMS_ITS | Encounter Summary ---
:1940 Author Organization [facility] Address [address] [place] [address] Care Team Providers Name Role Phone Raquel Martin PA-C Primary Care Provider [phone] Encounter Details Date Type Department Care Team [...] on filedocumented in this encounter Care Teams Machine Stitcher Relationship Specialty Start Date End Date Raquel Martin PA-C PCP - General 08/28/17 [address] [place] [phone] documented as of this encounter
--- OUTSIDE RECORDS SUMMARY | 2021-12-12 11:15 | XMS_ITS | Encounter Summary ---
:1940 Author Organization [facility] Address [address] [place] [address] Care Team Providers Name Role Phone Raquel Martin PA-C Primary Care Provider [phone] Encounter Details Date Type Department Care Team Description 09/10/2019 Lab Requisition [facility] Michelle Kruger, En counter for other Pathology & MD general examination Laboratory Medicine [address] [facility] ,[address] [place] [address] Social History Tobacco Use Types Packs/Day Years [...] Procedure Name Priority Date/Time Associated Comments Diagnosis PAP TEST Today 09/09/2019 10:20 Encounter for other Resu lts for this EDT general examination procedur e are in the results section. HUMAN PAPILLOMAVIRUS Today 09/09/2019 10:20 Encounter for ot her Results for this (HPV) DETECTION-HIGH EDT general examination procedure are in RISK TYPES the results section. documented in this encounter Results HUMAN PAPILLOMAVIRUS (HPV) DETECTION-HIGH RISK TYPES (09/09/2019 10:20 EDT) Pathologist Sig nature Human Papillomavirus Negative Negative [facility] (HPV) Detection-High LABORATORY SERVICES Types Specimen Pap Test - Cervix and/or Endocervix Performing Organization Address City/State/ZIP Code Phon e Number [facility]ORY [address] [place] [address] SERVICES PAP TEST (09/09/2019 10:20 EDT) Specimens A. Cervix and/or [facility] Endocervix , ThinPrep CENTER Imaging System with LABORATORY Manual Evaluation SERVICES Specimen Adequacy Satisfactory for [facility] MEDICAL Evaluation - CENTER assessment of LABORATORY transformation zone SERVICES component not applicable ( e.g. atrophy, vaginal sample, hysterectomy) General Negative for [facility] intraepithelial CENTER lesion or malignancy LABORATORY SERVICES Attestation . [facility] Electronically CENTER signed by NETTA Meyer CT(ASCP) on SERVICES 09/19/2019 at 16 20 Clinical History SEE ORDER COMMENTS [facility] LABORATORY SERVICES HPV The result for the Human Pap illomavirus (HPV) Detection-High Risk Types is Negative. No E6 or E7 mRNA is detected from HPV types 16,18,31,33,35,39,45,51,52,56,58,59,66, and 68 by rug drying machine operator mediated [facility] amplification.Testing was pe rformed on specimen [id number] and was resulted on 09/19/2019 1616 EDT by HASMUKH, LAB INSTRUMENT RESULTS IN [facility] LABORATORY SERVICES Scanned Images [facility] LABORATORY SERVICES Specimen Pap Test - Cervix and/or Endocervix Performing Organization Address City/State/ZIP Code Phon e Number [facility] CENTER LABORATORY [address] [place] [address] SERVICES documented in this encounter Visit Diagnoses Diagnosis Encounter for other general examination documented in this encounter Care Teams Science Liaison Relationship Specialty Start Date End Date Raquel Martin PA-C PCP - General 08/28/17 [address] [place] [address] documented as of this encounter
--- OUTSIDE RECORDS SUMMARY | 2021-12-12 11:15 | XMS_ITS | Encounter Summary ---
:1940 Author Organization [facility] Address [address] [place] [address] Care Team Providers Name Role Phone Raquel Martin PA-C Primary Care Provider Encounter Details Date Type Department Care Team Description 12/30/2019 Lab Requisition [facility] Britt Kelsey for other Pathology & MD John general examination Laboratory Medicine [address] [place], [place] [address] [facility] [address] [place] [phone] Social History Tobacco Use Types Packs/Day Years [...] 8:18 EDT) Final Diagnosis A. GALLBLADDER, CHOLECYSTECTOMY: [facility] EDICAL - Chronic cholecystitis and cholelithiasis. CENTER - Deeper sections x3 examined. LABORATORY - SEE COMMENT. SERVICES Diagnosis Comment Human Capital Manager slides of jeison s case were reviewed at the gastrointestinal/liver intradepartmental consultation conference. (RW) [facility] LABORATORY SERVICES Attestation There was significant [facility] MEDICAL Electr onically resident/fellow CENTER signed by Ab navin Santos involvement in the LABORATORY Agnieszka Summers on diagnostic evaluation SERVICES 2019 at 1634 of this case. By the signature below, the attending physician certifies that they have personally conducted a gross and/or microscopic examination of the described specimens and rendered or confirmed the above diagnosis. Clinical History Biliary colic [facility] LABORATORY SERVICES Gross Description A. [facility] MEDICAL Received in formalin jaz d with proper patient identification (initials G, J) and gallbladder [id number] is an intact gallbladder with an attached [...] than 0.1 cm in greatest dimension). Three community relations representative section s and the en face cystic duct margin and the possible cystic duct lymph node are submitted in A1. Three additional sections of the gallbladder are submi tted in A2. Pedro Knox MD 12/31/2019 15:49 Resident/Fellow: Pedro Knox MD [facility] LABORATORY SERVICES Performing Lab [facility] LABORATORY SERVICES Scanned Images [facility] LABORATORY SERVICES Specimen Tissue - Entire gallbladder (body struct ure) Performing Organization Address City/State/ZIP Code Phon e Number [facility]OR[facility]ORY [address] [place] [address] SERVICES documented in this encounter Visit Diagnoses Diagnosis Encounter for other general examination documented in this encounter Care Teams Doll Eye Setter Relationship Specialty Start Date End Date Raquel Martin PA-C PCP - General 08/28/17 [address] [place] [address] documented as of this encounter
--- OUTSIDE RECORDS SUMMARY | 2021-12-12 11:16 | XMS_ITS | Encounter Summary ---
:1940 Author Organization [facility] Address [address] [place] [address] Care Team Providers Name Role Phone Raquel Martin PA-C Primary Care Provider [phone] Encounter Details Date Type Department Care Team Description 08/28/2017 Phlebotomy Only [facility] Building PrincipalPamela field defect - [facility] Outpatient (Primary Dx) [address] [place], [place] [phone] Social History Tobacco Use Types Packs/Day Years [...] EDT) Homocysteine 25.0 (H) 4.5 - 12.4 [facility] Comment: umol/L LABORATORY Results may be [...] Organization Address City/State/ZIP Code Phon e Number [facility] LABORATORY [address] [place] [address] SERVICES PROTEIN S ACTIVITY (08/28/2017 11:09 EDT) Protein S 147 64 - 147 % [facility] Activity Comment: LABORATORY SERVICES a. ??Acquired [...] Organization Address City/State/ZIP Code Phon e Number [facility] LABORATORY [address] [place] [address] SERVICES (ABNORMAL) HEMAGRAM AND DIFFERENTIAL (08/28/2017 11:09 EDT) Pathologist Sig nature WBC 4.32 4.0 - 12.4 [facility] LABORATORY SERVICES RBC 4.13 3.86 - 5.04 [facility] LABORATORY SERVICES Hemoglobin 12.9 11.6 - 15.2 [facility] gm/dl LABORATORY SERVICES HCT 38.8 34.9 - 44.4 % [facility] LABORATORY SERVICES MCV 94 81 - 98 fl [facility] LABORATORY SERVICES MCH 31.2 26.7 - 33.3 pg [facility] LABORATORY SERVICES MCHC 33.2 32.1 - 35.9 [facility] gm/dl LABORATORY SERVICES RDW-CV 12.5 <14.7 % [facility] LABORATORY SERVICES RDW-SD 43.6 <50.4 fl [facility] LABORATORY SERVICES PLT 231 141 - 377 K/[facility] LABORATORY SERVICES MPV 9.6 9.5 - 12.7 fl [facility] LABORATORY SERVICES Neutrophils 66.9 % [facility] LABORATORY SERVICES Lymphocytes 22.9 % [facility] LABORATORY SERVICES Monocytes 8.8 % [facility] LABORATORY SERVICES Eosinophils 0.7 % [facility] LABORATORY SERVICES Basophils 0.5 % [facility] LABORATORY SERVICES Immature Grans 0.2 % [facility] LABORATORY SERVICES ABS Neutrophils 2.89 2.20 - 8.85 [facility] K/[facility] LABORATORY SERVICES ABS Lymphs 0.99 (L) 1.09 - 3.30 [facility] LABORATORY SERVICES ABS Monocytes 0.38 0.1 - 0.8 K/m [facility] LABORATORY SERVICES ABS Eosinophils 0.03 0.03 - 0.61 [facility] K/[facility] LABORATORY SERVICES ABS Basophils 0.02 0.01 - 0.11 [facility] LABORATORY SERVICES ABS Immature Grans 0.01 0 - 0.06 /[facility] LABORATORY SERVICES Type of Diff: Automated [facility] LABORATORY SERVICES Specimen Blood specimen (specimen) - Blood Performing Organization Address [facility]/ZIP [facility] Phon e Number [facility] LABORATORY [address] [place] [address] SERVICES SYPHILIS SEROLOGY (08/28/2017 11:09 EDT) Pathologist [facility] Syphilis Serology NegativeComment: [facility] Reference Range: LABORATORY SERVICES Negative Specimen Blood specimen (specimen) - Blood Performing Organization Address [facility] Phon e Number [facility] LABORATORY [address] [place] [address] SERVICES ANGIOTENSIN CONVERTING ENZYME (DES) (08/28/2017 11:09 EDT) Angiotensin 17 8 - 53 U/L [facility] Converting Enzyme Comment: LABORATORY Performed or Referred by: [facility], [address] [place] [address], Lab Dir: Nimesh Osorio I I, M.D., Ph.D. Specimen Blood specimen (specimen) - Blood Performing Organization Address [facility]/ZIP [facility] Phon e Number [facility] LABORATORY [address] [place] [address] SERVICES SED. RATE:WESTERGREN (08/28/2017 11:09 EDT) Pathologist Sig nature Sed. Rate Westergren 2 0 - 30 mm/hr [facility] LABORATORY SERVICES Specimen Blood specimen (specimen) - Blood Performing Organization Address City/[facility]/ZIP [facility] Phon e Number [facility] LABORATORY [address] [place] [address] SERVICES BUN (08/28/2017 11:09 EDT) Pathologist Sig nature BUN 17 10 - 26 mg/dl [facility] LABORATO RY SERVICES Specimen Blood specimen (specimen) - Blood Performing Organization Address City/[facility]/ZIP [facility] Phon e Number [facility] LABORATORY [address] [place] [address] SERVICES FOLATE (08/28/2017 11:09 EDT) Pathologist Sig nature Folate 19.1 ng/ml [facility] Comment: LABORATORY SERVICES Deficient: ??Less than 3.4 ng/mL Indeterminate: ??3.4-5.4 ng/mL Normal: ??Greater than 5.4 ng/mL The results of this assay can be falsely elevated due to the consumption of Biotin. Specimen Blood specimen (specimen) - Blood Performing Organization Address [facility]/ZIP Code Phon e Number [facility] LABORATORY [address] [place] [address] SERVICES CREATININE (08/28/2017 11:09 EDT) Creatinine 0.80 0.52 - 1.04 [facility] mg/dl LABORATORY SERVICES GFR, Calculated 72 >60 [facility] Comment: ml/min/1.73m2 LABORATORY eGFR calculated using CKD-EPI equation for SERVICES non Americans. Multiply eGFR by 1.16 for Americans. Specimen Blood specimen (specimen) - Blood Performing Organization Address [facility]/ZIP Code Phon e Number [facility] LABORATORY [address] [place] [address] SERVICES C REACTIVE PROTEIN (08/28/2017 11:09 EDT) Pathologist Sig nature C Reactive Protein <7.0 <10.0 mg/L [facility] LABORATORY SERVICES Specimen Blood specimen (specimen) - Blood Performing Organization Address [facility] Phon e Number [facility] LABORATORY [address] [place] [address] SERVICES (ABNORMAL) METHYLMALONIC ACID (08/28/2017 11:09 EDT) Methylmalonic Acid 0.84 (H) <=0.40 [facility] Comment: nmol/mL CENTER (Note) LABORATORY In this sample, the concentration of methylmalonic aci d SERVICES (MMA) was elevated. This finding is likely related to vitamin B12 deficiency. . ADDITIONAL INFORMATION ------ This test was developed and its performance characteri stics determined by [facility] in a manner consistent with CLIA requirements. This test has not been cleared or approv ed by the U.S. Food and Drug Administration. Performed or Referred by: [facility], [address] [place] [address], Lab Dir: Nimesh junior II, M.D., Ph.D. Specimen Blood specimen (specimen) - Blood Performing Organization Address City/[facility]/ZIP Code Phon e Number [facility] LABORATORY [address] [place] [address] SERVICES VITAMIN B12 (08/28/2017 11:09 EDT) Vitamin B-12 215 211 - 911 [facility] Comment: pg/ml LABORATORY SERVICES The results of this assay can be falsely lowered due to the consumption of Biotin. Specimen Blood specimen (specimen) - Blood Performing Organization Address [facility] e Number [facility] LABORATORY [address] [place] [address] SERVICES VITAMIN A, S (08/28/2017 11:09 EDT) Vitamin A 60.6 32.5 - 78.0 [facility] Comment: mcg/dL LABORATORY (Note) SERVICES . ADDITIONAL INFORMATION ------ This test was developed and its performance characteri stics determined by [facility] in a manner consistent with CLIA requirements. This test has not been cleared or approv ed by the U.S. Food and Drug Administration. Performed by: [facility] Labs: [facility] [address], [place] [address], Lab Dir: Nimesh Osorio II, M.D., Ph.D. Specimen Blood specimen (specimen) - Blood Performing Organization Address City/[facility]/ZIP [facility] Phon e Number [facility] LABORATORY [address] [place] [address] SERVICES documented in this encounter Visit Diagnoses Diagnosis Visual field defect - Primary Visual field defect, unspecified documented in this encounter Care Teams Tea Tree Farmer Relationship Specialty Start Date End Date Raquel Martin PA-C PCP - General 08/28/17 [address] [place] [address] documented as of this encounter
--- OUTSIDE RECORDS SUMMARY | 2021-12-12 11:16 | XMS_ITS | Encounter Summary ---
:1940 Author Organization [facility] Address [address] [place] [address] Care Team Providers Name Role Phone Raquel Martin PA-C Primary Care Provider [phone] Encounter Details Date Type Department Care Team Description 01/21/2019 Documentation Visit [facility] Sohail Chaudhry Ophthalmology - Paddy Vasquez MD [address] [phone] [facility] [address] [place] [address] (Wo rk) Social History Tobacco [...] Chaudhry MD - 01/21/2019 0000 EDT [facility] NEURO-OPHTHALMOLOGY January 21, 2019 Raquel Martin PA-C [address] [address] RE: REHAN FRITZ : 1940 Dear Garfieldtiffaniesamra: [...] concerns. Sincerely, Sohail Chaudhry MD Diplomate, the [employer] rn occupational health Department of Ophthalmology NEURO-OPHTHALMOLOGY cc: Raquel Martin PA-C, [address] [address] documented in this encounter Plan of Treatment Not on filedocumented as of this encounter Visit Diagnoses Not on filedocumented in this encounter Care Teams Security Sergeant Relationship Specialty Start Date End Date Raquel Martin PA-C PCP - General 6/5/18 [address] [place] [address] documented as of this encounter
--- OUTSIDE RECORDS SUMMARY | 2021-12-12 11:16 | XMS_ITS | Encounter Summary ---
:1940 Author Organization [facility] Address [address] [place] [address] Care Team Providers Name Role Phone Raquel Martin PA-C Primary Care Provider Reason for Visit Reason Onset Date Comments Appointment Related 10/11/2017 Encounter Details Date Type Department Care Team Description 10/11/2017 Telephone [facility] NEUROSURGE Dennis Gan MD Appointment Related [address] [facility] [address] [phone] [facility] [address] [place] [address] (Wo rk) Social History Tobacco [...] with the following appointment details: 10/18/17 - [facility] Appointment at 2:30pm with Dr. Dennis [...] on filedocumented in this encounter Care Teams Bottle Label Inspector Relationship Specialty Start Date End Date Raquel Martin PA-C PCP - General 08/28/17 [address] [place] [address] documented as of this encounter
--- OUTSIDE RECORDS SUMMARY | 2021-12-12 11:16 | XMS_ITS | Encounter Summary ---
:1940 Author Organization [facility] Address [address] [place] [address] Care Team Providers Name Role Phone Raquel Martin PA-C Primary Care Provider [phone] Reason for Visit Reason Onset Date Comments Appointment Related 09/25/2017 Encounter Details Date Type Department Care Team Description 09/25/2017 Telephone [facility] Dennis Henao Ap pointment Related Neurosurgery - [address] [address] [address], [place] [phone] (Wo rk) Social History Tobacco Use Types [...] on filedocumented in this encounter Care Teams Voip Network Engineer Relationship Specialty Start Date End Date Raquel Martin PA-C PCP - General 08/28/17 [address] [place] [phone] documented as of this encounter
--- OUTSIDE RECORDS SUMMARY | 2021-12-12 11:16 | XMS_ITS | Encounter Summary ---
:1940 Author Organization [facility] Address [address] [place] [address] Care Team Providers Name Role Phone Raquel Martin PA-C Primary Care Provider [phone] Encounter Details Date Type Department Care Team Description 12/18/2017 Hospital Encounter [facility] - Dennis Henao, [facility] 111 [facility] [address] [place], [place] [address] [place] [address] [address], [address] [place] [address] (Wo rk) Social History Tobacco [...] on filedocumented in this encounter Care Teams Angle Shear Set Up Operator Relationship Specialty Start Date End Date Raquel Martin PA-C PCP - General 08/28/17 [address] [place] [address] documented as of this encounter
--- OUTSIDE RECORDS SUMMARY | 2021-12-12 11:16 | XMS_ITS | Encounter Summary ---
:1940 Author Organization [facility] Address [address] [place] [address] Care Team Providers Name Role Phone Raquel Martin PA-C Primary Care Provider [phone] Reason for Visit Reason Comments Eye Problem Visual field defect.?Here for CT scan review.?No eye pain, flashing, floaters.?Umberto nues to have darkening of vision centrally left eye.?Right eye edwardo joya. Encounter Details Date Type Department Care Team Description 09/14/2017 Office Visit [facility] Sohail Chaudhry, Ophthalmology - [facility] [address] [address] [place], [place] [address] (Wo rk) Social History Tobacco [...] Beltre MD - 09/14/2017 0000 EDT [facility] NEURO-OPHTHALMOLOGY PROGRESS / FOLLOWUP NOTE - [...] or concerns. Sohail Chaudhry MD Diplomate, the [place] Board of Psychiatry & Neurology associate professor of counseling Department of Ophthalmology NEURO-OPHTHALMOLOGY cc: Raquel Martin PA-C, [address] [address] documented in this encounter Plan of Treatment [...] Oriented x3: Yes Mood/Affect: Normal Care Teams Professor Of Environmental Engineering Relationship Specialty Start Date End Date Raquel Martin PA-C PCP - General 08/28/17 [address] [place] [address] documented as of this encounter
--- OUTSIDE RECORDS SUMMARY | 2021-12-12 11:16 | XMS_ITS | Encounter Summary ---
:1940 Author Organization [facility] Address [address] [place] [address] Care Team Providers Name Role Phone Raquel Martin PA-C Primary Care Provider [phone] Encounter Details Date Type Department Care Team Description 10/10/2017 Hospital Encounter [facility] Don Vela [facility] MD Pedro 111 [facility] [address] [place] [address] Avenue [phone] [facility] 1 [place] [address] (Wo rk) Social History Tobacco [...] Mynx will completely absorbed by your body [id number] days, leaving nothing behind but a healed [...] a message for them to call IR financial aid officer [phone]) for pre-procedure instructions [phone]. If patient should call back, the following [...] -Due to sedation patient must have a bicycle taxi driver (bus or taxi is not allowed) [...] past couple of months. She saw her ore dryer who referred her to our broker,Dr Sohail Chaudhry, who saw macular degeneration due [...] today by he r neighbor and her [id number] who have several questions regarding her aneurysm and its treatment. She denies any headaches, any dizziness, any family history of aneurysms or sudden . She is currently a nonsmoker. She quit smoking 10 years ago with a 11-[id number]-vvuu smoking history. Her only medical history is [...] load: 45 cc SURGEONS: Don Vela MD Physician Office Clin Asst: Arron Mera, RT ANESTHESIA: IV sedation with versed and fentanyl PRELIMINARY FINDINGS: A time-out was completed prior to procedure verifying correct patient, procedure, site, positioning,and special equipment if applicable. 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 No other aneurysm seen. COMPLICATIONS: None PLAN: Bedrest for [address] Follow up with Dr. Henao for surgery as directed. Dr. Don Vela Neurointerventional Radiology [facility] documented in this encounter Plan of [...] 10/10/2017 documented in this encounter Care Teams Director College Relationship Specialty Start Date End Date Raquel Martin PA-C PCP - General 08/28/17 [address] [place] [address] documented as of this encounter
--- OUTSIDE RECORDS SUMMARY | 2021-12-12 11:16 | XMS_ITS | Encounter Summary ---
:1940 Author Organization [facility] Address [address] [place] [address] Care Team Providers Name Role Phone Raquel Martin PA-C Primary Care Provider [phone] Reason for Visit Reason Onset Date Comments Other 11/11/2018 Encounter Details Date Type Department Care Team Description 11/11/2018 Telephone [facility] Sharri Henao MD Other Neurosurgery - [address] [address] [place], [place] [address] (Wo rk) Social History [...] on filedocumented in this encounter Care Teams Plant Science Professor Relationship Specialty Start Date End Date Raquel Martin PA-C PCP - General 08/28/17 [address] [place] [address] documented as of this encounter
--- OUTSIDE RECORDS SUMMARY | 2021-12-12 11:16 | XMS_ITS | Encounter Summary ---
:1940 Author Organization [facility] Address [address] [place] [address] Care Team Providers Name Role Phone Raquel Martin PA-C Primary Care Provider [phone] Reason for Visit Reason Onset Date Comments Post-OP Follow Up 11/22/2017 Encounter Details Date Type Department Care Team Description 11/22/2017 Telephone [facility] Sharri Henao MD Post-OP Follow Up Neurosurgery - [address], [address], [address] [place], [place] [address] [place] [address] [phone] (Wo rk) Social History Tobacco Use [...] following appointment details with Rehan: 12/18/17 - [facility] Diana Check in at 9am at registration CT at 9:30am POV at 11am with Carmen Rodriguez, PAC Rehan verbalized understanding and denied having any questions. elephone Encounter - Alea Kessler - 11/27/2017 1134 EDT Patient would like CT and labs done at [facility] if possible. elephone Encounter - Lucia Olvera - 11/22/2017 1508 EDT Left message for [facility] letting them know that the post- op appointment should be with Carmen. I told them we would let them know if she can have the scan closer to the rehab facility. documented in this encounter Plan of Treatment Not on filedocumented as of this encounter Visit Diagnoses Not on filedocumented in this encounter Care Teams Southeast Regional Sales Manager Relationship Specialty Start Date End Date Raquel Martin PA-C PCP - General 08/28/17 [address] [place] [address] documented as of this encounter
--- OUTSIDE RECORDS SUMMARY | 2021-12-12 11:16 | XMS_ITS | Encounter Summary ---
:1940 Author Organization [facility] Address [address] [place] [address] Care Team Providers Name Role Phone Raquel Martin PA-C Primary Care Provider [phone] Reason for Visit Reason Comments Follow-up aneurysm, IR 10/10/17 Encounter Details Date Type Department Care Team Description 10/18/2017 Office Visit [facility] Dennis Henao Ce rebral aneurysm, Neurosurgery - Main nonruptured (Primary [place] [address] [place] [address]) [address] [place], [place] [address] [place] [address] [place], Level 5 [place] [phone] (Wo rk) Social History Tobacco Use Types [...] 4 PM, Sunday through Sunday. Triage line [phone]. 17. After hours, there is always a doctor television producer for emergencies or go to your local [...] Bishop MD - 10/18/2017 0000 EDT [facility] NEUROLOGICAL SURGERY PROGRESS / FOLLOWUP NOTE - 10/18/2017 Raquel Martin PA-C [address] [address] Dear Veronica: I had the pleasure of [...] - Dennis Henao MD an Dictation ID: [id number] cc: Raquel Martin PA-C, [facility] [address] [place] [address] Sohail Chaudhry MD, [facility] - Ophthalmology [address] [place] [id number] signed by Dennis Henao MD at 10/20/2017 10:35 EDTdocumented in this encounter Plan of Treatment Not on filedocumented as of this encounter Visit Diagnoses Diagnosis Cerebral aneurysm, nonruptured - Primary documented in this encounter Care Teams Religious Education Teacher Relationship Specialty Start Date End Date Raquel Martin PA-C PCP - General 08/28/17 [address] [place] [address] documented as of this encounter
--- OUTSIDE RECORDS SUMMARY | 2021-12-12 11:16 | XMS_ITS | Encounter Summary ---
:[address] [facility] Address [address] [place] [address] Care Team Providers Name Role Phone Raquel Martin PA-C Primary Care Provider [phone] Reason for Referral Consult (Routine) - Specialty Report Received Specialty Diagnoses / Procedures Referred By Contact Refer red To Contact Neurosurgery Diagnoses Aneurysm of anterior cerebral artery Sohail Chaudhry Tranmer, Bruce Ia n, MD MD [address] [place] [phone] Referral ID Status Reason Start Expiration Visits Visits Date Date Requested Authorized [id number] Specialty Specialty 09/20/2017 1 1 Report Services Received Required Question Answer Reason for Request: AUDRA aneurysm Encounter Details Date Type Department Care Team Description 09/20/2017 Orders Only [facility] Sohail Chaudhry Aneurysm of anterior Ophthalmology - Paddy Vasquez MD cerebral artery [address] (Primary Dx) [address] [place] [address] [address] (Wo rk) Social History Tobacco [...] nonruptured documented in this encounter Care Teams Maintenance Instructor Relationship Specialty Start Date End Date Raquel Martin PA-C PCP - General 08/28/17 [address] [place] [address] documented as of this encounter
--- OUTSIDE RECORDS SUMMARY | 2021-12-12 11:16 | XMS_ITS | Encounter Summary ---
:1940 Author Organization [facility] Address [address] [place] [address] Care Team Providers Name Role Phone Raquel Martin PA-C Primary Care Provider [phone] Reason for Visit Reason Onset Date Comments Other 01/14/2019 Encounter Details Date Type Department Care Team Description 01/14/2019 Telephone [facility] Isidoro, Sohail Vasquez, Other Ophthalmology - [facility] 111 [facility] [address] [phone] [place], [address] [place] [address] (Wo rk) Social History Tobacco [...] in this encounter Care Teams Director Of Teacher Education Relationship Specialty Start Date End Date Raquel Martin PA-C PCP - General 08/28/[address] [place] [address] documented as of this encounter
--- OUTSIDE RECORDS SUMMARY | 2021-12-12 11:16 | XMS_ITS | Encounter Summary ---
:1940 Author Organization [facility] Address [address] [place] [address] Care Team Providers Name Role Phone Raquel Martin PA-C Primary Care Provider Encounter Details Date Type Department Care Team Description 12/18/2018 Hospital Encounter [facility] MD Pedro 111 [facility] [address] [phone] [place], [address] [place] [address] (Wo rk) Social History Tobacco [...] on filedocumented in this encounter Care Teams Restorer Lace And Textiles Relationship Specialty Start Date End Date Raquel Martin PA-C PCP - General 08/28/17 [address] [place] [address] documented as of this encounter
--- OUTSIDE RECORDS SUMMARY | 2021-12-12 11:16 | XMS_ITS | Encounter Summary ---
:1940 Author Organization [facility] Address [address] [place] [address] Care Team Providers Name Role Phone Raquel Martin PA-C Primary Care Provider [phone] Reason for Visit Reason Comments Eye Problem Encounter Details Date Type Department Care Team Description 01/22/2019 Office Visit [facility] Sohail Chaudhry, Ophthalmology - [facility] [address] [place] [address], [facility] [place] [place] [phone] (Wo rk) Social History Tobacco Use Types [...] been dictated. I spent 30 minutes in [id number] conversation and discussion, with more than 50% of that time used for counseling and coordination of care. Sohail Beltre MD - 01/22/2019 0000 EDT [facility] NEURO-OPHTHALMOLOGY PROGRESS / FOLLOWUP NOTE [...] or concerns. Sohail Chaudhry MD Diplomate, the [place] Board of Psychiatry & Neurology mixer attendant Department of Ophthalmology NEURO-OPHTHALMOLOGY documented in this [...] heme, HE or SSF heme Care Teams Securities Trader Relationship Specialty Start Date End Date Raquel Martin PA-C PCP - General 08/28/17 [address] [place] [address] documented as of this encounter
--- OUTSIDE RECORDS SUMMARY | 2021-12-12 11:16 | XMS_ITS | Encounter Summary ---
:1940 Author Organization [facility] Address [address] [place] [address] Care Team Providers Name Role Phone Raquel Martin PA-C Primary Care Provider [phone] Reason for Visit Reason Onset Date Comments Appointment Related 02/06/2018 Encounter Details Date Type Department Care Team Description 02/06/2018 Telephone [facility] Sohail Chaudhry ent Related Ophthalmology - MD [address] [phone] [facility] Level [address] [place] [address] (Wo rk) Social History Tobacco [...] then would be fine to f/u at [facility]. If any problems arise or return,would have them come here. S/W Gilma at [facility] - relayed above, she will let the pt know. elephone Encounter - Maddsion Kerns - 02/06/2018 1328 EST [facility] is asking if the patient needs to follow up with Dr. Chaudhry. Originally, Dr. Chaudhry wanted to see Ms. 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 The patient is under the impression that follow up with Dr. Chaudhry is no longer needed and she can follow up with [facility]. They would like a return call to confirm this is OK. Patient prefers not to have to make the trip to [place]. documented in this encounter Plan of Treatment Not on filedocumented as of this encounter Visit Diagnoses Not on filedocumented in this encounter Care Teams Clockmaker Relationship Specialty Start Date End Date Raquel Martin PA-C PCP - General 08/28/17 [address] [place] [address] documented as of this encounter
--- OUTSIDE RECORDS SUMMARY | 2021-12-12 11:16 | XMS_ITS | Encounter Summary ---
:1940 Author Organization [facility] Address [address] [place] [address] Care Team Providers Name Role Phone Raquel Martin PA-C Primary Care Provider Reason for Visit Reason Onset Date Comments Other 12/10/2018 Encounter Details Date Type Department Care Team Description 12/10/2018 Telephone [facility] Isidoro, Sohail Vasquez, Other Ophthalmology - [address], MD [address] [phone] [facility] Level 5 [place] [address] (Wo rk) Social History Tobacco [...] Marii Barreto's office just faxed to the [facility] information for Dr. Chaudhry to review and then callDr. Barreto back. documented in this encounter Plan of Treatment Not on filedocumented as of this encounter Visit Diagnoses Not on filedocumented in this encounter Care Teams Incident Coordinator Relationship Specialty Start Date End Date Raquel Martin PA-C PCP - General 08/28/17 [address] [place] [address] documented as of this encounter
--- OUTSIDE RECORDS SUMMARY | 2021-12-12 11:16 | XMS_ITS | Encounter Summary ---
:1940 Author Organization [facility] Address [address] [place] [address] Care Team Providers Name Role Phone Raquel Martin PA-C Primary Care Provider [phone] Encounter Details Date Type Department Care Team Description 09/14/2017 Hospital Encounter [facility] MD Pedro 111 [facility] [address] [phone] [place], [address] [place] [address] (Wo rk) Social History Tobacco [...] on filedocumented in this encounter Care Teams Planning Lead Relationship Specialty Start Date End Date Raquel Martin PA-C PCP - General 08/28/17 [address] [place] [address] documented as of this encounter
--- OUTSIDE RECORDS SUMMARY | 2021-12-12 11:16 | XMS_ITS | Encounter Summary ---
:1940 Author Organization [facility] Address [address] [place] [address] Care Team Providers Name Role Phone Raquel Martin PA-C Primary Care Provider [phone] Reason for Visit Reason Onset Date Comments Advice Only 01/15/2018 Encounter Details Date Type Department Care Team Description 01/15/2018 Telephone [facility] Debby Polo RN Advice Only Neurosurgery - [place] [address] [place] [address] Social History Tobacco Use Types Packs/Day Years [...] on filedocumented in this encounter Care Teams Morning Caregiver Relationship Specialty Start Date End Date Raquel Martin PA-C PCP - General 08/28/[address] [place] [address] documented as of this encounter
--- OUTSIDE RECORDS SUMMARY | 2021-12-12 11:16 | XMS_ITS | Encounter Summary ---
:1940 Author Organization [facility] Address [address] [place] [address] Care Team Providers Name Role Phone Raquel Martin PA-C Primary Care Provider [phone] Reason for Visit Reason Onset Date Comments Appointment Related 09/18/2017 Encounter Details Date Type Department Care Team Description 09/18/[address] [facility] Sohail Chaudhry ent Related Ophthalmology - Paddy Vasquez MD [address] [phone] [facility] Level [address] [place] [address] (Wo rk) Social History Tobacco [...] Chaudhry know she called and also his office manager executive assistant Eileen. documented in this encounter Plan of Treatment Not on filedocumented as of this encounter Visit Diagnoses Not on filedocumented in this encounter Care Teams Construction Controller Relationship Specialty Start Date End Date Raquel Martin PA-C PCP - General 08/28/17 [address] [place] [address] documented as of this encounter
--- OUTSIDE RECORDS SUMMARY | 2021-12-12 11:16 | XMS_ITS | Encounter Summary ---
:1940 Author Organization [facility] Address [address] [place] [address] Care Team Providers Name Role Phone Raquel Martin PA-C Primary Care Provider [phone] Encounter Details Date Type Department Care Team Description 12/20/2018 Orders Only [facility] Sohail Chaudhry thy (Primary Ophthalmology - Paddy Vasquez MD Dx) [place] [address] [place] [address] [place], Level [address] [place] [address] (Wo rk) Social History Tobacco [...] disorder documented in this encounter Care Teams Heat Treat Furnace Operator Relationship Specialty Start Date End Date Raquel Martin PA-C PCP - General 08/28/17 [address] [place] [address] documented as of this encounter
--- OUTSIDE RECORDS SUMMARY | 2021-12-12 11:16 | XMS_ITS | Encounter Summary ---
:1940 Author Organization [facility] Address [address] [place] [address] Care Team Providers Name Role Phone Raquel Martin PA-C Primary Care Provider [phone] Reason for Visit Reason Comments Post-OP Follow Up aneurysm, CT today Follow Up (Routine) - Authorization Not Required Specialty Diagnoses / Procedures Referred By Contact Refer red To Contact Neurosurgery Diagnoses Cerebral aneurysm, nonruptured Varsha Patrick, Yosef Shields PA-C PA-C [address] [place] [address], Level [address] [place] [phone] Referral ID Status Reason Start Expiration Visits Visits Date Date Requested Authorized [id number] Authorization Specialty 1 1 Not Required Services 8 Required Encounter Details Date Type Department Care Team Description 12/18/2017 Post-op Visit [facility] Carmen Rodriguez aneurysm, nonruptured (Primary Dx); Neurosurgery - [facility] ANGEL Eagle [facility] (subdural hematoma) ([facility]) [place] [address] [place] [address] [place] [address] (Wo rk) Social History Tobacco [...] documented as of this encounter Care Teams Banner Painter Relationship Specialty Start Date End Date Raquel Martin PA-C PCP - General 08/28/17 [address] [place] [address] documented as of this encounter
--- OUTSIDE RECORDS SUMMARY | 2021-12-12 11:16 | XMS_ITS | Encounter Summary ---
:1940 Author Organization [facility] Address [address] [place] [address] Care Team Providers Name Role Phone Raquel Martin PA-C Primary Care Provider [phone] Reason for Visit Reason Comments Eye Exam Eval of AMD Encounter Details Date Type Department Care Team Description 01/22/2019 Office Visit [place] Ted Babin MD Ophthalmology - [address], [address], [address] [place], [place] [address] [place] [address] [phone] (Wo rk) Social History Tobacco Use [...] major study sponsored by the National Eye [place] (NEI), one of the Federal Government's National Institutes of Health, and conducted at 11 [facility] research facilities around the country. In the [...] AREDS is available from the National Eye [place] of the National Institutes ofHealth, www.nei.nih.gov/amd. Your Eye M.D. is your best source of information about eye care. You can also get trustworthy information from the [place] [employer]hthalmology's partner Web site, [employer] www.[employer] [place] [employer]/MedLB/bufferpage aao.cfm. -What Should You Buy? To try [...] discolored, or otherwise abnormal, please call your collector of aquarium specimens at [facility] right away @ [phone]. 6. Do the test for each eye [...] Justin Santos - 01/22/2019 0000 EDT THE OPHTHALMOLOGY January 22, 2019 Sohail Chaudhry MD [facility] - Ophthalmology [address] [place] [address] RE: REHAN FRITZ : [address] [...] - Justin Babin MD ln Dictation ID: [id number] cc: Raquel Martin PA-C, [address] [address] Sohail Chaudhry MD, [place] - Ophthalmology [address] [place] [address] Myles Trejo MD, [facility] [address], [address], [place] [address] documented in this encounter Plan of Treatment [...] heme, HE or SSF heme Care Teams Director Clinical Operations Relationship Specialty Start Date End Date Raquel Martin PA-C PCP - General 08/28/17 [address] [place] [address] documented as of this encounter
--- OUTSIDE RECORDS SUMMARY | 2021-12-12 11:16 | XMS_ITS | Encounter Summary ---
:1940 Author Organization [facility] Address [address] [place] [address] Care Team Providers Name Role Phone [facility] Provider [phone] Reason for Visit Reason Onset Date Comments Appointment Related 12/19/2017 Encounter Details Date Type Department Care Team Description 12/19/[address] [facility] Carmen Rodriguez A ppointment Related Neurosurgery - [facility] [place] [address] [place] [address] [place] [address] [place], [place] [address] [place] [address] [phone] (Wo rk) Social History Tobacco Use [...] on filedocumented in this encounter Care Teams Clinical Services Manager Relationship Specialty Start Date End Date Raquel Martin PA-C PCP - General 08/28/17 [address] [place] [address] documented as of this encounter
--- OUTSIDE RECORDS SUMMARY | 2021-12-12 11:16 | XMS_ITS | Encounter Summary ---
:1940 Author Organization [facility] Address [address] [place] [address] Care Team Providers Name Role Phone Raquel Martin PA-C Primary Care Provider [phone] Encounter Details Date Type Department Care Team Description 01/01/2018 Hospital Encounter [facility] - [facility], [place] Eagle, [facility] ANGEL 111 [facility] 111 [place] [address] [place] [address] [place] [phone] (Wo rk) Social History Tobacco Use Types [...] on filedocumented in this encounter Care Teams Header Machine Operator Relationship Specialty Start Date End Date Raquel Martin PA-C PCP - General 08/28/17 [address] [place] [address] documented as of this encounter
--- OUTSIDE RECORDS SUMMARY | 2021-12-12 11:16 | XMS_ITS | Encounter Summary ---
:1940 Author Organization [facility] Address [address] [place] [address] Care Team Providers Name Role Phone Raquel Martin PA-C Primary Care Provider [phone] Reason for Visit Reason Onset Date Comments Appointment Related 12/24/2018 Encounter Details Date Type Department Care Team Description 12/24/2018 Telephone [facility] Unknown, Appointme nt Related Neurophysiology - Main Provider, [place] [phone] [address] [facility] ([place]) [place] [address] [phone] Social History Tobacco Use Types Packs/Day Years [...] filedocumented in this encounter Care Teams Director Sports Relationship Specialty Start Date End Date Raquel Martin PA-C PCP - General 08/28/17 [address] [place] [address] documented as of this encounter
--- OUTSIDE RECORDS SUMMARY | 2021-12-12 11:16 | XMS_ITS | Encounter Summary ---
:1940 Author Organization [facility] Address [address] [place] [address] Care Team Providers Name Role Phone Raquel Martin PA-C Primary Care Provider [phone] Reason for Visit Reason Onset Date Comments Appointment Related 10/01/2017 Appointment Related 10/01/2017 cerebral angiogram Encounter Details Date Type Department Care Team Description 10/01/2017 Telephone [facility] Dennis Henao Ap pointment Related; Neurosurgery - Main MD Appointment Related [address] (cerebral angiogram ) [address] [place] [address] [place], [address] [place] [address] (Wo rk) Social History Tobacco [...] Telephone Encounter - Kristine Arguello - 10/01/2017 1420 EDT Called and spoke with Rehan in regards to scheduling their cerebral angiogram requested by Dr. Henao. Ms. Gann will be coming in on Tuesday 10/10 @ 700AM, checking in at 645AM with a tow motor driver. They understand that they will need a tow motor driver, and that they should plan on [...] on filedocumented in this encounter Care Teams Administrator Health Care Facility Relationship Specialty Start Date End Date Raquel Martin PA-C PCP - General 08/28/17 [address] [place] [address] documented as of this encounter
--- OUTSIDE RECORDS SUMMARY | 2021-12-12 11:16 | XMS_ITS | Encounter Summary ---
:1940 Author Organization [facility] Address [address] [place] [address] Care Team Providers Name Role Phone Raquel Martin PA-C Primary Care Provider [phone] Reason for Visit Reason Comments Post-OP Follow Up aneurysm, CT today Encounter Details Date Type Department Care Team Description 01/01/2018 Post-op Visit [facility] Naef, Carmen Cerebra l aneurysm, nonruptured (Primary Dx); Neurosurgery - Paddy Eagle PA-C SDH (sub[facility]ural [facility]oma) [facility] [place] [address] [place] [address] [facility] [address] [place] [address] (Wo rk) Social History Tobacco [...] Diagnosis Date Noted ??? SDH (subdural hematoma) ([facility]) 12/18/2017 Priority: Medium ??? Cerebral aneurysm, nonruptured [...] documented as of this encounter Care Teams Youth Support Worker Relationship Specialty Start Date End Date Raquel Martin PA-C PCP - General 08/28/17 [address] [place] [address] documented as of this encounter
--- OUTSIDE RECORDS SUMMARY | 2021-12-12 11:16 | XMS_ITS | Encounter Summary ---
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 This finding is likely related to vitamin B12 deficiency. . ADDITIONAL INFORMATION ------ This test was developed and its performance characteri stics determined by [facility] in a manner consistent with CLIA requirements. This test has not been cleared or approv ed by the U.S. Food and Drug Administration. Performed or Referred by: [facility] Labs [facility], [address] [place] [address] Specimen Blood specimen (specimen) - Blood Performing Organization Address [facility] e Number [facility] [address] [place] [address] SERVICES VITAMIN B12 (12/18/2018 12:03 EDT) Pathologist Sig nature Vitamin B-12 229 211 - 911 pg/ml [facility] SERVICES Specimen Blood specimen (specimen) - Blood Performing Organization Address [facility] e Number [facility] [address] [place] [address] SERVICES VITAMIN E, SERUM (12/18/2018 12:03 EDT) Alpha- Tocopherol 13.5 5.5 - 17.0 [facility] (Vitamin E) Comment: mg/L [facility] (Note) SERVICES . ADDITIONAL INFORMATION ------ This test was developed and its performance characteri stics determined by [facility] in a manner consistent with CLIA requirements. This test has not been cleared or approv ed by the U.S. Food and Drug Administration. Performed by: [facility] Labs: [address], [place] [address] Specimen Blood specimen (specimen) - Blood Performing Organization Address [facility] e [facility] LABORATORY [address] [place] [address] SERVICES VITAMIN A, S (12/18/2018 12:03 EDT) Vitamin A 59.7 32.5 - 78.0 [facility] Comment: mcg/dL LABORATORY (Note) SERVICES . ADDITIONAL INFORMATION ------ This test was developed and its performance characteri stics determined by [facility] in a manner consistent with CLIA requirements. This test has not been cleared or approv ed by the U.S. Food and Drug Administration. Performed by: [facility] Labs: [address], [place] [address] Specimen Blood specimen (specimen) - Blood Performing Organization Address City/[facility]/ZIP Code Phon e Number [facility] [address] [place] [address] SERVICES (ABNORMAL) COMPLETE BLOOD COUNT AND DIFFERENTIAL (12/18/2018 12:03 EDT) Pathologist Sig nature WBC 4.64 4.0 - 12.4 [facility] K/[facility] LABORATORY SERVICES RBC 4.67 3.86 - 5.04 [facility] M/[facility] LABORATORY SERVICES Hemoglobin 14.2 11.6 - 15.2 [facility] gm/dl LABORATORY SERVICES HCT 43.9 34.9 - 44.4 % [facility] SERVICES MCV 94 81 - 98 fl [facility] SERVICES MCH 30.4 26.7 - 33.3 pg [facility] SERVICES MCHC 32.3 32.1 - 35.9 [facility] gm/dl LABORATORY SERVICES RDW-CV 13.0 <14.7 % [facility] SERVICES RDW-SD 44.4 <50.4 fl [facility] SERVICES PLT 226 141 - 377 K/[facility] LABORATORY SERVICES MPV 9.3 (L) 9.5 - 12.7 fl [facility] SERVICES Neutrophils 61.9 % [facility] SERVICES Lymphocytes 26.7 % [facility] SERVICES Monocytes 9.3 % [facility] SERVICES Eosinophils 1.3 % [facility] SERVICES Basophils 0.6 % [facility] SERVICES Immature Grans 0.2 % [facility] SERVICES ABS Neutrophils 2.87 2.20 - 8.85 [facility] K/[facility] LABORATORY SERVICES ABS Lymphs 1.24 1.09 - 3.30 [facility] K/[facility] LABORATORY SERVICES ABS Monocytes 0.43 0.1 - 0.8 K/[facility] LABORATORY SERVICES ABS Eosinophils 0.06 0.03 - 0.61 [facility] K/[facility] LABORATORY SERVICES ABS Basophils 0.03 0.01 - 0.11 [facility] K/[facility] LABORATORY SERVICES ABS Immature Grans 0.01 0 - 0.06 /[facility] LABORATORY SERVICES Type of Diff: Automated [facility] SERVICES Specimen Blood specimen (specimen) - Blood Performing Organization Address City/[facility]/ZIP Code Phon e Number [facility] [address] [place] [address] SERVICES ANCA, IFA (12/18/2018 12:03 EDT) ANCA Interpretation Negative Negative [facility] Comment: LABORATORY DAVID Positive, suggest follow-up DAVID testing if c linically indicated. Cannot SERVICES rule out Atypical ANCA (A-ANCA). No titer performed, ANCA screen is negative. Results were obtained with the INOVA NOVA Lite ANCA ki t by indirect immunofluorescence. 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
--- OUTSIDE RECORDS SUMMARY | 2021-12-12 11:16 | XMS_ITS | Encounter Summary ---
:1940 Author Organization [facility] Address [address] [place] [address] Care Team Providers Name Role Phone Raquel Martin PA-C Primary Care Provider [phone] Reason for Visit Reason Onset Date Comments Post-OP Follow Up 12/19/2017 Encounter Details Date Type Department Care Team Description 12/19/2017 Telephone [facility] Debby Polo Pos t-OP Follow Up Neurosurgery - [facility] RN [address] [place] [address] Social History Tobacco Use Types [...] and what symptoms to be mindful of. Insurance Processing Clerk advised persistent or severe headache, visual disturbance and gait imbalance would prompt a call to 911 and evaluation at her local ED. The patient verbalized understanding. She will avoid aspirin until reevaluation in 2 weeks. documented in this encounter Plan of Treatment Not on filedocumented as of this encounter Visit Diagnoses Not on filedocumented in this encounter Care Teams Head Stock Transfer Clerk Relationship Specialty Start Date End Date Raquel Martin PA-C PCP - General 08/28/17 [address] [place] [address] documented as of this encounter
--- OUTSIDE RECORDS SUMMARY | 2021-12-12 11:16 | XMS_ITS | Encounter Summary ---
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
--- OUTSIDE RECORDS SUMMARY | 2021-12-12 11:16 | XMS_ITS | Encounter Summary ---
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
--- OUTSIDE RECORDS SUMMARY | 2021-12-12 11:16 | XMS_ITS | Encounter Summary ---
:1940 Author Organization [facility] Address [address] [place] [address] Care Team Providers Name Role Phone Raquel Martin PA-C Primary Care Provider [phone] Reason for Referral Radiology Services (Routine) - Closed Specialty Diagnoses / Procedures Referred By Contact Refer red To Contact Diagnoses Abnormal head CT Carmen Rodriguez PA-C Procedures CT HEAD VENOGRAM W CONTRAST [address] [place] [phone] Referral ID Status Reason Start Date Expiration Date Visits Requ ested Visits Authorized [id number] Closed 12/26/2017 1 1 Encounter Details Date Type Department Care Team Description 12/26/2017 Orders Only [facility] Carmen Rodriguez A bnormal head CT Neurosurgery - Paddy ORTIZ (Primary Dx) [place] [address] [place] [address] [place] [address] (Wo rk) Social History Tobacco [...] Anatomical Region Laterality Modality Other Specimen Narrative [facility] - 01/01/2018 14:[address] HEAD VENOGRAM W CONTRAST ??01/01/2018 12:58 PM CLINICAL HISTORY: R93.0-Abnormal finding s on diagnostic imaging of skull and head, not elsewhere classified -ICD-10; High density in the right superior frontal focus I67.1-Cereb ral aneurysm, [id number] I62.00-Nontraumatic s ubdural hemorrhage, unspecified (HCC-CMS)-ICD-10; SDH, [...] right superior frontal focus I67.1-Cereb ral aneurysm, [id number] 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
--- OUTSIDE RECORDS SUMMARY | 2021-12-12 11:16 | XMS_ITS | Encounter Summary ---
:1940 Author Organization [facility] Address [address] [place] [address] Care Team Providers Name Role Phone Raquel Martin PA-C Primary Care Provider [phone] Reason for Referral Radiology Services (Routine) - Receiving Office to Obtain Authorization Specialty Diagnoses / Procedures Referred By Contact Refer red To Contact Diagnoses Cerebral aneurysm, nonruptured Varsha Patrick, Procedures CT HEAD WO CONTRAST ANGEL [address] [place] [phone] Referral ID Status Reason Start Expiration Visits Visits Date Date Requested Authorized [id number] Receiving Office 11/16/2017 1 1 to Obtain Authorization ollow Up (Routine) - Authorization Not Required Specialty Diagnoses / Procedures Referred By Contact Refer red To Contact Neurosurgery Diagnoses Cerebral aneurysm, nonruptured Varsha Patrick, Yosef Shields PA-C PA-C [address] [place] [phone] Referral ID Status Reason Start Expiration Visits Visits Date Date Requested Authorized [id number] Authorization Specialty 1 1 Not Required Services 8 Required Question Answer Reason for Request: post op follow up Scheduling Comments (optional ? 4 weeks describe specific scheduling needs if applicable): Encounter Details Date Type Department Care Team Description 11/12/2017 - [facility] Dennis Henao Cerebra l aneurysm, 11/16/2017 Encounter Neurosurgery Unit MD Justyn nonruptured [address] [place] [address] Avenue [phone] [place], [facility], [facility] [address] [place] [address] Social History Tobacco Use Types [...] Allergy status to sulfonamides sta tus-Z88.2[ICD-10-CM] Z79.82 technician terminal and repeater (current) use of aspiri n-Z79.82[ICD-10-CM] documented in this encounter Discharge Summaries Varsha Patrick PA - 11/14/2017 1336 EDT Neurosurgery Discharge Summary Primary Care Provider: Rqauel Martin Attending Physician: Dennis Henao MD Admit [...] a leftperiocallosal aneurysm on 11/12/[address] Henoa. She tolerated the procedure well. Her post [...] 08/28/2017 Discharge Follow Up Appointments Scheduled with [facility] in the next 3 months Studies [...] 4 PM, Sunday through Sunday. Triage line [phone]. 17. After hours, there is always a doctor alarm installation technician for emergencies or go to your local [...] Renteria, OT - 11/16/2017 1126 EDT [facility] Rehabilitation Therapy Acute Therapies [place] ??? Occupational Therapy Discontinue/Discharge Note Date of [...] Son (Arron) + Sister (Katey) + Location ([facility]) + Situation (Brain aneurysm) + Month [...] admission to a subacute Rehab. ?? 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 PLAN: Discontinue occupational therapy at [facility] acute care. Recommended Discharge Destination: Sub-acute rehabilitation Recommended Discharge Services: Occupational therapy at rehabilitation facility Recommended Discharge Equipment: To be determined by next care provider Pager: [phone] Marisa Renteria OT, 11/17/2017, 11:44 Romeo Tinoco, PT - 11/16/2017 1126 EDT [facility] Rehabilitation Therapy Acute Therapies [facility] Physical Therapy Discontinue/Discharge Note Date of Service: [...] for steady gains and to meet her half-way goal of discharge to home with her [...] other consults recommended at this time Pager: [phone] ROMEO SUAREZ PT 11/16/2017 12:24 Flor Kruse RN - 11/16/2017 0855 EDT Pt has bed offer at her first choice, [facility]. Pt will transfer via ambulance at 11:00 [...] Alert Verbalizes appropriately, fluently Oriented to self, [facility], October 2017 Follows commands x4 Extraocular [...] Yeh MD Neurosurgery resident 11/16/2017 7:51 Page [phone] with questions Flor Kruse RN - 11/15/2017 1218 EDT Per discussion with PT pt will require SARIKA stay after hospital prior to home with her sister. Met with pt and her friend for choice and consent for SARIKA placement. Pt lives in [facility] and would like to stay [facility]. Explained that if one of the two facilities in [facility] does not offer her a bed we would need to expand the search and she agrees with this, but would like [facility] attempted first. Pt's information sent to both [facility] facilities. Myranda Starks, OT - 11/15/2017 1152 EDT [facility] Rehabilitation Therapy Acute Therapies [place] ??? Occupational Therapy Encounter Note Date of [...] Son (Arron) + Sister (Katey) + Location ([facility]) + Situation (Brain aneurysm) + Month [...] be determined by next care provider Pager: [phone] Myranda Braswell OT, 11/15/2017, 11:53 Flor Kruse RN - 11/15/2017 5839 EDT Initial Case Management/Social Work Assessment and [...] For Finances: No TRANSPORTATION: Transportation: Family CULTURAL, BAPTIST and/or LANGUAGE factors affecting health care/discharge planning: Spiritual/Cultural Requests: (Hoahaoism) Any factors affecting health care/discharge planning?: No [...] Health Services: None DME Provider: None Pharmacy: [id number] - [place], [place] - [address] [place] [phone] Home Health: None Other: [facility] [...] Suarez, PT - 11/15/2017 0723 EDT [facility] Rehabilitation Therapy [facility] Physical Therapy Encounter Note Date of Service: [...] initiated Other recommendations: Social Work consult Pager: [phone] ROMEO SUAREZ, PT 11/15/2017 7:24 Johnny Yeh [...] Alert Verbalizes appropriately, fluently Oriented to self, [facility], October 2017 Follows commands x4 Extraocular [...] Yeh MD Neurosurgery resident 11/15/2017 6:54 Page [phone] with questions Associated attestation - Dennis Henao [...] Lucia, OT - 11/14/2017 0948 EDT [facility] Rehabilitation Therapy Acute Therapies [facility] Occupational Therapy Initial Evaluation Note Date of [...] Cerebral aneurysm, nonruptured-I67.1[ICD-10-CM] The patient lives at [address] [place] [address] History of Present Illness/Injury: Underwent Bifrontal craniotomy [...] Function: Per chart review, 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 Medical/Surgical History: Current: Patient Active Problem List Diagnosis ??? Cerebral aneurysm, nonruptured Past: Past Medical History: Diagnosis Date ??? Bursitis On the right ??? Chronic back pain ??? Hypertension ??? PMR (polymyalgia rheumatica) ([facility] Past Surgical History: Procedure Laterality Date ??? [...] and to assist with discharge planning. GOALS: Senior Care Goals: 3-4 weels ?? Pt will demonstrate [...] (C5, 6) 5/5 Tricep (C6, 7) 5/5 Excelsior Machine Operator (C8) 5/5 UE Strength - RIGHT Deltoid (C5) 5/5 Bicep (C5, 6) 5/5 Tricep (C6, 7) 5/5 Excelsior Machine Operator (C8) 5/5 No drift Sensation intact in [...] Powell MD Neurosurgery resident 11/14/2017 7:38 Page [phone] with questions Associated attestation - Dennis Henao [...] OT - 11/13/2017 1042 EDT Rehabilitation Therapies [facility] Occupational Therapy Contact Note Date of Service: 11/13/2017 Occupational Therapy priority for discharge referral received. Chart reviewed. Communicated with PT who stated pt is not clinically ready and Occupational Therapy evaluation wouldbest be completed on 11/14/17. Occupational Therapy to follow up with pt tomorrow, 11/14/17 to determine d/c recommendations. Mariann Kay OT, 11/13/2017, 10:43 Romeo Suarez, PT - 11/13/2017 0942 EDT Rehabilitation [facility] Physical TherapyContact Note Date of Service: 11/13/2017 Referral received as priority for discharge. Patient with poor tolerance to activity today and does not demonstrate the functional readiness for discharge at this time. Full note to follow. ROMEO SUAREZ PT 11/13/2017 9:44 Romeo Suarez, PT - 11/13/2017 8973 EDT [facility] Rehabilitation Therapy Acute Therapies [facility] Physical Therapy Initial Evaluation Note Date of [...] Cerebral aneurysm, nonruptured-I67.1[ICD-10-CM] The patient lives at [address] [place] [address] Home environment Lives:alone Caregiver Support: Part-time assist, [...] pain ??? Hypertension ??? PMR (polymyalgia rheumatica) ([facility]) Past Surgical History: Procedure Laterality Date ??? [...] abduction, elbow flexion, elbow extension, and hand vending mechanic ) and LE(hip flexion, hip abduction, knee [...] provided by physical therapist and/or physical therapist billing and accounting staff assistant when medically appropriate. 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 Pt [...] Powell MD Neurosurgery resident 11/12/2017 13:23 Page [phone] with questions Shannan Ivory, RN - 10/31/2017 [...] 11/12/2017 7:05 Please page Neurosurgery Service Pager [phone] for questions Linh Santamaria MD 11/12/2017 7:05 [...] PM / Dennis Henao MD cn Confirmation: [id number] Dictation ID: [id number] cc: Dhaval Chaudhry MD documented in this encounter Miscellaneous Notes Plan of Care - Henny Schofield RN - 11/16/2017 1126 EDT Problem: Daily Care Plan Goals Goal: Care Plan Documentation Outcome: Completed Date Met: 11/16/17 11/16/17 0800 Care Plan Focus Area of Focus Discharge Plan Goal This Shift Pt will discharge with needs met [facility] Action: Report called to Stephania LUGO. [...] Care - Radha Delvalle RN - 11/12/2017 3289 EDT Problem: Daily Care Plan Goals Goal: [...] left pericallosal aneurysm SURGEON = Dr. Henao SKEIN WINDER = Drs. Matthew and Rosalio ANESTHESIA = GETA COMPLICATIONS = None FINDINGS = Successful clipping EBL = 100 cc IVF = 1.4 liters UOP = 1200cc SPECIMENS/CULTURES = None DRAINS = None SKIN = Rapide (absorbable) DISPO =SICU Sommer?? Akt??MD wayne Neurosurgery Resident 11/12/2017 12:31 Please page Neurosurgery Service Pager [phone] for questions documented in this encounter Plan [...] Anatomical Region Laterality Modality Other Specimen Narrative [facility] - 12/18/2017 11:55 [...] Organization Address City/State/ZIP Code Phon e Number [facility] (ABNORMAL) COMPLETE BLOOD COUNT AND DIFFERENTIAL (11/15/2017 6:03 EDT) Pathologist Sig nature WBC 6.65 4.0 - 12.4 [facility] LABORATORY SERVICES RBC 3.65 (L) 3.86 - 5.04 [facility] M/[facility] LABORATORY SERVICES Hemoglobin 11.2 (L) 11.6 - 15.2 [facility] gm/dl LABORATORY SERVICES HCT 34.2 (L) 34.9 - 44.4 % [facility] LABORATORY SERVICES MCV 94 81 - 98 fl [facility] SERVICES MCH 30.7 26.7 - 33.3 pg [facility] LABORATORY SERVICES MCHC 32.7 32.1 - 35.9 [facility] gm/dl LABORATORY SERVICES RDW-CV 13.0 <14.7 % [facility] LABORATORY SERVICES RDW-SD 44.8 <50.4 fl [facility] LABORAT[facility] SERVICES PLT 181 141 - 377 K/[facility] LABORATORY SERVICES MPV 9.8 9.5 - 12.7 fl [facility] LABORAT[facility] SERVICES Neutrophils 77.5 % [facility] SERVICES Lymphocytes 11.4 % [facility] SERVICES Monocytes 9.2 % [facility] SERVICES Eosinophils 1.2 % [facility] SERVICES Basophils 0.2 % [facility] SERVICES Immature Grans 0.5 % [facility] LABORATORY SERVICES ABS Neutrophils 5.16 2.20 - 8.85 [facility] LABORATORY SERVICES ABS Lymphs 0.76 (L) 1.09 - 3.30 [facility] LABORATORY SERVICES ABS Monocytes 0.61 0.1 - 0.8 /[facility] LABORATORY SERVICES ABS Eosinophils 0.08 0.03 - 0.61 [facility] LABORATORY SERVICES ABS Basophils 0.01 0.01 - 0.11 [facility] LABORATORY SERVICES ABS Immature Grans 0.03 0 - 0.06 [facility] LABORATORY SERVICES Type of Diff: Automated [facility] Specimen Blood specimen (specimen) - Blood Performing Organization Address City/State/ZIP Code Phon e Number [facility] [address] [place] [address] SERVICES CREATININE (11/15/2017 6:03 EDT) Creatinine 0.56 0.52 - 1.04 [facility] mg/dl LABORATORY SERVICES GFR, Calculated 92 >60 [facility] Comment: ml/min/1.73m2 LABORATORY eGFR calculated using CKD-EPI equation for SERVICES non Americans. Multiply eGFR by 1.16 for Americans. Specimen Blood specimen (specimen) - Blood Performing Organization Address City/State/ZIP Code Phon e Number [facility] [address] [place] [address] SERVICES BUN (11/15/2017 6:03 EDT) Pathologist Sig nature BUN 11 10 - 26 mg/dl [facility] LABORATO RY SERVICES Specimen Blood specimen (specimen) - Blood Performing Organization Address City/State/ZIP Code Phon e Number [facility] [address] [place] [address] SERVICES ELECTROLYTES (11/15/2017 6:03 EDT) Pathologist Sig nature Sodium 138 136 - 145 mEq/L [facility] LABORA TORY SERVICES Potassium 4.1 3.5 - 5.0 mEq/L [facility] LABOR[facility] T[facility] SERVICES Chloride 105 96 - 110 mEq/L [facility] LABORAT ORY SERVICES CO2 25 22 - 32 mEq/L [facility] LABORATO RY SERVICES Specimen Blood specimen (specimen) - Blood Performing Organization Address City/[facility]/ZIP Code Phon e Number [facility] [address] [place] [address] SERVICES (ABNORMAL) COMPLETE BLOOD COUNT AND DIFFERENTIAL (11/14/2017 5:39 EDT) Pathologist Sig nature WBC 9.63 4.0 - 12.4 [facility] K/m LABORATORY SERVICES RBC 3.58 (L) 3.86 - 5.04 [facility] M/[facility] LABORATORY SERVICES Hemoglobin 10.9 (L) 11.6 - 15.2 [facility] gm/dl LABORATORY SERVICES HCT 33.7 (L) 34.9 - 44.4 % [facility] LABORATORY SERVICES MCV 94 81 - 98 fl [facility] LABORAT[facility] SERVICES MCH 30.4 26.7 - 33.3 pg [facility] LABORATORY SERVICES MCHC 32.3 32.1 - 35.9 [facility] gm/dl LABORATORY SERVICES RDW-CV 13.2 <14.7 % [facility] LABORATORY SERVICES RDW-SD 45.9 <50.4 fl [facility] LABORATORY SERVICES PLT 165 141 - 377 K/[facility] LABORATORY SERVICES MPV 10.1 9.5 - 12.7 fl [facility] LABORATORY SERVICES Neutrophils 78.8 % [facility] LABORATORY SERVICES Lymphocytes 9.7 % [facility] LABORATORY SERVICES Monocytes 10.3 % [facility] LABORATORY SERVICES Eosinophils 0.5 % [facility] LABORATORY SERVICES Basophils 0.1 % [facility] LABORATORY SERVICES Immature Grans 0.6 % [facility] LABORATORY SERVICES ABS Neutrophils 7.59 2.20 - 8.85 [facility] K/[facility] LABORATORY SERVICES ABS Lymphs 0.93 (L) 1.09 - 3.30 [facility] K/[facility] LABORATORY SERVICES ABS Monocytes 0.99 (H) 0.1 - 0.8 /[facility] LABORATORY SERVICES ABS Eosinophils 0.05 0.03 - 0.61 [facility] K/[facility] LABORATORY SERVICES ABS Basophils 0.01 0.01 - 0.11 [facility] K/[facility] LABORATORY SERVICES ABS Immature Grans 0.06 0 - 0.06 /[facility] LABORATORY SERVICES Type of Diff: Automated [facility] LABORAT[facility] SERVICES Specimen Blood specimen (specimen) - Blood Performing Organization Address City/State/ZIP Code Phon e Number [facility] [address] [place] [address] SERVICES CREATININE (11/14/2017 5:39 EDT) Creatinine 0.62 0.52 - 1.04 [facility] mg/dl LABORATORY SERVICES GFR, Calculated 88 >60 [facility] Comment: ml/min/1.73m2 LABORATORY eGFR calculated using CKD-EPI equation for SERVICES non Americans. Multiply eGFR by 1.16 for Americans. Specimen Blood specimen (specimen) - Blood Performing Organization Address City/State/ZIP Code Phon e Number [facility] [address] [place] [address] SERVICES BUN (11/14/2017 5:39 EDT) Pathologist Sig nature BUN 16 10 - 26 mg/dl [facility] LABORATO RY SERVICES Specimen Blood specimen (specimen) - Blood Performing Organization Address City/State/ZIP Code Phon e Number [facility] [address] [place] [phone] SERVICES ELECTROLYTES (11/14/2017 5:39 EDT) Pathologist Sig nature Sodium 136 136 - 145 mEq/L [facility] LABORA T[facility] SERVICES Potassium 4.6 3.5 - 5.0 mEq/L [facility] LABORA T[facility] SERVICES Chloride 107 96 - 110 mEq/L [facility] LABORAT ORY SERVICES CO2 23 22 - 32 mEq/L [facility] LABORATO RY SERVICES Specimen Blood specimen (specimen) - Blood Performing Organization Address City/State/ZIP Code Phon e Number [facility] [address] [place] [address] HEAD WO CONTRAST (11/13/2017 17:45 EDT) Anatomical Region Laterality Modality Other Specimen Narrative [facility] - 11/14/2017 9:10 [...] Organization Address City/State/ZIP Code Phon e Number [facility] CT HEAD WO CONTRAST (11/13/2017 4:19 EDT) Anatomical Region Laterality Modality Other Specimen Narrative [facility] - 11/13/2017 9:53 [...] Organization Address City/State/ZIP Code Phon e Number [facility] (ABNORMAL) COMPLETE BLOOD COUNT AND DIFFERENTIAL (11/13/2017 3:16 EDT) Pathologist Sig nature WBC 9.85 4.0 - 12.4 [facility] K/[facility] LABORATORY SERVICES RBC 3.75 (L) 3.86 - 5.04 [facility] M/[facility] LABORATORY SERVICES Hemoglobin 11.4 (L) 11.6 - 15.2 [facility] gm/dl LABORATORY SERVICES HCT 34.3 (L) 34.9 - 44.4 % [facility] LABORATORY SERVICES MCV 92 81 - 98 fl [facility] LABORAT[facility] SERVICES MCH 30.4 26.7 - 33.3 pg [facility] LABORAT[facility] SERVICES MCHC 33.2 32.1 - 35.9 [facility] gm/dl LABORATORY SERVICES RDW-CV 13.1 <14.7 % [facility] LABORATORY SERVICES RDW-SD 43.1 <50.4 fl [facility] LABORAT[facility] SERVICES PLT 171 141 - 377 K/[facility] MPV 9.5 9.5 - 12.7 fl [facility] LABORATORY SERVICES Neutrophils 85.8 % [facility] LABORAT[facility] SERVICES Lymphocytes 4.1 % [facility] LABORAT[facility] SERVICES Monocytes 9.7 % [facility] LABORAT[facility] SERVICES Eosinophils 0.0 % [facility] LABORATORY SERVICES Basophils 0.1 % [facility] LABORATORY SERVICES Immature Grans 0.3 % [facility] LABORATORY SERVICES ABS Neutrophils 8.45 2.20 - 8.85 [facility] K/[facility] LABORATORY SERVICES ABS Lymphs 0.40 (L) 1.09 - 3.30 [facility] LABORATORY SERVICES ABS Monocytes 0.96 (H) 0.1 - 0.8 K/[facility] LABORATORY SERVICES ABS Eosinophils 0.00 (L) 0.03 - 0.61 [facility] K/[facility] LABORATORY SERVICES ABS Basophils 0.01 0.01 - 0.11 [facility] K/[facility] LABORATORY SERVICES ABS Immature Grans 0.03 0 - 0.06 K/[facility] LABORATORY SERVICES Type of Diff: Automated [facility] LABORATORY SERVICES Specimen Blood specimen (specimen) - Blood Performing Organization Address [facility]/ZIP [facility] Phon e Number [facility] [address] [place] [address] SERVICES CREATININE (11/13/2017 3:16 EDT) Creatinine 0.71 0.52 - 1.04 [facility] mg/dl LABORATORY SERVICES GFR, Calculated 84 >60 [facility] Comment: ml/min/1.73m2 LABORATORY eGFR calculated using CKD-EPI equation for SERVICES non Americans. Multiply eGFR by 1.16 for Americans. Specimen Blood specimen (specimen) - Blood Performing Organization Address City/State/ZIP Code Phon e Number [facility] [address] [place] [address] SERVICES BUN (11/13/2017 3:16 EDT) Pathologist Sig nature BUN 15 10 - 26 mg/dl [facility] LABORATO RY SERVICES Specimen Blood specimen (specimen) - Blood Performing Organization Address City/State/ZIP [facility] Phon e Number [facility] [address] [place] [address] SERVICES ELECTROLYTES (11/13/2017 3:16 EDT) Pathologist Sig nature Sodium 138 136 - 145 mEq/L [facility] LABORA T[facility] SERVICES Potassium 4.7 3.5 - 5.0 mEq/L [facility] LABORA T[facility] SERVICES Chloride 108 96 - 110 mEq/L [facility] LABORAT ORY SERVICES CO2 22 22 - 32 mEq/L [facility] LABORAT[facility] RY SERVICES Specimen Blood specimen (specimen) - Blood Performing Organization Address City/State/ZIP Code Phon e Number [facility] [address] [place] [address] SERVICES MRSA PCR (11/12/2017 14:10 EDT) Pathologist Sig nature Result Methicillin susceptible [facility] Staphylococcus aureus LABORATORY SERVICES (MSSA) DNA detected by PCR. Specimen Other (qualifier value) - Nasal Performing Organization Address City/[facility]/ZIP Code Phon e Number [facility] [address] [place] [address] SERVICES (ABNORMAL) BLOOD GAS, CG8 ISTAT (11/12/2017 9:00 EDT) pH, i-STAT 7.41 7.35 - 7.45 [facility] LABORAT[facility] SERVICES pCO2, i-STAT 44 35 - 45 mmHg [facility] LABORAT[facility] SERVICES pO2, i-STAT 192 (H) 80 - 105 mmHg [facility] LABORAT[facility] SERVICES TCO2, i-STAT 29 (H) 23 - 27 mEq/L [facility] LABORAT[facility] SERVICES O2 Saturation 100 (H) 95 - 98 % [facility] LABORATORY SERVICES Sodium, i-STAT 142 136 - 145 [facility] mEq/L LABORATORY SERVICES Potassium, i-STAT 3.7 3.5 - 5.0 [facility] mEq/L LABORATORY SERVICES Glucose, I-STAT 97 70 - 100 [facility] mg/dl LABORATORY SERVICES Hematocrit,iSTAT 33 (L) 34.9 - 44.4 % [facility] LABORATORY SERVICES Calcium, Ionized 1.21 1.12 - 1.32 [facility] mmol/L LABORATORY SERVICES Base Excess, 3 [facility] i-STAT LABORATORY SERVICES Sample Type ARTERIAL [facility] LABORATORY judge clerk ID [id number] [facility] Comment: LABORATORY Test performed by Anesthesia. SERVICES For non-arterial reference ranges, please see ISTAT procedure. Specimen Blood Performing Organization Address City/State/ZIP Code Phon e Number [facility] [address] [place] [address] SERVICES PREPARE RED BLOOD CELLS (11/12/2017 8:41 EDT) Product Code [id number] [facility] Donor Number [id number] [facility] Unit ABO O [facility] Unit Rh NEG [facility] Unit Status RE^Released From [facility] BLOOD BANK Product Expiration [id number] [facility] BLOOD BANK Unit Blood Type 9500 [facility] BLOOD BANK Coding System [id number] [facility] Specimen Performing Organization Address City/[facility]/ZIP Code Phon e Number [facility] [address] BLOOD BANK PREPARE RED BLOOD CELLS (11/12/2017 8:41 EDT) Product Code [id number] [facility] Donor Number [id number] [facility] Unit ABO O [facility] Unit Rh NEG [facility]OD [facility] Unit Status RE^Released From [facility] BLOOD BANK Product Expiration [id number] [facility] BLOOD BANK Unit Blood Type 9500 [facility] BLOOD BANK Coding System [id number] [facility]OD [facility] Specimen Performing Organization Address City/[facility]/ZIP Code Phon e Number [facility]OD [facility] [address] [place] [address] BLOOD BANK PREPARE RED BLOOD CELLS (11/12/2017 8:41 EDT) Product Code [id number] [facility] Donor Number [id number] [facility] BLOOD [facility] Unit ABO O [facility] Unit Rh NEG [facility]OD [facility] Unit Status RE^Released From [facility] BLOOD BANK Product Expiration [id number] [facility] BLOOD BANK Unit Blood Type 9500 [facility] BLOOD BANK Coding System [id number] [facility]OD [facility] Specimen Performing Organization Address City/State/ZIP Code Phon e Number [facility]LOOD [facility] [address] [facility] [place], [place] [id number] [place] [address] BLOOD BANK PREPARE RED BLOOD CELLS (11/12/2017 8:41 EDT) Product Code [id number] [facility] Donor Number [id number] [facility] BLOOD [facility] Unit ABO O [facility]OD [facility] Unit Rh NEG [facility]OD [facility] Unit Status RE^Released From [facility] BLOOD BANK Product Expiration [id number] [facility] BLOOD BANK Unit Blood Type 9500 [facility] BLOOD BANK Coding System [id number] [facility]LOOD [facility] Specimen Performing Organization Address City/[facility]/ZIP Code Phon e Number [facility]LOOD [facility] [address] [facility] BLOOD BANK ABO/RH (11/12/2017 7:54 EDT) Pathologist Sig nature ABO O [facility]LOOD [facility] K Rh Factor Negative [facility] K Specimen Performing Organization Address City/State/ZIP Code Phon e Number [facility]LOOD [facility] [address] [facility] BLOOD BANK TYPE AND SCREEN (11/12/2017 7:54 EDT) ABO O [facility] BLOOD [facility] Rh Factor Negative [facility] Antibody Screen Negative [facility] Comment: BLOOD BANK Patient is electronic crossmatch eligible. Units available upon request for transfusion. Specimen Expires: 11/15/2017 @ 23:59 [facility] BLOOD BANK Specimen Performing Organization Address City/[facility]/ZIP Code Phon e Number [facility]LOOD [facility] [address] [facility] BLOOD BANK documented in this encounter [...] 30 mg 1012 (Given - P rovider: Bneito Douglas RN) 0840 (Given - Provider: Benito [...] 0.9 % with KCl 20 mEq/L infusion ([facility]) 0515 (New Bag - Provider: Azra [...] 11/16/2017 documented in this encounter Care Teams Grain Scooper Relationship Specialty Start Date End Date Raquel Martin PA-C PCP - General 08/28/17 [address] [place] [address] documented as of this encounter
--- OUTSIDE RECORDS SUMMARY | 2021-12-12 11:16 | XMS_ITS | Encounter Summary ---
:[address] [facility] Address [address] [place] [address] Care Team Providers Name Role Phone Raquel Martin PA-C Primary Care Provider [phone] Reason for Visit Reason Onset Date Comments Appointment Related 10/09/2017 Encounter Details Date Type Department Care Team Description 10/09/2017 Telephone [facility] Dennis Henao Ap pointment Related Neurosurgery - [address] [address] [address], [place] [phone] (Wo rk) Social History Tobacco Use Types [...] on filedocumented in this encounter Care Teams Computer Networking Instructor Adjunct Relationship Specialty Start Date End Date Raquel Martin PA-C PCP - General 08/28/[address] [place] [phone] documented as of this encounter
--- OUTSIDE RECORDS SUMMARY | 2021-12-12 11:16 | XMS_ITS | Encounter Summary ---
:1940 Author Organization [facility] Address [address] [place] [address] Care Team Providers Name Role Phone Raquel Martin PA-C Primary Care Provider [phone] Reason for Visit Reason Onset Date Comments Other 11/09/2017 CONFIRM SURGERY Encounter Details Date Type Department Care Team Description 11/09/2017 Telephone [facility] Dennis Henao Ot her (CONFIRM Neurosurgery - Main MD SURGERY) [place] [address] [place] [address] [facility] Level [address] [place] [address] (Wo rk) Social History Tobacco [...] on filedocumented in this encounter Care Teams Rotary Shear Worker Helper Relationship Specialty Start Date End Date Raquel Martin PA-C PCP - General 08/28/17 [address] [place] [address] documented as of this encounter
--- OUTSIDE RECORDS SUMMARY | 2021-12-12 11:16 | XMS_ITS | Encounter Summary ---
:1940 Author Organization [facility] Address [address] [place] [address] Care Team Providers Name Role Phone Raquel Martin PA-C Primary Care Provider [phone] Encounter Details Date Type Department Care Team Description 11/07/2017 Pre-Procedure [facility] Najoby, Carmen Cerebra l aneurysm, Orders Encounter Neurosurgery - [facility] ANGEL Eagle nonruptured [place] [address] [place] [address] (Primary Dx) [address] [place], [place] [phone] [place], [place] [address] [place] [phone] Social History Tobacco Use Types Packs/Day Years [...] Primary documented in this encounter Care Teams Thermodynamic Physicist Relationship Specialty Start Date End Date Raquel Martin PA-C PCP - General 08/28/[address] [place] [phone] documented as of this encounter
--- OUTSIDE RECORDS SUMMARY | 2021-12-12 11:16 | XMS_ITS | Encounter Summary ---
:1940 Author Organization [facility] Address [address] [place] [address] Care Team Providers Name Role Phone Raquel Martin PA-C Primary Care Provider [phone] Reason for Visit Reason Onset Date Comments Appointment Related 12/18/2018 Encounter Details Date Type Department Care Team Description 12/18/2018 Telephone [facility] Sohail Chaudhry ent Related Neurophysiology - [facility] MD Pedro Montello [address] [place] [address] [place], [address] [place] [address] (Wo rk) Social History Tobacco [...] on filedocumented in this encounter Care Teams Telephone Order Clerk Room Service Relationship Specialty Start Date End Date Raquel Martin PA-C PCP - General 08/28/17 [address] [place] [phone] documented as of this encounter
--- OUTSIDE RECORDS SUMMARY | 2021-12-12 11:16 | XMS_ITS | Encounter Summary ---
:1940 Author Organization [facility] Address [address] [place] [address] Care Team Providers Name Role Phone Raquel Martin PA-C Primary Care Provider [phone] Reason for Visit Reason Onset Date Comments Post-OP Follow Up 11/19/2017 Encounter Details Date Type Department Care Team Description 11/19/2017 Telephone [facility] Debby Polo Pos t-OP Follow Up Neurosurgery - [facility] RN [address] [place] [address] Social History Tobacco Use Types [...] 11/19/2017 1012 EDT Spoke with Director at [facility] and advised staple removal at 14 days post procedure. documented in this encounter Plan of Treatment Not on filedocumented as of this encounter Visit Diagnoses Not on filedocumented in this encounter Care Teams Sugar Cane Farm Manager Relationship Specialty Start Date End Date Raqule Martin PA-C PCP - General 08/28/[address] [place] [address] documented as of this encounter
--- OUTSIDE RECORDS SUMMARY | 2021-12-12 11:16 | XMS_ITS | Encounter Summary ---
:1940 Author Organization [facility] Address [address] [place] [address] Care Team Providers Name Role Phone Raquel Martin PA-C Primary Care Provider [phone] Reason for Visit Reason Onset Date Comments Other 12/31/2018 Encounter Details Date Type Department Care Team Description 12/31/2018 Telephone [facility] Isidoro, Sohail Vasquez, Other Ophthalmology - [facility] 111 [facility] [address] [phone] [place], [address] [place] [address] (Wo rk) Social History Tobacco [...] on filedocumented in this encounter Care Teams Free Lance Artist Relationship Specialty Start Date End Date Raquel Martin PA-C PCP - General 08/28/17 [address] [place] [address] documented as of this encounter
--- OUTSIDE RECORDS SUMMARY | 2021-12-12 11:16 | XMS_ITS | Encounter Summary ---
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 Sohail Chaudhry MD Procedures OCT (OPHTHALMIC DIGITAL IMAGING, POSTERIOR SEGMENT) [address] [phone] Referral ID Status Reason Start Date Expiration Date Visits V isits Requested Authorized [id number] New Request 12/18/2018 1 1 (Routine) - New Request Specialty Diagnoses / Procedures Referred By Contact Refer red To Contact Diagnoses Visual field defect Aneurysm of anterior cerebral artery Macular degeneration of both eyes, unspecified type 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 Sohail Chaudhry MD Procedures VISUAL FIELD EXAM, EXTENDED [address] [phone] Referral ID Status Reason Start Date Expiration Date Visits V isits Requested Authorized [id number] New Request 12/18/2018 1 1 Reason for [...] degeneration Raquel Martin, Sohail Chaudhry PA-C MD [address] [place] [phone] [place] [address] [place], [address] [place] [address] Phone: Fax: Referral ID Status Reason Start Expiration Visits Visits Date Date Requested Authorized [id number] Authorization Not 1 1 Required Encounter Details Date Type Department Care Team Description 12/18/2018 Office Visit [facility] Sohail Chaudhry, Ophthalmology - [address] [address] [address], [place] [address] (Wo rk) Social History Tobacco [...] been dictated. I spent 30 minutes in [id number] conversation and discussion, with more than 50% of that time used for counseling and coordination of care. documented in this encounter Consult Notes Sohail Chaudhry MD - 12/18/2018 0000 EDT [facility] NEURO-OPHTHALMOLOGY CONSULTATION - 12/18/2018 Ms Gann [...] or concerns. Sohail Chaudhry MD Diplomate, the [place] [employer] remote sensing technician Department of Ophthalmology NEURO-OPHTHALMOLOGY cc: Raquel Martin PA-C, [address] [address] Alison Barreto OD, [address] [place] [address], [facility] 6, [place] [address] documented in this encounter Plan of Treatment [...] (12/18/2018 12:03 EDT) ANCA Interpretation Negative Negative [facility] Comment: LABORATORY DAVID Positive, suggest follow-up DAVID testing if c linically indicated. Cannot SERVICES rule out Atypical ANCA (A-ANCA). No titer performed, ANCA screen is negative. Results were obtained with the INOVA NOVA Lite ANCA ki t by indirect immunofluorescence. Specimen Blood specimen (specimen) - Blood Performing Organization Address City/State/ZIP Code Phon e Number [facility] LABORATORY [address] [place] [address] SERVICES (ABNORMAL) COMPLETE BLOOD COUNT AND DIFFERENTIAL (12/18/2018 12:03 EDT) Pathologist Sig nature WBC 4.64 4.0 - 12.4 [facility] K/[facility] LABORATORY SERVICES RBC 4.67 3.86 - 5.04 [facility] LABORATORY SERVICES Hemoglobin 14.2 11.6 - 15.2 [facility] gm/dl LABORATORY SERVICES HCT 43.9 34.9 - 44.4 % [facility] LABORATORY SERVICES MCV 94 81 - 98 fl [facility] LABORATORY SERVICES MCH 30.4 26.7 - 33.3 pg [facility] LABORATORY SERVICES MCHC 32.3 32.1 - 35.9 [facility] gm/dl LABORATORY SERVICES RDW-CV 13.0 <14.7 % [facility] LABORATORY SERVICES RDW-SD 44.4 <50.4 fl [facility] LABORATORY SERVICES PLT 226 141 - 377 K/[facility] LABORATORY SERVICES MPV 9.3 (L) 9.5 - 12.7 fl [facility] LABORATORY SERVICES Neutrophils 61.9 % [facility] LABORATORY SERVICES Lymphocytes 26.7 % [facility] LABORATORY SERVICES Monocytes 9.3 % [facility] LABORATORY SERVICES Eosinophils 1.3 % [facility] LABORATORY SERVICES Basophils 0.6 % [facility] LABORATORY SERVICES Immature Grans 0.2 % [facility] LABORATORY SERVICES ABS Neutrophils 2.87 2.20 - 8.85 [facility] K/[facility] LABORATORY SERVICES ABS Lymphs 1.24 1.09 - 3.30 [facility] LABORATORY SERVICES ABS Monocytes 0.43 0.1 - 0.8 /[facility] LABORATORY SERVICES ABS Eosinophils 0.06 0.03 - 0.61 [facility] LABORATORY SERVICES ABS Basophils 0.03 0.01 - 0.11 [facility] LABORATORY SERVICES ABS Immature Grans 0.01 0 - 0.06 [facility] LABORATORY SERVICES Type of Diff: Automated [facility] LABORATORY SERVICES Specimen Blood specimen (specimen) - Blood Performing Organization Address City/State/ZIP Code Phon e Number [facility] LABORATORY [address] [place] [address] SERVICES VITAMIN A, S (12/18/2018 12:03 EDT) Vitamin A 59.7 32.5 - 78.0 [facility] Comment: mcg/dL LABORATORY (Note) SERVICES . ADDITIONAL INFORMATION ------ This test was developed and its performance characteri stics determined by [facility] in a manner consistent with CLIA requirements. This test has not been cleared or approv ed by the U.S. Food and Drug Administration. Performed by: [facility] Labs: [facility] [address], [place] [address] Specimen Blood specimen (specimen) - Blood Performing Organization Address [facility] e Number [facility] LABORATORY [address] [place] [address] SERVICES VITAMIN E, SERUM (12/18/2018 12:03 EDT) Alpha- Tocopherol 13.5 5.5 - 17.0 [facility] (Vitamin E) Comment: mg/L [facility] (Note) SERVICES . ADDITIONAL INFORMATION ------ This test was developed and its performance characteri stics determined by [facility] in a manner consistent with CLIA requirements. This test has not been cleared or approv ed by the U.S. Food and Drug Administration. Performed by: [facility] Labs: [facility] [address], [place] [address] Specimen Blood specimen (specimen) - Blood Performing Organization Address [facility] e Number [facility] LABORATORY [address] [place] [phone] SERVICES VITAMIN B12 (12/18/2018 12:03 EDT) Pathologist [facility] nature Vitamin B-12 229 211 - 911 pg/ml [facility] LABORATORY SERVICES Specimen Blood specimen (specimen) - Blood Performing Organization Address [facility] e [facility] LABORATORY [address] [place] [address] SERVICES (ABNORMAL) METHYLMALONIC ACID (12/18/2018 12:03 EDT) Methylmalonic Acid 0.69 (H) <=0.40 [facility] Comment: nmol/mL CENTER (Note) LABORATORY In this sample, the concentration of methylmalonic aci d SERVICES (MMA) was elevated. This finding is likely related to vitamin B12 deficiency. . ADDITIONAL INFORMATION ------ This test was developed and its performance characteri stics determined by [facility] in a manner consistent with CLIA requirements. This test has not been cleared or approv ed by the U.S. Food and Drug Administration. Performed or Referred by: [facility] Labs [facility], [address] [place] [address] Specimen Blood specimen (specimen) - Blood Performing Organization Address City/State/ZIP Code Phon e Number [facility] LABORATORY [address] [place] [address] SERVICES documented in this encounter Visit Diagnoses [...] Periphery Normal Normal Wearing Rx Sphere Cylinder [place] Add Right eye -1.25 +1.25 180 +2.50 Left eye +0.25 +1.00 178 +2.50 Type: PAL Manifest Refraction (Auto) Sphere Cylinder [place] Dist [place] Right eye -1.50 +1.50 005 20/25 Left eye +0.75 +1.25 180 NI AR 1 with letter AR 2with numbers Care Teams Campaign Associate Relationship Specialty Start Date End Date Raquel Martin PA-C PCP - General 08/28/17 [address] [place] [phone] documented as of this encounter
--- OUTSIDE RECORDS SUMMARY | 2021-12-12 11:17 | XMS_ITS | Encounter Summary ---
:[address] [facility] Address [address] [place] [address] Care Team Providers Name Role Phone Unavailable Primary Care Provider Unavailable Encounter Details Date Type Department Care Team Description 02/08/2001 Results Only [facility] - Nimesh Castelan MD conversion [address] [place] [address] Social History Tobacco Use Types Packs/Day Years [...] 0:00 EST) Pathology Report: CYTOPATHOLOGY REPORT [facility] Reports generated via electronic interface contain audelia ginal data; however they are lacking the format of the original re port. Caution should be taken when reading/interpreting unfo rmatted reports. Name: ? REHAN FRITZ ? Accession #: ? [id number] : ? 1940 (Age: 60) ??F ?Collect [...] City/State/ZIP Code Phon e Number [facility] LABORATORY [address] [place] [address] SERVICES [facility] [address] [place] [address] documented in this encounter Visit Diagnoses Not on filedocumented in this encounter
--- OUTSIDE RECORDS SUMMARY | 2021-12-12 11:17 | XMS_ITS | Clinical Summary ---
:1940 Author Organization [facility] [place] [address] Care Team Providers Name Role Phone Unknown [...] Addre ss Type Group MEDICARE MEDICARE PART [id number] 2009-Mickie [phone] [id number] [facility] [place] [address] [place] [id number] 2019-Meaghan [phone] [address] [place] [address] Guarantor Name Account Type Relation to Date of Phone Bill ing Patient Address Rehan Gann Agnieszka Personal/Family Self 1940 [address] (Home) [address] [place] [address] Care Teams Remelt Operator Relationship Specialty Start Date End Date Unknown PCP - General 11/12/19 None
--- OUTSIDE RECORDS SUMMARY | 2021-12-12 11:17 | XMS_ITS | Encounter Summary ---
:[address] [facility] Address [address] [place] [address] Care Team Providers Name Role Phone Unavailable Primary Care Provider Unavailable Encounter Details Date Type Department Care Team Description 03/11/2004 Results Only [facility] - Anthony Rubin MD Maple conversion [address] [place] [address] [place] [address] Social History Tobacco Use Types Packs/Day Years [...] REHAN FRITZ ? Accession #: ? [id number] : ? 1940 (Age: 63) ??F ?Collect [...] c ells, undetermined significance. EDUCATIONAL NOTES/RECOMMENDATIONS ? [facility] recommends joni wing the 2001 Consensus Guidelines for the Management of Women with Cervical Cytological Abnormalities (JENNY Cross,2002;287:2120-9). Management algorithms have b een distributed by [facility] and are available online at www.ASCCP.org. ? Document reviewed and electronically signed by: ? ANTONETTE BRYANT MD ? Report Date: ??03/22/2004 11:44 End of Report Specimen Performing Organization Address City/State/ZIP Code Phon e Number [facility]OR[facility] [address] [place] [address] SERVICES [facility] [address] [place] [address] documented in this encounter Visit Diagnoses Not on filedocumented in this encounter
--- OUTSIDE RECORDS SUMMARY | 2021-12-12 11:17 | XMS_ITS | Encounter Summary ---
:1940 Author Organization [facility] Address [address] [place] [address] Care Team Providers Name Role Phone Unavailable Primary Care Provider Unavailable Encounter Details Date Type Department Care Team Description 03/10/2003 Results Only [facility] - Nimesh Castelan MD conversion [address] [place] [address] Social History Tobacco Use Types Packs/Day Years [...] REHAN FRITZ ? Accession #: ? [id number] : ? 1940 (Age: 62) ??F ?Collect [...] Phon e Number [facility] LABORATORY [address] [place] [address] SERVICES [facility] [address] [place] [address] documented in this encounter Visit Diagnoses Not on filedocumented in this encounter
--- OUTSIDE RECORDS SUMMARY | 2021-12-12 11:17 | XMS_ITS | Encounter Summary ---
:1940 Author Organization [facility] Address [address] [place] [address] Care Team Providers Name Role Phone Unavailable Primary Care Provider Unavailable Encounter Details Date Type Department Care Team Description 05/03/2010 Results Only [facility] Samara Rubin MD Laboratory Services - [address] [place] [address] [place] [address] Social History Tobacco Use Types Packs/Day Years Used Date Never Assessed Sex Assigned at Date Recorded Not on file documented as of this encounter Plan of Treatment Not on filedocumented as of this encounter Procedures Procedure Name Priority Date/Time Associated Diagnosis Comme [facility] CYTOPATHOLOGY Routine 05/03/2010 0:00 EST Results for this procedure are i n the results section . documented in this encounter Results CYTOPATHOLOGY (05/03/2010 0:00 EST) Pathology Report: CYTOPATHOLOGY REPORT ? [facility] ? LAB Reports generated via [employer] interface contain original data; ? however they are lacking the format of the original report. ? Caution should be taken when reading/interpreting unformatted reports. ? Name: ? CATRINA REHAN ? Accession #: ? [id number] ? : ? 1940 (Age: 70) ??F [...] Code Phon e Number [facility]ORATORY [address] [place] [address] SERVICES [facility] [address] [place] [address] documented in this encounter Visit Diagnoses Not on filedocumented in this encounter
--- OUTSIDE RECORDS SUMMARY | 2021-12-12 11:17 | XMS_ITS | Encounter Summary ---
:1940 Author Organization [facility] Address [address] [place] [address] Care Team Providers Name Role Phone Unknown, Provider Primary Care Provider Encounter Details Date Type Department Care Team Description 12/09/2012 Results Only [facility] Samara Rubin MD Laboratory Services - [address] [place] [address] [place] [address] Social History Tobacco Use Types Packs/Day [...] ? REHAN FRITZ ? Accession #: ? [id number] ? : ? 1940 (Age: 72) ??F [...] types 16,18,31,3 3,35, 39,45,51,52,56,58,59,66, and 68 by remote coders media ivis amplification. Comments Document reviewed and electronically signed by: ? System Interface ? Report date: 12/17/2012 By the signature above, the attending physician certif ies that he/she has personally conducted a gross and/or microscopic examin ation of the described specimens and rendered or confirmed the above diagnosi s. End of Report Specimen Performing Organization Address City/State/ZIP Code Phon e Number [facility] [address] [place] [address] SERVICES [facility] [address] [place] [address] documented in this encounter Visit Diagnoses Not on filedocumented in this encounter Care Teams Umbrella Finisher Relationship Specialty Start Date End Date Unknown, Provider, PCP - General 06/30/11 08/27/17 documented as of this encounter
--- OUTSIDE RECORDS SUMMARY | 2021-12-12 11:17 | XMS_ITS | Encounter Summary ---
:1940 Author Organization [facility] Address [address] [place] [address] Care Team Providers Name Role Phone Unknown, Provider Primary Care Provider Encounter Details Date Type Department Care Team Description 01/28/2015 Results Only [facility]- Samara Milan MD [phone] [address] [place] [address] Social History Tobacco Use Types Packs/Day Years [...] (01/28/2015 0:00 EST) Pathology Report: CYTOPATHOLOGY REPORT [facility] Reports generated via electronic interface contain audelia ginal data; SERVICES however they are lacking the format of the original re port. Caution should be taken when reading/interpreting unfo rmatted reports. Name: ? REHAN FRITZ ? Accession #: ? [id number] ? : ? 1940 (Age: 74 ) [...] 8,31, 33,35,39,45,51,52,56,58,59,66, and 68 is detected by contact center associate mediated amplification. High and intermediate risk HPV [...] e Number [facility] [address] [place] [address] SERVICES documented in this encounter Visit Diagnoses Not on filedocumented in this encounter Care Teams Finisher Accordion Relationship Specialty Start Date End Date Unknown, Provider, PCP - General 06/30/11 08/27/17 documented as of this encounter
--- OUTSIDE RECORDS SUMMARY | 2021-12-12 11:17 | XMS_ITS | Encounter Summary ---
:1940 Author Organization [facility] [place] [address] Care Team Providers Name Role Phone Raquel Martin Primary Care Provider Reason for Visit Reason Comments Skin Lesion Encounter Details Date Type Department Care Team Description 02/26/2012 Office Visit Dermatology Niko Mars, Seborrheic keratosis [address] [facility] (Primary Dx) [address] [place], [place] DERMATOLOGY [id number] [place] [address] [phone] (Wo rk) Social History Tobacco Use Types Packs/Day Years Used Date Never Smoker Sex Assigned at Date Recorded Not on file documented as of this encounter Progress Notes Niko Mars MD - 02/26/2012 11:02 AM EST Problem: Back lesion. Rehan follows up after last being seen by me in December 2007. She is now followed by Raquel Norwood and Dr. Smith at the [facility] and desires to have her mole [...] keratosis documented in this encounter Care Teams Chief Catalyst Operator Relationship Specialty Start Date End Date Raquel Martin PA PCP - General 02/26/12 11/11/19 [address] [place] [address] documented as of this encounter
--- OUTSIDE RECORDS SUMMARY | 2021-12-12 11:17 | XMS_ITS | Encounter Summary ---
:1940 Author Organization [facility] Address [address] [place] [address] Care Team Providers Name Role Phone Unavailable Primary Care Provider Unavailable Encounter Details Date Type Department Care Team Description 04/14/2008 Before [facility] - Anthony Rubin MD Converted Visit Maple conversion [address] (Maple) [address] [facility] [place] [phone] Social History Tobacco Use Types Packs/Day Years [...] EN ? LAB Reports generated via electr Travelatus interface contain original data; ? however they are lacking the format of the original report. ? Caution should be taken when reading/interpreting unformatted reports. ? Name: ? REHAN FRITZ ? Accession #: ? [id number] ? : ? 1940 (Age: 67) ??F [...] Organization Address City/State/ZIP Code Phon e Number [facility] [address] [place] [address] SERVICES [facility] [address] [place] [address] documented in this encounter Visit Diagnoses Not on filedocumented in this encounter
--- OUTSIDE RECORDS SUMMARY | 2021-12-12 11:17 | XMS_ITS | Encounter Summary ---
:1940 Author Organization [facility] Address [address] [place] [address] Care Team Providers Name Role Phone Unavailable Primary Care Provider Unavailable Encounter Details Date Type Department Care Team Description 04/02/2003 Results Only [facility] - Anthony Rubin MD Maple conversion [address] [place] [address] [place] [address] Social History Tobacco Use Types Packs/Day Years [...] Comment: No endometrial tissue is identified. ??(Dr. Lantigua)/[facility] Document reviewed and electronically signed by: [...] e Number [facility] [address] [place] [address] SERVICES [facility] [address] [place] [address] documented in this encounter Visit Diagnoses Not on filedocumented in this encounter
--- OUTSIDE RECORDS SUMMARY | 2021-12-12 11:17 | XMS_ITS | Encounter Summary ---
:1940 Author Organization [facility] Address [address] [place] [address] Care Team Providers Name Role Phone Unavailable Primary Care Provider Unavailable Encounter Details Date Type Department Care Team Description 08/26/2002 Results Only [facility] - Nimesh Castelan MD conversion [address] [place] [address] Social History Tobacco Use Types Packs/Day Years [...] REHAN FRITZ ? Accession #: ? [id number] : ? 1940 (Age: 62) ??F ?Collect [...] c ells, undetermined significance. EDUCATIONAL NOTES/RECOMMENDATIONS ? [facility] recommends joni wing the 2001 Consensus Guidelines for the Management of Women with Cervical Cytological Abnormalities (JAM [employer],2002;287:2120-9). Management algorithms have b een distributed by [facility] and are available online at www.ASCCP.org. ? Document reviewed and electronically signed by: ? TERESA BETANCOURT MD ? Report Date: ??09/01/2002 13:59 End of Report Specimen Performing Organization Address City/State/ZIP Code Phon e Number [facility] [address] [place] [address] SERVICES [facility] [address] [place] [address] documented in this encounter Visit Diagnoses Not on filedocumented in this encounter
--- OUTSIDE RECORDS SUMMARY | 2021-12-12 11:17 | XMS_ITS | Encounter Summary ---
:1940 Author Organization [facility] Address [address] [place] [address] Care Team Providers Name Role Phone Unknown, Provider Primary Care Provider Encounter Details Date Type Department Care Team Description 02/09/2016 Results Only [facility]- Samara Milan MD [phone] [address] [address] Social History Tobacco Use Types Packs/Day Years [...] THINPREP (02/09/2016 13:20 EST) Specimen Source [employer] [facility] SERVICES HPV type 16, PCR Test not indicated, [facility] credit issued. LABORATORY SERVICES HPV type 18, PCR Test not indicated, [facility] R credit issued. LABORATORY SERVICES HPV other types, Test not indicated, [facility] R PCR credit issued. LABORATORY SERVICES Specimen Other Performing Organization Address City/State/ZIP Code Phon e Number [facility] [address] [place] [address] SERVICES PAP TEST- RESULT ONLY (02/09/2016 0:00 EST) Pathology Report: CYTOPATHOLOGY REPORT [facility] Reports generated via electronic interface contain audelia ginal data; SERVICES however they are lacking the format of the original re port. Caution should be taken when reading/interpreting unfo rmatted reports. Name: ? REHAN FRITZ ? Accession #: ? [id number] ? : ? 1940 (Age: 75 ) [...] 8,31, 33,35,39,45,51,52,56,58,59,66, and 68 is detected by multiple drum sander mediated amplification. High and intermediate risk HPV [...] Organization Address City/State/ZIP Code Phon e Number [facility] [address] [place] [address] SERVICES documented in this encounter Visit Diagnoses Not on filedocumented in this encounter Care Teams Paper Tube Cutter Relationship Specialty Start Date End Date Unknown, Provider, PCP - General 06/30/11 08/27/17 documented as of this encounter
--- OUTSIDE RECORDS SUMMARY | 2021-12-12 11:17 | XMS_ITS | Encounter Summary ---
:1940 Author Organization [facility] Address [address] [place] [address] Care Team Providers Name Role Phone Unknown, Provider Primary Care Provider Encounter Details Date Type Department Care Team Description 12/16/2013 Results Only [facility] Samara Rubin MD Laboratory Services - [address] [place] [address] [place] [address] Social History Tobacco Use Types Packs/Day [...] ? REHAN FRITZ ? Accession #: ? [id number] ? : ? 1940 (Age: 73) ??F [...] types 16,18,31,3 3,35, 39,45,51,52,56,58,59,66, and 68 by construction management instructor media ivis amplification. Comments Document reviewed and [...] e Number [facility] [address] [place] [address] SERVICES [facility] [address] [place] [address] documented in this encounter Visit Diagnoses Not on filedocumented in this encounter Care Teams Clinical Application Consultant Relationship Specialty Start Date End Date Unknown, Provider, PCP - General 06/30/11 08/27/17 documented as of this encounter
--- OUTSIDE RECORDS SUMMARY | 2021-12-12 11:17 | XMS_ITS | Encounter Summary ---
:1940 Author Organization [facility] Address [address] [place] [address] Care Team Providers Name Role Phone Unknown, Provider Primary Care Provider Encounter Details Date Type Department Care Team Description 07/11/2016 Results Only [facility]- Samara Milan MD [phone] [address] [facility] [place] [address] Social History Tobacco Use Types Packs/Day Years [...] (07/11/2016 0:00 EDT) Pathology Report: CYTOPATHOLOGY REPORT [facility] Reports generated via electronic interface contain audelia ginal data; SERVICES however they are lacking the format of the original re port. Caution should be taken when reading/interpreting unfo rmatted reports. Name: ? REHAN FRITZ ? Accession #: ? [id number] ? : ? 1940 (Age: 76 ) [...] types 16,18,31,3 3,35, 39,45,51,52,56,58,59,66, and 68 by flight attendant/inflight manager media ivis amplification. Comments Document reviewed and electronically signed by: ? System Interface ? Report date: 07/25/2016 By the signature above, the attending physician certif ies that he/she has personally conducted a gross and/or microscopic examin ation of the described specimens and rendered or confirmed the above diagnosi s. End of Report Specimen Performing Organization Address City/State/ZIP Code Phon e Number [facility] [address] [place] [address] SERVICES documented in this encounter Visit Diagnoses Not on filedocumented in this encounter Care Teams Rn Emergency Room Relationship Specialty Start Date End Date Unknown, Provider, PCP - General 06/30/11 08/27/17 documented as of this encounter
--- OUTSIDE RECORDS SUMMARY | 2021-12-12 11:17 | XMS_ITS | Encounter Summary ---
:1940 Author Organization [facility] Address [address] [place] [address] Care Team Providers Name Role Phone Raquel Martin PA-C Primary Care Provider Reason for Referral Radiology Services (3 - 10 Business Days) - Specialty Report Received Specialty Diagnoses / Procedures Referred By Contact Refer red To Contact Diagnoses Visual field defect Sohail Chaudhry MD Procedures CT ORBITS W/WO CONTRAST [address] [address] Referral ID Status Reason Start Date Expiration Date Visits V isits Requested Authorized [id number] Specialty 08/28/2017 1 1 Report Received adiology Services (3 - 10 Business Days) - Specialty Report Received Specialty Diagnoses / Procedures Referred By Contact Refer red To Contact Diagnoses Visual field defect Sohail Chaudhry MD Procedures CT HEAD W/WO CONTRAST [address] [address] Referral ID Status Reason Start Date Expiration Date Visits V isits Requested Authorized [id number] Specialty 08/28/2017 1 1 Report Received (Routine) - New Request Specialty Diagnoses / Procedures Referred By Contact Refer red To Contact Diagnoses Visual field defect Sohail Chaudhry MD Procedures VISUAL FIELD EXAM, INTERMEDIATE [address] [address] Referral ID Status Reason Start Date Expiration Date Visits V isits Requested Authorized [id number] New Request 08/28/2017 1 1 (Routine) - New Request Specialty Diagnoses / Procedures Referred By Contact Refer red To Contact Diagnoses Visual field defect Sohail Chaudhry MD Procedures OCT (OPHTHALMIC DIGITAL IMAGING, POSTERIOR SEGMENT) [address] [place], [place] [phone] Referral ID Status Reason Start Date Expiration Date Visits V isits Requested Authorized [id number] New Request 08/28/2017 1 1 Reason for [...] Contact Ophthalmology Alison Barreto, MARCO Wp[address] Ophthalmology [address] [place] [address] ,[place] [address] Fax: Referral ID Status Reason Start Expiration Visits Visits Date Date Requested Authorized [id number] Authorization Not 1 1 Required Encounter Details Date Type Department Care Team Description 08/28/2017 Office Visit [facility] Sohail Chaudhry, Ophthalmology - Paddy BARRAZA [place] [address] [phone] [place] [address] (Wo rk) Social History Tobacco [...] Chaudhry MD - 08/28/2017 0000 EDT [facility] NEURO-OPHTHALMOLOGY CONSULTATION - 08/28/2017 Alison Barreto OD [address] 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 Her surgical historyincludes a tubal ligation and bilateral cataract extraction as noted above. The social history reveals that the patient has greater than 37-ibjs-hkuv history of smoking and quit approximately 10 [...] interval. Sincerely, Sohail Chaudhry MD Diplomate, the [place] Board of Psychiatry & Neurology flow manager Department of Ophthalmology NEURO-OPHTHALMOLOGY cc: Zabrina Ambriz MD, [facility] [address] [facility], [place] [address] Alison Barreto OD, [address] [facility], [address], [place] [address] Veronica Caban PA, [address] [facility], [place] [address] ( ) ADDENDUM: The patient's B12 level [...] Anatomical Region Laterality Modality Other Specimen Narrative [facility] - 09/14/2017 12:[address] HEAD W/WO CONTRAST, CT ORBITS W/WO CONTRAST ??09/14/2017 9:33 AM CLINICAL HISTORY: H53.40-Unspecified vis ual field [id number]; bi-temporal visual field defects COMPARISON: No relevant [...] AM CLINICAL HISTORY: H53.40-Unspecified vis ual field [id number]; bi-temporal visual field defects COMPARISON: No relevant [...] Phon e Number [facility] CT HEAD W/WO CONTRAST (09/14/2017 9:33 EDT) Anatomical Region Laterality Modality Other Specimen Narrative [facility] - 09/14/2017 12:[address] HEAD W/WO CONTRAST, CT ORBITS W/WO CONTRAST ??09/14/2017 9:33 AM CLINICAL HISTORY: H53.40-Unspecified vis ual field [id number]; bi-temporal visual field defects COMPARISON: No relevant [...] AM CLINICAL HISTORY: H53.40-Unspecified vis ual field [id number]; bi-temporal visual field defects COMPARISON: No relevant [...] Phon e Number [facility] (ABNORMAL) HOMOCYSTEINE (08/28/2017 [...] - Blood Performing Organization Address City/[facility] Code Phon e Number [facility] [address] [place] [address] SERVICES PROTEIN S ACTIVITY (08/28/2017 11:09 EDT) [...] City/[facility]/ZIP Code Phon e Number [facility] [address] [place] [address] SERVICES (ABNORMAL) HEMAGRAM AND DIFFERENTIAL (08/28/2017 11:09 EDT) Pathologist Sig nature WBC 4.32 4.0 - 12.4 [facility] K/[facility] LABORATORY SERVICES RBC 4.13 3.86 - 5.04 [facility] M/[facility] LABORATORY SERVICES Hemoglobin 12.9 11.6 - [...] SERVICES PLT 231 141 - 377 K/[facility] LABORATORY SERVICES MPV 9.6 9.5 - [...] 2.20 - 8.85 [facility] K/[facility] LABORATORY SERVICES ABS Lymphs 0.99 (L) 1.09 - 3.30 [facility] K[facility] LABORATORY SERVICES ABS Monocytes 0.38 0.1 - 0.8 /[facility] LABORATORY SERVICES ABS Eosinophils 0.03 0.03 - 0.61 [facility] K/[facility] LABORATORY SERVICES ABS Basophils 0.02 0.01 - 0.11 [facility] K[facility] LABORATORY SERVICES ABS Immature Grans 0.01 0 - 0.06 /[facility] LABORATORY SERVICES Type of Diff: Automated [facility] SERVICES Specimen Blood specimen (specimen) - Blood Performing Organization Address City/[facility]/ZIP Code Phon e Number [facility] [address] [place] [address] SERVICES SYPHILIS SEROLOGY (08/28/2017 11:09 EDT) Syphilis Serology NegativeComment: [facility] Reference Range: LABORATORY SERVICES Negative Specimen Blood specimen (specimen) - Blood Performing Organization Address [facility] Phon e Number [facility] [address] [place] [address] SERVICES ANGIOTENSIN CONVERTING ENZYME (DES) (08/28/2017 11:09 EDT) Angiotensin 17 8 - 53 U/L [facility] Converting Enzyme Comment: LABORATORY Performed or Referred by: [facility], [address] [place] [address], Lab Dir: Nimesh Osorio I I, M.D., Ph.D. Specimen Blood specimen (specimen) - Blood Performing Organization Address [facility] Phon e Number [facility] [address] [place] [address] SERVICES SED. RATE:WESTERGREN (08/28/2017 11:09 EDT) Pathologist Sig nature Sed. Rate Westergren 2 0 - 30 mm/hr [facility] SERVICES Specimen Blood specimen (specimen) - Blood Performing Organization Address [facility]/ZIP [facility] Phon e Number [facility] [address] [place] [address] SERVICES BUN (08/28/2017 11:09 EDT) Pathologist [facility] nature BUN 17 10 - 26 mg/dl [facility] LAB[facility]ATO RY SERVICES Specimen Blood specimen (specimen) - Blood Performing Organization Address [facility]/ZIP [facility] Phon e Number [facility] [address] [place] [address] SERVICES FOLATE (08/28/2017 11:09 EDT) Pathologist Sig nature Folate 19.1 ng/ml [facility] Comment: LABORATORY SERVICES Deficient: ??Less than 3.4 ng/mL Indeterminate: ??3.4-5.4 ng/mL Normal: ??Greater than 5.4 ng/mL The results of this assay can be falsely elevated due to the consumption of Biotin. Specimen Blood specimen (specimen) - Blood Performing Organization Address [facility]/ZIP [facility] Phon e Number [facility] [address] [place] [address] SERVICES CREATININE (08/28/2017 11:09 EDT) Creatinine 0.80 0.52 - 1.04 [facility] mg/dl LABORATORY SERVICES GFR, Calculated 72 >60 [facility] Comment: ml/min/1.73m2 LABORATORY eGFR calculated using CKD-EPI equation for SERVICES non Americans. Multiply eGFR by 1.16 for Americans. Specimen Blood specimen (specimen) - Blood Performing Organization Address City/[facility]/ZIP [facility] Phon e Number [facility] [address] [place] [address] SERVICES C REACTIVE PROTEIN (08/28/2017 11:09 EDT) Pathologist Sig nature C Reactive Protein <7.0 <10.0 mg/L [facility] SERVICES Specimen Blood specimen (specimen) - Blood Performing Organization Address [facility] e Number [facility] [address] [place] [address] SERVICES (ABNORMAL) METHYLMALONIC ACID (08/28/2017 11:09 EDT) Pathologist [facility] Methylmalonic Acid 0.84 (H) <=0.40 [facility] Comment: nmol/mL CENTER (Note) LABORATORY In this sample, the concentration of methylmalonic aci d SERVICES (MMA) was elevated. This finding is likely related to vitamin B12 deficiency. . ADDITIONAL INFORMATION ------ This test was developed and its performance characteri stics determined by [facility] in a manner consistent with CLIA requirements. This test has not been cleared or approv ed by the U.S. Food and Drug Administration. Performed or Referred by: [facility], [address] [place] [address], Lab Dir: Nimesh junior II, M.D., Ph.D. Specimen Blood specimen (specimen) - Blood Performing Organization Address City/[facility] Phon e Number [facility] [address] [place] [address] SERVICES VITAMIN B12 (08/28/2017 11:09 EDT) Pathologist [facility] Vitamin B-12 215 355 - 911 [facility] Comment: pg/ml LABORATORY SERVICES The results of this assay can be falsely lowered due to the consumption of Biotin. Specimen Blood specimen (specimen) - Blood Performing Organization Address City/[facility]/ZIP Code Phon e Number [facility] [address] [place] [address] SERVICES VITAMIN A, S (08/28/2017 11:09 EDT) Vitamin A 60.6 32.5 - 78.0 [facility] Comment: mcg/dL LABORATORY (Note) SERVICES . ADDITIONAL INFORMATION ------ This test was developed and its performance characteri stics determined by [facility] in a manner consistent with CLIA requirements. This test has not been cleared or approv ed by the U.S. Food and Drug Administration. Performed by: [facility] Labs: [address], [place] [address], Lab Dir: Nimesh Osorio II, M.D., Ph.D. Specimen Blood specimen (specimen) - Blood Performing Organization Address City/[facility] Code Phon e Number [facility] [address] [place] [address] SERVICES documented in this encounter Visit Diagnoses [...] Periphery Normal Normal Wearing Rx Sphere Cylinder Keystone Add Right eye -1.25 +1.25 180 +2.50 Left eye +0.50 Sphere +2.50 Age: 1m Type: PAL Manifest Refraction (Retinoscopy) Sphere Cylinder Keystone Dist VA Add Near VA Right eye -1.00 +1.50 010 20/25+ +2.50 J1+ Left eye Bybee +0.75 165 20/30 +2.50 J2 Care Teams Inspecting And Testing Lead Hand Relationship Specialty Start Date End Date Raquel Martin PA-C PCP - General 08/28/17 [address] [place] [phone] documented as of this encounter
--- OUTSIDE RECORDS SUMMARY | 2021-12-12 11:17 | XMS_ITS | Encounter Summary ---
:[address] [facility] Address [address] [place] [address] Care Team Providers Name Role Phone Unavailable Primary Care Provider Unavailable Encounter Details Date Type Department Care Team Description 09/07/2006 Results Only [facility] - Anthony Rubin MD Maple conversion [address] [place] [address] [place] [address] Social History Tobacco Use Types Packs/Day Years [...] cancers. LAB Report Status Final [facility] [id number] LAB Specimen Performing Organization Address City/State/ZIP Code Phon e Number [facility] [address] [place] [address] SERVICES [facility] [address] [place] [address] CYTOPATHOLOGY (09/07/2006 0:00 EDT) Pathology Report: CYTOPATHOLOGY REPORT [facility] Reports generated via electronic interface contain audelia ginal data; however they are lacking the format of the original re port. Caution should be taken when reading/interpreting unfo rmatted reports. Name: ? REHAN FRITZ ? Accession #: ? [id number] : ? 1940 (Age: 66) ??F ?Collect Date: ? 08/24 Location: ? [facility] ? Receive Date : ? 09/10/2006 Provider: ?LUDY RUBIN MD Copy to: ? Specimen/Source: ? ThinPrep Pap Test, Cervix/Endocervix, processed on [employer] ThinPrep Imaging System, with manual evaluation Last [...] undetermined significance (ASC-US). EDUCATIONAL NOTES/RECOMMENDATIONS ? [facility] recommends joni wing the 2001 Consensus Guidelines for the Management of Women with Cervical Cytological Abnormalities (JAM A,2002;287:2120-9). Management algorithms have b een distributed by [facility] and are available online at www.ASCCP.org. ? Document reviewed and electronically signed by: ? TERESA BETANCOURT MD ? Report Date: ??09/17/2006 09:36 End of Report Specimen Performing Organization Address City/State/ZIP Code Phon e Number [facility] [address] [place] [address] SERVICES [facility] [address] [place] [address] documented in this encounter Visit Diagnoses Not on filedocumented in this encounter
--- OUTSIDE RECORDS SUMMARY | 2021-12-12 11:17 | XMS_ITS | Encounter Summary ---
:[address] [facility] Address [address] [place] [address] Care Team Providers Name Role Phone Unavailable Primary Care Provider Unavailable Encounter Details Date Type Department Care Team Description 04/20/2009 Orders Only [facility] Samara Rubin MD Laboratory Services - [address] [place] [address] [place] [address] Social History Tobacco Use Types Packs/Day [...] Code Phon e Number [facility] [address] [place] [address] SERVICES [facility] [address] [place] [address] CYTOPATHOLOGY (04/20/2009 0:00 EST) Pathology Report: CYTOPATHOLOGY REPORT ? ROWAN ALL EN ? LAB Reports generated via electr onic interface contain original data; ? however they are lacking the format of the original report. ? Caution should be taken when reading/interpreting unformatted reports. ? Name: ? REHAN FRITZ ? Accession #: ? [id number] ? : ? 1940 (Age: 68) ??F [...] and electr onically signed by: ? Silvia Fishers, [place]( CP) ? Report Date: ??01/28/ 2010 10:14 ? End of Report ? Specimen Performing Organization Address City/State/ZIP Code Phon e Number [facility] [address] [place] [address] SERVICES [facility] [address] [place] [address] documented in this encounter Visit Diagnoses Not on filedocumented in this encounter
--- OUTSIDE RECORDS SUMMARY | 2021-12-12 11:17 | XMS_ITS | Encounter Summary ---
:1940 Author Organization [facility] Address [address] [place] [address] Care Team Providers Name Role Phone Unavailable Primary Care Provider Unavailable Encounter Details Date Type Department Care Team Description 02/07/2000 Results Only [facility] - Nimesh Castelan MD conversion [address] [place] [address] Social History Tobacco Use Types Packs/Day Years [...] LAB Reports generated via electronic interface contain audelai ginal data; however they are lacking the format of the original re port. Caution should be taken when reading/interpreting unfo rmatted reports. Name: ? REHAN FRITZ ? Accession #: ? [id number] : ? 1940 (Age: 59) ??F ?Collect [...] Organization Address City/State/ZIP Code Phon e Number [facility] [address] [place] [address] SERVICES [facility] [address] [place] [address] documented in this encounter Visit Diagnoses Not on filedocumented in this encounter
--- OUTSIDE RECORDS SUMMARY | 2021-12-12 11:17 | XMS_ITS | Encounter Summary ---
:1940 Author Organization [facility] Address [address] [place] [address] Care Team Providers Name Role Phone Unknown, Provider Primary Care Provider Encounter Details Date Type Department Care Team Description 12/07/2011 Results Only [facility] Samara Rubin MD Laboratory Services - [address] [place] [address] [place] [address] Social History Tobacco Use Types Packs/Day [...] REHAN FRITZ ? Accession #: ? [id number] : ? 1940 (Age: 71) ??F ?Collect [...] City/State/ZIP Code Phon e Number [facility] [address] [place] [address] SERVICES [facility] [address] [place] [address] documented in this encounter Visit Diagnoses Not on filedocumented in this encounter Care Teams Sales Training Representative Relationship Specialty Start Date End Date Unknown, Provider, PCP - General 06/30/11 08/27/17 documented as of this encounter
--- OUTSIDE RECORDS SUMMARY | 2021-12-12 11:17 | XMS_ITS | Encounter Summary ---
:1940 Author Organization [facility] Address [address] [place] [address] Care Team Providers Name Role Phone Unavailable Primary Care Provider Unavailable Encounter Details Date Type Department Care Team Description 09/05/2005 Results Only [facility] - Anthony Rubin MD Maple conversion [address] [place] [address] [place] [address] Social History Tobacco Use Types Packs/Day Years [...] REHAN FRITZ ? Accession #: ? [id number] : ? 1940 (Age: 65) ??F ?Collect Date: ? 08/24 Location: ? [facility] ? Receive Date : ? 09/07/2005 Provider: ?LUDY RUBIN MD Copy to: ? Ladklaudia First ?[facility] ?[address] ?[place], [place] [address] ? Specimen/Source: ? ThinPrep Pap Test, Cervix/Endocervix, processed on [employer] ThinPrep Imaging System, with manual evaluation Last [...] Organization Address City/State/ZIP Code Phon e Number [facility] [address] [place] [address] SERVICES [facility] [address] [place] [address] documented in this encounter Visit Diagnoses Not on filedocumented in this encounter
--- OUTSIDE RECORDS SUMMARY | 2021-12-12 11:17 | XMS_ITS | Encounter Summary ---
:1940 Author Organization [facility] Address [address] [place] [address] Care Team Providers Name Role Phone Unavailable Primary Care Provider Unavailable Encounter Details Date Type Department Care Team Description 09/09/2004 Results Only [facility] - Anthony Rubin MD Maple conversion [address] [place] [address] [place] [address] Social History Tobacco Use Types Packs/Day Years [...] REHAN FRITZ ? Accession #: ? [id number] : ? 1940 (Age: 64) ??F ?Collect [...] Organization Address City/State/ZIP Code Phon e Number [facility] [address] [place] [address] SERVICES [facility] [address] [place] [address] documented in this encounter Visit Diagnoses Not on filedocumented in this encounter
--- OUTSIDE RECORDS SUMMARY | 2021-12-12 11:17 | XMS_ITS | Encounter Summary ---
:1940 Author Organization [facility] Address [address] [place] [address] Care Team Providers Name Role Phone Unavailable Primary Care Provider Unavailable Encounter Details Date Type Department Care Team Description 03/29/2007 Results Only [facility] - Anthony Rubin MD Maple conversion [address] [place] [address] [place] [address] Social History Tobacco Use Types Packs/Day Years [...] ? ThinPrep Pap Test, Cervix/Endocervix, processed on [employer] ThinPrep Imaging System, with manual evaluation Last [...] Number [facility] [address] [place] [address] SERVICES [facility] [address] [place] [address] documented in this encounter Visit Diagnoses Not on filedocumented in this encounter
--- OUTSIDE RECORDS SUMMARY | 2021-12-12 11:17 | XMS_ITS | Encounter Summary ---
:1940 Author Organization [facility] Address [address] [place] [address] Care Team Providers Name Role Phone Unknown, Provider Primary Care Provider Encounter Details Date Type Department Care Team Description 07/26/2015 Results Only [facility]- Samara Milan MD [phone] [address] [facility] [place] [address] Social History Tobacco Use Types Packs/Day Years Used Date Never Assessed Sex Assigned at Date Recorded Not on file documented as of this encounter Plan of Treatment Not on filedocumented as of this encounter Procedures Procedure Name Priority Date/Time Associated Diagnosis Comme nts PAP TEST- RESULT Routine 07/26/2015 0:00 EDT Resu lts for this ONLY procedure are i n the results section. documented in this encounter Results PAP TEST- RESULT ONLY (07/26/2015 0:00 EDT) Pathology Report: CYTOPATHOLOGY REPORT [facility] Reports generated via electronic interface contain audelia ginal data; SERVICES however they are lacking the format of the original re port. Caution should be taken when reading/interpreting unfo rmatted reports. Name: ? REHAN FRITZ ? Accession #: ? [id number] : ? 1940 (Age: 75) ??F ?Collect Date: ? 2015 Location: ? [facility] ? Receive Date : ? 07/27/2015 Provider: ?SAMARA BLANCO MD Copy to: ?CLAY GAMA PA-C ? Specimen/Source: ? Pap Test, Cervix/Endocervix, ThinPrep Imaging System with manual evaluation Last Menstrual Period: ? Previous Gynecologic Pathology: ? HPV ? SPECIMEN ADEQUACY ? Satisfactory for Evaluation - transformation zone component present GENERAL CATEGORIZATION ? Negative for Intraepithelial Lesion or Malignan cy ? Document reviewed and electronically signed by: ? HERNANDEZ Borja(ASCP) ? Report Date: ??08/06/2015 16:56 HPV with Pap Test ? Date Ordered: ? 07/28/2015 ? Status: ?? S igned Out ?Date Complete: ? 07/29/2015 ? By: ??Sys tem Interface ? Date Reported: ? 07/29/2015 ? Interpretation RESULT: Positive for high or intermediate risk HPV. E6 OR E7 mRNA from one or more types of HPV types 16,1 8,31, 33,35,39,45,51,52,56,58,59,66, and 68 is detected by cyanide case hardener mediated amplification. High and intermediate risk HPV types are associated wi th most squamous intraepithelial lesions and cervical can cers. Comments Document reviewed and electronically signed by: ? System Interface ? Report date: 07/29/2015 By the signature above, the attending physician certif ies that he/she has personally conducted a gross and/or microscopic examin ation of the described specimens and rendered or confirmed the above diagnosi s. End of Report Specimen Performing Organization Address City/State/ZIP Code Phon e Number [facility] [address] [place] [address] SERVICES documented in this encounter Visit Diagnoses Not on filedocumented in this encounter Care Teams Gear Shaper Set Up Operator Relationship Specialty Start Date End Date Unknown, Provider, PCP - General 06/30/11 08/27/17 documented as of this encounter
--- OUTSIDE RECORDS SUMMARY | 2021-12-12 11:17 | XMS_ITS | Encounter Summary ---
:1940 Author Organization [facility] [place] [address] Care Team Providers Name Role Phone Raquel Martin Primary Care Provider Reason for Visit Reason Comments Follow-up Skin Check Encounter Details Date Type Department Care Team Description 04/18/2018 Office Visit Dermatology at [facility] Niko Mars MD Xerosis cutis; [address] [place] [address] [place] [address] [place] [address] [phone] (Wo rk) Social History Tobacco Use Types [...] cerebral aneurysm repair in October 2017 at [facility]. There was been no change in her [...] disorder documented in this encounter Care Teams Consulting Project Director Relationship Specialty Start Date End Date Raquel Martin PA PCP - General 02/26/12 11/11/19 [address] [place] [address] documented as of this encounter
--- OUTSIDE RECORDS SUMMARY | 2021-12-12 11:17 | XMS_ITS | Encounter Summary ---
:1940 Author Organization [facility] Address [address] [place] [address] Care Team Providers Name Role Phone Unavailable Primary Care Provider Unavailable Encounter Details Date Type Department Care Team Description 05/12/2011 Results Only [facility] Samara Rubin MD Laboratory Services - [address] [place] [address] [place] [id number] Social History Tobacco Use Types Packs/Day [...] ? REHAN FRITZ ? Accession #: ? [id number] ? : ? 1940 (Age: 71) ??F [...] Organization Address City/State/ZIP Code Phon e Number [facility] [address] [place] [address] SERVICES [facility] [address] [place] [address] documented in this encounter Visit Diagnoses Not on filedocumented in this encounter
== END ==
PROVIDERS: PCP Physician Assistant Medical; Visit Provider Physician Assistant Medical
DX: J98.8 Other specified respiratory disorders (principal)
CPT/HCPCS: 71046

== ENCOUNTER 2021-12-12 18:11 | Outpatient (REF) | payer MEDICARE, MEDICAID, SELFPAY ==
[2021-12-12 18:07] LABS: Absolute Basophil Count 0.02 10^3/uL (0.0-0.2); Absolute Eosinophil Count 0.04 10^3/uL (0.0-0.7); Absolute Monocyte Count 0.64 10^3/uL (0.1-0.8); Absolute Neutrophil Count 8.19 10^3/uL (1.2-6.7); Basophils % 0.2; Eosinophils % 0.4; HCT 45.8 % (36.0-46.0); Lymphocytes % 13.5; MCH 30.9 pg (27.0-33.0); MCHC 32.8 % (32.0-36.0); MCV 94 fL (80-95); MPV 9.5 fL (8.0-11.0); Monocytes % 6.2; Neutrophils % 78.7; Platelet Count 192 10^3/uL (130-400); RBC 4.85 10^6/uL (3.93-5.22); RDW 13.6 % (11.7-14.6); RDW-SD 47.3 fL; WBC 10.39 10^3/uL (4.4-10.8)
[2021-12-12 18:12] LABS: Anion Gap 8.6 mmol/L (3-11); BUN 31 mg/dL (7-18); CO2 29.4 mmol/L (21.0-32.0); CREATININE 1.6 mg/dL (0.55-1.02); Calcium 9.6 mg/dL (8.5-10.1); Chloride 100 mmol/L (98-107); Digoxin 1.31 ng/mL (0.90-2.00); Glucose 120 mg/dL (74-106); Potassium 4.5 mmol/L (3.5-5.1); Sodium 138 mmol/L (136-145)
== END 2021-12-12 18:12 | disposition home or self-care (01) ==
LOC: NCHCN 18:11
PROVIDERS: PCP Physician Assistant Medical; Visit Provider Physician Assistant Medical
DX: R79.89 Other specified abnormal findings of blood chemistry (principal); R06.00 Dyspnea, unspecified
CPT/HCPCS: 80048; 80162; 85025

== ENCOUNTER 2022-01-03 03:00 | Outpatient (CLI) | payer MEDICARE, MEDICAID, SELFPAY ==
[2022-01-03 12:28] LABS: Abs Immature Grans 0.18 10^3/uL (0.0-0.06); Absolute Basophil Count 0.03 10^3/uL (0.0-0.2); Absolute Eosinophil Count 0.07 10^3/uL (0.0-0.7); Absolute Monocyte Count 0.84 10^3/uL (0.1-0.8); Absolute Neutrophil Count 7.07 10^3/uL (1.2-6.7); Basophils % 0.3; Eosinophils % 0.7; Immature Grans % 1.8; Lymphocytes % 16.3; MCH 30.7 pg (27.0-33.0); MCHC 31.9 % (32.0-36.0); MCV 96 fL (80-95); MPV 9.3 fL (8.0-11.0); Monocytes % 8.6; Neutrophils % 72.3; Platelet Count 177 10^3/uL (130-400); RBC 4.89 10^6/uL (3.93-5.22); RDW-SD 49.3 fL; WBC 9.79 10^3/uL (4.4-10.8)
[2022-01-03 12:59] LABS: ALT 41 U/L (14-59); AST 32 U/L (15-37); Albumin 3.6 g/dL (3.4-5.0); Alkaline Phosphatase 51 U/L (46-116); BUN 38 mg/dL (7-18); Bilirubin, Total 0.8 mg/dL (0.2-1.0); CREATININE 1.9 mg/dL (0.55-1.02); Calcium 9.1 mg/dL (8.5-10.1); Chloride 100 mmol/L (98-107); Estimated GFR 26.53 (mL/min/1.73m2); Glucose 94 mg/dL (74-106); NT-proBNP 3156 pg/mL (<300); Potassium 4.2 mmol/L (3.5-5.1); Sodium 138 mmol/L (136-145); Total Protein 6.5 g/dL (6.4-8.2)
== END 2022-01-03 03:01 | disposition home or self-care (01) ==
LOC: LOS 03:00
PROVIDERS: PCP Physician Assistant Medical; Visit Provider Physician Assistant Medical
DX: R06.09 Other forms of dyspnea (principal)
CPT/HCPCS: 36415; 80053; 83880; 85025

== ENCOUNTER → 2022-02-28 10:27 | Outpatient (BNVA) | payer MEDICARE, MEDICAID, SELFPAY | PROVIDERS: PCP Physician Assistant Medical; Visit Provider Internal Medicine Cardiovascular Disease | DX: I48.20 Chronic atrial fibrillation, unspecified (principal); I50.30 Unspecified diastolic (congestive) heart failure; R06.09 Other forms of dyspnea; J44.9 Chronic obstructive pulmonary disease, unspecified; Z79.01 Long term (current) use of anticoagulants | CPT/HCPCS: 99214; 99213 ==

== ENCOUNTER 2022-06-01 01:31 | Outpatient (CLI) | payer MEDICARE, MEDICAID, SELFPAY ==
--- NOTE | 2022-06-01 11:28 | DI.CT_ITS ---
Exam(s) CT CHEST HIGH RESOLUTION EXAM: CT CHEST HIGH RESOLUTION CLINICAL HISTORY: concern for ILD based on abnormal xray,r93.89. TECHNIQUE: Imaging protocol: Axial computed tomography images were obtained and coronal and sagittal reformatted images were created and reviewed. COMPARISON: CT CHEST WITH CONTRAST from 08/30/2010 CR XR CHEST 2V PA LATERAL from 12/12/2021 FINDINGS: Tracheobronchial tree: Patent where visualized. No significant bronchiectasis. Mediastinum and Fany: No dominant adenopathy or fluid collection. Pulmonary parenchyma: No consolidation or dominant measurable mass. Moderate emphysematous changes, centrilobular, greater in the upper lobes. Interstitial thickening greatest at the lung bases. Mult iple scattered tiny reticular nodules bilaterally, greater in the upper lobes. Scattered calcified n odules. No suspicious masses. Scattered areas of scarring. Pleura: Small right pleural effusion. Trace left pleural effusion. No pneumothorax. Heart: The heart is mildly dilated. Mild coronary artery calcifications are seen. Aorta: Thoracic aorta non-dilated. Atherosclerotic changes. Upper abdomen: Fatty infiltration of the liver. Status post cholecystectomy. No biliary dilatation . Splenomegaly. Lymph nodes: Small mediastinal lymph nodes and likely reactive. Esophagus: Fluid and/or debris in es ophagus could indicate reflux. No visible hiatal hernia. Bones:Mild degenerative changes. No compression fractures. Tubes, Catheters, and Lines: None IMPRESSION: Moderate emphysematous changes. Abnormal reticulonodular densities scattered throughout both upper a nd lower lobes. RADIATION DOSE DELIVERED: 436.9mGy.cm Total DLP DATA REPOSITORY: All CT scans at this facility are submitted to the National Radiology Data Registry (NRDR) Dose Index Registry (DIR) with the [employer] (ACR). RADIATION OPTIMIZATION: All CT scans at this facility use at least one of these dose optimization te chniques: automated exposure control; mA and/or kV adjustment per patient size (includes targeted exa ms where dose is matched to clinical indication); or iterative reconstruction.
== END 2022-06-01 01:51 ==
PROVIDERS: PCP Physician Assistant Medical; Visit Provider Student in an Organized Health Care Education/Training Program
DX: J43.9 Emphysema, unspecified (principal); R93.89 Abnormal findings on diagnostic imaging of other specified body structures
CPT/HCPCS: 71250

== ENCOUNTER 2022-06-07 11:29 | Outpatient (REF) | payer MEDICARE, MEDICAID, SELFPAY ==
[2022-06-07 15:36] LABS: Anion Gap 5.7 mmol/L (3-11); BUN 13 mg/dL (7-18); CO2 32.3 mmol/L (21.0-32.0); CREATININE 1.4 mg/dL (0.55-1.02); Chloride 103 mmol/L (98-107); Estimated GFR 38.03 (mL/min/1.73m2); Glucose 102 mg/dL (74-106); Sodium 141 mmol/L (136-145)
== END 2022-06-07 11:30 | disposition home or self-care (01) ==
LOC: NCHCN 11:29
PROVIDERS: PCP Physician Assistant Medical; Visit Provider Physician Assistant Medical
DX: I48.91 Unspecified atrial fibrillation (principal); I10 Essential (primary) hypertension
CPT/HCPCS: 80048

== ENCOUNTER 2022-06-12 12:11 | Outpatient (REF) | payer MEDICARE, MEDICAID, SELFPAY ==
[2022-06-15 14:53] LABS: Blastomyces Ag Result Not Detected; Blastomyces Ag Value Not Detected
== END 2022-06-12 12:12 | disposition home or self-care (01) ==
LOC: LBN 12:11
PROVIDERS: PCP Physician Assistant Medical; Visit Provider Student in an Organized Health Care Education/Training Program
DX: J84.9 Interstitial pulmonary disease, unspecified (principal); J44.9 Chronic obstructive pulmonary disease, unspecified; R09.3 Abnormal sputum
CPT/HCPCS: 87449; 87070; 87205

== ENCOUNTER 2022-06-13 02:38 | Outpatient (CLI) | payer MEDICARE, MEDICAID, SELFPAY ==
[2022-06-13 13:27] LABS: Procalcitonin < 0.1 ng/mL
[2022-06-13 22:16] LABS: Rheumatoid Factor <8.6 IU/mL (<12.0)
[2022-06-14 09:58] LABS: Cyclic Citrullinated Peptide <2.5 U/mL (<5.0)
[2022-06-15 14:16] LABS: Fungitell Qualitative Negative (Negative); Fungitell Quantitative Value <31 pg/mL (<60 pg/mL)
[2022-06-15 14:59] LABS: TB Interpretation Negative (Negative); TB1 Ag minus Nil 0.14 IU/ml; TB2 Ag minus Nil 0.14 IU/mL
[2022-06-15 15:53] LABS: ANA Interpretation Positive (Negative); ANA Titer Pattern 1:320 Speckled
[2022-06-16 16:17] LABS: Alter tenuis/alternata IgG <2.0 mcg/mL (<12.0); Aspergillus fumigatus IgG 23.3 mcg/mL (<46.0); Aureobasidium pullulans IgG 3.4 mcg/mL (<18.0); Laceyella sacchari IgG 2.6 mcg/mL (<25.0); Micropolyspora faeni IgG <2.0 mcg/mL (<5.0); Penicillium Chrysogenum IgG 13.9 mcg/mL (<22.0); Phoma betae IgG 3.5 mcg/mL (<8.0)
[2022-06-17 11:44] LABS: dsDNA Ab, IgG <12.3 IU/mL (<30.0)
== END 2022-06-13 02:39 | disposition home or self-care (01) ==
LOC: LOS 02:38
PROVIDERS: PCP Physician Assistant Medical; Visit Provider Student in an Organized Health Care Education/Training Program
DX: J84.9 Interstitial pulmonary disease, unspecified (principal); R91.8 Other nonspecific abnormal finding of lung field; R59.0 Localized enlarged lymph nodes
CPT/HCPCS: 84145; 86001; 86200; 87449; 86038; 86225; 86431; 86480; 87070; 87205; 87385

== ENCOUNTER 2022-06-22 02:43 | Outpatient (CLI) | payer MEDICARE, MEDICAID, SELFPAY ==
[2022-06-22 12:32] LABS: Anion Gap 6.5 mmol/L (3-11); BUN 11 mg/dL (7-18); CO2 33.5 mmol/L (21.0-32.0); CREATININE 1.3 mg/dL (0.55-1.02); Calcium 9.3 mg/dL (8.5-10.1); Chloride 101 mmol/L (98-107); Estimated GFR 41.57 (mL/min/1.73m2); Glucose 125 mg/dL (74-106); Potassium 4.2 mmol/L (3.5-5.1); Sodium 141 mmol/L (136-145)
== END 2022-06-22 02:44 | disposition home or self-care (01) ==
LOC: LOS 02:44
PROVIDERS: PCP Physician Assistant Medical; Visit Provider Physician Assistant Medical
DX: R06.09 Other forms of dyspnea (principal)
CPT/HCPCS: 36415; 80048

== ENCOUNTER → 2022-08-29 08:52 | Outpatient (BNVA) | payer MEDICARE, MEDICAID, SELFPAY | PROVIDERS: PCP Physician Assistant Medical; Visit Provider Internal Medicine Cardiovascular Disease | DX: J84.9 Interstitial pulmonary disease, unspecified (principal); Z79.01 Long term (current) use of anticoagulants; R63.4 Abnormal weight loss; I11.0 Hypertensive heart disease with heart failure; I48.20 Chronic atrial fibrillation, unspecified; I50.30 Unspecified diastolic (congestive) heart failure; J44.9 Chronic obstructive pulmonary disease, unspecified | CPT/HCPCS: 99214 ==

== ENCOUNTER 2022-09-08 12:24 | Outpatient (REF) | payer MEDICARE, MEDICAID, SELFPAY ==
[2022-09-08 17:10] LABS: Abs Immature Grans 0.01 10^3/uL (0.0-0.06); Absolute Basophil Count 0.02 10^3/uL (0.0-0.2); Absolute Eosinophil Count 0.03 10^3/uL (0.0-0.7); Absolute Lymphocyte Count 0.68 10^3/uL (1.2-3.4); Absolute Monocyte Count 0.49 10^3/uL (0.1-0.8); Absolute Neutrophil Count 3.54 10^3/uL (1.2-6.7); Basophils % 0.4; Eosinophils % 0.6; HGB 13.5 g/dL (11.2-15.7); Immature Grans % 0.2; Lymphocytes % 14.3; MCH 30.3 pg (27.0-33.0); MCHC 31.4 % (32.0-36.0); MCV 96 fL (80-95); MPV 9.4 fL (8.0-11.0); Monocytes % 10.3; Neutrophils % 74.2; Platelet Count 179 10^3/uL (130-400); RBC 4.46 10^6/uL (3.93-5.22); RDW-SD 49.5 fL; WBC 4.77 10^3/uL (4.4-10.8)
[2022-09-08 17:31] LABS: ALT 34 U/L (14-59); AST 49 U/L (15-37); Albumin 3.4 g/dL (3.4-5.0); Alkaline Phosphatase 75 U/L (46-116); Anion Gap 4.9 mmol/L (3-11); BUN 23 mg/dL (7-18); Bilirubin, Total 0.6 mg/dL (0.2-1.0); CO2 32.1 mmol/L (21.0-32.0); CREATININE 1.4 mg/dL (0.55-1.02); Calcium 9.2 mg/dL (8.5-10.1); Chloride 102 mmol/L (98-107); Estimated GFR 38.03 (mL/min/1.73m2); Glucose 95 mg/dL (74-106); Potassium 4.5 mmol/L (3.5-5.1); Sodium 139 mmol/L (136-145); Total Protein 6.7 g/dL (6.4-8.2)
== END 2022-09-08 12:25 | disposition home or self-care (01) ==
LOC: NCHCN 12:24
PROVIDERS: PCP Physician Assistant Medical; Visit Provider Physician Assistant Medical
DX: R63.4 Abnormal weight loss (principal)
CPT/HCPCS: 80053; 84443; 85025

== ENCOUNTER 2022-12-15 14:15 | Outpatient (CLI) | payer MEDICARE, MEDICAID, SELFPAY ==
[2022-12-15 13:02] LABS: Vitamin D 25 Total 23.6 ng/mL (30-100)
--- OUTSIDE RECORDS SUMMARY | 2022-12-15 14:16 | XMS_ITS | Continuity of Care Document ---
Author Name Unknown Organization [facility] Address [address] [place] [id number] Care Team Providers Care Hr Administrative Assistant Name Role Phone CLAY GAMA PA-C Primary Care Amelia juarez Encounter [facility] FIN NBR [id number] Date(s): 08/03/22 - 08/03/[address] [address]- Discharge Disposition: Home or Self Care Attending Physician: GALILEO Gates Admitting Physician: GALILEO Gates Allergies, Adverse Reactions, Alerts Substance Reaction Severity Status codeine Unknown Active erythromycin Unknown Moderate Active pseudoephedrine Unknown Active erythromycin base Unknown Active sulfa drugs Unknown unspecified Moderate Active Medications Albuterol (Eqv-Ventolin HFA) 90 mcg/inh inhalation aerosol 18 g, INHALE 2 PUFFS BY MOUTH EVERY FOUR TO SIX HOURS NEEDED, 0 Refill(s) Start Date: 08/03/22 Status: Ordered albuterol 2.5 mg/3 mL (0.083%) inhalation solution 0 Refill(s) Start Date: 07/26/22 Status: Ordered digoxin 125 mcg (0.125 mg) oral tablet 0 Refill(s) Start Date: 07/26/22 Status: Ordered doxycycline hyclate 100 mg oral capsule 14 EA, TAKE ONE CAPSULE BY MOUTH TWICE A DAY, 0 Refill(s) Start Date: 08/03/22 Status: Ordered Eliquis 5 mg oral tablet 5 mg = 1 tab, Oral, BID, # 60 tab, 0 Refill(s) Start Date: 07/26/22 Status: Ordered furosemide 40 mg oral tablet 0 Refill(s) Start Date: 07/26/22 Status: Ordered lisinopril 5 mg oral tablet 0 Refill(s) Start Date: 07/26/22 Status: Ordered Metoprolol Tartrate 50 mg oral tablet 0 Refill(s) Start Date: 07/26/22 Status: Ordered potassium chloride 10 mEq oral capsule, extended release 0 Refill(s) Start Date: 07/26/22 Status: Ordered predniSONE 20 mg oral tablet 8 EA, TAKE TWO TABLETS BY MOUTH EVERY DAY FOR 4 DAYS, 0 Refill(s) Start Date: 08/03/22 Status: Ordered Spiriva HandiHaler 18 mcg inhalation capsule 90 EA, INHALE THE CONTENT OF ONE CAPSULE VIS HANDIHALER BY MOUTH ONCE DAILY, 0 Refill(s) Start Date: 08/03/22 Status: Ordered triamcinolone 0.1% topical cream 0 Refill(s) Start Date: 07/26/22 Status: Ordered Problem List Condition Confirmation Course Effective Dates Status H ealth Status Informant Anti-nuclear factor positive Confirmed Active Carpal tunnel syndrome Confirmed Active Drug therapy finding Confirmed Active Essential hypertension Confirmed Active Intracranial aneurysm Confirmed Active Lesion of bone of left hand Confirmed Active Mantoux: positive Confirmed Active Muscle pain Confirmed Active Obese class I Confirmed Active Osteoarthritis of wrist Confirmed Active Polymyalgia rheumatica Confirmed Active Reactive airway disease Confirmed Active Recurrent major depression Confirmed Active Skin lesion Confirmed Active Spinal stenosis of lumbar region Confirmed Active Social History Social History Type Response Tobacco Never tobacco user T obacco Use:. Sex Patient Care team information Care Team Personnel Name: CLAY GAMA PA-C Position: No Access Member Role: Primary Care Physician Address: Address: [address] [place] [id number] Care Team Related Persons Name: PEDRO LEMA Name: LAKESHIA FRITZ Name: JOSE FRITZ Address: Home [address] [place], [place] [id number] [facility]
--- OUTSIDE RECORDS SUMMARY | 2022-12-15 14:16 | XMS_ITS | Continuity of Care Document ---
Author Name Unknown Organization [facility] Address [address] [place] [address] Care Team Providers Care Rfid Systems Engineer Name Role Phone NATAN ORTIZ, CLAY TOLBERT Primary Care Amelia juarez Encounter [facility]BR [id number] Date(s): 08/24/22 - 08/24/22 [facility] [address] [place], [place] [address] Encounter Diagnosis Finger injury(Discharge Diagnosis) - 08/24/22 Discharge Disposition: Home or Self Care Attending Physician: GALILEO Gates Allergies, Adverse Reactions, Alerts Substance Reaction Severity Status codeine Unknown Active erythromycin Unknown Moderate Active pseudoephedrine Unknown Active erythromycin base Unknown Active sulfa drugs Unknown unspecified Moderate Active Functional Status 08/24/22 Other exposure to Infectious Disease Non e Medications Albuterol (Eqv-Ventolin HFA) 90 mcg/inh inhalation [...] Spinal stenosis of lumbar region Confirmed Active Vital Signs Most recent to oldest [Reference Range]: 1 Blood Pressure [90-140/60-90 mmHg] 90/58 mmHg (08/24/22 8:50 AM) Weight 71.21 kg (08/24/22 8:50 AM) Weight Measured (lbs) 156.991 lb (08/24/22 8:50 AM) Height 165.09 cm (08/24/22 8:50 AM) Height/Length Measured (inches) 65 inch (08/24/22 8:50 AM) BSA Measured 1.81 m2 (08/24/22 8:50 AM) Body Mass Index 26.13 kg/m2 (08/24/22 8:50 AM) Social History Social History Type Response Tobacco Never tobacco user T obacco Use:. Sex Physician Outpatient Note * GALILEO Gates: PERFORM Event Display: Office Clinic Note Physician Authored Date: [id number] ANNY FRITZ :1940 Age:82 years Sex:Female Visit Date:08/24/2022 Primary Care Physician: NATAN ORTIZ, CLAY TOLBERT Chief Complaint LEFT INDEX FINGER History of Present Illness The patient comes in today complaining of left index finger pain.?? When she was a little girl, sheinjured her finger on a glass milk jar. ??This was treated surgically and she was placed in extension.?? Since that time she is atrophied above her PIP joint. ??She developed a bony prominence about the middle phalanx.?? More recently she was making her bed and??caught her finger against the pillowcase causing??a??cut. ??She did go to the emergency room and a small piece of bone had fallen out.??I last saw her several weeks ago and this was starting to heal so she decided to leave it alone.?? She is now complaining of numbness and tingling in her finger that she has not had since her original injury. ??She is also complaining of??her fingers feeling cold early in the morning when she let her dog out. Review of Systems Unremarkable Physical Exam Vitals & Measurements BP:??90/58?? HT:??165.09??cm?? WT:??71.21??kg?? BMI:??26.13?? Pain Score:??1?? BSA:??1.81?? General: Alert and oriented x3, pleasant cooperative, in no acute distress, appears to be their stated age, is generally fit appearing.? Left index finger: She has atrophy of the??left index finger starting at her PIP joint onto the??end of her distal phalanx. ??She does have some scabbing in the volar aspect of her middle phalanx.??No obvious signs of infection. ??Sensation to light touch is decreased at the tip of her finger.?? She has no significant motion??of her PIP or DIP joint. ??This is her baseline. ??She has full motion of her MCP joint. Assessment/Plan 1.??Finger injury??S69.90XA The patient comes in today with a left index finger bony mass??and prominence that is causing skin??lesions.?? This is giving her discomfort when she lightly taps it against objects.?? She is generally very active and this has become bothersome. ??I would recommend that she sees a hand specialist and I will refer her to Dr. Greene??to discuss possible treatments.?? We will see her back as needed. Problem List/Past Medical History Ongoing Anti-nuclear factor positive Carpal tunnel syndrome Drug therapy finding Essential hypertension Intracranial aneurysm Lesion of bone of left hand Mantoux: positive Muscle pain Obese class I Osteoarthritis of wrist Polymyalgia rheumatica Reactive airway disease Recurrent major depression Skin lesion Spinal stenosis of lumbar region Historical No qualifying data Medications Albuterol (Eqv-Ventolin HFA) 90 mcg/inh inhalation aerosol albuterol 2.5 mg/3 mL (0.083%) inhalation solution digoxin 125 mcg (0.125 mg) oral tablet doxycycline hyclate 100 mg oral capsule Eliquis 5 mg oral tablet, 5 mg= 1 tab, Oral, BID furosemide 40 mg oral tablet lisinopril 5 mg oral tablet Metoprolol Tartrate 50 mg oral tablet potassium chloride 10 mEq oral capsule, extended release predniSONE 20 mg oral tablet Spiriva HandiHaler 18 mcg inhalation capsule triamcinolone 0.1% topical cream Allergies erythromycin??(Unknown) sulfa drugs??(Unknown, unspecified) codeine erythromycin base pseudoephedrine Social History Electronic Cigarette/Vaping Electronic Cigarette Use: Never. Tobacco Never tobacco user Tobacco Use:. Electronically Signed on 08/24/22 12:28 PM GALILEO Gates Electronically Signed on 08/24/22 03:44 PM Tuan Odom MD Patient Care team information Care Team Personnel Name: CLAY GAMA PA-C Position: No Access Member Role: Primary Care Physician Address: Address: [address] Care Team Related Persons Name: PEDRO LEMA Name: LAKESHIA FRITZ Name: JOSE FRITZ Address: Home [address] [place], [place] [id number] [facility]
--- OUTSIDE RECORDS SUMMARY | 2022-12-15 14:16 | XMS_ITS | Continuity of Care Document ---
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 Name Role Phone CLAY GAMA PA-C Primary Care Amelia juarez Encounter [facility] NBR [id number] Date(s): 07/26/22 - 07/26/22 [facility] [address] [place] [address]- [place] Encounter Diagnosis Finger injury(Discharge Diagnosis) - 07/26/22 Tophi(Discharge Diagnosis) - 07/26/22 Discharge Disposition: Home or Self Care Attending Physician: Sohail Ward MD Admitting Physician: Sohail Ward MD Allergies, Adverse Reactions, Alerts Substance Reaction Severity Status codeine Unknown Active pseudoephedrine Unknown Active erythromycin base Unknown Active sulfa drugs Unknown Active Assessment and Plan Future Appointments Functional Status 07/26/22 Family Member Travel History No recent t ravel Recent Travel History No recent travel Other exposure to Infectious Disease Non e Medications albuterol 2.5 mg/3 mL (0.083%) inhalation solution 0 Refill(s) Start Date: 07/26/22 Status: Ordered cephalexin 500 mg oral capsule 500 mg = 1 cap, Oral, QID, X 7 days, # 28 cap, 0 Refill(s), 08/02/22 12:30:00 EDT, [id number], 165, cm, 07/26/22 12:02:00 EDT, Height/Length Dosing, 70.31, kg, 07/26/22 12:02:00 EDT, Weight Dosing Start Date: 07/26/22 Stop Date: 08/02/22 Status: Ordered digoxin 125 mcg (0.125 mg) oral tablet 0 Refill(s) Start Date: 07/26/22 Status: Ordered Eliquis 5 mg oral tablet [...] 0 Refill(s) Start Date: 07/26/22 Status: Ordered triamcinolone 0.1% topical cream 0 Refill(s) Start Date: 07/26/22 Status: Ordered Mental Status 07/26/22 Eye Opening Response [place] Spontaneous ly Best Verbal Response [place] Oriented Best Motor Response [place] Obeys comman ds Sel[place] Coma Score 15 Results Radiology Reports * Exam Date Time Procedure Performing Provider Status 07/26/22 11:14 AM XR Finger(s) 2+ Views Left Priya Rush (Verified) Notes: (XR Finger(s) 2+ Views Left) Reason For Exam: 2 nd digit pain XR Finger(s) 2+ Views Left EXAM DESCRIPTION: XR Finger(s) 2+ Views Left 07/26/2022 INDICATION: 2 ND DIGIT PAIN TECHNIQUE: Index finger left hand, three views COMPARISON: None IMPRESSION: No acute fracture or dislocation Lobular soft tissue calcification versus unusual foreign body adjacent to the ulnar-volar aspect of the 2nd middle phalanx measuring approximately 13 x 5 mm No significant regional arthritic changes. JOB #: [id number] Final Signed by: Efra Ritter MD Signed (Electronic Signature): 07/26/2022 11:17 am Vital Signs Most recent to oldest [Reference Range]: 1 2 Temperature Tympanic [36.6-37.9 Deg C] 3 6.5 Deg C *LOW* (07/26/22 10:21 AM) Peripheral Pulse Rate [60-100 bpm] 88 bp m (07/26/22 10:21 AM) Respiratory Rate [12-24 br/min] 14 br/mi n (07/26/22 10:21 AM) Blood Pressure [90-140/60-90 mmHg] 130/7 3mmHg (07/26/22 10:21 AM) Weight 70.31 kg (07/26/22 10:21 AM) 70.31 kg (07/26/22 10:21 AM) Weight Dosing 70.31 kg (07/26/22 12:02 PM) 70.31 kg (07/26/22 11:59 AM) Height 165.310 cm (07/26/22 10:21 AM) 165.000 cm (07/26/22 10:21 AM) Height/Length Dosing 165.000 cm (07/26/22 12:02 PM) 165.310 cm (07/26/22 11:59 AM) Body Mass Index 26.000 kg/m2 (07/26/22 10:21 AM) 26.000 kg/m2 (07/26/22 10:21 AM) Social History Social History Type Response Tobacco Never tobacco user T obacco Use:. Sex Hospital Discharge Instructions Patient Education 07/27/2022 08:32:46 Fingertip Infection Fingertip Infection There are two main types of fingertip infections: ??? Long-term (chronic) or acute paronychia. This is an infection that happens around your nail. This type of infection can start in one nail or occur gradually over time and affect more than one nail. The fingernails that are infected may become thick and deformed. This condition can also happen suddenly (be acute). ??? Felon. This is a bacterial infection in the tip of your finger (pad). A felon infection can cause a painful collection of pus (an abscess) to form inside your fingertip. If the infection is not treated, the infection can spread as deep as the tendon or bone. What are the causes? Paronychia infection can be caused by: ??? Bacteria. ??? Funguses. ??? A mix of both bacteria and funguses. A felon infection is usually caused by the bacteria that are normally found on your skin. An infection can develop if the bacteria spread through your skin to the pad of tissue inside your fingertip. What increases the risk? You are more likely to develop a fingertip infection if: ??? You have diabetes. ??? You have a weak body's defense system (immune system). ??? You work with your hands. ??? Your hands are exposed to moisture, chemicals, or irritants for long periods of time. ??? You have poor circulation. ??? You bite, chew, or pick your fingernails. What are the signs or symptoms? Symptoms of paronychia infection may affect one or more fingernails and may include: ??? Pain, swelling, and redness around the nail. ??? Pus-filled pockets at the base or side of the fingernail (cuticle). ??? Thick fingernails that separate from the nail bed. ??? Pus that drains from the nail bed. Symptoms of a felon usually affect just one fingertip pad and include: ??? Severe, throbbing pain. ??? Redness. ??? Swelling. ??? Warmth. ??? Tenderness when the affected fingertip is touched. How is this diagnosed? This condition is diagnosed based on: ??? Your medical history. ??? A physical exam. ??? Testing. If there is pus draining from the infection, it may be swabbed and sent to the lab fora culture. ??? An X-ray. This may be done to see if the infection has spread to the bone. How is this treated? Treatment for a fingertip infection may include: ??? Warm water or salt water soaks several times per day. ??? Antibiotic medicine. This may be an ointment or pills. ??? Steroid ointment. ??? Antifungal pills. ??? Drainage of pus pockets. This is done by making an incision to open the fingertip to drain pus. ??? Wearing gloves to protect your nails. Follow these instructions at home: Medicines ??? Take or apply gkfq-trb-evebpys and prescription medicines only as told by your health care provider. ??? If you were prescribed an antibiotic medicine, take or apply it as told by your health care provider. Do not stop using the antibiotic even if you start to feel better. Wound care ??? Follow instructions from your health care provider about how to take care of your wound. Make sure you: ??? Wash your hands with soap and water before and after you change your bandage (dressing). If soap and water are not available, use hand rug cleaner hand. ??? Change your dressing as told by your health care provider. ??? Leave stitches (sutures), skin glue, or adhesive strips in place. These skin closures may need to stay in place for 2 weeks or longer. If adhesive strip edges start to loosen and curl up, you maytrim the loose edges. Do not remove adhesive strips completely unless your health care provider tells you to do that. ??? Clean the infected area each day with warm water or salt water, or as told by your health care provider. ??? Gently wash the infected area with mild soap and water. ??? Rinse the infected area with water to remove all soap. ??? Pat the infected area dry with a clean towel. Do not rub it. ??? To make a salt and water mixture, completely dissolve ?1 tsp (3???6 g) of salt in 1 cup (237 mL) of warm water. ??? Check the infected area every day for more signs of infection. Watch for: ??? More redness, swelling, or pain. ??? More fluid or blood. ??? Warmth. ??? A bad smell. Bathing ??? Keep the dressing dry until your health care provider says it can be removed. ??? Ask your health care provider if you may take baths, swim, shower, or use a hot tub. To help prevent spread of the infection, you may only be allowed to take sponge baths. This is rare. ??? Do not let your bandage get wet. Cover it with a watertight covering when you take a bath or shower. General instructions ??? Raise (elevate) the infected area above the level of your heart while you are sitting or lying down or as told by your health care provider. This will help reduce inflammation. ??? Do not scratch or pick at the infected area. ??? Wear gloves as told by your health care provider. ??? Keep all follow-up visits as told by your health care provider. This is important. How is this prevented? Wear gloves when you work with your hands. ??? Wash your hands often with antibacterial soap. ??? Avoid letting your hands stay wet or irritated for long periods of time. ??? Do not bite your fingernails. ??? Do not suck on your fingers. ??? Do not pull on your cuticles. ??? Use clean scissors or nail clippers to trim your nails. Do not cut your fingernails very short. Contact a health care provider if: ??? Your pain medicine is not helping. ??? You have more redness, swelling, or pain at your fingertip. ??? You continue to have fluid, blood, or pus coming from your fingertip. ??? Your infection area feels warm to the touch. ??? You continue to notice a bad smell coming from your fingertip or your dressing. Get help right away if: ??? The area of redness is spreading, or you notice a red streak going away from your fingertip. ??? You have a fever. Summary ??? Paronychia is an infection that happens around your nail. Paronychia infection can be caused bybacteria, funguses, or a mix of both. ??? A felon infection is usually caused by the bacteria that are normally found on your skin. An infection can develop if the bacteria spread through your skin to the pad of tissue inside your fingertip. ??? Follow instructions from your health care provider about how to take care of the infection. ??? Take or apply mpmf-qfm-qdivyru and prescription medicines only as told by your health care provider. ??? Contact a health care provider if you have more drainage, redness, swelling, or pain at your fingertip. This information is not intended to replace advice given to you by your health care provider. Make sure you discuss any questions you have with your health care provider. Document Revised: 06/21/2021 Document Reviewed: 06/21/2021 [email or web address] Patient Education ?? 2021 [employer] Follow Up Care 07/26/2022 10:21:24 With:Follow up with Orthopedic Address:Unknown When:1 month Discharge instructions * Event Display: Discharge Instructions Physician Emergency department Note * Kim Ortiz, NEURODIAGNOSTIC TECHNOLOGIST: PERFORM Event Display: ED Note Physician Authored Date: [id number] ANNY FRITZ :1940 Age:82 years Sex:Female Visit Date:07/26/2022 Primary Care Physician: NATAN ORTIZ, CLAY TOLBERT Basic Information Time Seen: Kim Hawkins Angel, NEURODIAGNOSTIC TECHNOLOGIST / 07/26/2022 10:24 Chief Complaint left finger open wound pointer finger Physical Exam Vitals & Measurements T:??36.5?C ??(Tympanic)?? HR:??88??(Peripheral)?? RR:??14?? BP:??130/73?? SpO2:??99%?? HT:??165.310??cm?? HT:??165.000??cm?? WT:??70.31??kg?? WT:??70.31??kg?? BMI:??26.000?? BMI:??26.000?? Pain Score:??4?? O2 Therapy:??Room air?? Procedure No Qualifying Data Assessment/Plan 1.??Finger injury??S69.90XA Ordered: cephalexin 500 mg oral capsule, 500 mg = 1 cap, Oral, QID, X 7 days, # 28 cap, 0 Refill(s), 08/02/22 12:30:00 EDT, Pharmacy: [id number], 165, cm, 07/26/22 12:02:00 EDT, Height/Length Dosing, 70.31, kg, 07/26/22 12:02:00 EDT, Weight Dosing ?? 2.??Tophi??[id number] Ordered: cephalexin 500 mg oral capsule, 500 mg = 1 cap, Oral, QID, X 7 days, # 28 cap, 0 Refill(s), 08/02/22 12:30:00 EDT, Pharmacy: [facility], 165, cm, 07/26/22 12:02:00 EDT, Height/Length Dosing, 70.31, kg, 07/26/22 12:02:00 EDT, Weight Dosing ?? Orders: Discharge Patient, 07/26/22 12:33:00 EDT Medication Reconciliation New Prescription cephalexin (cephalexin 500 mg oral capsule)1 Capsules Oral (given by mouth) 4 times a day for 7 Days. Refills: 0. ?? Unchanged albuterol (albuterol 2.5 mg/3 mL (0.083%) inhalation solution) ?? apixaban (Eliquis 5 mg oral tablet)1 tab Oral (given by mouth) 2 times a day. ?? digoxin (digoxin 125 mcg (0.125 mg) oral tablet) ?? furosemide (furosemide 40 mg oral tablet) ?? lisinopril (lisinopril 5 mg oral tablet) ?? metoprolol (Metoprolol Tartrate 50 mg oral tablet) ?? potassium chloride (potassium chloride 10 mEq oral capsule, extended release) ?? triamcinolone topical (triamcinolone 0.1% topical cream) Problem List/Past Medical History Ongoing No qualifying data Historical No qualifying data Allergies codeine erythromycin base pseudoephedrine sulfa drugs Social History Electronic Cigarette/Vaping Electronic Cigarette Use: Never. Tobacco Never tobacco user Tobacco Use:. Diagnostic Results XR Finger(s) 2+ Views Left 07/26/2022 11:20 EDT XR Finger(s) 2+ Views Left ?? 07/26/22 11:17:49 EXAM DESCRIPTION: XR Finger(s) 2+ Views Left ?? 07/26/2022 ?? INDICATION: 2 ND DIGIT PAIN ?? TECHNIQUE: Index finger left hand, three views ?? COMPARISON: None ?? IMPRESSION: No acute fracture or dislocation ?? Lobular soft tissue calcification versus unusual foreign body adjacent to the ulnar-volar aspect of the 2nd middle phalanx measuring approximately 13 x 5 mm ?? No significant regional arthritic changes. ? JOB #: [id number] Kim Ortiz APRN Emergency department Discharge instructions * Kim Ortiz APRN: PERFORM Event Display: ED Discharge Information Authored Date: [id number] ANNY FRITZ :1940 Age:82 years Sex:Female Visit Date:07/26/2022 Primary Care Physician: NATAN ORTIZ, CLAY TOLBERT Discharge Instructions We would like to thank you for allowing us to assist you with your healthcare needs. The following includes patient education materials and information regarding your injury/illness. Diagnosis from Today's Visit Finger injury Tophi Discharge Vitals Temperature??(Tympanic) 97.7 ??F (36.5 ??C) Heart Rate??(Peripheral) 88 Respiratory Rate?? 14 Blood Pressure?? 130/73?? Height?? 65.08 in (165.310 cm) Height?? 64.96 in (165.000 cm) Weight?? 155.03 lb (70.31 kg) Weight?? 155.03 lb (70.31 kg) BMI?? 26.000 BMI?? 26.000 Allergies codeine erythromycin base pseudoephedrine sulfa drugs What to Do Next Instructions from Your Care Team Keep the finger clean and dry, take antibiotics as scheduled and will be cephalexin 500 mg 4 times a day for 7 days, please keep your scheduled appointment with [facility]. ??Seek urgent and or emergent care for any worsening or concerning symptoms such as fever, increased pain or swelling of the finger??or any other concerns. Upcoming Scheduled Appointments July. 2022 11:30 AM EDT ?? With: GALILEO Gates Where: [facility] [address]- Status: Confirmed You were treated today on an emergency basis; it may be steward to contact your primary care provider to notify them of your visit today. You may have been referred to your regular doctor or a specialist, please follow up as instructed. If your condition worsens or you can't get in to see the doctor, contact the Emergency Department. Medications What How Much When Why Instructions Next Dose New cephalexin (cephalexin 500 mg oral capsule) 1 Capsules Oral (given by mouth) 4 times a day Finger injury Tophi Duration: 7 Days Pickup at [facility] Unchanged albuterol (albuterol 2.5 mg/ 3 mL (0.083%) inhalation solution) Unchanged apixaban (Eliquis 5 mg oral tablet) 1 tab Oral (given by mouth) 2 times a day Unchanged digoxin (digoxin 125 mcg (0.125 mg) oral tablet) Unchanged furosemide (furosemide 40 mg oral tablet) Unchanged lisinopril (lisinopril 5 mg oral tablet) Unchanged metoprolol (Metoprolol Tartrate 50 mg oral tablet) Unchanged potassium chloride (potassium chloride 10 mEq oral capsule, extended release) Unchanged triamcinolone topical (triamcinolone 0.1% topical cream) Pharmacy Information [facility]: [address], [place] [id number] [phone] Tests Performed Radiology XR Finger(s) 2+ Views Left 07/26/2022 11:20 EDT Patient/Senior Mechanical Designer Signature Patient Name:ANNY FRITZ I have received this information and my questions have been answered. Patient/Senior Mechanical Designer Name: Patient/Senior Mechanical Designer Signature: Relationship to Patient: Witness Name/Signature: Date: Electronically Signed on: 07/26/2022 12:32 EDTSigned by:LAUREANO XR Finger - left 2 Views * Efra Ritter MD: VERIFY, VERIFY Event Display: Report EXAM DESCRIPTION: XR Finger(s) 2+ Views Left 07/26/2022 INDICATION: 2 ND DIGIT PAIN TECHNIQUE: Index finger left hand, three views COMPARISON: None IMPRESSION: No acute fracture or dislocation Lobular soft tissue calcification versus unusual foreign body adjacent to the ulnar-volar aspect of the 2nd middle phalanx measuring approximately 13 x 5 mm No significant regional arthritic changes. JOB #: [id number] Final Signed by: Efra Ritter MD Signed (Electronic Signature): 07/26/2022 11:17 am Patient Care team information Care Team Personnel Name: NATAN ORTIZ, CLAY TOLBERT Position: No Access Member Role: Primary Care Physician Address: Address: [facility] [address] [place] [address] Name: Kim Ortiz APRN Position: Physician Member Role: Physician Address: Address: [address] [place] [id number] Name: Marj Jacobo Position: Nurse Member Role: ED Nurse Care Team Related Persons Name: LAKESHIA FRITZ Name: JOSE FRITZ Address: Home [facility] [address] [place], [place] [id number] [facility]
--- OUTSIDE RECORDS SUMMARY | 2022-12-15 14:16 | XMS_ITS | Continuity of Care Document ---
Author Name Unknown Organization [facility] Address [address] [place] [address] Care Team Providers Care Media Coordinator Name Role Phone CLAY GAMA PA-C Primary Care Amelia juarez Encounter [facility] [id number] Date(s): 08/03/22 - 08/03/22 [facility] [address], [place] [address] Encounter Diagnosis Lesion of bone of left hand(Discharge Diagnosis) - 08/03/22 Discharge Disposition: Home or Self Care Attending Physician: GALILEO Gates Allergies, Adverse Reactions, Alerts Substance Reaction Severity Status codeine Unknown Active erythromycin Unknown Moderate Active pseudoephedrine Unknown Active erythromycin base Unknown Active sulfa drugs Unknown unspecified Moderate Active Functional Status 08/03/22 Other exposure to Infectious Disease Non e [...] Most recent to oldest [Reference Range]: 1 Peripheral Pulse Rate [60-100 bpm] 72 bp m (08/03/22 11:30 AM) Blood Pressure [90-140/60-90 mmHg] 118/7 5mmHg (08/03/22 11:30 AM) Weight 71.21 kg (08/03/22 11:30 AM) Weight Measured (lbs) 156.991 lb (08/03/22 11:30 AM) Height 165.09 cm (08/03/22 11:30 AM) Height/Length Measured (inches) 65 inch (08/03/22 11:30 AM) BSA Measured 1.81 m2 (08/03/22 11:30 AM) Body Mass Index 26.13 kg/m2 (08/03/22 11:30 AM) Social History Social History Type Response Tobacco Never tobacco user T obacco Use:. Sex Physician Outpatient Note * GALILEO Gates: PERFORM Event Display: Office Clinic Note Physician Authored Date: [id number] ANNY FRITZ :1940 Age:82 years Sex:Female Visit Date:08/03/2022 Primary Care Physician: CLAY GAMA PA-C Chief Complaint LEFT INDEX FINGER History of Present Illness The patient comes in today with left index finger pain. ??She states that when she was 15 years old, she slammed a glass milk bottle down on a table and??lacerated the volar aspect of her finger.?? She did go to a hospital where??it was sewn up. ??She eventually needed some graft tissue to the area? ?but has not been able to use her finger normally since that time.?? Over time the??finger startingat the PIP joint and onto the distal end became??atrophied??and she never regained her motion of the DIP joint.?? She states that last week, she was making her bed. ??She felt??something??sharp come out of her finger. ??She noticed that her finger was bleeding. ??She did go to the emergency department.?? A small piece of hard substance came out of the wound. ??The wound was??dressed and was told to follow-up with orthopedics. ??She states that it is since healed up completely. ??It feels fine and??she wants to make sure that she does not need anything else from here. Review of Systems Other than the HPI??is unremarkable today Physical Exam Vitals & Measurements HR:??72??(Peripheral)?? BP:??118/75?? SpO2:??98%?? HT:??165.09??cm?? WT:??71.21??kg?? BMI:??26.13?? BSA:??1.81?? General: Alert and oriented x3, pleasant cooperative, in no acute distress, appears to be their stated age, is generally fit appearing.? Left index finger: She does have a mild scab at the midportion of her??volar??middle phalanx.?? It??is hard to this region with no??significant??soft tissue. ??The finger is atrophied from the PIPjoint up. ??She has a rounded off??nail. ??Skin distally is pink warm and dry. ??Motion at the DIP is negligible.?? She appears to be afebrile. Assessment/Plan 1.??Lesion of bone of left hand??M89.9 The patient comes in today with a healing wound over the middle phalanx of her left index finger??as a result of a??bony prominence of unknown etiology??that came out during her??emergency room evaluation. ??It is??since gone on to heal completely.?? She does not??wish to do anything at this point that it is back to where it was prior to her injury. ??I counseled her that??we do not necessarily know what is causing this bone lesion. ??It could be an osteochondroma. ??It could be something else entirely.?? I counseled her that she could see a hand surgeon??for further evaluation??at this point. ??She would like to hold off and if this happens again she has agreed to see a hand specialist. Problem List/Past Medical History Ongoing Anti-nuclear factor [...] Never tobacco user Tobacco Use:. Diagnostic Results Diagnostic Study Interpretation: X-rays reviewed from [facility] emergency department??of her??left index finger shows a??calcific body at the volar aspect of the middle phalanx.?? Arthritic changes are noted. Electronically Signed on 08/03/22 03:35 PM GALILEO Gates Patient Care team information Care Team Personnel Name: NATAN ORTIZ, CLAY TOLBERT Position: No Access Member Role: Primary Care Physician Address: Address: [address] [address]- Care Team Related Persons Name: PEDRO LEMA Name: LAKESHIA FRITZ Name: JOSE FRITZ Address: Home [facility] [address] [place], [place] [id number] [facility]
== END 2022-12-15 14:16 | disposition home or self-care (01) ==
LOC: LBO 14:15
PROVIDERS: PCP Physician Assistant Medical; Visit Provider Nurse Practitioner Family
DX: R73.03 Prediabetes (principal); R63.4 Abnormal weight loss; E55.9 Vitamin D deficiency, unspecified
CPT/HCPCS: 36415; 82306

== ENCOUNTER 2022-12-25 09:48 | Emergency (ER) | payer MEDICARE, MEDICAID, SELFPAY ==
--- NOTE | 2022-12-25 09:45 | RT.EKG_ITS ---
APPROVED REPORT Exam: Resting ECG Reason for Exam: sob, weakness Patient Location: E HR:63 bpm ECG Measurements Heart Rate 63 AXIS MI [id number] P [id number] QRSd 125 QRS 65 QT 406 T -60 QTc 417 Conclusion Atrial fibrillation...? atrial activity Right bundle branch block...QRSd>120, terminal axis(90,270)
[2022-12-25 09:52] VITALS: BP 117/52; PULSE 62; RESP 18; TEMP 36.7; O2SAT 97
[2022-12-25 09:57] VITALS: BP 117/52; PULSE 64
[2022-12-25 10:00] VITALS: O2SAT 97
[2022-12-25 10:27] VITALS: RESP 16
[2022-12-25 10:29] LABS: Abs Immature Grans 0.04 10^3/uL (0.0-0.06); Absolute Basophil Count 0.02 10^3/uL (0.0-0.2); Absolute Eosinophil Count 0.05 10^3/uL (0.0-0.7); Absolute Lymphocyte Count 0.62 10^3/uL (1.2-3.4); Absolute Neutrophil Count 5.15 10^3/uL (1.2-6.7); Basophils % 0.3; Eosinophils % 0.7; HCT 41.4 % (36.0-46.0); HGB 13.1 g/dL (11.2-15.7); Immature Grans % 0.6; Lymphocytes % 9.3; MCH 31.4 pg (27.0-33.0); MCHC 31.6 % (32.0-36.0); MCV 99 fL (80-95); MPV 8.6 fL (8.0-11.0); Neutrophils % 77.1; Platelet Count 267 10^3/uL (130-400); RBC 4.17 10^6/uL (3.93-5.22); RDW 13.4 % (11.7-14.6); RDW-SD 49.3 fL; WBC 6.68 10^3/uL (4.4-10.8)
--- NOTE | 2022-12-25 10:42 | ED.GENADUL_ITS ---
Discharge Plan Disposition Patient Disposition: Home Condition: Stable Discharge Details Clinical Impression: Bilateral leg weakness, Dehydration, Diastolic CHF, Creatinine elevation Primary Care Provider: Raquel Martin ED Provider: Meño Mustafa Home Meds and New Rx's Prescriptions: Continued acetaminophen [Tylenol] 325 mg tablet 325 mg PO Q6H PRN mecobalamin (vitamin B12) 10,000 mcg recon soln 1,000 mcg subcut [id number] albuterol sulfate [Ventolin HFA] 90 mcg/actuation HFA aerosol inhaler 2 puff inhalation Q6H PRN digoxin [Digox] 125 mcg (0.125 mg) tablet 125 mcg PO DAILY potassium chloride 10 mEq capsule, extended release 10 meq PO DAILY lisinopril 2.5 mg tablet 5 mg PO DAILY albuterol sulfate 2.5 mg /3 mL (0.083 %) solution for nebulization 2.5 mg inhalation .Q 4-6H PRN tiotropium bromide [Spiriva with HandiHaler] 18 mcg capsule, w/inhalation device 18 mcg Inhalation DAILY Eliquis 5 mg tablet 5 mg PO BID Qty: 180 3RF metoprolol tartrate 25 mg tablet 12.5 mg PO BID Patient Comments: ordered by PCP RH furosemide 40 mg tablet 40 mg PO DAILY Qty: 90 3RF No Action triamcinolone acetonide 0.1 % cream 1 applic topical BID Discharge Instructions Instructions: Dehydration (ED), Fall Prevention for Older Adults (ED) Additional Instructions: Please maintain adequate oral hydration. Please contact your primary care physician to arrange follow-up. Call today. Please follow-up with your modeling analyst. Call today to arrange follow-up. Return to the ER immediately for any worsening or new concerning symptoms. Referrals: [facility] [Provider Group] Raquel Martin PA [Primary Care Provider] - Medical Decision Making 3200 --82-year-old female with multiple medical problems including peripheral vascular disease, COPD, hypertension, PMR, atrial fibrillation, cerebral aneurysm without rupture, diastolic heart failure, here with bilateral leg weakness that she has been experiencing over the past 3 weeks, worse over the past 2 days. Screening EKG was reviewed and interpreted by me: Please report, atrial fibrillation, rate controlled 63 bpm, right bundle branch block. Patient has strong pulses bilateral lower extremities, she is neurologically intact in her legs, no bowel or bladder dysfunction. Patient seemed to have good strength while lying in bed. Concern for potential claudication as she has a history of peripheral vascular disease versus electrolyte abnormality versus CHF. 1305 --labs reviewed and slight elevation of creatinine with elevated BUN, suspect prerenal secondary to mild dehydration. BNP is elevated at 6000, she has had elevated BNP in the past. We will give oral fluid rehydration. -- Chest x-ray was reviewed and interpreted by radiology:Increased markings throughout both lungs are again noted and there is reticular density in left upper lobe and less of the same in the right upper lobe.? No pleural effusions.? No pneumothorax.? I spoke with Dr. Ballard would be happy to see the patient in follow-up. I spoke with the patient's covering primary care physician, Cris Mathew, she will arrange for timely outpatient follow-up this week. Disposition decision was made weighing the risks and benefits of hospitalization versus outpatient treatment, the risk for further decompensation, and the patient's wishes. The patient was stable and requested discharge. Prior to discharge, my usual and customary return precautions were reviewed with the patient - this included follow-up instructions and reason to return to the emergency department if condition worsens, does not improve as expected, or other new concerns arise. HPI General Mode of arrival: ambulatory . Date/Time Provider Initiated Documentation: 12/25/22 10:01 . Limitations to Documentation: no limitations . Information obtained by: patient . HPI Narrative: 82-year-old female with multiple medical problems presents with chief complaint of weakness. Patient notes bilateral leg weakness ongoing for the past few weeks and worse over the past 2 days. Patient describes weakness as just feels fatigued and has trouble moving her legs. Patient denies associated pain. She does note some dyspnea on exertion. She denies associated chest pain. No abdominal pain. No back pain but does have some neck pain that is been chronic. Patient denies bowel or bladder dysfunction. No numbness or tingling. Related Data Home Medications Medication Instructions Recorded Confirmed acetaminophen 325 mg tablet 325 mg PO Q6H PRN 01/13/20 12/25/22 (Tylenol) albuterol sulfate 90 mcg/actuation 2 puff inhalation Q6H PRN 05/17/21 12/25/22 aerosol inhaler (Ventolin HFA) mecobalamin (vitamin B12) 10,000 1,000 mcg subcut [id number] 05/17/21 12/25/22 mcg solution for injection digoxin 125 mcg (0.125 mg) tablet 125 mcg PO DAILY 07/13/21 12/25/22 (Digox) potassium chloride 10 mEq 10 meq PO DAILY 07/13/21 12/25/22 capsule,extended release lisinopril 2.5 mg tablet 5 mg PO DAILY 11/29/21 12/25/22 albuterol sulfate 2.5 mg/3 mL 2.5 mg inhalation .Q 4-6H PRN 12/14/21 12/25/22 (0.083 %) solution for nebulization tiotropium bromide 18 mcg capsule 18 mcg inhalation DAILY 02/07/22 12/25/22 with inhalation device (Spiriva with HandiHaler) apixaban 5 mg tablet (Eliquis) 5 mg PO BID #180 tabs 04/14/22 12/25/22 triamcinolone acetonide 0.1 % 1 applic topical BID 05/08/22 12/25/22 topical cream metoprolol tartrate 25 mg tablet 12.5 mg PO BID 05/10/22 12/25/22 furosemide 40 mg tablet 40 mg PO DAILY #90 tabs 07/17/22 12/25/22 Previous Rx's Medication Instructions Recorded apixaban 5 mg tablet (Eliquis) 5 mg PO BID #180 tabs 04/14/22 furosemide 40 mg tablet 40 mg PO DAILY #90 tabs 07/17/22 Allergies Allergy/AdvReac Type Severity Reaction Status Date / Time pseudoephedrine HCl Allergy Intermediate Swelling/Ed Verified 12/25/22 10:01 [From [facility]] yuniel Sulfa (Sulfonamide Allergy itch/rash Verified 12/25/22 10:01 Antibiotics) erythromycin base AdvReac Intermediate GI upset Verified 12/25/22 10:01 codeine AdvReac hyper Verified 12/25/22 10:01 General Stated Complaint: SOB ADAM: 3 Review of Systems All systems reviewed & are unremarkable except as noted in HPI and below Constitutional Constitutional: Denies fever(s) Cardiovascular Cardiovascular: Denies chest pain PFSH All Active Problems (Updated 12/25/22 @ 14:03 by Meño Mustafa MD) Bilateral leg weakness (Acute) Dehydration (Acute) Diastolic CHF (Acute) Creatinine elevation (Acute) Raynauds disease (Acute) Lower extremity edema (Acute) Weight loss (Acute) ILD (interstitial lung disease) (Acute) Personal history of nicotine dependence (Acute) Abnormal chest x-ray (Acute) Pain, foot (Acute) Nail dystrophy (Acute) Corns and callosities (Acute) Diastolic heart failure (Acute) Dyspnea (Acute) Tachycardia (Acute) Pre-diabetes (Acute) PVD (peripheral vascular disease) (Chronic) Lumbar radiculopathy (Acute) Anxiety (Chronic) COPD (chronic obstructive pulmonary disease) (Chronic) Atrial fibrillation, chronic (Acute) HTN (hypertension) (Chronic) Claudication of left lower extremity (Chronic) Pulmonary emphysema (Chronic) PMR (polymyalgia rheumatica) (Chronic) Medical History B12 deficiency COVID-19 Dense breasts 2019. Category C. Normal mammogram. 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 + HR HPV beginning 2003. 2013 Pap Nl/HPV Neg 2014 Pap Nl/HPV + 2016 Pap Nl/HPV + ( Neg HPV 16 & 18) 2017 Pap Nl/HPV Neg 2020. Pap Nl/HPV Neg. Recommended stop screening paps. Hx of carpal tunnel syndrome R side Hx of chronic cholecystitis Limited range of motion of shoulder R sided. Surgical History H/O: pt. denies, pt. states one child was born vaginally History of cholecystectomy Hx laparoscopic cholecystectomy (~12/30/19) S/P cataract surgery S/P tubal ligation Social History Smoking/Tobacco Use Status: Former Tobacco Use Quit Date: 03/26/07 Tobacco: How many years used: 10 Smoking risk assessment performed?: Yes Alcohol Intake: current Alcohol Intake frequency: holidays/special occasions only Alcohol type: wine and hard liquor Drug use: Never Substance use type: does not use Details: alcohol: t-7 Household members: none and other Details: Lives alone at [place]. 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 GC - Bhargav 24, Naeem 20, Pavithra 21. Female Reproductive History Menstrual Menopause type: natural History History 6 Para Hx # Term Pregnancies 5 Multiple births Hx # Pregnancies Ectopic pregnancies AB induced Hx Number of Living Children AB spontaneous Exam Const General: cooperative and no acute distress HENMT Mouth: moist mucous membranes Eyes Conjunctivae: normal conjunctivae Sclera: normal sclerae Neck Neck: trachea midline and supple Resp Auscultation: clear to auscultation bilaterally, no rales, no rhonchi and no wheezes Cardio Rate: regular rate and not tachycardic Rhythm: abnormal rhythm irregularly irregular GI Palpation: soft, not firm, no guarding, no masses, not rigid and nontender Skin General skin exam: no rashes or lesions noted Neuro General: patient alert, patient awake, patient oriented x3 and tone normal Extrem General: no edema Right lower extremity: normal to inspection Left lower extremity: normal to inspection Psych Appearance: grossly normal Mental Status: mental status grossly normal Speech and Movement: speech and movement normal Course Vital Signs Vital signs: Vital Signs Temperature 36.7 C 12/25/22 09:52 Pulse 62 12/25/22 09:52 Respiratory Rate 18 12/25/22 09:52 Blood Pressure 117/52 L 12/25/22 09:52 Pulse Oximetry 97 12/25/22 09:52 Temperature 36.7 C 12/25/22 09:52 Temperature Source Skin 12/25/22 09:52 Pulse 64 12/25/22 09:57 Respiratory Rate 16 12/25/22 10:27 Respiratory Effort Non-Labored, Short of Breath 12/25/22 10:27 Respiratory Depth Normal 12/25/22 10:27 Respiratory Pattern Normal 12/25/22 10:27 Blood Pressure 117/52 L 12/25/22 09:57 Blood Pressure Mean 76 12/25/22 09:57 Pulse Oximetry 97 12/25/22 10:00 Oxygen Delivery Method Room Air 12/25/22 09:52 Oxygen Flow Rate 0 12/25/22 09:52 Pain Level 0 12/25/22 09:52 Lab/Test Results Lab/Test Results: Laboratory Tests Range/Units 12/25/22 10:24 WBC (4.4-10.8) 10^3/uL 6.68 RBC (3.93-5.22) 10^6/uL 4.17 Hgb (11.2-15.7) g/dL 13.1 Hct (36.0-46.0) % 41.4 MCV (80-95) fL 99 H MCH (27.0-33.0) pg 31.4 MCHC (32.0-36.0) % 31.6 L RDW (11.7-14.6) % 13.4 Plt Count (130-400) 10^3/uL 267 MPV (8.0-11.0) fL 8.6 Immature Gran % 0.6 Neutrophils % 77.1 Lymphocytes % 9.3 Monocytes % 12.0 Eosinophils % 0.7 Basophils % 0.3 Nucleated RBC % (0.0-0.3) % 0.0 Absolute Neutrophils (1.2-6.7) 10^3/uL 5.15 Absolute Lymphocytes (1.2-3.4) 10^3/uL 0.62 L Absolute Monocytes (0.1-0.8) 10^3/uL 0.80 Absolute Eosinophils (0.0-0.7) 10^3/uL 0.05 Absolute Basophils (0.0-0.2) 10^3/uL 0.02
[2022-12-25 10:59] LABS: ALT 27 U/L (14-59); AST 33 U/L (15-37); Albumin 2.8 g/dL (3.4-5.0); Alkaline Phosphatase 93 U/L (46-116); Anion Gap 5.8 mmol/L (3-11); BUN 38 mg/dL (7-18); Bilirubin, Total 0.7 mg/dL (0.2-1.0); CO2 30.2 mmol/L (21.0-32.0); CREATININE 1.7 mg/dL (0.55-1.02); Calcium 9.5 mg/dL (8.5-10.1); Chloride 102 mmol/L (98-107); Estimated GFR 30.13 (mL/min/1.73m2); Glucose 103 mg/dL (74-106); Magnesium 2.2 mg/dL (1.8-2.4); NT-proBNP 6216 pg/mL (<300); Sodium 138 mmol/L (136-145); Total Protein 6.6 g/dL (6.4-8.2); Troponin I 53 ng/L (<or=60)
[2022-12-25 11:13] LABS: Bilirubin Negative (Negative); Blood Negative (Negative); Clarity Clear (Clear); Glucose Negative (Negative); Ketones Negative (Negative); Leukocyte Esterase Trace (Negative); Nitrite Negative (Negative); Specific Gravity 1.015 (1.005-1.025); Urobilinogen 0.2 mg/dL (Up to 0.2); pH 5.5 (5-8)
[2022-12-25 11:22] LABS: Bacteria Rare HPF (Negative); C & S Indicated? Yes; Crystals Negative HPF (Negative); Epithelial Cells Few HPF (Negative); Mucus Trace (Negative); RBC 0-2 HPF (0-2)
[2022-12-25 11:23] LABS: Casts 3-5 Hyaline LPF (Negative)
--- NOTE | 2022-12-25 13:30 | DI.RAD_ITS ---
Exam(s) XR PORTABLE CHEST AP EXAM: XR PORTABLE CHEST AP CLINICAL HISTORY: shortness of breath. TECHNIQUE: 2D digital imaging was performed. COMPARISON: CR XR CHEST 2V PA LATERAL from 12/12/[address] CHEST HIGH RESOLUTION from 06/01/2022 FINDINGS: Single AP portable view. Heart size is upper normal. The mediastinum is not widened. Increased markings throughout both lungs are again noted and there is reticular density in left upper lobe and less of the same in the right upper lobe. No pleural effusions. No pneumothorax. IMPRESSION: Increased lung markings bilaterally and again most prominent in the left upper lobe with the reticula r markings again noted. DATA REPOSITORY: RADIATION DOSE DELIVERED:
--- NOTE | 2022-12-27 08:44 | NUR.NOTE ---
Accessed pt chart to determine antibiotic on discharge. Nursing Note:
== END 2022-12-25 14:19 | disposition home or self-care (01) ==
PROVIDERS: Emergency Provider Student in an Organized Health Care Education/Training Program; PCP Physician Assistant Medical
DX: R29.898 Other symptoms and signs involving the musculoskeletal system (principal); E86.0 Dehydration; I50.30 Unspecified diastolic (congestive) heart failure; R79.89 Other specified abnormal findings of blood chemistry
CPT/HCPCS: 80053; 93005; 99283; 71045; 81003; 81015; 83735; 83880; 84484; 85025; 87086; 93010; 99284

== ENCOUNTER → 2022-12-28 11:18 | Outpatient (BNVA) | payer MEDICARE, MEDICAID, SELFPAY | PROVIDERS: PCP Physician Assistant Medical; Referring Provider Physician Assistant Medical; Visit Provider Internal Medicine Cardiovascular Disease | DX: J84.9 Interstitial pulmonary disease, unspecified (principal); I50.30 Unspecified diastolic (congestive) heart failure; I48.20 Chronic atrial fibrillation, unspecified; Z79.01 Long term (current) use of anticoagulants; I12.9 Hypertensive chronic kidney disease with stage 1 through stage 4 chronic kidney disease, or unspecified chronic kidney disease; J44.9 Chronic obstructive pulmonary disease, unspecified | CPT/HCPCS: 99214 ==

== ENCOUNTER 2022-12-29 15:58 | Outpatient (REF) | payer MEDICARE, MEDICAID, SELFPAY ==
[2022-12-29 19:28] LABS: Anion Gap 7.7 mmol/L (3-11); BUN 29 mg/dL (7-18); CO2 27.3 mmol/L (21.0-32.0); CREATININE 1.5 mg/dL (0.55-1.02); Calcium 9.3 mg/dL (8.5-10.1); Chloride 101 mmol/L (98-107); Estimated GFR 35.01 (mL/min/1.73m2); Glucose 84 mg/dL (74-106); Potassium 4.7 mmol/L (3.5-5.1); Sodium 136 mmol/L (136-145)
[2022-12-29 19:35] LABS: Hemoglobin A1C 5.9 % (<5.7)
== END 2022-12-29 15:59 | disposition home or self-care (01) ==
LOC: NCHCN 15:58
PROVIDERS: PCP Physician Assistant Medical; Visit Provider Physician Assistant Medical
DX: R79.89 Other specified abnormal findings of blood chemistry (principal); R73.03 Prediabetes
CPT/HCPCS: 80048; 83036

== ENCOUNTER 2022-12-31 14:46 | Emergency (ER) | payer MEDICARE, MEDICAID, SELFPAY ==
[2022-12-31] VITALS (38 sets, daily range): BP systolic 88–159; BP diastolic 26–68; PULSE 55–85; RESP 15–32; TEMP 36.7–36.8; O2SAT 78–100
--- NOTE | 2022-12-31 15:00 | RT.EKG_ITS ---
APPROVED REPORT Exam: Resting ECG Reason for Exam: Weakness, shortness of breath Patient Location: E HR:63 bpm ECG Measurements Heart Rate 63 AXIS WV [id number] P [id number] QRSd 128 QRS 56 QT 402 T -53 QTc 413 Conclusion Atrial fibrillation...? atrial activity Right bundle branch block...QRSd>120, terminal axis(90,270) narrow complex, irregular rhythm, normal axis, partial RBBB; consider second degree block type 1 v a fib
--- NOTE | 2022-12-31 15:15 | W.ED.GENAD ---
Discharge Plan Disposition Patient Disposition: Home Discharge Details Clinical Impression: Bilateral leg weakness, PVD (peripheral vascular disease), Lumbar stenosis, Acute hypotension Primary Care Provider: Raquel Martin ED Provider: Aleja Soni Home Meds and New Rx's Prescriptions: New simvastatin 20 mg tablet 20 mg PO DAILY Qty: 14 0RF Continued acetaminophen [Tylenol] 325 mg tablet 325 mg PO Q6H PRN triamcinolone acetonide 0.1 % cream 1 applic topical BID mecobalamin (vitamin B12) 10,000 mcg recon soln 1,000 mcg subcut [id number] albuterol sulfate [Ventolin HFA] 90 mcg/actuation HFA aerosol inhaler 2 puff inhalation Q6H PRN digoxin [Digox] 125 mcg (0.125 mg) tablet 125 mcg PO DAILY potassium chloride 10 mEq capsule, extended release 10 meq PO DAILY albuterol sulfate 2.5 mg /3 mL (0.083 %) solution for nebulization 2.5 mg inhalation .Q 4-6H PRN tiotropium bromide [Spiriva with HandiHaler] 18 mcg capsule, w/inhalation device 18 mcg Inhalation DAILY Eliquis 5 mg tablet 5 mg PO BID Qty: 180 3RF metoprolol tartrate 25 mg tablet 12.5 mg PO BID Patient Comments: ordered by PCP RH furosemide 40 mg tablet 40 mg PO DAILY Qty: 90 3RF Discontinued lisinopril 2.5 mg tablet 5 mg PO DAILY Discharge Instructions Additional Instructions: Please follow-up with the vascular surgeon at [facility], we will place a referral, Please follow-up with your primary care physician for reassessment, your blood pressure was slightly low on initial presentation but you have been normotensive throughout your evaluation, I recommend going from sitting to standing very slowly and giving her body a chance to ask me Stop taking your lisinopril temporarily and start taking the simvastatin Recommend recheck with your primary care physician on Sunday, referral has been placed Use your walker with ambulation Referrals: Raquel Martin PA [Primary Care Provider] - Discharge Data Discharge Date/Time-TO BE ENTERED AT DEPARTURE: 12/31/22 19:39 Medical Decision Making <Macario Renteria NP - Last Filed: 01/01/23 15:50> Patient presenting to the emergency department due to home health referral due to low blood pressure. She states over the past month she has had generalized weakness in her lower legs, weight loss, not eating well, and now having low blood pressure. Patient denies any fever chills, urinary symptoms, does state some shortness of breath with activity only but denies any new swelling to her lower legs. Patient has history of lower extremity claudication, hypertension, A-fib, COPD, CHF with chronic back pain. Physical exam is overall noncontributory beyond noted lower extremity weakness that is nonfocal. We will plan on checking labs urinalysis and get EKG due to patient's medical history. Review of labs show noncontributory CBC, CMP does show significant renal dysfunction with BUN of 27 creatinine of 1.7 and a GFR 30. Initial troponin is 55 and BNP is more elevated than labs done a couple days ago at 6789. Due to this point fluids were stopped. Still pending urinalysis Patient signed out to GALILEO Moeller. Patient pending further work-up and disposition. Lab Data Lab results reviewed: Yes I reviewed the patient's lab results. <GALILEO Moeller - Last Filed: 12/31/22 21:37> Patient presenting to the emergency department due to home health referral due to low blood pressure. She states over the past month she has had generalized weakness in her lower legs, weight loss, not eating well, and now having low blood pressure. Patient denies any fever chills, urinary symptoms, does state some shortness of breath with activity only but denies any new swelling to her lower legs. Patient has history of lower extremity claudication, hypertension, A-fib, COPD, CHF with chronic back pain. Physical exam is overall noncontributory beyond noted lower extremity weakness that is nonfocal. We will plan on checking labs urinalysis and get EKG due to patient's medical history. Review of labs show noncontributory CBC, CMP does show significant renal dysfunction with BUN of 27 creatinine of 1.7 and a GFR 30. Initial troponin is 55 and BNP is more elevated than labs done a couple days ago at 6789. Due to this point fluids were stopped. Still pending urinalysis Patient signed out to GALILEO Moeller. Patient pending further work-up and disposition. Patient stable blood pressure, orthostatics were within normal limits, a repeated orthostatics as the pulse pressure was significantly wide and I thought an accurate, replacement And orthostatics were fine in fact going from sitting to standing she increased by 5 points She is asymptomatic, she was able to ambulate to the bathroom in the emergency department with a walker I will take patient's lisinopril off her list that she is lost approximately 60 pounds in the past 2 months and is wondering if she actually needs antihypertensive meds at this point, she would like wishes to go home, she is alert and oriented, she does not wish to consider skilled placement but would like to talk to her doctor more Of note, patient had diminished pulses to bilateral lower extremities but were only obtained with dopplerable pulses were very difficult to assess She also had some cyanosis to her fingers so I did order CTA chest abdomen and pelvis which showed widespread vasculopathy Case was discussed with Dr. Negron, vascular surgeon at [facility] and recommendation for outpatient reassessment, ABIs Patient feels comfortable with discharge home at this time, she is aware that she has significantly diminished flow to bilateral lower legs and this may be causing some of her symptoms, she also has pretty significant stenosis to her lumbar spine and this likely is contributing At this time she does have pulses that are able to be obtained via Doppler and I think she stable for discharge home at this time I do not see evidence of acute ischemia She is given the threshold to return should she have new or worsening complaints HPI <Macario Renteria NP - Last Filed: 01/01/23 15:50> General Mode of arrival: ambulatory. Date/Time Provider Initiated Documentation: 12/31/22 14:57. Limitations to Documentation: no limitations. Information obtained by: patient and RN notes reviewed. History of Present Illness 82 year old F presents to the emergency department with the chief complaint of Generalized lower extremity weakness, low blood pressure, described as mild, Patient started experiencing this month(s) (1) and it has been constant. No relieving factors improve symptom(s), No exacerbating factors reported . Patient notes no other symptoms.. Patient did receive the following treatments prior to arrival, none Related Data Home Medications Medication Instructions Recorded Confirmed acetaminophen 325 mg tablet 325 mg PO Q6H PRN 01/13/20 12/28/22 (Tylenol) albuterol sulfate 90 mcg/actuation 2 puff inhalation Q6H PRN 05/17/21 12/28/22 aerosol inhaler (Ventolin HFA) mecobalamin (vitamin B12) 10,000 1,000 mcg subcut [id number] 05/17/21 12/28/22 mcg solution for injection digoxin 125 mcg (0.125 mg) tablet 125 mcg PO DAILY 07/13/21 12/28/22 (Digox) potassium chloride 10 mEq 10 meq PO DAILY 07/13/21 12/28/22 capsule,extended release albuterol sulfate 2.5 mg/3 mL 2.5 mg inhalation .Q 4-6H PRN 12/14/21 12/28/22 (0.083 %) solution for nebulization tiotropium bromide 18 mcg capsule 18 mcg inhalation DAILY 02/07/22 12/28/22 with inhalation device (Spiriva with HandiHaler) apixaban 5 mg tablet (Eliquis) 5 mg PO BID #180 tabs 04/14/22 12/28/22 triamcinolone acetonide 0.1 % 1 applic topical BID 05/08/22 12/28/22 topical cream metoprolol tartrate 25 mg tablet 12.5 mg PO BID 05/10/22 12/28/22 furosemide 40 mg tablet 40 mg PO DAILY #90 tabs 07/17/22 12/28/22 simvastatin 20 mg tablet 20 mg PO DAILY #14 tabs 12/31/22 Previous Rx's Medication Instructions Recorded apixaban 5 mg tablet (Eliquis) 5 mg PO BID #180 tabs 04/14/22 furosemide 40 mg tablet 40 mg PO DAILY #90 tabs 07/17/22 simvastatin 20 mg tablet 20 mg PO DAILY #14 tabs 12/31/22 Allergies Allergy/AdvReac Type Severity Reaction Status Date / Time pseudoephedrine HCl Allergy Intermediate Swelling/Ed Verified 12/28/22 11:52 [From Sudafed] yuniel Sulfa (Sulfonamide Allergy itch/rash Verified 12/28/22 11:52 Antibiotics) erythromycin base AdvReac Intermediate GI upset Verified 12/28/22 11:52 codeine AdvReac hyper Verified 12/28/22 11:52 General Stated Complaint: GenMedical ADAM: 3 Review of Systems <Macario Renteria NP - Last Filed: 01/01/23 15:50> Constitutional Constitutional: Denies chills, Denies fever(s), Denies headache(s), Reports malaise, Reports poor appetite, Reports weakness and Reports weight loss ENT Ears, Nose, Mouth, and Throat: Denies dizziness and Denies headache(s) Cardiovascular Cardiovascular: Denies chest pain and Reports dyspnea on exertion Respiratory Respiratory: Denies cough and Reports dyspnea on exertion Gastrointestinal Gastrointestinal: Denies abdominal pain, Denies diarrhea, Denies nausea and Denies vomiting Genitourinary Genitourinary: Denies dysuria, Denies urinary incontinence and Denies urinary urgency Musculoskeletal Musculoskeletal: Denies abnormal gait, Denies arthralgias, Denies joint swelling and Reports muscle weakness Integumentary/Breasts Skin/Breast: Denies erythema and Denies rash Neurologic Neurologic: Denies abnormal gait, Denies behavioral changes, Denies dizziness, Denies headache(s) and Reports weakness Psychiatric Psychiatric: Denies behavioral changes PFSH <Macario Renteria NP - Last Filed: 01/01/23 15:50> All Active Problems (Updated 12/31/22 @ 19:24 by GALILEO Moeller) Lumbar stenosis (Acute) Acute hypotension (Acute) Bilateral leg weakness (Acute) Dehydration (Acute) Diastolic CHF (Acute) Creatinine elevation (Acute) Raynauds disease (Acute) Lower extremity edema (Acute) Weight loss (Acute) ILD (interstitial lung disease) (Acute) Personal history of nicotine dependence (Acute) Abnormal chest x-ray (Acute) Pain, foot (Acute) Nail dystrophy (Acute) Corns and callosities (Acute) Diastolic heart failure (Acute) Dyspnea (Acute) Tachycardia (Acute) Pre-diabetes (Acute) PVD (peripheral vascular disease) (Chronic) Lumbar radiculopathy (Acute) Anxiety (Chronic) COPD (chronic obstructive pulmonary disease) (Chronic) Atrial fibrillation, chronic (Acute) HTN (hypertension) (Chronic) Claudication of left lower extremity (Chronic) Pulmonary emphysema (Chronic) PMR (polymyalgia rheumatica) (Chronic) Medical History B12 deficiency COVID-19 Dense breasts 2019. Category C. Normal mammogram. 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 + HR HPV beginning 2003. 2014 Pap Nl/HPV Neg 2015 Pap Nl/HPV + 2016 Pap Nl/HPV + ( Neg HPV 16 & 18) 2017 Pap Nl/HPV Neg 2020. Pap Nl/HPV Neg. Recommended stop screening paps. Hx of carpal tunnel syndrome R side Hx of chronic cholecystitis Limited range of motion of shoulder R sided. Surgical History H/O: pt. denies, pt. states one child was born vaginally History of cholecystectomy Hx laparoscopic cholecystectomy (~12/30/19) S/P cataract surgery S/P tubal ligation Social History Smoking/Tobacco Use Status: Former Tobacco Use Quit Date: 03/26/07 Tobacco: How many years used: 10 Smoking risk assessment performed?: Yes Alcohol Intake: current Alcohol Intake frequency: holidays/special occasions only Alcohol type: wine and hard liquor Drug use: Never Substance use type: does not use Details: alcohol: t-7 Household members: none and other Details: Lives alone at [employer]. 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 - Bhargav 24, Naeem 20, Pavithra 21. Female Reproductive History Menstrual Menopause type: natural History History 6 Para Hx # Term Pregnancies 5 Multiple births Hx # Pregnancies Ectopic pregnancies AB induced Hx Number of Living Children AB spontaneous Exam <Macario Renteria NP - Last Filed: 01/01/23 15:50> Const General: cooperative, no acute distress and not ill appearing Orientation: alert, awake and oriented x3 HENMT Mouth: moist mucous membranes Resp Effort & Inspection: normal respiratory effort, able to speak in complete sentences and no respiratory distress Auscultation: clear to auscultation bilaterally Cardio Rate: regular rate Rhythm: regular rhythm Heart Sounds: S1 normal and S2 normal GI Palpation: soft and nontender Auscultation: normal bowel sounds Skin General skin exam: no rashes or lesions noted Neuro General: patient alert, patient awake, patient oriented x3, moves all extremities, no focal motor deficits and not confused Cognition: normal cognition Speech: speech normal Motor: muscle tone normal throughout and strength not 5/5 throughout (Lower extremity weakness nonfocal) Sensory Exam: no sensory deficits noted Extrem General: normal exam except as noted Course <Macario Renteria NP - Last Filed: 01/01/23 15:50> Vital Signs Vital signs: Vital Signs Temperature 36.7 C 12/31/22 14:51 Pulse 68 12/31/22 14:51 Respiratory Rate 18 12/31/22 14:51 Blood Pressure 90/54 L 12/31/22 14:51 Pulse Oximetry 100 12/31/22 14:51 Temperature 36.7 C 12/31/22 14:51 Temperature Source Temporal Artery Scan 12/31/22 14:51 Pulse 68 12/31/22 14:51 Respiratory Rate 18 12/31/22 14:51 Blood Pressure 90/54 L 12/31/22 14:51 Blood Pressure Position Supine 12/31/22 14:51 Pulse Oximetry 100 12/31/22 14:51 Oxygen Delivery Method Room Air 12/31/22 14:51 Oxygen Flow Rate 0 12/31/22 14:51 Sign Out <Macario Renteria NP - Last Filed: 01/01/23 15:50> Sign Out Data: Sign Out Comment: Patient signed out pending completion of work-up for generalized weakness and hypotension. At time of signout patient remains hypotensive but no altered mental status and otherwise states nonspecific nonfocal symptoms. Last updated by Macario Renteria NP at 12/31/22 15:53
[2022-12-31 15:19] LABS: Abs Immature Grans 0.04 10^3/uL (0.0-0.06); Absolute Basophil Count 0.03 10^3/uL (0.0-0.2); Absolute Eosinophil Count 0.06 10^3/uL (0.0-0.7); Absolute Lymphocyte Count 0.72 10^3/uL (1.2-3.4); Absolute Monocyte Count 0.65 10^3/uL (0.1-0.8); Basophils % 0.5; HCT 43.1 % (36.0-46.0); HGB 13.2 g/dL (11.2-15.7); Immature Grans % 0.6; Lymphocytes % 11.6; MCH 30.4 pg (27.0-33.0); MCHC 30.6 % (32.0-36.0); MCV 99 fL (80-95); MPV 8.7 fL (8.0-11.0); Monocytes % 10.5; Neutrophils % 75.8; Platelet Count 261 10^3/uL (130-400); RBC 4.34 10^6/uL (3.93-5.22); RDW 13.7 % (11.7-14.6); RDW-SD 49.9 fL
[2022-12-31] MEDS: Normal Saline 250 ML 500 ML IV (15:27)
[2022-12-31 15:41] LABS: ALT 23 U/L (14-59); AST 34 U/L (15-37); Albumin 2.8 g/dL (3.4-5.0); Alkaline Phosphatase 104 U/L (46-116); Anion Gap 7.6 mmol/L (3-11); BUN 27 mg/dL (7-18); Bilirubin, Total 0.6 mg/dL (0.2-1.0); CO2 27.4 mmol/L (21.0-32.0); CREATININE 1.7 mg/dL (0.55-1.02); Calcium 9.3 mg/dL (8.5-10.1); Chloride 101 mmol/L (98-107); Estimated GFR 30.13 (mL/min/1.73m2); Glucose 130 mg/dL (74-106); NT-proBNP 6789 pg/mL (<300); Potassium 4.3 mmol/L (3.5-5.1); Sodium 136 mmol/L (136-145); Total Protein 6.9 g/dL (6.4-8.2); Troponin I 55 ng/L (<or=60)
--- NOTE | 2022-12-31 16:10 | DI.CT_ITS ---
Exam(s) CT THORACIC LUMBAR SPINE WO CT THORAX ABD/PEL CTA EXAM: CT THORAX ABD/PEL CTA CLINICAL HISTORY: shortness of breath, diminished pulses, hypotensio. TECHNIQUE: Imaging Protocol: Axial CT angiography was performed with multi-slice acquisition and mu lti-planar and/or 3D reconstructions. Images of the thoracic and lumbar spine reconstructed from the chest abdomen pelvic CT using bone alg orithm. CONTRAST MATERIAL: Intravenous: Omnipaque 350 Contrast volume:60 ml COMPARISON: CT CT ABDOMEN PELVIS W from 05/01/[address] CHEST HIGH RESOLUTION from 06/01/[address] THORACIC LUMBAR SPINE WO from 12/31/2022 FINDINGS: CHEST: Pulmonary Arteries: No evidence of filling defects to suggest pulmonary emboli. Tracheobronchial tree: No bronchiectasis or mucus plugging. Mediastinum and Fany: No dominant adenopathy or fluid collection. Pulmonary parenchyma: Diffuse fibrotic changes. Bilateral chronic nodules. Calcified granulomas. N o consolidation or dominant measurable mass. Pleura: Tiny bilateral pleural effusions.. No pneumothorax. Heart: Biatrial enlargement. [id number] coronary artery calcifications are seen. Aorta: Thoracic aorta non-dilated. Moderate calcification. Tubes, Catheters, and Lines: None. Thoracic spine CT: Mild scoliosis. Degenerative disc changes. Bones appear osteopenic. No compress ion fracture. No suspicious bony lesion. ABDOMEN and PELVIS: Liver: Hepatic steatosis. Normal density. No suspicious measurable mass. Portal, Superior Mesenteric, and Splenic Veins: Unremarkable. Gallbladder and Biliary Tract: Status post cholecystectomy. No radiodense calculus. No biliary dilat ation. Pancreas: Normal density, no abnormal calcifications or inflammatory process. Spleen: Normal. Adrenals: No masses seen. Kidneys: Normal size, contour and axis. No radiodense stones. No obstructive uropathy. No masses seen . Vasculature: Abdominal aorta non-dilated. Atherosclerotic changes. Mild stenosis origin celiac ar jaki. Severe stenosis proximal superior mesenteric artery. Irregular calcification along the more d istal SMA with areas of oowl-nd-tigcyanh stenosis. Calcific plaque at the origins of both renal kori matthew causing severe stenosis. Right common iliac artery shows scattered calcific plaque with mild st enosis. The right common femoral artery shows heavy calcification with severe stenosis. The left co mmon iliac artery shows heavy calcific plaque with severe stenosis approximately 70 percent. Left co mmon femoral artery shows moderate stenosis. Bowel: No obstruction or bowel wall thickening. Appendix is unremarkable. Peritoneal Cavity: No ascites, collection or mesenteric inflammatory response. Lymph Nodes: Small calcified lymph nodes consistent with prior granulomatous infection. Soft Tissues: Unremarkable. Bones: No spine or pelvic fracture. No lytic or blastic lesion. Bladder: Symmetric distention, no gross wall thickening. Reproductive Organs: Unremarkable as visualized. Lymph Nodes: Within normal limits. Lumbar spine CT: No evidence of compression fracture. Severe narrowing of the L5-S1 disc space. Main disc spaces are maintained. None no spondylolysis or spondylolisthesis. IMPRESSION: 1. No evidence of pulmonary embolism. No evidence of aortic dissection or aneurysm. Chronic fibrotic changes of the lungs. 2. No acute abdominal or pelvic process. 3. Severe atherosclerotic changes. Severe bilateral renal artery stenosis. Severe stenosis origin s uperior mesenteric artery. Severe stenosis right common femoral artery. Severe stenosis left common iliac artery. RADIATION DOSE DELIVERED: 1391.29 mGy.cm Total DLP DATA REPOSITORY: All CT scans at this facility are submitted to the National Radiology Data Registry (NRDR) Dose Index Registry (DIR) with the [employer] (ACR). RADIATION OPTIMIZATION: All CT scans at this facility use at least one of these dose optimization te chniques: automated exposure control; mA and/or kV adjustment per patient size (includes targeted exa ms where dose is matched to clinical indication); or iterative reconstruction.
[2022-12-31] MEDS: Normal Saline - Diluent 50 ML VIAL IJ (16:22)
[2022-12-31] MEDS: Omnipaque 350 MG/ML 100 ML BTL IJ (16:22)
[2022-12-31] MEDS: Normal Saline Flush 10 ML SYR IVP (16:23)
[2022-12-31] MEDS: Furosemide 40 MG/4 ML VIAL IVP (16:23)
--- NOTE | 2022-12-31 17:08 | DI.VRAD_ITS ---
Addendum created by Jarad Rodríguez MD on 12/31/2022 5:11:16 PM EDT: Minor simple appearing posteriorly layering bilateral pleural effusions. Initial report created on 12/31/2022 5:08:26 PM EDT: PROCEDURE INFORMATION: Exam: CTA Chest With Contrast CTA Abdomen and Pelvis With Contrast Exam date and time: 12/31/2022 4:28 PM Age: 82 years old Clinical indication: Patient HX: Shortness of breath, diminished pulses, hypotension TECHNIQUE: Imaging protocol: Computed tomographic angiography of the chest with contrast. Exam focused on the arteries. Computed tomographic angiography of the abdomen and pelvis with contrast. Exam focused on the arteries. 3D rendering (Not supervised by radiologist): MIP and/or 3D reconstructed images were created by the technologist. COMPARISON: CT CHEST HIGH RESOLUTION 06/01/2022 11:13 AM FINDINGS: VASCULATURE: Great vessels off aortic arch: Left subclavian artery with mild proximal atherosclerotic calcium and mild stenosis. Right subclavian artery is patent with proximal atherosclerotic calcium and moderate stenosis. Pulmonary arteries: Normal. No pulmonary emboli. Aorta: Thoracic aorta with atherosclerotic calcium. No dissection. Ascending aorta without bandar aneurysm. Maximal diameter 3.1 cm. Abdominal aortic atherosclerotic calcium. No aneurysm. No aortic stenosis. Celiac trunk and mesenteric arteries: Celiac artery atherosclerotic calcium at the origin with mild stenotic changes. Superior mesenteric artery origin atherosclerotic calcium with severe stenosis at greater than 90% diameter. There is atherosclerotic calcium of the more distal branches of the SMA with multiple areas of [id number] stenosis. Renal arteries: Right renal artery origin atherosclerotic calcium with severe stenosis at greater than 90% diameter. Left renal artery origin atherosclerotic calcium with severe stenosis at greater than 90%.. Right iliac arteries: Right common iliac artery atherosclerotic calcium and mild stenosis at 30% diameter. Right external iliac artery atherosclerotic calcium with mild stenotic changes. Right common femoral artery atherosclerotic calcium with severe stenosis at greater than 90% diameter. Left iliac arteries: Left common iliac artery atherosclerotic calcium with severe stenosis at 70% diameter. Left common femoral artery moderate stenosis at 40% diameter. CHEST: Lungs: Severe emphysematous lung disease. Moderate bronchiectasis consistent with COPD. Areas of lung scarring. Scattered minor foci of fibrosis. No suspicious focal lung lesions. Scattered bilateral granulomatous calcifications. Pleural spaces: No pleural effusion. Heart: Mild cardiac enlargement. No pericardial effusion. Moderate coronary artery atherosclerotic calcium. ABDOMEN AND PELVIS: Liver: Diffuse mild fatty liver change. Gallbladder and bile ducts: Patient has had a previous cholecystectomy. There is no biliary dilatation. There are no ductal stones visible. . Pancreas: The pancreas is normal in contour and attenuation. Spleen: Spleen is normal in size and contour Adrenal glands: The adrenal glands are normal in size and contour bilaterally. Kidneys and ureters: The kidneys bilaterally are unremarkable. Normal attenutation. No hydronephrosis. No calculi. Stomach and bowel: Gastric morphology is unremarkable. No edema. No gastric outlet obstruction. Small sliding hiatal hernia without acute features.Small bowel loops are normal in course and caliber. There is no mucosal edema or bowel wall thickening. No obstructive features.The colon contains formed fecal material. There is no bowel wall thickening. No inflammatory features. No obstruction. Appendix: Non inflamed appendix on series 5: Images 91 and 90. Intraperitoneal space: No free fluid. No free air. Urinary bladder: Urinary bladder is unremarkable in appearance. No wall thickening. No intravesicular calculi. No intravesicular gas. Reproductive: The uterus and adnexa are unremarkable in appearance. There are no dominant adnexal cysts or masslike features. There are no inflammatory features. No uterine mass evident. Lymph nodes: Scattered subcentimeter mediastinal lymph nodes. Some calcium within these lymph nodes consistent with old granulomatous change. Calcified right hilar granulomatous lymph nodes. No pathologic appearing abdominal, retroperitoneal, or pelvic nodes.. Bones/joints: Thoracolumbar spine degenerative change. No compression fractures. No acute findings. Soft tissues: Chest wall soft tissues are unremarkable. IMPRESSION: 1. Emphysema/COPD and scattered areas of mild pulmonary fibrosis. Granulomatous calcifications of the lungs. No acute infiltrates or edema. 2. Moderate coronary artery atherosclerotic calcium. 3. Thoracic aorta with atherosclerosis. No aneurysm or dissection. Bilateral subclavian arteries with atherosclerotic change. Moderate right subclavian artery non osteal stenosis. 4. Bilateral severe renal artery stenosis. 5. Superior mesenteric artery origin severe stenosis. 6. Right common femoral artery severe stenosis. 7. Left common iliac artery severe stenosis. 8. Degenerative thoracolumbar spine change. 9. Fatty liver. 10. Previous cholecystectomy. Dictated and Authenticated by: Jarad Rodríguez MD. Ordering:SANDRA Masterson MD
--- NOTE | 2022-12-31 17:16 | DI.VRAD_ITS ---
PROCEDURE INFORMATION: Exam: CT Thoracic Spine Without Contrast Exam date and time: 12/31/2022 4:28 PM Age: 82 years old Clinical indication: Other: Pain back TECHNIQUE: Imaging protocol: Computed tomography of the thoracic spine without contrast. Radiation optimization: All CT scans at this facility use at least one of these dose optimization techniques: automated exposure control; mA and/or kV adjustment per patient size (includes targeted exams where dose is matched to clinical indication); or iterative reconstruction. COMPARISON: CT CHEST HIGH RESOLUTION 06/01/2022 11:13 AM FINDINGS: Bones/joints: Multilevel degenerative disc and facet disease of [id number] severity. Osteopenia. No compression fractures. No lytic or destructive bone lesions. No features to suggest neoplastic involvement of bone. Soft tissues: Paravertebral soft tissues are unremarkable. Pleural spaces: Small bilateral pleural effusion. IMPRESSION: 1. Degenerative thoracic spine changes. 2. No compression fractures or neoplastic features. 3. No thoracic level significant spinal stenosis. 4. Small bilateral pleural effusions. PROCEDURE INFORMATION: Exam: CT Lumbar Spine Without Contrast Exam date and time: 12/31/2022 4:28 PM Age: 82 years old Clinical indication: Other: Pain back TECHNIQUE: Imaging protocol: Computed tomography of the lumbar spine without contrast. Radiation optimization: All CT scans at this facility use at least one of these dose optimization techniques: automated exposure control; mA and/or kV adjustment per patient size (includes targeted exams where dose is matched to clinical indication); or iterative reconstruction. COMPARISON: CT ABDOMEN PELVIS W 05/01/2020 10:03 AM FINDINGS: Bones/joints: Osteopenia. No compression fractures or suspicious focal bone lesions. Severe degenerative disc space narrowing at L5-S1. Lltg-vx-[id number] facet arthropathy at L5-S1 bilaterally. No malalignment. There is a broad-based posterior disc bulge at L3-L4 measuring 4-5 mm. There is severe ligamentum flavum hypertrophy. There is severe spinal stenosis at this level. There is moderate facet arthropathy. L4-L5 broad-based posterior disc bulge measuring 6 mm in greatest dimension. Severe ligamentum flavum hypertrophy. Moderate to severe facet arthropathy. Severe spinal stenosis. No foraminal stenosis. L2-L3 moderate spinal stenosis with 4 mm broad-based posterior disc bulge and moderate ligamentum flavum hypertrophy. Moderate to severe facet arthropathy. No foraminal stenosis. Soft tissues: Paravertebral soft tissues are unremarkable. IMPRESSION: 1. Osteopenia. 2. No compression fractures or neoplastic features. 3. Multilevel degenerative changes. 4. Severe spinal stenosis at L3-L4 and L4-L5. Moderate spinal stenosis at L2-L3. Dictated and Authenticated by: Jarad Rodríguez MD. Ordering:SANDRA Masterson MD
[2022-12-31 17:20] LABS: Digoxin 1.88 ng/mL (0.90-2.00)
[2022-12-31 17:26] LABS: Bilirubin Negative (Negative); Blood Negative (Negative); Clarity Clear (Clear); Glucose Negative (Negative); Ketones Negative (Negative); Leukocyte Esterase Trace (Negative); Nitrite Negative (Negative); Specific Gravity <= 1.005 (1.005-1.025); Urobilinogen 0.2 mg/dL (Up to 0.2); pH 5.5 (5-8)
[2022-12-31 17:32] LABS: Bacteria Few HPF (Negative); C & S Indicated? Yes; Casts Negative LPF (Negative); Crystals Negative HPF (Negative); Epithelial Cells Few HPF (Negative); Mucus Negative (Negative); RBC 0-2 HPF (0-2)
--- NOTE | 2022-12-31 19:27 | NUR.NOTE ---
Referral faxed to [facility] (Raquel Martin) to f/u 01/02/23 and copy to Care Management for [facility] [place] [facility] [place] [facility] 1[place]2 [place] for Vasculopathy.Nursing Note: //
--- NOTE | 2023-01-01 07:55 | NUR.NOTE ---
Accessed pt chart. Patient cannot find her copy at home and would like another copy. Copy printed and will be picked up. Nursing Note:
--- NOTE | 2023-01-02 10:00 | NUR.NOTE ---
Accessed pt chart to determine whether or not pt was put on antibiotic on discharge. Nursing Note:
== END 2022-12-31 19:39 | disposition home or self-care (01) ==
PROVIDERS: Nurse Practitioner Family; Emergency Provider Physician Assistant; PCP Physician Assistant Medical
DX: M48.061 Spinal stenosis, lumbar region without neurogenic claudication (principal); R29.898 Other symptoms and signs involving the musculoskeletal system; I73.9 Peripheral vascular disease, unspecified
CPT/HCPCS: 71275; 80053; 93005; 96365; 96376; 99285; 72128; 72131; 74174; 80162; 81003; 81015; 83735; 83880; 84484; 85025; 87086; 93010; 99284; J1940; J3490

== ENCOUNTER 2023-01-02 19:22 | Outpatient (REF) | payer MEDICARE, MEDICAID, SELFPAY ==
[2023-01-02 16:41] LABS: COMMENT (LAB VIEW ONLY) 128.73 mg/dL; PROTEIN 23.4 mg/dL; Prot/Crea Ur Ratio 0.18
== END 2023-01-02 19:23 | disposition home or self-care (01) ==
LOC: NCHCN 19:22
PROVIDERS: PCP Physician Assistant Medical; Visit Provider Physician Assistant Medical
DX: I70.1 Atherosclerosis of renal artery (principal)
CPT/HCPCS: 82565; 84156

== ENCOUNTER → 2023-01-03 01:05 | Outpatient (CLI) | payer MEDICARE, MEDICAID, SELFPAY ==
--- NOTE | 2023-01-03 | DI.RAD_ITS ---
Exam(s) XR CERVICAL SP COMP W FLEX/EXT EXAM: XR CERVICAL SP COMP W FLEX/EXT CLINICAL HISTORY: ACUTE NECK PAIN M54.2. TECHNIQUE: 2D digital imaging was performed. Six views were performed. Flexion and extension later al views were performed in addition to the routine views. COMPARISON: No exams were available for comparison FINDINGS: BONES: No fracture or destructive lesion. Vertebral bodies are unremarkable. Severe degenerative ch anges at C1-2. There are degenerative changes of the facet joints throughout. The upper right neura l foramen are suboptimally profiled. Left neural foraminal narrowing is noted at C3-4 and C4-5. DISKS: Intervertebral disc spaces are maintained. ALIGNMENT: There is some straightening of the normal cervical lordosis. There is reduced range of mo tion in flexion and extension. No subluxation. SOFT TISSUE: Normal. The lung apices are clear. IMPRESSION: Degenerative changes of the facet joints. Left-sided neural foraminal narrowing at C3-4 and C4-5. DATA REPOSITORY: RADIATION DOSE DELIVERED:
== END ==
PROVIDERS: PCP Physician Assistant Medical; Visit Provider Nurse Practitioner Family
DX: M46.82 Other specified inflammatory spondylopathies, cervical region (principal); M99.61 Osseous and subluxation stenosis of intervertebral foramina of cervical region
CPT/HCPCS: 72052

== ENCOUNTER 2023-02-03 01:00 | Inpatient (IN) | payer MEDICARE, MEDICAID, SELFPAY ==
[2023-02-03] VITALS (17 sets, daily range): BP systolic 130–175; BP diastolic 57–82; PULSE 61–81; RESP 3–25; TEMP 36.3–36.9; O2SAT 91–100
--- NOTE | 2023-02-03 01:00 | RT.EKG_ITS ---
APPROVED REPORT Exam: Resting ECG Reason for Exam: DIFFICULTY BREATHING Patient Location: E HR:70 bpm ECG Measurements Heart Rate 70 AXIS WA [id number] P [id number] QRSd 127 QRS 83 QT 390 T -44 QTc 422 Conclusion Atrial fibrillation...V-rate 54- 82, irreg A-activity Ventricular premature complex...V complex w/ short R-R interval Right bundle branch block...QRSd>120, terminal axis(90,270) ST depr, consider ischemia, anterolateral lds...ST <-0.10mV, I aVL V2-V6 ATRIAL FIBRILLATION, PVC, RBBB, baseline artificat. When compared to prior 12/31/22 PVC is new, artif act is new. WD
--- NOTE | 2023-02-03 01:00 | DI.RAD_ITS ---
Exam(s) XR PORTABLE CHEST AP EXAM: XR PORTABLE CHEST AP CLINICAL HISTORY: SOB. TECHNIQUE: 2D digital imaging was performed. COMPARISON: CR CHEST 2 VIEWS PA,LAT from 07/12/2010 CT CHEST FOR PULMONARY EMBOLUS from 07/14/[address] ABDOMEN PELVIS W from 05/01/2020 CR,XR XR PORTABLE CHEST AP from 05/01/2020 CR,XR XR CHEST 2V PA LATERAL from 11/15/[address] CHEST HIGH RESOLUTION from 06/01/2022 CR XR PORTABLE CHEST AP from 12/25/2022 FINDINGS: Single AP portable view. Heart size is upper normal. The mediastinum is not widened. Advanced bilateral symmetrical interstitial lung disease is again noted, not associated with obvious pleural effusions. IMPRESSION: Extensive bilateral interstitial disease again noted. No new confluent infiltrates. No obvious pleu ral effusions. Heart size upper normal. DATA REPOSITORY: RADIATION DOSE DELIVERED:
--- NOTE | 2023-02-03 01:15 | W.ED.GENAD ---
Discharge Plan Disposition Patient Disposition: Admit to [facility] Discharge Details Clinical Impression: Acute exacerbation of congestive heart failure, Acute exacerbation of chronic obstructive pulmonary disease (COPD) Primary Care Provider: Raquel Martin ED Provider: Jazmin Contreras Home Meds and New Rx's Prescriptions: No Action acetaminophen [Tylenol] 325 mg tablet 325 mg PO Q6H PRN triamcinolone acetonide 0.1 % cream 1 applic topical BID Hold Instructions: defered mecobalamin (vitamin B12) 10,000 mcg recon soln 1,000 mcg subcut [id number] albuterol sulfate [Ventolin HFA] 90 mcg/actuation HFA aerosol inhaler 2 puff inhalation Q6H PRN digoxin [Digox] 125 mcg (0.125 mg) tablet 125 mcg PO DAILY potassium chloride 10 mEq capsule, extended release 10 meq PO DAILY albuterol sulfate 2.5 mg /3 mL (0.083 %) solution for nebulization 2.5 mg inhalation .Q 4-6H PRN tiotropium bromide [Spiriva with HandiHaler] 18 mcg capsule, w/inhalation device 18 mcg Inhalation DAILY Eliquis 5 mg tablet 5 mg PO BID Qty: 180 3RF metoprolol tartrate 25 mg tablet 12.5 mg PO BID Patient Comments: ordered by PCP RH furosemide 40 mg tablet 40 mg PO DAILY Qty: 90 3RF simvastatin 20 mg tablet 20 mg PO DAILY Qty: 14 0RF Medical Decision Making 82-year-old female with history of CHF and COPD presents for evaluation of shortness of breath. Oxygen was placed in route by EMS as they were having difficulty registering oxygen saturation. Patient is not on home oxygen. When compared to prior earlier today heart rate has increased. X-ray shows chronic lung disease. Laboratory studies concerning for elevated BNP. Is elevated above her baseline. She does have elevated troponin. I do feel this is likely secondary to strain from CHF exacerbation. She was given IV Lasix. COPD exacerbation was treated with IV magnesium, IV Solu-Medrol, DuoNeb, and Doxycyline was given. Patient initially had improvement after medications however she then became mildly hypoxic and nasal cannula oxygen was placed. She will require hospitalization for further management and treatment. Case discussed with hospitalist who will admit to their service. I did discuss with patient she states that she is DNR/DNI. Jessica is her DPOA. HPI General Date/Time Provider Initiated Documentation: 02/03/23 01:02. HPI Narrative: 82-year-old female with history of COPD and CHF presents for evaluation of shortness of breath. Patient states that this morning she had difficulty getting air in. She became very anxious and short of breath and called the ambulance. She did not use her nebulizer at home. She is not on home oxygen. Denies any recent steroid use. She does have bilateral leg swelling which is chronic. She states that she did have an increase in her diuretic recently but she does not think that it is helping. She is got a chronic cough. Denies any increased cough. She has no change in sputum production as far she is aware. She has macular degeneration and is not able to see the sputum well. She states that she has decreased appetite baseline. Denies any nausea or vomiting. No difficulty urinating. Related Data Home Medications Medication Instructions Recorded Confirmed acetaminophen 325 mg tablet 325 mg PO Q6H PRN 01/13/20 02/03/23 (Tylenol) albuterol sulfate 90 mcg/actuation 2 puff inhalation Q6H PRN 05/17/21 02/03/23 aerosol inhaler (Ventolin HFA) mecobalamin (vitamin B12) 10,000 1,000 mcg subcut [id number] 05/17/21 02/03/23 mcg solution for injection digoxin 125 mcg (0.125 mg) tablet 125 mcg PO DAILY 07/13/21 02/03/23 (Digox) potassium chloride 10 mEq 10 meq PO DAILY 07/13/21 02/03/23 capsule,extended release albuterol sulfate 2.5 mg/3 mL 2.5 mg inhalation .Q 4-6H PRN 12/14/21 02/03/23 (0.083 %) solution for nebulization tiotropium bromide 18 mcg capsule 18 mcg inhalation DAILY 02/07/22 02/03/23 with inhalation device (Spiriva with HandiHaler) apixaban 5 mg tablet (Eliquis) 5 mg PO BID #180 tabs 04/14/22 02/03/23 triamcinolone acetonide 0.1 % 1 applic topical BID 05/08/22 02/03/23 topical cream metoprolol tartrate 25 mg tablet 12.5 mg PO BID 02/15/23 11/11/23 furosemide 40 mg tablet 40 mg PO DAILY #90 tabs 07/17/22 02/03/23 simvastatin 20 mg tablet 20 mg PO DAILY #14 tabs 12/31/22 02/03/23 Previous Rx's Medication Instructions Recorded apixaban 5 mg tablet (Eliquis) 5 mg PO BID #180 tabs 04/14/22 furosemide 40 mg tablet 40 mg PO DAILY #90 tabs 07/17/22 simvastatin 20 mg tablet 20 mg PO DAILY #14 tabs 12/31/22 Allergies Allergy/AdvReac Type Severity Reaction Status Date / Time pseudoephedrine HCl Allergy Intermediate Swelling/Ed Verified 12/28/22 11:52 [From Sudafed] yuniel Sulfa (Sulfonamide Allergy itch/rash Verified 12/28/22 11:52 Antibiotics) erythromycin base AdvReac Intermediate GI upset Verified 12/28/22 11:52 codeine AdvReac hyper Verified 12/28/22 11:52 General Stated Complaint: SOB ADAM: 2 Review of Systems Narrative: Remainder of review of systems otherwise negative except for as noted in the HPI x10. PFSH All Active Problems (Updated 02/03/23 @ 02:33 by Jazmin Contreras MD) Acute exacerbation of chronic obstructive pulmonary disease (COPD) (Acute) Acute exacerbation of congestive heart failure (Acute) Raynauds disease (Acute) Lower extremity edema (Acute) Weight loss (Acute) ILD (interstitial lung disease) (Acute) Personal history of nicotine dependence (Acute) Abnormal chest x-ray (Acute) Pain, foot (Acute) Nail dystrophy (Acute) Corns and callosities (Acute) Diastolic heart failure (Acute) Dyspnea (Acute) Tachycardia (Acute) Pre-diabetes (Acute) PVD (peripheral vascular disease) (Chronic) Lumbar radiculopathy (Acute) Anxiety (Chronic) COPD (chronic obstructive pulmonary disease) (Chronic) Atrial fibrillation, chronic (Acute) HTN (hypertension) (Chronic) Claudication of left lower extremity (Chronic) Pulmonary emphysema (Chronic) PMR (polymyalgia rheumatica) (Chronic) Medical History B12 deficiency Elevated serum creatinine COVID-19 Hx of chronic cholecystitis Hx of carpal tunnel syndrome R side Dense breasts 2019. Category C. Normal mammogram. Dysuria (~10/2018) Limited range of motion of shoulder R sided. 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 + HR HPV beginning 2003. 2013 Pap Nl/HPV Neg 2014 Pap Nl/HPV + 2016 Pap Nl/HPV + ( Neg HPV 16 & 18) 2017 Pap Nl/HPV Neg 2020. Pap Nl/HPV Neg. Recommended stop screening paps. Surgical History History of cholecystectomy Hx laparoscopic cholecystectomy (~12/30/19) H/O: pt. denies, pt. states one child was born vaginally S/P cataract surgery S/P tubal ligation Social History Smoking/Tobacco Use Status: Former Tobacco Use Quit Date: 03/26/07 Tobacco: How many years used: 10 Smoking risk assessment performed?: Yes Alcohol Intake: current Alcohol Intake frequency: holidays/special occasions only Alcohol type: wine and hard liquor Drug use: Never Substance use type: does not use Details: alcohol: t-7 Household members: none and other Details: Lives alone [email or web address] 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 GC - Bhargav 24, Naeem 20, Pavithra 19. Female Reproductive History Menstrual Menopause type: natural History History 6 Para Hx # Term Pregnancies 5 Multiple births Hx # Pregnancies Ectopic pregnancies AB induced Hx Number of Living Children AB spontaneous Exam Narrative Exam Narrative: General: non-toxic, no respiratory distress, comfortable HEENT: normocephalic, atraumatic, lids and lashes normal, PERRL, EOMI, anicteric sclera, no conjunctival injection, moist oral mucosa Card: regular rate and rhythm, S1S2, no murmurs, rubs, or gallops Lungs: Minimal air exchange, increased respiratory rate, + occasional crackles, no wheezes, rales, rhonchi, or retractions Abd: soft, non-tender, non-distended, normal bowel sounds, no rebound or guarding, no peritoneal signs Musculoskeletal: full range of motion of arms and legs, no tenderness to palpation. no clubbing or cyanosis, bilateral lower extremity edema with Ethan wraps in place Neurologic: appropriate for age, strength normal Psych: alert and oriented Skin: no petechiae, no lesions, warm and dry Course Vital Signs Vital signs: Vital Signs Temperature 36.5 C 02/03/23 01:04 Pulse 70 02/03/23 01:04 Respiratory Rate 17 02/03/23 01:04 Blood Pressure 169/76 H 02/03/23 01:04 Pulse Oximetry 97 02/03/23 01:04 Temperature 36.5 C 02/03/23 01:04 Pulse 70 02/03/23 01:04 Respiratory Rate 17 02/03/23 01:04 Respiratory Effort Normal 02/03/23 01:12 Blood Pressure 169/76 H 02/03/23 01:04 Pulse Oximetry 97 02/03/23 01:04 Oxygen Delivery Method Room Air 02/03/23 01:04 Oxygen Flow Rate 0 02/03/23 01:04 Pain Level 0 02/03/23 01:04 Lab/Test Results Lab/Test Results: 02/03/23 01:09 Blood Blood Culture - Pending 02/03/23 01:09 Blood Blood Culture - Pending Critical Care Time Critical Care Time Attestation: CRITICAL CARE Total critical care time: 40 minutes Critical care concerns: Hypoxia, COPD exacerbation, CHF exacerbation Critical care interventions: Oxygen, IV magnesium, IV Solu-Medrol, nebs, doxycycline, IV Lasix, hospitalist consultation Total critical care time included the assessment and discussions as described in the emergency department history, physical, and medical decision making. The critical care time provided excludes separately billable procedures.
[2023-02-03 01:33] LABS: BE (Venous) 6 mmol/L (-2-3); HCO3 (Venous) 32 mmol/L (23-28); O2 Sat (Venous) 32 %; TCO2 (Venous) 30 mmol/L (24-29); pH (Venous) 7.31 (7.31-7.41); pO2 (Venous) 24 mmHg
[2023-02-03 01:38] LABS: Abs Immature Grans 0.01 10^3/uL (0.0-0.06); Absolute Basophil Count 0.04 10^3/uL (0.0-0.2); Absolute Eosinophil Count 0.06 10^3/uL (0.0-0.7); Absolute Lymphocyte Count 0.63 10^3/uL (1.2-3.4); Absolute Monocyte Count 0.64 10^3/uL (0.1-0.8); Basophils % 0.8; Eosinophils % 1.2; HCT 41.8 % (36.0-46.0); HGB 12.7 g/dL (11.2-15.7); Immature Grans % 0.2; Lactate 1.3 mmol/L (0.6-1.4); Lymphocytes % 12.4; MCH 31.1 pg (27.0-33.0); MCHC 30.4 % (32.0-36.0); MCV 103 fL (80-95); MPV 9.2 fL (8.0-11.0); Monocytes % 12.6; Neutrophils % 72.8; Platelet Count 255 10^3/uL (130-400); RBC 4.08 10^6/uL (3.93-5.22); RDW 15.3 % (11.7-14.6); RDW-SD 56.7 fL; WBC 5.08 10^3/uL (4.4-10.8); pCO2 (Venous) 63 mmHg (41-51)
[2023-02-03] MEDS: MAGNESIUM SULFATE 2 GM/50 ML BAG IVPB (02:02)
[2023-02-03] MEDS: methylPREDNISolone SUCC 125 MG VIAL IVP (02:02)
[2023-02-03] MEDS: Albuterol/Ipratropium 3 ML UPD VIAL UPD ×4 (02:02→19:37)
[2023-02-03 02:03] LABS: ALT 22 U/L (14-59); AST 38 U/L (15-37); Albumin 3.1 g/dL (3.4-5.0); Alkaline Phosphatase 74 U/L (46-116); Anion Gap 6.4 mmol/L (3-11); BUN 24 mg/dL (7-18); Bilirubin, Total 0.8 mg/dL (0.2-1.0); CO2 29.6 mmol/L (21.0-32.0); CREATININE 1.6 mg/dL (0.55-1.02); Calcium 9.4 mg/dL (8.5-10.1); Chloride 106 mmol/L (98-107); Glucose 99 mg/dL (74-106); Potassium 3.9 mmol/L (3.5-5.1); Sodium 142 mmol/L (136-145); Total Protein 6.5 g/dL (6.4-8.2)
[2023-02-03 02:10] LABS: NT-proBNP 7644 pg/mL (<300)
--- NOTE | 2023-02-03 02:15 | DI.VRAD_ITS ---
PROCEDURE INFORMATION: Exam: XR Chest Exam date and time: 02/03/2023 1:47 AM Age: 82 years old Clinical indication: Chest wall pain TECHNIQUE: Imaging protocol: Radiologic exam of the chest. Views: 1 view. COMPARISON: CR XR PORTABLE CHEST AP 12/25/2022 1:23 PM FINDINGS: Lungs: Chronic interstitial changes with no acute pulmonary infiltrate. Pleural spaces: Unremarkable. No pleural effusion. No pneumothorax. Heart/Mediastinum: Unremarkable. No cardiomegaly. Bones/joints: Unremarkable. IMPRESSION: No acute finding. Dictated and Authenticated by: Pedro Conde MD. Ordering:CINDY Wu MD
[2023-02-03 02:17] LABS: Digoxin 2.16 ng/mL (0.90-2.00); Troponin I 91 ng/L (<or=60)
[2023-02-03 02:21] LABS: COVID-19 PCR Negative (Negative); Influenza A PCR Negative (Negative); Influenza B PCR Negative (Negative); RSV PCR Negative (Negative)
--- NOTE | 2023-02-03 02:26 | NUR.NOTE ---
Nursing Note:JANENE from home, pt states she was sleeping and woke up with SOB, she states that this has not happened at night before and usually in the morning. pt has Hx of COPD, she did not use her neb tx due to it sometimes cause her to be anxious and then she would not be able to calm down. Pt arrived anxious and on 2l NC. pt denies any CP or weakness IV and bc x2 drawn pt able to stand and use the commode with assistance, pt given x1 neb in the ED and currently trial off MD JAZZMINE aware
[2023-02-03 02:33] LABS: Source Nasopharynx
[2023-02-03 02:40] LABS: Bilirubin Small (Negative); Blood Moderate (Negative); Clarity Clear (Clear); Glucose Negative (Negative); Ketones Trace mg/dL (Negative); Leukocyte Esterase Trace (Negative); Nitrite Negative (Negative); Specific Gravity 1.025 (1.005-1.025); Urobilinogen 0.2 mg/dL (Up to 0.2)
[2023-02-03] MEDS: Furosemide 40 MG/4 ML VIAL IVP (02:41)
[2023-02-03] MEDS: Doxycycline Hyclate 100 MG CAP PO (02:42)
[2023-02-03 02:44] LABS: Bacteria Rare HPF (Negative); C & S Indicated? Yes; Casts 0-2 Hyaline LPF (Negative); Crystals Negative HPF (Negative); Epithelial Cells Negative HPF (Negative); Mucus Negative (Negative); RBC 20-50 HPF (0-2); WBC 0-2 HPF (0-5)
--- NOTE | 2023-02-03 03:17 | W.PM.HP.N ---
Date of service: 02/03/23 Time of Service: 03:17 Assessment and Plan Assessment and plan (1) Acute respiratory failure with hypoxia and hypercarbia: Start date: 02/03/23 Status: Acute Assessment and plan: This is an 82-year-old lady who has chronic PND with diastolic CHF and peripheral edema slowly worsening who has not increased her Lasix as instructed by her physician though she has permission. She presents with acute exacerbation of CHF and COPD with a history of also having pulmonary fibrosis on treatment. She responded to treatment of both and will continue hospitalization with IV Solu-Medrol, aggressive respiratory treatment and Rocephin will be given for possible increase sputum though this is unclear and to cover UTI. She does not have any infiltrates on chest x-ray. She is now oxygen dependent during this episode and hopefully she can be weaned off oxygen before discharge home. She was not previously on home oxygen therapy. She is a DNR/DNI. (2) Acute exacerbation of chronic obstructive pulmonary disease (COPD): Start date: 02/03/23 Status: Acute Assessment and plan: Continue IV Solu-Medrol with aggressive respiratory treatment. (3) Acute exacerbation of congestive heart failure: Start date: 02/03/23 Status: Acute Assessment and plan: Continue twice daily IV Lasix. Trend labs. Patient has been on potassium as an outpatient. Qualifiers: Heart failure type: diastolic Qualified Code(s): I50.33 - Acute on chronic diastolic (congestive) heart failure (4) Elevated troponin level not due to acute coronary syndrome: Start date: 02/03/23 Status: Acute Assessment and plan: Patient's initial troponin was slightly elevated at 91 and is trending downward with 83. Follow-up only if patient's symptoms worsen. Patient does have CKD and this may keep the department from trending downward quickly. Patient is a DNR/DNI. (5) ILD (interstitial lung disease): Status: Chronic Assessment and plan: Patient has a history of pulmonary fibrosis but refuses further evaluation. Continue follow-up with cardiology and pulmonology as appropriate. (6) UTI (urinary tract infection): Start date: 02/03/23 Status: Acute Assessment and plan: Patient will be covered with Rocephin with urine culture pending. Transition to oral therapy once urine culture pathogen is identified with sensitivities. Qualifiers: Urinary tract infection type: acute cystitis Hematuria presence: with hematuria Qualified Code(s): N30.01 - Acute cystitis with hematuria (7) Atrial fibrillation, chronic: Status: Chronic Assessment and plan: Not exacerbated patient chronically on metoprolol and Eliquis which will be continued. Cardiac monitoring while being treated for respiratory exacerbation. Patient digoxin level was slightly elevated and this will be held until rechecking in the morning. This was not a true fasting level when drawn just after midnight. Patient was not symptomatic with increased level. (8) HTN (hypertension): Status: Chronic Assessment and plan: Continue monitoring on outpatient medical therapy. Qualifiers: Hypertension type: primary hypertension Qualified Code(s): I10 - Essential (primary) hypertension (9) PMR (polymyalgia rheumatica): Status: Chronic Assessment and plan: Patient currently is not on steroids but this may improve on Solu-Medrol. Patient may require prednisone wean at discharge. Sed rate was not performed. She does not have any new complaints. History of Present Illness History of Present Illness Chief Complaint: Acute dyspnea with history of CHF and COPD Narrative: This is an 82-year-old female patient with a past history of pulmonary fibrosis and diastolic CHF who presented to the ED with complaints of extreme shortness of breath and air hunger earlier the morning of admission. She does have a history of PND every bacteriologist fishery just past midnight but this is more severe. She is not home oxygen dependent and did require oxygen supplementation by the EMS in transfer and in the ED could not be weaned off oxygen therapy. She was having poor air movement with slightly improved with Solu-Medrol and a dose of Lasix for CHF. Her BNP was elevated from her baseline but not doubled. She is due for an echocardiogram update later this month with the last echocardiogram revealing preserved left ventricular ejection fraction. She is on Lasix dose which she has not increased though she was given permission to increase because of her PND. Does have daily peripheral edema. She was given a dose of doxycycline but her urine also had possible UTI by lab not having symptoms other than frequency with her diuretic. She did not appear toxic but was not at baseline with continued oxygen needs though she was less dyspneic. She does have a history of increased coughing but was not able to see change in sputum because of decreased vision. She denies any fever or chills. He has had no GI symptoms. The patient did have advised to further evaluate her pulmonary status but refused further evaluation. She does have a history of chronic atrial fibrillation but had no chest pain though her troponin was slightly elevated which was thought to be secondary to right ventricular strain with her exacerbation of CHF and respiratory status. Patient is a DNR/DNI. Review of Systems Narrative: 13 point review of systems otherwise unrevealing or stable. [facility] All Active Problems (Updated 02/03/23 @ 06:18 by Don Gomes) UTI (urinary tract infection) (Acute) Elevated troponin level not due to acute coronary syndrome (Acute) Acute respiratory failure with hypoxia and hypercarbia (Acute) Acute exacerbation of chronic obstructive pulmonary disease (COPD) (Acute) Acute exacerbation of congestive heart failure (Acute) Raynauds disease (Acute) Lower extremity edema (Acute) Weight loss (Acute) ILD (interstitial lung disease) (Chronic) Personal history of nicotine dependence (Acute) Abnormal chest x-ray (Acute) Pain, foot (Acute) Nail dystrophy (Acute) Corns and callosities (Acute) Diastolic heart failure (Acute) Dyspnea (Acute) Tachycardia (Acute) Pre-diabetes (Acute) PVD (peripheral vascular disease) (Chronic) Lumbar radiculopathy (Acute) Anxiety (Chronic) COPD (chronic obstructive pulmonary disease) (Chronic) Atrial fibrillation, chronic (Chronic) HTN (hypertension) (Chronic) Claudication of left lower extremity (Chronic) Pulmonary emphysema (Chronic) PMR (polymyalgia rheumatica) (Chronic) Medical History B12 deficiency Elevated serum creatinine COVID-19 Hx of chronic cholecystitis Hx of carpal tunnel syndrome R side Dense breasts 2019. Category C. Normal mammogram. Dysuria (~10/2018) Limited range of motion of shoulder R sided. 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 + HR HPV beginning 2003. 2013 Pap Nl/HPV Neg 2014 Pap Nl/HPV + 2016 Pap Nl/HPV + ( Neg HPV 16 & 18) 2017 Pap Nl/HPV Neg 2019. Pap Nl/HPV Neg. Recommended stop screening paps. Surgical History History of cholecystectomy Hx laparoscopic cholecystectomy (~12/30/19) H/O: pt. denies, pt. states one child was born vaginally S/P cataract surgery S/P tubal ligation Social History Smoking/Tobacco Use Status: Former Tobacco Use Quit Date: 03/26/07 Tobacco: How many years used: 10 Smoking risk assessment performed?: Yes Alcohol Intake: current Alcohol Intake frequency: holidays/special occasions only Alcohol type: wine and hard liquor Drug use: Never Substance use type: does not use Details: alcohol: t-7 Household members: none and other Details: Lives alone at [address] [employer] [place]. D x20 years Housing: apartment Number of Children: 5 number of grandchildren: 3 current occupation: Retired with 50 years [employer] Pets and animals: Yes (Jose Currie) Pets and animals: dog(s) Sexually active: No Current gender identity: female Do you feel safe at home: Yes Do you feel safe in your relationship?: Yes Additional Social history: Son-Arron. 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 GC - Bhargav 24, Naeem 20, Pavithra 21. Female Reproductive History Menstrual Menopause type: natural History History 6 Para Hx # Term Pregnancies 5 Multiple births Hx # Pregnancies Ectopic pregnancies AB induced Hx Number of Living Children AB spontaneous Meds Allergies and Home Medications Allergies Allergy/AdvReac Type Severity Reaction Status Date / Time pseudoephedrine HCl Allergy Intermediate Swelling/Ed Verified 12/28/22 11:52 [From [facility]] yuniel Sulfa (Sulfonamide Allergy itch/rash Verified 12/28/22 11:52 Antibiotics) erythromycin base AdvReac Intermediate GI upset Verified 12/28/22 11:52 codeine AdvReac hyper Verified 12/28/22 11:52 Home Medications Medication Instructions Recorded Confirmed Type acetaminophen 325 mg tablet 325 mg PO Q6H PRN 01/13/20 02/03/23 History (Tylenol) albuterol sulfate 90 mcg/actuation 2 puff inhalation Q6H PRN 05/17/21 02/03/23 History aerosol inhaler (Ventolin HFA) mecobalamin (vitamin B12) 10,000 1,000 mcg subcut [id number] 05/17/21 02/03/23 History mcg solution for injection digoxin 125 mcg (0.125 mg) tablet 125 mcg PO DAILY 07/13/21 02/03/23 History (Digox) potassium chloride 10 mEq 10 meq PO DAILY 07/13/21 02/03/23 History capsule,extended release albuterol sulfate 2.5 mg/3 mL 2.5 mg inhalation .Q 4-6H PRN 12/14/21 02/03/23 History (0.083 %) solution for nebulization tiotropium bromide 18 mcg capsule 18 mcg inhalation DAILY 02/07/22 02/03/23 History with inhalation device (Spiriva with HandiHaler) apixaban 5 mg tablet (Eliquis) 5 mg PO BID #180 tabs 04/14/22 02/03/23 Rx triamcinolone acetonide 0.1 % 1 applic topical BID 05/08/22 02/03/23 History topical cream metoprolol tartrate 25 mg tablet 12.5 mg PO BID 05/10/22 02/03/23 History furosemide 40 mg tablet 40 mg PO DAILY #90 tabs 07/17/22 02/03/23 Rx simvastatin 20 mg tablet 20 mg PO DAILY #14 tabs 12/31/22 02/03/23 Rx Exam Narrative Exam Narrative: General: Patient appears appropriate for age, thinly built and sitting in bed with her head at a 45 degree angle in no acute distress. She is anxious. She is hard of hearing. She is alert and oriented at least to person and place. HEENT: Normocephalic, eyes with pupils equal and reactive to light symmetrically, extraocular movement intact and sclera anicteric. Oropharynx with moist mucosa. Neck: Supple without JVD. Back: Kyphotic without CVA tenderness. Lungs: Bronchovesicular breath sounds diffusely with occasional coarse crackle but no focalizing. Markedly decreased aeration in all lung bauer with slight increase explained phase with no expiratory wheeze. No intercostal space retractions. Heart: Irregularly irregular rhythm with normal rate. There was 6 holosystolic murmur over apex with no gallops or rubs. Breast: Exam deferred. Abdomen: Normal contour, soft and nontender to palpation with no palpable hepatosplenomegaly. No guarding or rebound. Bowel sounds positive all quadrants. Genitalia/rectal: Exam deferred. Extremities: 2+ pitting edema both lower extremities without cyanosis or clubbing. Fair capillary refill. Moderately severe osteoarthritic changes of the IP joints of the hands. Skin: Normal color, warm and dry. Neuro: Cranial nerves II through XII grossly intact with decreased hearing acuity. She has no focal motor deficits. Remote and recent memory appear to be grossly intact. Results Imaging Imaging Studies: Exam: XR Chest Exam date and time: 02/03/2023 1:47 AM Age: 82 years old Clinical indication: Chest wall pain TECHNIQUE: Imaging protocol: Radiologic exam of the chest. Views: 1 view. COMPARISON: CR XR PORTABLE CHEST AP 12/25/2022 1:23 PM FINDINGS: Lungs: Chronic interstitial changes with no acute pulmonary infiltrate. Pleural spaces: Unremarkable. No pleural effusion. No pneumothorax. Heart/Mediastinum: Unremarkable. No cardiomegaly. Bones/joints: Unremarkable. IMPRESSION: No acute finding. Admission Date: 05/03/21 : 1940 EXAM: Comprehensive 2D, Doppler, and color-flow Echocardiogram Patient Location: Out-Patient Indications: Atrial Fibrillation Other Information Study Quality: Adequate Conclusion Normal left ventricular wall thickness and chamber size. Estimated ejection fraction is approximately 55%. Wall motion is normal Normal right ventricular size and systolic function Both atria are moderately to severely dilated Mildly sclerotic trileaflet aortic valve without stenosis or regurgitation Normal mitral valve with moderate regurgitation Normal tricuspid valve with moderate regurgitation. Estimated right ventricular systolic pressure is 34 mmHg Atrial fibrillation was present throughout with an average heart rate of 125 Labs 02/03/23 01:22 02/03/23 01:22 Labs: Laboratory Results - last 24 hr 02/03/23 02/03/23 02/03/23 01:22 01:39 01:50 WBC 5.08 RBC 4.08 Hgb 12.7 Hct 41.8 MCV 103 H MCH 31.1 MCHC 30.4 L RDW 15.3 H Plt Count 255 MPV 9.2 Immature Gran % 0.2 Neutrophils % 72.8 Lymphocytes % 12.4 Monocytes % 12.6 Eosinophils % 1.2 Basophils % 0.8 Nucleated RBC % 0.0 Absolute Neutrophils 3.70 Absolute Lymphocytes 0.63 L Absolute Monocytes 0.64 Absolute Eosinophils 0.06 Absolute Basophils 0.04 VBG pH 7.31 VBG pCO2 63 H* VBG pO2 24 VBG HCO3 32 H VBG Total CO2 30 H VBG O2 Saturation 32 VBG Base Excess 6 H VBG Lactate 1.3 Sodium 142 Potassium 3.9 Chloride 106 Carbon Dioxide 29.6 Anion Gap 6.4 BUN 24 H Creatinine 1.6 H Est GFR (CKD-EPI 2020) 32.40 Glucose 99 Calcium 9.4 Total Bilirubin 0.8 AST 38 H ALT 22 Alkaline Phosphatase 74 Troponin I 91 H* NT-Pro-B Natriuret Pep 7644 H Total Protein 6.5 Albumin 3.1 L Urine Color Yellow Urine Clarity Clear Urine pH 5.0 Ur Specific [place] 1.025 Urine Protein 30 H Urine Ketones Trace H Urine Blood Moderate H Urine Nitrite Negative Urine Bilirubin Small H Urine Urobilinogen 0.2 Ur Leukocyte Esterase Trace H Urine RBC 20-50 H Urine WBC 0-2 Ur Epithelial Cells Negative Urine Crystals Negative Urine Bacteria Rare Urine Casts 0-2 Hyaline Urine Mucus Negative Ur Culture Indicated? Yes Urine Glucose Negative Digoxin 2.16 H* COVID-19 Source Nasopharynx SARS-CoV-2 (PCR) Negative Influenza Type A (PCR) Negative Influenza Type B (PCR) Negative RSV (PCR) Negative Last Vital Signs Temp 36.5 C 02/03/23 01:04 Pulse 72 02/03/23 03:06 Resp 21 02/03/23 03:06 BP 143/57 H 02/03/23 03:06 Pulse Ox 97 02/03/23 03:06 Time Spent Time spent with Patient: >75 minutes Time was spent: preparing to see the patient(eg.review tests), obtaining and/or reviewing separately otained hiistory, ordering medications,tests, procedures, referring, communicating with other health special needs caregiver, indepentently interpreting results, counseling the patient and care coordination
[2023-02-03] MEDS: cefTRIAXone 1 GM/50 ML BAG IVPB (03:46)
[2023-02-03 05:17] LABS: Troponin I 83 ng/L (<or=60)
[2023-02-03 07:16] LABS: HGB 11.8 g/dL (11.2-15.7); MCH 30.5 pg (27.0-33.0); MCHC 30.3 % (32.0-36.0); MCV 101 fL (80-95); MPV 9.5 fL (8.0-11.0); Platelet Count 226 10^3/uL (130-400); RBC 3.87 10^6/uL (3.93-5.22); RDW 15.1 % (11.7-14.6); WBC 4.56 10^3/uL (4.4-10.8)
[2023-02-03 07:37] LABS: ALT 23 U/L (14-59); AST 40 U/L (15-37); Albumin 3.4 g/dL (3.4-5.0); Alkaline Phosphatase 80 U/L (46-116); Anion Gap 13.4 mmol/L (3-11); BUN 22 mg/dL (7-18); Bilirubin, Total 0.9 mg/dL (0.2-1.0); CO2 25.6 mmol/L (21.0-32.0); CREATININE 1.5 mg/dL (0.55-1.02); Calcium 9.3 mg/dL (8.5-10.1); Chloride 102 mmol/L (98-107); Estimated GFR 35.01 (mL/min/1.73m2); Glucose 130 mg/dL (74-106); Sodium 141 mmol/L (136-145); TSH (W/Ref FT4) 1.32 uIU/mL (0.36-3.74); Total Protein 6.4 g/dL (6.4-8.2)
[2023-02-03 07:40] LABS: Digoxin 2.06 ng/mL (0.90-2.00)
[2023-02-03] MEDS: Furosemide 40 MG/4 ML VIAL 60 MG IVP ×2 (07:42→15:58)
[2023-02-03] MEDS: Metoprolol 12.5 MG TAB PO ×2 (07:43→20:09)
[2023-02-03] MEDS: Potassium Chloride 10 MEQ CAPCR PO (07:43)
--- NOTE | 2023-02-03 08:37 | PGE_ITS ---
Date of Service Date of service: 02/03/23 Time of Service: 08:39 Assessment and Plan Assessment and plan (1) Acute respiratory failure with hypoxia and hypercarbia: Start date: 02/03/23 Status: Acute Assessment and plan: No further Oxygen requirement this morning, will continue to monitor History of ILD Continue IV Solu-Medrol She was not previously on home oxygen therapy. She is a DNR/DNI Continue aggressive pulmonary toilet. (2) Acute exacerbation of chronic obstructive pulmonary disease (COPD): Start date: 02/03/23 Status: Acute Assessment and plan: As above (3) Acute exacerbation of congestive heart failure: Start date: 02/03/23 Status: Acute Assessment and plan: Will Continue twice daily IV Lasix and taper as the patient improves BMP and Mg in AM. Qualifiers: Heart failure type: diastolic Qualified Code(s): I50.33 - Acute on chronic diastolic (congestive) heart failure (4) Elevated troponin level not due to acute coronary syndrome: Start date: 02/03/23 Status: Acute Assessment and plan: Troponin values stabilized max 91 then 83; repeat if symptomatic (5) ILD (interstitial lung disease): Status: Chronic Assessment and plan: History of pulmonary fibrosis but refuses further evaluation. Considering follow-up or consultation with cardiology and pulmonology as appropriate. (6) UTI (urinary tract infection): Start date: 02/03/23 Status: Acute Assessment and plan: Will continue on Rocephin until urine culture and sensitivity results allows for antibiotic with a narrow spectrum, considering the possibility for oral therapy bllod cultures also pending Qualifiers: Hematuria presence: with hematuria Urinary tract infection type: acute cystitis Qualified Code(s): N30.01 - Acute cystitis with hematuria (7) Atrial fibrillation, chronic: Status: Chronic Assessment and plan: Remains on tele A-fib 72-74 metoprolol Eliquis which will be continued. Digoxin level: 2.16, 2.06 will recheck in AM to reinitiate her digoxin; Digoxin on hold for now (8) HTN (hypertension): Status: Chronic Qualifiers: Hypertension type: primary hypertension Qualified Code(s): I10 - Essential (primary) hypertension (9) PMR (polymyalgia rheumatica): Status: Chronic Assessment and plan: Patient currently is not on steroids , we started methylprednisolone IV for above mentioned diagnosis Considering prednisone wean at discharge. (10) Contraindication to deep vein thrombosis (DVT) prophylaxis: Status: Acute Assessment and plan: patient on Eliquis for A-Fib (11) Discharge planning issues: Status: Acute Assessment and plan: No need at this time , CM to f/u Subjective Subjective Patient reports: no new complaints, feels better, tolerating liquids well, tole rating a regular diet, voiding w/o difficulty, flatus and shortness of breath; denies diarrhea, blood in stool, vomiting or fever Exam Narrative Exam Narrative: General: Patient appears appropriate for age, is less anxious,is hard of hearing. She is alert and oriented at least to person and place. HEENT: Normocephalic, Oropharynx with moist mucosa. Neck: Intact ROM , without JVD. Back: No CVA tenderness. Lungs: right sided basilar fine crackles, decreased bibasilar breath sounds, unlabored. Heart: Tele A-fib 72-74, positive pulse to all ext. Abdomen: Normal contour, soft and nontender to palpation with no palpable hepatosplenomegaly. No guarding or rebound. Bowel sounds positive all quadrants. Urinary: No bladder distention Extremities: 1-2+ pitting edema right > left without cyanosis or clubbing. Fair capillary refill. Skin: Normal color, warm and dry. Neuro: No focal motor deficits. Objective Last Vital Signs Temp 36.3 C L 02/03/23 04:16 Pulse 68 02/03/23 04:16 Resp 18 02/03/23 04:16 BP 154/72 H 02/03/23 04:16 Pulse Ox 92 02/03/23 04:16 Laboratory Results - last 24 hr 02/03/23 02/03/23 02/03/23 01:22 01:39 01:50 WBC 5.08 RBC 4.08 Hgb 12.7 Hct 41.8 MCV 103 H MCH 31.1 MCHC 30.4 L RDW 15.3 H Plt Count 255 MPV 9.2 Immature Gran % 0.2 Neutrophils % 72.8 Lymphocytes % 12.4 Monocytes % 12.6 Eosinophils % 1.2 Basophils % 0.8 Nucleated RBC % 0.0 Absolute Neutrophils 3.70 Absolute Lymphocytes 0.63 L Absolute Monocytes 0.64 Absolute Eosinophils 0.06 Absolute Basophils 0.04 VBG pH 7.31 VBG pCO2 63 H* VBG pO2 24 VBG HCO3 32 H VBG Total CO2 30 H VBG O2 Saturation 32 VBG Base Excess 6 H VBG Lactate 1.3 Sodium 142 Potassium 3.9 Chloride 106 Carbon Dioxide 29.6 Anion Gap 6.4 BUN 24 H Creatinine 1.6 H Est GFR (CKD-EPI 2020) 32.40 Glucose 99 Calcium 9.4 Total Bilirubin 0.8 AST 38 H ALT 22 Alkaline Phosphatase 74 Troponin I 91 H* NT-Pro-B Natriuret Pep 7644 H Total Protein 6.5 Albumin 3.1 L TSH Urine Color Yellow Urine Clarity Clear Urine pH 5.0 Ur Specific [place] 1.025 Urine Protein 30 H Urine Ketones Trace H Urine Blood Moderate H Urine Nitrite Negative Urine Bilirubin Small H Urine Urobilinogen 0.2 Ur Leukocyte Esterase Trace H Urine RBC 20-50 H Urine WBC 0-2 Ur Epithelial Cells Negative Urine Crystals Negative Urine Bacteria Rare Urine Casts 0-2 Hyaline Urine Mucus Negative Ur Culture Indicated? Yes Urine Glucose Negative Digoxin 2.16 H* COVID-19 Source Nasopharynx SARS-CoV-2 (PCR) Negative Influenza Type A (PCR) Negative Influenza Type B (PCR) Negative RSV (PCR) Negative 02/03/23 02/03/23 02/03/23 04:50 04:50 04:50 WBC 4.56 RBC 3.87 L Hgb 11.8 Hct 39.0 MCV 101 H MCH 30.5 MCHC 30.3 L RDW 15.1 H Plt Count 226 MPV 9.5 Immature Gran % Neutrophils % Lymphocytes % Monocytes % Eosinophils % Basophils % Nucleated RBC % Absolute Neutrophils Absolute Lymphocytes Absolute Monocytes Absolute Eosinophils Absolute Basophils VBG pH VBG pCO2 VBG pO2 VBG HCO3 VBG Total CO2 VBG O2 Saturation VBG Base Excess VBG Lactate Sodium 141 Potassium 4.0 Chloride 102 Carbon Dioxide 25.6 Anion Gap 13.4 H BUN 22 H Creatinine 1.5 H Est GFR (CKD-EPI 2020) 35.01 Glucose 130 H Calcium 9.3 Total Bilirubin 0.9 AST 40 H ALT 23 Alkaline Phosphatase 80 Troponin I 83 H* NT-Pro-B Natriuret Pep Total Protein 6.4 Albumin 3.4 TSH Cancelled 1.32 Urine Color Urine Clarity Urine pH Ur Specific [place] Urine Protein Urine Ketones Urine Blood Urine Nitrite Urine Bilirubin Urine Urobilinogen Ur Leukocyte Esterase Urine RBC Urine WBC Ur Epithelial Cells Urine Crystals Urine Bacteria Urine Casts Urine Mucus Ur Culture Indicated? Urine Glucose Digoxin 2.06 H* Cancelled COVID-19 Source SARS-CoV-2 (PCR) Influenza Type A (PCR) Influenza Type B (PCR) RSV (PCR) 02/03/23 02/03/23 07:00 11:00 WBC RBC Hgb Hct MCV MCH MCHC RDW Plt Count MPV Immature Gran % Neutrophils % Lymphocytes % Monocytes % Eosinophils % Basophils % Nucleated RBC % Absolute Neutrophils Absolute Lymphocytes Absolute Monocytes Absolute Eosinophils Absolute Basophils VBG pH VBG pCO2 VBG pO2 VBG HCO3 VBG Total CO2 VBG O2 Saturation VBG Base Excess VBG Lactate Sodium Potassium Chloride Carbon Dioxide Anion Gap BUN Creatinine Est GFR (CKD-EPI 2020) Glucose Calcium Total Bilirubin AST ALT Alkaline Phosphatase Troponin I Cancelled Cancelled NT-Pro-B Natriuret Pep Total Protein Albumin TSH Urine Color Urine Clarity Urine pH Ur Specific [place] Urine Protein Urine Ketones Urine Blood Urine Nitrite Urine Bilirubin Urine Urobilinogen Ur Leukocyte Esterase Urine RBC Urine WBC Ur Epithelial Cells Urine Crystals Urine Bacteria Urine Casts Urine Mucus Ur Culture Indicated? Urine Glucose Digoxin COVID-19 Source SARS-CoV-2 (PCR) Influenza Type A (PCR) Influenza Type B (PCR) RSV (PCR) Time Spent with Patient Time Spent with Patient: >50 minutes Time was spent: preparing to see the patient(eg.review tests), ordering me dications,tests, procedures, referring, communicating with other health healthcare consulting manager, indepentently interpreting results, counseling the patient and care coordination
[2023-02-03 09:03] LABS: Lab Add On Test DONE
[2023-02-03 09:10] LABS: Magnesium 2.7 mg/dL (1.8-2.4)
--- NOTE | 2023-02-03 09:11 | RESPIRATORY ---
RT Assessment Start: 02/03/23 04:39 Freq: .q shift and prn Status: Active Protocol: Document 02/03/23 09:04 BIBIANA (Rec: 02/03/23 09:11 BIBIANA [id number]) RT Assessment Pulmonary History Pulmonary History COPD,Pulmonary Fibrosis Smoking History Smoking/Tobacco Use Status Former Tobacco Use Tobacco: How many years used 30 Quit Date 09/21/06 Tobacco Type cigarettes Packs per Day 1 Cigarettes per Day 25 OXYGEN HISTORY: CPAP Settings N/A BIPAP Settings N/A Trilogy/AVAPS Settings N/A DME/Compliance DME N/A Compliance N/A Current Respiratory Symptoms Current Respiratory Symptoms Shortness of breath Activity Activity Level Very active, takes walks everyday until recently Respiratory Breath Sounds Breath Sounds Any abnormal sounds, decreased breath sounds Respiratory Rate 18-25 Shortness of Breath On exertion Respiratory Therapy Score Total 3 Assessment and Plan RT Treatment Protocol Bronchodilator Aerosol Therapy Protocol,Lung Expansion Therapy Protocol,Bronchial Hygiene Therapy Protocol Note Continue patient current treatment of [place] QID, RT will order IS and Acapella for patient, reassess in 72hrs
[2023-02-03] MEDS: Apixaban 5 MG TAB PO ×2 (09:46→20:09)
[2023-02-03] MEDS: methylPREDNISolone SUCC 125 MG VIAL 80 MG IVP ×2 (09:47→18:12)
[2023-02-03] MEDS: Acetaminophen 325 MG TAB PO ×3 (10:01→23:55)
--- NOTE | 2023-02-03 10:28 | PDOC.CMIN ---
Date of service: 02/03/23 Time of Service: 10:29 Care Management Initial Assmt Initial Assessment REASON FOR HOSPITALIZATION:: Acute respiratory failure with hypoxemia PREVIOUS FUNCTIONAL STATUS/SOCIAL/FAMILY SUPPORTS:: Rehan resides in [place], alone. She has a supportive family, and remains independent at baseline. CURRENT FUNCTIONAL STATUS:: Rehan is sitting on the side of her bed, pleasant in interaction and forthcoming with information. Family meeting coordinated and held in the afternoon with Rehan, her DIL and Grand-daughter. ADVANCE DIRECTIVES:: None on file. Has patient been provided with info about the portal/API?: Yes Did the patient sign up for the portal?: No CODE STATUS:: DNR/DNI INSURANCE COVERAGE / FINANCIAL ISSUES:: Medicare and Medicaid PRIMARY CARE PHYSICIAN:: Raquel Martin POTENTIAL DISCHARGE NEEDS:: Follow up appointments. PATIENT/FAMILY EDUCATION NEEDS:: Review discharge instructions, discuss Ask Me Three. ANTICIPATED BARRIERS TO DISCHARGE:: None identified. TRANSPORTATION:: Via private vehicle with family. PLAN:: SNF referral to [facility]; family education provided around voluntary guardianship, LTM application, short term rehab, etc. CM continues to follow. [facility] All Active Problems (Updated 02/03/23 @ 12:59 by Shantelle Andino APRN) Discharge planning issues (Acute) Contraindication to deep vein thrombosis (DVT) prophylaxis (Acute) UTI (urinary tract infection) (Acute) Elevated troponin level not due to acute coronary syndrome (Acute) Acute respiratory failure with hypoxia and hypercarbia (Acute) Acute exacerbation of chronic obstructive pulmonary disease (COPD) (Acute) Acute exacerbation of congestive heart failure (Acute) Raynauds disease (Acute) Lower extremity edema (Acute) Weight loss (Acute) ILD (interstitial lung disease) (Chronic) Personal history of nicotine dependence (Acute) Abnormal chest x-ray (Acute) Pain, foot (Acute) Nail dystrophy (Acute) Corns and callosities (Acute) Diastolic heart failure (Acute) Dyspnea (Acute) Tachycardia (Acute) Pre-diabetes (Acute) PVD (peripheral vascular disease) (Chronic) Lumbar radiculopathy (Acute) Anxiety (Chronic) COPD (chronic obstructive pulmonary disease) (Chronic) Atrial fibrillation, chronic (Chronic) HTN (hypertension) (Chronic) Claudication of left lower extremity (Chronic) Pulmonary emphysema (Chronic) PMR (polymyalgia rheumatica) (Chronic) Medical History B12 deficiency Elevated serum creatinine COVID-19 Hx of chronic cholecystitis Hx of carpal tunnel syndrome R side Dense breasts 2019. Category C. Normal mammogram. Dysuria (~10/2018) Limited range of motion of shoulder R sided. 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 + HR HPV beginning 2003. 2013 Pap Nl/HPV Neg 2014 Pap Nl/HPV + 2015 Pap Nl/HPV + ( Neg HPV 16 & 18) 2017 Pap Nl/HPV Neg 2020. Pap Nl/HPV Neg. Recommended stop screening paps. Surgical History History of cholecystectomy Hx laparoscopic cholecystectomy (~12/30/19) H/O: pt. denies, pt. states one child was born vaginally S/P cataract surgery S/P tubal ligation Social History Smoking/Tobacco Use Status: Former Tobacco Use Quit Date: 09/21/06 Tobacco: How many years used: 30 Smoking risk assessment performed?: Yes Alcohol Intake: current Alcohol Intake frequency: holidays/special occasions only Alcohol type: wine and hard liquor Drug use: Never Substance use type: does not use Details: alcohol: t-7 Household members: none and other Details: Lives alone at [facility]. D x20 years Housing: apartment Number of Children: 5 number of grandchildren: 3 current occupation: Retired with 50 years [employer] Pets and animals: Yes (Jose Currie) Pets and animals: dog(s) Sexually active: No Current gender identity: female Do you feel safe at home: Yes Do you feel safe in your relationship?: Yes Additional Social history: Son-Arron. 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 GC - Bhargav 24, Naeem 20, Pavithra 21. Female Reproductive History Menstrual Menopause type: natural History History 6 Para Hx # Term Pregnancies 5 Multiple births Hx # Pregnancies Ectopic pregnancies AB induced Hx Number of Living Children AB spontaneous
--- NOTE | 2023-02-03 12:59 | PT.INIE ---
PT Notes Visit Reasons: Acute respiratory failure with hypoxemia and hyper Physical Therapy Inpatient Initial Evaluation Date: 02/03/2023 Referring Doctor: Don Gomes MD PT Orders: PT CONSULT: Exacerbation Chronic Cond Precautions: Fall. Standard. Activity as tolerated. Patient Profile/Admitting Diagnosis: Patient is an 82-year-old female who presented to the ED on 02/03/2023 due to extreme shortness of breath. Patient was admitted for management of acute respiratory failure with hypoxia and hypercarbia, COPD execerbation, CHf exacerbation, elevated troponin, ILD/PF, UTI, AD, HTN, and PMR. PMHX: All Active Problems (Updated 02/03/23 @ 06:18 by Don Gomes) UTI (urinary tract infection) (Acute) Elevated troponin level not due to acute coronary syndrome (Acute) Acute respiratory failure with hypoxia and hypercarbia (Acute) Acute exacerbation of chronic obstructive pulmonary disease (COPD) (Acute) Acute exacerbation of congestive heart failure (Acute) Raynauds disease (Acute) Lower extremity edema (Acute) Weight loss (Acute) ILD (interstitial lung disease) (Chronic) Personal history of nicotine dependence (Acute) Abnormal chest x-ray (Acute) Pain, foot (Acute) Nail dystrophy (Acute) Corns and callosities (Acute) Diastolic heart failure (Acute) Dyspnea (Acute) Tachycardia (Acute) Pre-diabetes (Acute) PVD (peripheral vascular disease) (Chronic) Lumbar radiculopathy (Acute) Anxiety (Chronic) COPD (chronic obstructive pulmonary disease) (Chronic) Atrial fibrillation, chronic (Chronic) HTN (hypertension) (Chronic) Claudication of left lower extremity (Chronic) Pulmonary emphysema (Chronic) PMR (polymyalgia rheumatica) (Chronic) Medical History B12 deficiency Elevated serum creatinine COVID-19 Hx of chronic cholecystitis Hx of carpal tunnel syndrome R sideDense breasts 2019. Category C. Normal mammogram. Dysuria (~10/2018) Limited range of motion of shoulder R sided. 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 + HR HPV beginning 2003. 2013 Pap Nl/HPV Neg 2014 Pap Nl/HPV + 2016 Pap Nl/HPV + ( Neg HPV 16 & 18) 2017 Pap Nl/HPV Neg 2020. Pap Nl/HPV Neg. Recommended stop screening paps. Surgical History History of cholecystectomy Hx laparoscopic cholecystectomy (~12/30/19) H/O: pt. denies, pt. states one child was born vaginally S/P cataract surgery S/P tubal ligation Social History/Home Situation: Lives alone in a private room with two steps to enter and a rail on the L side. Modified independent with use FWW outdoors. P Equipment Owned/DME: FWW Subjective: Patient state that she never uses her walker indoors, instead she cruises on furniture to be safe. Sister and daughter are good supports. Objective: General Observation: Resting in bed. Telemetry monitoring in place. Mental Status: Alert and oriented as to person, place, time, and purpose. Able to pay attention, focus, and respond appropriately. Pain: Reported minimal pain in right shoulder that she has had for quite a while Vital Signs: Monitored on telemetry; No abnormla reading during therapy ROM: Right Upper Extremity: Shoulder Flexion WFL. Shoulder abduction WFL. Elbow flexion WFL. Wrist flexion WFL. Functional opening and closing of hand WFL. Left Upper Extremity: Shoulder Flexion WFL. Shoulder abduction WFL. Elbow flexion WFL. Wrist flexion WFL. Functional opening and closing of hand WFL. Right Lower Extremity: Hip flexion WFL. Hip abduction WFL. Knee flexion WFL. Ankle dorsiflexion to neutral only. Ankle plantarflexion WFL. Left Lower Extremity: Hip flexion WFL. Hip abduction WFL. Knee flexion WFL. Ankle dorsiflexion to neutral only. Ankle plantarflexion WFL. Strength: Right Upper Extremity: Shoulder flexors 4/5. Shoulder abductors 4/5. Elbow flexors 5/5. Elbow extensors 5/5. Systems Integration Analyst strong. Left Upper Extremity: Shoulder flexors 4/5. Shoulder abductors 4/5. Elbow flexors 5/5. Elbow extensors 5/5. Systems Integration Analyst strong. Right Lower Extremity: Hip flexors 4-/5. Hip abductors 4-/5. Knee flexors 4/5. Knee extensors 4-/5. Ankle dorsiflexors 3-/5. Ankle plantarflexors 4-/5. Left Lower Extremity: Hip flexors 4-/5. Hip abductors 4-/5. Knee flexors 4/5. Knee extensors 4-/5. Ankle dorsiflexors 3-/5. Ankle plantarflexors 4-/5. Bed Mobility/Transfers: Rolling supervision Supine to sit supervision Sit to supine supervision Sit to stand supervision Stand to sit supervision Bed to reclining chair stand by assist Reclining chair to bed stand by assist Gait: Facilitated safe and correct performance of level surface ambulation covering a distance of 40 feet using front wheeled walker with contact-guard assist step through heel toe gait pattern with minimal shortness of breath that resolved with rest. Minimal cueing provided due to preexisting visual acuity impairment. Balance: Static Sitting: Normal Dynamic Sitting: Normal Static Standing: Fair Dynamic Standing: Fair Special Tests: Mobility Limitations Standardized Measure [facility]-P[facility] 6 clicks Basic Mobility Inpatient Short Form: Raw Score: 22 CMS Score: 21% deficit 4-Stage balance Test: Feet together 10 seonds Semitandem less than 10 seonds Full tandem deferred One-legged stance deferred Informed Consent/Education: Patient was instructed in purpose of PT consult and plan of care. Agreeable to proceed with established PT POC to achieve personal goals. Assessment: Patient presents with clinical signs and symptoms consistent with current/admitting diagnoses that have resulted to mobility limitations, gait instability, generalized weakness, and overall ADL decline as demonstrated by the following impairment level findings: 1. Decreased strength to B UE/LE major muscle groups 2. Impaired sitting/standing balance 3. Impaired activity tolerance 4. Shortness of breath Impairments are contributing to the following functional limitations: 1. Difficulty with ambulation without assistive device and physical assistance 2. Increased completion time for mobility ADL performance 3. Increased risk for falls Patient is assessed as a 28961 moderate complexity based on the following: History: 82-year-old female with past medical history as indicated above Examination: Demonstrable impairment in strength, balance, and mobility level with underlying impairments and functional limitations as exhibited above as well as deficit score of 21% utilizing the [facility] Mobility Inpatient Short Form Presentation: Stable Decision Makin moderate complexity Goals: Goals X1 week 1. Supine-Sit independent 2. Sit-Supine independent 3. Sit-Stand independent 4. Stand-Sit independent with FWW 5. Bed-Chair independent with FWW 6. Chair-Bed independent with FWW 7. Independent gait on level surface with use of FWW for at least 150 feet without report of pain nor dyspnea 8. Independent stair negotiation while holding onto 1 rails for at least 3 steps without report of pain nor dyspnea 9. Independent with home exercise program 10. Good static and dynamic standing balance/tolerance Plan of Care/Treatment Plan: 1-2x/day, 7 days/week x 1 week. Plan of care has been reviewed with the FURNACE UTILITY OPERATOR providing the service under Physical Therapy direction. Initiate Physical Therapy intervention for pain management as needed, strengthening, bed mobility, transfers, gait, stairs, balance training, and use of assistive device. DISCHARGE RECOMMENDATIONS: [] Home with no services [] [X] Home with services. Patient will benefit from home health PT services in order to progress mobility level using least restrictive assistive ambulatory device, assess home safety, identify additional equipment needs, and establish a functional maintenance program that will increase ability of patient to remain at home. [] Home with outpatient PT [] [] SNF for continued rehabilitation [] [] Weapons Engineer Care [] [] SNF versus LTC based on ability to participate and progress [] TREATMENT CODE/TIME: 36101 x 23 minutes for 1 unit beginning at 12:59 PM. Thank you for the opportunity to participate in the care of this patient. Radha Bryant PT, DPT, CLT [facility] [place], [place]
[2023-02-03] MEDS: Simvastatin 20 MG TAB PO (20:08)
[2023-02-04] VITALS (12 sets, daily range): BP systolic 137–163; BP diastolic 67–84; PULSE 66–77; RESP 2–22; TEMP 36.2–37.2; O2SAT 92–97
[2023-02-04] MEDS: methylPREDNISolone SUCC 125 MG VIAL 80 MG IVP ×2 (01:29→10:05)
[2023-02-04] MEDS: cefTRIAXone 1 GM/50 ML BAG IVPB (03:50)
[2023-02-04] MEDS: Albuterol/Ipratropium 3 ML UPD VIAL UPD ×3 (08:03→19:34)
[2023-02-04 08:04] LABS: Abs Immature Grans 0.06 10^3/uL (0.0-0.06); Absolute Basophil Count 0.01 10^3/uL (0.0-0.2); Absolute Eosinophil Count 0.01 10^3/uL (0.0-0.7); Absolute Lymphocyte Count 0.31 10^3/uL (1.2-3.4); Absolute Monocyte Count 0.37 10^3/uL (0.1-0.8); Absolute Neutrophil Count 7.71 10^3/uL (1.2-6.7); Basophils % 0.1; Eosinophils % 0.1; HCT 36.4 % (36.0-46.0); HGB 11.3 g/dL (11.2-15.7); Immature Grans % 0.7; Lymphocytes % 3.7; MCH 30.7 pg (27.0-33.0); MCV 99 fL (80-95); MPV 9.3 fL (8.0-11.0); Monocytes % 4.4; Platelet Count 235 10^3/uL (130-400); RBC 3.68 10^6/uL (3.93-5.22); RDW 15.3 % (11.7-14.6); RDW-SD 55.6 fL; WBC 8.47 10^3/uL (4.4-10.8)
[2023-02-04] MEDS: Potassium Chloride 10 MEQ CAPCR PO (08:11)
[2023-02-04] MEDS: Furosemide 40 MG/4 ML VIAL 60 MG IVP (08:13)
[2023-02-04] MEDS: Apixaban 5 MG TAB PO (08:13)
[2023-02-04] MEDS: Metoprolol 12.5 MG TAB PO ×2 (08:13→20:02)
[2023-02-04 08:25] LABS: Anion Gap 12.5 mmol/L (3-11); BUN 30 mg/dL (7-18); CO2 27.5 mmol/L (21.0-32.0); CREATININE 1.9 mg/dL (0.55-1.02); Calcium 9.5 mg/dL (8.5-10.1); Chloride 99 mmol/L (98-107); Digoxin 1.75 ng/mL (0.90-2.00); Estimated GFR 26.36 (mL/min/1.73m2); Glucose 146 mg/dL (74-106); Magnesium 2.4 mg/dL (1.8-2.4); Sodium 139 mmol/L (136-145)
[2023-02-04] MEDS: LORazepam 0.5 MG TAB PO ×2 (10:07→21:26)
--- NOTE | 2023-02-04 10:31 | PGE_ITS ---
Date of Service Date of service: 02/04/23 Time of Service: 10:31 Assessment and Plan Assessment and plan (1) Acute respiratory failure with hypoxia and hypercarbia: Start date: 02/03/23 Status: Acute Assessment and plan: Remains w/o further Oxygen requirement this morning again, will continue to monitor History of ILD Continue IV Solu-Medrol and taper She was not previously on home oxygen therapy. She is a DNR/DNI Continue aggressive pulmonary toilet. (2) Acute exacerbation of chronic obstructive pulmonary disease (COPD): Start date: 02/03/23 Status: Acute Assessment and plan: As above (3) Acute exacerbation of congestive heart failure: Start date: 02/03/23 Status: Acute Assessment and plan: Will Continue twice daily IV Lasix and taper as the patient improves BMP and Mg in AM. Qualifiers: Heart failure type: diastolic Qualified Code(s): I50.33 - Acute on chronic diastolic (congestive) heart failure (4) Elevated troponin level not due to acute coronary syndrome: Start date: 02/03/23 Status: Acute Assessment and plan: Troponin values stabilized max 91 then 83; repeat if symptomatic (5) ILD (interstitial lung disease): Status: Chronic Assessment and plan: History of pulmonary fibrosis but refuses further evaluation. Considering f ollow-up or consultation with cardiology and pulmonology as appropriate. (6) UTI (urinary tract infection): Start date: 02/03/23 Status: Acute Assessment and plan: Will continue on Rocephin until urine culture and sensitivity results allows for antibiotic with a narrow spectrum, considering the possibility for oral therapy blood cultures also pending Urine shows low colony counts, will stop ceftriaxone Qualifiers: Hematuria presence: with hematuria Urinary tract infection type: acute cystitis Qualified Code(s): N30.01 - Acute cystitis with hematuria (7) Atrial fibrillation, chronic: Status: Chronic Assessment and plan: Remains on tele A-fib 72-74 metoprolol Eliquis which will be continued, renal dose adjustement to 2.5 mg BID as per pharmacy consultation. F/U required Digoxin level: 2.16, 2.06, 0.7 today will reinitiate her digoxin; Digoxin restarted at a renal dose of 0.625 mcg as per pharmacy consultation. f/u required and level in 7 days. (8) HTN (hypertension): Status: Chronic Assessment and plan: The patient is still on metoprolol Furosemide held today Qualifiers: Hypertension type: primary hypertension Qualified Code(s): I10 - Essent ial (primary) hypertension (9) PMR (polymyalgia rheumatica): Status: Chronic Assessment and plan: Patient currently is not on steroids , we started methylprednisolone IV for above mentioned diagnosis. Weaning down to 40 IVP BID. Considering prednisone wean at discharge. (10) Contraindication to deep vein thrombosis (DVT) prophylaxis: Status: Acute Assessment and plan: patient on Eliquis for A-Fib (11) Discharge planning issues: Status: Acute Assessment and plan: No need at this time , CM to f/u as patient started asking about placement yesterday. Meeting in progress with CM and family, Discussed with Dr Gray Subjective Subjective Patient reports: no new complaints (Remains anxious about disposition), feels better (decreased SOB while ambulating), tolerating liquids well, tolerating a regular diet, voiding w/o difficulty, flatus, no bowel movement (mentioned stool softners at home ) and shortness of breath; denies diarrhea, blood in stool, nausea, vomiting or fever Exam Narrative Exam Narrative: General: Patient appears appropriate for age, is anxious,is hard of hearing. She is alert and oriented at least to person and place. HEENT: Normocephalic,corrective glasses in place, intact extra-ocular eye movements Neck: Intact ROM Back: No CVA tenderness. Lungs: Clear upper lung bauer, decreased bibasilar breath sounds, unlabored. Heart: Telemetry A-fib 64-71, positive pulse to all ext. Abdomen: Normal contour, soft and nontender to palpation with no palpable hepatosplenomegaly. No guarding or rebound. Bowel sounds present. Urinary: No bladder distention Extremities: +1pitting edema to LE. Fair capillary refill. Skin: Normal color, warm and dry. Neuro: No focal motor deficits. Objective Last Vital Signs Temp 37.0 C 02/04/23 07:35 Pulse 75 02/04/23 08:03 Resp 16 02/04/23 08:03 BP 138/67 02/04/23 07:35 Pulse Ox 94 02/04/23 08:03 Laboratory Results - last 24 hr 02/04/23 02/04/23 07:20 07:20 WBC 8.47 RBC 3.68 L Hgb 11.3 Hct 36.4 MCV 99 H MCH 30.7 MCHC 31.0 L RDW 15.3 H Plt Count 235 MPV 9.3 Immature Gran % 0.7 Neutrophils % 91.0 Lymphocytes % 3.7 Monocytes % 4.4 Eosinophils % 0.1 Basophils % 0.1 Nucleated RBC % 0.0 Absolute Neutrophils 7.71 H Absolute Lymphocytes 0.31 L Absolute Monocytes 0.37 Absolute Eosinophils 0.01 Absolute Basophils 0.01 Sodium 139 Potassium 4.0 Chloride 99 Carbon Dioxide 27.5 Anion Gap 12.5 H BUN 30 H Creatinine 1.9 H Est GFR (CKD-EPI 2020) 26.36 Glucose 146 H Calcium 9.5 Magnesium 2.4 Cancelled Digoxin 1.75 Time Spent with Patient Time Spent with Patient: >50 minutes Time was spent: preparing to see the patient(eg.review tests), ordering medications,tests, procedures, referring, communicating with other health healthcare management consultant, indepentently interpreting results, counseling the patient and care coordination
[2023-02-04] MEDS: Digoxin 0.125 MG TAB 0.0625 MG PO (11:58)
--- NOTE | 2023-02-04 14:13 | PT.INTREAT ---
Date of service: 02/04/23 Time of Service: 11:25 PT Notes Visit Reasons: Acute respiratory failure with hypoxemia and hyper Inpatient Physical Therapy Treatment Note [facility] Date: 02/04/2023 PRECAUTIONS: Fall. Standard. Activity as tolerated. SUBJECTIVE: Stated she is doing well today, glad to take a walk. Gets PT with home health generally. OBJECTIVE: ? PAIN: No complaints of pain offered. Vitals monitored by nursing throughout session. Therapeutic Activities ([id number]): Direct one-on-one instruction in dynamic activities to improve functional performance. ? BED MOBILITY/TRANSFERS? Rolling L/R: SBA Supine-sit: SBA ? Sit-supine: SBA? Sit-stand: CGA? Stand-sit: CGA ? Provided skilled cues and instruction on performance and technique throughout. GAIT? Assistive Device: FWW ? Weight bearing: Full Assist: CGA? Distance:? 70', did have to stop for one short standing break during ambulation, due to brief SOB.? Provided skilled instruction in proper exercise performance Provided skilled manual cues to facilitate proper muscle recruitment and/or form ASSESSMENT:? Tolerated ambulation well. Should try stairs prior to discharge due to having 2 steps to get into her home. PLAN: Continue with current plan of care, advancing activities as able to tolerated. Focus on functional mobility and strengthening. TREATMENT CODE/TIME: [id number], 11:25 to 11:45 (20 minutes)
[2023-02-04] MEDS: Apixaban 2.5 MG TAB PO (20:02)
[2023-02-04] MEDS: Acetaminophen 325 MG TAB PO (20:02)
[2023-02-04] MEDS: Simvastatin 20 MG TAB PO (20:02)
[2023-02-04] MEDS: Melatonin 3 MG TAB PO (21:26)
[2023-02-05] VITALS (10 sets, daily range): BP systolic 144–171; BP diastolic 50–94; PULSE 65–100; RESP 2–20; TEMP 36–37; O2SAT 93–99
[2023-02-05] MEDS: Albuterol/Ipratropium 3 ML UPD VIAL UPD ×2 (07:44→13:46)
[2023-02-05] MEDS: methylPREDNISolone SUCC 40 MG VIAL IVP (08:19)
[2023-02-05] MEDS: Metoprolol 12.5 MG TAB PO ×2 (08:19→20:07)
[2023-02-05] MEDS: Apixaban 2.5 MG TAB PO ×2 (08:19→20:07)
[2023-02-05] MEDS: Potassium Chloride 10 MEQ CAPCR PO (08:19)
[2023-02-05] MEDS: Normal Saline Flush 10 ML SYR IVP (08:20)
--- NOTE | 2023-02-05 10:45 | PDOC.CMPRO ---
Date of service: 02/05/23 Time of Service: 10:45 Care Management Progress Note Progress Note Text Progress Note Text: S/O:Rehan was sitting on the side of the bed when MENDOZA met with her. She appeared anxious and seemed a bit suspicious with her questions. She asked every person who entered the room who they were and what they needed. Rehan is visually impaired and that may well be responsible for her caution with visitors to her room. Rehan has been failing at home according to her [id number] Jean Claude. Jean Claude and her daughter Pavithra are seeking guardianship for Rehan. Both Rehan and Jean Claude have requested that Rehan be referred to [facility] for short term rehab with a plan for halfway care. Pavithra has worked at & for 5 years and Rehan has been a patient there before and loves the facility. MENDOZA was notified today that [facility] is closed to admissions as of 3pm this afternoon. It is due to staffing and the upcoming holidays.It is unclear whether or not Rehan will be able to transfer as the referral was sent and accepted prior to the decision to close admissions. MENDOZA has reached out to the build automation engineer for clarification. jean claude asked MENDOZA to look over her application for voluntary guardianship, which appeared complete. MENDOZA also provided Jean Claude with a software security consultant Medicaid application and encouraged her to complete as much as possible and send it in. With LTM, the coverage can be retroactive to the date received and this might be helpful with Rehan transitioning from short term rehab to software security consultant care. A: Rehan is an 82 year old woman admitted on 02/03/23 with acute respiratory failure P:Anticipate Rehan will be transferred to a detention facility for short term rehab prior to returning home or transitioning to halfway care. A referral was sent to [facility] but they closed to admissions this afternoon. If Rehan is unable to go to [facility], additional referrals will be sent tomorrow. Rehan will follow up with facility providers and plan of care. Transport will be determined by disposition. CM will follow and continue to assess for discharge planning concerns.
--- NOTE | 2023-02-05 13:29 | PT.INTREAT ---
Date of service: 02/05/23 Time of Service: 11:42 PT Notes Visit Reasons: Acute respiratory failure with hypoxemia and hyper Inpatient Physical Therapy Treatment Note [facility] Date: 02/05/23 PRECAUTIONS: Fall, standard, activity as tolerated. SUBJECTIVE: Patient reports feeling good. OBJECTIVE: Supine in bed, agreeable to therapy.? PAIN: none reported VITALS: monitored by nursing staff ? ? ? BED MOBILITY/TRANSFERS? Rolling L/R: not assessed Supine-sit: modified independent with bilateral side rails.? Sit-supine: ?modified independent with bilateral side rails. ? Sit-stand: CGA? Stand-sit: CGA? Bed-Chair: CGA ? Chair-bed: CGA ? Therapeutic Exercises ([id number]): Direct one-on-one instruction in therapeutic exercises to develop strength, endurance, range of motion and flexibility. Ambulation ? Assistive Device: FWW? Weight bearing: full Assist: CGA ? Distance:? 100 feet AFTERNOON 200 feet ? Deviation: Patient becomes noticeably short of breath, shortened step length, slow and steady gait pattern. Stairs: Patient ascends and descends 4 six inch stairs and 6 four inch steps, CGA with bilateral railings. ? Provided skilled instruction in proper exercise performance Provided skilled manual cues to facilitate proper muscle recruitment and/or form. ASSESSMENT:? Patient tolerates therapy well, recovers quickly with standing rest from breathlessness. PLAN: Continue global strengthening per plan of care until patient is medically cleared for discharge. TREATMENT CODE/TIME: 21 minutes beginning at 11:42 and 10 minutes beginning at 16:43 for a total of 31 minutes today.
[2023-02-05] MEDS: Acetaminophen 325 MG TAB PO (16:38)
--- NOTE | 2023-02-05 18:11 | W.PM.PROGNOT ---
Date of Service Date of service: 02/05/23 Time of Service: 18:11 Assessment and Plan Assessment and plan (1) Acute respiratory failure with hypoxia and hypercarbia: Start date: 02/03/23 Status: Acute Assessment and plan: Remains w/o further Oxygen requirement this morning again, will continue to monitor History of ILD Continue IV Solu-Medrol and taper She was not previously on home oxygen therapy. She is a DNR/DNI Continue aggressive pulmonary toilet. (2) Acute exacerbation of chronic obstructive pulmonary disease (COPD): Start date: 02/03/23 Status: Acute Assessment and plan: As above (3) Acute exacerbation of congestive heart failure: Start date: 02/03/23 Status: Acute Assessment and plan: Will Continue twice daily IV Lasix and taper as the patient improves, held for Creat 1.9 from 1.5; oral at discharge BMP and Mg in AM. Qualifiers: Heart failure type: diastolic Qualified Code(s): I50.33 - Acute on chronic diastolic (congestive) heart failure (4) Elevated troponin level not due to acute coronary syndrome: Start date: 02/03/23 Status: Acute Assessment and plan: Troponin values stabilized max 91 then 83; repeat if symptomatic (5) ILD (interstitial lung disease): Status: Chronic Assessment and plan: History of pulmonary fibrosis but refuses further evaluation. Considering follow-up or consultation with cardiology and pulmonology as appropriate. (6) UTI (urinary tract infection): Start date: 02/03/23 Status: Acute Assessment and plan: Will continue on Rocephin until urine culture and sensitivity results allows for antibiotic with a narrow spectrum, considering the possibility for oral therapy blood cultures also pending Urine shows low colony counts, will stop ceftriaxone Qualifiers: Urinary tract infection type: acute cystitis Hematuria presence: with hematuria Qualified Code(s): N30.01 - Acute cystitis with hematuria (7) Atrial fibrillation, chronic: Status: Chronic Assessment and plan: Remains on tele A-fib 72-74 metoprolol Eliquis which will be continued, renal dose adjustement to 2.5 mg BID as per pharmacy consultation. F/U required Digoxin level: 2.16, 2.06, 0.7 today will reinitiate her digoxin; Digoxin restarted at a renal dose of 0.625 mcg as per pharmacy consultation. f/u required and level in 7 days. (8) HTN (hypertension): Status: Chronic Assessment and plan: The patient is still on metoprolol Furosemide held today Qualifiers: Hypertension type: primary hypertension Qualified Code(s): I10 - Essential (primary) hypertension (9) PMR (polymyalgia rheumatica): Status: Chronic Assessment and plan: Patient currently is not on steroids , we started methylprednisolone IV for above mentioned diagnosis. Weaning down to 40 IVP BID. Considering prednisone wean at discharge. (10) Contraindication to deep vein thrombosis (DVT) prophylaxis: Status: Acute Assessment and plan: patient on Eliquis for A-Fib (11) Discharge planning issues: Status: Acute Assessment and plan: No need at this time , CM to f/u as patient started asking about placement yesterday. Meeting in progress with CM and family, Discussed with Dr Mcdermott Subjective Subjective Patient reports: no new complaints, feels better, tolerating liquids well, tolerating a regular diet, flatus and no bowel movement; denies diarrhea, nausea, vomiting, shortness of breath or fever Exam Narrative Exam Narrative: General: Patient appears appropriate for age, is anxious,is hard of hearing. She is alert and oriented at least to person and place, not jeffrey on time. HEENT: Normocephalic,corrective glasses in place, intact extra-ocular eye movements Neck: Intact ROM Back: No CVA tenderness. Lungs: Clear upper lung bauer, decreased bibasilar breath sounds, unlabored at rest , better on exertion Heart: Telemetry A-fib controlled, positive pulse to all ext. Abdomen: Normal contour, soft and nontender to palpation with no palpable hepatosplenomegaly. No guarding or rebound. Bowel sounds present. Urinary: No bladder distention Extremities: +1pitting edema to LE. Fair capillary refill. Skin: Normal color, warm and dry. Neuro: No focal motor deficits. Objective Last Vital Signs Temp 37.0 C 02/05/23 15:43 Pulse 73 02/05/23 15:43 Resp 18 02/05/23 15:43 BP 144/67 H 02/05/23 15:43 Pulse Ox 97 02/05/23 15:43 Time Spent with Patient Time Spent with Patient: >50 minutes Time was spent: preparing to see the patient(eg.review tests), ordering medications,tests, procedures, referring, communicating with other health healthcare administrative assistant, indepentently interpreting results, counseling the patient and care coordination
[2023-02-05] MEDS: Melatonin 3 MG TAB PO (20:07)
[2023-02-05] MEDS: Simvastatin 20 MG TAB PO (20:07)
[2023-02-05] MEDS: methylPREDNISolone SUCC 40 MG VIAL 20 MG IVP (20:07)
[2023-02-05] MEDS: Docusate Sodium 100 MG CAP PO (20:07)
[2023-02-06] MEDS: LORazepam 0.5 MG TAB PO (01:52)
[2023-02-06] MEDS: Acetaminophen 325 MG TAB PO (01:52)
[2023-02-06 03:24] VITALS: BP 148/85; PULSE 67; RESP 18; TEMP 36.2; O2SAT 99
[2023-02-06 07:26] LABS: Absolute Lymphocyte Count 0.54 10^3/uL (1.2-3.4); Absolute Monocyte Count 0.58 10^3/uL (0.1-0.8); Absolute Neutrophil Count 7.92 10^3/uL (1.2-6.7); HCT 39.8 % (36.0-46.0); HGB 12.3 g/dL (11.2-15.7); Immature Grans % 1.1; Lymphocytes % 5.9; MCH 31.1 pg (27.0-33.0); MCHC 30.9 % (32.0-36.0); MCV 101 fL (80-95); MPV 9.4 fL (8.0-11.0); Monocytes % 6.3; Neutrophils % 86.7; Platelet Count 245 10^3/uL (130-400); RBC 3.96 10^6/uL (3.93-5.22); WBC 9.14 10^3/uL (4.4-10.8)
[2023-02-06 07:51] LABS: Anion Gap 8.2 mmol/L (3-11); BUN 42 mg/dL (7-18); CO2 29.8 mmol/L (21.0-32.0); CREATININE 1.8 mg/dL (0.55-1.02); Calcium 9.2 mg/dL (8.5-10.1); Chloride 101 mmol/L (98-107); Estimated GFR 28.13 (mL/min/1.73m2); Glucose 123 mg/dL (74-106); Magnesium 2.6 mg/dL (1.8-2.4); Potassium 4.4 mmol/L (3.5-5.1); Sodium 139 mmol/L (136-145)
[2023-02-06 08:16] VITALS: BP 160/81; PULSE 76; RESP 18; TEMP 36.4; O2SAT 92
[2023-02-06 08:32] VITALS: PULSE 61; RESP 16; RESP 9; O2SAT 97
[2023-02-06] MEDS: Albuterol/Ipratropium 3 ML UPD VIAL UPD (08:32)
--- NOTE | 2023-02-06 08:40 | RESPIRATORY ---
RT Assessment Start: 02/03/23 04:39 Freq: .q shift and prn Status: Active Protocol: Document 02/06/23 08:37 RT.MACHO (Rec: 02/06/23 08:40 RT.MACHO [id number]) RT Assessment Pulmonary History Pulmonary History COPD,Pulmonary Fibrosis Smoking History Smoking/Tobacco Use Status Former Tobacco Use Tobacco: How many years used 30 Quit Date 09/21/06 Tobacco Type cigarettes Packs per Day 1 Cigarettes per Day 25 OXYGEN HISTORY: CPAP Settings N/A BIPAP Settings N/A Trilogy/AVAPS Settings N/A DME/Compliance DME N/A Compliance N/A Current Respiratory Symptoms Current Respiratory Symptoms Shortness of breath Activity Activity Level Very active, takes walks everyday until recently Respiratory Breath Sounds Breath Sounds Any abnormal sounds, decreased breath sounds Response No change Pulse Rate <100 Respiratory Rate <18 Shortness of Breath On exertion Respiratory Therapy Score Total 2 Assessment and Plan Note No indication for scheduled bronchodilators/continue home regimen, Continue with IS/ Acapella use while awake
[2023-02-06 08:41] VITALS: PULSE 75
[2023-02-06] MEDS: Metoprolol 12.5 MG TAB PO (08:56)
[2023-02-06] MEDS: Digoxin 0.125 MG TAB 0.0625 MG PO (08:56)
[2023-02-06] MEDS: Normal Saline Flush 10 ML SYR IVP (08:57)
[2023-02-06] MEDS: Apixaban 2.5 MG TAB PO (08:57)
[2023-02-06] MEDS: Potassium Chloride 10 MEQ CAPCR PO (08:57)
[2023-02-06] MEDS: methylPREDNISolone SUCC 40 MG VIAL 20 MG IVP (08:58)
[2023-02-06] MEDS: Polyethylene Glycol 3350 17 GM PACKET PO (08:58)
[2023-02-06] MEDS: Docusate Sodium 100 MG CAP PO (08:58)
--- NOTE | 2023-02-06 10:00 | DSE_ITS ---
Date of service: 02/06/23 Time of Service: 10:00 DS: Diagnosis Discharge Diagnosis (1) Acute respiratory failure with hypoxia and hypercarbia: Status: Acute (2) Acute exacerbation of chronic obstructive pulmonary disease (COPD): Status: Acute (3) Acute exacerbation of congestive heart failure: Status: Acute (4) Elevated troponin level not due to acute coronary syndrome: Status: Acute (5) ILD (interstitial lung disease): Status: Chronic (6) UTI (urinary tract infection): Status: Acute (7) Atrial fibrillation, chronic: Status: Chronic (8) HTN (hypertension): Status: Chronic (9) PMR (polymyalgia rheumatica): Status: Chronic (10) Contraindication to deep vein thrombosis (DVT) prophylaxis: Status: Acute (11) Discharge planning issues: Status: Acute Discharge Plan Disposition Patient Disposition: Home W/Home Health Services Condition: Improving Discharge Details Reason For Visit: Acute respiratory failure with hypoxemia and hyper Admit Date/Time: 02/03/23 03:21 Admit Provider: Don Gomes Attending Provider: Don Gomes Primary Care Provider: Raquel Martin Hospital Course Hospital Course: This is 82-year-old female patient with a past history of pulmonary fibrosis and diastolic CHF with preserved ejection fraction, 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 She is not home oxygen dependent but had oxygen requirements during EMS transfer and in the ED; could not be weaned off oxygen therapy. She had poor air movement, was treated with Solu-Medrol and IV Lasix for CHF; improved post-treatment. Her BNP was elevated from her baseline but not doubled. She is due for an echocardiogram update later this month with the last echocardiogram revealing preserved left ventricular ejection fraction. She was on Lasix dose which she has not increased though she was given permission to increase because of her PND, does have daily peripheral edema. She was given a dose of doxycycline but her urine also had possible UTI by lab not having symptoms other than frequency with her diuretic, follow-up on culture and sensitivity showed not UTI and natalee tment was stopped. She did not appear toxic but was not at baseline with continued oxygen needs though she was less dyspneic. She does have a history of increased coughing but was not able to see change in sputum because of decreased vision. She denied any fever or chills. He had, no GI symptoms. The patient did have advised to further evaluate her pulmonary status but refused further evaluation. She does have a history of chronic atrial fibrillation but had no chest pain though her troponin was slightly elevated which was thought to be secondary to right ventricular strain with her exacerbation of CHF and respiratory status. Patient remains a DNR/DNI. She was admitted to the medical surgical services as an inpatient with telemetry for evaluation and mangement of heart failure with preserved ejection fraction and fluid volume overload, dyspnea. During the stay the patient was found to have above normal digoxin level and the dose was adjusted for her renal function and she became therapeutic; the patient will need a follow-up as per the discharge facility with level due around the 02/10/2023; eliquis was also adjusted for renal function and a follow-up is also needed as per the discharge facility, with BMP due 02/10/2023. The patient was on telemetry and was in a controlled atrial fibrillation rhythm during the stay. The patient will continue a taper of oral prednisone upon discharge. Physicla therapy saw the patient and recommended to continue with current plan of care, advancing activities as able to tolerated. Focus on functional mobility and strengthening. Home Meds and New Rx's Prescriptions: New prednisone 20 mg tablet 40 mg PO DAILY AM Qty: 15 0RF Rx Instructions: Prednisone Taper: Take Prednisone 40 mg orally daily for 3 days, then decrease the dose taken by 10 mg every 3 days until the end of the supply furosemide 40 mg Tablet 40 mg PO DAILY Qty: 30 0RF polyethylene glycol 3350 17 gram Powder In Packet 17 g PO DAILY PRN PRN (Reason: Constipation) Qty: 30 0RF melatonin 3 mg Tablet 3 mg PO HS Qty: 30 0RF lorazepam 0.5 mg Tablet 0.5 mg PO BID PRN PRN (Reason: Anxiety) Qty: 60 0RF digoxin 125 mcg (0.125 mg) Tablet 0.0625 mg PO Q48H Qty: 7 0RF Eliquis 2.5 mg Tablet 2.5 mg PO BID Qty: 14 0RF Continued acetaminophen [Tylenol] 325 mg tablet 325 mg PO Q6H PRN triamcinolone acetonide 0.1 % cream 1 applic topical BID Hold Instructions: defered mecobalamin (vitamin B12) 10,000 mcg recon soln 1,000 mcg subcut [id number] albuterol sulfate [Ventolin HFA] 90 mcg/actuation HFA aerosol inhaler 2 puff inhalation Q6H PRN potassium chloride 10 mEq capsule, extended release 10 meq PO DAILY albuterol sulfate 2.5 mg /3 mL (0.083 %) solution for nebulization 2.5 mg inhalation .Q 4-6H PRN tiotropium bromide [Spiriva with HandiHaler] 18 mcg capsule, w/inhalation device 18 mcg Inhalation DAILY metoprolol tartrate 25 mg tablet 12.5 mg PO BID Patient Comments: ordered by PCP furosemide 40 mg tablet 40 mg PO DAILY Qty: 90 3RF simvastatin 20 mg tablet 20 mg PO DAILY Qty: 14 0RF lorazepam 0.5 mg tablet 0.5 mg PO BID PRN (Reason: anxiety) Patient Comments: TAKE ONE TABLET BY MOUTH TWICE A DAY NEEDED FOR SEVERE ANXIETY Discontinued digoxin [Digox] 125 mcg (0.125 mg) tablet 125 mcg PO DAILY Eliquis 5 mg tablet 5 mg PO BID Qty: 180 3RF Discharge Instructions Activity:: Activity as Tolerated Equipment/Supplies:: Walker Diet:: As Tolerated Discharge Orders Discharge Orders: Discharge Order (Routine); Ordered 02/06/23 Ordered By: Shantelle Andino DS: Summary Time Spent with Patient providing and/or coordinating discharge services: Greater than 30 minutes Status at Discharge Functional status at discharge: uses cane/walker Overall status at discharge: patient is back to baseline Mental Status: mental status grossly normal Speech and Movement: speech and movement normal Mood: congruent mood Affect: normal affect Exam Narrative Exam Narrative: General: Patient appears appropriate for age, is anxious,is hard of hearing. She is alert and oriented at least to person and place, not jeffrey on time. HEENT: Normocephalic,corrective glasses in place, intact extra-ocular eye movements Neck: Intact ROM Back: No CVA tenderness. Lungs: Clear upper lung bauer, decreased bibasilar breath sounds, unlabored at rest , better on exertion Heart: Telemetry A-fib controlled, positive pulse to all ext. Abdomen: Normal contour, soft and nontender to palpation with no palpable hepatosplenomegaly. No guarding or rebound. Bowel sounds present. Urinary: No bladder distention Extremities: +1pitting edema to LE. Fair capillary refill. Skin: Normal color, warm and dry. Neuro: No focal motor deficits. Psych Mental Status: mental status grossly normal Speech and Movement: speech and movement normal Mood: congruent mood Affect: normal affect DS: Data Vitals/I&O Vitals and I&O: Vital Signs Temperature 36.4 C L 02/06/23 08:16 Temperature Source Tympanic 02/06/23 08:16 Pulse 75 02/06/23 08:41 Pulse Rhythm Irregular 02/05/23 22:59 Respiratory Rate 16 02/06/23 08:32 Respiratory Effort Normal, Non-Labored 02/05/23 22:59 Respiratory Depth Normal 02/05/23 22:59 Respiratory Pattern Normal 02/05/23 22:59 Blood Pressure 160/81 H 02/06/23 08:16 Pulse Oximetry 97 02/06/23 08:32 Oxygen Delivery Method Room Air 02/06/23 08:32 Oxygen Flow Rate 0 02/06/23 08:32 Pain Level 0 02/06/23 08:16 Comment Nurse notified about BP. 02/06/23 08:16 Intake & Output 02/05/23 02/05/23 02/06/23 11:59 23:59 11:59 Intake Total 360 / 360 300 / 300 Output Total 150 / 150 Balance 360 / 210 -150 / 210 300 / 300 Intake: Oral 360 / 360 300 / 300 Output: Urine 150 / 150 Other: Urine Color Yellow Yellow Urine Appearance Clear Clear Clear Comment unmeasured void voids independently in toilet Voiding Methods Bedside Commode Toilet Data Completed and Pending Labs on day of discharge: Labs from last 24 hours 02/06/23 06:46 WBC 9.14 RBC 3.96 Hgb 12.3 Hct 39.8 MCV 101 H MCH 31.1 MCHC 30.9 L RDW 15.0 H Plt Count 245 MPV 9.4 Immature Gran % 1.1 Neutrophils % 86.7 Lymphocytes % 5.9 Monocytes % 6.3 Eosinophils % 0.0 Basophils % 0.0 Nucleated RBC % 0.0 Absolute Neutrophils 7.92 H Absolute Lymphocytes 0.54 L Absolute Monocytes 0.58 Absolute Eosinophils 0.00 Absolute Basophils 0.00 Sodium 139 Potassium 4.4 Chloride 101 Carbon Dioxide 29.8 Anion Gap 8.2 BUN 42 H Creatinine 1.8 H Est GFR (CKD-EPI 2020) 28.13 Glucose 123 H Calcium 9.2 Magnesium 2.6 H Preliminary micro results at discharge 02/03/23 01:30 Blood Culture - Preliminary Blood NO GROWTH 72 HOURS 02/03/23 01:22 Blood Culture - Preliminary Blood NO GROWTH 72 HOURS PFSH All Active Problems (Updated 02/03/23 @ 12:59 by Shantelle Andino APRN) Discharge planning issues (Acute) Contraindication to deep vein thrombosis (DVT) prophylaxis (Acute) UTI (urinary tract infection) (Acute) Elevated troponin level not due to acute coronary syndrome (Acute) Acute respiratory failure with hypoxia and hypercarbia (Acute) Acute exacerbation of chronic obstructive pulmonary disease (COPD) (Acute) Acute exacerbation of congestive heart failure (Acute) Raynauds disease (Acute) Lower extremity edema (Acute) Weight loss (Acute) ILD (interstitial lung disease) (Chronic) Personal history of nicotine dependence (Acute) Abnormal chest x-ray (Acute) Pain, foot (Acute) Nail dystrophy (Acute) Corns and callosities (Acute) Diastolic heart failure (Acute) Dyspnea (Acute) Tachycardia (Acute) Pre-diabetes (Acute) PVD (peripheral vascular disease) (Chronic) Lumbar radiculopathy (Acute) Anxiety (Chronic) COPD (chronic obstructive pulmonary disease) (Chronic) Atrial fibrillation, chronic (Chronic) HTN (hypertension) (Chronic) Claudication of left lower extremity (Chronic) Pulmonary emphysema (Chronic) PMR (polymyalgia rheumatica) (Chronic) Medical History B12 deficiency Elevated serum creatinine COVID-19 Hx of chronic cholecystitis Hx of carpal tunnel syndrome R side Dense breasts 2018. Category C. Normal mammogram. Dysuria (~10/2018) Limited range of motion of shoulder R sided. 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 + HR HPV beginning 2004. 2013 Pap Nl/HPV Neg 2015 Pap Nl/HPV + 2016 Pap Nl/HPV + ( Neg HPV 16 & 18) 2017 Pap Nl/HPV Neg 2020. Pap Nl/HPV Neg. Recommended stop screening paps. Surgical History History of cholecystectomy Hx laparoscopic cholecystectomy (~12/30/19) H/O: pt. denies, pt. states one child was born vaginally S/P cataract surgery S/P tubal ligation Social History Smoking/Tobacco Use Status: Former Tobacco Use Quit Date: 09/21/06 Tobacco: How many years used: 30 Smoking risk assessment performed?: Yes Alcohol Intake: current Alcohol Intake frequency: holidays/special occasions only Alcohol type: wine and hard liquor Drug use: Never Substance use type: does not use Details: alcohol: t-7 Household members: none and other Details: Lives alone at [employer] [employer]. D x20 years Housing: apartment Number of Children: 5 number of grandchildren: 3 current occupation: Retired with 50 years [employer] Pets and animals: Yes (Jose Currie) Pets and animals: dog(s) Sexually active: No Current gender identity: female Do you feel safe at home: Yes Do you feel safe in your relationship?: Yes Additional Social history: Son-Arron. 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 SERINA - Bhargav 24, Naeem 20, Pavithra 21. Female Reproductive History Menstrual Menopause type: natural History History 6 Para Hx # Term Pregnancies 5 Multiple births Hx # Pregnancies Ectopic pregnancies AB induced Hx Number of Living Children AB spontaneous Time Spent with Patient Time Spent with Patient: >85 minutes Time was spent: preparing to see the patient(eg.review tests), ordering medications,tests, procedures, referring, communicating with other health progressive care nurse, indepentently interpreting results, counseling the patient and care coordination
[2023-02-06 10:43] LABS: Anion Gap 6.5 mmol/L (3-11); BUN 44 mg/dL (7-18); CO2 32.5 mmol/L (21.0-32.0); CREATININE 1.8 mg/dL (0.55-1.02); Calcium 9.5 mg/dL (8.5-10.1); Chloride 100 mmol/L (98-107); Estimated GFR 28.13 (mL/min/1.73m2); Glucose 166 mg/dL (74-106); Potassium 4.3 mmol/L (3.5-5.1); Sodium 139 mmol/L (136-145)
[2023-02-06 11:14] LABS: Vitamin B12 774 pg/mL (193-986)
--- NOTE | 2023-02-06 14:52 | CMDISCH_ITS ---
Date of service: 02/06/23 Time of Service: 14:52 LACE Index Scoring Tool Questions: Length of Stay (in days): 3 Was the patient admitted via the E.D.?: Yes Comorbidities: Congestive Heart Failure and Chronic Pulmonary Disease E.D. Visits: 3 Answers: Total Score: 14 Risk of Readmission: High Risk Care Management Discharge Plan Reason for Hospitalization: Acute respiratory failure with hypoxemia Discharge Plan: Rehan will discharge to [facility] for short term rehab, anticipate pharmaceutical representative care. CM supported Rehan and her family in acquiring voluntary guardianship paperwork and pharmaceutical representative Medicaid application. Patient/Family Education Needs: Review discharge instructions, discuss Ask Me Three. Services Needed at Discharge: Senior Living Facility ([facility]) and Transportation
== END 2023-02-06 11:26 | disposition home health service (06) | DRG 291 ==
LOC: ER 04:14 → MS 04:16
PROVIDERS: Internal Medicine; Nurse Practitioner Acute Care; Admitting Provider Family Medicine; Emergency Provider Emergency Medicine Emergency Medical Services; PCP Physician Assistant Medical; Visit Provider Family Medicine
DX: I13.0 Hypertensive heart and chronic kidney disease with heart failure and stage 1 through stage 4 chronic kidney disease, or unspecified chronic kidney disease (principal); I50.33 Acute on chronic diastolic (congestive) heart failure; J96.01 Acute respiratory failure with hypoxia; J96.02 Acute respiratory failure with hypercapnia; J44.1 Chronic obstructive pulmonary disease with (acute) exacerbation; N30.01 Acute cystitis with hematuria; I48.20 Chronic atrial fibrillation, unspecified; M35.3 Polymyalgia rheumatica; J84.10 Pulmonary fibrosis, unspecified; N18.9 Chronic kidney disease, unspecified; R74.8 Abnormal levels of other serum enzymes; I73.00 Raynaud's syndrome without gangrene; R63.4 Abnormal weight loss; Z87.891 Personal history of nicotine dependence; R73.03 Prediabetes; M54.16 Radiculopathy, lumbar region; F41.9 Anxiety disorder, unspecified
CPT/HCPCS: 00123; 36415; 80048; 80053; 82805; 85027; 87040; 87637; 93005; 94640; 96365; 96375; 97110; 97162; 97530; 99291; 71045; 80162; 81003; 81015; 82607; 82746; 83605; 83735; 83880; 84443; 84484; 85025; 87086; 93010; 94667; 94668; 94760; 99223; 99232; 99233; 99239; J0696; J1940; J2930; J3490; J7620

== ENCOUNTER 2023-02-13 17:45 | Outpatient (REF) | payer MEDICARE, MEDICAID, SELFPAY ==
[2023-02-13 17:03] LABS: Digoxin 0.88 ng/mL (0.90-2.00)
== END 2023-02-13 17:46 | disposition home or self-care (01) ==
LOC: LBN 17:45
PROVIDERS: PCP Physician Assistant Medical; Visit Provider Nurse Practitioner Adult Health
DX: I50.33 Acute on chronic diastolic (congestive) heart failure (principal); I48.91 Unspecified atrial fibrillation; Z51.81 Encounter for therapeutic drug level monitoring
CPT/HCPCS: 80162

== ENCOUNTER → 2023-02-16 00:02 | Outpatient (CLI) | payer MEDICARE, MEDICAID, SELFPAY ==
--- NOTE | 2023-02-16 10:30 | DI.US_ITS ---
APPROVED REPORT EXAM: Comprehensive 2D, Doppler, and color-flow Echocardiogram Patient Location: Out-Patient [facility] Warehouse Agent: Irene Licea RDCS (AE) Indications: Congestive heart failure, MARTINEZ, Elevate BNP Other Information Study Quality: Adequate Conclusion Normal left ventricular wall thickness and chamber size. Ejection fraction is 55%. There are no seg mental wall motion abnormalities. Diastolic septal flattening suggest right ventricular pressure ove rload Right ventricle is grossly normal in size Both atria are moderately to severely dilated Aortic valve is trileaflet and sclerotic with trace regurgitation There is moderate mitral and tricuspid regurgitation Estimated right ventricular systolic pressure is 61 mmHg Wall motion Left Ventricle The left ventricle is normal size. The left ventricular systolic function is normal. The left ventric ular ejection fraction is within the normal range. There is normal left ventricular wall thickness. T here is normal LV segmental wall motion. There is no ventricular septal defect visualized. LVEF is 55 %. Right Ventricle Right ventricle is grossly normal in size. Right ventricular systolic function could not be assessed. Atria Left atrium is moderate to severely dilated. Right atrium is moderate to severely dilated. The intera trial septum is intact with no evidence for an atrial septal defect. Aortic Valve The Aortic valve is sclerotic. Aortic valve is trileaflet. There is no aortic valvular stenosis. Trac e aortic regurgitation is present. Mitral Valve There is mitral annular calcification. No evidence of mitral valve stenosis. Moderate mitral regurgit ation. Tricuspid Valve The tricuspid valve is normal in structure. There is no tricuspid valve stenosis. Moderate tricuspid regurgitation. The RVSP is 61.8 mmHg. Pulmonic Valve The pulmonary valve is normal in structure. There is no pulmonic valvular stenosis. There is no pulmo deep valvular regurgitation. Great Vessels The aortic root is normal in size. The ascending aorta is mildly dilated. Aortic arch is not well vis ualized. The IVC collapses <50% with inspiration. Pericardium There is no pericardial effusion. 2D Dimensions IVSD d PLAX 1.04 cm F: 0.6-1.0 Ao Root d 2.80 cm F: 2.7 - 3.3 LVPW d PLAX 0.97 cm F: 0.6 - 1.0 Ao Asc Diam d 3.24 cm F: 2.3 - 3.1 LVID d PLAX 3.73 cm F: 3.8 - 5.2 LVDs 2.76 cm F: 2.2 - 3.5 LV EF Teichholz 51.6 % FS 25.81 % LV EDV (Teich) 59.1 mL LV ESV (Teich) 28.6 mL Auto EF LV EDV A4C 50.7 mL LV EDV A2C 70.2 mL LV EDV BP 60.0 mL LV ESV A4C 24.8 mL LV ESV A2C 33.7 mL LV ESV BP 28.8 mL LVEF(%) A4C 51.0 % LVEF(%) A2C 52.1 % LVEF(%) BP 52.0 % LV SV A4C 25.8 ml LV SV A2C 36.6 ml LV SV BP 31.2 ml LV CO A4C 2.1 L/min LV CO A2C 3.1 L/min LV CO BP 2.6 L/min HR A4C 79.48 BPM HR A2C 84.71 BPM LV EDV Index (BP) LA Volume LA Length A4C 6.0 cm LA Length A2C 5.3 cm LA Area A4C s 23.02 cm2 LA Area A2C s 19.82 cm2 LA Vol A4C A-L 74.46 mL LA Vol A2C A-L 62.83 mL LA Vol Biplane A-L 73.0 mL LA Vol/BSA A4C A-L LA Vol/BSA A2C A-L LA Vol/BSA BP A-L 43.7 mL/m2 LA Vol A4C MOD 67.2 mL LA Vol A2C MOD 61.9 mL LA Vol BP MOD 67.7 mL RA Volume RA Area A4C 19.7 cm2 RA ESV A4C (A-L) 59.6mL RA Vol/BSA A4C A-L RA Length A4C 5.5 cm RA ESV A4C (MOD) 56.8mL LV Diastology MV E Vmax 1.12 (0.4-1.3 m/s) MV A Vmax 0.35 (0.4-1.3 m/s) E/A Ratio 3.2 Aortic Valve AoV Vmax 1.09 m/s LVOT Vmax 0.81 m/s AoV Peak Grad 4.7 mmHg LVOT Peak Grad 2.6 mmHg AoV Area (Vmax) 2.03 cm2 LVOT VTI 0.155 m AoV VTI 0.218 m LVOT Mean Grad 1.2 mmHg AoV Mean Anibal. 0.73 m/s LVOT SV 42.35 mL AoV Mean Grad 2.4 mmHg LVOT Diam s 1.85 cm AoV Area (VTI) 1.94 cm2 Velocity Ratio 0.74 Mitral Valve MV DT 92 (160-240 msec) MR Vmax 4.60 m/s MV Vmax TIPS 0.95 m/s MR VTI 1.547 m MV Mean Grad 1.1 (<2mmHg) MR Peak Grad 84.7 mmHg MV VTI 0.158 m MR Mean Grad 61.8 mmHg Pulmonary Valve PV Vmax 0.97 (0.5-1.5 m/s) RVOT Vmax 0.42 m/s PV Peak Grad 3.8 mmHg RVOT Peak Gr. 0.7 mmHg PV Mean Anibal 0.72 m/s RVOT VTI 0.075 m PV Mean Grad 2.2 mmHg RVOT Mean Gr. 0.5 mmHg Tricuspid Valve RA Pressure 8.00 mmHg TR Vmax 3.67 m/s TR Peak Grad 53.7 mmHg RVSP (TR) 61.8 mmHg
== END ==
PROVIDERS: PCP Physician Assistant Medical; Visit Provider Nurse Practitioner Family
DX: I50.9 Heart failure, unspecified (principal)
CPT/HCPCS: 93306

== ENCOUNTER 2023-02-16 11:11 | Inpatient (IN) | payer MEDICARE, MEDICAID, SELFPAY ==
[2023-02-16] VITALS (151 sets, daily range): BP systolic 98–184; BP diastolic 42–115; PULSE 70–114; RESP 3–24; TEMP 36.8–38.2; O2SAT 86–100
--- NOTE | 2023-02-16 11:15 | RT.EKG_ITS ---
APPROVED REPORT Exam: Resting ECG Reason for Exam: Altered Mental Status Patient Location: E HR:75 bpm ECG Measurements Heart Rate 75 AXIS NM [id number] P [id number] QRSd 133 QRS 87 QT 408 T -24 QTc 457 Conclusion Atrial fibrillation...V-rate 58- 94, irreg A-activity Right bundle branch block...QRSd>120, terminal axis(90,270)
--- NOTE | 2023-02-16 11:30 | DI.RAD_ITS ---
Exam(s) XR CHEST 2V PA LATERAL EXAM: XR CHEST 2V PA LATERAL CLINICAL HISTORY: fever, ams TECHNIQUE: 2D digital imaging was performed of the chest. Two images were obtained. PA and lateral views were obtained. COMPARISON: CR XR CHEST 2V PA LATERAL from 12/12/2021 CR,XR XR PORTABLE CHEST AP from 02/03/2023 FINDINGS: MEDIASTINUM: Normal. HEART: Normal. PULMONARY VASCULATURE: Normal. LUNGS: There is diffuse chronic pulmonary fibrosis. Increased lung markings are seen in the left bas e. PLEURAL SPACE: There are small bilateral pleural effusions. No pneumothorax is identified. BONE:Within normal limits for the patient's age. OTHER FINDINGS:Normal. IMPRESSION: 1. Increased lung markings in the left base which may represent a superimposed pneumonia or interstit ial edema. 2. Small bilateral pleural effusions. 3. Diffuse chronic pulmonary fibrosis. DATA REPOSITORY: RADIATION DOSE DELIVERED:
--- NOTE | 2023-02-16 11:58 | ED.GENADUL_ITS ---
Discharge Plan Disposition Patient Disposition: Admit to [facility] Condition: Stable Discharge Details Clinical Impression: Pneumonia Admit Date/Time: 02/16/23 20:54 Admit Provider: Don Gomes Attending Provider: Don Gomes Primary Care Provider: Raquel Martin ED Provider: Timoteo Coy Discharge Data Discharge Date/Time-TO BE ENTERED AT DEPARTURE: 02/16/23 22:13 Medical Decision Making <Radha Eng NP - Last Filed: 02/16/23 12:52> Presents to the emergency department with increased confusion. Recent medical issues include dig toxicity, urinary tract infection, COPD exacerbation on steroid taper. She does have a history of cognitive impairment and differentials are broad including acute infectious process, dig toxicity, steroid induced delirium, electrolyte abnormality. Initial vital signs do show temperature of 38.2 so most likely infectious process. Labs and x-ray pending at time of shift change. Patient report is signed off to [facility] Medical records reviewed: Yes I reviewed the patient's medical records. Lab Data Lab results reviewed: Yes I reviewed the patient's lab results. Lab results narrative: Pending at time of shift change HPI <Radha Eng NP - Last Filed: 02/16/23 12:52> General Mode of arrival: wheelchair . Date/Time Provider Initiated Documentation: 02/16/23 11:15 . Limitations to Documentation: other (Cognitive impairment) . Information obtained by: patient, RN/MD and RN notes reviewed . HPI Narrative: This is an 82-year-old female patient who resides at [facility] and rehab who was here having an outpatient echocardiogram that was previously scheduled when she reportedly seemed to be having increased confusion. Per family member states that she has had change in her mental status with increased confusion. Review of her record shows recent hospitalization with medication adjustment secondary to impaired renal function. She was noted to have some dig toxicity. She was also being diuresed for our and acute exacerbation of heart failure. Also noted to have multifactorial acute respiratory failure with hypoxia secondary to COPD exacerbation heart failure and interstitial lung disease. She had been discharged back to the skilled nursing on reduced dose of digoxin steroid taper and new Lasix. She denies abdominal pain nausea or vomiting. Related Data Home Medications Medication Instructions Recorded Confirmed acetaminophen 325 mg tablet 325 mg PO Q6H PRN 01/13/20 02/16/23 (Tylenol) albuterol sulfate 90 mcg/actuation 2 puff inhalation Q6H PRN 05/17/21 02/16/23 aerosol inhaler (Ventolin HFA) mecobalamin (vitamin B12) 10,000 1,000 mcg subcut [id number] 05/17/21 02/16/23 mcg solution for injection potassium chloride 10 mEq 10 meq PO DAILY 07/13/21 02/16/23 capsule,extended release albuterol sulfate 2.5 mg/3 mL 2.5 mg inhalation .Q 4-6H PRN 12/14/21 02/16/23 (0.083 %) solution for nebulization tiotropium bromide 18 mcg capsule 18 mcg inhalation DAILY 02/07/22 02/16/23 with inhalation device (Spiriva with HandiHaler) triamcinolone acetonide 0.1 % 1 applic topical BID 05/08/22 02/16/23 topical cream metoprolol tartrate 25 mg tablet 12.5 mg PO BID 05/10/22 02/16/23 furosemide 40 mg tablet 40 mg PO DAILY #90 tabs 07/17/22 02/16/23 simvastatin 20 mg tablet 20 mg PO DAILY #14 tabs 12/31/22 02/16/23 lorazepam 0.5 mg tablet 0.5 mg PO BID PRN anxiety 02/04/23 02/16/23 apixaban 2.5 mg tablet (Eliquis) 2.5 mg PO BID #14 tabs 02/06/23 02/16/23 digoxin 125 mcg (0.125 mg) tablet 0.0625 mg (1/2 x 125 mcg (0.125 02/06/23 02/16/23 mg)) PO Q48H #7 tabs furosemide 40 mg tablet 40 mg PO DAILY #30 tabs 02/06/23 02/16/23 lorazepam 0.5 mg tablet 0.5 mg PO BID PRN PRN Anxiety #60 02/06/23 02/16/23 tabs melatonin 3 mg tablet 3 mg PO HS #30 tabs 02/06/23 02/16/23 polyethylene glycol 3350 17 gram 17 g PO DAILY PRN PRN Constipation 02/06/23 02/16/23 oral powder packet #30 ea prednisone 20 mg tablet 40 mg (2 x 20 mg) PO DAILY AM #15 02/06/23 02/16/23 tabs Previous Rx's Medication Instructions Recorded furosemide 40 mg tablet 40 mg PO DAILY #90 tabs 07/17/22 simvastatin 20 mg tablet 20 mg PO DAILY #14 tabs 12/31/22 apixaban 2.5 mg tablet (Eliquis) 2.5 mg PO BID #14 tabs 02/06/23 digoxin 125 mcg (0.125 mg) tablet 0.0625 mg (1/2 x 125 mcg (0.125 02/06/23 mg)) PO Q48H #7 tabs furosemide 40 mg tablet 40 mg PO DAILY #30 tabs 02/06/23 lorazepam 0.5 mg tablet 0.5 mg PO BID PRN PRN Anxiety #60 02/06/23 tabs melatonin 3 mg tablet 3 mg PO HS #30 tabs 02/06/23 polyethylene glycol 3350 17 gram 17 g PO DAILY PRN PRN Constipation 02/06/23 oral powder packet #30 ea prednisone 20 mg tablet 40 mg (2 x 20 mg) PO DAILY AM #15 02/06/23 tabs Allergies Allergy/AdvReac Type Severity Reaction Status Date / Time pseudoephedrine HCl Allergy Intermediate Swelling/Ed Verified 02/16/23 12:22 [From Sudafed] yuniel Sulfa (Sulfonamide Allergy itch/rash Verified 02/16/23 12:22 Antibiotics) erythromycin base AdvReac Intermediate GI upset Verified 02/16/23 12:22 codeine AdvReac hyper Verified 02/16/23 12:22 General Stated Complaint: AMS/LOC ADAM: 3 Review of Systems <GALILEO Wooten - Last Filed: 02/17/23 20:39> All systems reviewed & are unremarkable except as noted in HPI and below PFSH <Radha Eng NP - Last Filed: 02/16/23 12:52> All Active Problems (Updated 02/17/23 @ 10:06 by Ever Gray MD) DVT prophylaxis (Acute) Lactic acidosis (Acute) CKD (chronic kidney disease) (Chronic) Pneumonia (Acute) Raynauds disease (Acute) Lower extremity edema (Acute) Weight loss (Acute) ILD (interstitial lung disease) (Chronic) Personal history of nicotine dependence (Acute) Abnormal chest x-ray (Acute) Pain, foot (Acute) Nail dystrophy (Acute) Corns and callosities (Acute) Diastolic heart failure (Chronic) Dyspnea (Acute) Tachycardia (Acute) Pre-diabetes (Acute) PVD (peripheral vascular disease) (Chronic) Lumbar radiculopathy (Acute) Anxiety (Chronic) COPD (chronic obstructive pulmonary disease) (Chronic) Atrial fibrillation, chronic (Chronic) HTN (hypertension) (Chronic) Claudication of left lower extremity (Chronic) Pulmonary emphysema (Chronic) PMR (polymyalgia rheumatica) (Chronic) Medical History UTI (urinary tract infection) Elevated troponin level not due to acute coronary syndrome Acute respiratory failure with hypoxia and hypercarbia Acute exacerbation of chronic obstructive pulmonary disease (COPD) B12 deficiency Elevated serum creatinine COVID-19 Hx of chronic cholecystitis Hx of carpal tunnel syndrome R side Dense breasts 2019. Category C. Normal mammogram. Dysuria (~10/2018) Limited range of motion of shoulder R sided. 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 + HR HPV beginning 2003. 2013 Pap Nl/HPV Neg 2014 Pap Nl/HPV + 2016 Pap Nl/HPV + ( Neg HPV 16 & 18) 2017 Pap Nl/HPV Neg 2020. Pap Nl/HPV Neg. Recommended stop screening paps. Surgical History History of cholecystectomy Hx laparoscopic cholecystectomy (~12/30/19) H/O: pt. denies, pt. states one child was born vaginally S/P cataract surgery S/P tubal ligation Social History Smoking/Tobacco Use Status: Former Tobacco Use Quit Date: 09/21/06 Tobacco: How many years used: 30 Smoking risk assessment performed?: Yes Alcohol Intake: current Alcohol Intake frequency: holidays/special occasions only Alcohol type: wine and hard liquor Drug use: Never Substance use type: does not use Details: alcohol: t-7 Household members: none and other Details: Lives alone at [facility]. D x20 years Housing: skilled nursing Number of Children: 5 number of grandchildren: 3 current occupation: Retired with 50 years [employer] Pets and animals: Yes (Jose Currie) Pets and animals: dog(s) Sexually active: No Current gender identity: female Do you feel safe at home: Yes Do you feel safe in your relationship?: Yes Additional Social history: Son-Arron. 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 GC - Bhargav 24, Naeem 20, Pavithra 21. Female Reproductive History Menstrual Menopause type: natural History History 6 Para Hx # Term Pregnancies 5 Multiple births Hx # Pregnancies Ectopic pregnancies AB induced Hx Number of Living Children AB spontaneous Exam <BLANCA Daly Last Filed: 02/16/23 12:52> Narrative Exam Narrative: This is a thin elderly female of stated age sitting on the stretcher in no acute distress. Head is atraumatic oral mucosa is slightly dry neck is supple no JVD cardiovascular regular rate and rhythm respirations even and unlabored she has coarse Rales in the bases bilaterally no wheezing. Cardiovascular irregular rate and rhythm she is in controlled atrial fibrillation no acute ST segment changes her abdomen is soft she reports nontender but does have some voluntary guarding there are no masses. Positive bowel sounds. Moves all extremities. Course <BLANCA Daly Last Filed: 02/16/23 12:52> Vital Signs Vital signs: Vital Signs Temperature 38.2 C H 02/16/23 11:18 Pulse 70 02/16/23 11:18 Respiratory Rate 15 02/16/23 11:18 Blood Pressure 145/69 H 02/16/23 11:18 Pulse Oximetry 96 02/16/23 11:18 Temperature 38.2 C H 02/16/23 11:18 Temperature Source Tympanic 02/16/23 11:18 Pulse 70 02/16/23 11:18 Respiratory Rate 15 02/16/23 11:18 Blood Pressure 145/69 H 02/16/23 11:18 Blood Pressure Position Sitting 02/16/23 11:18 Pulse Oximetry 96 02/16/23 11:18 Oxygen Delivery Method Room Air 02/16/23 11:18 Oxygen Flow Rate 0 02/16/23 11:18 Pain Level 0 02/16/23 11:18 Sign Out <Radha Eng NP - Last Filed: 02/16/23 12:52> Sign Out Data: Sign Out Comment: Patient presented from outpatient echocardiogram lab after stating she did not feel well patient has cognitive impairment poor historian found to have temperature of 38.2. Fever workup is initiated and results pending at time of shift change. Recent hospitalization for acute heart failure COPD exacerbation, suspected UTI . Was dc back to rehab on steroid taper and Lasix. Not on currently on antibiotics. Last updated by Radha Eng NP at 02/16/23 12:47
[2023-02-16 12:02] LABS: Abs Immature Grans 0.07 10^3/uL (0.0-0.06); Absolute Basophil Count 0.02 10^3/uL (0.0-0.2); Absolute Eosinophil Count 0.02 10^3/uL (0.0-0.7); Absolute Lymphocyte Count 0.38 10^3/uL (1.2-3.4); Absolute Monocyte Count 0.49 10^3/uL (0.1-0.8); Absolute Neutrophil Count 9.55 10^3/uL (1.2-6.7); Basophils % 0.2; Eosinophils % 0.2; HCT 41.6 % (36.0-46.0); HGB 12.7 g/dL (11.2-15.7); Immature Grans % 0.7; Lymphocytes % 3.6; MCH 30.8 pg (27.0-33.0); MCHC 30.5 % (32.0-36.0); MCV 101 fL (80-95); Monocytes % 4.7; Neutrophils % 90.6; Platelet Count 118 10^3/uL (130-400); RBC 4.13 10^6/uL (3.93-5.22); RDW 15.4 % (11.7-14.6); RDW-SD 56.6 fL; WBC 10.53 10^3/uL (4.4-10.8)
[2023-02-16 12:25] LABS: ALT 71 U/L (14-59); AST 50 U/L (15-37); Albumin 3.5 g/dL (3.4-5.0); Alkaline Phosphatase 83 U/L (46-116); BUN 28 mg/dL (7-18); Bilirubin, Total 1.8 mg/dL (0.2-1.0); CREATININE 1.7 mg/dL (0.55-1.02); Calcium 9.4 mg/dL (8.5-10.1); Chloride 100 mmol/L (98-107); Estimated GFR 30.13 (mL/min/1.73m2); Glucose 186 mg/dL (74-106); Magnesium 2.3 mg/dL (1.8-2.4); NT-proBNP 9699 pg/mL (<300); Potassium 3.8 mmol/L (3.5-5.1); Sodium 139 mmol/L (136-145); Total Protein 6.9 g/dL (6.4-8.2)
[2023-02-16 12:26] LABS: Troponin I 83 ng/L (<or=60)
[2023-02-16 12:38] LABS: Digoxin 0.84 ng/mL (0.90-2.00)
[2023-02-16 12:47] LABS: Source Nasal/Nares
[2023-02-16 13:00] LABS: Lactate 2.6 mmol/L (0.6-1.4)
--- NOTE | 2023-02-16 13:07 | W.EDPROG ---
Date of service: 02/16/23 Time of Service: 13:00 Medical Decision Making This dictation utilizes [id number] dictation software and may contain unedited grammatical errors. Received this patient in sign-out from Radha Eng, please see her note- Essentially this 82 y/o F presents to ED today with a chief complaint of not feeling well with some increased confusion lately with baseline cognitive decline while at an outpatient ECHO appointment. Lives at the rehab facility across the street, recently admitted for multifactorial COPD/CHF exacerbation with question of UTI but discharged without antibiotics- discharged on steroid taper. Patient presents today febrile to 38.2, has chest x-ray showing question pneumonia versus interstitial fluid, BNP elevated, Trop of 83 which was baseline at recent admission-some question of abdominal guarding in the setting of a cholecystectomy and remote history.. Patients' medical history: History of elevated troponins, chronic COPD, chronic elevated creatinine, CHF, interstitial lung disease, peripheral vascular disease, chronic atrial fibrillation, hypertension, known cerebral aneurysm. Family and social history: former smoker. Patient anticoagulated on Eliquis Pertinent exam findings / vital signs include rales at bases, no hypoxia or oxygen requirement, febrile, nonperitoneal abdomen, no tachycardia or hypotension. Patient reports subjective sore throat and difficulty breathing without hypoxia. Differential / pathologies of concern include CHF/COPD exacerbation of mixed etiology, PNA, Sepsis, UTI. Diagnostic studies of: -CBC, CMP, lactate, blood cultures, urinalysis, procalcitonin, COVID PCR, U tox, EKG, chest x-ray, digoxin level. -CBC shows White count 10.5, low platelets at 118, appears baseline to 45 last week, elevated neutrophils to 9.55, low lymphocytes, question viral syndrome -CMP shows baseline creatinine of 1.7, elevated glucose at 186 (likely linked to steroid taper), elevated bilirubin at 1.8, last week value 0.9- increased AST/ALT mild elevation, but ALT markedly elevated from prior visits -Trop 83, baseline was 83 at discharge last week -BNP elevated to 9699, tripled from admission value of ~3000 02/03/23 -CXR shows increased lung markings at left base which may represent superimposed pneumonia or interstitial edema, small bilateral pleural effusions with diffuse chronic pulmonary fibrosis -Lactate 2.6, no fluids initiated at sign-out with history of CHF, no Lasix given at time of sign-out -Procalcitonin pending at time of sign-out -Blood Cx's pending -EKG shows rate controlled atrial fibrillation at 75 bpm with normal axis, ST depression V3 without reciprocal changes, right bundle branch block, poor R wave progression -ECHO pending routine read by [facility], unnecessary to expedite read at this time. Interventions of: -40mg IV Lasix, IVF @ 175mL per hour, IV APAP -Initiate empiric antibiotics for PNA with HCAP coverage with Cefepime, no history of MRSA noted in records search- will hold Vancomycin at this time. -Will repeat lactate q2hr, not giving 30cc/kg sepsis bolus with no criteria for severe sepsis or septic shock and has noted CHF. -DuoNeb for patients' subjective SOB. Likely needs admission for Sepsis, Pneumonia, COPD/CHF- repeat lactate elevated 2.3. WBCs 10.53 but recent steroid taper, so may be masking leukocytosis. Spoke with Dr. Quiñonez for admission for PNA, who accepted. Vanco will be started after Cefepime finishes. Disposition of Pneumonia. Medical Records Medical records reviewed: Yes I reviewed the patient's medical records. Imaging Data Radiologic Study: Imaging: X-Ray Radiologist's impression: XR CHEST 2V PA LATERAL EXAM: XR CHEST 2V PA LATERAL CLINICAL HISTORY: fever, ams TECHNIQUE: 2D digital imaging was performed of the chest. Two images were obtained. PA and lateral views were obtained. COMPARISON: CR XR CHEST 2V PA LATERAL from 12/12/2021 CR,XR XR PORTABLE CHEST AP from 02/03/2023 FINDINGS: MEDIASTINUM: Normal. HEART: Normal. PULMONARY VASCULATURE: Normal. LUNGS: There is diffuse chronic pulmonary fibrosis. Increased lung markings are seen in the left base. PLEURAL SPACE: There are small bilateral pleural effusions. No pneumothorax is identified. BONE:Within normal limits for the patient's age. OTHER FINDINGS:Normal. IMPRESSION: 1. Increased lung markings in the left base which may represent a superimposed pneumonia or interstitial edema. 2. Small bilateral pleural effusions. 3. Diffuse chronic pulmonary fibrosis. Lab Data Labs: 02/16/23 12:55 Blood Blood Culture - Pending 02/16/23 12:46 Blood Blood Culture - Pending Laboratory Tests Range/Units 02/16/23 02/16/23 02/16/23 11:56 12:37 12:37 WBC (4.4-10.8) 10^3/uL 10.53 RBC (3.93-5.22) 10^6/uL 4.13 Hgb (11.2-15.7) g/dL 12.7 Hct (36.0-46.0) % 41.6 MCV (80-95) fL 101 H MCH (27.0-33.0) pg 30.8 MCHC (32.0-36.0) % 30.5 L RDW (11.7-14.6) % 15.4 H Plt Count (130-400) 10^3/uL 118 L MPV (8.0-11.0) fL 9.0 Immature Gran % 0.7 Neutrophils % 90.6 Lymphocytes % 3.6 Monocytes % 4.7 Eosinophils % 0.2 Basophils % 0.2 Nucleated RBC % (0.0-0.3) % 0.0 Absolute Neutrophils (1.2-6.7) 10^3/uL 9.55 H Absolute Lymphocytes (1.2-3.4) 10^3/uL 0.38 L Absolute Monocytes (0.1-0.8) 10^3/uL 0.49 Absolute Eosinophils (0.0-0.7) 10^3/uL 0.02 Absolute Basophils (0.0-0.2) 10^3/uL 0.02 VBG Lactate (0.6-1.4) mmol/L Sodium (136-145) mmol/L 139 Potassium (3.5-5.1) mmol/L 3.8 Chloride (98-107) mmol/L 100 Carbon Dioxide (21.0-32.0) mmol/L 35.0 H Anion Gap (3-11) mmol/L 4.0 BUN (7-18) mg/dL 28 H Creatinine (0.55-1.02) mg/dL 1.7 H Est GFR (CKD-EPI 2020) (mL/min/1.73m2) 30.13 Glucose (74-106) mg/dL 186 H Calcium (8.5-10.1) mg/dL 9.4 Magnesium (1.8-2.4) mg/dL 2.3 Total Bilirubin (0.2-1.0) mg/dL 1.8 H AST (15-37) U/L 50 H ALT (14-59) U/L 71 H Alkaline Phosphatase (46-116) U/L 83 Troponin I (<or=60) ng/L 83 H* NT-Pro-B Natriuret Pep (<300) pg/mL 9699 H Total Protein (6.4-8.2) g/dL 6.9 Albumin (3.4-5.0) g/dL 3.5 Procalcitonin ng/mL Urine Color (Yellow) Urine Clarity (Clear) Urine pH (5-8) Ur Specific [place] (1.005-1.025) Urine Protein (Negative) mg/dL Urine Ketones (Negative) mg/dL Urine Blood (Negative) Urine Nitrite (Negative) Urine Bilirubin (Negative) Urine Urobilinogen (Up to 0.2) mg/dL Ur Leukocyte Esterase (Negative) Urine RBC (0-2) HPF Urine WBC (0-5) HPF Ur Epithelial Cells (Negative) HPF Urine Crystals (Negative) HPF Urine Bacteria (Negative) HPF Urine Casts (Negative) LPF Urine Mucus (Negative) Ur Culture Indicated? Urine Glucose (Negative) mg/dL Digoxin (0.90-2.00) ng/mL 0.84 L Urine Opiates Screen (Negative) Urine Methadone Screen (Negative) Ur Barbiturates Screen (Negative) Ur Tricyclics Screen (Negative) Ur Amphetamines Screen (Negative) U Benzodiazepines Scrn (Negative) Urine Cocaine Screen (Negative) Ur THC Screen (Negative) COVID-19 Source Cancelled Nasal/Nares SARS-CoV-2 (PCR) Cancelled Influenza Type A (PCR) Influenza Type B (PCR) RSV (PCR) Range/Units 02/16/23 02/16/23 02/16/23 12:37 12:46 13:30 WBC (4.4-10.8) 10^3/uL RBC (3.93-5.22) 10^6/uL Hgb (11.2-15.7) g/dL Hct (36.0-46.0) % MCV (80-95) fL MCH (27.0-33.0) pg MCHC (32.0-36.0) % RDW (11.7-14.6) % Plt Count (130-400) 10^3/uL MPV (8.0-11.0) fL Immature Gran % Neutrophils % Lymphocytes % Monocytes % Eosinophils % Basophils % Nucleated RBC % (0.0-0.3) % Absolute Neutrophils (1.2-6.7) 10^3/uL Absolute Lymphocytes (1.2-3.4) 10^3/uL Absolute Monocytes (0.1-0.8) 10^3/uL Absolute Eosinophils (0.0-0.7) 10^3/uL Absolute Basophils (0.0-0.2) 10^3/uL VBG Lactate (0.6-1.4) mmol/L 2.6 H* Sodium (136-145) mmol/L Potassium (3.5-5.1) mmol/L Chloride (98-107) mmol/L Carbon Dioxide (21.0-32.0) mmol/L Anion Gap (3-11) mmol/L BUN (7-18) mg/dL Creatinine (0.55-1.02) mg/dL Est GFR (CKD-EPI 2020) (mL/min/1.73m2) Glucose (74-106) mg/dL Calcium (8.5-10.1) mg/dL Magnesium (1.8-2.4) mg/dL Total Bilirubin (0.2-1.0) mg/dL AST (15-37) U/L ALT (14-59) U/L Alkaline Phosphatase (46-116) U/L Troponin I (<or=60) ng/L NT-Pro-B Natriuret Pep (<300) pg/mL Total Protein (6.4-8.2) g/dL Albumin (3.4-5.0) g/dL Procalcitonin ng/mL < 0.1 Urine Color (Yellow) Yellow Urine Clarity (Clear) Clear Urine pH (5-8) 5.5 Ur Specific [place] (1.005-1.025) 1.020 Urine Protein (Negative) mg/dL Trace H Urine Ketones (Negative) mg/dL Negative Urine Blood (Negative) Moderate H Urine Nitrite (Negative) Negative Urine Bilirubin (Negative) Negative Urine Urobilinogen (Up to 0.2) mg/dL 2.0 H Ur Leukocyte Esterase (Negative) Negative Urine RBC (0-2) HPF 5-10 H Urine WBC (0-5) HPF Negative Ur Epithelial Cells (Negative) HPF Few Urine Crystals (Negative) HPF Negative Urine Bacteria (Negative) HPF Negative Urine Casts (Negative) LPF 0-2 Hyaline Urine Mucus (Negative) Trace Ur Culture Indicated? No Urine Glucose (Negative) mg/dL Negative Digoxin (0.90-2.00) ng/mL Urine Opiates Screen (Negative) Negative Urine Methadone Screen (Negative) Negative Ur Barbiturates Screen (Negative) Negative Ur Tricyclics Screen (Negative) Negative Ur Amphetamines Screen (Negative) Negative U Benzodiazepines Scrn (Negative) Negative Urine Cocaine Screen (Negative) Negative Ur THC Screen (Negative) Negative COVID-19 Source SARS-CoV-2 (PCR) Negative Influenza Type A (PCR) Cancelled Influenza Type B (PCR) Cancelled RSV (PCR) Cancelled Range/Units 02/16/23 17:35 WBC (4.4-10.8) 10^3/uL RBC (3.93-5.22) 10^6/uL Hgb (11.2-15.7) g/dL Hct (36.0-46.0) % MCV (80-95) fL MCH (27.0-33.0) pg MCHC (32.0-36.0) % RDW (11.7-14.6) % Plt Count (130-400) 10^3/uL MPV (8.0-11.0) fL Immature Gran % Neutrophils % Lymphocytes % Monocytes % Eosinophils % Basophils % Nucleated RBC % (0.0-0.3) % Absolute Neutrophils (1.2-6.7) 10^3/uL Absolute Lymphocytes (1.2-3.4) 10^3/uL Absolute Monocytes (0.1-0.8) 10^3/uL Absolute Eosinophils (0.0-0.7) 10^3/uL Absolute Basophils (0.0-0.2) 10^3/uL VBG Lactate (0.6-1.4) mmol/L 2.3 H* Sodium (136-145) mmol/L Potassium (3.5-5.1) mmol/L Chloride (98-107) mmol/L Carbon Dioxide (21.0-32.0) mmol/L Anion Gap (3-11) mmol/L BUN (7-18) mg/dL Creatinine (0.55-1.02) mg/dL Est GFR (CKD-EPI 2020) (mL/min/1.73m2) Glucose (74-106) mg/dL Calcium (8.5-10.1) mg/dL Magnesium (1.8-2.4) mg/dL Total Bilirubin (0.2-1.0) mg/dL AST (15-37) U/L ALT (14-59) U/L Alkaline Phosphatase (46-116) U/L Troponin I (<or=60) ng/L NT-Pro-B Natriuret Pep (<300) pg/mL Total Protein (6.4-8.2) g/dL Albumin (3.4-5.0) g/dL Procalcitonin ng/mL Urine Color (Yellow) Urine Clarity (Clear) Urine pH (5-8) Ur Specific [place] (1.005-1.025) Urine Protein (Negative) mg/dL Urine Ketones (Negative) mg/dL Urine Blood (Negative) Urine Nitrite (Negative) Urine Bilirubin (Negative) Urine Urobilinogen (Up to 0.2) mg/dL Ur Leukocyte Esterase (Negative) Urine RBC (0-2) HPF Urine WBC (0-5) HPF Ur Epithelial Cells (Negative) HPF Urine Crystals (Negative) HPF Urine Bacteria (Negative) HPF Urine Casts (Negative) LPF Urine Mucus (Negative) Ur Culture Indicated? Urine Glucose (Negative) mg/dL Digoxin (0.90-2.00) ng/mL Urine Opiates Screen (Negative) Urine Methadone Screen (Negative) Ur Barbiturates Screen (Negative) Ur Tricyclics Screen (Negative) Ur Amphetamines Screen (Negative) U Benzodiazepines Scrn (Negative) Urine Cocaine Screen (Negative) Ur THC Screen (Negative) COVID-19 Source SARS-CoV-2 (PCR) Influenza Type A (PCR) Influenza Type B (PCR) RSV (PCR) Sign Out Sign Out Data: Sign Out Comment: Patient presented from outpatient echocardiogram lab after stating she did not feel well patient has cognitive impairment poor historian found to have temperature of 38.2. Fever workup is initiated and results pending at time of shift change. Recent hospitalization for acute heart failure COPD exacerbation, suspected UTI . Was dc back to rehab on steroid taper and Lasix. Not on currently on antibiotics. Last updated by Radha Eng NP at 02/16/23 12:47 Discharge Plan Disposition Patient Disposition: Admit to [facility] Condition: Stable Discharge Details Clinical Impression: Pneumonia Primary Care Provider: Raquel Martin ED Provider: Timoteo Coy Home Meds and New Rx's Prescriptions: No Action acetaminophen [Tylenol] 325 mg tablet 325 mg PO Q6H PRN triamcinolone acetonide 0.1 % cream 1 applic topical BID Hold Instructions: defered mecobalamin (vitamin B12) 10,000 mcg recon soln 1,000 mcg subcut [id number] albuterol sulfate [Ventolin HFA] 90 mcg/actuation HFA aerosol inhaler 2 puff inhalation Q6H PRN potassium chloride 10 mEq capsule, extended release 10 meq PO DAILY albuterol sulfate 2.5 mg /3 mL (0.083 %) solution for nebulization 2.5 mg inhalation .Q 4-6H PRN tiotropium bromide [Spiriva with HandiHaler] 18 mcg capsule, w/inhalation device 18 mcg Inhalation DAILY metoprolol tartrate 25 mg tablet 12.5 mg PO BID Patient Comments: ordered by PCP furosemide 40 mg tablet 40 mg PO DAILY Qty: 90 3RF simvastatin 20 mg tablet 20 mg PO DAILY Qty: 14 0RF lorazepam 0.5 mg tablet 0.5 mg PO BID PRN (Reason: anxiety) Patient Comments: TAKE ONE TABLET BY MOUTH TWICE A DAY NEEDED FOR SEVERE ANXIETY prednisone 20 mg tablet 40 mg PO DAILY AM Qty: 15 0RF Rx Instructions: Prednisone Taper: Take Prednisone 40 mg orally daily for 3 days, then decrease the dose taken by 10 mg every 3 days until the end of the supply furosemide 40 mg Tablet 40 mg PO DAILY Qty: 30 0RF polyethylene glycol 3350 17 gram Powder In Packet 17 g PO DAILY PRN PRN (Reason: Constipation) Qty: 30 0RF melatonin 3 mg Tablet 3 mg PO HS Qty: 30 0RF lorazepam 0.5 mg Tablet 0.5 mg PO BID PRN PRN (Reason: Anxiety) Qty: 60 0RF digoxin 125 mcg (0.125 mg) Tablet 0.0625 mg PO Q48H Qty: 7 0RF Eliquis 2.5 mg Tablet 2.5 mg PO BID Qty: 14 0RF
[2023-02-16 13:19] LABS: COVID-19 PCR Negative (Negative)
[2023-02-16 13:30] LABS: Procalcitonin < 0.1 ng/mL
[2023-02-16 13:37] LABS: Bilirubin Negative (Negative); Blood Moderate (Negative); Clarity Clear (Clear); Glucose Negative (Negative); Ketones Negative (Negative); Leukocyte Esterase Negative (Negative); Nitrite Negative (Negative); pH 5.5 (5-8)
[2023-02-16] MEDS: Furosemide 40 MG/4 ML VIAL IVP (13:41)
[2023-02-16] MEDS: CEFEPIME 1 GM in Normal Saline 50 ML IVPB (13:41)
[2023-02-16 13:44] LABS: Bacteria Negative HPF (Negative); C & S Indicated? No; Casts 0-2 Hyaline LPF (Negative); Crystals Negative HPF (Negative); Epithelial Cells Few HPF (Negative); Mucus Trace (Negative); WBC Negative HPF (0-5)
[2023-02-16] MEDS: Normal Saline 1,000 ML 175 ML IV (13:45)
[2023-02-16] MEDS: Albuterol/Ipratropium 3 ML UPD VIAL UPD (13:45)
[2023-02-16 13:48] LABS: *AMPHETAMINES SCREEN URINE Negative (Negative); *BARBITURATES SCREEN URINE Negative (Negative); *BENZODIAZEPINES SCREEN URINE Negative (Negative); Cannabinoids THC Negative (Negative); Cocaine Screen,Urine Negative (Negative); METHADONE URINE SCREEN Negative (Negative); OPIATES URINE SCREEN Negative (Negative)
[2023-02-16 13:49] LABS: Tricyclic Antidepressants Negative (Negative)
[2023-02-16 17:41] LABS: Lactate 2.3 mmol/L (0.6-1.4)
--- NOTE | 2023-02-16 20:45 | W.PM.HP.N ---
Date of service: 02/16/23 Time of Service: 20:45 Assessment and Plan Assessment and plan (1) Pneumonia: Start date: 02/16/23 Status: Acute Assessment and plan: This is an 82-year-old lady who was recently hospitalized and now returning to this facility with fever, tachycardia and altered mental status but no elevation of procalcitonin or WBC. She does have slightly worsening CHF and chronic kidney disease responded to IV Lasix and gentle IV hydration with her lactate elevated but trending downward slowly. She is mentating more normal presently and has defervesced. She is on IV vancomycin and cefepime for treatment of institution acquired pneumonia and will be watched closely for signs of progressive sepsis though this appears to not be the case. She is a DNR/DNI. Qualifiers: Laterality: left Lung location: lower lobe of lung Pneumonia type: due to unspecified organism Qualified Code(s): J18.9 - Pneumonia, unspecified organism (2) Lactic acidosis: Start date: 02/16/23 Status: Acute Assessment and plan: Trend labs as we continue gentle IV hydration watching for fluid overload with CHF. (3) Diastolic heart failure: Status: Chronic Assessment and plan: Chronic and slightly exacerbated recently though this appears to be a slow deterioration. She had an echocardiogram the day of admission but this may not be interpreted until first of next week. The hospitalist who is skilled at [facility] will review in the morning. Continue IV Lasix with gentle IV hydration try to clear lactic acidosis watching for fluid overload and resolving acidosis. Patient is stable with this regimen thus far. Qualifiers: Heart failure chronicity: chronic Qualified Code(s): I50.32 - Chronic diastolic (congestive) heart failure (4) ILD (interstitial lung disease): Status: Chronic Assessment and plan: Continue outpatient medical therapy and oxygen supplementation. She is steroid-dependent with daily prednisone dosing and will be given stress dosing steroids especially in this picture of early sepsis upon presentation. (5) CKD (chronic kidney disease): Status: Chronic Assessment and plan: This appears to be stable and labs will be trended with IV hydration and diuresis. Qualifiers: Chronic kidney disease stage: stage 3 (moderate) Chronic kidney disease stage 3 subtype: stage 3b (GFR 30-44) Qualified Code(s): N18.32 - Chronic kidney disease, stage 3b (6) Atrial fibrillation, chronic: Status: Chronic Assessment and plan: Well-controlled rate with metoprolol be adjusted up because of hypotension and tachycardia. Watch for low blood pressure. (7) HTN (hypertension): Status: Chronic Assessment and plan: Chronic and slightly exacerbated seeming to respond to acute treatment of early sepsis syndrome and advancing metoprolol. Monitor while in the ICU. Avoid vasopressors with the patient being a DNR/DNI. Qualifiers: Hypertension type: primary hypertension Qualified Code(s): I10 - Essential (primary) hypertension History of Present Illness History of Present Illness Chief Complaint: Shortness of breath with altered mental status in diagnostic imaging Narrative: This is an 82-year-old female patient who has been at a local facility rehabilitating after acute hospitalization recently at this facility. She has had problems with CHF and has had a rising BNP recently with increasing shortness of breath and especially dyspnea with exertion which she states was worse the last couple of days. While she was having an ultrasound with echocardiogram for update the day of presentation she became acutely short of breath and had altered mental status being sent to the emergency room for evaluation. There he was found to have an increasing BNP around 7500 recently now up to 9500 and chest x-ray revealed left lower lobe infiltrate with chronic interstitial disease. Patient does have known diastolic dysfunction CHF with a preserved left ventricular ejection fraction in 2021. Patient did receive 1 dose of IV Lasix in the ED and also was receiving gentle IV hydration because of increased lactate. Her mental status returned to baseline. She did not have hypotension and in fact was hypertensive in the ED without bradycardia until she came to the ICU where she has slight tachycardia just over 100. She did have a fever over 38 ?C in the ED which resolved. She did not have an elevated WBC and had a negative procalcitonin. She does not appear to be moving towards sepsis though she has some criteria upon admission and now is on IV antibiotic therapy for institution acquired pneumonia as well as adjustment of her medicines for her chronic atrial fibrillation with tachycardia and stress dose steroids because of daily dose of prednisone as an outpatient. She did respond to the extra dose of IV Lasix and this will be continued twice daily with follow-up on the reading of echocardiogram when available. Her creatinine is always slightly elevated and this will be trended with IV hydration watch for fluid overload. She is a DNR/DNI. Review of Systems Narrative: 13 point review of system positive for slight edema over ankles which is worsening recently but no weight gain noted. As stated she does have dyspnea on exertion which has been worsening but no chest pain or palpitations with her chronic atrial fibrillation. Otherwise unrevealing or stable. She does wish to return home rather than to the rehabilitation facility with discharge planning to manage this request. PFSH All Active Problems (Updated 02/16/23 @ 20:53 by Don Gomes) Lactic acidosis (Acute) CKD (chronic kidney disease) (Chronic) Pneumonia (Acute) Raynauds disease (Acute) Lower extremity edema (Acute) Weight loss (Acute) ILD (interstitial lung disease) (Chronic) Personal history of nicotine dependence (Acute) Abnormal chest x-ray (Acute) Pain, foot (Acute) Nail dystrophy (Acute) Corns and callosities (Acute) Diastolic heart failure (Chronic) Dyspnea (Acute) Tachycardia (Acute) Pre-diabetes (Acute) PVD (peripheral vascular disease) (Chronic) Lumbar radiculopathy (Acute) Anxiety (Chronic) COPD (chronic obstructive pulmonary disease) (Chronic) Atrial fibrillation, chronic (Chronic) HTN (hypertension) (Chronic) Claudication of left lower extremity (Chronic) Pulmonary emphysema (Chronic) PMR (polymyalgia rheumatica) (Chronic) Medical History UTI (urinary tract infection) Elevated troponin level not due to acute coronary syndrome Acute respiratory failure with hypoxia and hypercarbia Acute exacerbation of chronic obstructive pulmonary disease (COPD) B12 deficiency Elevated serum creatinine COVID-19 Hx of chronic cholecystitis Hx of carpal tunnel syndrome R side Dense breasts 2019. Category C. Normal mammogram. Dysuria (~10/2018) Limited range of motion of shoulder R sided. 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 + HR HPV beginning 2003. 2013 Pap Nl/HPV Neg 2015 Pap Nl/HPV + 2016 Pap Nl/HPV + ( Neg HPV 16 & 18) 2017 Pap Nl/HPV Neg 2020. Pap Nl/HPV Neg. Recommended stop screening paps. Surgical History History of cholecystectomy Hx laparoscopic cholecystectomy (~12/30/19) H/O: pt. denies, pt. states one child was born vaginally S/P cataract surgery S/P tubal ligation Social History Smoking/Tobacco Use Status: Former Tobacco Use Quit Date: 09/21/06 Tobacco: How many years used: 30 Smoking risk assessment performed?: Yes Alcohol Intake: current Alcohol Intake frequency: holidays/special occasions only Alcohol type: wine and hard liquor Drug use: Never Substance use type: does not use Details: alcohol: t-7 Household members: none and other Details: Lives alone at [address]. D x20 years Housing: custodial Number of Children: 5 number of grandchildren: 3 current occupation: Retired with 50 years [employer] Pets and animals: Yes (Jose Currie) Pets and animals: dog(s) Sexually active: No Current gender identity: female Do you feel safe at home: Yes Do you feel safe in your relationship?: Yes Additional Social history: Son-Arron. 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 Female Reproductive History Menstrual Menopause type: natural History History 6 Para Hx # Term Pregnancies 5 Multiple births Hx # Pregnancies Ectopic pregnancies AB induced Hx Number of Living Children AB spontaneous Meds Allergies and Home Medications Allergies Allergy/AdvReac Type Severity Reaction Status Date / Time pseudoephedrine HCl Allergy Intermediate Swelling/Ed Verified 02/16/23 12:22 [From [facility]] yuniel Sulfa (Sulfonamide Allergy itch/rash Verified 02/16/23 12:22 Antibiotics) erythromycin base AdvReac Intermediate GI upset Verified 02/16/23 12:22 codeine AdvReac hyper Verified 02/16/23 12:22 Home Medications Medication Instructions Recorded Confirmed Type acetaminophen 325 mg tablet 325 mg PO Q6H PRN 01/13/20 02/16/23 History (Tylenol) albuterol sulfate 90 mcg/actuation 2 puff inhalation Q6H PRN 05/17/21 02/16/23 History aerosol inhaler (Ventolin HFA) mecobalamin (vitamin B12) 10,000 1,000 mcg subcut [id number] 05/17/21 02/16/23 History mcg solution for injection potassium chloride 10 mEq 10 meq PO DAILY 07/13/21 02/16/23 History capsule,extended release albuterol sulfate 2.5 mg/3 mL 2.5 mg inhalation .Q 4-6H PRN 12/14/21 02/16/23 History (0.083 %) solution for nebulization tiotropium bromide 18 mcg capsule 18 mcg inhalation DAILY 02/07/22 02/16/23 History with inhalation device (Spiriva with HandiHaler) triamcinolone acetonide 0.1 % 1 applic topical BID 05/08/22 02/16/23 History topical cream metoprolol tartrate 25 mg tablet 12.5 mg PO BID 05/10/22 02/16/23 History furosemide 40 mg tablet 40 mg PO DAILY #90 tabs 07/17/22 02/16/23 Rx simvastatin 20 mg tablet 20 mg PO DAILY #14 tabs 12/31/22 02/16/23 Rx lorazepam 0.5 mg tablet 0.5 mg PO BID PRN anxiety 02/04/23 02/16/23 History apixaban 2.5 mg tablet (Eliquis) 2.5 mg PO BID #14 tabs 02/06/23 02/16/23 Rx digoxin 125 mcg (0.125 mg) tablet 0.0625 mg (1/2 x 125 mcg (0.125 02/06/23 02/16/23 Rx mg)) PO Q48H #7 tabs furosemide 40 mg tablet 40 mg PO DAILY #30 tabs 02/06/23 02/16/23 Rx lorazepam 0.5 mg tablet 0.5 mg PO BID PRN PRN Anxiety #60 02/06/23 02/16/23 Rx tabs melatonin 3 mg tablet 3 mg PO HS #30 tabs 02/06/23 02/16/23 Rx polyethylene glycol 3350 17 gram 17 g PO DAILY PRN PRN Constipation 02/06/23 02/16/23 Rx oral powder packet #30 ea prednisone 20 mg tablet 40 mg (2 x 20 mg) PO DAILY AM #15 02/06/23 02/16/23 Rx tabs Exam Narrative Exam Narrative: General: Patient appears appropriate for age, thinly built in no acute distress wearing her baseball cap lying in bed with her head at a 45 degree angle. She is alert and oriented to person, place and time. HEENT: Normocephalic, eyes with pupils equal react light symmetrically, extraocular movement intact and sclera anicteric. Oropharynx with moist mucosa. Neck: Supple without JVD. Back: Kyphotic without CVA tenderness. Lungs: Bronchovesicular breath sounds diffusely with decreased aeration of both bases and expiratory coarse crackles worse on the left than right but otherwise no focalizing rales. No increased expiratory phase or expiratory wheeze. Breast: Exam deferred. Heart: Irregularly irregular rhythm with tachycardic rate, no murmur or gallop appreciated. Abdomen: Scaphoid contour, soft nontender to palpation with no palpable hepatosplenomegaly. Bowel sounds positive in all quadrants. Genitalia/rectal: Exam deferred. Patient defers Figueroa catheter which was offered for comfort while diuresing. Extremities: Without clubbing, cyanosis and fair capillary refill. 1+ pitting edema right ankle with 2+ pitting edema left ankle and foot with patient having compression stockings in place. Skin: Normal color, warm and dry. Neuro: Cranial nerves II through XII gross intact, no focalizing motor deficits. No tremor. Psych: Normal affect and mood. No abnormal thought processes. Remote and recent memory appear to be grossly intact though patient was not challenged with questioning but this was observed in normal conversation. Results Imaging Imaging Studies: Date of Exam: 02/16/23 EXAM: XR CHEST 2V PA LATERAL CLINICAL HISTORY: fever, ams TECHNIQUE: 2D digital imaging was performed of the chest. Two images were obtained. PA and lateral views were obtained. COMPARISON: CR XR CHEST 2V PA LATERAL from 12/12/2021 CR,XR XR PORTABLE CHEST AP from 02/03/2023 FINDINGS: MEDIASTINUM: Normal. HEART: Normal. PULMONARY VASCULATURE: Normal. LUNGS: There is diffuse chronic pulmonary fibrosis. Increased lung markings are seen in the left base. PLEURAL SPACE: There are small bilateral pleural effusions. No pneumothorax is identified. BONE:Within normal limits for the patient's age. OTHER FINDINGS:Normal. IMPRESSION: 1. Increased lung markings in the left base which may represent a superimposed pneumonia or interstitial edema. 2. Small bilateral pleural effusions. 3. Diffuse chronic pulmonary fibrosis. Date of Exam: 05/03/21 EXAM: Comprehensive 2D, Doppler, and color-flow Echocardiogram Patient Location: Out-Patient Air Pollution Auditor: Irene Licea RDCS (AE) Indications: Atrial Fibrillation Other Information Study Quality: Adequate Conclusion Normal left ventricular wall thickness and chamber size. Estimated ejection fraction is approximately 55%. Wall motion is normal Normal right ventricular size and systolic function Both atria are moderately to severely dilated Mildly sclerotic trileaflet aortic valve without stenosis or regurgitation Normal mitral valve with moderate regurgitation Normal tricuspid valve with moderate regurgitation. Estimated right ventricular systolic pressure is 34 mmHg Atrial fibrillation was present throughout with an average heart rate of 125 Labs 02/16/23 11:56 02/16/23 11:56 Labs: Laboratory Results - last 24 hr 02/16/23 02/16/23 02/16/23 11:56 12:37 12:37 WBC 10.53 RBC 4.13 Hgb 12.7 Hct 41.6 MCV 101 H MCH 30.8 MCHC 30.5 L RDW 15.4 H Plt Count 118 L MPV 9.0 Immature Gran % 0.7 Neutrophils % 90.6 Lymphocytes % 3.6 Monocytes % 4.7 Eosinophils % 0.2 Basophils % 0.2 Nucleated RBC % 0.0 Absolute Neutrophils 9.55 H Absolute Lymphocytes 0.38 L Absolute Monocytes 0.49 Absolute Eosinophils 0.02 Absolute Basophils 0.02 VBG Lactate Sodium 139 Potassium 3.8 Chloride 100 Carbon Dioxide 35.0 H Anion Gap 4.0 BUN 28 H Creatinine 1.7 H Est GFR (CKD-EPI 2020) 30.13 Glucose 186 H Calcium 9.4 Magnesium 2.3 Total Bilirubin 1.8 H AST 50 H ALT 71 H Alkaline Phosphatase 83 Troponin I 83 H* NT-Pro-B Natriuret Pep 9699 H Total Protein 6.9 Albumin 3.5 Procalcitonin Urine Color Urine Clarity Urine pH Ur Specific Marshall Urine Protein Urine Ketones Urine Blood Urine Nitrite Urine Bilirubin Urine Urobilinogen Ur Leukocyte Esterase Urine RBC Urine WBC Ur Epithelial Cells Urine Crystals Urine Bacteria Urine Casts Urine Mucus Ur Culture Indicated? Urine Glucose Digoxin 0.84 L Urine Opiates Screen Urine Methadone Screen Ur Barbiturates Screen Ur Tricyclics Screen Ur Amphetamines Screen U Benzodiazepines Scrn Urine Cocaine Screen Ur THC Screen COVID-19 Source Cancelled Nasal/Nares SARS-CoV-2 (PCR) Cancelled Influenza Type A (PCR) Influenza Type B (PCR) RSV (PCR) 02/16/23 02/16/23 02/16/23 12:37 12:46 13:30 WBC RBC Hgb Hct MCV MCH MCHC RDW Plt Count MPV Immature Gran % Neutrophils % Lymphocytes % Monocytes % Eosinophils % Basophils % Nucleated RBC % Absolute Neutrophils Absolute Lymphocytes Absolute Monocytes Absolute Eosinophils Absolute Basophils VBG Lactate 2.6 H* Sodium Potassium Chloride Carbon Dioxide Anion Gap BUN Creatinine Est GFR (CKD-EPI 2020) Glucose Calcium Magnesium Total Bilirubin AST ALT Alkaline Phosphatase Troponin I NT-Pro-B Natriuret Pep Total Protein Albumin Procalcitonin < 0.1 Urine Color Yellow Urine Clarity Clear Urine pH 5.5 Ur Specific Marshall 1.020 Urine Protein Trace H Urine Ketones Negative Urine Blood Moderate H Urine Nitrite Negative Urine Bilirubin Negative Urine Urobilinogen 2.0 H Ur Leukocyte Esterase Negative Urine RBC 5-10 H Urine WBC Negative Ur Epithelial Cells Few Urine Crystals Negative Urine Bacteria Negative Urine Casts 0-2 Hyaline Urine Mucus Trace Ur Culture Indicated? No Urine Glucose Negative Digoxin Urine Opiates Screen Negative Urine Methadone Screen Negative Ur Barbiturates Screen Negative Ur Tricyclics Screen Negative Ur Amphetamines Screen Negative U Benzodiazepines Scrn Negative Urine Cocaine Screen Negative Ur THC Screen Negative COVID-19 Source SARS-CoV-2 (PCR) Negative Influenza Type A (PCR) Cancelled Influenza Type B (PCR) Cancelled RSV (PCR) Cancelled 02/16/23 17:35 WBC RBC Hgb Hct MCV MCH MCHC RDW Plt Count MPV Immature Gran % Neutrophils % Lymphocytes % Monocytes % Eosinophils % Basophils % Nucleated RBC % Absolute Neutrophils Absolute Lymphocytes Absolute Monocytes Absolute Eosinophils Absolute Basophils VBG Lactate 2.3 H* Sodium Potassium Chloride Carbon Dioxide Anion Gap BUN Creatinine Est GFR (CKD-EPI 2020) Glucose Calcium Magnesium Total Bilirubin AST ALT Alkaline Phosphatase Troponin I NT-Pro-B Natriuret Pep Total Protein Albumin Procalcitonin Urine Color Urine Clarity Urine pH Ur Specific Marshall Urine Protein Urine Ketones Urine Blood Urine Nitrite Urine Bilirubin Urine Urobilinogen Ur Leukocyte Esterase Urine RBC Urine WBC Ur Epithelial Cells Urine Crystals Urine Bacteria Urine Casts Urine Mucus Ur Culture Indicated? Urine Glucose Digoxin Urine Opiates Screen Urine Methadone Screen Ur Barbiturates Screen Ur Tricyclics Screen Ur Amphetamines Screen U Benzodiazepines Scrn Urine Cocaine Screen Ur THC Screen COVID-19 Source SARS-CoV-2 (PCR) Influenza Type A (PCR) Influenza Type B (PCR) RSV (PCR) Last Vital Signs Temp 38.2 C H 02/16/23 12:17 Pulse 100 H 02/16/23 19:54 Resp 15 02/16/23 12:17 BP 154/104 H 02/16/23 19:54 Pulse Ox 96 02/16/23 19:54 Time Spent Time spent with Patient: >75 minutes Time was spent: preparing to see the patient(eg.review tests), obtaining and/or reviewing separately otained hiistory, ordering medications,tests, procedures, referring, communicating with other health healthcare financial analyst, indepentently interpreting results and care coordination
[2023-02-16] MEDS: Acetaminophen 500 MG TAB 1000 MG PO (21:05)
[2023-02-16] MEDS: Albuterol/Ipratropium 3 ML UPD VIAL (22:05)
--- NOTE | 2023-02-16 22:12 | W.PC.ACHO ---
Registration Status: REG ER Primary Language: Preferred Language: Azeri ED Information & Data Chief Complaint AMS/LOC 02/16/23 12:17 Chief Complaint AMS/LOC 02/16/23 12:03 Triage Note [facility] states that the PT 02/16/23 11:18 was at diagnostic imaging today and the PT stated that she wanted to go to the ED for assessment. Apparent change in mental status ( increased confusion) Medical / Surgical History (Last Reviewed 02/16/23 @ 20:46 by Don Gomes) UTI (urinary tract infection) Elevated troponin level not due to acute coronary syndrome Acute respiratory failure with hypoxia and hypercarbia Acute exacerbation of chronic obstructive pulmonary disease (COPD) B12 deficiency Elevated serum creatinine COVID-19 Hx of chronic cholecystitis Hx of carpal tunnel syndrome Dense breasts Dysuria (~10/2018) Limited range of motion of shoulder High risk human papilloma virus (HPV) infection of cervix (Last Reviewed 02/16/23 @ 20:46 by Don Gomes) History of cholecystectomy Hx laparoscopic cholecystectomy (~12/30/19) H/O: S/P cataract surgery S/P tubal ligation Most Recent Vital Signs Temperature 38.2 C H 02/16/23 12:17 Temperature Source Tympanic 02/16/23 12:17 Pulse 84 02/16/23 21:46 Respiratory Rate 15 02/16/23 12:17 Respiratory Effort Normal 02/16/23 12:17 Respiratory Depth Normal 02/16/23 12:17 Respiratory Pattern Normal 02/16/23 12:17 Blood Pressure 156/70 H 02/16/23 21:46 Blood Pressure Mean 102 02/16/23 21:46 Blood Pressure Position Sitting 02/16/23 12:17 Pulse Oximetry 95 02/16/23 21:50 Oxygen Delivery Method Nasal Cannula 02/16/23 19:54 Oxygen Flow Rate 5 02/16/23 19:54 Pain Level 0 02/16/23 12:17 Allergies pseudoephedrine HCl [From Sudafed] Allergy (Intermediate, Verified 02/16/23 12:22) Swelling/Edema lip Sulfa (Sulfonamide Antibiotics) Allergy (Verified 02/16/23 12:22) itch/rash erythromycin base Adverse Reaction (Intermediate, Verified 02/16/23 12:22) GI upset codeine Adverse Reaction (Verified 02/16/23 12:22) hyper Active Medications Generic Name Dose Route Start Last Admin Trade Name Patel PRN Reason Stop Dose Admin Cefepime HCl 1 gm/ Sodium 50 mls @ 100 mls/hr 02/16/23 13:30 02/16/23 14:15 Chloride IVPB Infused Q8H SAEED Infusion Sodium Chloride 1,000 mls @ 125 mls/hr 02/16/23 13:30 02/16/23 19:30 Saline 1000ml Bag IV Infused INFUSION SAEED Infusion IV IV Catheter Type [Left Saline Lock Antecubital] IV Catheter Gauge [Left 18 Antecubital] Diet Orders Category Date Time Status Heart Healthy Eating [DIET] Nutrition 02/17/23 Breakfast Ordered Diagnostics 02/16/23 02/16/23 02/16/23 Range/Units 21:01 17:35 13:30 WBC (4.4-10.8) 10^3/uL RBC (3.93-5.22) 10^6/uL Hgb (11.2-15.7) g/dL Hct (36.0-46.0) % MCV (80-95) fL MCH (27.0-33.0) pg MCHC (32.0-36.0) % RDW (11.7-14.6) % Plt Count (130-400) 10^3/uL MPV (8.0-11.0) fL Immature Gran % Neutrophils % Lymphocytes % Monocytes % Eosinophils % Basophils % Nucleated RBC % (0.0-0.3) % Absolute Neutrophils (1.2-6.7) 10^3/uL Absolute Lymphocytes (1.2-3.4) 10^3/uL Absolute Monocytes (0.1-0.8) 10^3/uL Absolute Eosinophils (0.0-0.7) 10^3/uL Absolute Basophils (0.0-0.2) 10^3/uL VBG Lactate 2.3 H* (0.6-1.4) mmol/L Sodium (136-145) mmol/L Potassium (3.5-5.1) mmol/L Chloride (98-107) mmol/L Carbon Dioxide (21.0-32.0) mmol/L Anion Gap (3-11) mmol/L BUN (7-18) mg/dL Creatinine (0.55-1.02) mg/dL Est GFR (CKD-EPI 2020) (mL/min/1.73m2) Glucose (74-106) mg/dL Calcium (8.5-10.1) mg/dL Magnesium (1.8-2.4) mg/dL Total Bilirubin (0.2-1.0) mg/dL AST (15-37) U/L ALT (14-59) U/L Alkaline Phosphatase (46-116) U/L Troponin I (<or=60) ng/L NT-Pro-B Natriuret Pep (<300) pg/mL Total Protein (6.4-8.2) g/dL Albumin (3.4-5.0) g/dL Procalcitonin ng/mL TSH Pending Urine Color Yellow (Yellow) Urine Clarity Clear (Clear) Urine pH 5.5 (5-8) Ur Specific [place] 1.020 (1.005-1.025) Urine Protein Trace H (Negative) mg/dL Urine Ketones Negative (Negative) mg/dL Urine Blood Moderate H (Negative) Urine Nitrite Negative (Negative) Urine Bilirubin Negative (Negative) Urine Urobilinogen 2.0 H (Up to 0.2) mg/dL Ur Leukocyte Esterase Negative (Negative) Urine RBC 5-10 H (0-2) HPF Urine WBC Negative (0-5) HPF Ur Epithelial Cells Few (Negative) HPF Urine Crystals Negative (Negative) HPF Urine Bacteria Negative (Negative) HPF Urine Casts 0-2 Hyaline (Negative) LPF Urine Mucus Trace (Negative) Ur Culture Indicated? No Urine Glucose Negative (Negative) mg/dL Digoxin (0.90-2.00) ng/mL Urine Opiates Screen Negative (Negative) Urine Methadone Screen Negative (Negative) Ur Barbiturates Screen Negative (Negative) Ur Tricyclics Screen Negative (Negative) Ur Amphetamines Screen Negative (Negative) U Benzodiazepines Scrn Negative (Negative) Urine Cocaine Screen Negative (Negative) Ur THC Screen Negative (Negative) COVID-19 Source SARS-CoV-2 (PCR) Influenza Type A (PCR) Influenza Type B (PCR) RSV (PCR) 02/16/23 02/16/23 02/16/23 Range/Units 12:46 12:37 12:37 WBC (4.4-10.8) 10^3/uL RBC (3.93-5.22) 10^6/uL Hgb (11.2-15.7) g/dL Hct (36.0-46.0) % MCV (80-95) fL MCH (27.0-33.0) pg MCHC (32.0-36.0) % RDW (11.7-14.6) % Plt Count (130-400) 10^3/uL MPV (8.0-11.0) fL Immature Gran % Neutrophils % Lymphocytes % Monocytes % Eosinophils % Basophils % Nucleated RBC % (0.0-0.3) % Absolute Neutrophils (1.2-6.7) 10^3/uL Absolute Lymphocytes (1.2-3.4) 10^3/uL Absolute Monocytes (0.1-0.8) 10^3/uL Absolute Eosinophils (0.0-0.7) 10^3/uL Absolute Basophils (0.0-0.2) 10^3/uL VBG Lactate 2.6 H* (0.6-1.4) mmol/L Sodium (136-145) mmol/L Potassium (3.5-5.1) mmol/L Chloride (98-107) mmol/L Carbon Dioxide (21.0-32.0) mmol/L Anion Gap (3-11) mmol/L BUN (7-18) mg/dL Creatinine (0.55-1.02) mg/dL Est GFR (CKD-EPI 2020) (mL/min/1.73m2) Glucose (74-106) mg/dL Calcium (8.5-10.1) mg/dL Magnesium (1.8-2.4) mg/dL Total Bilirubin (0.2-1.0) mg/dL AST (15-37) U/L ALT (14-59) U/L Alkaline Phosphatase (46-116) U/L Troponin I (<or=60) ng/L NT-Pro-B Natriuret Pep (<300) pg/mL Total Protein (6.4-8.2) g/dL Albumin (3.4-5.0) g/dL Procalcitonin < 0.1 ng/mL TSH Urine Color (Yellow) Urine Clarity (Clear) Urine pH (5-8) Ur Specific [place] (1.005-1.025) Urine Protein (Negative) mg/dL Urine Ketones (Negative) mg/dL Urine Blood (Negative) Urine Nitrite (Negative) Urine Bilirubin (Negative) Urine Urobilinogen (Up to 0.2) mg/dL Ur Leukocyte Esterase (Negative) Urine RBC (0-2) HPF Urine WBC (0-5) HPF Ur Epithelial Cells (Negative) HPF Urine Crystals (Negative) HPF Urine Bacteria (Negative) HPF Urine Casts (Negative) LPF Urine Mucus (Negative) Ur Culture Indicated? Urine Glucose (Negative) mg/dL Digoxin (0.90-2.00) ng/mL Urine Opiates Screen (Negative) Urine Methadone Screen (Negative) Ur Barbiturates Screen (Negative) Ur Tricyclics Screen (Negative) Ur Amphetamines Screen (Negative) U Benzodiazepines Scrn (Negative) Urine Cocaine Screen (Negative) Ur THC Screen (Negative) COVID-19 Source Nasal/Nares SARS-CoV-2 (PCR) Negative Cancelled Influenza Type A (PCR) Cancelled Influenza Type B (PCR) Cancelled RSV (PCR) Cancelled 02/16/23 02/16/23 Range/Units 12:37 11:56 WBC 10.53 (4.4-10.8) 10^3/uL RBC 4.13 (3.93-5.22) 10^6/uL Hgb 12.7 (11.2-15.7) g/dL Hct 41.6 (36.0-46.0) % MCV 101 H (80-95) fL MCH 30.8 (27.0-33.0) pg MCHC 30.5 L (32.0-36.0) % RDW 15.4 H (11.7-14.6) % Plt Count 118 L (130-400) 10^3/uL MPV 9.0 (8.0-11.0) fL Immature Gran % 0.7 Neutrophils % 90.6 Lymphocytes % 3.6 Monocytes % 4.7 Eosinophils % 0.2 Basophils % 0.2 Nucleated RBC % 0.0 (0.0-0.3) % Absolute Neutrophils 9.55 H (1.2-6.7) 10^3/uL Absolute Lymphocytes 0.38 L (1.2-3.4) 10^3/uL Absolute Monocytes 0.49 (0.1-0.8) 10^3/uL Absolute Eosinophils 0.02 (0.0-0.7) 10^3/uL Absolute Basophils 0.02 (0.0-0.2) 10^3/uL VBG Lactate (0.6-1.4) mmol/L Sodium 139 (136-145) mmol/L Potassium 3.8 (3.5-5.1) mmol/L Chloride 100 (98-107) mmol/L Carbon Dioxide 35.0 H (21.0-32.0) mmol/L Anion Gap 4.0 (3-11) mmol/L BUN 28 H (7-18) mg/dL Creatinine 1.7 H (0.55-1.02) mg/dL Est GFR (CKD-EPI 2020) 30.13 (mL/min/1.73m2) Glucose 186 H (74-106) mg/dL Calcium 9.4 (8.5-10.1) mg/dL Magnesium 2.3 (1.8-2.4) mg/dL Total Bilirubin 1.8 H (0.2-1.0) mg/dL AST 50 H (15-37) U/L ALT 71 H (14-59) U/L Alkaline Phosphatase 83 (46-116) U/L Troponin I 83 H* (<or=60) ng/L NT-Pro-B Natriuret Pep 9699 H (<300) pg/mL Total Protein 6.9 (6.4-8.2) g/dL Albumin 3.5 (3.4-5.0) g/dL Procalcitonin ng/mL TSH Urine Color (Yellow) Urine Clarity (Clear) Urine pH (5-8) Ur Specific [place] (1.005-1.025) Urine Protein (Negative) mg/dL Urine Ketones (Negative) mg/dL Urine Blood (Negative) Urine Nitrite (Negative) Urine Bilirubin (Negative) Urine Urobilinogen (Up to 0.2) mg/dL Ur Leukocyte Esterase (Negative) Urine RBC (0-2) HPF Urine WBC (0-5) HPF Ur Epithelial Cells (Negative) HPF Urine Crystals (Negative) HPF Urine Bacteria (Negative) HPF Urine Casts (Negative) LPF Urine Mucus (Negative) Ur Culture Indicated? Urine Glucose (Negative) mg/dL Digoxin 0.84 L (0.90-2.00) ng/mL Urine Opiates Screen (Negative) Urine Methadone Screen (Negative) Ur Barbiturates Screen (Negative) Ur Tricyclics Screen (Negative) Ur Amphetamines Screen (Negative) U Benzodiazepines Scrn (Negative) Urine Cocaine Screen (Negative) Ur THC Screen (Negative) COVID-19 Source Cancelled SARS-CoV-2 (PCR) Influenza Type A (PCR) Influenza Type B (PCR) RSV (PCR) 02/16/23 12:55 Blood Culture - Pending Blood 02/16/23 12:46 Blood Culture - Pending Blood Intake and Output - 24 Hour Total 02/16/23 11:11 thru 02/16/23 19:30 Intake Total 1050 Balance 1050 Weight 61.235 kg Intake: IV 1050 Falls Risk Assessment History of Falls Previous History 02/16/23 12:17 Contributing Factors Confusion,Impairments, 02/16/23 12:17 Incontinence Ambulatory Aids Uses ambulatory device 02/16/23 12:17 Tubes/Lines None 02/16/23 12:17 Gait Evaluation W/any additional score 02/16/23 12:17 Cognition Cognitive impairment 02/16/23 12:17 Fall Total Score 74 02/16/23 12:17 Level of Risk High Risk 02/16/23 12:17 Problems (Last Reviewed 02/16/23 @ 20:46 by Don Gomes) Lactic acidosis (Acute) CKD (chronic kidney disease) (Chronic) Pneumonia (Acute) ILD (interstitial lung disease) (Chronic) Diastolic heart failure (Chronic) Atrial fibrillation, chronic (Chronic) HTN (hypertension) (Chronic) v v v v v v v v v Sending and/or Receiving Nurses: Please use comment section below to note any information pertinent to the patient hand-off not included above. Information / Comments: Per family patient has dementia with increased confusion at times and s. Report received from: Meet aMrtinez, EMT-P
[2023-02-17] VITALS (68 sets, daily range): BP systolic 125–175; BP diastolic 59–129; PULSE 59–121; RESP 14–31; TEMP 36–36.8; O2SAT 86–99
[2023-02-17] MEDS: Hydrocortisone SOD SUC. 100 MG VIAL IVP ×3 (00:59→13:48)
[2023-02-17] MEDS: Melatonin 3 MG TAB PO ×2 (01:00→20:01)
[2023-02-17] MEDS: Normal Saline 1,000 ML 125 ML IV (01:00)
[2023-02-17] MEDS: CEFEPIME 1 GM in Normal Saline 50 ML IVPB ×3 (01:44→16:25)
[2023-02-17] MEDS: Water,Injection,Sterile 10 ML VIAL (02:46)
[2023-02-17] MEDS: VANCOMYCIN 1,500 MG in Normal Saline 250 ML 166.667 MG IVPB (02:48)
[2023-02-17] MEDS: LORazepam 0.5 MG TAB PO ×3 (04:50→19:45)
[2023-02-17 06:04] LABS: HCT 37.5 % (36.0-46.0); HGB 11.4 g/dL (11.2-15.7); MCH 30.6 pg (27.0-33.0); MCHC 30.4 % (32.0-36.0); MCV 101 fL (80-95); MPV 9.8 fL (8.0-11.0); Platelet Count 116 10^3/uL (130-400); RBC 3.73 10^6/uL (3.93-5.22); RDW 15.3 % (11.7-14.6); RDW-SD 55.8 fL; WBC 11.11 10^3/uL (4.4-10.8)
[2023-02-17 06:06] LABS: Lactate 2.6 mmol/L (0.6-1.4)
[2023-02-17 06:32] LABS: ALT 62 U/L (14-59); AST 46 U/L (15-37); Albumin 3.2 g/dL (3.4-5.0); Alkaline Phosphatase 70 U/L (46-116); Anion Gap 6.3 mmol/L (3-11); BUN 27 mg/dL (7-18); CO2 31.7 mmol/L (21.0-32.0); CREATININE 1.8 mg/dL (0.55-1.02); Calcium 8.9 mg/dL (8.5-10.1); Chloride 102 mmol/L (98-107); Estimated GFR 28.13 (mL/min/1.73m2); Glucose 147 mg/dL (74-106); Magnesium 2.1 mg/dL (1.8-2.4); Potassium 3.7 mmol/L (3.5-5.1); Sodium 140 mmol/L (136-145); Total Protein 6.3 g/dL (6.4-8.2)
[2023-02-17 06:41] LABS: TSH (W/Ref FT4) 1.06 uIU/mL (0.36-3.74)
[2023-02-17] MEDS: Normal Saline Flush 10 ML SYR IVP ×2 (07:01→19:46)
--- NOTE | 2023-02-17 08:00 | RT.EKG_ITS ---
APPROVED REPORT Exam: Resting ECG Reason for Exam: CHF, elevated troponin I Patient Location: I HR:128 bpm ECG Measurements Heart Rate 128 AXIS DE [id number] P [id number] QRSd 119 QRS 77 QT 328 T -61 QTc 479 Conclusion Atrial fibrillation...? atrial activity Incomplete right bundle branch block...QRSd >112, terminal axis(90,270) ST depr, consider ischemia, anterior leads...ST <-0.10mV, V2-V4
[2023-02-17] MEDS: Albuterol 2.5 MG/3 ML INH SOLN VIAL UPD (08:23)
[2023-02-17 08:31] LABS: Lab Add On Test DONE
[2023-02-17 08:52] LABS: C-Reactive Protein 1.31 mg/dL (0.0-0.3)
--- NOTE | 2023-02-17 08:53 | W.PM.PROGNOT ---
Date of Service Date of service: 02/17/23 Time of Service: 08:53 Assessment and Plan Assessment and plan (1) Diastolic heart failure: Status: Chronic Assessment and plan: stop iv fluids. She is in grade III diastolic HF w/ elevated filling pressures per her echo findings. She needs diuresis. I have added diuril and have put her on lasix drip. Once she is euvolemic, then can add Jardiance. I have added spironolactone now to help prevent hypokalemia and to get her on goal directed therapy for her CHF. Critical care time spent interviewing and examining the patient, reviewing studies, discussing case with patient's nurse and consulting physicians was 60 minutes. Case discussed with nursing staff as well as family members Qualifiers: Heart failure chronicity: chronic Qualified Code(s): I50.32 - Chronic diastolic (congestive) heart failure (2) Atrial fibrillation, chronic: Status: Chronic Assessment and plan: not well controlled. She has been on homeopathic doses of digoxin as she had prior digoxin toxicity. I have stopped her digoxin. In light of HFPEF and LVH she does not need digoxin and in fact her afib rate is better controlled using BB or CCB. (3) Pneumonia: Start date: 02/16/23 Status: Acute Assessment and plan: CXR suggests developing infilrated in LLL, she did have a fever T max 38.2 last night and mild leukocytosis w/ increased neutrophils, but normal procalcitionin. She had blood cultures taken but no UA or urine cultures. I have ordered urine for UA w/ reflex culture. She was begun on cefepime and vancomcyin. I will check MRSA screen and if negative then stop vancomycin. Qualifiers: Pneumonia type: due to unspecified organism Laterality: left Lung location: lower lobe of lung Qualified Code(s): J18.9 - Pneumonia, unspecified organism (4) Lactic acidosis: Start date: 02/16/23 Status: Acute Assessment and plan: lactic acidosis is likely d/t ischemia from pneumonia, acute exacerbation of CHF, rapid atrial fibrillation, ACS was not ruled out last night as serial troponin and EKG were not done. I had her trononin and EKG repeated this morning. I did ECG demonstrates rapid atrial fibrillation rate 120 bpm incomplete right bundle branch block with nonspecific ST changes in the inferior leads that were not present last night EKG. She has concordant ST-T wave changes across the anterior leads consistent with right bundle branch block She did not need iv fluids and I have asked nursing to stop the normal saline (her nurse actually held this prior to my orders as he correctly assessed her acute CHF). I have begun her on lasix drip and diltiazem drip to conrol her atrial fibrillation and treate her acute exacerbation of her CHF. will monitor her lactate level and troponin and her diuresis (5) ILD (interstitial lung disease): Status: Chronic Assessment and plan: Continue outpatient medical therapy and oxygen supplementation. She is steroid-dependent with daily prednisone dosing and will be given stress dosing steroids especially in this picture of early sepsis upon presentation. (6) CKD (chronic kidney disease): Status: Chronic Assessment and plan: This appears to be stable and labs will be trended with IV hydration and diuresis. Qualifiers: Chronic kidney disease stage: stage 3 (moderate) Chronic kidney disease stage 3 subtype: stage 3b (GFR 30-44) Qualified Code(s): N18.32 - Chronic kidney disease, stage 3b (7) HTN (hypertension): Status: Chronic Assessment and plan: BP elevated but will control w/ BB and diltiazem and diuretics. When euvolemic, should trial DES-I or ARB Qualifiers: Hypertension type: primary hypertension Qualified Code(s): I10 - Essential (primary) hypertension (8) DVT prophylaxis: Status: Acute Assessment and plan: Patient currently apixaban chronically for A-fib. Subjective Subjective Interval history since last seen: Rehan states that she has increased shortness of breath this morning. She denies any chest pain or pressure palpitations although her rhythm is atrial fibrillation rate in the 110s. BP is elevated this morning. She has a moist cough with bringing up clear to white mucus. She is afebrile this morning. She was admitted last night for acute exacerbation of chronic HFpEF along with possible healthcare acquired pneumonia. Procalcitonin level was normal but her white count was mildly elevated and she had a low-grade fever of 38.2 last night. Blood cultures were obtained and she was started on cefepime and vancomycin. She was put on IV Lasix. Unfortunately she was also kept on normal saline at 125 mL/h in spite of her proBNP being greater than 9000. She also has underlying interstitial lung disease. Exam Narrative Exam Narrative: Rehan is alert she is oriented to person place and circumstance but she does have some confusion. She is very anxious and feels dyspneic. Her granddaughter who is an IT LEAD works on medical/surgical floor came to the ICU to help calm her grandmother down while nursing staff placed a Figueroa catheter. Lungs with coarse bilateral basilar rales Heart is irregularly irregular tachycardic with systolic murmur over the apex consistent with mitral vegetation Abdomen soft nontender Lower extremities with trace of edema. Objective Last Vital Signs Temp 36.6 C 02/17/23 03:19 Pulse 86 02/17/23 04:01 Resp 22 02/17/23 06:30 BP 158/61 H 02/17/23 04:01 Pulse Ox 99 02/17/23 06:30 Laboratory Results - last 24 hr 02/16/23 02/16/23 02/16/23 11:56 12:37 12:37 WBC 10.53 RBC 4.13 Hgb 12.7 Hct 41.6 MCV 101 H MCH 30.8 MCHC 30.5 L RDW 15.4 H Plt Count 118 L MPV 9.0 Immature Gran % 0.7 Neutrophils % 90.6 Lymphocytes % 3.6 Monocytes % 4.7 Eosinophils % 0.2 Basophils % 0.2 Nucleated RBC % 0.0 Absolute Neutrophils 9.55 H Absolute Lymphocytes 0.38 L Absolute Monocytes 0.49 Absolute Eosinophils 0.02 Absolute Basophils 0.02 VBG Lactate Sodium 139 Potassium 3.8 Chloride 100 Carbon Dioxide 35.0 H Anion Gap 4.0 BUN 28 H Creatinine 1.7 H Est GFR (CKD-EPI 2020) 30.13 Glucose 186 H Calcium 9.4 Magnesium 2.3 Total Bilirubin 1.8 H AST 50 H ALT 71 H Alkaline Phosphatase 83 Troponin I 83 H* NT-Pro-B Natriuret Pep 9699 H Total Protein 6.9 Albumin 3.5 Procalcitonin TSH Urine Color Urine Clarity Urine pH Ur Specific [place] Urine Protein Urine Ketones Urine Blood Urine Nitrite Urine Bilirubin Urine Urobilinogen Ur Leukocyte Esterase Urine RBC Urine WBC Ur Epithelial Cells Urine Crystals Urine Bacteria Urine Casts Urine Mucus Ur Culture Indicated? Urine Glucose Digoxin 0.84 L Urine Opiates Screen Urine Methadone Screen Ur Barbiturates Screen Ur Tricyclics Screen Ur Amphetamines Screen U Benzodiazepines Scrn Urine Cocaine Screen Ur THC Screen COVID-19 Source Cancelled Nasal/Nares SARS-CoV-2 (PCR) Cancelled Influenza Type A (PCR) Influenza Type B (PCR) RSV (PCR) Add-On Test Request 02/16/23 02/16/23 02/16/23 12:37 12:46 13:30 WBC RBC Hgb Hct MCV MCH MCHC RDW Plt Count MPV Immature Gran % Neutrophils % Lymphocytes % Monocytes % Eosinophils % Basophils % Nucleated RBC % Absolute Neutrophils Absolute Lymphocytes Absolute Monocytes Absolute Eosinophils Absolute Basophils VBG Lactate 2.6 H* Sodium Potassium Chloride Carbon Dioxide Anion Gap BUN Creatinine Est GFR (CKD-EPI 2020) Glucose Calcium Magnesium Total Bilirubin AST ALT Alkaline Phosphatase Troponin I NT-Pro-B Natriuret Pep Total Protein Albumin Procalcitonin < 0.1 TSH Urine Color Yellow Urine Clarity Clear Urine pH 5.5 Ur Specific [place] 1.020 Urine Protein Trace H Urine Ketones Negative Urine Blood Moderate H Urine Nitrite Negative Urine Bilirubin Negative Urine Urobilinogen 2.0 H Ur Leukocyte Esterase Negative Urine RBC 5-10 H Urine WBC Negative Ur Epithelial Cells Few Urine Crystals Negative Urine Bacteria Negative Urine Casts 0-2 Hyaline Urine Mucus Trace Ur Culture Indicated? No Urine Glucose Negative Digoxin Urine Opiates Screen Negative Urine Methadone Screen Negative Ur Barbiturates Screen Negative Ur Tricyclics Screen Negative Ur Amphetamines Screen Negative U Benzodiazepines Scrn Negative Urine Cocaine Screen Negative Ur THC Screen Negative COVID-19 Source SARS-CoV-2 (PCR) Negative Influenza Type A (PCR) Cancelled Influenza Type B (PCR) Cancelled RSV (PCR) Cancelled Add-On Test Request 02/16/23 02/17/23 17:35 05:44 WBC 11.11 H RBC 3.73 L Hgb 11.4 Hct 37.5 MCV 101 H MCH 30.6 MCHC 30.4 L RDW 15.3 H Plt Count 116 L MPV 9.8 Immature Gran % Neutrophils % Lymphocytes % Monocytes % Eosinophils % Basophils % Nucleated RBC % Absolute Neutrophils Absolute Lymphocytes Absolute Monocytes Absolute Eosinophils Absolute Basophils VBG Lactate 2.3 H* 2.6 H* Sodium 140 Potassium 3.7 Chloride 102 Carbon Dioxide 31.7 Anion Gap 6.3 BUN 27 H Creatinine 1.8 H Est GFR (CKD-EPI 2020) 28.13 Glucose 147 H Calcium 8.9 Magnesium 2.1 Total Bilirubin 2.0 H AST 46 H ALT 62 H Alkaline Phosphatase 70 Troponin I NT-Pro-B Natriuret Pep Total Protein 6.3 L Albumin 3.2 L Procalcitonin TSH 1.06 Urine Color Urine Clarity Urine pH Ur Specific [place] Urine Protein Urine Ketones Urine Blood Urine Nitrite Urine Bilirubin Urine Urobilinogen Ur Leukocyte Esterase Urine RBC Urine WBC Ur Epithelial Cells Urine Crystals Urine Bacteria Urine Casts Urine Mucus Ur Culture Indicated? Urine Glucose Digoxin Urine Opiates Screen Urine Methadone Screen Ur Barbiturates Screen Ur Tricyclics Screen Ur Amphetamines Screen U Benzodiazepines Scrn Urine Cocaine Screen Ur THC Screen COVID-19 Source SARS-CoV-2 (PCR) Influenza Type A (PCR) Influenza Type B (PCR) RSV (PCR) Add-On Test Request DONE Reviewed Pertinent PMH: Yes Objective Narrative Objective Narrative: Echocardiogram report from yesterday is still pending however I have reviewed the images and the hemodynamics. Patient has severe pulmonary hypertension, estimated RVSP of 68, moderate tricuspid regurgitation and moderate mitral regurgitation. She has an elevated estimated right atrial pressure of 15 cm based on her dilated IVC and lack of inspiratory collapsibility. LVEF 50% borderline low normal to mild impairment, her diastology is consistent w/ impaired relaxation w/ elevated LAP i.e. grade III diastolic dysfunction. Time Spent with Patient Time Spent with Patient: >50 minutes Time was spent: preparing to see the patient(eg.review tests), ordering medications,tests, procedures, referring, communicating with other health child care center administrator, indepentently interpreting results, counseling the patient (And granddaughter) and care coordination
[2023-02-17 08:56] LABS: Troponin I 78 ng/L (<or=60)
[2023-02-17] MEDS: Apixaban 2.5 MG TAB PO ×2 (09:21→19:46)
[2023-02-17] MEDS: Potassium Chloride 10 MEQ CAPCR PO (09:22)
[2023-02-17] MEDS: Metoprolol 12.5 MG TAB 25 MG PO ×2 (09:22→19:45)
[2023-02-17] MEDS: guaiFENesin 600 MG TABCR PO ×2 (09:23→19:46)
[2023-02-17] MEDS: Spironolactone 25 MG TAB PO (09:23)
--- NOTE | 2023-02-17 09:33 | INITIAL_ITS ---
Date of service: 02/17/23 Time of Service: 09:33 Care Management Initial Assmt Initial Assessment REASON FOR HOSPITALIZATION:: Pneumonia, lactic acidosis PREVIOUS FUNCTIONAL STATUS/SOCIAL/FAMILY SUPPORTS:: Rehan resides in [place], although she was recently placed at [facility] after a brief hospitalization. Her daughter in law has petitioned for voluntary guardianship, and was provided a jail SUSANA application during Rehan's previous hospitalization. Rehan will likely transition to jail care at [facility]; her daughter in law, Jessica, is coordinating this plan with the facility. Rehan requires support with ADL's. CURRENT FUNCTIONAL STATUS:: Rehan was sitting up in her chair eating lunch when CM met with her. She stated that she has been at [facility] and rehab for about a week, and she has had some difficulty settling in. She stated that it is too hot, she has trouble sleeping, and the staff is not always attentive to her needs. CM notes that it can be a difficult transition to go from home to a facility, to which Rehan agreed. CM discussed discharge planning considerations, as she is a current patient of [facility], her plan will be to return once she is medically stable. Rehan expressed understanding of this, and stated that she has support from her daughter in law and granddaughter to move to a different facility if she decides that [facility] is not a good fit. She stated that her granddaughter works at [facility], and she is able to visit with her there. CM will continue to follow. ADVANCE DIRECTIVES:: Not on file at [facility]. Has patient been provided with info about the portal/API?: Yes Did the patient sign up for the portal?: No CODE STATUS:: DNR/DNI INSURANCE COVERAGE / FINANCIAL ISSUES:: MCR. SUSANA. CURRENT HOME/COMMUNITY SERVICES/EQUIPMENT:: Rehan is currently receiving care at [facility] PRIMARY CARE PHYSICIAN:: Raquel Martin POTENTIAL DISCHARGE NEEDS:: Coordinated return to [facility] PATIENT/FAMILY EDUCATION NEEDS:: Review discharge instructions and limitations, discussion of self care needs including ask me three. ANTICIPATED BARRIERS TO DISCHARGE:: None identified at this time. TRANSPORTATION:: Via facility w/c van PLAN:: Anticipate Rehan will return to [facility] once she is medically cleared by MD. CM will coordinate transport with the facility w/c van. She will follow up with her PCP and discharge plan of care. CM will continue to follow. PFSH All Active Problems (Updated 02/17/23 @ 10:06 by Ever Gray MD) DVT prophylaxis (Acute) Lactic acidosis (Acute) CKD (chronic kidney disease) (Chronic) Pneumonia (Acute) Raynauds disease (Acute) Lower extremity edema (Acute) Weight loss (Acute) ILD (interstitial lung disease) (Chronic) Personal history of nicotine dependence (Acute) Abnormal chest x-ray (Acute) Pain, foot (Acute) Nail dystrophy (Acute) Corns and callosities (Acute) Diastolic heart failure (Chronic) Dyspnea (Acute) Tachycardia (Acute) Pre-diabetes (Acute) PVD (peripheral vascular disease) (Chronic) Lumbar radiculopathy (Acute) Anxiety (Chronic) COPD (chronic obstructive pulmonary disease) (Chronic) Atrial fibrillation, chronic (Chronic) HTN (hypertension) (Chronic) Claudication of left lower extremity (Chronic) Pulmonary emphysema (Chronic) PMR (polymyalgia rheumatica) (Chronic) Medical History UTI (urinary tract infection) Elevated troponin level not due to acute coronary syndrome Acute respiratory failure with hypoxia and hypercarbia Acute exacerbation of chronic obstructive pulmonary disease (COPD) B12 deficiency Elevated serum creatinine COVID-19 Hx of chronic cholecystitis Hx of carpal tunnel syndrome R side Dense breasts 2019. Category C. Normal mammogram. Dysuria (~10/2018) Limited range of motion of shoulder R sided. 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 + HR HPV beginning 2004. 2013 Pap Nl/HPV Neg 2015 Pap Nl/HPV + 2016 Pap Nl/HPV + ( Neg HPV 16 & 18) 2017 Pap Nl/HPV Neg 2020. Pap Nl/HPV Neg. Recommended stop screening paps. Surgical History History of cholecystectomy Hx laparoscopic cholecystectomy (~12/30/19) H/O: pt. denies, pt. states one child was born vaginally S/P cataract surgery S/P tubal ligation Social History Smoking/Tobacco Use Status: Former Tobacco Use Quit Date: 09/21/06 Tobacco: How many years used: 30 Smoking risk assessment performed?: Yes Alcohol Intake: current Alcohol Intake frequency: holidays/special occasions only Alcohol type: wine and hard liquor Drug use: Never Substance use type: does not use Details: alcohol: t-7 Household members: none and other Details: Lives alone at [address]. D x20 years Housing: long-term Number of Children: 5 number of grandchildren: 3 current occupation: Retired with 50 years [employer] Pets and animals: Yes (Jose Currie) Pets and animals: dog(s) Sexually active: No Current gender identity: female Do you feel safe at home: Yes Do you feel safe in your relationship?: Yes Additional Social history: Son-Arron. 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 SERINA Durant 24, Naeem 20, Pavithra 21. Female Reproductive History Menstrual Menopause type: natural History History 6 Para Hx # Term Pregnancies 5 Multiple births Hx # Pregnancies Ectopic pregnancies AB induced Hx Number of Living Children AB spontaneous
[2023-02-17] MEDS: Furosemide 40 MG/4 ML VIAL IVP (09:45)
[2023-02-17] MEDS: MORPHine 2 MG/ML SYR 0.5 MG IVP (09:48)
[2023-02-17] MEDS: dilTIAZem 25 MG/5 ML VIAL 5 MG IVP (09:51)
[2023-02-17] MEDS: Simvastatin 20 MG TAB PO (10:10)
[2023-02-17 10:40] LABS: Lab Add On Test DONE
--- NOTE | 2023-02-17 10:50 | PT.INNT ---
PT Notes Visit Reasons: Pneumonia Left Lower Lobe,Lactic Acidosis,Diastoli Communicated with nursing prior to attempt of evaluation. They are currently working on eliminating some fluid for Rehan, and starting new IV. Recommend eval hold until tomorrow, or more medically stable.
[2023-02-17 10:54] LABS: Creatine Kinase 51 U/L (26-192)
[2023-02-17 11:05] LABS: Bilirubin Negative (Negative); Blood Moderate (Negative); Clarity Sl Cloudy (Clear); Glucose Negative (Negative); Ketones Negative (Negative); Leukocyte Esterase Trace (Negative); Nitrite Negative (Negative); Specific Gravity 1.015 (1.005-1.025)
[2023-02-17 11:14] LABS: Epithelial Cells Rare HPF (Negative)
[2023-02-17 11:15] LABS: Bacteria Rare HPF (Negative); C & S Indicated? Yes; Casts Negative LPF (Negative); Crystals Negative HPF (Negative); Mucus Trace (Negative)
[2023-02-17 11:31] LABS: Lactate 3.5 mmol/L (0.6-1.4)
[2023-02-17] MEDS: dilTIAZem 125 MG in Normal Saline 100 ML IV (11:47)
[2023-02-17] MEDS: Tiotropium Bromide-Respimat 10 PUFF INH IH (11:56)
[2023-02-17] MEDS: Triamcinolone 0.1% CR 15 GM TUBE TP ×2 (11:58→19:47)
--- NOTE | 2023-02-17 14:10 | NUR.NOTE ---
After being out of bed since 08:30 this morning, patient returns to bed to rest. Vital signs are within normal limits and patient is sating 94% on room air.Nursing Note:
[2023-02-17 14:14] LABS: MRSA PCR Negative (Negative)
[2023-02-17 19:19] LABS: Troponin I 78 ng/L (<or=60)
[2023-02-17] MEDS: Acetaminophen 325 MG TAB PO (19:45)
[2023-02-18] VITALS (49 sets, daily range): BP systolic 125–150; BP diastolic 67–83; PULSE 54–99; RESP 15–27; TEMP 36.1–37; O2SAT 89–96
[2023-02-18] MEDS: Hydrocortisone SOD SUC. 100 MG VIAL IVP ×2 (00:14→05:06)
[2023-02-18] MEDS: Normal Saline Flush 10 ML SYR IVP ×3 (00:15→23:04)
[2023-02-18] MEDS: VANCOMYCIN/WATER (PEG) 750 MG/150 ML BAG 150 MG IVPB (00:19)
[2023-02-18] MEDS: CEFEPIME 1 GM in Normal Saline 50 ML IVPB ×3 (02:08→23:05)
[2023-02-18] MEDS: LORazepam 0.5 MG TAB PO ×2 (05:14→18:59)
[2023-02-18 06:03] LABS: Absolute Basophil Count 0.03 10^3/uL (0.0-0.2); Absolute Lymphocyte Count 0.39 10^3/uL (1.2-3.4); Absolute Monocyte Count 0.54 10^3/uL (0.1-0.8); Basophils % 0.2; HCT 36.7 % (36.0-46.0); HGB 11.6 g/dL (11.2-15.7); Immature Grans % 0.7; Lymphocytes % 2.8; MCH 31.4 pg (27.0-33.0); MCHC 31.6 % (32.0-36.0); MCV 99 fL (80-95); MPV 10.5 fL (8.0-11.0); Monocytes % 3.9; Neutrophils % 92.4; Platelet Count 109 10^3/uL (130-400); RDW 15.4 % (11.7-14.6); RDW-SD 54.7 fL; WBC 13.79 10^3/uL (4.4-10.8)
[2023-02-18 06:04] LABS: Lactate 2.2 mmol/L (0.6-1.4)
[2023-02-18 06:07] LABS: Absolute Neutrophil Count 12.74 10^3/uL (1.2-6.7)
[2023-02-18] MEDS: Albuterol 2.5 MG/3 ML INH SOLN VIAL UPD (06:08)
[2023-02-18 06:26] LABS: Vancomycin, Random 29.9 ug/mL
[2023-02-18 06:27] LABS: ALT 56 U/L (14-59); AST 40 U/L (15-37); Albumin 3.3 g/dL (3.4-5.0); Alkaline Phosphatase 69 U/L (46-116); Bilirubin, Direct 0.7 mg/dL (0.0-0.2); Bilirubin, Total 1.7 mg/dL (0.2-1.0)
[2023-02-18 06:56] LABS: Procalcitonin < 0.1 ng/mL
[2023-02-18] MEDS: hydrOXYzine HCL 10 MG TAB PO ×2 (06:57→18:59)
[2023-02-18] MEDS: Spironolactone 25 MG TAB PO (07:45)
[2023-02-18] MEDS: Simvastatin 20 MG TAB PO (07:45)
[2023-02-18] MEDS: Potassium Chloride 10 MEQ CAPCR PO (07:45)
[2023-02-18] MEDS: Metoprolol 12.5 MG TAB 25 MG PO ×2 (07:45→19:01)
[2023-02-18] MEDS: guaiFENesin 600 MG TABCR PO ×2 (07:45→18:59)
[2023-02-18] MEDS: Apixaban 2.5 MG TAB PO ×2 (07:45→18:59)
[2023-02-18] MEDS: Tiotropium Bromide-Respimat 10 PUFF INH IH (07:53)
[2023-02-18 08:07] LABS: BUN 41 mg/dL (7-18); CREATININE 2.1 mg/dL (0.55-1.02); Calcium 9.2 mg/dL (8.5-10.1); Chloride 98 mmol/L (98-107); Estimated GFR 23.38 (mL/min/1.73m2); Glucose 139 mg/dL (74-106); Magnesium 2.2 mg/dL (1.8-2.4); Potassium 3.5 mmol/L (3.5-5.1); Sodium 138 mmol/L (136-145)
--- NOTE | 2023-02-18 10:31 | IN_ITS ---
Date of service: 02/18/23 Time of Service: 10:10 PT Notes Visit Reasons: Pneumonia Left Lower Lobe,Lactic Acidosis,Diastoli Date: 02/18/23 Referring Doctor: Ever Gray MD PT Orders: PT CONSULT: Exacerbation of chronic condition non-urgent Precautions: Standard Patient Profile/Admitting Diagnosis: 82 y o female admitted with lactic acidosis is likely d/t ischemia from pneumonia, acute exacerbation of CHF, rapid atrial fibrillation with medical history of chronic CKD, HTN, A-fib, Grade 3 dialstolic HF, and interstitial lung disease. She has been a resident of [facility] for a short time, details of length of stay unknown. Currently with confusion. Social History/Home Situation: Comes from [facility], unsure of length of stay. Patient reports she lives in [place] in a one floor home, with 3 step to en [facility] with 2 rails, states she lives along. Does not mention her current residence of [facility]. Equipment Owned/DME: Uncertain, patient unable to report. She states she does not usually use a device, but clearly mentally confused. Subjective: Has no pain, back is very itchy. Happy to ambulate. Objective: General Observation: Sitting in upright chair, he and telemetry in place. Mental Status: Confusion, thinks she still lives at home. Alert to person. Struggles with following directions. ROM: Right Upper Extremity: WNL Left Upper Extremity: WNL Right Lower Extremity: WNL Left Lower Extremity:WNL Strength: Right Upper Extremity: Grossly 4/5, of shoulder abd 3-/5 Left Upper Extremity: Grossly 4/5 Right Lower Extremity: Grossly 4/5 Left Lower Extremity: Grossly 4/5 Bed Mobility/Transfers: Sit to stand: CG to RW Stand to sit: supervision Bed mobility: Independent Supine to sit: Independent Gait: 150 ft with RW, close supervision. Short stride length Balance: Static Sitting: Good Dynamic Sitting: Good Static Standing: Fair with RW Dynamic Standing: Fair with RW Stage 4 Balance Test Time (seconds) Feet together 10 Partial tandem Unable Tandem Unable One foot Unable Special Tests: Mobility Limitations Standardized Measure [facility] AM-PAC 6 clicks Basic Mobility Inpatient Short Form: 42% disability Informed Consent/Education: Patient instructed in purpose of PT consult and plan of care. Treatment: Initial evaluation [id number] Assessment: Patient is an 82 year old female referred to physical therapy services with reason for PT evaluation of limited ability due to exacerbation of chronic condition,and admitted diagnosis of lactic acidosis due to pneumonia with altered mental status. Patient continues to demonstrate a lot of confusion, where independent living would be a safety risk. Patient presents with with strength, balance, and gait impairments related to acute medical issues required need for PT service to improve safety with functional mobility and attend to below deficits. Impairment level findings: Poor dynamic balance UE and LE weakness Impairments are contributing to the following functional limitations: Supervision required with dynamic movements due to instability and unsteadiness. Patient is assessed as moderate complexity based on the following: History: 82 y o female admitted with lactic acidosis is likely d/t ischemia from pneumonia, acute exacerbation of CHF, rapid atrial fibrillation with medical history of chronic CKD, HTN, A-fib, Grade 3 dialstolic HF, and interstitial lung disease. She has been a resident of [facility] for a short time, details of length of stay unknown. Currently with confusion. Examination: impairment and functional limitations as noted above Presentation: evolving Decision Making: easy Goals: Goals X1 week 1. Sit-Stand : distant supervision with RW 2. Stand-Sit : distant supervision with RW 3. Bed-Chair : distant supervision with RW 4. Chair-Bed : distant supervision with RW 5. Gait : 200 ft, steady with change of direction, RW, distant supervision 6. Stairs : Good balance with partial tandem, and change of direction movements with RW Plan of Care/Treatment Plan: 1-2x/day, 7 days/week x 1 week. Plan of care has been reviewed with the [employer] OPERATOR providing the service under Physical Therapy direction. Initiate Physical Therapy intervention for strengthening, bed mobility, transfers, gait, stairs, balance training, use of assistive device. DISCHARGE RECOMMENDATIONS: Return to SNF, only transfer home with 24 hour family and friend supervision, primarily due to confusion. TREATMENT CODE/TIME: Direct treatment time 4073-7439 20min Total treatment time 20min Units Time 25804 1 Manual therapy (11464) [] []min Therapeutic Procedures (68781) [] []min Neurological Reeducation (88420) [] []min Therapeutic Activity (47802) [] []min [] [] []min [] [] []min Arabella Watson, MPT [place] [facility]
--- NOTE | 2023-02-18 13:31 | W.PM.PROGNOT ---
Date of Service Date of service: 02/18/23 Time of Service: 13:31 Assessment and Plan Assessment and plan (1) Diastolic heart failure: Status: Chronic Assessment and plan: Per her echo, her hemodynamics were consistent w/ grade III diastolic HF. She is not requiring oxygen supplementation she has no peripheral edema. This point we can discontinue continuous IV Lasix and switch her over to program dose of oral Lasix and spironolactone. Continue to monitor renal function. At this point we will discontinue her Figueroa catheter and transfer out to the medical/surgical floor where she will complete her therapy. Qualifiers: Heart failure chronicity: chronic Qualified Code(s): I50.32 - Chronic diastolic (congestive) heart failure (2) Atrial fibrillation, chronic: Status: Chronic Assessment and plan: Rate is markedly improved and she has not required a diltiazem drip. We will continue her current regimen of using oral beta-blockers and calcium channel lockers. In light of her chronic renal insufficiency she should remain off of digoxin especially since she has had a prior episode of digoxin toxicity She is currently on metoprolol tartrate 25 mg p.o. twice daily (3) Elevated troponin I level: Status: Acute Assessment and plan: This is likely type II demand ischemia brought on by her A-fib and her hypoxemia. (4) Pneumonia: Start date: 02/16/23 Status: Acute Assessment and plan: Chest x-ray on admission suggested an incipient left lower lobe infiltrate. She did have a fever on admission and has been afebrile since she has been on antibiotics. Blood culture showing no growth. Urine culture also shows no significant growth. She has been unable to produce a sputum. Her MRSA screen was negative. We will discontinue use of vancomycin but continue cefepime for now and add doxycycline. We will treat empirically for 5 days of antibiotics and monitor procalcitonin levels and CBC. Qualifiers: Pneumonia type: due to unspecified organism Laterality: left Lung location: lower lobe of lung Qualified Code(s): J18.9 - Pneumonia, unspecified organism (5) Lactic acidosis: Start date: 02/16/23 Status: Acute Assessment and plan: Lactic acidosis seems to be improving I think it was related to her tachycardia from her A-fib along with her hypoxemia from her pneumonia and CHF. (6) ILD (interstitial lung disease): Status: Chronic Assessment and plan: Continue outpatient medical therapy and oxygen supplementation. She is steroid-dependent with daily prednisone dosing and will be given stress dosing steroids especially in this picture of early sepsis upon presentation. Begin to taper her stress dose steroids. (7) CKD (chronic kidney disease): Status: Chronic Assessment and plan: Patient has had an increase in a BUN of 41 creatinine 2.1. She may have been over diuresed with the Lasix drip. Nevertheless she is clinically better. We will continue to monitor BUN and creatinine while we transition over to oral Lasix. Qualifiers: Chronic kidney disease stage: stage 3 (moderate) Chronic kidney disease stage 3 subtype: stage 3b (GFR 30-44) Qualified Code(s): N18.32 - Chronic kidney disease, stage 3b (8) HTN (hypertension): Status: Chronic Assessment and plan: Treatment with Lopressor. Once she is euvolemic we can consider trial of Jardiance. Creatinine stabilizes we may consider trial of an DES inhibitor or ARB. Qualifiers: Hypertension type: primary hypertension Qualified Code(s): I10 - Essential (primary) hypertension (9) DVT prophylaxis: Status: Acute Assessment and plan: Patient currently apixaban chronically for A-fib. Subjective Subjective Interval history since last seen: She denies any shortness of breath or chest pain. She has minimal cough productive of whitish mucus. She is afebrile. She remains on cefepime and vancomycin empirically for healthcare acquired pneumonia. However her MRSA screen was negative therefore I will discontinue her vancomycin. She was never started on doxycycline I will add oral doxycycline to her regimen. Urine culture showing less than 10,000 colonies of gram-positive marizol. Figueroa catheter showed some pink-tinged prior from Figueroa trauma. I discontinued her Lasix drip and will switch her over to oral Lasix. We will continue spironolactone. I think her primary problem with her acute respiratory failure was due to congestive heart failure from diastolic heart failure as well as pulmonary hypertension. While we cannot exclude concomitant pneumonia it is interesting that her white count was only minimally elevated and her procalcitonin never did rise above normal. Nevertheless she did have a low-grade fever on admission which has resolved since starting antibiotics. She is hemodynamically stable and her A-fib rate is well controlled she has not required a diltiazem drip. This point I think she can be transferred to the medical/surgical floor. Exam Narrative Exam Narrative: Rehan is sitting up in her chair she is alert she is oriented to person place and circumstance. She denies any dyspnea she is able to talk in complete paragraphs not using accessory respiratory muscles Lungs with bibasilar fine rales cannot distinguish whether this is her pulmonary fibrosis or due to pulmonary edema. She does have some diminished breath sounds on the right lung base. Heart irregularly irregular but controlled rate Abdomen soft and nontender Lower extremities no edema she does have some dependent cyanosis to her feet and has venous varicosities. She also has some notable tinea involvement of her feet. Objective Last Vital Signs Temp 37.0 C 02/18/23 09:45 Pulse 88 02/18/23 09:45 Resp 16 02/18/23 09:45 BP 144/83 H 02/18/23 09:45 Pulse Ox 95 02/18/23 09:45 Laboratory Results - last 24 hr 02/17/23 02/17/23 02/18/23 11:20 18:51 05:35 WBC 13.79 H RBC 3.70 L Hgb 11.6 Hct 36.7 MCV 99 H MCH 31.4 MCHC 31.6 L RDW 15.4 H Plt Count 109 L MPV 10.5 Immature Gran % 0.7 Neutrophils % 92.4 Lymphocytes % 2.8 Monocytes % 3.9 Eosinophils % 0.0 Basophils % 0.2 Nucleated RBC % 0.0 Absolute Neutrophils 12.74 H Absolute Lymphocytes 0.39 L Absolute Monocytes 0.54 Absolute Eosinophils 0.00 Absolute Basophils 0.03 VBG Lactate 3.0 H* 2.2 H* Sodium 138 Potassium 3.5 Chloride 98 Carbon Dioxide 32.0 Anion Gap 8.0 BUN 41 H Creatinine 2.1 H Est GFR (CKD-EPI 2020) 23.38 Glucose 139 H Calcium 9.2 Magnesium 2.2 Total Bilirubin 1.7 H Conjugated Bilirubin 0.7 H AST 40 H ALT 56 Alkaline Phosphatase 69 Troponin I 78 H* Total Protein 6.0 L Albumin 3.3 L Procalcitonin < 0.1 Random Vancomycin 29.9 MRSA (TEM-PCR) Negative Time Spent with Patient Time Spent with Patient: 35-49 minutes Time was spent: preparing to see the patient(eg.review tests), ordering medications,tests, procedures, referring, communicating with other health respite care provider, indepentently interpreting results, counseling the patient and care coordination
[2023-02-18] MEDS: Hydrocortisone SOD SUC. 100 MG VIAL 50 MG IVP ×2 (14:57→23:04)
[2023-02-18] MEDS: Acetaminophen 325 MG TAB PO (18:59)
[2023-02-18] MEDS: Furosemide 40 MG TAB PO (19:01)
[2023-02-18] MEDS: Doxycycline Hyclate 100 MG CAP PO (19:02)
[2023-02-18] MEDS: Triamcinolone 0.1% CR 15 GM TUBE TP (23:08)
[2023-02-18] MEDS: Miconazole 2% Topical Powder 85 GM BTL TP (23:12)
[2023-02-19] VITALS (20 sets, daily range): BP systolic 131–155; BP diastolic 66–85; PULSE 0–88; RESP 15–29; TEMP 36.5–37.1; O2SAT 87–100
--- NOTE | 2023-02-19 | DI.CT_ITS ---
Exam(s) CT HEAD - STROKE PROTOCOL EXAM: CT HEAD - STROKE PROTOCOL CLINICAL HISTORY: acute delirium. TECHNIQUE: Imaging Protocol: Axial computed tomography images with coronal and sagittal reformatted images were created and reviewed COMPARISON: No exams were available for comparison FINDINGS: Unremarkable appearing left frontal bone osteotomy. There is no fluid in the visualized paranasal si nuses. Surgical clips noted in the anterior interhemispheric fissure-territory of anterior cerebral artery. There is encephalomalacia and ex vacuo dilatation in the frontal horn left lateral ventricle. Some dystrophic calcification is noted in the right frontal lobe. There is no evidence of intracranial hemorrhage, mass effect, or shift of midline structures. Ventri cular size is age-appropriate as are the size of the overlying cortical sulci. No evidence of obviou s acute infarct. IMPRESSION: Postsurgical findings as above but no obvious acute intracranial findings on this non few CT scan. I f clinically indicated follow-up MRI can be performed. First read by [facility] RADIATION DOSE DELIVERED: Total DLP DATA REPOSITORY: All CT scans at this facility are submitted to the National Radiology Data Registry (NRDR) Dose Index Registry (DIR) with the [employer] ([employer]). RADIATION OPTIMIZATION: All CT scans at this facility use at least one of these dose optimization te chniques: automated exposure control; mA and/or kV adjustment per patient size (includes targeted exa ms where dose is matched to clinical indication); or iterative reconstruction.
[2023-02-19] MEDS: Normal Saline Flush 10 ML SYR IVP ×4 (03:58→18:24)
[2023-02-19] MEDS: CEFEPIME 1 GM in Normal Saline 50 ML IVPB ×2 (05:10→18:28)
[2023-02-19] MEDS: hydrOXYzine HCL 10 MG TAB PO ×2 (05:11→16:00)
[2023-02-19] MEDS: Acetaminophen 325 MG TAB PO (05:11)
[2023-02-19 07:40] LABS: Abs Immature Grans 0.15 10^3/uL (0.0-0.06); Absolute Lymphocyte Count 0.52 10^3/uL (1.2-3.4); Basophils % 0.1; Eosinophils % 0.4; HCT 38.1 % (36.0-46.0); HGB 12.3 g/dL (11.2-15.7); Immature Grans % 1.1; Lymphocytes % 3.7; MCH 31.5 pg (27.0-33.0); MCHC 32.3 % (32.0-36.0); MCV 98 fL (80-95); MPV 10.7 fL (8.0-11.0); Neutrophils % 89.7; RDW 15.6 % (11.7-14.6); RDW-SD 55.3 fL; WBC 13.94 10^3/uL (4.4-10.8)
[2023-02-19 07:44] LABS: Absolute Basophil Count 0.01 10^3/uL (0.0-0.2); Absolute Eosinophil Count 0.06 10^3/uL (0.0-0.7)
[2023-02-19 07:50] LABS: ALT 60 U/L (14-59); AST 53 U/L (15-37); Albumin 3.2 g/dL (3.4-5.0); Alkaline Phosphatase 66 U/L (46-116); Anion Gap 10.7 mmol/L (3-11); BUN 57 mg/dL (7-18); Bilirubin, Direct 0.6 mg/dL (0.0-0.2); Bilirubin, Total 1.5 mg/dL (0.2-1.0); CO2 33.3 mmol/L (21.0-32.0); CREATININE 1.9 mg/dL (0.55-1.02); Calcium 9.6 mg/dL (8.5-10.1); Chloride 100 mmol/L (98-107); Estimated GFR 26.36 (mL/min/1.73m2); Glucose 143 mg/dL (74-106); Magnesium 2.4 mg/dL (1.8-2.4); Potassium 3.2 mmol/L (3.5-5.1); Sodium 144 mmol/L (136-145); Total Protein 6.5 g/dL (6.4-8.2)
[2023-02-19 08:03] LABS: Diff Comment Diff Reviewed; Platelet Count 90 10^3/uL (130-400); RBC Morphology Normal
[2023-02-19] MEDS: Doxycycline Hyclate 100 MG CAP PO ×2 (09:02→20:28)
--- NOTE | 2023-02-19 09:02 | W.PM.PROGNOT ---
Date of Service Date of service: 02/19/23 Time of Service: 09:02 Assessment and Plan Assessment and plan (1) Delirium: Status: Acute Assessment and plan: We will give the patient Zyprexa 5 mg IM this morning and then tonight started on Geodon. I cannot see where she has been on any medications that could have led to this delirium. There are multiple factors contributing to her delirium including her severely restricted eyesight causing visual sensory deprivation along with being admitted to the intensive care unit with recent infection and heart failure. She is not showing focal neurologic deficits to suggest stroke. Consider CT scan of her head once she has been medicated with Zyprexa. Professional time spent interviewing and examining patient, discussion of goals of care with hospital team (care management, nursing and consulting professionals) was 45 minutes. (2) Pneumonia: Start date: 02/16/23 Status: Acute Assessment and plan: Chest x-ray on admission suggested an incipient left lower lobe infiltrate. She did have a fever on admission and has been afebrile since she has been on antibiotics. Blood culture showing no growth. Urine culture also shows no significant growth. She has been unable to produce a sputum. Her MRSA screen was negative. We will discontinue use of vancomycin but continue cefepime for now and add doxycycline. We will treat empirically for 5 days of antibiotics and monitor procalcitonin levels and CBC. Today is day 4 of cefepime and day 2 of doxycycline Qualifiers: Pneumonia type: due to unspecified organism Laterality: left Lung location: lower lobe of lung Qualified Code(s): J18.9 - Pneumonia, unspecified organism (3) Diastolic heart failure: Status: Chronic Assessment and plan: Per her echo, her hemodynamics were consistent w/ grade III diastolic HF. She is not requiring oxygen supplementation she has no peripheral edema. Formal echocardiogram reading demonstrated normal left ventricular systolic function with an LVEF of 55%. She has pulmonary hypertension with RVSP of 61 mm with evidence of pressure overload withl interventricular septal flattening She also has moderate to severely dilated atria bilaterally and moderate mitral and tricuspid regurgitation. Qualifiers: Heart failure chronicity: chronic Qualified Code(s): I50.32 - Chronic diastolic (congestive) heart failure (4) Atrial fibrillation, chronic: Status: Chronic Assessment and plan: Rate is markedly improved and she has not required a diltiazem drip. We will continue her current regimen of using oral beta-blockers and calcium channel lockers. In light of her chronic renal insufficiency she should remain off of digoxin especially since she has had a prior episode of digoxin toxicity She is currently on metoprolol tartrate 25 mg p.o. twice daily (5) Elevated troponin I level: Status: Acute Assessment and plan: This is likely type II demand ischemia brought on by her A-fib and her hypoxemia. (6) Lactic acidosis: Start date: 02/16/23 Status: Acute Assessment and plan: Lactic acidosis seems to be improving I think it was related to her tachycardia from her A-fib along with her hypoxemia from her pneumonia and CHF. (7) ILD (interstitial lung disease): Status: Chronic Assessment and plan: Continue outpatient medical therapy and oxygen supplementation. She is steroid-dependent with daily prednisone dosing and will be given stress dosing steroids especially in this picture of early sepsis upon presentation. Begin to taper her stress dose steroids. (8) CKD (chronic kidney disease): Status: Chronic Assessment and plan: Patient has had an increase in a BUN of 41 creatinine 2.1. She may have been over diuresed with the Lasix drip. Nevertheless she is clinically better. We will continue to monitor BUN and creatinine while we transition over to oral Lasix. Qualifiers: Chronic kidney disease stage: stage 3 (moderate) Chronic kidney disease stage 3 subtype: stage 3b (GFR 30-44) Qualified Code(s): N18.32 - Chronic kidney disease, stage 3b (9) HTN (hypertension): Status: Chronic Assessment and plan: Treatment with Lopressor. Once she is euvolemic we can consider trial of Jardiance. Creatinine stabilizes we may consider trial of an DES inhibitor or ARB. Qualifiers: Hypertension type: primary hypertension Qualified Code(s): I10 - Essential (primary) hypertension (10) DVT prophylaxis: Status: Acute Assessment and plan: Patient currently apixaban chronically for A-fib. Subjective Subjective Interval history since last seen: She is much more confused today she is not following commands. She is not even recognizing her ex [id number] who is here visiting with her. Patient has severe visual impairment from macular degeneration. This is impairing her senses but she is also delirious today. She does not appear to be in any pain or any dyspnea. Currently on room air. Exam Narrative Exam Narrative: Rehan is alert but she is not oriented to person place time or circumstance. She is not even recognizing family members. Lungs are clear anteriorly posteriorly she has some fine cellophane type rales consistent with her history of pulmonary fibrosis Heart is irregularly irregular at a controlled rate Abdomen soft nontender nondistended Extremities without peripheral edema Objective Last Vital Signs Temp 36.5 C 02/19/23 03:59 Pulse 72 02/19/23 03:59 Resp 18 02/19/23 03:59 BP 152/85 H 02/19/23 03:59 Pulse Ox 95 02/19/23 03:59 Laboratory Results - last 24 hr 02/19/23 02/19/23 02/19/23 07:00 07:00 07:00 WBC 13.94 H RBC 3.90 L Hgb 12.3 Hct 38.1 MCV 98 H MCH 31.5 MCHC 32.3 RDW 15.6 H Plt Count 90 L MPV 10.7 Immature Gran % 1.1 Neutrophils % 89.7 Lymphocytes % 3.7 Monocytes % 5.0 Eosinophils % 0.4 Basophils % 0.1 Nucleated RBC % 0.0 Absolute Neutrophils 12.50 H Absolute Lymphocytes 0.52 L Absolute Monocytes 0.70 Absolute Eosinophils 0.06 Absolute Basophils 0.01 RBC Morphology Normal Sodium 144 Potassium 3.2 L Chloride 100 Carbon Dioxide 33.3 H Anion Gap 10.7 BUN 57 H Creatinine 1.9 H Est GFR (CKD-EPI 2020) 26.36 Glucose 143 H Calcium 9.6 Magnesium 2.4 Total Bilirubin Cancelled 1.5 H Conjugated Bilirubin Cancelled 0.6 H AST Cancelled ALT Alkaline Phosphatase Total Protein Albumin 02/19/23 02/19/23 02/19/23 07:00 07:00 07:00 WBC RBC Hgb Hct MCV MCH MCHC RDW Plt Count MPV Immature Gran % Neutrophils % Lymphocytes % Monocytes % Eosinophils % Basophils % Nucleated RBC % Absolute Neutrophils Absolute Lymphocytes Absolute Monocytes Absolute Eosinophils Absolute Basophils RBC Morphology Sodium Potassium Chloride Carbon Dioxide Anion Gap BUN Creatinine Est GFR (CKD-EPI 2020) Glucose Calcium Magnesium Total Bilirubin Conjugated Bilirubin AST 53 H ALT Cancelled 60 H Alkaline Phosphatase Cancelled 66 Total Protein Cancelled Albumin 02/19/23 02/19/23 07:00 07:00 WBC RBC Hgb Hct MCV MCH MCHC RDW Plt Count MPV Immature Gran % Neutrophils % Lymphocytes % Monocytes % Eosinophils % Basophils % Nucleated RBC % Absolute Neutrophils Absolute Lymphocytes Absolute Monocytes Absolute Eosinophils Absolute Basophils RBC Morphology Sodium Potassium Chloride Carbon Dioxide Anion Gap BUN Creatinine Est GFR (CKD-EPI 2020) Glucose Calcium Magnesium Total Bilirubin Conjugated Bilirubin AST ALT Alkaline Phosphatase Total Protein 6.5 Albumin Cancelled 3.2 L Time Spent with Patient Time Spent with Patient: 35-49 minutes Time was spent: preparing to see the patient(eg.review tests), ordering medications,tests, procedures, referring, communicating with other health complex care nurse practitioner, indepentently interpreting results, counseling the patient (Counseling her ex [id number], Jessica) and care coordination
[2023-02-19] MEDS: Simvastatin 20 MG TAB PO (09:03)
[2023-02-19] MEDS: Spironolactone 25 MG TAB PO (09:03)
[2023-02-19] MEDS: Metoprolol 12.5 MG TAB 25 MG PO (09:03)
[2023-02-19] MEDS: Furosemide 40 MG TAB PO ×2 (09:03→16:02)
[2023-02-19] MEDS: guaiFENesin 600 MG TABCR PO ×2 (09:03→20:28)
[2023-02-19] MEDS: Apixaban 2.5 MG TAB PO ×2 (09:03→20:28)
[2023-02-19] MEDS: Hydrocortisone SOD SUC. 100 MG VIAL 50 MG IVP (09:04)
[2023-02-19] MEDS: Triamcinolone 0.1% CR 15 GM TUBE TP ×2 (09:05→20:28)
[2023-02-19] MEDS: Miconazole 2% Topical Powder 85 GM BTL TP ×2 (09:05→20:29)
--- NOTE | 2023-02-19 11:26 | PHA.REVIEW2 ---
Pharmacy Admission Review Admission Clinical Review Admission Pharmacy Review: (Updated 02/18/23 @ 13:57 by Ever Gray MD) Elevated troponin I level (Acute) DVT prophylaxis (Acute) Lactic acidosis (Acute) Pneumonia (Acute) pseudoephedrine HCl [From Sudafed] Allergy (Intermediate, Verified 02/16/23 12:22) Swelling/Edema Sulfa (Sulfonamide Antibiotics) Allergy (Verified 02/16/23 12:22) itch/rash erythromycin base Adverse Reaction (Intermediate, Verified 02/16/23 12:22) GI upset codeine Adverse Reaction (Verified 02/16/23 12:22) hyper Resuscitation Status DNR/DNI Height 5 ft 4.96 in Weight 60.4 kg Pharmacy Admission Review Renal Dosing Renal Dosing: BUN 57 mg/dL (7-18) H 02/19/23 07:00 Creatinine 1.9 mg/dL (0.55-1.02) H 02/19/23 07:00 Medications needing adjustments: Intervened (CrCl 19.55, cefepime dosing was adjusted to 1 gram every 12 hours (was every 8 hours)) List of meds needing interventions: Cefepime Anticoagulation Anticoagulation: Hgb 12.3 g/dL (11.2-15.7) 02/19/23 07:00 Hct 38.1 % (36.0-46.0) 02/19/23 07:00 Plt Count 90 10^3/uL (130-400) L 02/19/23 07:00 Creatinine 1.9 mg/dL (0.55-1.02) H 02/19/23 07:00 Therapeutic Anticoagulation: Reviewed Medications: Apixaban (2.5mg BID for A. fib ) Opiate Usage Evaluate Pain Scale/Pains Meds: N/A Relevant Labs Relevant Labs: Sodium 144 mmol/L (136-145) 02/19/23 07:00 Potassium 3.2 mmol/L (3.5-5.1) L 02/19/23 07:00 Chloride 100 mmol/L (98-107) 02/19/23 07:00 Magnesium 2.4 mg/dL (1.8-2.4) 02/19/23 07:00 C-Reactive Protein 1.31 mg/dL (0.0-0.3) H 02/17/23 05:44 Electrolytes, C-Reactive P, ESR: Reviewed (Low K being replaced (20 mEq IVPB Q2H), CRP has not been repeated, WBC 13.94) DM Control DM Control: N/A (Does not have documented diabetes) Cardiac Review Cardiac Review: Troponin I 78 ng/L (<or=60) H* 02/17/23 18:51 NT-Pro-B Natriuret Pep 9699 pg/mL (<300) H 02/16/23 11:56 BP, HR, EF%: Reviewed (BP 155/81, HR 86) QTc Review QTc: Reviewed (479 on 02/17/23) IV to PO Switch IV Medications: Reviewed Home Meds Home Med List reviewed: Reviewed Relevent Home Meds Not ordered & why?: Was taking digoxin at home but per MD progress note was discontinued due to history of toxicity. Current Meds Current Medication Order Review: Reviewed Comments: Cefepime adjusted for renal dosing Pharmacy Antibiotic Review Pharmacy Antibiotic Activity: C/S review and Renal function adjustment Comments: Cultures showing no growth, WBC increased at 13.94
--- NOTE | 2023-02-19 11:30 | PT.INTREAT ---
Date of service: 02/19/23 Time of Service: 11:15 PT Notes Visit Reasons: Pneumonia Left Lower Lobe,Lactic Acidosis,Diastoli Inpatient Physical Therapy Treatment Note [facility] Date: 02/19/23 PRECAUTIONS: Fall, standard, activity as tolerated. SUBJECTIVE: Patient supine in bed, daughter in law in attendance. Patient appears very confused, repeatedly asking where she is, where DIL is, yelling ouch but unable to describe location or intensity of pain, yelling Help me but unable to describe what she needs help with. AFTERNOON: Patient on hold per RNDR OBJECTIVE: Supine in bed. Fidgety and agitated.?Agreeable to go for a walk but unable to follow one step instructions.? PAIN: reportedly, however unspecified. VITALS: closely monitored by nursing staff via telemetry. Therapeutic Activities ([id number]): Direct one-on-one instruction in dynamic activities to improve functional performance. ? BED MOBILITY/TRANSFERS? Rolling L/R: not assessed Supine-sit: min assist of two - one to maneuver legs out of bed, one to support behind patient's trunk.? Sit-supine: min assist of one, repeated tactile cues which patient is able to follow back into bed.? Sit-stand: min assist of two at gait belt. Once standing, patient is completely unable to maintain hands on walker, furiously attempts to disrobe / get out of her brief.? Stand-sit: CGA, verbal and tactile cues. ? Bed-Chair: unable ? Chair-bed: unable Provided skilled cues and instruction on performance and technique throughout. Gait Training ([id number][]): Direct one-on-one instruction and skilled instruction in: [] employing an assistive device [] modified weight-bearing status [] movement sequencing [] turning and movement with proper form [] Provided verbal cues for equipment management and technique [] Provided instruction in gait pattern [] Patient education regarding pacing and breathing techniques to maximize activity tolerance? GAIT? Assistive Device: []? Weight bearing: [] Assist: [] ? Distance:? [] ? Deviation: [] ? STAIRS:[] ? Therapeutic Exercises ([id number][]): Direct one-on-one instruction in therapeutic exercises to develop strength, endurance, range of motion and flexibility. ? Exercises ? [] Ambulation ? Assistive Device: []? Weight bearing: [] Assist: [] ? Distance:? [] ? Deviation: [] ? Provided skilled instruction in proper exercise performance Provided skilled manual cues to facilitate proper muscle recruitment and/or form: [] Neuromuscular Re-education ([id number][]): Activities that facilitate re-education of movement balance, posture, coordination, and proprioception or kinesthetic sense, requiring skilled tactile and verbal cues ? Exercises/techniques: ? [] ASSESSMENT:? Patient is extremely confused, obsessively attempting to disrobe. Dr Gray arrives at end of treatment session, puts patient on hold for therapy until patient's cognition clears, hopefully this afternoon. PLAN: Resume therapy services when indicated by improvement in cognitive status, hopefully this afternoon. AFTERNOON: Patient on hold until tomorrow per RNDR due to cognitive status. TREATMENT CODE/TIME: 13 minutes beginning at 10:31
[2023-02-19] MEDS: OLANZapine 10 MG VIAL 5 MG IM (12:15)
[2023-02-19] MEDS: LORazepam 2 MG/ML VIAL 1 MG IVP (12:15)
--- NOTE | 2023-02-19 12:16 | PDOC.CMPRO ---
Date of service: 02/19/23 Time of Service: 12:16 Care Management Progress Note Progress Note Text Progress Note Text: S/O: Rehan remains inpatient, CM supported SHALA Lopez with DPOA paperwork, notary to support as well. No change to overall plan! CM continues to follow. A: 82 year old female admitted to [facility] 02/16/23 for Pneumonia left lower lobe, lactic acidosis P: Rehan will return to [facility] once she is medically cleared by . CM will coordinate transport with the facility w/c van. She will follow up with her PCP and discharge plan of care. CM will continue to follow.
[2023-02-19 12:17] LABS: BE (Venous) 10 mmol/L (-2-3); HCO3 (Venous) 34 mmol/L (23-28); O2 Sat (Venous) 62 %; TCO2 (Venous) 31 mmol/L (24-29); pCO2 (Venous) 51 mmHg (41-51); pH (Venous) 7.43 (7.31-7.41); pO2 (Venous) 34 mmHg
[2023-02-19] MEDS: Water,Injection,Sterile 10 ML VIAL (12:18)
[2023-02-19 12:34] LABS: Ammonia < 10 umol/L (11-32)
[2023-02-19] MEDS: POTASSIUM CHLORIDE 20 MEQ/100 ML BAG 50 MEQ IVPB ×2 (13:08→15:59)
--- NOTE | 2023-02-19 14:17 | STREC_ITS ---
Date of service: 02/19/23 Time of Service: 12:30 Speech Therapy Recommendations Report ST Recommendations: CONCESSION ATTENDANT Swallow Evaluation order consult received. Per nursing, patient throat clearing w/ pills in pudding. Evaluation attempted x2 this date; initially patient not available due to blood draw. Second attempt patient somnolent/not appropriate for PO. Will re-attempt 02/20/23. Coding
[2023-02-19 14:39] LABS: ESR 1 mm/hr (0-30)
[2023-02-19] MEDS: Hydrocortisone SOD SUC. 100 MG VIAL 25 MG IVP (16:05)
[2023-02-19 18:13] LABS: C-Reactive Protein 0.44 mg/dL (0.0-0.3)
[2023-02-19] MEDS: Melatonin 3 MG TAB PO (20:28)
[2023-02-19] MEDS: Metoprolol 25 MG TAB PO (20:28)
[2023-02-19] MEDS: Ziprasidone 20 MG CAP PO (20:28)
[2023-02-19 21:06] LABS: Legionella Ag Detection Urine Negative (Negative)
[2023-02-19] MEDS: LORazepam 0.5 MG TAB PO (21:32)
--- NOTE | 2023-02-19 22:24 | DI.VRAD_ITS ---
PROCEDURE INFORMATION: Exam: CT Head Without Contrast Exam date and time: 02/19/2023 10:11 PM Age: 82 years old Clinical indication: Stroke-like symptoms; Altered mental status/memory loss; Additional info: Acute delirium TECHNIQUE: Imaging protocol: Computed tomography of the head without contrast. Radiation optimization: All CT scans at this facility use at least one of these dose optimization techniques: automated exposure control; mA and/or kV adjustment per patient size (includes targeted exams where dose is matched to clinical indication); or iterative reconstruction. Other technique: STROKE PROTOCOL was implemented. COMPARISON: No relevant prior studies available. FINDINGS: Brain: Surgical clip in the anterior frontal brain with encephalomalacia/gliosis in the left frontal lobe and dystrophic calcification in the right frontal lobe. No brain edema. No intracranial hemorrhage. Cerebral ventricles: No ventriculomegaly. Paranasal sinuses: Visualized sinuses are unremarkable. No fluid levels. Mastoid air cells: Unremarkable. Bones/joints: Chronic postsurgical changes of the skull. Soft tissues: Unremarkable. IMPRESSION: No acute brain findings. Dictated and Authenticated by: Tej Dorsey MD. Ordering:[facility] Isaac Curtis MD
[2023-02-20] MEDS: Hydrocortisone SOD SUC. 100 MG VIAL 25 MG IVP ×3 (00:11→15:52)
[2023-02-20] MEDS: hydrOXYzine HCL 10 MG TAB PO ×4 (03:48→20:23)
[2023-02-20] MEDS: LORazepam 0.5 MG TAB PO ×3 (04:10→21:33)
[2023-02-20 05:39] VITALS: BP 137/80; PULSE 70; RESP 20; TEMP 35.9; O2SAT 98
[2023-02-20] MEDS: CEFEPIME 1 GM in Normal Saline 50 ML IVPB ×2 (05:55→17:33)
[2023-02-20 07:25] LABS: Absolute Basophil Count 0.02 10^3/uL (0.0-0.2); Absolute Eosinophil Count 0.14 10^3/uL (0.0-0.7); Absolute Lymphocyte Count 0.31 10^3/uL (1.2-3.4); Absolute Monocyte Count 0.68 10^3/uL (0.1-0.8); Basophils % 0.2; Eosinophils % 1.2; HCT 36.9 % (36.0-46.0); HGB 11.2 g/dL (11.2-15.7); Immature Grans % 0.9; Lymphocytes % 2.7; MCH 30.7 pg (27.0-33.0); MCHC 30.4 % (32.0-36.0); MCV 101 fL (80-95); MPV 10.3 fL (8.0-11.0); Monocytes % 5.9; Neutrophils % 89.1; Platelet Count 112 10^3/uL (130-400); RBC 3.65 10^6/uL (3.93-5.22); RDW 15.6 % (11.7-14.6); RDW-SD 57.4 fL; WBC 11.58 10^3/uL (4.4-10.8)
[2023-02-20 07:26] LABS: Absolute Neutrophil Count 10.32 10^3/uL (1.2-6.7)
[2023-02-20 07:35] VITALS: PULSE 105; O2SAT 100
[2023-02-20 07:39] LABS: Anion Gap 6.8 mmol/L (3-11); BUN 58 mg/dL (7-18); CO2 36.2 mmol/L (21.0-32.0); CREATININE 1.9 mg/dL (0.55-1.02); Chloride 105 mmol/L (98-107); Estimated GFR 26.36 (mL/min/1.73m2); Glucose 152 mg/dL (74-106); Magnesium 2.3 mg/dL (1.8-2.4); Sodium 148 mmol/L (136-145)
[2023-02-20 07:41] LABS: Potassium 2.9 mmol/L (3.5-5.1)
[2023-02-20 07:45] VITALS: BP 157/95
[2023-02-20 07:46] LABS: ALT 71 U/L (14-59); AST 56 U/L (15-37); Alkaline Phosphatase 68 U/L (46-116); Bilirubin, Direct 0.6 mg/dL (0.0-0.2); Bilirubin, Total 1.4 mg/dL (0.2-1.0); Total Protein 6.1 g/dL (6.4-8.2)
[2023-02-20] MEDS: guaiFENesin 600 MG TABCR PO ×2 (08:05→20:24)
[2023-02-20] MEDS: Spironolactone 25 MG TAB PO (08:05)
[2023-02-20] MEDS: Ziprasidone 20 MG CAP PO ×2 (08:07→20:24)
[2023-02-20] MEDS: Apixaban 2.5 MG TAB PO ×2 (08:08→20:24)
[2023-02-20] MEDS: Doxycycline Hyclate 100 MG CAP PO ×2 (08:09→20:24)
[2023-02-20] MEDS: Metoprolol 25 MG TAB PO ×2 (08:10→20:24)
[2023-02-20] MEDS: Simvastatin 20 MG TAB PO (08:10)
[2023-02-20] MEDS: Tiotropium Bromide-Respimat 10 PUFF INH IH (08:13)
[2023-02-20] MEDS: Potassium Chloride 10 MEQ CAPCR 20 MEQ PO ×3 (10:52→20:24)
[2023-02-20] MEDS: Normal Saline Flush 10 ML SYR IVP ×2 (11:14→17:33)
[2023-02-20 11:15] VITALS: BP 169/71; PULSE 69; RESP 20; TEMP 36.5; O2SAT 97
--- NOTE | 2023-02-20 11:36 | W.PM.PROGNOT ---
Date of Service Date of service: 02/20/23 Time of Service: 11:36 Assessment and Plan Assessment and plan (1) Delirium: Status: Acute Assessment and plan: -patient given Zyprexa 5 mg AM 02/19 and was started on Geodon HS 02/19 -does not appear to be on any medication to cause or worsen delirium -multiple factors contributing to her delirium including her severely restricted eyesight causing visual sensory deprivation along with being admitted to the intensive care unit with recent infection and heart failure. -She is not showing focal neurologic deficits to suggest stroke. -head CT without acute findings (2) Pneumonia: Status: Acute Assessment and plan: -Chest x-ray on admission suggested an incipient left lower lobe infiltrate. -She did have a fever on admission and has been afebrile since she has been on antibiotics. -Blood culture showing no growth. Urine culture also shows no significant growth. -Her MRSA screen was negative. -Vanc discontinued, continue cefepime for now and add doxycycline for 5 days of treatment Today is day 5 of cefepime and day 3 of doxycycline Qualifiers: Pneumonia type: due to unspecified organism Laterality: left Lung location: lower lobe of lung Qualified Code(s): J18.9 - Pneumonia, unspecified organism (3) Diastolic heart failure: Status: Chronic Assessment and plan: -Per her echo, her hemodynamics were consistent w/ grade III diastolic HF. -She is not requiring oxygen supplementation she has no peripheral edema. Forma -l echocardiogram reading demonstrated normal left ventricular systolic function with an LVEF of 55%. -She has pulmonary hypertension with RVSP of 61 mm with evidence of pressure overload with interventricular septal flattening -also has moderate to severely dilated atria bilaterally and moderate mitral and tricuspid regurgitation. Qualifiers: Heart failure chronicity: chronic Qualified Code(s): I50.32 - Chronic diastolic (congestive) heart failure (4) Atrial fibrillation, chronic: Status: Chronic Assessment and plan: -Rate is markedly improved and she has not required a diltiazem drip. -continue current regimen of using oral beta-blockers and calcium channel lockers. -In light of her chronic renal insufficiency she should remain off of digoxin especially since she has had a prior episode of digoxin toxicity -continue metoprolol tartrate 25 mg p.o. twice daily (5) Elevated troponin I level: Status: Acute Assessment and plan: -This is likely type II demand ischemia brought on by her A-fib and her hypoxemia. (6) Acute respiratory failure with hypoxia: Status: Acute Assessment and plan: -secondary to PNA, diastolic heart failure and emphysema as noted above (7) Lactic acidosis: Status: Acute Assessment and plan: -Lactic acidosis seems to be improving I think it was related to her tachycardia from her A-fib along with her hypoxemia from her pneumonia and CHF. (8) ILD (interstitial lung disease): Status: Chronic Assessment and plan: -Continue outpatient medical therapy and oxygen supplementation. -She is steroid-dependent with daily prednisone dosing and will be given stress dosing steroids especially in this picture of early sepsis upon presentation. -Begin to taper her stress dose steroids. (9) CKD (chronic kidney disease): Status: Chronic Assessment and plan: -Patient has had an increase in a BUN of 41 creatinine 2.1. She may have been over diuresed with the Lasix drip. Nevertheless she is clinically better. -monitor BUN and creatinine while we transition over to oral Lasix. Qualifiers: Chronic kidney disease stage: stage 3 (moderate) Chronic kidney disease stage 3 subtype: stage 3b (GFR 30-44) Qualified Code(s): N18.32 - Chronic kidney disease, stage 3b (10) HTN (hypertension): Status: Chronic Assessment and plan: Treatment with Lopressor. Once she is euvolemic we can consider trial of Jardiance. Creatinine stabilizes we may consider trial of an DES inhibitor or ARB. Qualifiers: Hypertension type: primary hypertension Qualified Code(s): I10 - Essential (primary) hypertension (11) DVT prophylaxis: Status: Acute Assessment and plan: Patient currently apixaban chronically for A-fib. Subjective Subjective Interval history since last seen: Patient observed lying in bed in no acute distress. She remains confused, only oriented to person however she is more calm as compared to yesterday. Exam Narrative Exam Narrative: Chronic anemia ill-appearing older female lying in bed in no acute distress, oriented to person only, heart regular rate and rhythm, lungs with diffuse coarse breath sounds throughout Objective Last Vital Signs Temp 97.7 F 02/20/23 11:15 Pulse 69 02/20/23 11:15 Resp 20 02/20/23 11:15 BP 169/71 H 02/20/23 11:15 Pulse Ox 97 02/20/23 11:15 Laboratory Results - last 24 hr 02/17/23 02/19/23 02/19/23 19:30 12:10 14:27 WBC RBC Hgb Hct MCV MCH MCHC RDW Plt Count MPV Immature Gran % Neutrophils % Lymphocytes % Monocytes % Eosinophils % Basophils % Nucleated RBC % Absolute Neutrophils Absolute Lymphocytes Absolute Monocytes Absolute Eosinophils Absolute Basophils ESR 1 VBG pH 7.43 H VBG pCO2 51 VBG pO2 34 VBG HCO3 34 H VBG Total CO2 31 H VBG O2 Saturation 62 VBG Base Excess 10 H Sodium Potassium Chloride Carbon Dioxide Anion Gap BUN Creatinine Est GFR (CKD-EPI 2020) Glucose Calcium Magnesium Total Bilirubin Conjugated Bilirubin AST ALT Alkaline Phosphatase Ammonia < 10 L C-Reactive Protein Total Protein Albumin Urine Legionella Ag Negative 02/19/23 02/20/23 17:35 07:00 WBC 11.58 H RBC 3.65 L Hgb 11.2 Hct 36.9 MCV 101 H MCH 30.7 MCHC 30.4 L RDW 15.6 H Plt Count 112 L MPV 10.3 Immature Gran % 0.9 Neutrophils % 89.1 Lymphocytes % 2.7 Monocytes % 5.9 Eosinophils % 1.2 Basophils % 0.2 Nucleated RBC % 0.0 Absolute Neutrophils 10.32 H Absolute Lymphocytes 0.31 L Absolute Monocytes 0.68 Absolute Eosinophils 0.14 Absolute Basophils 0.02 ESR VBG pH VBG pCO2 VBG pO2 VBG HCO3 VBG Total CO2 VBG O2 Saturation VBG Base Excess Sodium 148 H Potassium 2.9 L* Chloride 105 Carbon Dioxide 36.2 H Anion Gap 6.8 BUN 58 H Creatinine 1.9 H Est GFR (CKD-EPI 2020) 26.36 Glucose 152 H Calcium 9.0 Magnesium 2.3 Total Bilirubin 1.4 H Conjugated Bilirubin 0.6 H AST 56 H ALT 71 H Alkaline Phosphatase 68 Ammonia C-Reactive Protein 0.44 H Total Protein 6.1 L Albumin 3.0 L Urine Legionella Ag Time Spent with Patient Time Spent with Patient: >50 minutes Time was spent: preparing to see the patient(eg.review tests), obtaining and/or reviewing separately otained hiistory, ordering medications,tests, procedures, referring, communicating with other health director of health care marketing, indepentently interpreting results, counseling the patient and care coordination
--- NOTE | 2023-02-20 11:45 | SP_ITS ---
Date of service: 02/20/23 Time of Service: 11:45 Subjective Clinical (Bedside) Swallow Evaluation Speech Language Pathology Referred by: Ever Gray Referral Type: Clinical Swallow Evaluation Reason for Referral/HPI: Rehan is an 82 y/o F with macular degeneration, CHF, ILD, CKD, Atrial Fibrillation, HTN, who was recently hospitalizaed at [facility] and sent for subacute rehab at neighboring facility. She was sent to [facility] ED when she presented for outpatient ultrasound with echocardiogram due to noted fever, tachycardia and AMS at that time. On admit she was found to have worsening CHF and CKD, as well as pneumonia of left lung base. Nursing noted difficulty administering PO medications and COMPRESSOR MECHANIC BUS was consulted for Clinical Swallow Evaluation. COMPRESSOR MECHANIC BUS IMPRESSIONS & RECOMMENDATIONS: Rehan appears with good tolerance of limited trials of puree and thin liquids this date. She presents primarily with oral phase dysphagia c/b oral fixation behaviors with solid textures and poor awareness due to AMS. Suspect her difficulty with medications is explained largely by AMS with oral fixation/expectoration based on observation this date and nursing report. Will continue to re-assess for improvements in AMS and monitor for s/sx aspiration with full meals when able. FURTHER COMPRESSOR MECHANIC BUS SERVICES: Patient to be followed while on unit to monitor for improvement and diet texture upgrades. Recommendation at Discharge: COMPRESSOR MECHANIC BUS [facility] Diet Recommendations: ? SOLIDS: 4-Pureed Solids LIQUIDS: 0-Thin Liquids MEDICATIONS: Crushed, as able, with tsp puree (applesauce, pudding, yogurt) Alter medications only as advised by MD or Pharmacist RISK MANAGEMENT: HOB upright as tolerated; upright for all PO intake. Encourage physical mobility as tolerated. Oral hygiene BID/2x per day, & before/after PO intake using friction with too thbrush on all oral structures as tolerated, suction PRN Level of Assistance/Supervision: Assistive feeding only by trained staff/family PO intake only when awake/alert? Strategies/Adaptations/Assistive Equipment: Reduce auditory and/or visual distractions when eating Small sips and bites when eating Slow rate of intake Alternate intake of liquids and solids Small+frequent meals throughout day Posture/Positioning Needs: Maintain upright position at least 30 minutes after meals Avoid meals/snacks 2-3 hours prior to reclining/sleeping Sleep with head of bed elevated to reduce likelihood of nocturnal reflux Education Provided to: Nursing Topics Addressed: anatomy/physiology of swallowing mechanism, overt s/sx to monitor for re: potential aspiration of food / liquids, recommendations for improved oral care PLAN: Frequency: 2-3x/week for 1-2 weeks SUBJECTIVE: Patient received alert/awake, confused, frequently attempting to climb out of bed. Frequently unaware, asking for water while straw/cup is being presented, saying no to trials then immediately requesting them again, etc. Where am I? Oriented only to self, not date, time, place, or situation. Pain Reported? n/a Baseline Swallow Function: Patient unable to provide subjective report of current or baseline LOF due to AMS. PO Trials Assessed: IDDSI 0 Thin Liquids IDDSI 4 Puree Solid IDDSI 5 Minced and Moist Solid Oral Mechanism Examination: Oral mucosa is dry. Unable to fully assess dentition due to inability to follow instructions. Cranial Nerve Assessment: Unable to assess due to AMS but not observing any overt facial/labial asymmetries. Noting patient frequently blowing instead of sipping from straw. Oral Phase Findings: Anterior leakage from mouth Difficulty chewing Residue (anterior solids fixation, expectoration) Pharyngeal Phase Findings: Suspect Delayed swallow initiation ? Goals: Ballet Dancer Goals: Patient will remain free from aspiration-related illness, malnutrition, and dehydration. Patient/family will verbalize comprehension of education provided re: dx, strategies to maximize functioning, and role of ST. Short Term Goals: Patient will participate in ongoing diagnostic treatment addressing areas of oral dysphagia. Patient will tolerate Puree Diet and Thin liquids without overt s/s aspiration across 2/2 visits. Patient will tolerate PO trials for consideration of diet upgrade without overt s/s aspiration across 2/2 visits. COMPRESSOR MECHANIC BUS CPT Code: 20635 Clinical Swallowing Evaluation Time spent: 20 minutes (11:45 - 12:05) Coding CPT Codes EVALUATE SWALLOWING FUNCTION - 26177 ([id number]) Additional Codes Date of Service (17023) Date of service: 02/20/23
--- NOTE | 2023-02-20 12:00 | PT.INNT ---
Date of service: 02/20/23 Time of Service: 09:55 PT Notes Visit Reasons: Pneumonia Left Lower Lobe,Lactic Acidosis,Diastoli Patient on hold per nursing due to extreme confusion / agitation, requiring management with Ativan.
[2023-02-20] MEDS: Acetaminophen 325 MG TAB PO (13:37)
[2023-02-20] MEDS: LORazepam 2 MG/ML VIAL 1 MG IVP (15:51)
--- NOTE | 2023-02-20 16:19 | CHAPLAIN ---
I was called in to visit Rehan yesterday in the ICU. Her former daughter in law, with whom she is still very close, Jessica Heard, is an [employer] employee in [place]. Jessica is Rehan's HCA. Yesterday Belkis was struggling with recognizing Jessica, and she didn't at first recognize her son, Alvarez, when he arrived. I offered a prayer with Rehan and Jessica, and at Jessica's request contacted Rehan's signal inspector, Johnson Mcghee, of the [facility] ([phone]). Today when I visited Rehan she was on Med/Surg. She was sitting up in bed, not sure of who I was, but was pleasant. She seems worried but was unable to express what her concerns are. I will continue to visit.
[2023-02-20 18:36] LABS: Bilirubin Negative (Negative); Blood Large (Negative); Clarity Turbid (Clear); Glucose Negative (Negative); Ketones Trace mg/dL (Negative); Leukocyte Esterase Trace (Negative); Nitrite Negative (Negative); Specific Gravity 1.025 (1.005-1.025); Urobilinogen 0.2 mg/dL (Up to 0.2); pH 5.5 (5-8)
[2023-02-20 18:46] LABS: Bacteria Negative HPF (Negative); Crystals Negative HPF (Negative); Epithelial Cells Few HPF (Negative); Mucus Trace (Negative); Other Cells Rare Transitional (Negative); RBC >50 HPF (0-2)
[2023-02-20 18:47] LABS: C & S Indicated? Yes; Casts 0-2 Fine Granular LPF (Negative)
[2023-02-20 18:51] VITALS: BP 188/98; PULSE 95; RESP 18; TEMP 36.6; O2SAT 91
[2023-02-20] MEDS: Miconazole 2% Topical Powder 85 GM BTL TP (20:24)
[2023-02-20] MEDS: Melatonin 3 MG TAB PO (20:24)
[2023-02-20] MEDS: Triamcinolone 0.1% CR 15 GM TUBE TP (20:24)
[2023-02-21] MEDS: Hydrocortisone SOD SUC. 100 MG VIAL 25 MG IVP ×3 (00:20→15:58)
[2023-02-21 01:05] LABS: Streptococcus Pneumoniae Ag, U Negative (Negative)
[2023-02-21] MEDS: hydrOXYzine HCL 10 MG TAB PO ×3 (01:20→11:49)
[2023-02-21 01:22] VITALS: BP 170/96; PULSE 61; RESP 18; TEMP 36.7; O2SAT 93
[2023-02-21 02:13] VITALS: PULSE 108
[2023-02-21] MEDS: Haloperidol 5 MG/ML VIAL 2 MG IM/IV (02:35)
[2023-02-21] MEDS: Normal Saline Flush 10 ML SYR IVP ×3 (02:36→21:28)
[2023-02-21] MEDS: LORazepam 0.5 MG TAB PO ×3 (03:29→21:37)
[2023-02-21] MEDS: CEFEPIME 1 GM in Normal Saline 50 ML IVPB (05:54)
[2023-02-21 07:22] LABS: HCT 42.8 % (36.0-46.0); HGB 13.1 g/dL (11.2-15.7); MCH 31.5 pg (27.0-33.0); MCHC 30.6 % (32.0-36.0); MCV 103 fL (80-95); Platelet Count 115 10^3/uL (130-400); RBC 4.16 10^6/uL (3.93-5.22); RDW 15.9 % (11.7-14.6); RDW-SD 60.2 fL
[2023-02-21 08:00] VITALS: BP 160/108; PULSE 120; RESP 14; TEMP 36.3; O2SAT 90
[2023-02-21] MEDS: Tiotropium Bromide-Respimat 10 PUFF INH IH (08:09)
[2023-02-21 08:12] VITALS: O2SAT 95; O2SAT 98
[2023-02-21 08:29] LABS: Anion Gap 8.7 mmol/L (3-11); BUN 69 mg/dL (7-18); CO2 33.3 mmol/L (21.0-32.0); Calcium 9.7 mg/dL (8.5-10.1); Chloride 109 mmol/L (98-107); Estimated GFR 24.79 (mL/min/1.73m2); Glucose 152 mg/dL (74-106); Potassium 4.4 mmol/L (3.5-5.1); Sodium 151 mmol/L (136-145)
[2023-02-21] MEDS: Furosemide 40 MG TAB PO ×2 (08:34→16:00)
[2023-02-21] MEDS: Simvastatin 20 MG TAB PO (08:35)
[2023-02-21] MEDS: Spironolactone 25 MG TAB PO (08:35)
[2023-02-21] MEDS: Doxycycline Hyclate 100 MG CAP PO (08:35)
[2023-02-21] MEDS: Apixaban 2.5 MG TAB PO (08:36)
[2023-02-21] MEDS: Metoprolol 25 MG TAB PO (08:36)
[2023-02-21] MEDS: OLANZapine 5 MG TAB PO (08:36)
[2023-02-21] MEDS: guaiFENesin 600 MG TABCR PO (08:37)
[2023-02-21] MEDS: Triamcinolone 0.1% CR 15 GM TUBE TP ×2 (08:45→21:32)
[2023-02-21] MEDS: Miconazole 2% Topical Powder 85 GM BTL TP ×2 (08:46→21:32)
[2023-02-21 11:58] VITALS: BP 150/90
[2023-02-21 15:04] VITALS: BP 149/99; PULSE 57; RESP 16; TEMP 36.8; O2SAT 91
--- NOTE | 2023-02-21 15:24 | CHAPLAIN ---
Rehan is in bed, wearing her own clothes, after trying continually to take her nicole off. Two family members were with her and Rehan was restlessly moving her arms and legs around. She didn't appear to be in pain according to her family, but was restless. Her former daughter in law, Jessica, who is Rehan's HCA, said she was waiting to speak with Michelle Rodriguez from Palliative Care this afternoon. Dr. Mcdermott visited while I was there and explained to Jessica that Rehan is dealing with delirium and he's trying a second medication to see if it will improve. Rehan didn't eat or drink today, but did take her meds according to her nurse. Jessicadrea said that Rehan is DNR/DNI and was living at [facility] before she was brought here. In the ICU a couple of days ago, she didn't recognize family members at first, but did engage in conversation. Today she is not calling anyone by their names and isn't engaging in a conversation. Jessica cared for her mom, who was at home on hospice, until her mom's last February, so this is the second person with significant health issues that she has been caring for in a short time. I will continue to visit.
--- NOTE | 2023-02-21 15:42 | W.PM.PROGNOT ---
Date of Service Date of service: 02/21/23 Time of Service: 15:43 Assessment and Plan Assessment and plan (1) Delirium: Status: Acute Assessment and plan: -patient given Zyprexa 5 mg AM 02/19 and was started on Geodon HS 02/19 -does not appear to be on any medication to cause or worsen delirium -multiple factors contributing to her delirium including her severely restricted eyesight causing visual sensory deprivation along with being admitted to the intensive care unit with recent infection and heart failure. -She is not showing focal neurologic deficits to suggest stroke. -Discontinue Geodon, started Zyprexa 5 mg daily -Can get additional as needed dose or increase to twice daily dosing if needed (2) Pneumonia: Status: Acute Assessment and plan: -Chest x-ray on admission suggested an incipient left lower lobe infiltrate. -She did have a fever on admission and has been afebrile since she has been on antibiotics. -Blood culture showing no growth. Urine culture also shows no significant growth. -Her MRSA screen was negative. -Vanc discontinued, continue cefepime for now and add doxycycline for 5 days of treatment Today is day 6 of cefepime and day 4 of doxycycline Qualifiers: Pneumonia type: due to unspecified organism Laterality: left Lung location: lower lobe of lung Qualified Code(s): J18.9 - Pneumonia, unspecified organism (3) Diastolic heart failure: Status: Chronic Assessment and plan: -Per her echo, her hemodynamics were consistent w/ grade III diastolic HF. -echocardiogram reading demonstrated normal left ventricular systolic function with an LVEF of 55%. -She has pulmonary hypertension with RVSP of 61 mm with evidence of pressure overload with interventricular septal flattening -also has moderate to severely dilated atria bilaterally and moderate mitral and tricuspid regurgitation. Qualifiers: Heart failure chronicity: chronic Qualified Code(s): I50.32 - Chronic diastolic (congestive) heart failure (4) Atrial fibrillation, chronic: Status: Chronic Assessment and plan: -Rate is markedly improved and she has not required a diltiazem drip. -continue current regimen of using oral beta-blockers and calcium channel lockers. -In light of her chronic renal insufficiency she should remain off of digoxin especially since she has had a prior episode of digoxin toxicity -continue metoprolol tartrate 25 mg p.o. twice daily (5) Elevated troponin I level: Status: Acute Assessment and plan: -This is likely type II demand ischemia brought on by her A-fib and her hypoxemia. (6) Acute respiratory failure with hypoxia: Status: Acute Assessment and plan: -secondary to PNA, diastolic heart failure and emphysema as noted above (7) Lactic acidosis: Status: Acute Assessment and plan: -Lactic acidosis seems to be improving I think it was related to her tachycardia from her A-fib along with her hypoxemia from her pneumonia and CHF. (8) ILD (interstitial lung disease): Status: Chronic Assessment and plan: -Continue outpatient medical therapy and oxygen supplementation. -She is steroid-dependent with daily prednisone dosing and will be given stress dosing steroids especially in this picture of early sepsis upon presentation. -Begin to taper her stress dose steroids. (9) CKD (chronic kidney disease): Status: Chronic Assessment and plan: -Patient has had an increase in a BUN of 41 creatinine 2.1. She may have been over diuresed with the Lasix drip. Nevertheless she is clinically better. -monitor BUN and creatinine while we transition over to oral Lasix. Qualifiers: Chronic kidney disease stage: stage 3 (moderate) Chronic kidney disease stage 3 subtype: stage 3b (GFR 30-44) Qualified Code(s): N18.32 - Chronic kidney disease, stage 3b (10) HTN (hypertension): Status: Chronic Assessment and plan: Treatment with Lopressor. Once she is euvolemic we can consider trial of Jardiance. Creatinine stabilizes we may consider trial of an DES inhibitor or ARB. Qualifiers: Hypertension type: primary hypertension Qualified Code(s): I10 - Essential (primary) hypertension (11) DVT prophylaxis: Status: Acute Assessment and plan: Patient currently apixaban chronically for A-fib. (12) Advance care planning: Status: Acute Assessment and plan: As noted above, prolonged discussion was held with the patient's DPOA and and daughter, ultimately plan is to continue to attempt medication therapy with Zyprexa or alternatives in order to improve patient's mental status and delirium. However, in the event that patient does not make any improvements or has significant decline over the next 48 hours family is prepared to transition to TRAVEL PHYSICAL THERAPIST. Subjective Subjective Interval history since last seen: Patient remains intermittently confused and mostly nonverbal. Prolonged discussion was had with the patient's DURABLE POWER OF FAST FOOD ATTENDANT who is her [id number] Jessica, as well as her granddaughter who is a SADDLE STITCHER on [employer]. This discussion centered around the patient's current mental status and overall worsening of medical condition, especially in the setting of patient not taking in any p.o. intake. Overall, they have expressed her wishes not to engage in any additional diagnostics or interventions, and to continue to attempt to treat her delirium. However, in the event that patient remains confused over the next 48 hours, or has worsening in her medical condition, they would wish to pursue TRAVEL PHYSICAL THERAPIST/hospice Exam Narrative Exam Narrative: Chronic anemia ill-appearing older female lying in bed in no acute distress, oriented to person only, heart regular rate and rhythm, lungs with diffuse coarse breath sounds throughout Objective Last Vital Signs Temp 98.2 F 02/21/23 15:04 Pulse 57 L 02/21/23 15:04 Resp 16 02/21/23 15:04 BP 149/99 H 02/21/23 15:04 Pulse Ox 91 L 02/21/23 15:04 Laboratory Results - last 24 hr 02/17/23 02/20/23 02/21/23 19:30 18:20 06:45 WBC 15.60 H RBC 4.16 Hgb 13.1 Hct 42.8 MCV 103 H MCH 31.5 MCHC 30.6 L RDW 15.9 H Plt Count 115 L MPV 11.0 Sodium Cancelled Potassium Cancelled Chloride Cancelled Carbon Dioxide Cancelled Anion Gap Cancelled BUN Cancelled Creatinine Cancelled Est GFR (CKD-EPI 2020) Cancelled Glucose Cancelled Calcium Cancelled Urine Color Brown Urine Clarity Turbid Urine pH 5.5 Ur Specific Watson 1.025 Urine Protein 100 H Urine Ketones Trace H Urine Blood Large H Urine Nitrite Negative Urine Bilirubin Negative Urine Urobilinogen 0.2 Ur Leukocyte Esterase Trace H Urine RBC >50 H Urine WBC 3-5 Ur Epithelial Cells Few Urine Crystals Negative Urine Bacteria Negative Urine Casts 0-2 Fine Granular Urine Mucus Trace Urine Other Rare Transitional Ur Culture Indicated? Yes Urine Glucose Negative Ur Strep pneumoniae Ag Negative 02/21/23 07:55 WBC RBC Hgb Hct MCV MCH MCHC RDW Plt Count MPV Sodium 151 H Potassium 4.4 D Chloride 109 H Carbon Dioxide 33.3 H Anion Gap 8.7 BUN 69 H Creatinine 2.0 H Est GFR (CKD-EPI 2020) 24.79 Glucose 152 H Calcium 9.7 Urine Color Urine Clarity Urine pH Ur Specific Watson Urine Protein Urine Ketones Urine Blood Urine Nitrite Urine Bilirubin Urine Urobilinogen Ur Leukocyte Esterase Urine RBC Urine WBC Ur Epithelial Cells Urine Crystals Urine Bacteria Urine Casts Urine Mucus Urine Other Ur Culture Indicated? Urine Glucose Ur Strep pneumoniae Ag Time Spent with Patient Time Spent with Patient: >50 minutes Time was spent: preparing to see the patient(eg.review tests), obtaining and/or reviewing separately otained hiistory, referring, communicating with other health lawn care specialist, indepentently interpreting results, counseling the patient and care coordination
--- NOTE | 2023-02-21 17:32 | PDOC.CMPRO ---
Date of service: 02/21/23 Time of Service: 17:32 Care Management Progress Note Progress Note Text Progress Note Text: S/O: Rehan was lying in bed when CM met with her. Jessica, her daughter in law, was by her side. Rehan was not able to communicate with CM, due to delirium. Occasionally she would yell out for Jessica, and reach out for her hand. Jessica stated that per MD, she will likely remain at [facility] for a couple more days to see if she is able to recover from this, but Jessica reported that per Rehan's AD, she does not want aggressive measures, and she would prefer to be comfortable. Palliative care was consulted. CM will continue to follow. A: 82 year old female admitted to [facility] 02/16/23 for Pneumonia left lower lobe, lactic acidosis P: Rehan will return to [facility] once she is medically cleared by . CM will coordinate transport with the facility w/c van. She will follow up with her PCP and discharge plan of care. CM will continue to follow.
[2023-02-21] MEDS: Melatonin 3 MG TAB PO (21:37)
--- NOTE | 2023-02-21 21:47 | NUR.NOTE ---
Nursing Note: Patient received alert but restless on bed with family members at bedside. IVPB of cefepime not infusing, IV access found out locked, attempted to flushed but became infiltrated. HS meds given crushed with apple sauce but not tolerated, Family stated not to push thru and they stated not to put anymore IV, patient is heading to plan of comfort measures but decisions will be made on Sunday. At this time they requested to have sitter all night since patient is unstable, chief supply chain officer made aware and will notify MD. This automobile and property underwriter able to gave melatonin and ativan po PRN in pudding and well taken. Rashes on abdomen and back noted, ointment as ordered applied. Nursing Will continue to observed for safety and sitter provided at bedside and bed alarm is on.
[2023-02-22] MEDS: hydrOXYzine HCL 10 MG TAB PO (01:14)
[2023-02-22] MEDS: OLANZapine 5 MG TAB PO ×2 (01:14→20:50)
[2023-02-22] MEDS: Tiotropium Bromide-Respimat 10 PUFF INH IH (07:40)
[2023-02-22 08:27] VITALS: BP 138/78; PULSE 40; RESP 20; TEMP 36.4; O2SAT 71
[2023-02-22] MEDS: Miconazole 2% Topical Powder 85 GM BTL TP ×2 (08:37→21:11)
[2023-02-22] MEDS: Triamcinolone 0.1% CR 15 GM TUBE TP ×2 (08:37→21:11)
[2023-02-22 08:41] VITALS: PULSE 110
--- NOTE | 2023-02-22 11:25 | PGE_ITS ---
Date of Service Date of service: 02/22/23 Time of Service: 11:25 Assessment and Plan Assessment and plan (1) Delirium: Status: Acute Assessment and plan: -patient given Zyprexa 5 mg AM 02/19 and was started on Geodon HS 02/19 -does not appear to be on any medication to cause or worsen delirium -multiple factors contributing to her delirium including her severely restricted eyesight causing visual sensory deprivation along with being admitted to the intensive care unit with recent infection and heart failure. -She is not showing focal neurologic deficits to suggest stroke. -Discontinue Geodon, started Zyprexa 5 mg daily -Can get additional as needed dose or increase to twice daily dosing if needed (2) Pneumonia: Status: Acute Assessment and plan: -Chest x-ray on admission suggested an incipient left lower lobe infiltrate. -She did have a fever on admission and has been afebrile since she has been on antibiotics. -Blood culture showing no growth. Urine culture also shows no significant growth. -Her MRSA screen was negative. -Vanc discontinued, continue cefepime for now and add doxycycline for 5 days of treatment Today is day 7 of cefepime and day 5 of doxycycline Qualifiers: Pneumonia type: due to unspecified organism Laterality: left Lung location: lower lobe of lung Qualified Code(s): J18.9 - Pneumonia, unspecified organism (3) Diastolic heart failure: Status: Chronic Assessment and plan: -Per her echo, her hemodynamics were consistent w/ grade III diastolic HF. -echocardiogram reading demonstrated normal left ventricular systolic function with an LVEF of 55%. -She has pulmonary hypertension with RVSP of 61 mm with evidence of pressure overload with interventricular septal flattening -also has moderate to severely dilated atria bilaterally and moderate mitral and tricuspid regurgitation. Qualifiers: Heart failure chronicity: chronic Qualified Code(s): I50.32 - Chronic diastolic (congestive) heart failure (4) Atrial fibrillation, chronic: Status: Chronic Assessment and plan: -Rate is markedly improved and she has not required a diltiazem drip. -continue current regimen of using oral beta-blockers and calcium channel lockers. -In light of her chronic renal insufficiency she should remain off of digoxin especially since she has had a prior episode of digoxin toxicity -continue metoprolol tartrate 25 mg p.o. twice daily (5) Elevated troponin I level: Status: Acute Assessment and plan: -This is likely type II demand ischemia brought on by her A-fib and her hypoxemia. (6) Acute respiratory failure with hypoxia: Status: Acute Assessment and plan: -secondary to PNA, diastolic heart failure and emphysema as noted above (7) Lactic acidosis: Status: Acute Assessment and plan: -Lactic acidosis seems to be improving I think it was related to her tachycardia from her A-fib along with her hypoxemia from her pneumonia and CHF. (8) ILD (interstitial lung disease): Status: Chronic Assessment and plan: -Continue outpatient medical therapy and oxygen supplementation. -She is steroid-dependent with daily prednisone dosing and will be given stress dosing steroids especially in this picture of early sepsis upon presentation. -Begin to taper her stress dose steroids. (9) CKD (chronic kidney disease): Status: Chronic Assessment and plan: -Patient has had an increase in a BUN of 41 creatinine 2.1. She may have been over diuresed with the Lasix drip. Nevertheless she is clinically better. -monitor BUN and creatinine while we transition over to oral Lasix. Qualifiers: Chronic kidney disease stage: stage 3 (moderate) Chronic kidney disease stage 3 subtype: stage 3b (GFR 30-44) Qualified Code(s): N18.32 - Chronic kidney disease, stage 3b (10) HTN (hypertension): Status: Chronic Assessment and plan: Treatment with Lopressor. Once she is euvolemic we can consider trial of Jardiance. Creatinine stabilizes we may consider trial of an DES inhibitor or ARB. Qualifiers: Hypertension type: primary hypertension Qualified Code(s): I10 - Essential (primary) hypertension (11) DVT prophylaxis: Status: Acute Assessment and plan: Patient currently apixaban chronically for A-fib. (12) Advance care planning: Status: Acute Assessment and plan: -As noted above, prolonged discussion was held with the patient's DPOA and and daughter on 02/21, ultimately plan is to continue to attempt medication therapy with Zyprexa or alternatives in order to improve patient's mental status and delirium. However, in the event that patient does not make any improvements or has significant decline over the next 48 hours family is prepared to transition to WALLPAPER HANGER HELPER. -As of 02/22/2023, patient is no longer taking p.o. medications -Plan to rediscuss with family regarding potential transition to WALLPAPER HANGER HELPER Subjective Subjective Interval history since last seen: Patient remains intermittently confused and mostly nonverbal, although today she is not taking her p.o. medications. Exam Narrative Exam Narrative: Chronic anemia ill-appearing older female lying in bed in no acute distress, oriented to person only, heart regular rate and rhythm, lungs with diffuse coarse breath sounds throughout Objective Last Vital Signs Temp 97.5 F L 02/22/23 08:27 Pulse 110 H 02/22/23 08:41 Resp 20 02/22/23 08:27 BP 138/78 02/22/23 08:27 Pulse Ox 71 L 02/22/23 08:27 Time Spent with Patient Time Spent with Patient: >50 minutes Time was spent: preparing to see the patient(eg.review tests), obtaining and/or reviewing separately otained hiistory, referring, communicating with other health health care manager, indepentently interpreting results, counseling the patient and care coordination
--- NOTE | 2023-02-22 11:49 | CMPROGNOTE_ITS ---
Date of service: 02/22/23 Time of Service: 11:49 Care Management Progress Note Progress Note Text Progress Note Text: S/O: Rehan was lying in bed when CM met with her. There was an STONE CRUSHER OPERATOR sitting with her. She appeared more comfortable today, although she was restless at times while CM was in the room. Per report, she will likely transition to comfort measures if she continues to decline. CM will continue to follow. A: 82 year old female admitted to [facility] 02/16/23 for Pneumonia left lower lobe, lactic acidosis P: Rehan will return to [facility] once she is medically cleared by . CM will coordinate transport with the facility w/c van. She will follow up with her PCP and discharge plan of care. CM will continue to follow.
[2023-02-22] MEDS: diphenhydrAMINE Elixir 25 MG/10 ML CUP PO (15:20)
[2023-02-22 15:42] VITALS: BP 141/80
--- NOTE | 2023-02-22 16:47 | CHAPLAIN ---
I visited Rehan's room a few times today. She had an MECHANICAL DRAFTER with when family members weren't there because she continues to be very restless and moving around a great deal. At one point she was sleeping when I stopped in. She isn't speaking to family, and didn't eat anything today according to family members. Family members are deciding if her care should be directed toward comfort. Her former daughter in law and good friend, Jessica Jiekody, is Rehan's HCA.
[2023-02-22] MEDS: Melatonin 3 MG TAB PO (20:49)
[2023-02-22] MEDS: Cefuroxime 500 MG TAB PO (20:55)
[2023-02-22 22:37] VITALS: BP 145/85; PULSE 97; RESP 22; TEMP 36; O2SAT 90
[2023-02-23] MEDS: hydrOXYzine HCL 10 MG TAB PO (00:31)
[2023-02-23] MEDS: LORazepam 0.5 MG TAB PO (00:31)
--- NOTE | 2023-02-23 02:03 | NUR.NOTE ---
Nursing Note: Pt very restless at start of shift, but responsive to this nurse. Patient oriented to self only. Pt able to take 3 scheduled medications with ice cream (crushed) but then began to spit out medication as well as water/ice cream. Unable to administered remaining scheduled medications. Patient up to bedside commode with 2 assist to stand/pivot, continent. Patient had rash to bilateral posterior thigh/lower back, scheduled cream applied per MAY. No other skin issues noted at this time. Patient became more restless/agitated at 0000, able to administer PRN hydroxyzine and PRN lorazepam crushed in ice cream. Patient restful x 1 hour. At 0100, patient restless again stating I have to get up!. Patient assisted x2 to stand pivot to bedside commode. Patient skin appeared mottled from mccoy-chest and limbs were dusky/cold to touch. Patient oxygen saturation found to be 68% at this time, with recovery to 80% once back to bed and HOB raised to [address]. [address] nasal canula at this time, patient repeatedly stating I don't want it!, and/or removing from nose/swatting at this nurse while trying to apply the canula. CC notified, MD made aware and to bedside to assess patient. Family called, notified of change in condition. Sitter at bedside for patient safety/comfort.
[2023-02-23] MEDS: LORazepam 2 MG/ML VIAL IV/SC (07:53)
[2023-02-23] MEDS: Triamcinolone 0.1% CR 15 GM TUBE TP ×2 (09:22→22:07)
[2023-02-23] MEDS: Miconazole 2% Topical Powder 85 GM BTL TP ×2 (09:22→22:07)
--- NOTE | 2023-02-23 09:45 | PDOC.CMPRO ---
Date of service: 02/23/23 Time of Service: 09:45 Care Management Progress Note Progress Note Text Progress Note Text: S/O: Rehan was lying in bed, resting comfortably when CM met with her. She had family members in the room visiting, including Jessica, her daughter in law. Rehan was transitioned to comfort measures today, and she will remain at [facility] for end of life care. Her family is agreeable to this plan. CM will continue to follow. A: 82 year old female admitted to [facility] 02/16/23 for Pneumonia left lower lobe, lactic acidosis P: Rehan has transitioned to comfort measures today. She will remain at [facility] for end of life care. CM will continue to support Rehan and her family through this difficult time.
--- NOTE | 2023-02-23 10:23 | W.PM.PROGNOT ---
Date of Service Date of service: 02/23/23 Time of Service: Assessment and Plan Assessment and plan (1) Comfort measures only status: Status: Acute Assessment and plan: - Patient was transitioned to comfort measures only early in the morning of 02/23/2023 -Stop vital checks, all labs, and discontinue all medications not directly related to patient comfort -Patient on morphine drip, continue as needed Ativan, and Haldol (2) Delirium: Status: Acute Assessment and plan: -patient given Zyprexa 5 mg AM 02/19 and was started on Geodon HS 02/19 -does not appear to be on any medication to cause or worsen delirium -multiple factors contributing to her delirium including her severely restricted eyesight causing visual sensory deprivation along with being admitted to the intensive care unit with recent infection and heart failure. -She is not showing focal neurologic deficits to suggest stroke. 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 -echocardiogram reading demonstrated normal left ventricular systolic function with an LVEF of 55%. -She has pulmonary hypertension with RVSP of 61 mm with evidence of pressure overload with interventricular septal flattening -also has moderate to severely dilated atria bilaterally and moderate mitral and tricuspid regurgitation. 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 (7) Acute respiratory failure with hypoxia: Status: Acute Assessment and plan: -secondary to PNA, diastolic heart failure and emphysema as noted above (8) Lactic acidosis: Status: Acute Assessment and plan: -Lactic acidosis seems to be improving I think it was related to her tachycardia from her A-fib along with her hypoxemia from her pneumonia and CHF. 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 She may have been over diuresed with the Lasix drip. Nevertheless she is clinically better. 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 as noted above Qualifiers: Hypertension type: primary hypertension Qualified Code(s): I10 - Essential (primary) hypertension Subjective Subjective Interval history since last seen: Patient had significant worsening of her condition overnight prompting rn practitioner to call family at bedside at which time patient was transitioned to ENVIRONMENTAL HEALTH INSPECTOR Objective Last Vital Signs Temp 96.8 F L 02/22/23 22:37 Pulse 97 H 02/22/23 22:37 Resp 22 02/22/23 22:37 BP 145/85 H 02/22/23 22:37 Pulse Ox 90 L 02/22/23 22:37 Laboratory Results - last 24 hr 02/23/23 05:35 WBC Cancelled RBC Cancelled Hgb Cancelled Hct Cancelled MCV Cancelled MCH Cancelled MCHC Cancelled RDW Cancelled Plt Count Cancelled MPV Cancelled Immature Gran % Cancelled Neutrophils % Cancelled Band Neutrophils % Cancelled Lymphocytes % Cancelled Atypical Lymphs % Cancelled Monocytes % Cancelled Eosinophils % Cancelled Basophils % Cancelled Metamyelocytes % Cancelled Myelocytes % Cancelled Promyelocytes % Cancelled Other Cells % Cancelled Nucleated RBC % Cancelled Absolute Neutrophils Cancelled Absolute Lymphocytes Cancelled Absolute Monocytes Cancelled Absolute Eosinophils Cancelled Absolute Basophils Cancelled RBC Morphology Cancelled Polychromasia Cancelled Hypochromasia Cancelled Poikilocytosis Cancelled Basophilic Stippling Cancelled Anisocytosis Cancelled Microcytosis Cancelled Macrocytosis Cancelled Spherocytes Cancelled Tear Drop Cells Cancelled Ovalocytes Cancelled Stomatocytes Cancelled [place] Bodies Cancelled Damián Cells/Echinocytes Cancelled Acanthocytes (Spur) Cancelled Schistocytes Cancelled Sodium Cancelled Potassium Cancelled Chloride Cancelled Carbon Dioxide Cancelled Anion Gap Cancelled BUN Cancelled Creatinine Cancelled Est GFR (CKD-EPI 2020) Cancelled Glucose Cancelled Calcium Cancelled Time Spent with Patient Time Spent with Patient: >50 minutes Time was spent: preparing to see the patient(eg.review tests), obtaining and/or reviewing separately otained hiistory, referring, communicating with other health child care attendant, indepentently interpreting results, counseling the patient and care coordination
--- NOTE | 2023-02-23 12:17 | W.NUTRFU ---
Date of service: 02/23/23 Time of Service: 12:17 Nutrition Note NOTE: Pt transitioned to comfort measures only. Continues as assist feed and puree/thin liquids consistency. I liberalized diet from heart healthy to regular. Comfort cart will be provided for any visitors. No aggressive nutrition interventions planned at this time. Time Spent in Nutritional Counseling and Treatment: 0
[2023-02-23 23:23] VITALS: RESP 8
[2023-02-23 23:42] VITALS: RESP 8
--- NOTE | 2023-02-28 09:31 | DSE_ITS ---
Date of service: 02/24/23 Time of Service: 07:00 DS: Diagnosis Discharge Diagnosis (1) Comfort measures only status: Status: Acute Asessment and Plan: Patient was designated comfort measures only yesterday because of rapidly declining health status. Overnight she became unresponsive and was pronounced at 0505. (2) Delirium: Status: Acute Asessment and Plan: Due to her rapidly declining health status she was not given any further medications for delirium. (3) Pneumonia: Status: Acute Asessment and Plan: She had severe pneumonia and was not recovering. This was the ultimate cause of her . (4) Diastolic heart failure: Status: Chronic (5) Atrial fibrillation, chronic: Status: Chronic (6) Elevated troponin I level: Status: Acute (7) Acute respiratory failure with hypoxia: Status: Acute (8) Lactic acidosis: Status: Acute (9) ILD (interstitial lung disease): Status: Chronic (10) CKD (chronic kidney disease): Status: Chronic (11) HTN (hypertension): Status: Chronic Discharge Plan Disposition Patient Disposition: Discharge Details Reason For Visit: Pneumonia Left Lower Lobe,Lactic Acidosis,Diastoli Admit Date/Time: 02/16/23 20:54 Admit Provider: Ever Gray Attending Provider: Ever Gray Primary Care Provider: Raquel Martin Hospital Course Hospital Course: Patient had rapidly deteriorated and was made comfort measures only on 02/23/2023. During the overnight hours she became unresponsive and succumbed to her illness at 0505. No resuscitative efforts were made. Discharge Data Cause of : Pneumonia Discharge Date/Time-TO BE ENTERED AT DEPARTURE: 02/24/23 05:10 DS: Summary Time Spent with Patient providing and/or coordinating discharge services: Less than 30 minutes Status at Discharge Functional status at discharge: bed bound () Overall status at discharge: other () Mental Status: other () Speech and Movement: other () Mood: other () Affect: other () Exam Psych Mental Status: other () Speech and Movement: other () Mood: other () Affect: other () DS: Data Vitals/I&O Vitals and I&O: Vital Signs Temperature 36.0 C L 02/22/23 22:37 Temperature Source Tympanic 02/22/23 22:37 Pulse 97 H 02/22/23 22:37 Pulse Rhythm Regular 02/23/23 01:05 Pulse 86 02/19/23 15:00 Respiratory Rate 8 L 02/23/23 23:42 Respiratory Effort Short of Breath, Labored, Accessory Muscle Use, Nasal Flaring, Pursed Lip 02/23/23 01:05 Respiratory Depth Shallow 02/23/23 01:05 Respiratory Pattern Tachypnea 02/23/23 01:05 Blood Pressure 145/85 H 02/22/23 22:37 Blood Pressure Mean 97 02/19/23 13:26 Blood Pressure Position Sitting 02/18/23 09:45 Pulse Oximetry 90 L 02/22/23 22:37 Oxygen Delivery Method Room Air 02/23/23 23:23 Oxygen Flow Rate 0 02/23/23 23:23 Fraction of Inspired Oxygen (FIO2) 98 02/17/23 09:14 Pain Level 0 02/21/23 08:00 Comment pt refusing to keep oxygen on 02/22/23 22:37 PFSH All Active Problems (Updated 02/23/23 @ 10:24 by Korey Mcdermott MD) Comfort measures only status (Acute) Advance care planning (Acute) Acute respiratory failure with hypoxia (Acute) Delirium (Acute) Elevated troponin I level (Acute) DVT prophylaxis (Acute) Lactic acidosis (Acute) CKD (chronic kidney disease) (Chronic) Pneumonia (Acute) Raynauds disease (Acute) Lower extremity edema (Acute) Weight loss (Acute) ILD (interstitial lung disease) (Chronic) Personal history of nicotine dependence (Acute) Abnormal chest x-ray (Acute) Pain, foot (Acute) Nail dystrophy (Acute) Corns and callosities (Acute) Diastolic heart failure (Chronic) Dyspnea (Acute) Tachycardia (Acute) Pre-diabetes (Acute) PVD (peripheral vascular disease) (Chronic) Lumbar radiculopathy (Acute) Anxiety (Chronic) COPD (chronic obstructive pulmonary disease) (Chronic) Atrial fibrillation, chronic (Chronic) HTN (hypertension) (Chronic) Claudication of left lower extremity (Chronic) Pulmonary emphysema (Chronic) PMR (polymyalgia rheumatica) (Chronic) Medical History UTI (urinary tract infection) Elevated troponin level not due to acute coronary syndrome Acute respiratory failure with hypoxia and hypercarbia Acute exacerbation of chronic obstructive pulmonary disease (COPD) B12 deficiency Elevated serum creatinine COVID-19 Hx of chronic cholecystitis Hx of carpal tunnel syndrome R side Dense breasts 2019. Category C. Normal mammogram. Dysuria (~10/2018) Limited range of motion of shoulder R sided. 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 + HR HPV beginning 2003. 2013 Pap Nl/HPV Neg 2014 Pap Nl/HPV + 2015 Pap Nl/HPV + ( Neg HPV 16 & 18) 2017 Pap Nl/HPV Neg 2020. Pap Nl/HPV Neg. Recommended stop screening paps. Surgical History History of cholecystectomy Hx laparoscopic cholecystectomy (~12/30/19) H/O: pt. soraida, pt. states one child was born vaginally S/P cataract surgery S/P tubal ligation Social History Smoking/Tobacco Use Status: Former Tobacco Use Quit Date: 09/21/06 Tobacco: How many years used: 30 Smoking risk assessment performed?: Yes Alcohol Intake: current Alcohol Intake frequency: holidays/special occasions only Alcohol type: wine and hard liquor Drug use: Never Substance use type: does not use Details: alcohol: t-7 Household members: none and other Details: Lives alone at [facility]. D x20 years Housing: [facility] Number of Children: 5 number of grandchildren: 3 current occupation: Retired with 50 years [employer] Pets and animals: Yes (Jose Currie) Pets and animals: dog(s) Sexually active: No Current gender identity: female Do you feel safe at home: Yes Do you feel safe in your relationship?: Yes Additional Social history: Son-Arron. 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 GC - Bhargav 24, Naeem 20, Pavithra 21. Female Reproductive History Menstrual Menopause type: natural History History 6 Para Hx # Term Pregnancies 5 Multiple births Hx # Pregnancies Ectopic pregnancies AB induced Hx Number of Living Children AB spontaneous Time Spent with Patient Time Spent with Patient: <45 minutes Time was spent: preparing to see the patient(eg.review tests)
== END 2023-02-24 05:10 | disposition expired | DRG 193 ==
LOC: ER 20:20 → ICU 22:14 → MS 02-19 17:26
PROVIDERS: Family Medicine; Nurse Practitioner Acute Care; Admitting Provider Internal Medicine; Emergency Provider Physician Assistant; PCP Physician Assistant Medical; Visit Provider Internal Medicine
DX: J18.9 Pneumonia, unspecified organism (principal); J96.01 Acute respiratory failure with hypoxia; I50.32 Chronic diastolic (congestive) heart failure; E87.20 Acidosis, unspecified; I48.20 Chronic atrial fibrillation, unspecified; I13.0 Hypertensive heart and chronic kidney disease with heart failure and stage 1 through stage 4 chronic kidney disease, or unspecified chronic kidney disease; J44.0 Chronic obstructive pulmonary disease with (acute) lower respiratory infection; I24.89 Other forms of acute ischemic heart disease; F05 Delirium due to known physiological condition; M35.3 Polymyalgia rheumatica; N18.32 Chronic kidney disease, stage 3b; Z51.5 Encounter for palliative care; I27.20 Pulmonary hypertension, unspecified; Z66 Do not resuscitate; I73.00 Raynaud's syndrome without gangrene; F41.9 Anxiety disorder, unspecified; M54.16 Radiculopathy, lumbar region; R63.4 Abnormal weight loss; Z87.891 Personal history of nicotine dependence; I45.19 Other right bundle-branch block; Z79.52 Long term (current) use of systemic steroids
CPT/HCPCS: 00123; 36410; 36415; 80048; 80053; 80076; 80307; 82550; 82805; 84145; 85027; 85652; 87040; 87449; 87635; 87637; 87641; 92610; 93005; 94640; 96361; 96365; 96375; 97162; 97530; 99285; 70450; 71046; 80162; 80202; 81003; 81015; 82140; 83605; 83735; 83880; 84443; 84484; 85025; 86140; 87086; 87899; 93010; 94664; 94667; 94668; 94760; 99223; 99233; 99291; J1630; J1720; J1940; J2060; J2270; J3480; J3490; J7512; J7613; J7620